=== PATIENT | female | born 1950 | race Caucasian/White ===

== ENCOUNTER 2020-01-05 04:46 | Inpatient (IN) | payer MEDICARE, OTHER ==
[~2020-01-05] VITALS: Ht 165.1 cm; Wt 83.9 kg
--- NOTE | 2020-01-05 05:05 | NUR ---
RUE PICC REMOVED PER ED MD ORDERS CATH WAS DISLODGED FROM SITE, TIP INTACT ON REMOVAL.
[2020-01-05] MEDS ORDERED: SODIUM CHLORIDE 0.9% 1000ML 2,000 ML ONE (05:06)
[2020-01-05] MEDS ORDERED: DEXTROSE 5% 250ML 250 ML IV ONE (05:08)
[2020-01-05] MEDS ORDERED: EPINEPHRINE HCL 1:1000 1ML 1 MG/ML AMP ONE ×2 (05:09→13:56)
[2020-01-05 05:10] LABS: BASOPHILS # (AUTO) 0.2 (0.0-0.1); BASOPHILS % 0.7 % (0.0-1.0); EOSINOPHILS # (AUTO) 1.5 (0.0-0.4); EOSINOPHILS % 7.2 % (0.0-6.0); HEMATOCRIT 36.1 % (34.2-44.1); HEMOGLOBIN 10.1 g/dL (12.0-16.0); LYMPHOCYTES # (AUTO) 5.8 (1.0-3.2); LYMPHOCYTES % 27.8 % (18.0-39.1); MEAN CORPUSCULAR HEMOGLOBIN 29.4 pg (28-32); MEAN CORPUSCULAR VOLUME 105.2 fL (81-99); MONOCYTES # (AUTO) 1.4 (0.2-0.8); MONOCYTES % 6.6 % (4.4-11.3); NEUTROPHILS # (AUTO) 10.6 (2.1-6.9); NEUTROPHILS % 50.7 % (38.7-80.0); PLATELET COUNT 324 x10e3/uL (140-360); RED BLOOD COUNT 3.43 x10e6/uL (3.6-5.1); RED CELL DISTRIBUTION WIDTH 17.5 % (11.7-14.4)
[2020-01-05] MEDS: EPINEPHRINE HCL 1:1000 1ML 4 MG in DEXTROSE 5% 250ML 250 ML IV PRN ×4 (05:10→23:44)
--- NOTE | 2020-01-05 05:10 | NUR ---
IO REMOVED FROM RLE, PRESSURE APPLIED
--- OUTSIDE RECORDS SUMMARY | 2020-01-05 05:18 | XMS REPORT | Continuity of Care Document ---
Author Author [facility] t Organization [facility] Address [address] [place] [address] Phone Unavailable Care Team Providers Care Book Publisher Name Role Phone Concha EDWITT, Halima PCP [place] DEWITT, Ray Attphys Cristino DEWITT, Bonnie Gaona Attphys Concepción DEWITT, Anant Attphys Alexia DEWITT, Anna Attphys Mary DEWITT, Sheryl Portillo Attphys Patricia DEWITT, Lele Hardy Attphys Chuck DEWITT, Deepali Silva Attphys [phone] Stepan DEWITT, Chidi Attphys Shayna DEWITT, Bri Attphys Margret DEWITT, Bonnie Telles Attphys Casie SCIENTIST PROPAGATOR, Radha Attphys Aravind DEWITT, Carlyn Campoverde Attphys Neville DEWITT, Luis Angel Adams Attphys Jason DEWITT, Stefani Attphys Roselyn DEWITT, Irvin Leon Attphys Sammi DEWITT, Juan Ma Attphys [phone] Adelaida DEWITT, Melvin Attphys Meenakshi Briceno Attphys Baldo DEWITT, Janiya Carlson Attphys [phone] Booker DEWITT, H Miguel Attphys Ruben DEWITT, Dorota Arusha Attphys iTm DEWITT, Errol Majed Attphys Aria Franz Attphys Unavailable Concha DEWITT, Halima Attphys Shahriar DEWITT, Boi Chicho Attphys Marla ROLLE, Shiloh Attphys Unavailable Ronda DEWITT, Ilene Attphys Gavi Kidd Attphys Unavailable Isabelle DEWITT, Dillan Guardado Attphys Ji ROLLE, Clarisa Attphys Unavailable Neha Machuca Attphys Unavailable Zacarias Cruz MD Attphys Tavares DEWITT, Forrest Hartseem Attphys Bladimir DEWITT, Karla Attphys Jessica DEWITT, Herbie Attphys Dontrell ROLLE, Crystal Attphys Unavailable Michael, Coleen Attphys Unavailable Cindi DEWITT, Katt Henderson Attphys Rutledge, Joyce Attphys Unavailable CHIHARA, RAY Admphys Unavailable TIM, MAJED Admphys Unavailable AMBROCIO MIRANDAA Admphys Unavailable Meenakshi Briceno Unavailable Payers Payer Name Policy Type Policy Number Effective Date Expiration Date S emilee MEDICAREMEDICARE PART A AND [id number] 2013-PresentHOUS [place], [place] [id number] 2013 00:00:00 Clarence Hanks CIGNACIGNA OPEN [id number] 2011-PresentHMO [id number] 2011 00:00:00 Clarence Hanks KINDREDKINDRED [id number] 2019-PresentKindred [id number] 2019 00:00:00 Clarence Hanks Problems Condition Name Condition Details Condition Category Status Onset Date Resolution Date Last Treatment Date Treating Clinician Comments Source Esophageal abnormality Esophageal abnormality Disease Active 2019-12-06 00:00:00 Clarence ojeda Peripheral eosinophilia Peripheral eosinophilia Disease Active 2019-10-25 00:00:00 Clarence ojeda Metabolic acidosis Metabolic acidosis Disease Active 2019-10-21 00:00:0 0 Clarence Hanks PAF (paroxysmal atrial fibrillation) PAF (paroxysmal atrial fibrillation) Disease Active 2019-10-21 00:00:00 Clarence Hanks Axillary artery thrombosis, left/ S/P thrombectomy Axi llary artery thrombosis, left/ S/P thrombectomy Disease Active 2019-10-05 00:00:00 Clarence Hanks Hypothermia associated with surgery Hypothermia associated with surgery Disease Active 2019-10-05 00:00:00 [place] Anasarca Anasarca Disease Active 2019-10-05 00:00:00 Clarence Hanks Red man syndrome (suspected) Red man syndrome (suspected) Disease Active 2019-10-05 00:00:00 Clarence Hanks Acute on chronic anemia Acute on chronic anemia Disease Active 2019-09-29 00:00:00 Clarence ojeda Respiratory failure requiring intubation Respiratory f ailure requiring intubation Disease Active 2019-09-22 00:00:00 Paolo Hanks Severe sepsis Severe sepsis Disease Active 2019-09-14 00:00:00 Clarence Hanks Acute postoperative pulmonary insufficiency Acute post operative pulmonary insufficiency Disease Active 2019-09-14 00:00:00 Clarence Hanks S/P L thoracotomy S/P L thoracotomy Disease Active 2019-09-14 00:00:00 Clarence Hanks s/p Hiatal Hernia repair with intercostal muscle flap s/p Hiatal Hernia repair with intercostal muscle flap Disease Active 2019-09-14 00:00:00 Clarence Hanks s/p Resection of distal esophagus, gastric pouch and j ejunostomy s/p Resection of distal esophagus, gastric pouch and jejunostomy Disease Active 2019-09-14 00:00:00 Clarence ojeda RONALD (acute kidney injury) RONALD (acute kidney injury) Disease Ac tive 2019-09-14 00:00:00 Clarence ojeda Moderate to severe tricuspid regurgitation Moderate to severe tricuspid regurgitation Disease Active 2019-09-14 00:00:00 Clarence Hanks Pulmonary hypertension Pulmonary hypertension Disease Active 2019-09-14 00:00:00 Clarence ojeda Gastrointestinal hemorrhage Gastrointestinal hemorrhage Disease Active 2019-09-13 00:00:00 Clarence Hanks Esophageal and gastrojejunostomhy perforation Esophage al and gastrojejunostomhy perforation Disease Active 2019-09-13 00:00:00 Clarence Hanks Physical deconditioning Physical deconditioning Disease Active 2019-03-28 00:00:00 Clarence ojeda Hospital-acquired pneumonia Hospital-acquired pneumonia Disease Active 2019-03-27 00:00:00 Clarence Hanks Postoperative abdominal pain Postoperative abdominal pain Disease Active 2019-03-27 00:00:00 Clarence Hanks G tube feedings G tube feedings Disease Active 2019-03-19 00:00:00 Clarence Hanks Macrocytic anemia Macrocytic anemia Disease Active 2019-03-17 00:00:00 Clarence Hanks Chronic marginal ulcer with perforation Chronic marginal ulc er with perforation Disease Active 2019-03-15 00:00:00 Overv iew: Added automatically from request for surgery [id number] Clarence Hanks Perforated abdominal viscus Perforated abdominal viscus Disease Active 2019-03-15 00:00:00 Clarence Hanks GENERALIZED ANXIETY DISORDER Condition Active 2019-02-21 00:00:00 2019-02-21 19:33:47 Meenakshi Briceno [facility] DEPRESSIVE DISORDER, MAJOR, SINGLE EPISODE, MILD Condi tion Active 2019-02-21 00:00:00 2019-02-21 19:33:47 Meenakshi Briceno [facility] RA (rheumatoid arthritis) RA (rheumatoid arthritis) Disease Ac tive 2018-12-31 00:00:00 Clarence ojeda Essential hypertension Essential hypertension Disease Active 2018-12-31 00:00:00 Clarence ojeda Acquired hypothyroidism Acquired hypothyroidism Disease Active 2018-12-31 00:00:00 Clarence ojeda Intractable vomiting with nausea Intractable vomiting with nause a Disease Active 2018-08-31 00:00:00 Dre Hanks Failure to thrive in adult Failure to thrive in adult Disease Active 2018-07-30 00:00:00 Clarence ojeda Acute cystitis without hematuria Acute cystitis without hematuri a Disease Active 2018-07-27 00:00:00 [place] Rotator cuff tendonitis, left Rotator cuff tendonitis, left Disease Active 2018-05-18 00:00:00 Clarence Hanks Chronic left shoulder pain Chronic left shoulder pain Disease Active 2018-05-11 00:00:00 Clarence ojeda Pulmonary arterial hypertension Pulmonary arterial hypertension Dis ease Active 2018-03-24 00:00:00 Clarence Hanks History of Jaycob-en-Y gastric bypass History of Jaycob-en-Y gastric bypass Disease Active 2018-03-24 00:00:00 Dre Fuist Hiatal hernia Hiatal hernia Disease Active 2018-03-24 00:00:00 Clarence Hanks Compression deformity of vertebra Compression deformity of verte bra Disease Active 2018-03-24 00:00:00 Overview: T12 [place] Marginal ulcer Marginal ulcer Disease Active 2018-01-09 00:00:00 Clarence Hanks Gastric bypass status for obesity Gastric bypass status for obes ity Disease Active 2017-08-20 00:00:00 Dre Hanks Depression Depression Disease Active 2017-08-20 00:00:00 Clarence Hanks Lumbar disc herniation Lumbar disc herniation Disease Active 2017-08-20 00:00:00 Clarence ojeda Chronic back pain Chronic back pain Disease Active 2017-08-20 00:00:00 Clarence Hanks Anxiety Anxiety Disease Active 2017-08-20 00:00:00 Clarence Hanks Pure hypercholesterolemia Pure hypercholesterolemia Disease Ac tive 2017-08-20 00:00:[address] PUD (peptic ulcer disease) PUD (peptic ulcer disease) Disease Active 2017-08-20 00:00:00 Clarence ojeda Insomnia Insomnia Disease Active 2017-08-20 00:00:00 Clarence Hanks Hepatic steatosis Hepatic steatosis Disease Active 2017-01-22 00:00:00 Clarence Hanks Hypertension Hypertension Disease Active Clarence Hanks Hyperlipidemia Hyperlipidemia Disease Active Clarence Hanks GERD (gastroesophageal reflux disease) GERD (gastroesophagea l reflux disease) Disease Active [facility] Gastric ulcer, chronic Gastric ulcer, chronic Disease Active Clarence Hanks Clotting disorder Clotting disorder Disease Active Clarence Hanks Difficulty in swallowing Difficulty in swallowing Disease Active Overview: NO SOLIDS. PT STATES ABLE TAKE HER MEDICATIONS. Clarence Hanks Disease of thyroid gland Disease of thyroid gland Disease Active Overview: subclinical hypothyroid Clarence Hanks Diverticulosis Diverticulosis Disease Active Clarence Hanks Exercises 3 to 4 times per week Exercises 3 to 4 times per week Dis ease Active Overview: WALKS FOR 30 MIN. PT STATES WILL GET SOB IF SHE GOES UP TWO FLIGHTS OF STAIRS. Clarence Hanks Fractures Fractures Disease Active Kianna Hanks History of Past Illness Condition Name Condition Details Condition Category Status Onset Date Resolution Date Last Treatment Date Treating Clinician Comments Source Shock circulatory Shock circulatory Disease Resolved 2019-10-05 00:00:00 2019-10-21 00:00:00 2019-10-21 13:26:27 Clarence Hanks Normal anion gap metabolic acidosis Normal anion gap metabolic a cidosis Disease Resolved 2019-09-30 00:00:00 2019-10-05 00:00:00 2019-10-05 17:10:33 Clarence Hanks Lactic acidosis Lactic acidosis Disease Resolved 2019-09-14 00:0 0:00 2019-09-29 00:00:00 2019-09-29 12:30:07 Clarence Mendez odist Leukopenia Leukopenia Disease Resolved 2019-09-14 00:00:00 00:00:00 2019-09-29 12:30:03 Clarence Hanks Abnormal result of cardiovascular functi on study suggestive of non-ST elevation myocardial infarction (NSTEMI) Abnormal result of cardiovascular functi on study suggestive of non-ST elevation myocardial infarction (NSTEMI) Disease Resolved 2019-03-19 00:00:00 2019-03-28 00:00:00 2019-03-28 06:13:51 Clarence Hanks Allergies, Adverse Reactions, Alerts This patient has no known allergies or adverse reactions. Family History Family Member Diagnosis Comments Start Date Stop Date Source Natural mother Lung cancer Clarence Epstein ethodist Natural sister Lung cancer Clarence Epstein ethodist Natural son COPD [facility] [facility] Social History Social Habit Start Date Stop Date Quantity Comments Source Sex Assigned At F Kianna Hanks Exposure to SARS-CoV-2 (event) Not sure Clarence Hanks Tobacco use and exposure 2019-12-13 00:00:00 2019-12-13 00:00:00 Shay courtney used Clarence Hanks Alcohol intake 2019-12-13 00:00:00 2019-12-13 00:00:00 Current drinker of alcohol (finding) Clarence Hanks social history reviewed E&M 2019-06-23 14:01:23 2019-06-23 14:01 :23 reviewed today Replaced By [facility] social history E&M 2019-06-23 14:01:23 2019-06-23 14:01:23 ed. , once, has one adult son who lives close by and another daughter who lives in [place]. for 35 yrs. City: [facility]. State: [place]. 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 Replaced By [facility] drug use, illicit 2019-06-23 14:01:23 2019-06-23 14:01:23 Never Replaced By [facility] alcohol use 2019-06-23 14:01:23 2019-06-23 14:01:23 Currently Replaced By [facility] if the patient is using/has used a vapin g item, Current, Former, Never Used, Not asked 2019-06-23 14:01:23 2019-06-23 14:01:23 No L formerly [facility] family support 2019-02-08 14:40:20 2019-02-08 14:40:20 , once, has one adult son who lives close by and another daughter who lives in [place]. for 35 yrs. Replaced By [facility] home/family situation, assessment 2019-02-08 14:40:20 2019-02-08 14:40:20 lives by herself Replaced By [facility] Alcohol Comment 2018-07-27 00:00:00 2018-07-27 00:00:00 Rarely. Clarence Hanks Smoking Status Start Date Stop Date Source Never smoker Clarence Mcclure t Medications Ordered Medication Name Filled Medication Name Start Date Stop Da te Current Medication? Ordering Clinician Indication Dosage Frequency Signature (SIG) Comments Components Source sertraline (ZOLOFT) 25 MG tablet 2019-12-28 00:00:00 01-26 23:59:00 Yes 25mg QD Take 1 tablet (25 mg total) by mouth medhat ly for 30 days. Clarence Hanks levothyroxine (SYNTHROID) 200 mcg tablet 2019-12 00:00:00 2020-01-27 23:59:00 Yes 200ug QD 1 tablet (200 mcg total) by g-tube route daily for 30 days. Clarence Hanks furosemide (LASIX) 20 mg tablet 2019-12-28 00:00:00 23:59:00 Yes 20mg QD Take 1 tablet (20 mg total) by mouth daily for 30 days. Clarence Hanks fluconazole in NaCl (DIFLUCAN) 400 mg/200 mL IVPB 2019-12-28 00:00:00 2020-01-02 23:59:00 No 400mg Q24H Infus e 200 mL (400 mg total) into a venous catheter daily for 5 days. Clarence chavez oxymetazoline (AFRIN) 0.05 % nasal spray 2019-12-27 00:00:00 Yes 2{spray} Q.5D 2 sprays into each nostril 2 (two) times a day. Clarence Hanks zinc oxide 20 % ointment 2019-12-27 00:00:00 2020-01-26 23:59:00 Yes Q.[id number] Apply topically 3 (three) times a day as needed for irritation for up to 30 days. Clarence simon vitamin A & D ointment 2019-12-27 00:00:2020-01-26 23:59:00 Yes Apply topically as needed for dry skin for up to 30 days. Clarence Hanks phenol (CHLORASEPTIC) 1.4 % aerosol,spray 2019-03 0-05 00:00:00 2020-01-26 23:59:00 Yes 1{spray} Q6H Apply 1 spray to the mouth or throat every 6 (six) hours as needed (sore throat) for up to 30 days. Clarence Hanks ondansetron (ZOFRAN) 4 mg/2 mL injection 2019-12 00:00:00 2020-01-26 23:59:00 Yes 4mg Q8H Infuse 2 mL (4 mg total) into a venous catheter every 8 (eight) hours as needed for nausea or vomiting for up to 30 days. Clarence Hanks midodrine (PROAMATINE) 5 MG tablet 2019-12-27 00:00:00 2020-01-26 23:59:00 Yes 5mg Q8H Take 1 tablet ( 5 mg total) by mouth every 8 (eight) hours for 30 days. Clarence Hanks flecainide (TAMBOCOR) 100 MG tablet 2019-12-27 00:00:0 0 2020-01-26 23:59:00 Yes 100mg Q.5D Take 1 tablet ( 100 mg total) by mouth every 12 (twelve) hours for 30 days. Clarence Hanks acetaminophen (TYLENOL) 650 mg/20.3 mL solution 2019-12-27 00:00:00 2020-01-26 23:59:00 Yes 1000mg Q8H Take 31.23 mL (1,000 mg total) by mouth every 8 (eight) hours as needed (mild pain) for up to 30 days. Clarence Hanks OLANZapine zydis (ZyPREXA) 5 MG disintegrating tablet 2019-12-27 00:00:00 2020-01-26 23:59:00 Yes 5mg QD Take 1 tablet (5 mg total) by mouth nightly for 30 days. Clarence Hanks ipratropium (ATROVENT) 0.02 % nebulizer solution 2019-12-27 00:00:00 2020-01-26 23:59:00 Yes Esophageal abnormality .5mg Q.33 [id number] Take 2.5 mL (0.5 mg total) by nebulization every 6 (six) hours while awake for 30 days. Clarence Hanks clonAZEPAM (KlonoPIN) 1 MG tablet 2019-12-27 00:00:00 2019 23:59:00 Yes 1mg Q.5D Take 1 tablet (1 mg total) by mouth 2 (two) times a day for 10 days. Clarence Hanks cyanocobalamin 1,000 mcg/mL injection 2019-11-22 00:00 :00 2019-12-27 00:00:00 No 1000ug Q28D Inject 1 mL (1, 000 mcg total) into the shoulder, thigh, or buttocks every 28 days. Clarence Mcclure t pantoprazole 4 mg/mL in sodium chloride injection 2019-11-06 00:00:00 Yes 40mg QD Infuse 10 mL (40 mg total) into a venous catheter daily before breakfast. Clarence Hanks levothyroxine 20 mcg/mL in sodium chloride injection 2019-11-06 00:00:00 2019-12-27 00:00:00 No 80ug QD Infus e 4 mL (80 mcg total) into a venous catheter daily. Clarence Hanks lidocaine (LIDODERM) 5 % 2019-11-06 00:00:00 2019-12-27 00:00:00 No 1{patch} Q24H Place 1 patch on the skin da krista for 30 days. Remove & Discard patch within 12 hours or as directed by MD Clarence Hanks cyanocobalamin, vitamin B-12, (VITAMIN B-12) 1,000 mcg table t, sublingual 2019-11-05 20:35:08 2019-11-05 00:00:[address] under the tongue daily. Clarence Hanks FOLIC ACID/MULTIVIT-MIN/LUTEIN (CENTRUM SILVER ORAL) 2019-11-05 20:35:08 2019-11-05 00:00:00 No 1{tbl} QD Take 1 tablet by lourdes th daily. Clarence Hanks calcium citrate-vitamin D3 (CITRACAL+D) 315-200 mg-unit per tablet 2019-11-05 20:35:08 2019-11-05 00:00:00 No 1{tbl} QD Take 1 tabl et by mouth daily. Clarence Hanks ferrous sulfate 325 (65 FE) MG tablet 2019-11-05 20:35 :08 2019-11-05 00:00:00 No 325mg QD Take 325 mg by mouth daily with breakfas t. Clarence Hanks cholecalciferol, vitamin D3, (VITAMIN D3) 1,000 unit capsule 2019-11-05 20:35:08 2019-11-05 00:00:00 No 1000U QD Take 1,000 Units by mouth daily. Clarence Hanks atorvastatin (LIPITOR) 20 MG tablet 2019-11-05 20:35:0 8 2019-11-05 00:00:00 No 20mg QD Take 20 mg by mouth daily. Default OP in s Clarence Hanks dicyclomine (BENTYL) 10 mg/5 mL syrup 2019-11-05 20:35 :08 2019-11-05 00:00:00 No 20mg Q.25D Take 20 mg by m outh 4 (four) times a day before meals and nightly. Clarence Hanks clonAZEPAM (KlonoPIN) 1 MG tablet 2019-11-05 20:35:08 2019 00:00:00 No 1mg Q.5D Take 1 mg by mouth 2 (two) times a day a s needed for seizures. Clarence Hanks apixaban (ELIQUIS) 5 mg tablet 2019-11-05 00:00:00 Yes 5mg Q.5D Take 1 tablet (5 mg total) by mouth 2 (two) times a day. Clarence Hanks budesonide (PULMICORT) 0.5 mg/2 mL nebulizer solution 2019-11-05 00:00:00 Yes Respiratory failure requiring intubation (HCC) .5mg Q.5D Take 2 mL (0.5 mg total) by nebulization 2 (two) times a day. Clarence Hanks bisacodyL (DULCOLAX) 10 mg suppository 2019-10-23 4 00:00:00 2020-12-05 23:59:00 Yes 10mg Q24H Insert 1 suppo sitory (10 mg total) into the rectum daily as needed for constipation for up to 30 days. Clarence Hanks acetaminophen (TYLENOL) 650 MG suppository 11-04 00:00:00 2019-12-27 00:00:00 No 650mg Q6H Insert 1 suppo sitory (650 mg total) into the rectum every 6 (six) hours as needed for fever for up to 30 days. Clarence Hanks acetylcysteine (MUCOMYST) 200 mg/mL (20 %) nebulizer solutio n 2019-11-05 00:00:00 2019-12-27 00:00:00 No 4mL Q.[id number] Take 4 mL by nebulization every 6 (six) hours while awake. Clarence Hanks BUMETanide (BUMEX) 0.25 mg/mL injection 00:00:00 2019-12-27 00:00:00 No .5mg Q.5D Infuse 2 mL (0 .5 mg total) into a venous catheter 2 (two) times a day. Clarence Hanks zinc oxide-cod liver oil (DESITIN) 40 % paste 20 10-11-13 00:00:00 2019-12-27 00:00:00 No Q.[id number] Ap ply topically 3 (three) times a day as needed (perianal care). Clarence chavez triamcinolone acetonide (triamcinolone 50 mg in lubriderm) 5 0 mg lotion 2019-11-05 00:00:2019-12-27 00:00:00 No 50mg Q.5D Apply 50 mg topically 2 (two) times a day. Clarence Hanks dextrose 50% syringe 2019-11-05 00:00:00 2019-12-27 00:00:00 No 12.5g Infuse 25 mL (12.5 g total) into a venous catheter every 20 (twenty) minutes as needed (If blood glucose is between 41-69 mg/dL). Clarence Hanks dextrose 10 % infusion 2019-11-05 00:00:00 2019-12-27 00:00:00 N o 40mL/h Infuse 40 mL/hr into a venous catheter continuously as neede d (hypoglycemia). Clarence Hanks dextrose 50% syringe 2019-11-05 00:00:00 2019-12-27 00:00:00 No 25g Infuse 50 mL (25 g total) into a venous catheter every 20 (twenty) minutes as needed (If blood glucose is 40 mg/dL or LESS). Clarence Hanks diphenhydrAMINE (BENADRYL) 50 mg/mL injection 20 10-11-13 00:00:00 2019-12-27 00:00:00 No 25mg Q8H Infuse 0.5 mL (25 mg total) into a venous catheter every 8 (eight) hours as needed for itching. Clarence Hanks insulin lispro (HUMALOG, ADMELOG) 100 unit/mL injection 2019-11-05 00:00:00 2019-12-27 00:00:00 No 0U Q4H Injec t 0-7 Units under the skin every 4 (four) hours. Clarence Hanks ipratropium (ATROVENT) 0.02 % nebulizer solution 2019-11-05 00:00:00 2019-12-27 00:00:00 No Respiratory failure requiring intu bation (HCC) .5mg Q.25D Take 2.5 mL (0.5 mg total) by nebulization every 6 (six) hours. Clarence Hanks labetaloL (NORMODYNE) 20 mg/4 mL (5 mg/mL) syringe injection syringe 2019-11-05 00:00:00 2019-12-27 00:00:00 No 5mg Q4H Infuse 1 mL (5 mg total) into a venous catheter every 4 (four) hours as needed (for SBP >160; hold for hr <60). Clarence Hanks metoprolol tartrate (LOPRESSOR) 25 mg tablet 00:00:00 2019-12-27 00:00:00 No 12.5mg Q.5D Take 0.5 table ts (12.5 mg total) by mouth 2 (two) times a day. Clarence Hanks naloxone (NARCAN) 0.4 mg/mL injection 2019-11-05 00:00 :00 2019-12-27 00:00:00 No .2mg Infuse 0.5 mL ( 0.2 mg total) into a venous catheter once as needed for opioid reversal or respiratory depression (as needed for respiratory rate 8 per minute or less OR patient sommnolent and difficult to arouse (POSS GREATER than 3).). Clraence Hanks OLANZapine zydis (ZyPREXA) 5 MG disintegrating tablet 2019-11-05 00:00:00 2019-12-27 00:00:00 No 5mg QD Take 1 tablet (5 mg total) by mouth nightly for 30 days. Clarence Hanks ondansetron (ZOFRAN) 4 mg/2 mL injection 2019-10 00:00:00 2019-12-27 00:00:00 No 4mg Q8H Infuse 2 mL (4 mg total) into a venous catheter every 8 (eight) hours as needed for nausea or vomiting. Clarence Hanks oxymetazoline (AFRIN) 0.05 % nasal spray 2019-10 00:00:00 2019-12-27 00:00:00 No 2{spray} Q.5D 2 sprays into each nostril 2 (two) times a day for 30 days. Clarence Hanks acetaZOLAMIDE 500 mg in dextrose 5% 50 mL IVPB 2 00:00:00 2019-12-06 00:00:00 No 500mg Q6H Infuse 500 mg into a venous catheter every 6 (six) hours. Clarence Hanks traMADoL (ULTRAM) 50 mg tablet 2019-11-05 00:00:00 2019-10-24 4 23:59:00 No acute pain 50mg Q6H Take 1 tablet (50 mg total) by mouth every 6 (six) hours as needed for moderate pain for up to 10 days .acute pain. Clarence Hanks HYDROcodone-acetaminophen (HYCET) 2.5-108.3 mg/5 mL solution 2019-11-05 00:00:00 2019-11-15 23:59:00 No acute pain 10mL Q4H Take 10 mL by mouth every 4 (four) hours as needed for moderate pain for up to 10 days .acute pain. Max Daily Amount: 60 mL Clarence Hanks HYDROcodone-acetaminophen (HYCET) 2.5-108.3 mg/5 mL solution 2019-11-05 00:00:00 2019-11-15 23:59:00 No acute pain 20mL Q4H Take 20 mL by mouth every 4 (four) hours as needed for moderate pain for up to 10 days .acute pain. Max Daily Amount: 120 mL Clarence Hanks ketoconazole (NIZORAL) 2 % shampoo 2019-08-26 00:00:00 23:59:00 No Itchy scalp Q.5W Apply topically 2 (two) times a week for 14 days. Apply to damp skin, lather, leave on 5 minutes, and rinse Clarence Hanks sulfamethoxazole-trimethoprim (BACTRIM DS) 800-160 mg per ta blet 2019-08-26 00:00:00 2019-08-31 23:59:00 No Urinary trac t infection without hematuria, site unspecified 1{tbl} Q.5D Take 1 tablet by lourdes th 2 (two) times a day for 5 days. Clarence Hanks permethrin (Lice Treatment, permethrin,) 1 % liquid 2019-08-26 00:00:00 2019-08-26 23:59:00 No Itchy scalp Apply topically once for 1 dose. Clarence Hanks tiZANidine (ZANAFLEX) 4 MG tablet 2019-08-23 11:49:49 2019 00:00:00 No 4mg QD Take 4 mg by mouth nightly. 1/2 tab ever y 8 hours Clarence Hanks tiZANidine (ZANAFLEX) 4 MG tablet 2019-08-23 00:00:00 2019 23:59:00 No Chronic low back pain, unspecified back pain laterality, unspecified whether sciatica present 2mg Q8H Take 0.5 tablets (2 mg total) by mouth every 8 (eight) hours as needed for muscle spasms for up to 90 days. Clarence Hanks ondansetron (ZOFRAN) 4 MG tablet 2019-06-02 00:00:00 2019-10 00:00:00 No Nausea 4mg Q8H Take 1 tablet (4 mg total) by mouth every 8 (eight) hours as needed for nausea or vomiting. Clarence parker diclofenac (VOLTAREN) 1 % gel 2019-05-24 00:00:00 2019-11-05 00:00:00 No Chronic left shoulder pain Q.25D Apply topically 4 (four) times a day. Clarence Hanks atenolol (TENORMIN) 25 MG tablet 2019-03-30 00:00:00 2019-04 23:59:00 No 25mg QD 1 tablet (25 mg total) by g-tube route daily fo r 30 days. Clarence Hanks TPN FOR DISCHARGE 2019-03-29 00:00:00 2019-11-05 00:00:00 No Patient is on tube feedings(see most recent orders) Clarence Hanks enoxaparin (LOVENOX) 40 mg/0.4 mL syringe 03-29 00:00:00 2019-04-28 23:59:00 No 40mg QD Inject 0.4 mL (40 mg total) under the skin daily for 30 days. Clarence Hanks HYDROcodone-acetaminophen (NORCO) 7.5-325 mg per tablet 2019-03-29 00:00:00 2019-03-29 00:00:00 No acute pain 1{tbl} Q6H 1 tab let by g-tube route every 6 (six) hours as needed for moderate pain or severe pain for up to 8 days .acute pain. Max Daily Amount: 4 tablets [place] [facility] methocarbamol (ROBAXIN) 500 MG tablet 2019-03-29 00:00 :00 2019-03-29 00:00:00 No 500mg Q.25D 1 tablet (500 m g total) by g-tube route 4 (four) times a day for 30 days. Clarence Hanks acetaminophen-codeine (TYLENOL WITH CODEINE #3) 300-30 mg pe r tablet 2019-03-29 00:00:00 2019-03-29 00:00:00 No acute pain 1{tbl} Q4H Take 1 tablet by mouth every 4 (four) hours as needed for severe pain for up to 10 days .acute pain. Clarence Hanks (CLONAZEPAM) 1 MG TABS 2019-02-08 00:00:00 Yes Meenakshi Briceno Take 1/2-1 tablet By Mouth As Needed daily for anxiety Replaced By [facility] (MIRTAZAPINE) 45 MG TABS 2019-02-08 00:00:00 Yes Manjula zaid Briceno 1{Tablet} 1xD Take 1 tablet By Mouth [facility] (DOXEPIN HCL) 10 MG CAPS 2019-02-08 00:00:00 2019-06-23 00 :00:00 No Meenakshi Briceno 1{Capsule} 1xD Take 1 capsule By Mouth [facility] ZOLOFT (SERTRALINE HCL) 100 MG TABS 2019-02-08 00:00:0 0 2019-06-23 00:00:00 No Meenakshi Briceno 1{Tablet} 1xD Take 1 tablet By Mouth [facility] ondansetron (ZOFRAN) 4 MG tablet 2019-02-03 00:00:00 2019-05 00:00:00 No Nausea 4mg Q8H Take 1 tablet (4 mg total) by mouth every 8 (eight) hours as needed for nausea or vomiting. Clarence Epstein ethodi promethazine (PHENERGAN) 12.5 MG tablet 00:00:00 2019-02-18 23:59:00 No 12.5mg Q6H Take 1 tablet (12.5 mg total) by mouth every 6 (six) hours as needed for nausea or vomiting for up to 30 days. Clarence Hanks promethazine (PHENERGAN) 12.5 MG tablet 00:00:00 2019-01-19 00:00:00 No TAKE 1 TABLET BY LOURDES TH EVERY 6 HOURS NEEDED FOR VOMITING Clarence Hanks sulfamethoxazole-trimethoprim (BACTRIM DS) 800-160 mg per ta blet 2019-01-06 00:00:00 2019-01-11 23:59:00 No Urinary trac t infection without hematuria, site unspecified 1{tbl} Q.5D Take 1 tablet by lourdes th 2 (two) times a day for 5 days. Clarence Hanks escitalopram (LEXAPRO) 10 MG tablet 2018-12-31 00:00:0 0 2019-03-31 23:59:00 No Current moderate episode of major depressive disorder without prior episode (HCC) 10mg QD Take 1 tablet (10 mg total) by mouth daily for 90 days. Clarence Hanks mirtazapine (REMERON) 45 MG tablet 2018-12-31 00:00:00 202 23:59:00 No Current moderate episode of major depres sive disorder without prior episode (HCC) 45mg QD Take 1 tablet (45 mg total) by mouth nightly fo r 90 days. Clarence Hanks ondansetron (ZOFRAN) 4 MG tablet 2018-12-31 00:00:00 2018-12 00:00:00 No Nausea 4mg Q8H Take 1 tablet (4 mg total) by mouth every 8 (eight) hours as needed for nausea or vomiting. Clarence parker nitrofurantoin, macrocrystal-monohydrate, (MACROBID) 100 MG capsule 2018-12-31 00:00:00 2019-01-07 23:59:00 No Urinary trac t infection without hematuria, site unspecified 100mg Q.5D Take 1 capsule (100 mg total) by mouth 2 (two) times a day for 7 days. Clarence Hanks sucralfate (CARAFATE) 1 gram tablet 2018-11-04 00:00:0 0 2019-11-05 00:00:00 No 1g Q.25D Take 1 tablet (1 g total) by mouth 4 (fo ur) times a day. Clarence Hanks diclofenac (VOLTAREN) 1 % gel 2018-11-04 00:00:00 2019-05-23 00:00:00 No Chronic left shoulder pain Q.25D Apply topically 4 (four) times a day. Clarence Hanks TPN FOR DISCHARGE 2018-09-07 00:00:00 2019-03-29 00:00:00 No See most recent TPN order. Clarence Hanks Immunizations Ordered Immunization Name Filled Immunization Name Date Status Comments Source Tdap 2019-08-06 00:00:00 Mary Hanks FLUZONE HIGH-DOSE PF 2018-12-31 00:00:00 Completed Clarence Hanks FLUCELVAX QUAD PF 2018-01-10 00:00:00 Completed Clarence Hanks Vital Signs Vital Name Observation Time Observation Value Comments Source Heart rate 2019-12-27 17:41:00 86 /min Clarence Hanks Respiratory rate 2019-12-27 17:41:00 18 /min Hayley Hanks Oxygen saturation in Arterial blood by Pulse oximetry 2019-03 17:30:00 97 /min Clarence Hanks Systolic blood pressure 2019-12-27 15:50:00 112 mm[Hg] Clarence Hanks Diastolic blood pressure 2019-12-27 15:50:00 64 mm[Hg] Clarence Hanks Body temperature 2019-12-27 15:50:00 36.94 Emi Hayley Hanks Body weight 2019-12-27 03:41:52 77.111 kg Clarence Hanks BMI 2019-12-27 03:41:52 27.44 kg/m2 Clarence Hanks Body height 2019 06:21:00 167.6 cm Clarence Hanks pulse rate 2019-02-08 14:40:20 121 /min [facility] ACTV8 blood pressure, diastolic 2019-02-08 14:40:20 70 mm[Hg] Replaced By [facility] blood pressure, systolic 2019-02-08 14:40:20 97 mm[Hg] Replaced By [facility] weight E&M 2019-02-08 14:40:20 116.38 [lb_av] Replaced By [facility] weight in kilograms E&M 2019-02-08 14:40:20 52.90 kg Replaced By [facility] height in centimeters E&M 2019-02-08 14:40:20 165.10 cm Replaced By [facility] Procedures Procedure Date / Time Performed Performing Clinician Sourc e POC GLUCOSE 2019-12-27 12:04:00 Jimenez Carr [facility] COMPLETE BLD COUNT W/AUTO DIFF 2019-12-27 05:00:00 Franklin Carr B NATRIURETIC PEPTIDE 2019-12-27 05:00:00 Jimenez Carr on [facility] POC GLUCOSE 2019-12-27 04:52:00 Jimenez Carr [facility] BASIC METABOLIC PANEL 2019-12-27 04:00:00 Jimenez Carr on [facility] MAGNESIUM LEVEL 2019-12-27 04:00:00 Jimenez Carr [facility] ESTIMATED GFR 2019-12-27 04:00:00 Jimenez Carr [facility] POC GLUCOSE 2019-12-26 23:54:00 Jimenez Carr [facility] POC GLUCOSE 2019-12-26 17:11:00 Jimenez Carr [facility] POC GLUCOSE 2019-12-26 11:20:00 Jimenez Carr [facility] POC GLUCOSE 2019-12-26 07:42:00 Jimenez Carr [facility] POC GLUCOSE 2019-12-26 05:30:00 Jimenez Carr [facility] HC COMPLETE BLD COUNT W/AUTO DIFF 2019-12-26 05:20:00 Franklin Carr [facility] B NATRIURETIC PEPTIDE 2019-12-26 05:20:00 Jimenez Carr on [facility] BASIC METABOLIC PANEL 2019-12-26 04:00:00 Jimenez Carr on [facility] MAGNESIUM LEVEL 2019-12-26 04:00:00 Jimenez Carr [facility] ESTIMATED GFR 2019-12-26 04:00:00 Jimenez Carr [facility] POC GLUCOSE 2019-12-25 20:50:00 Jimenez Carr [facility] POC GLUCOSE 2019-12-25 17:14:00 Jimenez Carr [facility] POC GLUCOSE 2019-12-25 11:41:00 Jimenez Carr [facility] ECG 12-LEAD 2019-12-25 10:16:59 Benjamín Shiragabriel Lima Meth odist POC GLUCOSE 2019-12-25 07:15:00 Jimenez Carr [facility] HC COMPLETE BLD COUNT W/AUTO DIFF 2019-12-25 05:00:00 Franklin Carr [facility] B NATRIURETIC PEPTIDE 2019-12-25 05:00:00 Jimenez Carr on [facility] POC GLUCOSE 2019-12-25 04:11:00 Jimenez Carr [facility] BASIC METABOLIC PANEL 2019-12-25 04:00:00 Jimenez Carr on [facility] MAGNESIUM LEVEL 2019-12-25 04:00:00 Jimenez Carr [facility] ESTIMATED GFR 2019-12-25 04:00:00 Jimenez Carr [facility] POC GLUCOSE 2019-12-24 21:03:00 Jimenez Carr [facility] POC GLUCOSE 2019-12-24 17:31:00 Jimenez Carr [facility] POC GLUCOSE 2019-12-24 12:51:00 Jimenez Carr [facility] ECG 12-LEAD 2019-12-24 09:23:57 BenjamínShira Meth odist POC GLUCOSE 2019-12-24 09:10:00 Jimenez Carr [facility] XR CHEST 1 VW PORTABLE 2019-12-24 08:45:00 Robyn Pacheco on [facility] HC COMPLETE BLD COUNT W/AUTO DIFF 2019-12-24 05:12:00 Franklin Carr [facility] BASIC METABOLIC PANEL 2019-12-24 05:12:00 Jimenez Carr on [facility] MAGNESIUM LEVEL 2019-12-24 05:12:00 Jimenez Carr [facility] B NATRIURETIC PEPTIDE 2019-12-24 05:12:00 Jimenez Carr on [facility] ESTIMATED GFR 2019-12-24 05:12:00 Jimenez Carr Met [facility] POC GLUCOSE 2019-12-24 00:27:00 Jimenez Carr Met [facility] POC GLUCOSE 2019-12-23 20:42:00 Jimenez Carr [facility] POC GLUCOSE 2019-12-23 17:30:00 Jimenez Carr [facility] POC GLUCOSE 2019-12-23 12:03:00 Jimenez Crar [facility] POC GLUCOSE 2019-12-23 09:00:00 Jimenez Carr [facility] POC GLUCOSE 2019-12-23 05:20:00 Jimenez Carr [facility] HC COMPLETE BLD COUNT W/AUTO DIFF 2019-12-23 04:15:00 Franklin Carr [facility] BASIC METABOLIC PANEL 2019-12-23 04:15:00 Jimenez Carr on [facility] MAGNESIUM LEVEL 2019-12-23 04:15:00 Jimenez Carr [facility] B NATRIURETIC PEPTIDE 2019-12-23 04:15:00 Jimenez Carr on [facility] ESTIMATED GFR 2019-12-23 04:15:00 Jimenez Carr [facility] POC GLUCOSE 2019-12-22 20:56:00 Jimenez Carr [facility] POC GLUCOSE 2019-12-22 16:58:00 Jimenez Carr [facility] POC GLUCOSE 2019-12-22 11:44:00 Jimenez Carr [facility] FL MODIFIED BARIUM SWALLOW 2019-12-22 10:31:23 Junior Robyn Boone david [facility] POC GLUCOSE 2019-12-22 07:28:00 Jimenez Carr [facility] HC COMPLETE BLD COUNT W/AUTO DIFF 2019-12-22 03:55:00 Franklin Carr [facility] BASIC METABOLIC PANEL 2019-12-22 03:55:00 Jimenez Carr on [facility] MAGNESIUM LEVEL 2019-12-22 03:55:00 Jimenez Carr [facility] B NATRIURETIC PEPTIDE 2019-12-22 03:55:00 Jimenez Carr on [facility] ESTIMATED GFR 2019-12-22 03:55:00 Jimenez Carr [facility] POC GLUCOSE 2019-12-21 21:07:00 Jimenez Carr [facility] POC GLUCOSE 2019-12-21 17:39:00 Jimenez Carr [facility] POC GLUCOSE 2019-12-21 11:29:00 Jimenez Carr [facility] PROTEIN, TOTAL 2019-12-21 08:05:00 Josiah Rdz [facility] POC GLUCOSE 2019-12-21 07:26:00 Jimenez Carr [facility] POC GLUCOSE 2019-12-21 03:56:00 Jimenez Carr [facility] POC GLUCOSE 2019-12-20 21:12:00 Jimenez Carr [facility] POC GLUCOSE 2019-12-20 18:59:00 Jimenez Carr [facility] POC GLUCOSE 2019-12-20 12:28:00 Jimenez Carr [facility] POC GLUCOSE 2019-12-20 07:20:00 Jimenez Carr [facility] BASIC METABOLIC PANEL 2019-12-20 05:25:00 Manjinder Lopez [facility] HC COMPLETE BLD COUNT W/AUTO DIFF 2019-12-20 05:25:00 Myah Lopez [facility] MAGNESIUM LEVEL 2019-12-20 05:25:00 BiowCjgavi Mendez odist PHOSPHORUS LEVEL 2019-12-20 05:25:00 Manjinder Lopez [facility] ESTIMATED GFR 2019-12-20 05:25:00 Luke Sparks Meth [facility] POC GLUCOSE 2019-12-19 20:54:00 Jimenez Carr [facility] POC GLUCOSE 2019-12-19 17:14:00 Jimenez Carr [facility] PROTHROMBIN TIME WITH INR 2019-12-19 16:00:00 Jimenez Carr XR CHEST 1 VW 2019-12-19 11:56:08 Wisam Yang US THORACENTESIS WITH IMAGING 2019-12-19 11:45:00 Jimenez Carr AEROBIC CULTURE 2019-12-19 11:18:00 Jimenez Carr [facility] ANAEROBIC CULTURE 2019-12-19 11:18:00 Jimenez Carr M ethodist GRAM STAIN 2019-12-19 11:18:00 Jimenez Carr [facility] GLUCOSE LEVEL, MISC FLUID 2019-12-19 11:18:00 Jimenez Carr PROTEIN, MISC FLUID 2019-12-19 11:18:00 Jimenez Carr CELL COUNT AND DIFFERENTIAL, BODY FLUID 2019-12-19 11:18:00 Jimenez Carr POC GLUCOSE 2019-12-19 07:53:00 Jimenez Carr [facility] XR CHEST 1 VW PORTABLE 2019-12-19 07:13:38 BiowManjinder on [facility] BASIC METABOLIC PANEL 2019-12-19 03:55:00 Biow, Manjinder Kiser n [facility] HC COMPLETE BLD COUNT W/AUTO DIFF 2019-12-19 03:55:00 Myah Lopez [facility] MAGNESIUM LEVEL 2019-12-19 03:55:00 BioManjinder padilla Meth odist PHOSPHORUS LEVEL 2019-12-19 03:55:00 Manjinder Lopez Met [facility] TOTAL IRON BINDING CAPACITY 2019-12-19 03:55:00 Jimenez Carr ESTIMATED GFR 2019-12-19 03:55:00 Luke Sparks Meth odist POC GLUCOSE 2019-12-18 22:14:00 Jimenez Carr [facility] TRANSFUSE RED BLOOD CELLS 2019-12-18 20:56:19 Jimenez Carr [facility] POC GLUCOSE 2019-12-18 18:01:00 Jimenez Carr [facility] TRANSFUSE RED BLOOD CELLS 2019-12-18 16:38:04 Jimenez Carr [facility] US CHEST 2019-12-18 14:47:17 Jimenez Carr [facility] POC GLUCOSE 2019-12-18 11:17:00 Jimenez Carr [facility] ECG 12-LEAD 2019-12-18 09:03:29 Shira Butts Meth [facility] POC GLUCOSE 2019-12-18 07:40:00 Jimenez Carr [facility] XR CHEST 1 VW PORTABLE 2019-12-18 06:38:29 BiowManjinder [facility] PREPARE RBC 2019-12-18 06:00:00 Jimenez Carr [facility] BASIC METABOLIC PANEL 2019-12-18 04:00:00 BiowManjinder [facility] HC COMPLETE BLD COUNT W/AUTO DIFF 2019-12-18 04:00:00 Myah Lopez [facility] MAGNESIUM LEVEL 2019-12-18 04:00:00 Manjinder Lopez odist PHOSPHORUS LEVEL 2019-12-18 04:00:00 Manjinder Lopez hodist ESTIMATED GFR 2019-12-18 04:00:00 Luke Sparks Meth [facility] SMEAR REVIEW 2019-12-18 04:00:00 Luke Sparks Meth odist POC GLUCOSE 2019-12-17 21:11:00 Jimenez Carr [facility] POC GLUCOSE 2019-12-17 17:22:00 Jimenez Carr [facility] POC GLUCOSE 2019-12-17 12:09:00 Jimenez Carr [facility] ECG 12-LEAD 2019-12-17 10:49:39 Shira Butts Meth [facility] ECG 12-LEAD 2019-12-17 10:39:56 BiowManjinder Meth odist POC GLUCOSE 2019-12-17 07:53:00 Jimenez Carr [facility] POC GLUCOSE 2019-12-17 03:44:00 Jimenez Carr [facility] HC COMPLETE BLD COUNT W/AUTO DIFF 2019-12-17 03:00:00 Franky Lewis [facility] MAGNESIUM LEVEL 2019-12-17 00:00:00 Hemal Kaur [facility] PHOSPHORUS LEVEL 2019-12-17 00:00:00 Hemal Kaur ethodist BASIC METABOLIC PANEL 2019-12-17 00:00:00 Phi Lewis ESTIMATED GFR 2019-12-17 00:00:00 Luke Sparks Meth odist POC GLUCOSE 2019-12-16 23:10:00 Jimenez Carr Met [facility] POC GLUCOSE 2019-12-16 21:10:00 Jimenez Carr Met [facility] POC GLUCOSE 2019-12-16 17:11:00 Jimenez Carr Met [facility] POC GLUCOSE 2019-12-16 12:27:00 Jimenez Carr [facility] ECG 12-LEAD 2019-12-16 10:35:41 Shira Butts Meth odist POC GLUCOSE 2019-12-16 08:38:00 Jimenez Carr [facility] XR CHEST 1 VW PORTABLE 2019-12-16 06:15:54 BiowManjinder on [facility] POC GLUCOSE 2019-12-16 04:55:00 Jimenez Carr [facility] MAGNESIUM LEVEL 2019-12-16 04:50:00 Hemal Kaur [facility] PHOSPHORUS LEVEL 2019-12-16 04:50:00 Hemal Kaur ethodist HC COMPLETE BLD COUNT W/AUTO DIFF 2019-12-16 04:50:00 Franky Lewis [facility] BASIC METABOLIC PANEL 2019-12-16 04:50:00 Phi Lewis ESTIMATED GFR 2019-12-16 04:50:00 Luke Sparks Meth odist POC GLUCOSE 2019-12-16 00:31:00 Jimenez Carr Met [facility] POC GLUCOSE 2019-12-15 20:55:00 Jimenez Carr Met [facility] POC GLUCOSE 2019-12-15 17:15:00 Jimenez Carr [facility] ECG 12-LEAD 2019-12-15 12:10:45 BenjamínShira Clarence Meth odist POC GLUCOSE 2019-12-15 12:07:00 Jimenez Carr [facility] FL MODIFIED BARIUM SWALLOW 2019-12-15 11:15:24 Robyn Pacheco [facility] HEMOGLOBIN & HEMATOCRIT 2019-12-15 08:35:00 TaffePhi villeda POC GLUCOSE 2019-12-15 07:50:00 Jimenez Carr [facility] XR CHEST 1 VW PORTABLE 2019-12-15 05:49:44 TafPhi sanders POC GLUCOSE 2019-12-15 05:00:00 Jimenez Carr [facility] MAGNESIUM LEVEL 2019-12-15 04:30:00 Hemal Kaur [facility] PHOSPHORUS LEVEL 2019-12-15 04:30:00 Hemal Kaur M ethodist HC COMPLETE BLD COUNT W/AUTO DIFF 2019-12-15 04:30:00 Franky Lewis BASIC METABOLIC PANEL 2019-12-15 04:30:00 Phi Lewis FOLATE LEVEL 2019-12-15 04:30:00 Phi Lewis ESTIMATED GFR 2019-12-15 04:30:00 Luke Sparks Meth odist POC GLUCOSE 2019-12-15 00:10:00 Jimenez Carr [facility] POC GLUCOSE 2019-12-14 20:25:00 Jimenez Carr [facility] POC GLUCOSE 2019-12-14 17:18:00 Jimenez Carr Met [facility] POC GLUCOSE 2019-12-14 13:23:00 Jimenez Carr Met [facility] POC GLUCOSE 2019-12-14 09:01:00 Jimenez Carr [facility] XR CHEST 1 VW PORTABLE 2019-12-14 09:00:00 Josiah Rdz [facility] POC GLUCOSE 2019-12-14 04:53:00 Jimenez Carr [facility] HC COMPLETE BLD COUNT W/AUTO DIFF 2019-12-14 04:25:00 Franky Lewis COMPREHENSIVE METABOLIC PANEL 2019-12-14 04:25:00 Phi Lewis [facility] ESTIMATED GFR 2019-12-14 04:25:00 Luke Sparks Meth odist POC GLUCOSE 2019-12-14 01:13:00 Jimenez Carr [facility] POC GLUCOSE 2019-12-13 21:15:00 Jimenez Carr [facility] POC GLUCOSE 2019-12-13 17:14:00 Jimenez Carr [facility] XR CHEST 1 VW PORTABLE 2019-12-13 13:59:48 Josiah Harper fernandaellen Clarence [facility] POC GLUCOSE 2019-12-13 11:49:00 Jimenez Carr [facility] RESPIRATORY CULTURE 2019-12-13 11:21:00 Jimenez Carr [facility] FUNGUS CULTURE 2019-12-13 11:21:00 Jimenez Carr Met [facility] AFB CULTURE 2019-12-13 11:21:00 Jimenez Carr Met [facility] AFB STAIN 2019-12-13 11:21:00 Jimenez Carr [facility] FUNGUS SMEAR 2019-12-13 11:21:00 Jimenez Carr [facility] XR CHEST 1 VW PORTABLE 2019-12-13 10:05:08 Robyn Pacheco on [facility] CONSULT TO OSTOMY CARE NURSE 2019-12-13 08:52:18 Robyn Pacheco [facility] POC GLUCOSE 2019-12-13 08:06:00 Jimenez Carr [facility] POC GLUCOSE 2019-12-13 04:37:00 Jimenez Carr [facility] HC COMPLETE BLD COUNT W/AUTO DIFF 2019-12-13 03:00:00 Franklin Carr [facility] COMPREHENSIVE METABOLIC PANEL 2019-12-13 03:00:00 Jimenez Carr ESTIMATED GFR 2019-12-13 03:00:00 Jimenez Carr [facility] POC GLUCOSE 2019-12-13 00:33:00 Jimenez Carr Met [facility] POC GLUCOSE 2019-12-12 20:43:00 Jimenez Carr Met [facility] POC GLUCOSE 2019-12-12 15:58:00 Jimenez Carr Met [facility]ist POC GLUCOSE 2019-12-12 13:04:00 Jimenez Carr Met [facility]ist POC GLUCOSE 2019-12-12 09:12:00 Jimenez Carr Met [facility]ist POC GLUCOSE 2019-12-12 07:26:00 Jimenez Carr Met [facility] POC GLUCOSE 2019-12-12 04:57:00 Jimenez Carr [facility] COMPREHENSIVE METABOLIC PANEL 2019-12-12 03:07:00 Jimenez Carr ESTIMATED GFR 2019-12-12 03:07:00 Jimenez Carr [facility] HC COMPLETE BLD COUNT W/AUTO DIFF 2019-12-12 02:20:00 Franklin Carrist POC GLUCOSE 2019-12-12 00:37:00 Jimenez Carr [facility] POC GLUCOSE 2019-12-11 20:40:00 Jimenez Carr Met [facility]ist POC GLUCOSE 2019-12-11 16:52:00 Jimenez Carr Met [facility]ist POC GLUCOSE 2019-12-11 12:31:00 Jimenez Carr Met [facility] POC GLUCOSE 2019-12-11 08:47:00 Jimenez Carr [facility] ARTERIAL BLOOD GAS 2019-12-11 06:30:00 Mika Posey ethodist POC GLUCOSE 2019-12-11 04:46:00 Jimenez Carr [facility] HC COMPLETE BLD COUNT W/AUTO DIFF 2019-12-11 03:00:00 Franklin Carr COMPREHENSIVE METABOLIC PANEL 2019-12-11 03:00:00 Jimenez Carr [facility] PREALBUMIN LEVEL 2019-12-11 03:00:00 Jimenez Carr Me [facility]odist PROTHROMBIN TIME WITH INR 2019-12-11 03:00:00 [place] Chyna F jordyn Hanks PARTIAL THROMBOPLASTIN TIME (PTT) 2019-12-11 03:00:00 Oyewole, A desola Roxanna Hanks ESTIMATED GFR 2019-12-11 03:00:00 Jimenez Carr [facility] POC GLUCOSE 2019-12-11 00:59:00 Jimenez Carr Met [facility] POC GLUCOSE 2019-12-10 21:04:00 Jimenez Carr Met [facility] POC GLUCOSE 2019-12-10 16:59:00 Jimenez Carr [facility] XR CHEST 1 VW PORTABLE 2019-12-10 13:15:04 Junior Robyn Dre on [facility] POC GLUCOSE 2019-12-10 11:40:00 Jimenez Carr [facility] POC GLUCOSE 2019-12-10 07:53:00 Jimenez Carr [facility] POC GLUCOSE 2019-12-10 04:43:00 Jimenez Carr [facility] COMPREHENSIVE METABOLIC PANEL 2019-12-10 03:30:00 Oyewole, Odetteso la Roxanna Lima [facility] ESTIMATED GFR 2019-12-10 03:30:00 Luke Sparks Meth odist PROTHROMBIN TIME WITH INR 2019-12-10 03:00:00 [place], Chyna F olnakia Lima [facility] PARTIAL THROMBOPLASTIN TIME (PTT) 2019-12-10 03:00:00 Oyewole, Nguyen desola Roxanna Lima [facility] ARTERIAL BLOOD GAS 2019-12-10 03:00:00 Oyewole, Chyna Roxanna Lima [facility] HC COMPLETE BLD COUNT W/AUTO DIFF 2019-12-10 03:00:00 Jose Carrillo [facility] POC GLUCOSE 2019-12-10 00:39:00 Jimenez Carr [facility] POC GLUCOSE 2019-12-09 21:16:00 Jimenez Carr [facility] POC GLUCOSE 2019-12-09 16:33:00 Jimenez Carr [facility] HC COMPLETE BLD COUNT W/AUTO DIFF 2019-12-09 16:24:00 Oyewole, A desola Roxanna Clarence [facility] POC GLUCOSE 2019-12-09 13:50:00 Jimenez Carr [facility] CT CHEST WO CONTRAST 2019-12-09 10:55:[address] SOFT TISSUE NECK WO CONTRAST 2019-12-09 10:54:53 BioManjinder padilla [facility] POC GLUCOSE 2019-12-09 08:34:00 Jimenez Carr [facility] POC GLUCOSE 2019-12-09 04:57:00 Jimenez Carr [facility] BASIC METABOLIC PANEL 2019-12-09 03:55:00 Josiah Rdz HC COMPLETE BLD COUNT W/AUTO DIFF 2019-12-09 03:55:00 Josiah Alvarez MAGNESIUM LEVEL 2019-12-09 03:55:00 Josiah Rdz PHOSPHORUS LEVEL 2019-12-09 03:55:00 Josiah Rdzto n [facility] PARTIAL THROMBOPLASTIN TIME (PTT) 2019-12-09 03:55:00 Kevin Méndez PROTHROMBIN TIME WITH INR 2019-12-09 03:55:00 Kevin Méndez ESTIMATED GFR 2019-12-09 03:55:00 Luke Sparks odist ARTERIAL BLOOD GAS 2019-12-09 03:55:00 Luke Sparks ethodist POC GLUCOSE 2019-12-09 01:20:00 Jimenez Carr [facility] ARTERIAL BLOOD GAS 2019-12-08 23:10:00 Carter Rueda [facility] XR CHEST 1 VW PORTABLE 2019-12-08 21:31:13 Carter Rueda [facility] POC GLUCOSE 2019-12-08 21:02:00 Jimenez Carr [facility] ARTERIAL BLOOD GAS 2019-12-08 20:15:00 Morris Moss [facility] POC GLUCOSE 2019-12-08 16:31:00 Jimenez Carr [facility] US DUPLEX VENOUS LOWER EXTREMITY BILATERAL 2019-12-08 14:45:00 W Na mo Clarence [facility] POC GLUCOSE 2019-12-08 12:38:00 Jimenez Carr [facility] POC GLUCOSE 2019-12-08 08:40:00 Jimenez Carr [facility] XR CHEST 1 VW PORTABLE 2019-12-08 06:04:01 Josiah Rdz [facility] POC GLUCOSE 2019-12-08 04:09:00 Jimenez Carr [facility] HC COMPLETE BLD COUNT W/AUTO DIFF 2019-12-08 03:35:00 Josiah Alvarez MAGNESIUM LEVEL 2019-12-08 03:35:00 Josiah Rdz PHOSPHORUS LEVEL 2019-12-08 03:35:00 Josiah Rdz ESTIMATED GFR 2019-12-08 03:35:00 Luke Sparks odakira COMPREHENSIVE METABOLIC PANEL 2019-12-08 03:35:00 Luke Sparks POC GLUCOSE 2019-12-08 00:21:00 Jimenez Carr hodakira URINE CULTURE 2019-12-08 00:03:00 Carter Rueda BLOOD CULTURE, AEROBIC & ANAEROBIC 2019 22:00:00 Carter Monten[place] BLOOD CULTURE, AEROBIC & ANAEROBIC 2019 21:30:00 Carter [place] URINALYSIS SCREEN AND MICROSCOPY, WITH REFLEX TO CULTURE 21:30:00 Carter Rueda XR CHEST 1 VW PORTABLE 2019 21:25:14 Josiah Rdz ARTERIAL BLOOD GAS 2019 21:20:00 Josiah Rdz BASIC METABOLIC PANEL 2019 21:20:00 Josiah Rdz HC COMPLETE BLD COUNT W/AUTO DIFF 2019 21:20:00 Josiah Alvarez PHOSPHORUS LEVEL 2019 21:20:00 Josiah Rdz MAGNESIUM LEVEL 2019 21:20:00 Josiah Rdz PROTHROMBIN TIME WITH INR 2019 21:20:00 Carter Rueda IONIZED CALCIUM, ARTERIAL 2019 21:20:00 Luke Sparks ESTIMATED GFR 2019 21:20:00 Luke Sparks LACTIC ACID LEVEL 2019 21:20:00 Luke Sparks Nm thodist POC GLUCOSE 2019 21:20:00 Jimenez Carr Met hodist ECG 12-LEAD 2019 20:54:58 RuedaCarter [employer] SODIUM LEVEL, SYRINGE 2019 19:39:00 Jimenez Carr on [employer] ARTERIAL BLOOD GAS, CORRECTED 2019 19:39:00 Jimenez Carr [employer] HEMOGLOBIN, SYRINGE 2019 19:39:00 Jimenez Carr [employer] POTASSIUM, SYRINGE 2019 19:39:00 Jimenez Carr [employer] GLUCOSE LEVEL, SYRINGE 2019 19:39:00 Jimenez Carr [employer] IONIZED CALCIUM, ARTERIAL 2019 19:39:00 Jimenez Carr [employer] HEMATOCRIT 2019 19:39:00 Jimenez Carr Met hodist LACTIC ACID, SYRINGE 2019 19:39:00 Jimenez Carr [employer] PROTHROMBIN TIME WITH INR 2019 19:39:00 Jimenez Carr PLATELET COUNT 2019 19:39:00 Jimenez Carr Met hodist FIBRINOGEN 2019 19:39:00 Jimenez Carr Met hodist ARTERIAL BLOOD GAS, CORRECTED 2019 18:16:00 Jimenez Carrist HEMOGLOBIN, SYRINGE 2019 18:16:00 Jimenez Carr POTASSIUM, SYRINGE 2019 18:16:00 Jimenez Carrist SODIUM LEVEL, SYRINGE 2019 18:16:00 Jimenez Carr on [employer] IONIZED CALCIUM, ARTERIAL 2019 18:16:00 Jimenez Carr [employer] GLUCOSE LEVEL, SYRINGE 2019 18:16:00 Jimenez Carr [employer] CO AN ELECTIVE ENDOTRACHEAL AIRWAY 2019 17:55:27 Marjan Garza [employer] ARTERIAL LINE 2019 17:52:07 Marjan Mcguire [employer] ARTERIAL BLOOD GAS, CORRECTED 2019 16:13:00 Jimenez Carr [employer] SODIUM LEVEL, SYRINGE 2019 16:13:00 Jimenez Carr on [employer] POTASSIUM, SYRINGE 2019 16:13:00 Jimenez Carr [employer] IONIZED CALCIUM, ARTERIAL 2019 16:13:00 Jimenez Carr [employer] HEMOGLOBIN, SYRINGE 2019 16:13:00 Jimenez Carr [employer] GLUCOSE LEVEL, SYRINGE 2019 16:13:00 Jimenez Carr [employer] FIBRINOGEN 2019 13:56:00 Jimenez Carr Met hodist PLATELET COUNT 2019 13:56:00 Jimenez Carr Met hodist PROTHROMBIN TIME WITH INR 2019 13:56:00 Jimenez Carr [employer] HEMOGLOBIN & HEMATOCRIT 2019 13:56:00 Jimenez Carr stoneha [employer] ARTERIAL BLOOD GAS, CORRECTED 2019 13:01:00 Jimenez Carr [employer] SODIUM LEVEL, SYRINGE 2019 13:01:00 Jimenez Carr on [employer] POTASSIUM, SYRINGE 2019 13:01:00 Jimenez Carr [employer] HEMOGLOBIN, SYRINGE 2019 13:01:00 Jimenez Carr [employer] GLUCOSE LEVEL, SYRINGE 2019 13:01:00 Jimenez Carr [employer] IONIZED CALCIUM, ARTERIAL 2019 13:01:00 Jimenez Carr [employer] TRANSFUSE RED BLOOD CELLS 2019 11:48:18 Anna Hale [employer] GLUCOSE LEVEL, SYRINGE 2019 11:30:00 Jimenez Carr [employer] IONIZED CALCIUM, ARTERIAL 2019 11:30:00 Jimenez Carr [employer] HEMOGLOBIN, SYRINGE 2019 11:30:00 Jimenez Carr [employer] POTASSIUM, SYRINGE 2019 11:30:00 Jimenez Carr [employer] SODIUM LEVEL, SYRINGE 2019 11:30:00 Jimenez Carr on [employer] ARTERIAL BLOOD GAS, CORRECTED 2019 11:30:00 Jimenez Carr TRANSFUSE RED BLOOD CELLS 2019 10:25:17 Anna Hale ARTERIAL BLOOD GAS, CORRECTED 2019 10:03:00 Jimenez Carr SODIUM LEVEL, SYRINGE 2019 10:03:00 Jimenez Carr on [facility] POTASSIUM, SYRINGE 2019 10:03:00 Jimenez Carr [facility] HEMOGLOBIN, SYRINGE 2019 10:03:00 Jimenez Carr IONIZED CALCIUM, ARTERIAL 2019 10:03:00 Jimenze Carr GLUCOSE LEVEL, SYRINGE 2019 10:03:00 Jimenez Carr [facility] ANAEROBIC CULTURE 2019 09:11:00 Jimenez Carr [facility] AEROBIC CULTURE 2019 09:11:00 Jimenez Carr [facility] AFB CULTURE 2019 09:11:00 Jimenez Carr [facility] FUNGUS CULTURE 2019 09:11:00 Jimenez Carr [facility] [employer] STAIN 2019 09:11:00 Jimenez Carr [facility] FUNGUS SMEAR 2019 09:11:00 Jimenez Carr [facility] CYTOLOGY (NON-GYNECOLOGICAL) REQUEST 2019 09:11:00 Han Carr SURGICAL PATHOLOGY REQUEST 2019 09:00:00 Jimenez Carr ARTERIAL LINE 2019 08:36:42 Anna Hale [facility] CO AN ELECTIVE ENDOTRACHEAL AIRWAY 2019 08:35:38 Anna Hale TYPE AND SCREEN 2019 02:30:00 Robyn Pacheco Meth [facility] PARTIAL THROMBOPLASTIN TIME (PTT) 2019 02:30:00 Robyn Pacheco BASIC METABOLIC PANEL 2019 02:30:00 Josiah Rdz HC COMPLETE BLD COUNT W/AUTO DIFF 2019 02:30:00 Josiah Alvarez MAGNESIUM LEVEL 2019 02:30:00 Josiah Rdz PHOSPHORUS LEVEL 2019 02:30:00 Josiah Rdz [place] [facility] ESTIMATED GFR 2019 02:30:00 Luek Sparks [facility] SMEAR REVIEW 2019 02:30:00 Luke Sparks [facility] PREPARE RBC 2019 02:30:00 Robyn Pacheco PREPARE FRESH FROZEN PLASMA 2019 02:30:00 Robyn Pacheco POC GLUCOSE 2019-12-06 21:12:00 Jimenez Carr [facility] POC GLUCOSE 2019-12-06 17:28:00 Jimenez Carr [facility] HC COMPLETE BLD COUNT W/AUTO DIFF 2019-12-06 15:20:00 Franklin Carr SMEAR REVIEW 2019-12-06 15:20:00 Jimenez Carr [facility] COVID-19 QUALITATIVE PCR 2019-12-06 15:08:00 Jimenez Carr COMPREHENSIVE METABOLIC PANEL 2019-12-06 14:48:00 Jimenez Carr PREALBUMIN LEVEL 2019-12-06 14:48:00 Jimenez Carr [facility] T4, FREE 2019-12-06 14:48:00 Jimenez Carr [facility] THYROID STIMULATING HORMONE 2019-12-06 14:48:00 Jimenez Carr ESTIMATED GFR 2019-12-06 14:48:00 Jimenez Carr [facility] PROTHROMBIN TIME WITH INR 2019-12-06 14:20:00 Jimenez Carr IR GASTROSTOMY CATHETER EVAL/EXCHANGE 2019-11-26 14:04:55 Lindsey Hernandez POC GLUCOSE 2019-11-05 19:48:00 Luke Sparks Meth [facility] POC GLUCOSE 2019-11-05 15:27:00 Luke Sparks XR PICC CHEST PORTABLE 2019-11-05 14:11:39 Luke Sparks on [facility] HC CVL PICC INSERT 5 YRS OR > W/RS&I AND IMG GUID 2019-11-05 12:48:37 Scarlett Weldon HC CATH DUAL LUMEN PICC # [id number] 0261-08-14 12:48:37 Nguyen Weldon POC GLUCOSE 2019-11-05 11:47:00 Luke Sparks Meth [facility] POC GLUCOSE 2019-11-05 07:43:00 Luke Sparks [facility] PREALBUMIN LEVEL 2019-11-05 07:19:00 Connor Navarro [facility] ALBUMIN LEVEL 2019-11-05 07:19:00 Connor Navarro [facility] POC GLUCOSE 2019-11-05 03:26:00 Luke Sparks Meth [facility] XR CHEST 1 VW PORTABLE 2019-11-05 02:43:00 Vesta Stubbs [facility] HC COMPLETE BLD COUNT W/AUTO DIFF 2019-11-05 00:30:00 Jose Millard [facility] BASIC METABOLIC PANEL 2019-11-05 00:30:00 Krystle Landrum MAGNESIUM LEVEL 2019-11-05 00:30:00 Krystle Landrum [facility] PHOSPHORUS LEVEL 2019-11-05 00:30:00 Krystle Landrum [facility] IONIZED CALCIUM 2019-11-05 00:30:00 Vesta Stubbs odist ESTIMATED GFR 2019-11-05 00:30:00 Vesta Stubbs odist SMEAR REVIEW 2019-11-05 00:30:00 Vesta Stubbs odist POC GLUCOSE 2019-11-05 00:14:00 Luke Sparks Meth [facility] POC GLUCOSE 2019-11-04 20:28:00 Luke Sparks Meth [facility] POC GLUCOSE 2019-11-04 15:49:00 Luke Sparks [facility] MIDLINE INSERTION ATTEMPT - UNSUCCESSFUL 2019-11-04 15:38:33 Scarlett Gordon US GUIDED VASCULAR ACCESS 2019-11-04 15:36:01 Scarlett Weldon Clarence Hanks HC CATH DUAL LUMEN PICC # [id number] [id number] 15:36:01 Shiraz Nguyen mayorga Clarence [facility] POC GLUCOSE 2019-11-04 12:18:00 Luke Sparks Meth [facility] POC GLUCOSE 2019-11-04 07:41:00 Luke Sparks Meth [facility] XR CHEST 1 VW PORTABLE 2019-11-04 06:31:00 DoVesta on [facility] POC GLUCOSE 2019-11-04 03:48:00 Luke Sparks [facility] HC COMPLETE BLD COUNT W/AUTO DIFF 2019-11-04 00:41:00 Jose Millard [facility] BASIC METABOLIC PANEL 2019-11-04 00:41:00 Krystle Landrum MAGNESIUM LEVEL 2019-11-04 00:41:00 Krystle Landrum [facility] PHOSPHORUS LEVEL 2019-11-04 00:41:00 Krystle Landrum IONIZED CALCIUM 2019-11-04 00:41:00 Do, Vesta Mendez odist TYPE AND SCREEN 2019-11-04 00:41:00 DoVesta odist ESTIMATED GFR 2019-11-04 00:41:00 DoVesta SMEAR REVIEW 2019-11-04 00:41:00 DoVesta Meth odist HEPATIC FUNCTION PANEL 2019-11-04 00:41:00 DoVesta on [facility] POC GLUCOSE 2019-11-03 23:46:00 Luke Sparks Meth [facility] POC GLUCOSE 2019-11-03 19:35:00 Luke Sparks Meth [facility] POC GLUCOSE 2019-11-03 16:01:00 Luke Sparks Meth [facility] ARTERIAL BLOOD GAS 2019-11-03 13:26:00 Fuentes Lares [facility] POC GLUCOSE 2019-11-03 11:31:00 Luke Sparks Meth [facility] POC GLUCOSE 2019-11-03 07:30:00 Luke Sparks Meth [facility] XR CHEST 1 VW PORTABLE 2019-11-03 06:09:00 Jose Millard [place] [facility] POC GLUCOSE 2019-11-03 03:24:00 Luke Sparks Meth [facility] THYROID STIMULATING HORMONE 2019-11-03 01:08:00 Geva, Jose Young [place] [facility] T4, FREE 2019-11-03 01:08:00 Geva, Jose Obregonjere [place] [facility] BASIC METABOLIC PANEL 2019-11-03 01:08:00 Geva, Jose Erickson on [facility] MAGNESIUM LEVEL 2019-11-03 01:08:00 Geva, Jose Obregonjere [place] [facility] PHOSPHORUS LEVEL 2019-11-03 01:08:00 Geva, Jose Obregonjere [place] [facility] ESTIMATED GFR 2019-11-03 01:08:00 Gebuddy, Jose Hector [place] [facility] HC COMPLETE BLD COUNT W/AUTO DIFF 2019-11-03 00:00:00 Gebuddy, Jose [place] [facility] SMEAR REVIEW 2019-11-03 00:00:00 Gebuddy, Jose Hector [place] [facility] POC GLUCOSE 2019-11-02 23:44:00 JonathanveranguyenLuke Meth odist POC GLUCOSE 2019-11-02 20:31:00 Jonathanveranguyen Luke Clarence Meth odist POC GLUCOSE 2019-11-02 15:45:00 JonathanveranguyenLuke Meth odist MAGNESIUM LEVEL 2019-11-02 14:55:00 Chip Lundberg ethodist PHOSPHORUS LEVEL 2019-11-02 14:55:00 Chip Lundberg [facility] POTASSIUM LEVEL 2019-11-02 14:55:00 Chip Lundberg ethodist POC GLUCOSE 2019-11-02 11:49:00 Jonathanveranguyen Luke Clarence Meth odist POC GLUCOSE 2019-11-02 07:45:00 Jonathantraci Luke Clarence Meth odist XR CHEST 1 VW PORTABLE 2019-11-02 07:03:08 Vesta Stubbs on [facility] POC GLUCOSE 2019-11-02 03:43:00 Jonathanveranguyen Luke Clarence Meth od[facility] BASIC METABOLIC PANEL 2019-11-02 00:30:00 Geva, Jose Erickson on [facility] MAGNESIUM LEVEL 2019-11-02 00:30:00 [facility] 2019-11-02 00:30:00 Geva, Jose Hector [place] [facility] HC COMPLETE BLD COUNT W/AUTO DIFF 2019-11-02 00:30:00 Freeman, Jose Hector [place] [facility] IONIZED CALCIUM 2019-11-02 00:30:00 DoVesta Clarence Meth odist ESTIMATED GFR 2019-11-02 00:30:00 DoVesta Clarenec Meth odist POC GLUCOSE 2019-11-01 23:45:00 ChiveraaLuke L[place] Meth odist POC GLUCOSE 2019-11-01 20:07:00 ChiveraaLuke Meth odist POC GLUCOSE 2019-11-01 16:45:00 ChiveraaLuke [place] Meth [facility] TRANSFUSE RED BLOOD CELLS 2019-11-01 15:55:21 Elijah Jenkins CO AN ELECTIVE SURGICAL AIRWAY 2019-11-01 14:55:05 Elijah Jenkins INSERTION, GASTROSTOMY TUBE, LAPAROSCOPIC 2019-11-01 14:14:00 Chidi Parisi [facility] POC GLUCOSE 2019-11-01 11:47:00 ChiveraLuke kramer [place] [facility] POC GLUCOSE 2019-11-01 08:17:00 ChiveraLuke kramer [place] [facility] XR CHEST 1 VW PORTABLE 2019-11-01 05:26:52 Gebuddy, Jose [place] [facility] POC GLUCOSE 2019-11-01 03:57:00 ChiveraLuke kramer Meth od[facility] BASIC METABOLIC PANEL 2019-11-01 01:52:00 Gebuddy, Jose Erickson on [facility] MAGNESIUM LEVEL 2019-11-01 01:52:00 Gebuddy, Jose Hector [place] [facility] PHOSPHORUS LEVEL 2019-11-01 01:52:00 Geva, Jose Hector [place] [facility] ESTIMATED GFR 2019-11-01 01:52:00 Chitraci Luke Clarence Meth odist PARTIAL THROMBOPLASTIN TIME (PTT) 2019-11-01 01:30:00 Tegan Lechuga HC COMPLETE BLD COUNT W/AUTO DIFF 2019-11-01 01:30:00 Gavi Landrum PROTHROMBIN TIME WITH INR 2019-11-01 01:30:00 Catherine Lechuga SMEAR REVIEW 2019-11-01 01:30:00 Luke Sparks Meth od[facility] POC GLUCOSE 2019-10-31 23:52:00 Luke Sparks Meth odist POC GLUCOSE 2019-10-31 19:57:00 Luke Sparks Meth odist POC GLUCOSE 2019-10-31 16:16:00 Luke Sparks Meth odist POTASSIUM LEVEL 2019-10-31 15:55:00 Isabella Tavares Meth odist MAGNESIUM LEVEL 2019-10-31 15:55:00 Isabella Tavares Meth odist POC GLUCOSE 2019-10-31 11:36:00 Luke Sparks Meth odist POC GLUCOSE 2019-10-31 08:19:00 Luke Sparks Meth odist HEMOGLOBIN & HEMATOCRIT 2019-10-31 07:42:00 Cristinadona Isabella workman [facility] POTASSIUM LEVEL 2019-10-31 07:09:00 Isabella Tavares Meth odist MAGNESIUM LEVEL 2019-10-31 07:09:00 Isabella Tavares Meth odist TRANSFUSE RED BLOOD CELLS 2019-10-31 06:59:30 Areli Berumen XR CHEST 1 VW PORTABLE 2019-10-31 05:36:07 GevaJose TYPE AND SCREEN 2019-10-31 04:00:00 Areli Berumen M ethodist POC GLUCOSE 2019-10-31 04:00:00 Luke Sparks Meth odist PREPARE RBC 2019-10-31 04:00:00 Shira Woods HC COMPLETE BLD COUNT W/AUTO DIFF 2019-10-31 02:10:00 Gavi Landrum BASIC METABOLIC PANEL 2019-10-31 02:10:00 Krystle Landrum MAGNESIUM LEVEL 2019-10-31 02:10:00 Krystle Landrum PHOSPHORUS LEVEL 2019-10-31 02:10:00 Krystle Landrum PARTIAL THROMBOPLASTIN TIME (PTT) 2019-10-31 02:10:00 Tegan Lechuga ESTIMATED GFR 2019-10-31 02:10:00 ChiharLuke kramer Meth odist SMEAR REVIEW 2019-10-31 02:10:00 Luke Sparks Meth odist POC GLUCOSE 2019-10-31 00:47:00 Luke Sparks Meth odist POC GLUCOSE 2019-10-30 23:43:00 Luke Sparks Meth odist POC GLUCOSE 2019-10-30 19:57:00 Luke Sparks Meth odist POC GLUCOSE 2019-10-30 15:45:00 Luke Sparks Meth odist PARTIAL THROMBOPLASTIN TIME (PTT) 2019-10-30 12:00:00 Imtiaznguyen Adam [place] [facility] POC GLUCOSE 2019-10-30 11:36:00 Luke Sparks Meth odist POC GLUCOSE 2019-10-30 07:33:00 Luke Sparks odist COVID-19 QUALITATIVE PCR 2019-10-30 07:12:00 Krystle Landrum PARTIAL THROMBOPLASTIN TIME (PTT) 2019-10-30 05:59:00 Ha Jean ma XR CHEST 1 VW PORTABLE 2019-10-30 04:42:00 Areli Berumen POC GLUCOSE 2019-10-30 04:06:00 Luke Sparks odist HC COMPLETE BLD COUNT W/AUTO DIFF 2019-10-30 02:06:00 Gavi Landrum BASIC METABOLIC PANEL 2019-10-30 02:06:00 Krystle Landrum MAGNESIUM LEVEL 2019-10-30 02:06:00 Krystle Landrum PHOSPHORUS LEVEL 2019-10-30 02:06:00 Krystle Landrum ESTIMATED GFR 2019-10-30 02:06:00 JonathanveraLuke kramer Meth [facility] SMEAR REVIEW 2019-10-30 02:06:00 JonathanveraLuke kramer Meth odist POC GLUCOSE 2019-10-29 23:35:00 Luke Sparks Meth odist PARTIAL THROMBOPLASTIN TIME (PTT) 2019-10-29 23:00:00 Tegan Lechugaist POC GLUCOSE 2019-10-29 20:18:00 JonathanveraLuke kramer Meth odist PARTIAL THROMBOPLASTIN TIME (PTT) 2019-10-29 16:10:00 Yoko Drew [facility] MAGNESIUM LEVEL 2019-10-29 16:00:00 Silvia Drew Meth odist PHOSPHORUS LEVEL 2019-10-29 16:00:00 Silvia Drew [facility] POTASSIUM LEVEL 2019-10-29 16:00:00 Silvia Drew Meth odist POC GLUCOSE 2019-10-29 15:52:00 Luke Sparks Meth odist POC GLUCOSE 2019-10-29 11:49:00 Luke Sparks Meth odist PARTIAL THROMBOPLASTIN TIME (PTT) 2019-10-29 08:40:00 Tegan Lechuga [facility] POC GLUCOSE 2019-10-29 07:46:00 [place] Luke Clarence Meth odist POC GLUCOSE 2019-10-29 04:29:00 [place] Luke Clarence Meth odist XR CHEST 1 VW PORTABLE 2019-10-29 04:09:00 Elham Fuentes ECG 12-LEAD 2019-10-29 03:36:45 Elham Fuentes on [facility] PARTIAL THROMBOPLASTIN TIME (PTT) 2019-10-29 01:45:00 Timmy Schilling HC COMPLETE BLD COUNT W/AUTO DIFF 2019-10-29 01:45:00 Gavi Landrum BASIC METABOLIC PANEL 2019-10-29 01:45:00 Krystle Landrumist MAGNESIUM LEVEL 2019-10-29 01:45:00 Krystle Landrum [facility] PHOSPHORUS LEVEL 2019-10-29 01:45:00 Krystle Landrum [facility] IONIZED CALCIUM 2019-10-29 01:45:00 Elham Fuentes on [facility] ESTIMATED GFR 2019-10-29 01:45:00 Elham Fuentes on [facility] SMEAR REVIEW 2019-10-29 01:45:00 Elham Fuentes on [facility] POC GLUCOSE 2019-10-28 23:33:00 Luke Sparks Meth odist POC GLUCOSE 2019-10-28 20:27:00 Luke Sparks Meth odist POC GLUCOSE 2019-10-28 16:22:00 Luke Sparks Meth odist POTASSIUM LEVEL 2019-10-28 14:56:00 Chip Lundberg Crista ethodist MAGNESIUM LEVEL 2019-10-28 14:56:00 Chip Lundberg Crista ethodist PHOSPHORUS LEVEL 2019-10-28 14:56:00 Chip Lundberg [facility] POC GLUCOSE 2019-10-28 12:09:00 Luke Sparks Meth od[facility] COVID-19 QUALITATIVE PCR 2019-10-28 09:40:00 Renetta Hartman [facility] POC GLUCOSE 2019-10-28 07:37:00 Luke Sparks Meth od[facility] ECG 12-LEAD 2019-10-28 05:21:30 Elham Fuentes on [facility] XR CHEST 1 VW PORTABLE 2019-10-28 04:04:00 Elham Fuentesist POC GLUCOSE 2019-10-28 03:48:00 Luke Sparks Meth odist BASIC METABOLIC PANEL 2019-10-28 02:23:00 Krystle Landrumist MAGNESIUM LEVEL 2019-10-28 02:23:00 Krystle Landrum [facility] PHOSPHORUS LEVEL 2019-10-28 02:23:00 Krystle Landrum [facility] IONIZED CALCIUM 2019-10-28 02:23:00 Elham Fuentes on [facility] ESTIMATED GFR 2019-10-28 02:23:00 Luke Sparks Meth odist HC COMPLETE BLD COUNT W/AUTO DIFF 2019-10-28 02:05:00 Gavi Landrum PARTIAL THROMBOPLASTIN TIME (PTT) 2019-10-28 02:05:00 Tegan Lechuga [facility] SMEAR REVIEW 2019-10-28 02:05:00 Luke Sparks Meth odist POC GLUCOSE 2019-10-27 23:47:00 Luke Sparks Meth odist POC GLUCOSE 2019-10-27 19:49:00 Luke Sparks Meth odist POC GLUCOSE 2019-10-27 15:35:00 Luke Sparks Meth odist SODIUM LEVEL 2019-10-27 15:24:00 Arnaud Fuentes Blackmon uston [facility] POTASSIUM LEVEL 2019-10-27 15:24:00 Fuentes Lares [facility] POC GLUCOSE 2019-10-27 11:32:00 JonathanveraLuke kramer Clarence Meth odist POC GLUCOSE 2019-10-27 07:30:00 JonathanveranguyenLuke Meth odist XR CHEST 1 VW PORTABLE 2019-10-27 06:50:00 Geva, Jose Hector [place] [facility] POC GLUCOSE 2019-10-27 04:01:00 Luke Sparks Meth odist HC COMPLETE BLD COUNT W/AUTO DIFF 2019-10-27 02:20:00 Gavi Landrum BASIC METABOLIC PANEL 2019-10-27 02:20:00 Krystle Landrum MAGNESIUM LEVEL 2019-10-27 02:20:00 Krystle Landrum [facility] PHOSPHORUS LEVEL 2019-10-27 02:20:00 Krystle Landrum stoneha [facility] PARTIAL THROMBOPLASTIN TIME (PTT) 2019-10-27 02:20:00 Timmy Schilling ESTIMATED GFR 2019-10-27 02:20:00 Luke Sparks Meth odist SMEAR REVIEW 2019-10-27 02:20:00 Luke Sparks Meth odist POC GLUCOSE 2019-10-27 00:19:00 Luke Sparks Meth odist POC GLUCOSE 2019-10-26 19:37:00 ImtiaznguyenLuke Meth odist POC GLUCOSE 2019-10-26 16:09:00 Luke Sparks Meth odist OSMOLALITY, URINE 2019-10-26 15:51:00 Fuentes Lares [facility] POC GLUCOSE 2019-10-26 11:39:00 ImtiaznguyenLuke Meth odist POC GLUCOSE 2019-10-26 07:45:00 Luke Sparks Meth odist XR CHEST 1 VW PORTABLE 2019-10-26 06:22:00 Geva, Jose Hector [place] [facility] POC GLUCOSE 2019-10-26 04:53:00 Luke Sparks Meth odist PARTIAL THROMBOPLASTIN TIME (PTT) 2019-10-26 02:00:00 Timmy Schilling [facility] T4, FREE 2019-10-26 02:00:00 Elvi Butler [facility] HC COMPLETE BLD COUNT W/AUTO DIFF 2019-10-26 02:00:00 Gavi Landrum BASIC METABOLIC PANEL 2019-10-26 02:00:00 Krystle Landrum MAGNESIUM LEVEL 2019-10-26 02:00:00 Krystle Landrum [facility] PHOSPHORUS LEVEL 2019-10-26 02:00:00 Krystle Landrum Kianna ston [facility] ERYTHROPOIETIN 2019-10-26 02:00:00 Hang Li [facility] FERRITIN LEVEL 2019-10-26 02:00:00 Hang Li Nm thodist TOTAL IRON BINDING CAPACITY 2019-10-26 02:00:00 Hang Li TYPE AND SCREEN 2019-10-26 02:00:00 Areli Berumen ethodist ESTIMATED GFR 2019-10-26 02:00:00 Hang Li Nm thodist SMEAR REVIEW 2019-10-26 02:00:00 Hang Li Nm thodist POC GLUCOSE 2019-10-25 23:31:00 Luke Sparks Meth odist POC GLUCOSE 2019-10-25 20:51:00 Luke Sparks Meth odist US CHEST 2019-10-25 18:00:00 Renetta Hartman [facility]odist POC GLUCOSE 2019-10-25 15:52:00 Luke Sparks Meth odist POC GLUCOSE 2019-10-25 12:26:00 Luke Sparks Meth odist ALBUMIN LEVEL 2019-10-25 10:30:00 Jose Millard [facility] PREALBUMIN LEVEL 2019-10-25 10:30:00 Jose Millard [facility] POC GLUCOSE 2019-10-25 07:33:00 Luke Sparks Meth odist XR CHEST 1 VW PORTABLE 2019-10-25 06:36:40 Tarsha Gray [facility] ECG 12-LEAD 2019-10-25 05:29:02 Tarsha Gray [facility] POC GLUCOSE 2019-10-25 04:22:00 Luke Sparks Meth odist IMMUNOGLOBULIN E 2019-10-25 02:12:00 Brayden Couch [facility] BASIC METABOLIC PANEL 2019-10-25 02:00:00 Tarsha Gray on [facility] HC COMPLETE BLD COUNT W/AUTO DIFF 2019-10-25 02:00:00 Nash Gray [facility] IONIZED CALCIUM 2019-10-25 02:00:00 Tarsha Gray [facility] MAGNESIUM LEVEL 2019-10-25 02:00:00 Tarsha Gray [facility] PARTIAL THROMBOPLASTIN TIME (PTT) 2019-10-25 02:00:00 Nash Gray [facility] PHOSPHORUS LEVEL 2019-10-25 02:00:00 Tarsha Gray [facility] SEDIMENTATION RATE 2019-10-25 02:00:00 Brayden Couch [facility] ESTIMATED GFR 2019-10-25 02:00:00 Tarsha Gray [facility] SMEAR REVIEW 2019-10-25 02:00:00 Tarsha Gray [facility] PERIPHERAL SMEAR 2019-10-25 02:00:00 Tarsha Gray [facility] POC GLUCOSE 2019-10-24 23:52:00 Luke Sparks Meth odist POC GLUCOSE 2019-10-24 19:49:00 Luke Sparks Meth odist CORTISOL, 60 MINUTES 2019-10-24 17:08:00 Brayden Couch [facility] POC GLUCOSE 2019-10-24 16:03:00 Luke Sparks Meth odist ADRENOCORTICOTROPIC HORMONE 2019-10-24 13:30:00 Marielle Sousa [facility] CORTISOL LEVEL, RANDOM 2019-10-24 12:03:00 Marielle Sousa on [facility] POC GLUCOSE 2019-10-24 11:29:00 Luke Sparks Meth odist POC GLUCOSE 2019-10-24 07:36:00 Luke Sparks Meth odist XR CHEST 1 VW PORTABLE 2019-10-24 06:05:53 Tarsha Gray [facility] POC GLUCOSE 2019-10-24 04:15:00 Luke Sparks Meth odist BASIC METABOLIC PANEL 2019-10-24 04:00:00 Tarsha Gray on [facility] HC COMPLETE BLD COUNT W/AUTO DIFF 2019-10-24 04:00:00 Nash Gray [facility] MAGNESIUM LEVEL 2019-10-24 04:00:00 Tarsha Gray [facility] PHOSPHORUS LEVEL 2019-10-24 04:00:00 Tarsha Gray [facility] ESTIMATED GFR 2019-10-24 04:00:00 Tarsha Gray [facility] SMEAR REVIEW 2019-10-24 04:00:00 Tarsha Gray [facility] THYROID PEROXIDASE ANTIBODY 2019-10-24 04:00:00 Brayden Couch [facility] ECG 12-LEAD 2019-10-24 03:12:16 Tarsha Gray [facility] POC GLUCOSE 2019-10-24 00:00:00 Luke Sparks Meth odist PARTIAL THROMBOPLASTIN TIME (PTT) 2019-10-23 22:30:00 Tegan Lechuga [facility] POC GLUCOSE 2019-10-23 20:18:00 Luke Sparks Meth odist US DUPLEX VENOUS UPPER EXTREMITY RIGHT 2019-10-23 16:10:00 Brayden Adams [facility] POC GLUCOSE 2019-10-23 15:56:00 Luke Sparks Meth odist PARTIAL THROMBOPLASTIN TIME (PTT) 2019-10-23 15:50:00 Adam Sparks [facility] POC GLUCOSE 2019-10-23 11:46:00 Luke Sparks Meth odist PARTIAL THROMBOPLASTIN TIME (PTT) 2019-10-23 07:56:00 Timmy Schilling [facility] POC GLUCOSE 2019-10-23 07:36:00 Luke Sparks Meth odist XR CHEST 1 VW PORTABLE 2019-10-23 06:48:46 Tarsha Gray [facility] ECG 12-LEAD 2019-10-23 04:52:21 Marina Tarsha Lima [facility] POC GLUCOSE 2019-10-23 04:17:00 Luke pSarks Meth odist BASIC METABOLIC PANEL 2019-10-23 01:04:00 Marina Tarsha Erickson on [facility] HC COMPLETE BLD COUNT W/AUTO DIFF 2019-10-23 01:04:00 Nash Gray [facility] IONIZED CALCIUM 2019-10-23 01:04:00 Tarsha Gray [facility] MAGNESIUM LEVEL 2019-10-23 01:04:00 Lance Grayia Clarence Met hodist PARTIAL THROMBOPLASTIN TIME (PTT) 2019-10-23 01:04:00 Nash Gray [facility] PHOSPHORUS LEVEL 2019-10-23 01:04:00 Tarsha Gray Me thodist ESTIMATED GFR 2019-10-23 01:04:00 Tarsha Gray Met [facility] SMEAR REVIEW 2019-10-23 01:04:00 Tarsha Gray Met [facility] POC GLUCOSE 2019-10-23 00:07:00 Luke Sparks Meth odist POC GLUCOSE 2019-10-22 20:27:00 Luke Sparks odist OVA & PARASITES, CONCENTRATED EXAMINATION 2019-10-22 18:20:0 0 Brayden Couch OVA & PARASITES, TRICHROME STAIN 2019-10-22 18:20:00 Brayden Tao OVA & PARASITES, GROSS EXAMINATION 2019-10-22 18:20:00 Brayden Stephen ala OVA & PARASITES, DIRECT EXAMINATION 2019-10-22 18:20:00 Brayden Lopez PERIPHERAL SMEAR 2019-10-22 18:20:00 Brayden Couch T4, FREE 2019-10-22 16:26:00 Silvia Drew Meth odist T3 2019-10-22 16:26:00 Silvia Drew Meth odist POC GLUCOSE 2019-10-22 15:49:00 Luke Sparks Meth odist POC GLUCOSE 2019-10-22 11:46:00 Luke Sparks Meth odist PARTIAL THROMBOPLASTIN TIME (PTT) 2019-10-22 09:29:00 Timmy Schilling THYROID STIMULATING HORMONE 2019-10-22 09:29:00 Silvia Drew CORTISOL LEVEL, RANDOM 2019-10-22 09:29:00 Silvia Drew on [facility] POC GLUCOSE 2019-10-22 07:22:00 Luke Sparks Meth odakira XR CHEST 1 VW PORTABLE 2019-10-22 06:34:42 Jose Millardhe Hayley ton [facility] POC GLUCOSE 2019-10-22 04:02:00 Luke Sparks Meth odist PARTIAL THROMBOPLASTIN TIME (PTT) 2019-10-22 00:25:00 Adam Sparks HC COMPLETE BLD COUNT W/AUTO DIFF 2019-10-22 00:25:00 Do, Peg Hanks BASIC METABOLIC PANEL 2019-10-22 00:25:00 Do, Vesta Kiser n [facility] [facility] ARTERIAL BLOOD GAS 2019-10-22 00:25:00 DoVesta ethodist MAGNESIUM LEVEL 2019-10-22 00:25:00 DoVesta odist PHOSPHORUS LEVEL 2019-10-22 00:25:00 DoVesta hodakira TYPE AND SCREEN 2019-10-22 00:25:00 DoVesta odist ESTIMATED GFR 2019-10-22 00:25:00 Do, Vesta Mendez odist IONIZED CALCIUM, ARTERIAL 2019-10-22 00:25:00 DoVesta SMEAR REVIEW 2019-10-22 00:25:00 DoVesta Meth odist POC GLUCOSE 2019-10-21 23:52:00 Luke Sparks Meth odist HEMOGLOBIN & HEMATOCRIT 2019-10-21 19:54:00 Coty Saleh [facility] [facility] POC GLUCOSE 2019-10-21 19:54:00 Luke Sparks Meth odist CLOSTRIDIUM DIFFICILE TOXIN 2019-10-21 17:45:00 Danny Pretty [employer] [facility] IONIZED CALCIUM 2019-10-21 17:15:00 Coty Saleh ethodist BASIC METABOLIC PANEL 2019-10-21 17:15:00 Coty Saleh ESTIMATED GFR 2019-10-21 17:15:00 Coty Saleh Crista ethodist MAGNESIUM LEVEL 2019-10-21 17:15:00 Coty Saleh Crista ethodist POC GLUCOSE 2019-10-21 16:12:00 Luke Sparks MISCELLANEOUS REFERRAL TEST 2019-10-21 13:24:00 Fuentes Lares POC GLUCOSE 2019-10-21 12:08:00 Luke Sparks odakira POC GLUCOSE 2019-10-21 08:09:00 Luke Sparks odakira LACTIC ACID LEVEL 2019-10-21 06:54:00 Do, Vesta Casillas thjerry BETA HYDROXYBUTYRATE 2019-10-21 06:54:00 Do, Vesta Hanks XR CHEST 1 VW PORTABLE 2019-10-21 06:15:00 Do, Vesta Hanks TRANSFUSE RED BLOOD CELLS 2019-10-21 05:47:15 Do, Vesta Hanks POC GLUCOSE 2019-10-21 03:49:00 Luke Sparks PARTIAL THROMBOPLASTIN TIME (PTT) 2019-10-21 02:19:00 Adam Sparks HC COMPLETE BLD COUNT W/AUTO DIFF 2019-10-21 02:19:00 Do, Peg Hanks BASIC METABOLIC PANEL 2019-10-21 02:19:00 Do, Vesta Hanks MAGNESIUM LEVEL 2019-10-21 02:19:00 DoVesta PHOSPHORUS LEVEL 2019-10-21 02:19:00 Do, Vesta butler ARTERIAL BLOOD GAS 2019-10-21 02:19:00 Do, Vesta parker IONIZED CALCIUM, ARTERIAL 2019-10-21 02:19:00 Do, Vesta Hanks ESTIMATED GFR 2019-10-21 02:19:00 Do, Vesta edwards SMEAR REVIEW 2019-10-21 02:19:00 Vesta Stubbs odist POC GLUCOSE 2019-10-20 23:55:00 ImtiazLuke kramer [place] Meth odist POC GLUCOSE 2019-10-20 19:36:00 ChiveraLuke kramer Meth odist POC GLUCOSE 2019-10-20 16:39:00 JonathanveraLuke kramer Meth odist POC GLUCOSE 2019-10-20 12:05:00 ChiLuke aviles Meth odist POC GLUCOSE 2019-10-20 07:50:00 Luke Sparks Meth odist ECG 12-LEAD 2019-10-20 07:30:21 Dinh Lee XR CHEST 1 VW PORTABLE 2019-10-20 06:25:00 Dinh Lee [facility] [facility] POC GLUCOSE 2019-10-20 04:21:00 SalinasLuke Clarence Mendez odist BASIC METABOLIC PANEL 2019-10-20 00:48:00 Dinh Lee HC COMPLETE BLD COUNT W/AUTO DIFF 2019-10-20 00:48:00 JesusDinh claros [employer] [facility] MAGNESIUM LEVEL 2019-10-20 00:48:00 JesusDinh claros [facility] PHOSPHORUS LEVEL 2019-10-20 00:48:00 Dinh Lee [employer] [facility] HEPATIC FUNCTION PANEL 2019-10-20 00:48:00 Jaxon Blair ARTERIAL BLOOD GAS 2019-10-20 00:48:00 DoVesta ethodist PARTIAL THROMBOPLASTIN TIME (PTT) 2019-10-20 00:48:00 Adam Sparks ESTIMATED GFR 2019-10-20 00:48:00 DoVesta IONIZED CALCIUM, ARTERIAL 2019-10-20 00:48:00 Vesta Stubbs SMEAR REVIEW 2019-10-20 00:48:00 Vesta Stubbs odist POC GLUCOSE 2019-10-20 00:04:00 [place] Luke Lima Meth odist PARTIAL THROMBOPLASTIN TIME (PTT) 2019-10-19 22:14:00 Tegan Lechuga [facility] [facility] POC GLUCOSE 2019-10-19 19:38:00 Luke Sparks Meth odist NM HEPATOBILIARY 2019-10-19 18:02:01 Evelia Coleman hodist XR CHEST 1 VW PORTABLE 2019-10-19 15:40:00 Chip Lundberg [employer] [facility] HC CVL NON-TUNNELED INSERT 5YRS OR > 2019-10-19 15:28:58 Priyank Orta [employer] [facility] POC GLUCOSE 2019-10-19 11:52:00 ChivearaLuke [facility] PARTIAL THROMBOPLASTIN TIME (PTT) 2019-10-19 11:15:00 Aadm Sparks [facility] POC GLUCOSE 2019-10-19 11:13:00 Luke Sparks [facility] US HEPATIC 2019-10-19 10:35:19 Evelia Coleman Meth od[facility] POC GLUCOSE 2019-10-19 08:31:00 ChiveraaLuke Meth odist HEPATIC FUNCTION PANEL 2019-10-19 08:12:00 Evelia Coleman on [facility] POC GLUCOSE 2019-10-19 04:18:00 Luke Sparks Meth odist BASIC METABOLIC PANEL 2019-10-19 04:10:00 Dinh Lee [facility] HC COMPLETE BLD COUNT W/AUTO DIFF 2019-10-19 04:10:00 Dinh Lee MAGNESIUM LEVEL 2019-10-19 04:10:00 Dinh Lee PHOSPHORUS LEVEL 2019-10-19 04:10:00 Dinh Lee [facility] PARTIAL THROMBOPLASTIN TIME (PTT) 2019-10-19 04:10:00 Adam Sparks ESTIMATED GFR 2019-10-19 04:10:00 Luke Sparks [facility] ARTERIAL BLOOD GAS 2019-10-19 04:10:00 Areli Berumen [facility] SMEAR REVIEW 2019-10-19 04:10:00 Luke Sparks Meth odist XR CHEST 1 VW PORTABLE 2019-10-19 01:41:00 JesusDinh claros [facility] POC GLUCOSE 2019-10-19 00:20:00 Luke Sparks Meth od[facility] POC GLUCOSE 2019-10-18 20:14:00 Luke Sparks [facility] ARTERIAL BLOOD GAS 2019-10-18 17:56:00 Chip Lundberg [facility] BASIC METABOLIC PANEL 2019-10-18 17:55:00 Chip Lundberg [facility] ESTIMATED GFR 2019-10-18 17:55:00 Chip Lundberg ethodist MAGNESIUM LEVEL 2019-10-18 17:55:00 Chip Lundberg ethodist PHOSPHORUS LEVEL 2019-10-18 17:55:00 Chip Lundberg [facility] POC GLUCOSE 2019-10-18 17:15:00 Luke Sparks Meth odist POC GLUCOSE 2019-10-18 12:22:00 Luke Sparks Meth odist XR CHEST 1 VW PORTABLE 2019-10-18 09:55:00 Robyn Pacheco on [facility] CONSULT TO OSTOMY CARE NURSE 2019-10-18 08:14:51 Garry De La Rosa [facility] POC GLUCOSE 2019-10-18 08:13:00 Luke Sparks Meth odist XR CHEST 1 VW PORTABLE 2019-10-18 06:25:34 Dinh Lee [facility] POC GLUCOSE 2019-10-18 03:46:00 Luke Sparks Meth odist PARTIAL THROMBOPLASTIN TIME (PTT) 2019-10-18 03:00:00 Adam Sparks [facility] BASIC METABOLIC PANEL 2019-10-18 01:31:00 Dinh Lee [facility] HC COMPLETE BLD COUNT W/AUTO DIFF 2019-10-18 01:31:00 Dinh Lee [facility] MAGNESIUM LEVEL 2019-10-18 01:31:00 Dinh Lee [facility] PHOSPHORUS LEVEL 2019-10-18 01:31:00 Dinh Lee [facility] ARTERIAL BLOOD GAS 2019-10-18 01:31:00 Areli Berumen [facility] TYPE AND SCREEN 2019-10-18 01:31:00 Areli Berumen ethodist ESTIMATED GFR 2019-10-18 01:31:00 ImtiazLuke kramer [facility] SMEAR REVIEW 2019-10-18 01:31:00 Luke Sparks [facility] PREPARE RBC 2019-10-18 01:31:00 Do Vesta Nguyen [place] [facility] POC GLUCOSE 2019-10-18 01:10:00 Luke Sparks Clarence [facility] PARTIAL THROMBOPLASTIN TIME (PTT) 2019-10-17 20:57:00 Tegan Lechuga [facility] POTASSIUM, SYRINGE 2019-10-17 20:57:00 Areli Berumen n [facility] POC GLUCOSE 2019-10-17 20:31:00 Imtiaznguyen Luke Mendez odist SPUTUM CULTURE 2019-10-17 20:29:00 Nile Boucher GRAM STAIN 2019-10-17 20:29:00 Nile Boucher POC GLUCOSE 2019-10-17 15:50:00 Imtiaznguyen Luke Mendez odakira HC COMPLETE BLD COUNT W/AUTO DIFF 2019-10-17 13:53:00 Camron Moss BASIC METABOLIC PANEL 2019-10-17 13:53:00 Morris Moss on [facility] ESTIMATED GFR 2019-10-17 13:53:00 Morris Moss Met [facility]odist MAGNESIUM LEVEL 2019-10-17 13:53:00 Morris Moss [facility] PHOSPHORUS LEVEL 2019-10-17 13:53:00 Morris Moss Me [facility]od[facility] SMEAR REVIEW 2019-10-17 13:53:00 Morris Moss [facility] BLOOD SMEAR CONSULT 2019-10-17 13:53:00 Morris Moss MANUAL DIFFERENTIAL 2019-10-17 13:53:00 Morris Moss POC GLUCOSE 2019-10-17 11:56:00 Luke Sparks odakira WOUND VAC PLACEMENT 2019-10-17 11:44:38 Dinh Lee PARTIAL THROMBOPLASTIN TIME (PTT) 2019-10-17 09:40:00 Adam Sparks AEROBIC CULTURE 2019-10-17 09:32:00 Cesar Bryant odakira GRAM STAIN 2019-10-17 09:32:00 Cesar Bryant Clarence Mendez odakira ANAEROBIC CULTURE 2019-10-17 09:32:00 Cesar Bryant Nm thodist POC GLUCOSE 2019-10-17 07:40:00 Luke Sparks odist TRANSFUSE RED BLOOD CELLS 2019-10-17 06:53:40 Areli Berumen XR CHEST 1 VW PORTABLE 2019-10-17 05:17:31 Areli Berumen [place]on [facility] POC GLUCOSE 2019-10-17 04:18:00 Luke Sparks odist COMPREHENSIVE METABOLIC PANEL 2019-10-17 03:37:00 Luke Sparks MAGNESIUM LEVEL 2019-10-17 03:37:00 Luke Sparks odakira CREATINE KINASE, TOTAL (CPK) 2019-10-17 03:37:00 Luke Sparks ESTIMATED GFR 2019-10-17 03:37:00 Luke Sparks odakira BILIRUBIN DIRECT 2019-10-17 03:37:00 Luke Sparks hodakira CBC HEMOGRAM 2019-10-17 03:20:00 Luke Sparks odist MAGNESIUM LEVEL 2019-10-17 02:29:00 Isabella Tavares HEPATIC FUNCTION PANEL 2019-10-17 02:29:00 Nile Boucher CREATINE KINASE, TOTAL (CPK) 2019-10-17 02:29:00 Nile Boucher BASIC METABOLIC PANEL 2019-10-17 02:29:00 Catherine Lechuga PARTIAL THROMBOPLASTIN TIME (PTT) 2019-10-17 02:13:00 Tegan Lechuga CBC HEMOGRAM 2019-10-17 02:13:00 Areli Berumen ethodist ARTERIAL BLOOD GAS 2019-10-17 02:13:00 Areli Berumen [facility] POC GLUCOSE 2019-10-17 00:27:00 Luke Sparks odist POC GLUCOSE 2019-10-16 20:13:[address] HEAD WO CONTRAST 2019-10-16 17:50:[address] [facility] [address] CHEST WO CONTRAST ABDOMEN WO CONTRAST PELVIS WO CONTRAST 2019-10-16 17:50:07 Dinh Lee [facility] POC GLUCOSE 2019-10-16 15:39:00 Luke Sparks Meth odist POC GLUCOSE 2019-10-16 11:36:00 Luke Sparks Meth odist POC GLUCOSE 2019-10-16 07:32:00 Luke Sparks Meth odist XR CHEST 1 VW PORTABLE 2019-10-16 05:16:47 Robyn Pacheco on [facility] POC GLUCOSE 2019-10-16 04:33:00 Luke Sparks Meth odist PARTIAL THROMBOPLASTIN TIME (PTT) 2019-10-16 02:00:00 Tegan Lechuga CBC HEMOGRAM 2019-10-16 02:00:00 Latmarquez, Areli [place] M ethodist BASIC METABOLIC PANEL 2019-10-16 02:00:00 Ata, Areli Kianna ston [facility] MAGNESIUM LEVEL 2019-10-16 02:00:00 Latmarquez, Areli [place] M ethodist ARTERIAL BLOOD GAS 2019-10-16 02:00:00 Latmarquez, Areli Hardyto n [facility] ESTIMATED GFR 2019-10-16 02:00:00 Latmarquez, Areli [place] M [facility] DIGOXIN LEVEL 2019-10-16 02:00:00 Latmarquez, Areli [place] M ethodist PARTIAL THROMBOPLASTIN TIME (PTT) 2019-10-15 20:20:00 Tegan Lechuga POC GLUCOSE 2019-10-15 20:12:00 [place] Luke Clarence Mendez odist COVID-19 QUALITATIVE PCR 2019-10-15 17:13:00 Dinh Lee BLOOD CULTURE, AEROBIC & ANAEROBIC 2019-10-15 16:45:00 Dinh Raphael URINE CULTURE 2019-10-15 16:30:00 SalinasLuke Lima Meth odist URINALYSIS SCREEN AND MICROSCOPY, WITH REFLEX TO CULTURE 202 16:30:00 Dinh Lee POC GLUCOSE 2019-10-15 15:40:00 ImtiazLuke kramer Meth odist BLOOD CULTURE, AEROBIC & ANAEROBIC 2019-10-15 15:30:00 Rebekah hughes Dinh Li [place] [facility] WOUND VAC PLACEMENT 2019-10-15 13:47:45 Jesus Dinh Gee jessica Clarence [facility] POC GLUCOSE 2019-10-15 11:42:00 SalinasLuke Meth odist XR CHEST 1 VW PORTABLE 2019-10-15 10:40:00 Robyn Pacheco on [facility] POTASSIUM LEVEL 2019-10-15 08:30:00 ChitraciLuke Meth odist DIGOXIN LEVEL 2019-10-15 08:30:00 ImtiazLuke kramer [place] [facility] POC GLUCOSE 2019-10-15 07:35:00 SalinasLuke [place] Meth odist XR CHEST 1 VW PORTABLE 2019-10-15 06:22:00 Dong Roy on [facility] ECG 12-LEAD 2019-10-15 05:11:03 Dong Roy odist BASIC METABOLIC PANEL 2019-10-15 00:30:00 Dong Roy [facility] PHOSPHORUS LEVEL 2019-10-15 00:30:00 Dong Roy hodist ESTIMATED GFR 2019-10-15 00:30:00 Dong Roy odist MAGNESIUM LEVEL 2019-10-15 00:30:00 Dong Roy odist ARTERIAL BLOOD GAS 2019-10-15 00:10:00 Dong Royodi HC COMPLETE BLD COUNT W/AUTO DIFF 2019-10-15 00:10:00 Gavi Roy PROTHROMBIN TIME WITH INR 2019-10-15 00:10:00 Dong Roy PARTIAL THROMBOPLASTIN TIME (PTT) 2019-10-15 00:10:00 Gavi Roy IONIZED CALCIUM, ARTERIAL 2019-10-15 00:10:00 Dong Royist POC GLUCOSE 2019-10-14 23:27:00 Luke Sparks Meth odist POC GLUCOSE 2019-10-14 20:26:00 Luke Sparks Meth odist POTASSIUM LEVEL 2019-10-14 17:45:00 Chip Lundberg ethodist POC GLUCOSE 2019-10-14 16:21:00 Jonathanveranguyen Luke [place] Meth odist POC GLUCOSE 2019-10-14 11:49:00 Imtiaznguyen Luke [place] Meth od[facility] POTASSIUM LEVEL 2019-10-14 10:40:00 Chip Lundberg ethodist MAGNESIUM LEVEL 2019-10-14 10:40:00 Chip Lundberg ethodist PHOSPHORUS LEVEL 2019-10-14 10:40:00 Chip Lundberg [facility] IONIZED CALCIUM 2019-10-14 10:40:00 Chip Lundberg ethodist XR CHEST 1 VW PORTABLE 2019-10-14 10:00:00 Robyn Pacheco on [facility] POC GLUCOSE 2019-10-14 07:57:00 [place] Luke [place] Meth od[facility] POC GLUCOSE 2019-10-14 03:46:00 Sailnas Luke [place] [facility] ECG 12-LEAD 2019-10-14 03:16:11 Dong Roy odist XR CHEST 1 VW PORTABLE 2019-10-14 02:21:00 Dong Roy on [facility] MAGNESIUM LEVEL 2019-10-14 00:35:00 Chip Lundberg ethodist BASIC METABOLIC PANEL 2019-10-14 00:35:00 Dong Roy n [facility] PHOSPHORUS LEVEL 2019-10-14 00:35:00 Dong Roy hodist ESTIMATED GFR 2019-10-14 00:35:00 Chip Lundberg ethodist ARTERIAL BLOOD GAS 2019-10-14 00:15:00 Dong Royst HC COMPLETE BLD COUNT W/AUTO DIFF 2019-10-14 00:15:00 Gavi Roy IONIZED CALCIUM, ARTERIAL 2019-10-14 00:15:00 Chip Lundberg TYPE AND SCREEN 2019-10-14 00:13:00 Dong Roy odist PREPARE RBC 2019-10-14 00:13:00 Areli Berumen ethodist POC GLUCOSE 2019-10-13 23:55:00 Luke Sparks Meth odist POC GLUCOSE 2019-10-13 19:40:00 Luke Sparks Meth odist THYROID STIMULATING HORMONE 2019-10-13 18:15:00 Chip Lundberg [facility] POTASSIUM LEVEL 2019-10-13 18:15:00 Chip Lundberg ethodist MAGNESIUM LEVEL 2019-10-13 18:15:00 Chip Lundberg ethodist PHOSPHORUS LEVEL 2019-10-13 18:15:00 Chip Lundberg [facility] POC GLUCOSE 2019-10-13 16:03:00 Luke Sparks [place] [facility] POC GLUCOSE 2019-10-13 11:48:00 Jonathanveranguyen Luke Mendez odist XR CHEST 1 VW PORTABLE 2019-10-13 10:40:00 Luke Sparks on [facility] MAGNESIUM LEVEL 2019-10-13 10:29:00 Chip Lundberg ethodist PHOSPHORUS LEVEL 2019-10-13 10:29:00 Chip Lundberg IONIZED CALCIUM 2019-10-13 10:29:00 Chip Lundberg ethodist POTASSIUM LEVEL 2019-10-13 10:29:00 Chip Lundberg ethodist TRACHEOSTOMY 2019-10-13 07:59:00 Bri Corral [facility] POC GLUCOSE 2019-10-13 07:31:00 JonathanveraLuke kramer Clarence Mendez odist XR CHEST 1 VW PORTABLE 2019-10-13 05:24:00 Dong Roy [facility] ECG 12-LEAD 2019-10-13 04:44:14 Dong Roy odist POC GLUCOSE 2019-10-13 03:53:00 [place] Luke [place] Meth odist MAGNESIUM LEVEL 2019-10-13 01:34:00 AnushaIsabella Clarence Meth odist BASIC METABOLIC PANEL 2019-10-13 01:31:00 Dong Roy ESTIMATED GFR 2019-10-13 01:31:00 Dong Roy odist PHOSPHORUS LEVEL 2019-10-13 01:31:00 Dong Roy ARTERIAL BLOOD GAS 2019-10-13 01:23:00 RoyDong HC COMPLETE BLD COUNT W/AUTO DIFF 2019-10-13 01:23:00 Gavi Roy PROTHROMBIN TIME WITH INR 2019-10-13 01:23:00 Dong Roy PARTIAL THROMBOPLASTIN TIME (PTT) 2019-10-13 01:23:00 Gavi Roy IONIZED CALCIUM, ARTERIAL 2019-10-13 01:23:00 Dong Roy POC GLUCOSE 2019-10-12 23:58:00 Luke Sparks Meth odist POC GLUCOSE 2019-10-12 19:44:00 Luke Sparks Meth odist POTASSIUM LEVEL 2019-10-12 16:01:00 Isabella Tavares Meth odist MAGNESIUM LEVEL 2019-10-12 16:01:00 Isabella Tavares Meth odist PHOSPHORUS LEVEL 2019-10-12 16:01:00 Isabella Tavares Met hodist IONIZED CALCIUM 2019-10-12 16:01:00 Isabella Tavares Meth odist POC GLUCOSE 2019-10-12 15:45:00 Luke Sparks Meth odist POC GLUCOSE 2019-10-12 11:57:00 Luke Sparks Meth odist CONSULT TO OSTOMY CARE NURSE 2019-10-12 08:59:26 Catherine Lechuga [facility] POC GLUCOSE 2019-10-12 07:50:00 Luke Sparks Meth odist POC GLUCOSE 2019-10-12 03:54:00 Luke Sparks Meth odist XR CHEST 1 VW PORTABLE 2019-10-12 01:46:00 Areli Berumen BASIC METABOLIC PANEL 2019-10-12 00:48:00 Areli Berumenist MAGNESIUM LEVEL 2019-10-12 00:48:00 Areli Berumen ethodist ESTIMATED GFR 2019-10-12 00:48:00 Areli Berumen ethodist POC GLUCOSE 2019-10-12 00:23:00 Luke Sparks Meth odist CBC HEMOGRAM 2019-10-12 00:15:00 Areli Berumen ethodist POC GLUCOSE 2019-10-11 19:49:00 ImtiazLuke kramer Meth odist POC GLUCOSE 2019-10-11 17:00:00 Luke Sparks Meth odist COVID-19 QUALITATIVE PCR 2019-10-11 16:13:00 Bri Corral ston [facility] POC GLUCOSE 2019-10-11 11:29:00 Luke Sparks Meth odist POC GLUCOSE 2019-10-11 07:43:00 JonathanLuke aviles Meth odist XR CHEST 1 VW PORTABLE 2019-10-11 05:47:24 Tarsha Gray [facility] ECG 12-LEAD 2019-10-11 05:15:05 Tarsha Gray Met hodist POC GLUCOSE 2019-10-11 03:59:00 [place] Luke Mendez odist BASIC METABOLIC PANEL 2019-10-11 00:52:00 Tarsha Gray [facility] HC COMPLETE BLD COUNT W/AUTO DIFF 2019-10-11 00:52:00 Nash Gray [facility] IONIZED CALCIUM 2019-10-11 00:52:00 Tarsha Gray Met hod[facility] MAGNESIUM LEVEL 2019-10-11 00:52:00 Tarsha Gray Met hodist PHOSPHORUS LEVEL 2019-10-11 00:52:00 Tarsha Gray Me thodist PROTHROMBIN TIME WITH INR 2019-10-11 00:52:00 Tarsha Gray [facility] ESTIMATED GFR 2019-10-11 00:52:00 Tarsha Gray Met hodist ARTERIAL BLOOD GAS 2019-10-11 00:52:00 Tarsha Gray [facility] POC GLUCOSE 2019-10-10 23:39:00 [place] Luke Mendez odist XR ABDOMEN 1 VW PORTABLE 2019-10-10 19:56:43 Tarsha Grayton [facility] POC GLUCOSE 2019-10-10 19:26:00 [place] Luke [place] Meth odist POC GLUCOSE 2019-10-10 15:42:00 SalinasLuke Clarence Meth odist CBC HEMOGRAM 2019-10-10 14:39:00 Coty Saleh ethodist POC GLUCOSE 2019-10-10 11:43:00 Luke Sparks Meth odist POC GLUCOSE 2019-10-10 07:23:00 Luke Sparks Meth odist XR CHEST 1 VW PORTABLE 2019-10-10 05:52:31 Tarsha Gray [facility] POC GLUCOSE 2019-10-10 04:00:00 Luke Sparks Meth odist ECG 12-LEAD 2019-10-10 03:21:15 Tarsha Gray Met [facility] BASIC METABOLIC PANEL 2019-10-10 01:20:00 Tarsha Gray on [facility] IONIZED CALCIUM 2019-10-10 01:20:00 Tarsha Gray Met hodist MAGNESIUM LEVEL 2019-10-10 01:20:00 Tarsha Gray Met hodist PHOSPHORUS LEVEL 2019-10-10 01:20:00 Tarsha Gray Me [facility]od[facility] ESTIMATED GFR 2019-10-10 01:20:00 Tarsha Gray Met hod[facility] CREATINE KINASE, TOTAL (CPK) 2019-10-10 01:20:00 Zac Gray HC COMPLETE BLD COUNT W/AUTO DIFF 2019-10-10 00:45:00 Nash Gray PROTHROMBIN TIME WITH INR 2019-10-10 00:45:00 Tarsha Gray [facility] TYPE AND SCREEN 2019-10-10 00:45:00 Tarsha Gray hodist ARTERIAL BLOOD GAS 2019-10-10 00:45:00 Tarsha Gray POC GLUCOSE 2019-10-10 00:06:00 Luke Sparks Meth odist POC GLUCOSE 2019-10-09 19:44:00 Luke Sparks Meth odist POC GLUCOSE 2019-10-09 16:56:00 Luke Sparks Meth odist HEMOGLOBIN & HEMATOCRIT 2019-10-09 15:11:00 Coty Saleh TRANSFUSE RED BLOOD CELLS 2019-10-09 14:51:51 Coty Salehist POC GLUCOSE 2019-10-09 12:28:00 Luke Sparks Meth odist POC GLUCOSE 2019-10-09 08:18:00 Luke Sparks Meth odist XR CHEST 1 VW PORTABLE 2019-10-09 06:24:37 Dong Roy on [facility] ECG 12-LEAD 2019-10-09 04:29:31 Dong Roy Meth odist POC GLUCOSE 2019-10-09 03:57:00 Luke Sparks Meth odist ARTERIAL BLOOD GAS 2019-10-09 02:05:00 Dong Roy HC COMPLETE BLD COUNT W/AUTO DIFF 2019-10-09 02:05:00 Gavi Roy [facility] BASIC METABOLIC PANEL 2019-10-09 02:05:00 Dong Roy n [facility] MAGNESIUM LEVEL 2019-10-09 02:05:00 Dong Roy odist PHOSPHORUS LEVEL 2019-10-09 02:05:00 Dong Roy hodakira PROTHROMBIN TIME WITH INR 2019-10-09 02:05:00 Dong Roy [facility] PARTIAL THROMBOPLASTIN TIME (PTT) 2019-10-09 02:05:00 Gavi Roy [facility] IONIZED CALCIUM, ARTERIAL 2019-10-09 02:05:00 Dong Roy [facility] ESTIMATED GFR 2019-10-09 02:05:00 Dong Roy Meth odist POC GLUCOSE 2019-10-08 23:55:00 Luke Sparks Meth odist POC GLUCOSE 2019-10-08 23:09:00 Luke Sparks Meth odist HEMOGLOBIN & HEMATOCRIT 2019-10-08 22:00:00 Renetta Hartman uston [facility] POC GLUCOSE 2019-10-08 21:59:00 Luke Sparks Meth odist POC GLUCOSE 2019-10-08 21:05:00 Luke Sparks Meth odist POC GLUCOSE 2019-10-08 19:55:00 Luke Sparks Meth odist ECG 12-LEAD 2019-10-08 19:29:35 Coty Saleh ethodist POC GLUCOSE 2019-10-08 18:48:00 JonathanveraLuke kramer Meth odist XR CHEST 1 VW PORTABLE 2019-10-08 18:31:03 Coty Saleh [facility] ARTERIAL BLOOD GAS 2019-10-08 18:20:00 Coty Saleh BASIC METABOLIC PANEL 2019-10-08 18:20:00 Coty Saleh CBC HEMOGRAM 2019-10-08 18:20:00 Coty Saleh ethodist MAGNESIUM LEVEL 2019-10-08 18:20:00 Coty Saleh ethodist PARTIAL THROMBOPLASTIN TIME (PTT) 2019-10-08 18:20:00 Adam Saleh PHOSPHORUS LEVEL 2019-10-08 18:20:00 Coty Saleh PROTHROMBIN TIME WITH INR 2019-10-08 18:20:00 Coty Saleh ESTIMATED GFR 2019-10-08 18:20:00 Coty Saleh ethodist IONIZED CALCIUM, ARTERIAL 2019-10-08 18:20:00 Coty Saleh TRANSFUSE RED BLOOD CELLS 2019-10-08 16:52:44 Nayeli Solo TRANSFUSE FRESH FROZEN PLASMA 2019-10-08 16:32:51 Froilan Diamond VENOUS BLOOD GAS, CORRECTED 2019-10-08 16:11:00 Luke Sparks SODIUM LEVEL, SYRINGE 2019-10-08 16:11:00 Luke Sparks O2 SATURATION, VENOUS 2019-10-08 16:11:00 Luke Sparks HEMOGLOBIN, SYRINGE 2019-10-08 16:11:00 Luke Sparks POTASSIUM, SYRINGE 2019-10-08 16:11:00 Luke Sparks ethodist GLUCOSE LEVEL, SYRINGE 2019-10-08 16:11:00 Luke Sparks IONIZED CALCIUM, VENOUS 2019-10-08 16:11:00 Luke Sparks ANAEROBIC CULTURE 2019-10-08 16:07:00 Luke Sparks Me thodist FUNGUS CULTURE 2019-10-08 16:07:00 Luke Sparks Meth odist AFB CULTURE 2019-10-08 16:07:00 Luke Sparks Meth odist AFB STAIN 2019-10-08 16:07:00 Luke Sparks odakira GRAM STAIN 2019-10-08 16:07:00 Luke Sparks odist TISSUE CULTURE 2019-10-08 16:07:00 Luke Sparks odist TRANSFUSE RED BLOOD CELLS 2019-10-08 15:38:15 Nayeli Solo Neymar cowartjacinta [facility] O2 SATURATION, VENOUS 2019-10-08 14:55:00 Luke Sparks [facility] SODIUM LEVEL, SYRINGE 2019-10-08 14:55:00 Luke Sparks [facility] VENOUS BLOOD GAS, CORRECTED 2019-10-08 14:55:00 Luke Sparks [facility] POTASSIUM, SYRINGE 2019-10-08 14:55:00 Luke Sparks ethodist HEMOGLOBIN, SYRINGE 2019-10-08 14:55:00 Luke Sparks GLUCOSE LEVEL, SYRINGE 2019-10-08 14:55:00 Luke Sparks [facility] IONIZED CALCIUM, VENOUS 2019-10-08 14:55:00 Luke Sparks [facility] TRANSFUSE RED BLOOD CELLS 2019-10-08 14:34:43 Dendeena Nayeli holman [facility] SODIUM LEVEL, SYRINGE 2019-10-08 14:19:00 Luke Sparks [facility] POTASSIUM, SYRINGE 2019-10-08 14:19:00 Luke Sparks M ethodist HEMOGLOBIN, SYRINGE 2019-10-08 14:19:00 Luke Sparks GLUCOSE LEVEL, SYRINGE 2019-10-08 14:19:00 Luke Sparks [facility] IONIZED CALCIUM, VENOUS 2019-10-08 14:19:00 Luke Sparks [facility] VENOUS BLOOD GAS, CORRECTED 2019-10-08 14:19:00 Luke Sparks SURGICAL PATHOLOGY REQUEST 2019-10-08 13:59:00 Luke Sparks [facility] POTASSIUM, SYRINGE 2019-10-08 13:41:00 Luke Sparks M ethodist SODIUM LEVEL, SYRINGE 2019-10-08 13:41:00 Luke Sparks [facility] GLUCOSE LEVEL, SYRINGE 2019-10-08 13:41:00 Luke Sparks on [facility] HEMOGLOBIN, SYRINGE 2019-10-08 13:41:00 Luke Sparks IONIZED CALCIUM, VENOUS 2019-10-08 13:41:00 Luke Sparks VENOUS BLOOD GAS, CORRECTED 2019-10-08 13:41:00 Luke Sparks PROTHROMBIN TIME WITH INR 2019-10-08 13:41:00 Luke Sparks [facility] FIBRINOGEN 2019-10-08 13:41:00 Luke Sparks Meth odist HEMATOCRIT 2019-10-08 13:41:00 Luke Sparks Meth odist PLATELET COUNT 2019-10-08 13:41:00 [place] Luke Mendez odist ANAEROBIC CULTURE 2019-10-08 13:25:00 Luke Sparks Me thodist FUNGUS CULTURE 2019-10-08 13:25:00 Luke Sparks odist AFB CULTURE 2019-10-08 13:25:00 Luke Sparks odist GRAM STAIN 2019-10-08 13:25:00 Luke Sparks odist AFB STAIN 2019-10-08 13:25:00 Luke Sparks odist TISSUE CULTURE 2019-10-08 13:25:00 Luke Sparks Meth odist ANESTHESIA INTUBATION 2019-10-08 13:07:39 Nayeli Solo ARTERIAL BLOOD GAS, CORRECTED 2019-10-08 12:57:00 Luke Sparks POTASSIUM, SYRINGE 2019-10-08 12:57:00 Luke Sparks ethodist SODIUM LEVEL, SYRINGE 2019-10-08 12:57:00 Luke Sparks [facility] HEMOGLOBIN, SYRINGE 2019-10-08 12:57:00 Luke Sparks IONIZED CALCIUM, ARTERIAL 2019-10-08 12:57:00 Luke Sparks [facility] GLUCOSE LEVEL, SYRINGE 2019-10-08 12:57:00 Luke Sparks on [facility] POC GLUCOSE 2019-10-08 09:30:00 Luke Sparks Meth odist POC GLUCOSE 2019-10-08 04:29:00 Luke Sparks Meth odakira XR CHEST 1 VW PORTABLE 2019-10-08 03:59:00 Areli Berumen [facility] ARTERIAL BLOOD GAS 2019-10-08 02:08:00 Areli Berumen [facility] HC COMPLETE BLD COUNT W/AUTO DIFF 2019-10-08 02:00:00 Robyn Pacheco BASIC METABOLIC PANEL 2019-10-08 02:00:00 Robyn Pacheco [facility] MAGNESIUM LEVEL 2019-10-08 02:00:00 Robyn Pacheco Meth odist PHOSPHORUS LEVEL 2019-10-08 02:00:00 Robyn Pacheco Met hodist PARTIAL THROMBOPLASTIN TIME (PTT) 2019-10-08 02:00:00 Robyn Pacheco PROTHROMBIN TIME WITH INR 2019-10-08 02:00:00 Robyn Pacheco ESTIMATED GFR 2019-10-08 02:00:00 Robyn Pacheco Meth odist POC GLUCOSE 2019-10-08 00:22:00 Luke Sparks Meth od[facility] PARTIAL THROMBOPLASTIN TIME (PTT) 2019-10-07 21:25:00 Evelia Coleman [facility] POC GLUCOSE 2019-10-07 21:04:00 Luke Sparks [facility] POC GLUCOSE 2019-10-07 17:16:00 Luke Sparks [facility] POC GLUCOSE 2019-10-07 11:45:00 Luke Sparks [facility] PARTIAL THROMBOPLASTIN TIME (PTT) 2019-10-07 08:40:00 Adam Sparks [facility] POC GLUCOSE 2019-10-07 08:29:00 Luke Sparks [facility] XR CHEST 1 VW PORTABLE 2019-10-07 03:58:00 Areli Berumen [facility] POC GLUCOSE 2019-10-07 03:53:00 Luke Sparks [facility] POC GLUCOSE 2019-10-07 02:01:00 Luke Sparks [facility] BASIC METABOLIC PANEL 2019-10-07 00:41:00 Areli Berumen [facility] ARTERIAL BLOOD GAS 2019-10-07 00:41:00 Areli Berumen [facility] CBC HEMOGRAM 2019-10-07 00:41:00 Areli Berumen M ethodist MAGNESIUM LEVEL 2019-10-07 00:41:00 LatiffAreli ethodist ESTIMATED GFR 2019-10-07 00:41:00 LatAreli zayas ethodist PARTIAL THROMBOPLASTIN TIME (PTT) 2019-10-07 00:41:00 Cassidy Berumen [facility] POC GLUCOSE 2019-10-06 20:00:00 Luke Sparks [facility] URINE CULTURE 2019-10-06 16:25:00 Fuentes Lares SODIUM LEVEL, URINE, RANDOM 2019-10-06 16:25:00 Fuentes Lares CREATININE LEVEL, URINE, RANDOM 2019-10-06 16:25:00 Alan Lares [facility] UREA NITROGEN, URINE, RANDOM 2019-10-06 16:25:00 Fuentes Lares URINALYSIS SCREEN AND MICROSCOPY, WITH REFLEX TO CULTURE 202 16:25:00 Fuentes Lares [facility] POC GLUCOSE 2019-10-06 15:35:00 Luke Sparks [facility] PARTIAL THROMBOPLASTIN TIME (PTT) 2019-10-06 15:10:00 Adam Sparks COVID-19 QUALITATIVE PCR 2019-10-06 14:00:00 Robyn Pacheco POC GLUCOSE 2019-10-06 11:36:00 Luke Sparks odakira US DUPLEX VENOUS UPPER EXTREMITY LEFT 2019-10-06 11:30:00 Dinh Birch [facility] US DUPLEX VENOUS LOWER EXTREMITY BILATERAL 2019-10-06 11:00: 00 Dinh Lee [place] [facility] CT CHEST WO CONTRAST 2019-10-06 10:15:08 Dinh Lee PARTIAL THROMBOPLASTIN TIME (PTT) 2019-10-06 08:20:00 Evelia Coleman [facility] POC GLUCOSE 2019-10-06 07:36:00 Luke Sparks [facility] ECG 12-LEAD 2019-10-06 05:29:31 Tolu Goldman Nm thodist XR CHEST 1 VW PORTABLE 2019-10-06 05:06:00 Jones Tolu Kushal Kianna Hanks ARTERIAL BLOOD GAS 2019-10-06 04:46:00 Tolu Goldman POC GLUCOSE 2019-10-06 04:03:00 [place] Luke Mendez odist IONIZED CALCIUM 2019-10-06 02:30:00 Ata Areli Epstein ethodist BASIC METABOLIC PANEL 2019-10-06 01:40:00 Areli Berumen [facility] MAGNESIUM LEVEL 2019-10-06 01:40:00 LatCassidy zayasnahum Epstein ethodist PHOSPHORUS LEVEL 2019-10-06 01:40:00 Areli Berumen ESTIMATED GFR 2019-10-06 01:40:00 Kevon Berumenvalemoisés [place] Crista ethodist TYPE AND SCREEN 2019-10-06 01:10:00 Kevon Berumenvalemoisés L[place] Crista ethodist PREPARE FRESH FROZEN PLASMA 2019-10-06 01:10:00 Antoinette Berumen ed PREPARE RBC 2019-10-06 01:10:00 Coty Saleh ethodist HC COMPLETE BLD COUNT W/AUTO DIFF 2019-10-06 01:00:00 Tolu Goldman POC GLUCOSE 2019-10-06 00:00:00 Luke Sparks odist PARTIAL THROMBOPLASTIN TIME (PTT) 2019-10-05 21:38:00 Ha Jean ma ARTERIAL BLOOD GAS 2019-10-05 21:38:00 Latiff, Areli Hardyto n [facility] HEMOGLOBIN, SYRINGE 2019-10-05 21:38:00 Latiff, Areli Hardyt on [facility] POTASSIUM, SYRINGE 2019-10-05 21:38:00 Latiff, Areli Hardyto n [facility] CHLORIDE LEVEL, SYRINGE 2019-10-05 21:38:00 Latiff, Areli rosadoston [facility] SODIUM LEVEL, SYRINGE 2019-10-05 21:38:00 Latiff, Areli Blackmonu ston [facility] POC GLUCOSE 2019-10-05 19:59:00 Luke Sparks Meth od[facility] PARTIAL THROMBOPLASTIN TIME (PTT) 2019-10-05 18:13:00 Tolu Goldman POC GLUCOSE 2019-10-05 17:54:00 Luke Sparks odist POC GLUCOSE 2019-10-05 17:04:00 Luke Sparks odist POC GLUCOSE 2019-10-05 16:27:00 Luke Sparks BLOOD CULTURE, AEROBIC & ANAEROBIC 2019-10-05 15:58:00 Jones Augustoagustin Hanks PROTHROMBIN TIME WITH INR 2019-10-05 15:38:00 Luke Sparks PARTIAL THROMBOPLASTIN TIME (PTT) 2019-10-05 15:38:00 Adam Sparks POC GLUCOSE 2019-10-05 15:14:00 Luke Sparks TTE LIMITED, WO CONTRAST, W DOPPLER ([id number]) 2019-10-05 14:56:23 Evelia Coleman XR CHEST 1 VW PORTABLE 2019-10-05 14:05:00 Tolu Goldman VANCOMYCIN LEVEL, RANDOM 2019-10-05 13:58:00 Brenda Jean BASIC METABOLIC PANEL 2019-10-05 13:58:00 Jones Tolu Fatima Hayley Hanks ESTIMATED GFR 2019-10-05 13:58:00 Tolu Goldman [place] thodist PARTIAL THROMBOPLASTIN TIME (PTT) 2019-10-05 13:58:00 Adam Sparks PROTHROMBIN TIME WITH INR 2019-10-05 13:58:00 Luke Sparks ARTERIAL BLOOD GAS 2019-10-05 13:55:00 Tolu Goldman HC COMPLETE BLD COUNT W/AUTO DIFF 2019-10-05 13:55:00 Tolu Goldman POC GLUCOSE 2019-10-05 13:48:00 Luke Sparks ARTERIAL BLOOD GAS, CORRECTED 2019-10-05 12:51:00 Luke Sparks HEMOGLOBIN, SYRINGE 2019-10-05 12:51:00 Luke Sparks IONIZED CALCIUM, ARTERIAL 2019-10-05 12:51:00 Luke Sparks POTASSIUM, SYRINGE 2019-10-05 12:51:00 Luke Sparks ethodist SODIUM LEVEL, SYRINGE 2019-10-05 12:51:00 Luke Sparks [facility] GLUCOSE LEVEL, SYRINGE 2019-10-05 12:51:00 Luke Sparks on [facility] OR [place] > 1 HOUR 2019-10-05 12:40:00 Evelia Coleman Meth odist ARTERIAL LINE 2019-10-05 12:35:11 Roselyn Edward Irvin [place] [facility] GLUCOSE LEVEL, SYRINGE 2019-10-05 12:34:00 Luke Sparks on [facility] IONIZED CALCIUM, ARTERIAL 2019-10-05 12:34:00 Luke Sparks [facility] HEMOGLOBIN, SYRINGE 2019-10-05 12:34:00 Luke Sparks [facility] POTASSIUM, SYRINGE 2019-10-05 12:34:00 Luke Sparks ethodist SODIUM LEVEL, SYRINGE 2019-10-05 12:34:00 Luke Sparks n [facility] ARTERIAL BLOOD GAS, CORRECTED 2019-10-05 12:34:00 uLke Sparks [facility] ACTIVATED CLOTTING TIME 2019-10-05 12:32:00 Luke Sparks [facility] GLUCOSE LEVEL, SYRINGE 2019-10-05 12:16:00 Luke Sparks on [facility] IONIZED CALCIUM, ARTERIAL 2019-10-05 12:16:00 Luke Sparks [facility] POTASSIUM, SYRINGE 2019-10-05 12:16:00 Luke Sparks ethodist HEMOGLOBIN, SYRINGE 2019-10-05 12:16:00 Luke Sparks [facility] SODIUM LEVEL, SYRINGE 2019-10-05 12:16:00 Luke Sparks n [facility] ARTERIAL BLOOD GAS, CORRECTED 2019-10-05 12:16:00 Luke Sparks [facility] ACTIVATED CLOTTING TIME 2019-10-05 12:15:00 Luke Sparks [facility] ARTERIAL BLOOD GAS, CORRECTED 2019-10-05 10:58:00 Luke Sparks [facility] SODIUM LEVEL, SYRINGE 2019-10-05 10:58:00 Luke Sparks n [facility] POTASSIUM, SYRINGE 2019-10-05 10:58:00 Luke Sparks ethodist IONIZED CALCIUM, ARTERIAL 2019-10-05 10:58:00 Luke Sparks HEMOGLOBIN, SYRINGE 2019-10-05 10:58:00 Luke Sparks GLUCOSE LEVEL, SYRINGE 2019-10-05 10:58:00 Luke Sparks on [facility] ARTERIAL BLOOD GAS, CORRECTED 2019-10-05 10:35:00 Luke Sparks SODIUM LEVEL, SYRINGE 2019-10-05 10:35:00 Luke Sparks POTASSIUM, SYRINGE 2019-10-05 10:35:00 Luke Sparks M ethodist HEMOGLOBIN, SYRINGE 2019-10-05 10:35:00 Luek Sparks IONIZED CALCIUM, ARTERIAL 2019-10-05 10:35:00 Luke Sparks LACTIC ACID, SYRINGE 2019-10-05 10:35:00 Luke Sparks GLUCOSE LEVEL, SYRINGE 2019-10-05 10:35:00 Luke Sparks on [facility] TRANSFUSE RED BLOOD CELLS 2019-10-05 09:18:03 Edward Dempsey XR CHEST 1 VW PORTABLE 2019-10-05 06:08:00 Areli Berumen POC GLUCOSE 2019-10-05 03:54:00 Luke Sparks PARTIAL THROMBOPLASTIN TIME (PTT) 2019-10-05 03:30:00 Robyn Pacheco PROTHROMBIN TIME WITH INR 2019-10-05 03:30:00 Robyn Pacheco HC COMPLETE BLD COUNT W/AUTO DIFF 2019-10-05 03:30:00 Robyn Pacheco BASIC METABOLIC PANEL 2019-10-05 03:30:00 Robyn Pacheco MAGNESIUM LEVEL 2019-10-05 03:30:00 Robyn Pacheco odakira PHOSPHORUS LEVEL 2019-10-05 03:30:00 Robyn Pacheco Met hodist TRIGLYCERIDES 2019-10-05 03:30:00 Brenda Jean Meth odist ESTIMATED GFR 2019-10-05 03:30:00 Brenda Jean Meth odist POC GLUCOSE 2019-10-04 23:41:00 Luke Sparks odist TRANSFUSE RED BLOOD CELLS 2019-10-04 22:05:19 Cisco De La Rosaist POC GLUCOSE 2019-10-04 19:54:00 Luke Sparks Meth odist POC GLUCOSE 2019-10-04 15:25:00 Luke Sparks Meth odist POC GLUCOSE 2019-10-04 11:18:00 Luke Sparks Meth odist POC GLUCOSE 2019-10-04 07:34:00 Luke Sparks Meth odist XR CHEST 1 VW PORTABLE 2019-10-04 06:15:47 Latiff Cassidybrittanymoisés cowartton [facility] POC GLUCOSE 2019-10-04 04:01:00 Luke Sparks Meth odist ARTERIAL BLOOD GAS 2019-10-04 02:30:00 LatCassidy zayasjignastephy solomon [facility] BASIC METABOLIC PANEL 2019-10-04 02:30:00 Latiff Ramiromoisés Hutchison ston [facility] CBC HEMOGRAM 2019-10-04 02:30:00 SylAreli zayas M ethodist MAGNESIUM LEVEL 2019-10-04 02:30:00 Latiff, Areli [place] M [facility]ist ESTIMATED GFR 2019-10-04 02:30:00 Latiff, Areli [place] M [facility]ist POC GLUCOSE 2019-10-04 00:17:00 Luke Sparks Meth odist POC GLUCOSE 2019-10-03 20:07:00 Luke Sparks Meth odist IONIZED CALCIUM, ARTERIAL 2019-10-03 19:53:00 LatiffAreli [facility] POTASSIUM LEVEL 2019-10-03 19:30:00 LatiffAreli M ethodist MAGNESIUM LEVEL 2019-10-03 19:30:00 Latiff, Areli [place] M [facility]ist POC GLUCOSE 2019-10-03 16:14:00 Luke Sparks Meth odist HEMOGLOBIN & HEMATOCRIT 2019-10-03 12:17:00 Tolu Goldman [facility] VANCOMYCIN LEVEL, RANDOM 2019-10-03 12:17:00 Sam Garcia [facility] POC GLUCOSE 2019-10-03 11:44:00 Luke Sparks [place] [facility] POC GLUCOSE 2019-10-03 08:30:00 Luke Sparks Meth odist TRANSFUSE RED BLOOD CELLS 2019-10-03 06:48:53 Areli Berumen [facility] XR CHEST 1 VW PORTABLE 2019-10-03 05:12:53 Areli Berumen jacinta [facility] POC GLUCOSE 2019-10-03 04:13:00 Luke Sparks odist COVID-19 QUALITATIVE PCR 2019-10-03 02:00:00 Robyn Pacheco Kianna gallardo [facility] BASIC METABOLIC PANEL 2019-10-03 01:48:00 Areli Berumen Kianna gallardo [facility] MAGNESIUM LEVEL 2019-10-03 01:48:00 Areli Berumen ethodist ESTIMATED GFR 2019-10-03 01:48:00 Areli Berumen ethodist CBC HEMOGRAM 2019-10-03 01:20:00 Areli Berumen ethodist POC GLUCOSE 2019-10-03 00:24:00 [place] Luke [place] Andrea odist POC GLUCOSE 2019-10-02 20:35:00 Jonathantraci Luke [place] Meth odist POC GLUCOSE 2019-10-02 16:59:00 Jonathantraci Luke [place] Meth odist ARTERIAL BLOOD GAS 2019-10-02 16:45:00 JonesTolu Clarence Hanks ECG 12-LEAD 2019-10-02 16:22:17 JonesTolu [place] Me thodist POC GLUCOSE 2019-10-02 12:09:00 [place] Luke [place] Meth odist POC GLUCOSE 2019-10-02 10:38:00 [place] Luke [place] Andrea odist VANCOMYCIN LEVEL, RANDOM 2019-10-02 10:00:00 Renetta Hartman [facility] POTASSIUM LEVEL 2019-10-02 10:00:00 JonesTolu [place] Me thodist MAGNESIUM LEVEL 2019-10-02 10:00:00 Jones Tolu Kushal [place] Me [facility]od[facility] PHOSPHORUS LEVEL 2019-10-02 10:00:00 JonesTolu [place] M ethodist SODIUM LEVEL 2019-10-02 10:00:00 JonesTolu [place] Me thodist IONIZED CALCIUM, ARTERIAL 2019-10-02 10:00:00 Tolu Goldman [facility] POC GLUCOSE 2019-10-02 07:58:00 Luke Sparks Meth odist POC GLUCOSE 2019-10-02 04:56:00 Luke Sparks odist XR CHEST 1 VW PORTABLE 2019-10-02 03:26:16 Latiff, Areli Blackmon [place] [facility] BASIC METABOLIC PANEL 2019-10-02 02:15:00 Latiff, Areli gallardo [facility] MAGNESIUM LEVEL 2019-10-02 02:15:00 Latiff, Areli Epstein ethodist ESTIMATED GFR 2019-10-02 02:15:00 Latiff, Areli Epstein ethodist CBC HEMOGRAM 2019-10-02 01:35:00 Latiff, Areli Epstein ethodist ARTERIAL BLOOD GAS 2019-10-02 01:35:00 Latiff, Areli Kiser n [facility] PREPARE RBC 2019-10-02 01:25:00 Latiff, Areli Epstein ethodist POC GLUCOSE 2019-10-02 00:30:00 Luke Sparks Meth odist POC GLUCOSE 2019-10-01 20:42:00 Luke Sparks Meth odist URINE CULTURE 2019-10-01 17:15:00 SutariaFuentes [facility] SODIUM LEVEL, URINE, RANDOM 2019-10-01 17:15:00 AngelariaFuentes arabrendon [place] [facility] POTASSIUM, URINE, RANDOM 2019-10-01 17:15:00 SutariaFuentes [facility] CHLORIDE LEVEL, URINE, RANDOM 2019-10-01 17:15:00 SutariaFuentestkumar [place] [facility] URINALYSIS SCREEN AND MICROSCOPY, WITH REFLEX TO CULTURE 202 17:15:00 Fuentes Larestkumar Clarence [facility] POC GLUCOSE 2019-10-01 15:35:00 Luke Sparks Meth odist XR CHEST 1 VW PORTABLE 2019-10-01 15:25:00 Robyn Pacheco [facility] POC GLUCOSE 2019-10-01 11:35:00 Luke Sparks Meth odist GENERAL 2019-10-01 11:23:04 Robyn Pacheco Meth odist VANCOMYCIN LEVEL, TROUGH 2019-10-01 10:18:00 Renetta Hartman [facility] POC GLUCOSE 2019-10-01 07:30:00 Luke Sparks Meth odist XR CHEST 1 VW PORTABLE 2019-10-01 06:04:00 Do, Vesta Erickson on [facility] POC GLUCOSE 2019-10-01 04:19:00 Luke Sparks Meth odist BASIC METABOLIC PANEL 2019-10-01 01:34:00 Do, Vesta Hanks HC COMPLETE BLD COUNT W/AUTO DIFF 2019-10-01 01:34:00 Do, Peg L[place] [facility] MAGNESIUM LEVEL 2019-10-01 01:34:00 Do, Vesta [place] Meth odist PHOSPHORUS LEVEL 2019-10-01 01:34:00 Do, Vesta [place] Met hodist ARTERIAL BLOOD GAS 2019-10-01 01:34:00 Do, Vesta Epstein ethodist IONIZED CALCIUM, ARTERIAL 2019-10-01 01:34:00 Do, Vesta cowartton [facility] ESTIMATED GFR 2019-10-01 01:34:00 Do, Vesta [place] Meth odist POC GLUCOSE 2019-10-01 00:08:00 JonathanveraLuke kramer Meth odist POC GLUCOSE 2019-09-30 20:01:00 JonathanveraLuke kramer Meth odist XR CHEST 1 VW PORTABLE 2019-09-30 17:06:12 Robyn Pacheco on [facility] POC GLUCOSE 2019-09-30 16:05:00 JonathanveraLuke kramer Meth odist POC GLUCOSE 2019-09-30 12:31:00 ImtiazLuke kramer Meth odist GENERAL 2019-09-30 12:22:58 Robyn Pacheco Meth odist ARTERIAL BLOOD GAS 2019-09-30 08:25:00 Renetta Hartman [facility] LACTIC ACID LEVEL 2019-09-30 08:05:00 Renetta Hartman [facility] POC GLUCOSE 2019-09-30 07:34:00 Imtiaznguyen Luke [place] Meth odist XR CHEST 1 VW PORTABLE 2019-09-30 06:14:00 DoVesta on [facility] POC GLUCOSE 2019-09-30 03:53:00 Imtiaznguyen Luke [place] Meth odist HC COMPLETE BLD COUNT W/AUTO DIFF 2019-09-30 01:19:00 Do, Peg Hanks BASIC METABOLIC PANEL 2019-09-30 01:19:00 Do, Vesta solomon [facility] ARTERIAL BLOOD GAS 2019-09-30 01:19:00 Do, Vesta Epstein ethodist MAGNESIUM LEVEL 2019-09-30 01:19:00 DoVesta Meth odist PHOSPHORUS LEVEL 2019-09-30 01:19:00 Do, Vesta Collier hodakira IONIZED CALCIUM, ARTERIAL 2019-09-30 01:19:00 Do, Vesta holman [facility] ESTIMATED GFR 2019-09-30 01:19:00 Do, Vesta [place] Meth odist POC GLUCOSE 2019-09-29 23:49:00 Luke Sparks Meth odist POC GLUCOSE 2019-09-29 19:51:00 Luke Sparks Meth odist POC GLUCOSE 2019-09-29 15:28:00 Luke Sparks Meth odist XR CHEST 1 VW PORTABLE 2019-09-29 14:57:33 Robyn Pacheco [facility] POC GLUCOSE 2019-09-29 11:33:00 Luke Sparks Meth odist GENERAL 2019-09-29 10:22:08 Robyn Pacheco Meth odist POC GLUCOSE 2019-09-29 07:31:00 Luke Sparks Meth odist POC GLUCOSE 2019-09-29 04:36:00 Luke Sparks Meth odist XR CHEST 1 VW PORTABLE 2019-09-29 04:29:00 Gary De La Rosa [facility] BASIC METABOLIC PANEL 2019-09-29 02:00:00 LatAreli zayas [facility] MAGNESIUM LEVEL 2019-09-29 02:00:00 Latmarquez Areli [place] Crista ethodist ESTIMATED GFR 2019-09-29 02:00:00 Areli Berumen Crista ethodist ARTERIAL BLOOD GAS 2019-09-29 01:35:00 Areli Berumen [facility] CBC HEMOGRAM 2019-09-29 01:35:00 Ata Areli Clarence Epstein ethodist POC GLUCOSE 2019-09-29 00:24:00 Luke Sparks Meth odist VANCOMYCIN LEVEL, TROUGH 2019-09-28 20:10:00 Stephani Jane [facility] POC GLUCOSE 2019-09-28 20:04:00 Luke Sparks Meth odist POC GLUCOSE 2019-09-28 15:17:00 Luke Sparks Meth odist XR CHEST 1 VW PORTABLE 2019-09-28 14:25:00 Robyn Pacheco on [facility] POC GLUCOSE 2019-09-28 11:37:00 Luke Sparks Meth odist GENERAL 2019-09-28 10:41:54 Robyn Pacheco Meth odist VANCOMYCIN LEVEL, TROUGH 2019-09-28 10:30:00 TammyearlneeKoryMorris Barbara epstein [place] [facility] POC GLUCOSE 2019-09-28 07:31:00 JonathanveraLuke kramer Meth odist XR CHEST 1 VW PORTABLE 2019-09-28 06:12:41 Gary De La Rosa [facility] POC GLUCOSE 2019-09-28 05:24:00 JonathanveraLuke kramer Meth odist BASIC METABOLIC PANEL 2019-09-28 01:13:00 LatiffAreli [facility] MAGNESIUM LEVEL 2019-09-28 01:13:00 Latiff, Areli Epstein ethodist ESTIMATED GFR 2019-09-28 01:13:00 LatiffAreli ethodist PHOSPHORUS LEVEL 2019-09-28 01:13:00 Areli Berumen [facility] CBC HEMOGRAM 2019-09-28 00:23:00 Areli Berumen ethodist ARTERIAL BLOOD GAS 2019-09-28 00:23:00 LatiffAreliaugusto n [facility] TYPE AND SCREEN 2019-09-28 00:23:00 LatiffAreli ethodist POC GLUCOSE 2019-09-27 23:59:00 JonathanveraLuke kramer Meth odist POC GLUCOSE 2019-09-27 20:27:00 Luke Sparks Meth odist POC GLUCOSE 2019-09-27 15:55:00 JonathanveraLuke kramer Meth odist XR CHEST 1 VW PORTABLE 2019-09-27 14:51:38 Robyn Pacheco on [facility] POC GLUCOSE 2019-09-27 11:37:00 JonathanveraLuke kramer Meth odist GENERAL 2019-09-27 10:58:57 Robyn Pacheco Meth odist POC GLUCOSE 2019-09-27 07:50:00 Luke Sparks odist XR CHEST 1 VW PORTABLE 2019-09-27 05:30:34 Gary De La Rosa [place] [facility] POC GLUCOSE 2019-09-27 03:46:00 Luke Sparks Meth odist BASIC METABOLIC PANEL 2019-09-27 00:11:00 Latiff, Areli Kianna ston [facility] MAGNESIUM LEVEL 2019-09-27 00:11:00 LatAreli zayas ethodist HEPATIC FUNCTION PANEL 2019-09-27 00:11:00 Latiff, Nooreahmed Ho [place] [facility] ESTIMATED GFR 2019-09-27 00:11:00 LatAreli zayas ethodist CBC HEMOGRAM 2019-09-27 00:05:00 LatAreli zayas ethodist ARTERIAL BLOOD GAS 2019-09-27 00:05:00 Latiff, Areli Hayleyto n [facility] POC GLUCOSE 2019-09-26 23:45:00 Luke Sparks Meth odist POC GLUCOSE 2019-09-26 19:41:00 Luke Sparks Meth odist POC GLUCOSE 2019-09-26 16:09:00 Luke Sparks Meth odist CT CHEST W CONTRAST ABDOMEN W CONTRAST PELVIS W CONTRAST 202 15:33:20 Evelia Coleman [facility] XR CHEST 1 VW PORTABLE 2019-09-26 14:19:18 Evelia Coleman [facility] POC GLUCOSE 2019-09-26 11:54:00 Luke Sparks Meth odist POC GLUCOSE 2019-09-26 07:48:00 Luke Sparks Meth odist XR CHEST 1 VW PORTABLE 2019-09-26 05:29:36 Gary De La Rosa [place] [facility] POC GLUCOSE 2019-09-26 03:29:00 Luke Sparks Meth odist BASIC METABOLIC PANEL 2019-09-26 02:10:00 Latiff, Nobrittanymed Kianna ston [facility] CBC HEMOGRAM 2019-09-26 02:10:00 LatiffAreli ethodist MAGNESIUM LEVEL 2019-09-26 02:10:00 Areli Berumen ethodist ARTERIAL BLOOD GAS 2019-09-26 02:10:00 Areli Berumen n [facility] ESTIMATED GFR 2019-09-26 02:10:00 Areli Berumen ethodist POC GLUCOSE 2019-09-26 00:05:00 Luke Sparks Meth odist POC GLUCOSE 2019-09-25 19:40:00 Luke Sparks [place] Meth odist US HEPATIC 2019-09-25 16:45:00 Irma Pretty on [facility] XR CHEST 1 VW PORTABLE 2019-09-25 16:03:27 Az Encinas [facility] POC GLUCOSE 2019-09-25 16:00:00 Luke Sparks Meth odist URINE CULTURE 2019-09-25 15:04:00 Coty Saleh ethodist POC GLUCOSE 2019-09-25 11:53:00 JonathanveraLuke kramer Clarence Meth odist URINALYSIS SCREEN AND MICROSCOPY, WITH REFLEX TO CULTURE 11:50:00 Coty Saleh SPUTUM CULTURE 2019-09-25 10:10:00 Coty Saleh ethodist GRAM STAIN 2019-09-25 10:10:00 Coty Saleh ethodist BLOOD CULTURE, AEROBIC & ANAEROBIC 2019-09-25 09:18:00 Coty Saleh BLOOD CULTURE, AEROBIC & ANAEROBIC 2019-09-25 09:00:00 Coty Saleh POC GLUCOSE 2019-09-25 07:42:00 Jonathanveranguyen Luke [place] Meth odist POC GLUCOSE 2019-09-25 04:13:00 JonathanveraLuke kramer Meth odist XR CHEST 1 VW PORTABLE 2019-09-25 04:11:00 Gary De La Rosa TRANSFUSE RED BLOOD CELLS 2019-09-25 03:09:03 Areli Berumen COMPREHENSIVE METABOLIC PANEL 2019-09-25 00:40:00 Dav De La Rosa MAGNESIUM LEVEL 2019-09-25 00:40:00 SylRamiro zayasmoisés [place] M ethodist ESTIMATED GFR 2019-09-25 00:40:00 Irma Pretty on [facility] BILIRUBIN DIRECT 2019-09-25 00:40:00 Irma Pretty [facility] PHOSPHORUS LEVEL 2019-09-25 00:40:00 Irma Pretty [facility] ARTERIAL BLOOD GAS 2019-09-25 00:36:00 SylRamiro zayasmoisés Hardyto n [facility] CBC HEMOGRAM 2019-09-25 00:36:00 Areli Berumen ethodist IONIZED CALCIUM, ARTERIAL 2019-09-25 00:36:00 Irma Prettyist POC GLUCOSE 2019-09-25 00:17:00 Luke Sparks Meth odist POC GLUCOSE 2019-09-24 20:06:00 Luke Sparks Meth odist COVID-19 QUALITATIVE PCR 2019-09-24 18:41:00 Evelia Colemang Kianna gallardo [facility] POC GLUCOSE 2019-09-24 15:56:00 ChiLuke aviles Meth odist POC GLUCOSE 2019-09-24 11:47:00 ChiLuke aviles Meth odist ECG 12-LEAD 2019-09-24 10:34:23 Tyrel Babcock Meth odist POC GLUCOSE 2019-09-24 07:49:00 ChiLuke aviles Meth odist POC GLUCOSE 2019-09-24 04:26:00 ChiLuke aviles Meth odist XR CHEST 1 VW PORTABLE 2019-09-24 04:00:00 Gary De La Rosa CBC WITH PLATELET AND DIFFERENTIAL 2019-09-24 00:06:00 DoCheryl BASIC METABOLIC PANEL 2019-09-24 00:06:00 DoVesta ARTERIAL BLOOD GAS 2019-09-24 00:06:00 Vesta Stubbs ethodist MAGNESIUM LEVEL 2019-09-24 00:06:00 DoVesta odist PHOSPHORUS LEVEL 2019-09-24 00:06:00 DoVesta ESTIMATED GFR 2019-09-24 00:06:00 Do, Vesta edwards IONIZED CALCIUM, ARTERIAL 2019-09-24 00:06:00 Do, Vesta Hanks MANUAL DIFFERENTIAL 2019-09-24 00:06:00 Do, Vesta Hanks PREPARE RBC 2019-09-24 00:06:00 Aerli Berumen ethodist POC GLUCOSE 2019-09-24 00:05:00 Luke Sparks Meth odist POC GLUCOSE 2019-09-23 19:53:00 Luke Sparks Meth odist POC GLUCOSE 2019-09-23 16:04:00 Luke Sparks Meth odist POTASSIUM LEVEL 2019-09-23 12:17:00 Renetta Hartman Bonnie [place] Me thodist MAGNESIUM LEVEL 2019-09-23 12:17:00 Renetta Hartman Bonnie [place] Me [facility]od[facility] IONIZED CALCIUM 2019-09-23 12:17:00 Renetta Hartman Bonnie [place] Me [facility]od[facility] PHOSPHORUS LEVEL 2019-09-23 12:17:00 Renetta Hartman Bonnie Epstein ethodist POC GLUCOSE 2019-09-23 12:11:00 Luke Sparks Meth odist RESPIRATORY PATHOGEN PANEL 2019-09-23 11:45:00 Luke Sparks [facility] AFB CULTURE 2019-09-23 11:45:00 Luke Sparks Meth odist RESPIRATORY CULTURE 2019-09-23 11:45:00 Luke Sparks [facility] FUNGUS CULTURE 2019-09-23 11:45:00 Luke Sparks Meth odist FUNGUS SMEAR 2019-09-23 11:45:00 Luke Sparks Meth odist AFB STAIN 2019-09-23 11:45:00 Luke Sparks Meth odist POC GLUCOSE 2019-09-23 07:59:00 ChiLuke aviles Meth odist POC GLUCOSE 2019-09-23 03:41:00 SalinasLuke Meth odist XR CHEST 1 VW PORTABLE 2019-09-23 01:04:00 Do, Vesta Hanks CBC WITH PLATELET AND DIFFERENTIAL 2019-09-23 00:15:00 Do, Cheryl Hanks BASIC METABOLIC PANEL 2019-09-23 00:15:00 Do, Vesta Hanks ARTERIAL BLOOD GAS 2019-09-23 00:15:00 Do, Vesta [place] M ethodist MAGNESIUM LEVEL 2019-09-23 00:15:00 Do, Vesta Mendez odist PHOSPHORUS LEVEL 2019-09-23 00:15:00 Do, Vesta [place] Met hodist IONIZED CALCIUM, ARTERIAL 2019-09-23 00:15:00 Do, Vesta Hanks ESTIMATED GFR 2019-09-23 00:15:00 Do, Vesta Mendez odist MANUAL DIFFERENTIAL 2019-09-23 00:15:00 Do, Vesta Hanks POC GLUCOSE 2019-09-22 23:32:00 Luke Sparks BLOOD CULTURE, AEROBIC & ANAEROBIC 2019-09-22 21:30:00 Do, Cheryl Hanks BLOOD CULTURE, AEROBIC & ANAEROBIC 2019-09-22 20:28:00 Do, Cheryl Hanks POC GLUCOSE 2019-09-22 19:55:00 Luke Sparks odist TRANSFUSE RED BLOOD CELLS 2019-09-22 19:28:06 Brayden Couch XR CHEST 1 VW PORTABLE 2019-09-22 18:00:06 Dinh Lee [facility] POC GLUCOSE 2019-09-22 16:02:00 Luke Sparks Meth odist POTASSIUM LEVEL 2019-09-22 14:01:00 Brenda Jean Meth odist MAGNESIUM LEVEL 2019-09-22 14:01:00 Brenda Jean Meth odist PHOSPHORUS LEVEL 2019-09-22 14:01:00 Brenda Jean Met hodist IONIZED CALCIUM 2019-09-22 14:01:00 Brenda Jean Meth odist US INSERT PLEURA CATHETER 2019-09-22 13:25:33 Robyn Pacheco POC GLUCOSE 2019-09-22 13:00:[address] CHEST WO CONTRAST 2019-09-22 12:25:06 Robyn Pacheco PARTIAL THROMBOPLASTIN TIME (PTT) 2019-09-22 08:30:00 Robyn Pacheco PROTHROMBIN TIME WITH INR 2019-09-22 08:30:00 JuniorRobyn farfan Neymar cowartjacinta [facility] POC GLUCOSE 2019-09-22 07:37:00 Luke Sparks Meth odist POC GLUCOSE 2019-09-22 03:46:00 Luke Sparks Meth odist XR CHEST 1 VW PORTABLE 2019-09-22 02:38:00 HoneyKevin Josiah narvaez [place] [facility] BASIC METABOLIC PANEL 2019-09-22 01:42:00 LatiffAreli [facility] ESTIMATED GFR 2019-09-22 01:42:00 Latiff, Areli Epstein ethodist PHOSPHORUS LEVEL 2019-09-22 01:42:00 Latiff, Areli [place] [facility] MAGNESIUM LEVEL 2019-09-22 01:42:00 LatiffAreli ethodist CBC HEMOGRAM 2019-09-22 01:00:00 Latmarquez, Areli Epstein ethodist ARTERIAL BLOOD GAS 2019-09-22 01:00:00 LatmarquezAreli n [facility] POC GLUCOSE 2019-09-21 23:53:00 Luke Sparks Meth odist POC GLUCOSE 2019-09-21 19:30:00 Luke Sparks Meth odist ARTERIAL BLOOD GAS 2019-09-21 16:45:00 Brayden Couch [facility] BASIC METABOLIC PANEL 2019-09-21 16:45:00 Brayden Couch [facility] MAGNESIUM LEVEL 2019-09-21 16:45:00 Brayden Couch [facility] PHOSPHORUS LEVEL 2019-09-21 16:45:00 Brayden Couch [facility] ESTIMATED GFR 2019-09-21 16:45:00 Brayden Couch [facility] POC GLUCOSE 2019-09-21 15:42:00 Luke Sparks [facility] POC GLUCOSE 2019-09-21 15:39:00 Luke Sparks [facility] POC GLUCOSE 2019-09-21 11:37:00 Luke Sparks [facility] ARTERIAL BLOOD GAS 2019-09-21 09:30:00 GheewalBrayden kramer POC GLUCOSE 2019-09-21 07:33:00 Imtiaznguyen Luke Lima [facility] XR CHEST 1 VW PORTABLE 2019-09-21 06:07:26 LatiffAreli river [facility] POC GLUCOSE 2019-09-21 03:57:00 Jonathanveranguyen Luke Lima [facility] CBC HEMOGRAM 2019-09-21 00:15:00 LatAreli zayas [facility] BASIC METABOLIC PANEL 2019-09-21 00:15:00 Latiff, Areli Kianna gallardo [facility] MAGNESIUM LEVEL 2019-09-21 00:15:00 Latiff, Areli Epstein [facility] ARTERIAL BLOOD GAS 2019-09-21 00:15:00 Latiff Areli Hanks ESTIMATED GFR 2019-09-21 00:15:00 Areli Berumen [facility] POC GLUCOSE 2019-09-20 23:53:00 Luke Sparks odakira ECG 12-LEAD 2019-09-20 20:53:59 Brayden Couch POC GLUCOSE 2019-09-20 19:46:00 Luke Sparks [facility] XR CHEST 1 VW PORTABLE 2019-09-20 18:35:50 Brayden Couch CO AN ELECTIVE ENDOTRACHEAL AIRWAY 2019-09-20 17:23:36 Cale Olivas FUNGUS CULTURE 2019-09-20 17:10:00 Luke Sparks [facility] AFB STAIN 2019-09-20 17:10:00 Luke Sparks [facility] AFB CULTURE 2019-09-20 17:10:00 Luke Sparks [facility] GRAM STAIN 2019-09-20 17:10:00 Luke Sparks odist RESPIRATORY CULTURE 2019-09-20 17:10:00 Luke Sparks ARTERIAL BLOOD GAS, CORRECTED 2019-09-20 17:05:00 Luke Sparks SODIUM LEVEL, SYRINGE 2019-09-20 17:05:00 Luke Sparks POTASSIUM, SYRINGE 2019-09-20 17:05:00 Luke Sparks ethodist IONIZED CALCIUM, ARTERIAL 2019-09-20 17:05:00 Luke Sparks [facility] HEMOGLOBIN, SYRINGE 2019-09-20 17:05:00 Luke Sparks GLUCOSE LEVEL, SYRINGE 2019-09-20 17:05:00 Luke Sparks on [facility] POC GLUCOSE 2019-09-20 16:05:00 Luke Sparks odakira HEPATIC FUNCTION PANEL 2019-09-20 14:18:00 Kevin Méndez ph [facility] THYROID STIMULATING HORMONE 2019-09-20 14:18:00 Kevin Méndez [facility] TYPE AND SCREEN 2019-09-20 14:00:00 Luke Sparks PREPARE RBC 2019-09-20 14:00:00 Brayden Couch [facility] POTASSIUM LEVEL 2019-09-20 12:41:00 Brayden Couch [facility] MAGNESIUM LEVEL 2019-09-20 12:41:00 Brayden Couch [facility] PHOSPHORUS LEVEL 2019-09-20 12:41:00 Brayden Couch [facility] IONIZED CALCIUM 2019-09-20 12:41:00 Brayden Couch [facility] POC GLUCOSE 2019-09-20 11:52:00 Luke Sparks odist POC GLUCOSE 2019-09-20 07:51:00 Luke Sparks odakira XR CHEST 1 VW PORTABLE 2019-09-20 05:36:46 Areli Berumen [facility] BASIC METABOLIC PANEL 2019-09-20 02:05:00 Areli Berumen [facility] MAGNESIUM LEVEL 2019-09-20 02:05:00 Areli Berumen [facility] HEPATIC FUNCTION PANEL 2019-09-20 02:05:00 Areli Berumen [facility] ESTIMATED GFR 2019-09-20 02:05:00 Areli Berumen [facility] IONIZED CALCIUM 2019-09-20 02:05:00 Arlei Berumen [facility] PHOSPHORUS LEVEL 2019-09-20 02:05:00 Areli Berumen [facility] PROTHROMBIN TIME WITH INR 2019-09-20 01:20:00 Areli Berumen CBC HEMOGRAM 2019-09-20 01:00:00 Areli Berumen [facility] COVID-19 QUALITATIVE PCR 2019-09-20 00:35:00 [place] Luke gallardo [facility] POC GLUCOSE 2019-09-19 23:36:00 Luke Sparks [facility] POC GLUCOSE 2019-09-19 20:37:00 Luke Sparks [facility] od[facility] CT CHEST W CONTRAST ABDOMEN W CONTRAST 2019-09-19 17:25:00 Timmy Padron [facility] POC GLUCOSE 2019-09-19 16:11:00 Luke Sparks [facility] POC GLUCOSE 2019-09-19 12:10:00 Luke Sparks [facility] POC GLUCOSE 2019-09-19 07:19:00 Luke Sparks [facility] XR CHEST 1 VW PORTABLE 2019-09-19 03:51:07 LatAreli zayas river [facility] POC GLUCOSE 2019-09-19 03:34:00 Luke Sparks [facility] BASIC METABOLIC PANEL 2019-09-19 01:59:00 Areli Berumen Kianna gallardo [facility] MAGNESIUM LEVEL 2019-09-19 01:59:00 Areli Berumen [facility] ESTIMATED GFR 2019-09-19 01:59:00 Areli Berumen ethodist CBC HEMOGRAM 2019-09-19 00:40:00 Areli Berumen ethodist POC GLUCOSE 2019-09-19 00:17:00 ChiLuke aviles Meth odist POC GLUCOSE 2019-09-19 00:15:00 Luke Sparks Meth odist POC GLUCOSE 2019-09-18 20:31:00 ChiLuke aviles Meth odist POC GLUCOSE 2019-09-18 15:50:00 Luke Sparks Meth odist POC GLUCOSE 2019-09-18 07:51:00 ChiLuke aviles Meth odist POC GLUCOSE 2019-09-18 03:57:00 Luke Sparks Meth odist XR CHEST 1 VW PORTABLE 2019-09-18 03:12:00 Tarsha Gray ton [facility] BASIC METABOLIC PANEL 2019-09-18 00:05:00 Tarsha Gray on [facility] CBC WITH PLATELET AND DIFFERENTIAL 2019-09-18 00:05:00 Tatiana Gray leelanguyen [place] [facility] IONIZED CALCIUM 2019-09-18 00:05:00 Tarsha Gray Met [facility]odist MAGNESIUM LEVEL 2019-09-18 00:05:00 Tarsha Gray Met [facility] PHOSPHORUS LEVEL 2019-09-18 00:05:00 Tarsha Gray Me thodist TYPE AND SCREEN 2019-09-18 00:05:00 Tarsha Gray Met [facility] ESTIMATED GFR 2019-09-18 00:05:00 Tarsha Gray Met [facility] TROPONIN 2019-09-18 00:05:00 Tarsha Gray Met [facility] MANUAL DIFFERENTIAL 2019-09-18 00:05:00 Tarsha Gray [facility] POC GLUCOSE 2019-09-17 23:55:00 Luke Sparks Meth odist ECG 12-LEAD 2019-09-17 21:28:18 Tarsha Gray Met hodist POC GLUCOSE 2019-09-17 20:02:00 Luke Sparks Meth odist POC GLUCOSE 2019-09-17 16:58:00 Luke Sparks Meth odist POC GLUCOSE 2019-09-17 13:14:00 Luke Sparks Meth odist XR CHEST 1 VW PORTABLE 2019-09-17 09:00:00 Dong Roy on [facility] POC GLUCOSE 2019-09-17 08:24:00 Luke Sparks Meth odist POC GLUCOSE 2019-09-17 08:22:00 Luke Sparks Meth odist ECG 12-LEAD 2019-09-17 03:38:28 Dong Roy Meth odist TRIGLYCERIDES 2019-09-17 01:30:00 Luke Sparks Meth odist THYROID STIMULATING HORMONE 2019-09-17 01:30:00 AlbaGUILLERMINA [facility] T4, FREE 2019-09-17 01:30:00 AlbaGUILLERMINA Meth odist HEPATIC FUNCTION PANEL 2019-09-17 01:30:00 AlbaGUILLERMINA solomon Hayleyt on [facility] CBC WITH PLATELET AND DIFFERENTIAL 2019-09-17 01:30:00 Kirill Dong Clarence [facility] BASIC METABOLIC PANEL 2019-09-17 01:30:00 Dong Roy n [facility] MAGNESIUM LEVEL 2019-09-17 01:30:00 Dong Roy Meth odist PHOSPHORUS LEVEL 2019-09-17 01:30:00 Dong Roy Met hodist IONIZED CALCIUM 2019-09-17 01:30:00 Jones Royst [place] Meth [facility] ESTIMATED GFR 2019-09-17 01:30:00 Dong Roy Meth odist TROPONIN 2019-09-17 01:30:00 Jones Royst [place] Meth [facility] MANUAL DIFFERENTIAL 2019-09-17 01:30:00 Dong Roy [facility] POC GLUCOSE 2019-09-16 20:06:00 Luke Sparks Meth odist TROPONIN 2019-09-16 18:17:00 Kevin Méndez [facility] XR CHEST 1 VW PORTABLE 2019-09-16 15:37:03 oRbyn Pacheco on [facility] POC GLUCOSE 2019-09-16 15:31:00 Luke Sparks Meth odist TTE COMPLETE, W CONTRAST, W DOPPLER ([id number]) 2019-09-16 13:50:00 Alba GUILLERMINA Yonny [place] [facility] POC GLUCOSE 2019-09-16 11:31:00 Luke Sparks Meth odist POC GLUCOSE 2019-09-16 07:37:00 Luke Sparks Meth odist TROPONIN 2019-09-16 06:29:00 Kevin Méndez [facility] POC GLUCOSE 2019-09-16 03:36:00 Luke Sparks Meth odist ECG 12-LEAD 2019-09-16 03:21:20 Dong Roy Meth odist CBC WITH PLATELET AND DIFFERENTIAL 2019-09-16 01:00:00 Dong Roy [facility] BASIC METABOLIC PANEL 2019-09-16 01:00:00 Dong Roy n [facility] MAGNESIUM LEVEL 2019-09-16 01:00:00 RoyJones kuhnst [place] [facility] PHOSPHORUS LEVEL 2019-09-16 01:00:00 Dong Roy Met hodist IONIZED CALCIUM 2019-09-16 01:00:00 Dong Roy Meth odist ESTIMATED GFR 2019-09-16 01:00:00 Dong Roy Meth odist ARTERIAL BLOOD GAS 2019-09-16 01:00:00 Dong Roy ethodist MANUAL DIFFERENTIAL 2019-09-16 01:00:00 Dong Roy [facility] POC GLUCOSE 2019-09-16 00:57:00 Luke pSarks Meth odist POC GLUCOSE 2019-09-15 20:08:00 Luke Sparks Meth odist XR PICC CHEST PORTABLE 2019-09-15 16:07:01 Luke Sparks on [facility] POC GLUCOSE 2019-09-15 15:48:00 Luke Sparks Meth roqueist HC CVL PICC INSERT 5 YRS OR > W/RS&I AND IMG GUID 2019-09-15 15: 26:56 Rene Babcock HC CATH DUAL LUMEN PICC # [id number] 3160-06-24 15:26:56 Rene Babcock LACTIC ACID LEVEL 2019-09-15 14:08:00 Dulce Toscano thodist CBC WITH PLATELET AND DIFFERENTIAL 2019-09-15 14:08:00 Juan Toscano [facility] MANUAL DIFFERENTIAL 2019-09-15 14:08:00 Dulce Toscano [facility] POC GLUCOSE 2019-09-15 12:08:00 uLke Sparks Meth odist POC GLUCOSE 2019-09-15 07:42:00 Luke Sparks Meth odist XR CHEST 1 VW PORTABLE 2019-09-15 04:32:00 Dong Roy on [facility] POC GLUCOSE 2019-09-15 04:14:00 Luke Sparks Meth odist ECG 12-LEAD 2019-09-15 03:07:12 Dong Roy Meth odist POC GLUCOSE 2019-09-15 00:11:00 Luke Sparks Meth odist ARTERIAL BLOOD GAS 2019-09-15 00:10:00 Dong Roy ethodist CBC WITH PLATELET AND DIFFERENTIAL 2019-09-15 00:10:00 Dong Roy BASIC METABOLIC PANEL 2019-09-15 00:10:00 Dong Roy [facility] MAGNESIUM LEVEL 2019-09-15 00:10:00 Dong Roy odakira PHOSPHORUS LEVEL 2019-09-15 00:10:00 Dong Roy Met hodist LACTIC ACID LEVEL 2019-09-15 00:10:00 Dong Roy Nm thodist IONIZED CALCIUM, ARTERIAL 2019-09-15 00:10:00 Dong Roy [facility] ESTIMATED GFR 2019-09-15 00:10:00 Dong Roy odakira MANUAL DIFFERENTIAL 2019-09-15 00:10:00 Dong Roy POC GLUCOSE 2019-09-14 19:53:00 Luke Sparks odakira PROTEIN, URINE, RANDOM 2019-09-14 18:45:00 Luke Sparks [facility] SODIUM LEVEL, URINE, RANDOM 2019-09-14 18:45:00 Luke Sparks CREATININE LEVEL, URINE, RANDOM 2019-09-14 18:45:00 Luke Sparks [facility] MICROALBUMIN, URINE, RANDOM 2019-09-14 18:45:00 Luke Sparks [facility] ARTERIAL BLOOD GAS 2019-09-14 18:00:00 Coty Saleh [facility] POC GLUCOSE 2019-09-14 17:31:00 Luke Sparks Meth odist POC GLUCOSE 2019-09-14 15:40:00 Luke Sparks odakira URINE CULTURE 2019-09-14 14:13:00 Fuentes Lares [facility] URINALYSIS SCREEN AND MICROSCOPY, WITH REFLEX TO CULTURE 14:12:00 Fuentes Lares [facility] SODIUM LEVEL, URINE, RANDOM 2019-09-14 14:12:00 Fuentes Lares [facility] CREATININE LEVEL, URINE, RANDOM 2019-09-14 14:12:00 Alan Lares [facility] PROTEIN, URINE, RANDOM 2019-09-14 14:12:00 Fuentes Lares [facility] ARTERIAL BLOOD GAS 2019-09-14 13:59:00 Coty Saleh BASIC METABOLIC PANEL 2019-09-14 13:59:00 Coty Saleh [facility] ESTIMATED GFR 2019-09-14 13:59:00 Coty Saleh ethodist POC GLUCOSE 2019-09-14 13:54:00 Luke Sparks Meth odist VITAMIN B12 LEVEL 2019-09-14 12:29:00 Brinana Sarmiento Nm thodist VITAMIN D 25 HYDROXY LEVEL 2019-09-14 12:29:00 Brianna Sarmiento VITAMIN A LEVEL, PLASMA OR SERUM 2019-09-14 12:29:00 Rahul Sarmiento VITAMIN B1 LEVEL, WHOLE BLOOD 2019-09-14 12:29:00 Brianna Sarmiento COPPER LEVEL, SERUM 2019-09-14 12:29:00 Brianna Sarmiento ZINC LEVEL, SERUM 2019-09-14 12:29:00 Brianna Sarmiento Nm thodist POC GLUCOSE 2019-09-14 12:02:00 Luke Sparks Meth odist POC GLUCOSE 2019-09-14 10:24:00 Luke Sparks Meth odist LACTIC ACID LEVEL 2019-09-14 08:39:00 Morris Aquino on [facility] CBC WITH PLATELET AND DIFFERENTIAL 2019-09-14 08:39:00 Kory Aquino [facility] ARTERIAL BLOOD GAS 2019-09-14 08:39:00 Morris Aquino [facility] MANUAL DIFFERENTIAL 2019-09-14 08:39:00 Morris Aquino [facility] POC GLUCOSE 2019-09-14 08:25:00 Luke Sparks Meth odist ECG 12-LEAD 2019-09-14 06:39:03 Coty Saleh ethodist POC GLUCOSE 2019-09-14 06:33:00 Luke Sparks Meth odist POC GLUCOSE 2019-09-14 06:21:00 Luke Sparks Meth odist CBC WITH PLATELET AND DIFFERENTIAL 2019-09-14 04:50:00 Neha Berumen PROTHROMBIN TIME WITH INR 2019-09-14 04:50:00 Latiff, Areli [place] [facility] ARTERIAL BLOOD GAS 2019-09-14 04:50:00 Latiff, Areli solomon [facility] IONIZED CALCIUM, ARTERIAL 2019-09-14 04:50:00 Latiff, Areli [place] [facility] MANUAL DIFFERENTIAL 2019-09-14 04:50:00 Latiff, Areli Erickson on [facility] XR CHEST 1 VW PORTABLE 2019-09-14 04:25:00 OhJanina on [facility] BLOOD CULTURE, AEROBIC & ANAEROBIC 2019-09-14 04:20:00 Latiff, Neha hughesbrittanymoisés [place] [facility] BLOOD CULTURE, AEROBIC & ANAEROBIC 2019-09-14 04:19:00 Latiff, N ellenbrittanymoisés Fuist POC GLUCOSE 2019-09-14 04:15:00 Luke Sparks odist BASIC METABOLIC PANEL 2019-09-14 04:14:00 Latiff, Areli gallardo [facility] MAGNESIUM LEVEL 2019-09-14 04:14:00 Latiff, Areli [place] M ethodist PHOSPHORUS LEVEL 2019-09-14 04:14:00 Latiff, Areli [place] [facility] PARTIAL THROMBOPLASTIN TIME (PTT) 2019-09-14 04:14:00 Latiff, Cassidy sidhu [place] [facility] ESTIMATED GFR 2019-09-14 04:14:00 Latiff, Areli [place] M ethodist ARTERIAL BLOOD GAS, CORRECTED 2019-09-14 02:09:00 Luke Sparks POTASSIUM, SYRINGE 2019-09-14 02:09:00 Luke Sparks ethodist SODIUM LEVEL, SYRINGE 2019-09-14 02:09:00 Luke Sparks [facility] HEMOGLOBIN, SYRINGE 2019-09-14 02:09:00 Luke Sparks IONIZED CALCIUM, ARTERIAL 2019-09-14 02:09:00 Luke Sparks LACTIC ACID, SYRINGE 2019-09-14 02:09:00 Luke Sparks GLUCOSE LEVEL, SYRINGE 2019-09-14 02:09:00 Luke Sparks on [facility] ANAEROBIC CULTURE 2019-09-14 01:49:00 Luke Sparks Me thodist FUNGUS CULTURE 2019-09-14 01:49:00 Luke Sparks Meth odist AFB CULTURE 2019-09-14 01:49:00 Luke Sparks Meth odist FUNGUS SMEAR 2019-09-14 01:49:00 Luke Sparks odist AFB STAIN 2019-09-14 01:49:00 Luke Sparks Meth odist TISSUE CULTURE 2019-09-14 01:49:00 Luke Sparks Meth odist ARTERIAL BLOOD GAS, CORRECTED 2019-09-14 00:42:00 ImtiazLuke kramer Clarence [facility] SODIUM LEVEL, SYRINGE 2019-09-14 00:42:00 Luke Sparks n [facility] POTASSIUM, SYRINGE 2019-09-14 00:42:00 Luke Sparks ethodist IONIZED CALCIUM, ARTERIAL 2019-09-14 00:42:00 Luke Sparks [facility] GLUCOSE LEVEL, SYRINGE 2019-09-14 00:42:00 Luke Sparks [facility] HEMOGLOBIN, SYRINGE 2019-09-14 00:42:00 [place] Luke Clarence [facility] LACTIC ACID, SYRINGE 2019-09-14 00:42:00 Luke Sparks ARTERIAL BLOOD GAS, CORRECTED 2019-09-13 23:50:00 Luke Sparksist POTASSIUM, SYRINGE 2019-09-13 23:50:00 Luke Sparks ethodist SODIUM LEVEL, SYRINGE 2019-09-13 23:50:00 Luke Sparks [facility] HEMOGLOBIN, SYRINGE 2019-09-13 23:50:00 ImtiaznguyenLuke [facility] IONIZED CALCIUM, ARTERIAL 2019-09-13 23:50:00 Luke Sparks [facility] LACTIC ACID, SYRINGE 2019-09-13 23:50:00 Luke Sparks [facility] ARTERIAL BLOOD GAS, CORRECTED 2019-09-13 22:42:00 Luke Sparks [facility] SODIUM LEVEL, SYRINGE 2019-09-13 22:42:00 Luke Sparks n [facility] POTASSIUM, SYRINGE 2019-09-13 22:42:00 Luke Sparks M ethodist HEMOGLOBIN, SYRINGE 2019-09-13 22:42:00 Chihara, Ray [place] [facility] IONIZED CALCIUM, ARTERIAL 2019-09-13 22:42:00 Luke Sparks GLUCOSE LEVEL, SYRINGE 2019-09-13 22:42:00 Luke Sparks [facility] LACTIC ACID, SYRINGE 2019-09-13 22:42:00 Luke Sparks ARTERIAL LINE 2019-09-13 22:21:48 Sindy Swan Meth odakira CO AN ELECTIVE ENDOTRACHEAL AIRWAY 2019-09-13 22:11:17 Mario Swan ARTERIAL BLOOD GAS, CORRECTED 2019-09-13 21:39:00 Luke Sparks SODIUM LEVEL, SYRINGE 2019-09-13 21:39:00 Luke Sparks [facility] HEMOGLOBIN, SYRINGE 2019-09-13 21:39:00 Luke Sparks POTASSIUM, SYRINGE 2019-09-13 21:39:00 Luke Sparks ethodist GLUCOSE LEVEL, SYRINGE 2019-09-13 21:39:00 Luke Sparks [facility] IONIZED CALCIUM, ARTERIAL 2019-09-13 21:39:00 Luke Sparks PROTHROMBIN TIME WITH INR 2019-09-13 21:39:00 Luke Sparks HEMOGLOBIN & HEMATOCRIT 2019-09-13 21:39:00 Luke Sparks PLATELET COUNT 2019-09-13 21:39:00 Luke Sparks odakira FIBRINOGEN 2019-09-13 21:39:00 Luke Sparks Meth odakira TYPE AND SCREEN 2019-09-13 21:32:00 Luke Sparks Meth odist PREPARE RBC 2019-09-13 21:32:00 Luke Sparks Meth odakira PREPARE FRESH FROZEN PLASMA 2019-09-13 21:32:[address] CHEST WO CONTRAST 2019-09-13 17:20:08 Hemal Grullon on [facility] LACTIC ACID LEVEL, SEPSIS - NOW AND REPEAT 2X EVERY 3 HOURS 2019-09-13 17:20:[address] ABDOMEN PELVIS WO CONTRAST 2019-09-13 17:19:57 Radha Cheng URINE CULTURE 2019-09-13 16:57:00 BookerMiguel álvarez Met hodist AEROBIC CULTURE 2019-09-13 16:55:00 BookerMiguel álvarez Met hodist GRAM STAIN 2019-09-13 16:55:00 Miguel Celeste Met hodist AMYLASE LEVEL, [facility] [place] FLUID 2019-09-13 16:55:00 Latosha Acevedoist LDH, [facility] FLUID 2019-09-13 16:55:00 Latosha Acevedo on [facility] PH, [facility] [place] FLUID 2019-09-13 16:55:00 Latosha Acevedo on [facility] PROTEIN, [facility] [place] FLUID 2019-09-13 16:55:00 Latosha Acevedo GLUCOSE LEVEL, [facility] FLUID 2019-09-13 16:55:00 Latosha Acevedo URINALYSIS SCREEN AND MICROSCOPY, WITH REFLEX TO CULTURE 202 16:39:00 Latosha Acevedo BLOOD CULTURE, AEROBIC & ANAEROBIC 2019-09-13 15:24:00 BookerMiguel BLOOD CULTURE, AEROBIC & ANAEROBIC 2019-09-13 15:12:00 BookerMiguel TROPONIN 2019-09-13 15:12:00 Miguel Celeste Met hodist FIBRINOGEN 2019-09-13 15:12:00 Miguel Celeste Met hodist D-DIMER 2019-09-13 15:12:00 Miguel Celeste Met hodist PROTHROMBIN TIME WITH INR 2019-09-13 15:12:00 BookerMiguel álvarez PARTIAL THROMBOPLASTIN TIME (PTT) 2019-09-13 15:12:00 Booker, Nguyen Hanks LACTIC ACID LEVEL, SEPSIS - NOW AND REPEAT 2X EVERY 3 HOURS 2019-09-13 15:12:00 Miguel Celeste XR CHEST 1 VW PORTABLE 2019-09-13 15:02:05 Miguel Celeste TRANSFUSE FRESH FROZEN PLASMA 2019-09-13 13:55:09 Miguel Celeste TRANSFUSE FRESH FROZEN PLASMA 2019-09-13 13:28:23 Miguel Celeste PREPARE RBC 2019-09-13 12:10:00 Miguel Celeste hodist PREPARE FRESH FROZEN PLASMA 2019-09-13 12:10:[address] CHEST WO CONTRAST 2019-09-13 12:09:38 Miguel Celeste n [facility] XR CHEST 1 VW PORTABLE 2019-09-13 11:34:21 BookerMiguel [facility] OCCULT BLOOD, STOOL 2019-09-13 11:25:00 BookerMiguel álvarez XR CHEST 1 VW PORTABLE 2019-09-13 10:29:39 BookerMiguel [facility] CBC WITH PLATELET AND DIFFERENTIAL 2019-09-13 09:35:00 BookerMiguel álvarez PROTHROMBIN TIME WITH INR 2019-09-13 09:35:00 Miguel Celeste [facility] PARTIAL THROMBOPLASTIN TIME (PTT) 2019-09-13 09:35:00 BookerNguyen joyner BASIC METABOLIC PANEL 2019-09-13 09:35:00 BookerMiguel álvarez on [facility] HEPATIC FUNCTION PANEL 2019-09-13 09:35:00 BookerMiguel álvarez [facility] MAGNESIUM LEVEL 2019-09-13 09:35:00 Miguel Celeste Met hodist LIPASE LEVEL 2019-09-13 09:35:00 BookerMiguel álvarez Met hodist B NATRIURETIC PEPTIDE 2019-09-13 09:35:00 BookerMiguel álvarez on [facility] TROPONIN 2019-09-13 09:35:00 Miguel Celeste Met hodist CREATINE KINASE, TOTAL (CPK) 2019-09-13 09:35:00 Miguel Celeste ESTIMATED GFR 2019-09-13 09:35:00 Miguel Celeste Met hodist MANUAL DIFFERENTIAL 2019-09-13 09:35:00 Miguel Celeste HC CVL NON-TUNNELED INSERT 5YRS OR > 2019-09-13 09:24:33 Miguel Celeste CO TUBE THORACOSTOMY INCLUDES WATER SEAL 2019-09-13 09:24:33 Miguel Maria CO CRITICAL CARE, E/M 30-74 MINUTES 2019-09-13 09:24:33 Miguel Celeste CO CRITICAL CARE, ADDL 30 MIN 2019-09-13 09:24:33 Miguel Celeste ECG ED PRELIMINARY INTERPRETATION 2019-09-13 09:24:33 Nguyen Celeste COVID-19 QUALITATIVE PCR 2019-09-13 09:20:00 Miguel Celeste POC GLUCOSE 2019-09-13 09:11:00 Miguel Celeste Met hodist ECG 12-LEAD 2019-09-13 09:02:15 Miguel Celeste Met hodist SURGICAL PATHOLOGY REQUEST 2019-09-13 08:30:[address] HEAD WO CONTRAST 2019-08-06 22:51:45 Chicho Bess COLONOSCOPY-EXTERNAL 2019-05-28 00:00:00 Provider, Historical Neymar Hanks XR SHOULDER 2+ VW LEFT 2019-04-14 09:30:37 Hiro Cruz CO ARTHROCENTESIS ASPIR&/INJ MAJOR JT/BURSA W/O 2019-03-25 2 09:15:00 Hiro Cruz POC GLUCOSE 2019-03-29 15:17:00 Karla Garrison Meth odist POC GLUCOSE 2019-03-29 09:11:00 Karla Garrison Meth odist POC GLUCOSE 2019-03-29 05:05:00 Karla Garrison Meth odist POC GLUCOSE 2019-03-29 01:34:00 Karla Garrison Meth odist POC GLUCOSE 2019-03-28 21:26:00 Karla Garrison Meth odist POC GLUCOSE 2019-03-28 17:21:00 Karla Garrison Meth odist POC GLUCOSE 2019-03-28 13:29:00 Jogllynn Karla [place] Meth odist POC GLUCOSE 2019-03-28 09:33:00 Joglekjohn Karla [place] Meth odist POC GLUCOSE 2019-03-28 05:48:00 Joglekjohn Karla [place] Meth odist HC COMPLETE BLD COUNT W/AUTO DIFF 2019-03-28 05:15:00 Pricilla Clayton [facility] BASIC METABOLIC PANEL 2019-03-28 05:15:00 Olvin Easley Pricilla L H david [facility] MAGNESIUM LEVEL 2019-03-28 05:15:00 DiabDawna Meth odist PHOSPHORUS LEVEL 2019-03-28 05:15:00 DiabDawna Met hodist ESTIMATED GFR 2019-03-28 05:15:00 Basia Miranda [facility] POC GLUCOSE 2019-03-28 01:19:00 Jogllynn Karla [place] Meth odist POC GLUCOSE 2019-03-27 13:10:00 JoGlenis rogersvicky [place] Meth odist POC GLUCOSE 2019-03-27 09:02:00 Joglekjohn Karla [place] Meth odist POC GLUCOSE 2019-03-27 05:56:00 Joglekjohn Karla [place] Meth odist HC COMPLETE BLD COUNT W/AUTO DIFF 2019-03-27 05:28:00 Pricilla Clayton [facility] BASIC METABOLIC PANEL 2019-03-27 05:28:00 Pricilla Mcbride [facility] ESTIMATED GFR 2019-03-27 05:28:00 Basia Miranda [facility] POC GLUCOSE 2019-03-27 02:08:00 JoglGlenis baileyati Clarence Meth odist POC GLUCOSE 2019-03-26 21:31:00 Joglekjohn Karla [place] Meth odist POC GLUCOSE 2019-03-26 20:54:00 JoglGlenis baileyati [place] Meth odist US THORACENTESIS WITH IMAGING 2019-03-26 18:58:48 Rodrigo Walton XR CHEST 1 VW PORTABLE 2019-03-26 18:17:02 Ronnie Rodriguez on [facility] POC GLUCOSE 2019-03-26 17:02:00 JoglKarla bailey Meth odist PARTIAL THROMBOPLASTIN TIME (PTT) 2019-03-26 13:35:00 TuanKaitlin alexandra Clarence [facility] PROTHROMBIN TIME WITH INR 2019-03-26 13:35:00 TuanRonnie alexandra river [facility] POC GLUCOSE 2019-03-26 08:59:00 Bavare, Arusha Amod Clarence [facility] HC COMPLETE BLD COUNT W/AUTO DIFF 2019-03-26 08:55:00 Bah Pricilla Steel [facility] BASIC METABOLIC PANEL 2019-03-26 08:55:00 Bah Easley Pricilla L Paolo hernandez [facility] ESTIMATED GFR 2019-03-26 08:55:00 Bavare, Arusha Amod Clarence [facility] CT ABDOMEN PELVIS W CONTRAST 2019-03-26 07:40:11 Parth Walton [facility] POC GLUCOSE 2019-03-26 05:07:00 Bavare, Arusha Amod Clarence [facility] POC GLUCOSE 2019-03-25 21:08:00 Bavare, Arusha Amod Clarence [facility] POC GLUCOSE 2019-03-25 13:03:00 Bavare, Arusha Amod Clarence [facility] POC GLUCOSE 2019-03-25 09:02:00 Bavare, Arusha Amod Clarence [facility] POC GLUCOSE 2019-03-25 05:06:00 Bavare, Arusha Amod Clarence [facility] BASIC METABOLIC PANEL 2019-03-25 04:55:00 Natalie Nicholson [facility] CBC HEMOGRAM 2019-03-25 04:55:00 Natalie Nicholson odist ESTIMATED GFR 2019-03-25 04:55:00 Bavare, Arusha Amod Clarence [facility] POC GLUCOSE 2019-03-25 01:15:00 Bavare, Arusha Amod Clarence [facility] POC GLUCOSE 2019-03-24 20:42:00 Bavare, Arusha Amod Clarence [facility] POC GLUCOSE 2019-03-24 09:29:00 Bavare, Arusha Amod Clarence [facility] POC GLUCOSE 2019-03-24 06:01:00 Bavare, Arusha Amod Clarence [facility] BASIC METABOLIC PANEL 2019-03-24 06:00:00 Natalie Nicholson [facility] CBC HEMOGRAM 2019-03-24 06:00:00 Natalie Nicholson Meth odist ESTIMATED GFR 2019-03-24 06:00:00 Basia Miranda [facility] POC GLUCOSE 2019-03-24 01:24:00 Basia Miranda [facility] POC GLUCOSE 2019-03-23 20:07:00 Basia Miranda [facility] POC GLUCOSE 2019-03-23 16:47:00 Basia Miranda [facility] POC GLUCOSE 2019-03-23 12:57:00 Basia Miranda [place] [facility] POC GLUCOSE 2019-03-23 09:12:00 Basia Miranda [facility] POC GLUCOSE 2019-03-23 05:31:00 Basia Miranda Clarence [facility] BASIC METABOLIC PANEL 2019-03-23 05:10:00 Natalie Nicholson CBC HEMOGRAM 2019-03-23 05:10:00 Natalie Nicholson PREALBUMIN LEVEL 2019-03-23 05:10:00 Natalie Nicholson hodist ESTIMATED GFR 2019-03-23 05:10:00 Basia Miranda [place] [facility] POC GLUCOSE 2019-03-22 20:29:00 Basia Miranda [facility] POC GLUCOSE 2019-03-22 16:56:00 Basia Miranda [place] [facility] POC GLUCOSE 2019-03-22 13:22:00 Basia Miranda [facility] POC GLUCOSE 2019-03-22 09:29:00 Basia Miranda Clarence [facility] HC COMPLETE BLD COUNT W/AUTO DIFF 2019-03-22 05:01:00 St gerard Michelle BASIC METABOLIC PANEL 2019-03-22 05:01:00 Jimenez Michelle MAGNESIUM LEVEL 2019-03-22 05:01:00 Jimenez Michelle PHOSPHORUS LEVEL 2019-03-22 05:01:00 Jimenez Michelle ESTIMATED GFR 2019-03-22 05:01:00 RubenBasia Dorota Hanks CBC WITH PLATELET AND DIFFERENTIAL 2019-03-21 12:33:00 Han Michelle BASIC METABOLIC PANEL 2019-03-21 12:33:00 Miguel AngelJimenez drummond [facility] MAGNESIUM LEVEL 2019-03-21 12:33:00 Miguel AngelJimenez PHOSPHORUS LEVEL 2019-03-21 12:33:00 Miguel AngelJimenez [facility] ESTIMATED GFR 2019-03-21 12:33:00 Basia Miranda [facility] MANUAL DIFFERENTIAL 2019-03-21 12:33:00 Basia Miranda [facility] CBC WITH PLATELET AND DIFFERENTIAL 2019-03-20 09:38:00 Miguel Angel, Han april Lima [facility] MANUAL DIFFERENTIAL 2019-03-20 09:38:00 Basia Miranda [facility] BASIC METABOLIC PANEL 2019-03-20 07:26:00 Miguel AngelJimenez MAGNESIUM LEVEL 2019-03-20 07:26:00 Jimenez Michelle PHOSPHORUS LEVEL 2019-03-20 07:26:00 Jimenez Michelle [facility] ESTIMATED GFR 2019-03-20 07:26:00 Basia Miranda TTE COMPLETE, WO CONTRAST, W DOPPLER ([id number]) 2019-03-19 10:1 7:33 Camacho Solomon HC COMPLETE BLD COUNT W/AUTO DIFF 2019-03-19 05:06:00 Crista Grullon COMPREHENSIVE METABOLIC PANEL 2019-03-19 05:06:00 Korin Grullon ESTIMATED GFR 2019-03-19 05:06:00 Hemal Grullon Nm thodist LIPASE LEVEL 2019-03-19 05:06:00 Sean Campos ethodist AMYLASE LEVEL 2019-03-19 05:06:00 Sean Campos ethodist THYROID STIMULATING HORMONE 2019-03-18 17:46:00 Camacho Solomon VITAMIN B1 LEVEL, WHOLE BLOOD 2019-03-18 17:46:00 Camacho Solomon FOLATE LEVEL 2019-03-18 17:46:00 Camacho Solomon ethodist VITAMIN B12 LEVEL 2019-03-18 17:46:00 Neha Camacho [place] [facility] TROPONIN 2019-03-18 17:46:00 Neha Camacho [place] M ethodist B NATRIURETIC PEPTIDE 2019-03-18 17:46:00 Kavitha Solomonjohn Peoples Kianna ston [facility] CT ABDOMEN PELVIS W CONTRAST 2019-03-18 10:19:[address] ANGIOGRAM PE CHEST 2019-03-18 10:19:36 Geo Walton TROPONIN 2019-03-18 09:26:00 Geo Walton [facility] LACTIC ACID LEVEL 2019-03-18 09:26:00 Geo Walton [facility] ECG 12-LEAD 2019-03-18 09:19:37 Geo Waltonto neha [facility] ECG 12-LEAD 2019-03-18 04:54:54 Ginny Ortiz Meth odist CBC WITH PLATELET AND DIFFERENTIAL 2019-03-18 04:52:00 Hemal Grullon COMPREHENSIVE METABOLIC PANEL 2019-03-18 04:52:00 Korin Grullon ESTIMATED GFR 2019-03-18 04:52:00 Hemal Grullon Me thodist TROPONIN 2019-03-18 04:52:00 Ginny Ortiz Meth odist MANUAL DIFFERENTIAL 2019-03-18 04:52:00 Hemal Grullon [facility] CBC WITH PLATELET AND DIFFERENTIAL 2019-03-17 16:50:00 Anette Emery [facility] MANUAL DIFFERENTIAL 2019-03-17 16:50:00 Shiela Chapin [facility] XR CHEST 1 VW PORTABLE 2019-03-17 05:47:31 Reza Sanchez [facility] CBC WITH PLATELET AND DIFFERENTIAL 2019-03-17 04:30:00 Hemal Grullon COMPREHENSIVE METABOLIC PANEL 2019-03-17 04:30:00 Korin Grullon MAGNESIUM LEVEL 2019-03-17 04:30:00 Reza Sanchez ton [facility] PHOSPHORUS LEVEL 2019-03-17 04:30:00 Reza Sanchez husamneha [facility] ESTIMATED GFR 2019-03-17 04:30:00 Reza Sanchez [facility] MANUAL DIFFERENTIAL 2019-03-17 04:30:00 Reza Sanchez POC GLUCOSE 2019-03-17 01:15:00 Jeffcoby Johnlolanguyen Dorota Lima [facility] CBC WITH PLATELET AND DIFFERENTIAL 2019-03-16 15:13:00 Miguel Celeste BASIC METABOLIC PANEL 2019-03-16 15:13:00 Miguel Celeste on [facility] ESTIMATED GFR 2019-03-16 15:13:00 Miguel Celeste hodist MANUAL DIFFERENTIAL 2019-03-16 15:13:00 Miguel Celeste NICOTINE AND COTININE, SERUM 2019-03-16 03:52:00 Parth Walton CBC WITH PLATELET AND DIFFERENTIAL 2019-03-16 03:52:00 Cristian Melton BASIC METABOLIC PANEL 2019-03-16 03:52:00 Cristina Melton ESTIMATED GFR 2019-03-16 03:52:00 Cristina Melton [facility] MANUAL DIFFERENTIAL 2019-03-16 03:52:00 Cristina Melton CO AN ELECTIVE ENDOTRACHEAL AIRWAY 2019-03-15 20:21:12 Herbie Lopez URINE CULTURE 2019-03-15 16:26:00 Miguel Celeste Met hodakira GRAM STAIN 2019-03-15 16:26:00 Miguel Celeste Met hodist TROPONIN 2019-03-15 16:10:00 Miguel Celeste hodist BLOOD CULTURE, AEROBIC & ANAEROBIC 2019-03-15 15:01:00 Miguel Celeste BLOOD CULTURE, AEROBIC & ANAEROBIC 2019-03-15 14:58:00 Miguel Celeste URINALYSIS SCREEN AND MICROSCOPY, WITH REFLEX TO CULTURE 201 12-03-22 14:09:00 Miguel Celeste TROPONIN 2019-03-15 13:45:00 Miguel Celeste Met [facility] CT ABDOMEN PELVIS W CONTRAST 2019-03-15 13:42:22 Miguel Celeste CO CRITICAL CARE, E/M 30-74 MINUTES 2019-03-15 11:35:19 Miguel Celeste CO CRITICAL CARE, ADDL 30 MIN 2019-03-15 11:35:19 Miguel Celeste ECG ED PRELIMINARY INTERPRETATION 2019-03-15 11:35:19 Nguyen Celeste CBC WITH PLATELET AND DIFFERENTIAL 2019-03-15 10:10:00 Miguel Celeste COMPREHENSIVE METABOLIC PANEL 2019-03-15 10:10:00 Miguel Celeste TROPONIN 2019-03-15 10:10:00 Miguel Celeste Met hodist B NATRIURETIC PEPTIDE 2019-03-15 10:10:00 Miguel Celeste on [employer] LIPASE LEVEL 2019-03-15 10:10:00 Miguel Celeste Met hodist MAGNESIUM LEVEL 2019-03-15 10:10:00 Miguel Celeste Met hodist ESTIMATED GFR 2019-03-15 10:10:00 Miguel Celeste Met [facility]od[facility] BILIRUBIN DIRECT 2019-03-15 10:10:00 Miguel Celeste Me thodist ECG 12-LEAD 2019-03-15 10:00:15 Miguel Celeste Met hodist Diagnostic evaluation with medical - [id number] 2019-02-21 19:32: 56 Meenakshi Briceno [facility] Planned Activity Planned Date Details Comments Source Future Scheduled Test 2023-10-12 00:00:00 COLONOSCOPY SCREEN ING [code = COLONOSCOPY SCREENING] [facility] Future Scheduled Test 2020-12-29 00:00:00 BREAST CANCER SCRE ENING [code = BREAST [facility]CER [facility]CRE[facility] 2019-10-23 00:00:00 INFLUENZA VACCINE [code = INFLUENZA VACCINE] [facility] Future Scheduled Test 2013 00:00:00 65+ PNEUMOCOCCAL V ACCINE (2 of 2 - PPSV23) [code = 65+ PNEUMOCOCCAL VACCINE (2 of 2 - PPSV23)] [facility] Future Scheduled Test 1998 00:00:00 SHINGLES VACCINES (#1) [code = SHINGLES VACCINES (#1)] [facility] Medication 2020-01-17 00:00:00 cyanocobalamin 1,000 mcg/mL injection [code = 771278] [facility] Encounters Start Date/Time End Date/Time Encounter Type Admission Type Attendi [facility] Care Department Encounter ID Source 2019-12-06 00:00:00 2019-12-27 00:00:00 Inpatient JIMENEZ CARR [facility] [id number] [facility] 2019-11-26 00:00:00 2019-11-26 00:00:00 Outpatient SENAITMOLINA CARREON MA [facility] [id number] [facility] 2019-09-13 00:00:00 2019-11-05 00:00:00 Inpatient LUKE SPARKS [id number] [facility] 2019-09-15 00:00:00 2019-09-15 00:00:00 Office Visit Meenakshi Briceno [facility] Encounter/[id number] Replaced By [facility] 2019-09-13 00:00:00 2019-09-13 00:00:00 Emergency BASIA MIRANDA [facility] [id number] [facility] 2019-08-30 00:00:00 2019-08-30 00:00:00 Office Visit Meenakshi Moore Norma [id number] [facility] 2019-08-26 00:00:00 2019-08-26 00:00:00 Outpatient KARON HAMILTON RA [facility] [id number] [facility] 2019-08-06 00:00:00 2019-08-07 00:00:00 Emergency [facility] [id number] [facility] 2019-07-20 00:00:00 2019-07-20 00:00:00 Outpatient GEO OWEN [facility] [id number] [facility] 2019-06-23 00:00:00 2019-06-23 00:00:00 Office Visit Meenakshi Briceno [facility] Encounter/[id number] [facility] 2019-06-16 00:00:00 2019-06-16 00:00:00 Office Visit Meenakshi Briceno [facility] Encounter/[id number] [facility] 2019-06-16 00:00:00 2019-06-16 00:00:00 Office Visit Meenakshi Briceno [facility] Encounter/[id number] Replaced By [facility] 2019-05-31 00:00:00 2019-05-31 00:00:00 Office Visit Meenakshi Moore Jose E [id number] [facility] 2019-05-13 00:00:00 2019-05-13 00:00:00 Office Visit Meenakshi Moore Mary N [facility] Encounter/[id number] [facility] 2019-03-15 00:00:00 2019-03-29 00:00:00 MAG Pearce I [facility] [id number] [facility] 2019-02-08 00:00:00 2019-02-08 00:00:00 Office Visit Meenakshi Briceno [facility] Encounter/[id number] Replaced By [facility] 2019-02-08 00:00:00 2019-02-08 00:00:00 Office Visit Meenakshi Briceno [facility] Encounter/[id number] Replaced By [facility] 2019-02-08 00:00:00 2019-02-08 00:00:00 [facility][id number] [facility] By [facility] 2019-02-08 00:00:00 2019-02-08 00:00:00 Office Visit Meenakshi Briceno [facility] Encounter/[id number] Replaced By [facility] 2019-02-08 00:00:00 2019-02-08 00:00:00 Office Visit Meenakshi Briceno [facility] Encounter/[id number] Replaced By [facility] 2019-02-08 00:00:00 2019-02-08 00:00:00 Office Visit Meenakshi Briceno [facility] Encounter/[id number] Replaced By [facility] 2019-02-08 00:00:00 2019-02-08 00:00:00 Office Visit Meenakshi Briceno [facility] Encounter/[id number] Replaced By [facility] 2019-02-08 00:00:00 2019-02-08 00:00:00 Office Visit Brigette lamaMeenakshi Jazmin [facility] Encounter/[id number] Critical access hospital 2018-11-19 00:00:00 2018-11-19 00:00:00 Office Visit Joyce Washington [facility] Encounter/[id number] Replaced By [facility] Results Test Description Test Time Test Comments Results Result Comments Source POC glucose 2019-12-27 12:05:26 Test Item POC glucose (test code = 52071-4) 109 mg/dL 65-99 H Business Intelligence Architect Name: Logan CarringtonAnastasia ID: [id number]: No Action Needed Lab Interpretation (test code = 61701-7) [facility] ukwfdvq5513-44-38 06:55:23* Test Item Value Reference Range Interpretation Comments BNP (test code = 41540-4) 432 pg/mL 0-100 H Lab Interpretation (test code = 50596-5) [facility]normal [facility] beltd1949-55-94 06:44:30* Test Item Value Reference Range Interpretation Comments Sodium (test code = 2951-2) 139 135- 148 mEq/L Potassium (test code = 2823-3) 4.2 3.5- 5.0 mEq/L Chloride (test code = 2075-0) 98 98- 112 mEq/L CO2 (test code = 8-9) 26 24- 31 mEq/L Anion gap (test code = 19727-4) 15@ANIO 7- 15 mEq/L BUN (test code = 3094-0) 27 mg/dL 8-23 H Creatinine (test code = 2160-0) 0.54 mg/dL 0.5-0.9 Glucose (test code = 2345-7) 118 mg/dL 65-99 H Calcium (test code = 83053-8) 9.5 mg/dL 8.8-10.2 Lab Interpretation (test code = 37789-9) Abnormal [place] [facility] rvirj7460-09-31 06:44:19* Test Item Value Reference Range Interpretation Comments Magnesium (test code = 24342-0) 2.1 mg/dL 1.6-2.4 [place] MethodistEstimated QIK2492-28-30 06:44:19* Test Item Value Reference Range Interpretation Comments Estimated GFR (test code = 5488) >=90 mL/min/1.73 m2 Catergory Units InterpretationG1 >=90 Normal or highG2 60-89 Mildly wigoswllgB2e 45-59 Mildly to moderately crwngocfwG8n 30-44 Moderately to severely decreasedG4 15-29 Severely decreasedG5 <15 Kidney failureThe eGFR was calculated using the Chronic Kidney Disease Epidemiology Collaboration (CKD-EPI) equation. Interpretation is based on recommendations of the National Kidney Foundation-Kidney Disease Outcomes Quality Initiative (NKF-KDOQI) published in 2014. [place] MethodistCBC with platelet and awfeolvzgsab7472-05-80 06:11:37* Test Item Value Reference Range Interpretation Comments WBC (test code = 09692-5) 9.39 4.50- 11.00 k/uL RBC (test code = 16778-0) 3.07 m/uL 4.2-5.5 L HGB (test code = 718-7) 9.4 g/dL 12-16 L HCT (test code = 4544-3) 30.3 % 37-47 L MCV (test code = 787-2) 98.7 fL 82-100 MCH (test code = 785-6) 30.6 pg 27-34 MCHC (test code = 786-4) 31.0 g/dL 31-37 RDW - SD (test code = 23621-1) 65.1 fL 37-55 H MPV (test code = 58127-1) 8.7 fL 8.8-13.2 L Platelet count (test code = 70424-6) 360 150- 400 k/uL Nucleated RBC (test code = 23149-0) 0.00 /100 WBC Neutrophils (test code = 19147-8) 62.8 % 39-69 Lymphocytes (test code = 91479-1) 11.0 % 25-45 L Monocytes (test code = 84616-4) 7.9 % 0-10 Eosinophils (test code = 10548-5) 17.0 % 0-5 H Basophils (test code = 03737-5) 0.7 % 0-1 Immature granulocytes (test code = 12952-5) 0.6 % 0-1 "Immature granulocytes" (promyelocytes, myelocytes, metamyelocytes) Lab Interpretation (test code = 63014-8) Abnormal [place] MethodistECG 12 pjgl1684-29-88 20:25:42* Test Item Value Reference Range Interpretation Comments Ventricular rate (test code = 253) 76 Atrial rate (test code = 255) 76 CO interval (test code = 266) 174 QRSD interval (test code = 260) 94 QT interval (test code = 264) 350 QTC interval (test code = 265) 393 P axis 1 (test code = 267) 37 QRS axis 1 (test code = 268) 3 T wave axis (test code = 270) 48 EKG impression (test code = 273) Normal sinus rhythm-L ow voltage QRS-Nonspecific T wave abnormality-Abnormal ECG-In automated comparison with ECG of 25-DEC-2019 10:16,-Sinus rhythm has replaced Ectopic atrial rhythm- Clarence FuistXR Chest 1 Vw Qiamlrhs0395-70-71 09:42:25Hm Interface, Radiology Results - 12/24/2019 9:45 AM CDTEXAMINATION: XR CHEST 1 PORTABLECLINICAL HISTORY: shortness of breathCOMPARISON: Chest radiograph December 19, 2019IMPRESSION:Lines and tubes: Left PICC line terminates at the cavoatrial junction.Heart and mediastinum: Cardiomediastinal silhouette is mildly enlarged unchanged in contour.Lungs and pleura: Interstitial opacities and vascular congestion are unchanged. There is persistent retrocardiac and ri ght basilar volume loss with small pleural effusions, slightly greater on the ri ght and partially loculated in the right major fissure. No pneumothorax.Bones: N o acute abnormality.[facility]-[id number] and approved by vice president of business development/trang villalobosw: Roger Katz, Mickey Chin MD, personally reviewed the images and resident's/fellow's findings and agree with the final report.Clarence Hanks Anaerobic ytkefnr5105-87-00 08:11:36* Test Item Value Reference Range Interpretation Comments Anaerobic culture isolate (test code = 552) No anaerobic organis ms isolated. Specimen InformationSpecimen Source: Tho racentesis fluidSpecimen Site: Not otherwise specified Clarence FuistAerobic qpusevf2006-89-72 21:16:06* Test Item Value Reference Range Interpretation Comments Aerobic culture isolate (test code = 498) No growth after 3 days. Specimen InformationSpecimen Source: Thoracentesis fluidSpecimen Site: Not otherwise specified Clarence FuistFL Modified Barium Oretswa8730-84-80 12:01:39Hm Interface, Radiology Results - 12/22/2019 12:04 PM CDTEXAMINATION: FL MODIFIED BARIUM SWALLOWCLINICAL HISTORY: Aspiration known or suspected. Dysphagia, pharyngeal phase. Esophagectomy.COMPARISON: None.Fluoroscopy time: 1.2 minutes. Reference air kerma, 3.26 mGyTECHNIQUE: The patient swallowed varying consistencies of barium under direct lateral fluoroscopic evaluation. The study was performed in conjunction with speech pathology.IMPRESSION:The patient swallo wed each consistency without evidence aspiration, with only intermittent penetra tion with thin barium.Please see speech pathology report for further details.1D2 RAD_PS04Houpaulina HanksProtein, ciemi4153-23-62 10:18:27* Test Item Value Reference Range Interpretation Comments Protein (test code = 2885-2) 6.4 g/dL 6.3-8.3 -[place] 4.6- 7.0 g/dL1 week 4.4-7.6 g/dL7 months-1year 5.1-7.3 g/dL1-2 years 5.6-7.5 g/dL>3 years 6.0-8.0 g/xN28-972 6.3-8.3 g/dL Clarence Robertsurgical pathology phteekx3641-23-45 12:52:31* Test Item Value Reference Range Interpretation Comments Case number (test code = 6887482) [id number] Surgical pathology report (test code = 2255) See link below for PDF Lab Report Result status (test code = 1685106) This is Final Report for [id number] Clarence FuakiraPhosphorus aqikw7536-33-39 06:30:25* Test Item Value Reference Range Interpretation Comments Phosphorus (test code = 2777-1) 3.8 mg/dL 2.4-4.5 [place] MethodistGram yykfz4052-36-29 21:42:32* Test Item Value Reference Range Interpretation Comments Gram stain isolate (test code = 1469) No WBC's or organisms seen. Specimen InformationSpecimen Source: Thoracentesis fluidSpecimen Site: Not otherwise specified [place] MethodistCell count and differential, body ossfw6601-65-18 18:40:22* Test Item Value Reference Range Interpretation Comments Misc fluid type (test code = 82625-0) Thoracentesis Color, fluid (test code = 6824-7) Yellow Appearance, fluid (test code = 9335-1) Hazy RBC, fluid (test code = 84683-2) SEE COMMENT /CMM 2+ (500 - 10,000 RBC/CMM) Nucleated cells, fluid (test code = 40551-5) 623 /CMM Fluid mononuclear cell (test code = 1407) See Diff Neutrophils, fluid (test code = 10603-2) 27 % Lymphocytes, fluid (test code = 74223-6) 69 % Eosinophils, fluid (test code = 38243-0) 3 % Macrophages, fluid (test code = 68743-9) 1 % [place] MethodistProthrombin time with [id number] 16:42:38* Test Item Value Reference Range Interpretation Comments Prothrombin time (test code = 5902-2) 21.9 11.5- 14.5 sec H INR (test code = 20353-0) 1.9 Th e International Normalized Ratio (INR) is a therapeutic monitoring tool for patients who are stable on oral anticoagulant therapy. An INR of 2.0-3.0 is suggested for deep vein thrombosis/pulmonary embolism. Lab Interpretation (test code = 19234-5) Abnormal [place] MethodistGlucose level, [facility] rpnwc6498-50-99 16:27:35* Test Item Value Reference Range Interpretation Comments Fluid type (test code = 17393-3) Thoracentesis Glucose, fluid (test code = 2344-0) 78 mg/dL The reference interval(s) and other method performance specifications have not been established for this body fluid. The test results must be integrated into the clinical context for interpretation.This test has been modified from the manufacturers instructions. The performance characteristics were determined by [facility] in a manner consistent with CLIA requirements. This test has not been cleared or approved by the U.S. Food and Drug Administration. Clarence Reyes [facility] rtfkq5226-47-44 16:27:35* Test Item Value Reference Range Interpretation Comments Fluid type (test code = 58651-5) Thoracentesis Protein, fluid (test code = 2881-1) 2.9 g/dL The reference interval(s) and other method performance specifications have not been established for this body fluid. The test results must be integrated into the clinical context for interpretation.This test has been modified from the manufacturers instructions. The performance characteristics were determined by [facility] in a manner consistent with CLIA requirements. This test has not been cleared or approved by the U.S. Food and Drug Administration. [facility] Nickiegila regional medical centerXR Chest 1 [id number] 12:43:32Hm Interface, Radiology Results Incoming 12/19/2019 12:46 PM CDTEXAM:XR CHEST 1 VWINDICATION:post thoraCOMPARISON:Chest AP dated 12/19/2019 at 6:35 AM.IMPRESSION:Small right pleural effusion decreasing, compatible with history of interval thoracentesis.Minimal pulmonary vascular congestion decreasing.Minimal hazy alve olar and final interstitial opacities throughout both lungs, decreasing, likely decreasing pulmonary edema.Otherwise unchanged without evidence pneumothorax.Lef t upper extremity PICC with tip at superior cavoatrial junction, adequate locati on.Surgical clips medial projecting over the central aspect left lower lung.Roun ded masslike opacity right midlung, likely fluid loculated within the fissure. S mall left pleural effusion. Minimal consolidative opacities medial bilateral tristan g bases, with associated 1 loss favoring subsegmental atelectasis over pneumonia .Moderate cardiomegaly.Minimal degenerative changes thoracic spine.1D2RAD_PS03 Clarence HanksUS Thoracentesis With Dtgfqrk6702-04-86 12:07:26Hm Interface, Radiology Results Incoming - 12/19/2019 12:10 PM CDTPERFORMING RAD IOLOGIST:Wisam Yang MD.ASSISTANTS:None. ANESTHESIA TYPE:Lidocaine 1% wa s used for local anesthetic. ANTIBIOTICS:None.PRE PROCEDURE DIAGNOSIS: Symptomat ic pleural effusion.POST PROCEDURE DIAGNOSIS: Status post thoracentesis. PROCEDU RE: Ultrasound-guided right diagnostic and therapeutic thoracentesis.TECHNIQUE: Written informed consent was obtained prior to the procedure. All elements of [facility] sterile barrier technique were followed. The patient was placed in right s faiza up position and ultrasound imaging of the right chest was performed, demonst rating a moderate, complex pleural effusion. A suitable approach was identified. The patient's chest was then sterilely prepared and draped in the routine paul r. Maximal sterile barrier, hand hygiene, skin preparation technique was followe d.Under real-time ultrasound guidance, 10 cc of lidocaine 1% was administered to the overlying soft tissues and pleura with a 25-gauge needle. A dermatotomy was made. Then, using real-time ultrasound guidance, a 6 Prydeinig pigtail catheter sy stem was advanced into the pleural space using the trocar technique, with return of clear, yellow pleural fluid. A total of 250 cc of fluid was removed with vac uum suction. The catheter was removed. Hemostasis was achieved with manual compr ession.Limited postprocedural ultrasound of the chest following completion of th oracentesis demonstrated moderate amount of heterogeneously hypoechoic material throughout the pleural space pleural fluid.COMPLICATIONS: None. SPECIMENS REMOVE D: Approximately 60 cc of fluid were submitted for laboratory evaluation. ESTIMA CONCHA BLOOD LOSS:Less than 2 mL. BLOOD PRODUCTS ADMINISTERED: None. CONTRAST/IMPLA NTS:As described in the above report. IMPRESSION:Moderate, complex right pleural effusion. Successful ultrasound-guided right diagnostic and therapeutic thorace ntesis with removal of 250 mL of clear, yellow pleural fluid. Moderate on of res idual heterogeneously hypoechoic material within the pleural space remain despit e thoracentesis.1D2RAD_PS03[place] MethodistTotal iron binding capacity 2019-12-19 06:14:32* Test Item Value Reference Range Interpretation Comments Iron level (test code = 2498-4) 31 ug/dL 37-145 L Iron binding capacity (test code = 2500-7) 181 ug/dL 200-400 L % Saturation (test code = 2502-3) 17.1 % 15-38 Lab Interpretation (test code = 43180-4) Abnormal [place] MethodistPrepare RBC, 2 Pjpxz2544-00-11 16:13:00* Test Item Value Reference Range Interpretation Comments Product name (test code = 25) Red Blood Cells -1, Leukored Unit number (test code = 5060822) [id number] Product code (test code = 3092) [id number] Dispense status (test code = 24) Transfused Blood expiration date (test code = 302) [id number] Blood type code (test code = 308) 6207 Blood type (test code = 1314) A POSITIVE Compatibility (test code = 6400) Compatible Clarence FuistUS Ifkib4352-47-87 15:07:32Hm Interface, Radiology Results 12/18/2019 3:10 PM CDTEXAMINATION: 66CLINICAL HISTORY: 69 years Female Pleural effusion, new pleural effusion on rightCOMPARISON: None.IMPRESSION:Right chest:Right-sided pleural effusion measures 602ml. There are are small septationsLeft chest:Left-sided pleural effusion measures 66ml. There are no septations or loculationsHoucooley dickinson hospital MethodistSmear vxwgou7603-23-03 12:46:16* Test Item Value Reference Range Interpretation Comments Platelet slide review (test code = 08874-9) Romero adequate Anisocytosis (test code = 702-1) Moderate Polychromasia (test code = 84967-9) Moderate Ovalocytes (test code = 774-0) Moderate Enlarged platelets (test code = 65464-3) Moderate A Lab Interpretation (test code = 86688-0) Abnormal [place] MethodistType and escbxn6770-97-20 07:27:00* Test Item Value Reference Range Interpretation Comments ABO grouping (test code = 883-9) A Rh type (test code = 66853-7) POS Antibody screen (gel) (test code = 890-4) NEG [place] MethodistRespiratory kpcvxhg0068-76-94 18:26:50* Test Item Value Reference Range Interpretation Comments Respiratory culture isolate (test code = 27268-8) Normal oral fl ora isolated. Specimen InformationSpecimen Source: Bro nchial WashingSpecimen Site: PEG (Left Upper Lobe) LLL (Left Lower Lobe) Clarence MethodistHemoglobin & mgewjohmyh5218-69-43 10:58:35* Test Item Value Reference Range Interpretation Comments HGB (test code = 718-7) 7.4 g/dL 12-16 L HCT (test code = 4544-3) 25.1 % 37-47 L Lab Interpretation (test code = 65600-3) Abnormal [place] MethodistFolate nebud5543-31-35 06:32:33* Test Item Value Reference Range Interpretation Comments Folate (test code = 2284-8) 17.1 ng/mL 4.8-24.2 [place] MethodistFungus zfwjg1795-96-35 15:51:48* Test Item Value Reference Range Interpretation Comments Fungus smear (test code = 1443) No fungi observed. Specimen InformationSpecimen Source: Bronchial WashingSpecimen Site: PEG (Left Upper Lobe) LLL (Left Lower Lobe) [place] MethodistAFB pvukj1210-00-40 13:46:38* Test Item Value Reference Range Interpretation Comments AFB stain (test code = 676-7) No acid fast bacilli (AFB) seen. Specimen InformationSpecimen Source: Bronchial WashingSpecimen Site: PEG (Left Upper Lobe) LLL (Left Lower Lobe) [place] NickieistComprehensive metabolic kdqnb2974-86-64 06:27:31* Test Item Value Reference Range Interpretation Comments Sodium (test code = 2951-2) 142 135- 148 mEq/L Potassium (test code = 2823-3) 3.7 3.5- 5.0 mEq/L Chloride (test code = 2075-0) 102 98- 112 mEq/L CO2 (test code = 8-9) 32 24- 31 mEq/L H Anion gap (test code = 60582-5) 8@ANIO 7- 15 mEq/L BUN (test code = 3094-0) 21 mg/dL 8-23 Creatinine (test code = 2160-0) 0.47 mg/dL 0.5-0.9 L Glucose (test code = 2345-7) 115 mg/dL 65-99 H Calcium (test code = 57856-4) 8.6 mg/dL 8.8-10.2 L Protein (test code = 2885-2) 5.9 g/dL 6.3-8.3 L -[place] 4.6- 7.0 g/dL1 week 4.4-7.6 g/dL7 months-1year 5.1-7.3 g/dL1-2 years 5.6-7.5 g/dL>3 years 6.0-8.0 g/yK72-151 6.3-8.3 g/dL Albumin (test code = 1751-7) 2.1 g/dL 3.5-5 L A/G ratio (test code = 1759-0) 0.6 0.7-3.8 L Alkaline phosphatase (test code = 6768-6) 321 U/L 35-104 H AST (test code = 1920-8) 22 U/L 10-35 ALT (test code = 1742-6) 21 U/L 5-50 Total bilirubin (test code = 1974-2) 0.6 mg/dL 0-1.2 Lab Interpretation (test code = 14135-8) Abnormal [place] MethodistBlood culture, aerobic & azenpjofx8364-77-81 03:03:06* Test Item Value Reference Range Interpretation Comments Blood culture isolate (test code = 600-7) No growth after 5 days of incubation. Specimen InformationSpecimen Source: BloodSpecimen Site: Hand, right [place] MethodistArterial blood ecp1997-65-11 07:15:47* Test Item Value Reference Range Interpretation Comments pH, arterial (test code = 2744-1) 7.47 7.35-7.45 H pCO2, arterial (test code = 2019-8) 37 35- 45 mmHg Specimen received with air bubble in syringe. Interpret results accordingly. pO2, arterial (test code = 2703-7) 184 80- 90 mmHg H Bicarbonate, arterial (test code = 1960-4) 26.4 mmol/L 21-28 Base excess, arterial (test code = 1925-7) 3 -2 - 2 mEq- L H O2 saturation, arterial (test code = 2708-6) 100 % 95-100 Lab Interpretation (test code = 66371-3) Abnormal [place] MethodistPrealbumin rxmfi5080-15-36 03:32:22* Test Item Value Reference Range Interpretation Comments Prealbumin (test code = 6793-4) 15 mg/dL 16-32 L Lab Interpretation (test code = 27175-9) Abnormal [place] MethodistPartial thromboplastin time, msmztddyw6991-65-49 03:22:34* Test Item Value Reference Range Interpretation Comments PTT (test code = 29208-9) 37.1 23.0- 36.0 sec H PTT therapeutic range for unfractionated heparin is61.0-112.0 seconds which corresponds to Anti-Xa0.3-0.7 U/ml. Lab Interpretation (test code = 08385-0) Abnormal [place] MethodistCytology (non-gynecological) nzisccc9604-65-79 16:40:23* Test Item Value Reference Range Interpretation Comments Case number (test code = [id number]) [id number] Cytology (non-gynecological) report (test code = 1178) See link below for PDF Lab Report Result status (test code = 0684873) This is Final Report for [id number] [place] MethodistCT Chest Wo Souxutte8049-58-28 11:31:21Hm Interface, Radiology Results Incoming - 12/09/2019 11:34 AM CDTEXAMINATION: CT CHEST WO CONTRASTCLINICAL HISTORY: 69 years Female rule out post-op hematomaTECHNIQUE: Multiple axial images of the chest were obtained without intravenous contrast. Sagittal and coronal computerized reformatted images were also obtained. CT imaging was performed with iterative reconstruction techniques and/or automated exposure control to reduce radiation dose. COMPARISON:10/16/2019IMPRESSION:Lungs and airways: There are patchy bibasilar atelectatic changes bilaterally. Minimal linear atelectasis is present in the right upper lobe. Tracheostomy tube is in satisfactory position. A small amount of debris is noted in the right mainstem bronchus. Pleura: There are small bilateral pleural effusions. The left-sided chest tube has been removed since the previous study. Posterior right-sided c hest tube has been placed since the previous study. There is a small amount of l oculated fluid in the superior aspect of the right major fissure. No evidence of pneumothorax.Mediastinum and lymph nodes: Multiple small mediastinal lymph nodes are present likely reactive. Small axillary lymph nodes are also noted. Postop erative changes related to total esophagectomy are present. Surgical drains over lie the thoracic inlet. There is no evidence of hematoma.Cardiovascular: The hea rt size is slightly enlarged. Minimal coronary calcifications. The thoracic aort a is atherosclerotic without evidence of aneurysm.Upper abdomen: Gastrostomy tub e is present.Bones: There are fractures of the posterior right sixth and seventh ribs that have developed since the prior study. There are postoperative changes related to partial resection of the posterior left seventh rib. A fracture of t he posterior eighth rib is noted. Other: Postsurgical soft tissue defects are no concha along the posterior left chest wall with associated packing. A small amount of subcutaneous emphysema along the posterior right chest wall.SUMMARY:1.Status post total esophagectomy. Surgical drains and chest tube in place. No evidence o f hematoma.2.Small bilateral pleural effusions with bibasilar atelectasis.3.Post erior right sixth and seventh rib fractures. Postsurgical changes posterior left seventh rib with overlying soft tissue defect. Fracture posterior eighth rib. [id number] MethodistCT Soft Tissue Neck Wo Ziyfaehq1451-01-85 11:17:54 Interface, Radiology Results 12/09/2019 11:21 AM CDTEXAMINATION: C T SOFT TISSUE NECK WO CONTRASTCLINICAL HISTORY: possible post-op hematomaCOMPARI SON: NoneTECHNIQUE: Noncontrast enhanced imaging through the neck was performed from the upper chest through the skull base with coronal and sagittal reconstru cted images. CT imaging was performed with iterative reconstruction technique a nd/or automated exposure control to reduce radiation dose.FINDINGS: There is tub ing extending into the upper esophagus compatible with the recent divergent afte r esophageal ligation in the setting of esophageal perforation. There is an endo tracheal tube. There is another drainage catheter in the left-sided paraesophage al space. There is extensive soft tissue thickening, blood products, air involvi ng the left greater than right inferior neck, superior mediastinum, with small e ffusion on the right and moderate effusion on the left that is slightly hyperden se suggesting hemorrhagic effusion.There is a rightward deviation of the airway including the larynx and the subglottic airway however the patient is intubated with secure airway without evidence of airway compromise.The nasopharynx has sma ll retained fluid. Grossly the oropharynx, oral cavity, hypopharynx, laryngeal s tructures, bilateral parotid and submandibular glands are maintained, within judge itations of a noncontrast study.A right-sided chest tube is seen. There is small right soft tissue emphysema. There is moderate amount of air seen in the left i nferior paramedian neck from recent procedure.IMPRESSION: Expected postoperative changes described above in the setting of esophageal ligation for management of esophageal perforation. Diffuse neck soft tissue edema/blood products and scatt ered areas of air, expected in the recent postoperative setting without a discre te encapsulated fluid collection.Findings were discussed with critical care atte nding at 12/09/2019 11:12 AM who verbalized understanding.[id number] Clarence Willis gvoreli3031-53-35 08:25:39* Test Item Value Reference Range Interpretation Comments Urine culture isolate (test code = 26635-4) No growth after 24 hour s Specimen InformationSpecimen Source: UrineSpecimen [facility] venous lower rorijbfdm2920-54-94 18:47:00Interface, Radiology Results In - 12/08/2019 6:48 PM CDT Vascular Ultrasound Laboratory Lower Extremity Venous Report [id number] [place] [address] Pat.Name: EMILY BAUER Pat.ID: [id number] St.Date: 12/08/2019 Refer.MD: JIMENEZ CARR MD Exam Time: 2:25:00 PM Study Type:LE Venous Height: 66in Weight: 130lb BSA: 1.67 m2 Age: 9 1950,69Y Sex: FEMALE Sonogrphr: Viki Brown RVT Pat. Stat.:[facility] Room: [address] Tape Vol: JJ, CPT - 4: 32765 Echo Event ID:[id number] Order ID: [id number] Reason for Study:Evaluation for DVT.Procedure s: Colorflow, Grayscale/2D, Pulsed wave DopplerRace: C SUMMARY: --Deep Veins Superficial Veins* Normal Reflux Criteria: < 1 second * Normal RefluxCriteria: < 0.5 seconds * Abnormal Reflux Criteria: > or equal to 1 second * Abnormal RefluxCriteria: > or equal to 0.5 seconds DUPLEX SCAN OBSERVATIONS Deep Veins Superficial Veins Right Left Right LeftEIV GSV (prox) Normal NormalCFV Normal Normal (above knee)Femoral Normal Normal GSV (dist) Normal NormalProfunda Normal Normal (below knee)Popliteal Normal NormalPT (prox) Normal Normal SSV Normal NormalPT (dist) Normal Normal Peroneal Normal Normal Gastrocs Not Visualized Not VisualizedRIG HT: The mid segment of the femoral vein is not visualized due tothe presence of a catheter and dressing. There is normalcompressibility with no evidence of ec hogenic material noted withinthe lumen of the visualized veins. Colorflow and Do ppler signals arepulsatile.LEFT: There is normal compressibility with no evidenc e of echogenicmaterial noted within the lumen of the visualized veins. Colorflow andDoppler signals are pulsatile. PRELIMINARY FINDINGS:1. No evidence of judi ous thrombosis of visualized veins.2. Doppler waveforms are pulsatile.PHYSICIAN INTERPRETATION: Venous examination of the both lower extremities demonstrated no evidence of venous thrombosis in the visualized veins. Normalcompressibility an d augmentation of all veins visualized.Volume overload. FINDINGS: Signed 12/08/2019 06:47 Reanna Glasgow MD, [facility] MethodistUrinalysis screen and microscopy, with reflex to acgfcga3698-17-55 00:21:12* Test Item Value Reference Range Interpretation Comments Specimen site (test code = 1310556) [place] Color, UA (test code = 5778-6) Straw Appearance, UA (test code = 5767-9) Clear Specific gravity, UA (test code = 5811-5) 1.006 1.001-1.035 pH, UA (test code = 5803-2) 5.0 5.0-8.5 Protein, UA (test code = 00515-0) Negative Negative Glucose, UA (test code = 92616-1) Negative Negative Ketones, UA (test code = 2514-8) Negative Negative Bilirubin, UA (test code = 5770-3) Negative Negative Blood, UA (test code = 5794-3) Moderate Negative A Nitrite, UA (test code = 5802-4) Negative Negative Urobilinogen, UA (test code = 20411-1) <2.0 <2.0 Leukocyte esterase, UA (test code = 5799-2) Small Negative A Epithelial cells, UA (test code = 5787-7) <1 /HPF WBC, UA (test code = 5821-4) 5 0- 4 /HPF H RBC, UA (test code = 93891-6) 3 0- 5 /HPF Bacteria, UA (test code = 24992-4) Few None seen Yeast, UA (test code = 34391-2) None seen Yeast with pseudohyphae, UA (test code = 76751-6) None seen Hyaline casts, UA (test code = 5796-8) 1 /LPF Lab Interpretation (test code = 18339-1) Abnormal [place] MethodistLactic acid gdezn1228-04-74 22:37:04* Test Item Value Reference Range Interpretation Comments Lactic acid (test code = 73565-6) 1.2 mmol/L 0.5-2.2 [place] MethodistPrepare fresh frozen krkgkm1178-28-03 22:36:00* Test Item Value Reference Range Interpretation Comments Product name (test code = 25) Thawed Plasma Unit number (test code = 6011549) [id number] Product code (test code = 3092) [id number] Dispense status (test code = 24) Returned to not transfused Blood expiration date (test code = 302) [id number] Blood type code (test code = 378) 2730 Blood type (test code = 1314) AB POSITIVE Compatibility (test code = 6400) Not required [place] MethodistIonized calcium, uvhayuqc9279-15-74 22:03:33* Test Item Value Reference Range Interpretation Comments Ionized calcium, arterial (test code = 06452-2) 1.14 mmol/L 1.11-1 .32 [place] TcsquekflXequtmwqit1200-84-80 20:01:24* Test Item Value Reference Range Interpretation Comments Fibrinogen (test code = 23229-1) 516 mg/dL 200-450 H Lab Interpretation (test code = 11358-2) Abnormal [place] UfvhjgimiHpicanetna4371-77-53 19:50:46* Test Item Value Reference Range Interpretation Comments HCT (test code = 4544-3) 31.4 % 37-47 L Lab Interpretation (test code = 06953-3) Abnormal [place] MethodistPlatelet rqmze4997-20-28 19:50:46* Test Item Value Reference Range Interpretation Comments Platelet count (test code = 57428-8) 326 150- 400 k/uL [place] MethodistArterial blood gas, uctsfsnjs6208-98-00 19:48:20* Test Item Value Reference Range Interpretation Comments pH, arterial (test code = 2744-1) 7.39 7.35-7.45 pCO2, arterial (test code = 2019-8) 41 35- 45 mmHg pO2, arterial (test code = 2703-7) 257 80- 90 mmHg H Temperature, Celsius (test code = 8310-5) 35.7 Degrees C O2 saturation, arterial (test code = 2708-6) 100 % 95-100 pH, arterial corrected (test code = 97114-4) 7.41 pCO2, arterial corrected (test code = 96495-5) 38 mmHg pO2, arterial corrected (test code = 55245-4) 252 mmHg Base excess, arterial (test code = 1925-7) 0 -2 - 2 mEq- L Lab Interpretation (test code = 36211-3) Abnormal [place] MethodistGlucose level, titnoev0764-55-50 19:48:20* Test Item Value Reference Range Interpretation Comments Glucose, syringe (test code = 2345-7) 122 mg/dL 65-99 H Lab Interpretation (test code = 80331-9) Abnormal [place] MethodistHemoglobin, zsbphps7922-83-10 19:48:20* Test Item Value Reference Range Interpretation Comments Hemoglobin, syringe (test code = 718-7) 10.4 g/dL 12-16 L Lab Interpretation (test code = 67236-9) Abnormal [place] MethodistLactic acid, isosozw4859-28-23 19:48:20* Test Item Value Reference Range Interpretation Comments Lactic acid, syringe (test code = 72789-7) 0.8 mmol/L 0.5-2.2 [place] MethodistPotassium, oqdnsyw8191-97-80 19:48:20* Test Item Value Reference Range Interpretation Comments Potassium, syringe (test code = 2007) 4.9 3.5- 5.0 mEq/L [place] MethodistSodium level, qfwanou3201-72-16 19:48:20* Test Item Value Reference Range Interpretation Comments Sodium, syringe (test code = 2947-0) 134 135- 148 mEq/L L Lab Interpretation (test code = 68219-3) Abnormal [place] VouvassuuPcudta5954-48-91 17:55:27Marjan Mcguire 2019 5:56 PMAirwayDate/Time: 2019 5:46 PMPerformed by: Marjan Mcguirezed by: Anant Beebe MD Location: ORUrgency: ElectiveDifficult Airway: No Anesthesiologist: Bruna Serra MDResident/PARK SUPERINTENDENT/AA: Marjan McguireuPerformed by: resident/PARK SUPERINTENDENT/AAPreoxygenated with 100% O2: Yes C-spine Precautions Maintained Throughout: Yes Mask Ventilation: Not attemptedFinal Airway Type: Endotracheal airwayFinal Endotracheal Airway: ETTCuffed: Yes Technique Used: Video laryngoscopyDevices/Methods Used in Placement: Cook tube exchangerInsertion Site: OralBlade type: Glidescope Laryngoscope Blade/Videolaryngoscope Blade Size: 3ETT Size (mm): 8.0Cuff at minimum occlusion pressure: Yes Measured from: LipsETT to Lips (cm): 22Placement Verified by: CO2 detection and equal breath sounds Laryngoscopic view: Grade I - full view of glottisRapid Sequence Induction (RSI): No Consuelo fied RSI: No Number of Attempts at Approach: 1 JASON switched over to 8.0 SLT (2 /2 bronschoscopy/EGD needed by surgeon) x1 attempt without complications. [place] MethodistArterial rrup6350-23-23 17:52:07Marjan Mcguire 2019 5:54 PMArterial linePerformed by: Marjan Mcguireuthorized by: Anant Beebe MD Patient Location: ORStart Time: 2019 4:55 PMEnd Time: 2019 5:20 PMStaff: Anesthesiologist: Anant Beebe MD Resident/PARK SUPERINTENDENT/AA: Marjan Mcguire Other Staff: Bruna Serra MD Performed by: Other staffPre-procedure: patient identified, IV checked, site and side verified, risks and benefits discussed, procedure verified, surgical consent complete, patient position confirmed, monitors and e quipment checked, pre-op evaluation complete and timeout performed prior to proc edure MSBT: antiseptic used, all elements of maximal sterile barrier technique followed, hand hygiene performed, cap/gown used by other personnel and solutions labeled Indications: Indications: multiple ABGs and hemodynamic monitoring Anesthesia: Anesthesia: GeneralProcedure Details: Arterial Line placement: Placed post induction Line placement site: BrachialLine placement side: Left Arterial line gauge: 20 GNumber of attempts: 5 or more Ultrasound guidance used: Yes Post-procedure: Post-procedure: Sterile dressing applied and line sutured Post procedure circulation, sensation, movement: Unchanged Patient to lerance: Patient tolerated the procedure well with no immediate complicationsNo brandon: Attempt by attending anesthesiologist x2 to thread wire through current R axillary and also to place new one without success- unable to thread. Attempt by PARK SUPERINTENDENT x1 to L radial, +pulsatile blood flow but unable to thread. Attempt by 2 nd attending anesthesiologist to L axillary x2 with initial difficulty threading wire despite pulsatile blood flow. Ultrasound used for all attempts.[place] MethodistArterial hkjx3468-21-96 08:36:42Anna Hale MD 2019 8:37 AMArterial linePerformed by: Anna Hale MDAuthorized by: Anant Beebe MD Patient Location: ORStaff: Anesthesiologist: Anant Beebe MD Performed by: AnesthesiologistPre-procedure: patient identified, IV checked, site and side verified, risks and benefits discussed, procedure verified, surgical consent complete, patient position confirmed, monitors and equipment checked, pre-op evaluation complete and timeout performed prior to procedure MSBT: antiseptic used, all elements of maximal sterile barrier technique followed, hand hygiene performed, cap/gown used by other personnel and solutions labeled Indications: Indications: multiple ABGs and hemodynamic monitoring Anesthesia: Anesthesia: GeneralProcedure Details: Arterial Line placement: Placed post induction Line placement site: AxillaryLine placement side: Right Arterial line gauge: 20 GNumber of attempts: 2 Ultrasound guidance used: Yes Post-procedure: Post-procedure: Line sutured Post procedure circulation, sensation, movement: Normal Patient tolerance: Patient tolerated the procedure well with no immediate complications[place] KbvlbapnkNxjrod3405-08-78 08:35:38Anna Hale MD 2019 8:38 AMAirwayPerformed by: Anna Hale MDAuthorized by: Anant Beebe MD Location: ORUrgency: ElectiveDifficult Airway: No Preoxygenated with 100% O2: Yes C-spine Precautions Maintained Throughout: Yes Mask Ventilation: Easy maskFinal Airway Type: Endotracheal airwayFinal Endotracheal Airway: ETT - double lumen leftCuffed: Yes Technique Used: Direct laryngoscopyDevices/Methods Used in Placement: Intubating styletInsertion Site: OralBlade Type: MacintoshLaryngoscope Blade/Videolaryngoscope Blade Size: 3ETT Double Lumen (fr): 39Cuff at minimum occlusion pressure: Yes Measured from: LipsPlacement Verified by: CO2 detection, direct visualization and fiber optic visualization Laryngoscopic view: Grade IIa - partial view of glottisRapid Sequence Induction (RSI): No Modified RSI: No Number of Attempts at Approach: 1 Right Radial attempt unsuccessful, small caliber artery.Clarence HanksCOVID-19 qualitative MJD3144-06-26 20:09:14* Test Item Value Reference Range Interpretation Comments Interpretation (test code = 8720018) Negative results do not preclude 2019-nCoV infection and should not be used as the sole basis for treatment or other patient management decisions. Negative results must be combined with clinical observations, patient history, and epidemiological information. COVID-19 qualitative PCR result (test code = 34946-3) Not-Detect ed Not-Detected COVID-19 qualitative PCR (test code = 7070) See link below for P DF Lab Report Clarence HanksT4, evdf6462-00-75 16:13:19* Test Item Value Reference Range Interpretation Comments T4, free (test code = 3024-7) 1.2 ng/dL 0.9-1.7 Clarence HanksThyroid stimulating sdodvtt8565-73-04 16:13:19* Test Item Value Reference Range Interpretation Comments TSH (test code = 3016-3) 22.93 0.27- 4.20 uIU/mL H Lab Interpretation (test code = 29779-9) Abnormal Clarence HanksIR G Tube Exchange/Wtloron7664-94-49 16:54:17Hm Interface, Radiology Results - 11/26/2019 4:57 PM CDTPerforming Radiologist: Temo Alexis MDAssistants: NoneAnesthesia Type: Lidocaine 1% was used for local anesthetic. Moderate sedation was administered by the procedure nurse and monitored by the procedure physician for total mqac-wl-xivp sedation time of 14 minutes.Pre Procedure Diagnosis: Clogged gastrostomy catheterPost Procedure Diagnosis: Status post gastrostomy catheter exchangeProcedure: Gastrostomy marion ter exchangeTechnique: Written informed consent was obtained prior to the proced ure. The patient was placed in a supine position on the procedure table. The upp er abdomen and indwelling gastrostomy catheter were sterilely prepared and drape d in the routine manner. Lidocaine 1% was used for local anesthetic. A stiff 0.0 35 inch Amplatz wire was advanced through the indwelling gastrostomy catheter an d into the gastric lumen under fluoroscopy. The retention balloon of the indwell ing gastrostomy catheter was then deflated. This catheter was removed over the g uidewire, and a new, larger 18-Prydeinig RUBEN gastrostomy catheter was then placed o sarah the guidewire. The retention balloon was inflated with 7 mL of sterile water . Contrast injected through this newly placed gastrostomy catheter confirmed romero ropriate catheter tip position within the gastric lumen with opacification of ru gal folds. The patient tolerated the procedure wellRadiation Dose:Ka,r = 94 mGyC omplications: NoneSpecimens Removed: NoneEstimated Blood Loss: Less than 1 mLBlo od/Blood Products Administered: NoneGrafts/Implants: As described in the above r eport.Impression: Successful exchange of a clogged gastrostomy catheter for a ne w 18-Prydeinig RUBEN gastrostomy catheter, as detailed above. This catheter is ready for use.[facility]-[id number] MethodistAFB kfdfjwy0976-07-44 00:14:04* Test Item Value Reference Range Interpretation Comments AFB culture isolate (test code = 543-9) No growth after 6 we eks of incubation. Specimen InformationSpecimen Source: TissueSpecimen Site: Lung: Left chest wall skin B Clarence Haleyng cdfgzwn4290-24-16 00:15:43* Test Item Value Reference Range Interpretation Comments Fungus culture isolate (test code = 1441) No growth af ter 4 weeks of incubation. Specimen Information Specimen Source: TissueSpecimen Site: Lung: Left chest wall skin B Clarence MethodistAlbumin [id number] 18:07:04* Test Item Value Reference Range Interpretation Comments Albumin (test code = 1751-7) 2.1 g/dL 3.5-5 L Lab Interpretation (test code = 29525-6) Abnormal Clarence MethodistXR Picc Chest Mttkjfzo0837-84-09 14:15:23Hm Interface, Radiology Results 11/05/2019 2:18 PM CDTEXAMINATION: XR PICC CHEST PORTABLECLINICAL HISTORY: 68 years Female A41.9 Sepsis unspecified organism, R65.20 Severe sepsis without septic shock, TPNCOMPARISON: October 22 4IMPRESSION:Cardiomediastinal silhouette is unchanged. Diffuse airspace disease throughout the lungs, unchanged Age related changes in the osseous structures.A PICC line has been placed in the left upper extremity. It terminates in the supe rior vena cava. There is no pneumothorax, other support lines unchanged. [place] MethodistPICC rrwmezsxm8978-32-79 12:48:37Kelly Gonzalez RN 11/05/2019 12:52 PMPICC insertionDate/Time: 11/05/2019 12:48 PMPerformed by: Scarlett Weldon, RNAuthorized by: Luke Sparks MD Consent: Consent obtained: Verbal and written Consent given by: Patient Risks discussed: arterial puncture, incorrect placement, nerve damage, bleeding, infection, superficial thrombus and deep vein thrombus Alternatives discussed: Alternative treatment, delayed treatment and no treatmentUniversal protocol: Procedure explained and questions answered to patient or proxy's satisfaction: yes Relevant documents present and verified: yes Test results available and properly labeled: yes Imaging studies available: yes Required blood products, implants, devices, and special equipment available: yes Site/side marked: yes Immediately prior to procedure, a time out was called: yes Patient identity confirmed: Verbally with patient, arm band and hospital-assigned identification numberPre- procedure details: Hand hygiene: Hand hygiene performed prior to insertion Sterile barrier technique: All elements of maximal sterile technique followed Skin preparation: ChloraPrep Skin preparation agent: Skin preparation agent completely dried prior to procedure Anesthesia (see MAR for exact dosages): Anesthesia method: Local infiltration Local anesthetic: Lidocaine 1% w/o epi Route of administration: SubcutaneousLine Placement Details: Patient pos ition: Flat Vessel Size (mm): 3.3. Indication: TPN Location: Left basilic Device Type: Non-valved Catheter size: 4 Fr Catheter to vein ratio: 44% Line Characteristics: Catheter Brand: Disruptor Beam PowerPICC Provena External Cath eter Length (cm): 0 Internal Catheter Length (cm): 40 Total Catheter Length (cm): 40 Catheter Lot Number: [id number] Catheter Expiration Date: 08/21/2020 rocedure Details: Landmarks identified: yes Ultrasound guidance: yes Jordan rile ultrasound techniques: Sterile gel and sterile probe covers were used Nu mber of attempts: 1 Number of PICC kits used during procedure: 1 Purpose of procedure: PICC Placement Successful PICC Placement: Yes Patency/Placement: Flushes without difficulty, flushed with 10 mL normal saline, x-ray placement verified, positive blood return and injection cap placed PICC placed utlizing u ltrasound-guided Modified Seldinger Technique: Yes Dressing/Securement: Cath eter securement device and antimicrobial dressing applied Blood Loss Amount: L ess than 20 mLPost-Procedure Details: Post-procedure: Dressing applied Tip p lacement confirmed by chest x-ray: Yes Patient tolerance of procedure: Neeraj ated well, no immediate complicationsHouston MethodistIonized uuljgvm0303-13-08 05:07:18* Test Item Value Reference Range Interpretation Comments pH (test code = 2753-2) 7.59 Ionized calcium (test code = 1995-0) 1.08 mmol/L 1.11-1.32 L Lab Interpretation (test code = 34316-4) Abnormal Clarence FuistMidline Unsuccessful Fxljguj7148-60-82 15:38:33Kelly Gonzalez RN 11/04/2019 3:39 PMMidline Unsuccessful AttemptDate/Time: 11/04/2019 3:38 PMPerformed by: Scarlett Weldon, RNAuthorized by: Luke Sparks MD Consent: Consent obtained: Verbal Consent given by: Patient Risks discussed: arterial puncture, incorrect placement, nerve damage, bleeding, superficial thrombus, deep vein thrombus and infection Alternatives discussed: Delayed treatment, no treatment and alternative treatmentUniversal protocol: Procedure explained and questions answered to patient or proxy's satisfaction: yes Relevant documents present and verified: yes Test results available and properly labeled: yes Imaging studies available: yes Required blood products, implants, devices, and special equipment available: yes Site/side marked: yes Immediately prior to procedure, a time out was called: yes Patient identity confirmed: Verbally with patient, arm band and hospital-assigned identification numberPre- procedure details: Hand hygiene: Hand hygiene performed prior to insertion Sterile barrier technique: All elements of maximal sterile technique followed Skin preparation: ChloraPrep Skin preparation agent: Skin preparation agent completely dried prior to procedure Anesthesia (see MAR for exact dosages): Anesthesia method: Local infiltration Local anesthetic: Lidocaine 1% w/o epi Route of administration: SubcutaneousUnsuccessful Attempt(s): Successful PICC Placement: Yes Location(s) Attempted: Right brachial and Right basilic Number of attempts: 1 Problems or complications: Unable to advance PICCPro cedure details: Landmarks identified: yes Ultrasound guidance: yes Madeleine alexandra ultrasound techniques: Sterile gel and sterile probe covers were used Bloo d Loss Amount: Less than 20 mLPost-procedure details: Post-procedure: Dressi ng applied Patient tolerance of procedure: Tolerated well, no immediate compli cations Number of PICC kits used during procedure: 1[place] [facility] Unsuccessful Attempt - [id number] 15:36:01Kelly Gonzalez RN 11/04/2019 3:38 PMUnsuccessful Attempt - PICCDate/Time: 11/04/2019 3:36 PMPerformed by: Scarlett Weldon, RNAuthorized by: Luke Sparks MD Consent: Consent obtained: Verbal and written Consent given by: Patient Risks discussed: arterial puncture, incorrect placement, nerve damage, bleeding, infection, superficial thrombus and deep vein thrombus Alternatives discussed: Alternative treatment, delayed treatment and no treatmentUniversal protocol: Procedure explained and questions answered to patient or proxy's satisfaction: yes Relevant documents present and verified: yes Test results available and properly labeled: yes Imaging studies available: yes Required blood products, implants, devices, and special equipment available: yes Site/side marked: yes Immediately prior to procedure, a time out was called: yes Patient identity confirmed: Verbally with patient, arm band and hospital-assigned identification numberPre- procedure details: Hand hygiene: Hand hygiene performed prior to insertion Sterile barrier technique: All elements of maximal sterile technique followed Skin preparation: ChloraPrep Skin preparation agent: Skin preparation agent completely dried prior to procedure Anesthesia (see MAR for exact dosages): Anesthesia method: Local infiltration Local anesthetic: Lidocaine 1% w/o epi Route of administration: SubcutaneousUnsuccessful Attempt(s): Successful placement: No Location(s) Attempted: Right brachial and Right basilic Number of attempts: 2 Problems or complications: Unable to advance PI CCProcedure details: Landmarks identified: yes Ultrasound guidance: yes Sterile ultrasound techniques: Sterile gel and sterile probe covers were used Blood Loss Amount: Less than 20 mLPost-procedure details: Post-procedure: D ressing applied Patient tolerance of procedure: Tolerated well, no immediate c omplications Number of PICC kits used during procedure: 1Comments: Attempte d to place picc. Tried right brachial and right basilic vein but picc would not pass past axillary area. Then attempted midline placement but was unsuccessful. Patient is right arm onlyP[place]sfield MethodistHepatic function fylwk1509-90-81 07:51:47* Test Item Value Reference Range Interpretation Comments Albumin (test code = 1751-7) 2.1 g/dL 3.5-5 L Total bilirubin (test code = 1974-2) 0.9 mg/dL 0-1.2 Bilirubin direct (test code = 1967-7) 0.5 mg/dL 0-0.3 H Alkaline phosphatase (test code = 6768-6) 347 U/L 35-104 H Protein (test code = 2885-2) 6.8 g/dL 6.3-8.3 -[place] 4.6- 7.0 g/dL1 week 4.4-7.6 g/dL7 months-1year 5.1-7.3 g/dL1-2 years 5.6-7.5 g/dL>3 years 6.0-8.0 g/yB53-793 6.3-8.3 g/dL ALT (test code = 1742-6) 16 U/L 5-50 AST (test code = 1920-8) 40 U/L 10-35 H HALLIE (test code = HALLIE) Liver added and read back to Ping Elam in [id number] 11/04/2019 07:09 LMID. Lab Interpretation (test code = 10015-4) Abnormal [place] MethodistPotassium [id number] 15:48:17* Test Item Value Reference Range Interpretation Comments Potassium (test code = 2823-3) 3.6 3.5- 5.0 mEq/L Clarence NertuethcGpgyzi4993-85-45 14:55:05Elijah Jenkins CRNA 11/01/2019 2:56 PMAirwayDate/Time: 11/01/2019 2:26 AMPerformed by: Elijah Jenkins CRNAAuthorized by: Shira Woods MD Location: ORUrgency: ElectiveDifficult Airway: No Anesthesiologist: Shira Woods, SABINAesident/PARK SUPERINTENDENT/AA: Elijah Jenkins CRNAPerformed by: resident/FREIDA /AAPreoxygenated with 100% O2: Yes C-spine Precautions Maintained Throughout: Y es Mask Ventilation: Not attemptedFinal Airway Type: Surgical airwayFinal Mihai gical Airway comment: Existing tracheostomyNumber of Attempts at Approach: 1 [place] MethodistMiscellaneous referral fezo5176-77-72 16:58:17* Test Item Value Reference Range Interpretation Comments [facility] test name (test code = 2566) ?5-Oxoproline in urine sample [facility] test result (test code = 1730) see note Amino Acids Quantitative by LC- MS/MS, Urine [facility] test code [id number] Creatinine, Urine 51 mg/dL - - - - - - - - - - - - - - - - - - - - - - - - - - - - - - Amino Acids, Urine Interpretation See Note Non-specific elevation of several amino acids. If a metabolic disorder is a clinical concern, would evaluate plasma amino acids. REFERENCE INTERVAL: Amino Acids, Urine Interpretation Test developed and characteristics determined by [employer]. See Compliance Statement B: [employer]/CS - - - - - - - - - - - - - - - - - - - - - - - - - - - - - - Alpha-amino butyric acid, Urine <10 umol/g CADDIE (Ref Interval: <=25) - - - - - - - - - - - - - - - - - - - - - - - - - - - - - - Alpha-aminoadipic acid, Urine 79 umol/g CADDIE (Ref Interval: <=100) - - - - - - - - - - - - - - - - - - - - - - - - - - - - - - Alanine, Urine 677 umol/g CADDIE high (Ref Interval: 60-500) - - - - - - - - - - - - - - - - - - - - - - - - - - - - - - Anserine, Urine <25 umol/g CADDIE (Ref Interval: <=250) - - - - - - - - - - - - - - - - - - - - - - - - - - - - - - Arginine, Urine 59 umol/g CADDIE (Ref Interval: <=100) - - - - - - - - - - - - - - - - - - - - - - - - - - - - - - Argininosuccinic Acid, Urine 12 umol/g CADDIE (Ref Interval: <=40) - - - - - - - - - - - - - - - - - - - - - - - - - - - - - - Asparagine, Urine 108 umol/g CADDIE (Ref Interval: 25-180) - - - - - - - - - - - - - - - - - - - - - - - - - - - - - - Aspartic Acid, Urine <25 umol/g CADDIE (Ref Interval: <=25) - - - - - - - - - - - - - - - - - - - - - - - - - - - - - - Beta-amino isobutyric acid, Urine 27 umol/g CADDIE (Ref Interval: <=1200) - - - - - - - - - - - - - - - - - - - - - - - - - - - - - - Beta-alanine Urine <125 umol/g CADDIE (Ref Interval: <=125) - - - - - - - - - - - - - - - - - - - - - - - - - - - - - - Citrulline, Urine <5 umol/g CADDIE (Ref Interval: <=15) - - - - - - - - - - - - - - - - - - - - - - - - - - - - - - Cystathionine, Urine 138 umol/g CADDIE high (Ref Interval: <=60) - - - - - - - - - - - - - - - - - - - - - - - - - - - - - - Cystine, Urine 93 umol/g CADDIE (Ref Interval: <=150) - - - - - - - - - - - - - - - - - - - - - - - - - - - - - - Ethanolamine, Urine 1092 umol/g CADDIE high (Ref Interval: 100-510) - - - - - - - - - - - - - - - - - - - - - - - - - - - - - - Gamma-amino butyric acid, Urine <25 umol/g CADDIE (Ref Interval: <=25) - - - - - - - - - - - - - - - - - - - - - - - - - - - - - - Glutamic Acid, Urine 42 umol/g CADDIE (Ref Interval: <=52) - - - - - - - - - - - - - - - - - - - - - - - - - - - - - - Glutamine, Urine 643 umol/g CADDIE (Ref Interval: 100-665) - - - - - - - - - - - - - - - - - - - - - - - - - - - - - - Glycine, Urine 921 umol/g CADDIE (Ref Interval: 230-3510) - - - - - - - - - - - - - - - - - - - - - - - - - - - - - - Histidine, Urine 727 umol/g CADDIE (Ref Interval: 80-1130) - - - - - - - - - - - - - - - - - - - - - - - - - - - - - - Homocitrulline, Urine 26 umol/g CADDIE (Ref Interval: <=40) - - - - - - - - - - - - - - - - - - - - - - - - - - - - - - Hydroxylysine, Urine 26 umol/g CADDIE (Ref Interval: <=30) - - - - - - - - - - - - - - - - - - - - - - - - - - - - - - Hydroxyproline, Urine <10 umol/g CADDIE (Ref Interval: <=30) - - - - - - - - - - - - - - - - - - - - - - - - - - - - - - Isoleucine, Urine 30 umol/g CADDIE (Ref Interval: <=45) - - - - - - - - - - - - - - - - - - - - - - - - - - - - - - Leucine, Urine 72 umol/g CADDIE high (Ref Interval: <=45) - - - - - - - - - - - - - - - - - - - - - - - - - - - - - - Lysine, Urine 245 umol/g CADDIE (Ref Interval: <=355) - - - - - - - - - - - - - - - - - - - - - - - - - - - - - - Methionine, Urine 50 umol/g CADDIE high (Ref Interval: <=20) - - - - - - - - - - - - - - - - - - - - - - - - - - - - - - Ornithine, Urine 55 umol/g CADDIE high (Ref Interval: <=30) - - - - - - - - - - - - - - - - - - - - - - - - - - - - - - Phenylalanine, Urine 203 umol/g CADDIE high (Ref Interval: 15-85) - - - - - - - - - - - - - - - - - - - - - - - - - - - - - - Proline, Urine 24 umol/g CADDIE (Ref Interval: <=35) - - - - - - - - - - - - - - - - - - - - - - - - - - - - - - Sarcosine, Urine <25 umol/g CADDIE (Ref Interval: <=25) - - - - - - - - - - - - - - - - - - - - - - - - - - - - - - Serine, Urine 858 umol/g CADDIE high (Ref Interval: 90-470) - - - - - - - - - - - - - - - - - - - - - - - - - - - - - - Taurine, Urine 45 umol/g CADDIE (Ref Interval: <=3200) - - - - - - - - - - - - - - - - - - - - - - - - - - - - - - Threonine, Urine 203 umol/g CADDIE (Ref Interval: 25-250) - - - - - - - - - - - - - - - - - - - - - - - - - - - - - - Tryptophan, Urine 161 umol/g CADDIE high (Ref Interval: 15-95) - - - - - - - - - - - - - - - - - - - - - - - - - - - - - - Tyrosine, Urine 101 umol/g CADDIE (Ref Interval: 15-150) - - - - - - - - - - - - - - - - - - - - - - - - - - - - - - Valine, Urine 95 umol/g CADDIE high (Ref Interval: <=55) Test performed by:[employer] [place] [id number] [place] MethodistSodium ttpsp2643-96-02 15:59:46* Test Item Value Reference Range Interpretation Comments Sodium (test code = 2951-2) 133 135- 148 mEq/L L Lab Interpretation (test code = 83053-4) Abnormal [place] MethodistThyroperoxidase osindfox6628-53-77 02:22:49* Test Item Value Reference Range Interpretation Comments Thyroperoxidase Ab (test code = 68191-7) 1.0 0.0- 9.0 IU/m L [place] TaaajvwiwVrveoommalpsxh0829-01-55 02:22:35* Test Item Value Reference Range Interpretation Comments Erythropoietin (test code = 34159-6) 467.2 2.6- 18.5 mIU/mL H Lab Interpretation (test code = 01594-0) Abnormal [place] MethodistOsmolality, fskjg3117-93-85 18:57:40* Test Item Value Reference Range Interpretation Comments Osmolality, urine (test code = 2695-5) 359 50- 1,400 mOsm/ kg [place] MethodistFerritin vbfqv7993-38-77 03:42:51* Test Item Value Reference Range Interpretation Comments Ferritin level (test code = 2276-4) 550 ng/mL 13-150 H Lab Interpretation (test code = 42547-2) Abnormal [place] MethodistPeripheral xmbbi3385-26-62 15:43:16* Test Item Value Reference Range Interpretation Comments Peripheral smear (test code = 1894) Done Peripheral smear is located in [facility], [facility]. [place] MethodistImmunoglobulin [id number] 05:20:04* Test Item Value Reference Range Interpretation Comments IgE (test code = 18504-1) 165.4 0.0- 100.0 IU/mL H Lab Interpretation (test code = 67442-2) Abnormal [place] MethodistSedimentation [id number] 02:28:37* Test Item Value Reference Range Interpretation Comments Sedimentation rate (test code = 99742-2) 101 0- 20 mm/hr H Lab Interpretation (test code = 72889-3) Abnormal [place] MethodistCortisol, 60 rpmlqwm8094-55-40 18:20:20* Test Item Value Reference Range Interpretation Comments Cortisol, 60 Min (test code = 06083-4) 16 ug/dL Normal response to 0.25 mg 1-24 ACTH (cosyntropin) is a peak cortisol concentration of greater than 14 ug/dL at either 30 minutes or 60 minutes post-stimulation. [place] MethodistAdrenocorticotropic umxfqcw5445-41-71 14:49:33* Test Item Value Reference Range Interpretation Comments Adrenocorticotropic hormone (test code = 19853-0) 18.2 pg/mL 7.2- 63.3 [place] MethodistCortisol level, quzlmr4707-88-00 14:27:03* Test Item Value Reference Range Interpretation Comments Cortisol, random (test code = 2143-6) 12 ug/dL Reference Ranges are not established for non-timed Cortisol levels.Reference Range for Timed Cortisol: 6 - 10 AM 6 - 18 ug/dl 4 - 8 PM 3 - 11 ug/dl [place] MethodistUs duplex venous upper tdmkbmabj4643-05-72 19:24:00Interface, Radiology Results In - 10/23/2019 7:25 PM CDT Vascular Ultrasound Laboratory Upper Extremity Venous Report [address] [address] [facility].Name: EMILY BAUER Pat.ID: [id number] .Date: 10/23/2019 Refer.MD: LUKE SPARKS MD Exam Time: 3:51:00 PM Study Type:UE Venous Height: 66in Weight: 132lb BSA: 1.68 m2 Age: 9 1950,68Y Sex: FEMALE Sonogrphr: Jose Maria Bernardo RVT, ELYSENE Pat. Stat.:Inny kristal Room: DK2836-N Tape Vol: JOSHUA, CPT - 4: 38796 Echo Event ID:[id number] Order ID: [id number] Reason for Study:Right arm swelling. PMH of H TN, HLD, syncope.Procedures: Colorflow, Grayscale/2D, Pulsed wave DopplerRace: C SUMMARY:-------- DUPLEX SCAN OBSERVATIONS Right LeftIJ T-Collar Sub clavian Normal NormalAxillary Normal Brachial Normal Basilic Not Visualized Cephalic Normal RIGHT: There is normal compressibility and no evidence of echog enicmaterial noted within the lumen of the visualized veins. Colorflow andDopple r signals are normal. LEFT: There is normal compressibility and no evidence of echogenicmaterial noted within the lumen of the subclavian vein. Colorflow andDo ppler signals are normal. PRELIMINARY FINDINGS1. No evidence of venous throm bosis in the visualized veins. PHYSICIAN INTERPRETATION Venous examination of the right upper extremity and neck demonstratedno evidence of venous thrombosis. FINDINGS: -Signed 10/23/2019 07:24 PMLeonides Glasgow MD, VIPittsfield MethodistOva & parasites, concentrated tphfdomphxt6405-79-89 15:12:31* Test Item Value Reference Range Interpretation Comments Ova & parasites concentrated exam (test code = 1853) No Ova or Parasites seen. Specimen InformationSpecimen Source: StoolSpecimen Site: Nonpreserved [place] MethodistOva & parasites, trichrome zfpub2690-79-57 15:12:31* Test Item Value Reference Range Interpretation Comments Ova & parasites trichrome stain (test code = 1858) No ova or Par asites seen. Specimen InformationSpecimen Source: Sto olSpecimen Site: Nonpreserved [place] MethodistOva & parasites, direct osklhgapjnh3142-78-75 05:31:46* Test Item Value Reference Range Interpretation Comments Ova & parasites direct exam (test code = 1855) No Ova or Parasites seen. Specimen InformationSpecimen Source: StoolSpecimen Site: Nonpreserved [place] MethodistOva & parasites, gross ctxhfmnagqu2056-72-96 05:31:46* Test Item Value Reference Range Interpretation Comments Ova & parasites gross exam (test code = 1857) Green liquid Specimen InformationSpecimen Source: StoolSpecimen Site: Nonpreserved [place] LxwlevoweH31694-80-03 19:13:27* Test Item Value Reference Range Interpretation Comments T3 (test code = 3053-6) 77 ng/dL 80-200 L Lab Interpretation (test code = 72267-8) Abnormal [place] [facility] difficile kexaj4883-05-13 08:52:02* Test Item Value Reference Range Interpretation Comments Clostridium difficile toxin (test code = 1085) No Clos tridium difficle toxin present Specimen Information Specimen Source: StoolSpecimen Site: Nonpreserved [place] Jehovah'S WitnessBeta vfauqwitwlukhwe2732-38-98 08:07:40* Test Item Value Reference Range Interpretation Comments Beta hydroxybutyrate (test code = 6873-4) 0.07 mmol/L 0.02-0.27 [place] Alejandraputum gywxbqq6869-48-93 08:41:38* Test Item Value Reference Range Interpretation Comments Sputum culture isolate (test code = 2234) No growth after 2 days. Specimen InformationSpecimen Source: Tracheal aspirateSpecimen Site: Induced [place] Jehovah'S WitnessPA Hepatobiliary (HIDA Scan)2019-10-19 18:12:55Hm Interface, Radiology Results - 10/19/2019 6:15 PM CDTPROCEDURE: NM HEPATOBILIARY (HIDA SCAN)INDICATION: RUQ pain fever elev WBC Powell's signCOMPARISON: Hepatic ultrasound 10/19/2019TECHNIQUE: The patient was injected with 5 mCi of [id number]-Svszuwsi followed by dynamic imaging of the abdomen for 60 minute s.FINDINGS: There is physiological hepatic uptake and biliary excretion of radio tracer into the small bowel followed by normal gallbladder filling.IMPRESSION:No scintigraphic evidence of acute cholecystitis or common bile duct obstruction.Paolo [id number] MethodistCentral Line Pkctpwqqp0055-48-29 15:28:58Chip Lundberg MD 10/19/2019 6:28 [facility]STITUTEentral Line InsertionPerformed by: Priyank Lackey MDAuthorized by: Luke Sparks MD Consent: Consent obtai carlee: Verbal Consent given by: Healthcare agent (daughter by phone) Risks dis cussed: Arterial puncture, incorrect placement, nerve damage, pneumothorax, inf ection and bleeding Alternatives discussed: Delayed treatmentUniversal protoco l: Procedure explained and questions answered to patient or proxy's satisfacti on: yes Relevant documents present and verified: yes Test results availabl e and properly labeled: yes Imaging studies available: yes Required blood products, implants, devices, and special equipment available: yes Site/side m arked: yes Immediately prior to procedure, a time out was called: yes Doris ent identity confirmed: Arm band and hospital-assigned identification numberPre -procedure details: Hand hygiene: Hand hygiene performed prior to insertion Sterile barrier technique: All elements of maximal sterile technique followed Skin preparation: 2% chlorhexidine Skin preparation agent: Skin preparation agent completely dried prior to procedure Sedation: Sedation Type: Systemic and Anxiolysis Anxiolysis used:: Ativan Systemic used:: PropofolAnesthesia ( see MAR for exact dosages): Anesthesia method: Local infiltration Local anes thetic: Lidocaine 1% w/o epiProcedure details: Catheter type: Triple lumen ( Antibiotic coated COOK catheter) Catheter size: 7 Fr Catheter length (cm): 1 5 Catheter site: internal jugular vein Catheter Site Laterality: Right Pat ient position: Reverse Trendelenburg Landmarks identified: yes Ultrasound g uidance: yes Ultrasound guidance: images not saved electronically Sterile ultrasound techniques: Sterile gel and sterile probe covers were used Number of attempts: 1 Successful placement: yes Post-procedure details: Post-proce dure: Dressing applied and line sutured Assessment: Blood return through all ports and free fluid flow Patient tolerance of procedure: Tolerated well, no i mmediate complicationsComments: CXR ordered, pending.I was present at bedside for the procedureAll wires out.cxr - postion confirmed, no complicationDr Tamika [place] MethodistManual stkakadhdmqy7369-96-47 13:17:32* Test Item Value Reference Range Interpretation Comments Manual differential (test code = 72138-0) PERFORMED Neutrophils (test code = 70733-1) 71.0 % 39-69 H Corrected result; previously reported as 73.5 on 10/17/2019 at 15:46 by JP1 Lymphocytes (test code = 63587-3) 6.0 % 25-45 L Corrected result; previously reported as 6.6 on 10/17/2019 at 15:46 by JP1 Monocytes (test code = 84315-9) 7.0 % 0-10 Corrected result; previously reported as 7.3 on 10/17/2019 at 15:46 by JP1 Eosinophils (test code = 06670-8) 11.0 % 0-5 H Corrected result; previously reported as 11.3 on 10/17/2019 at 15:46 by JP1 Basophils (test code = 76200-1) 0.0 % 0-1 Corrected result; previously reported as 0.3 on 10/17/2019 at 15:46 by JP1 Myelocytes (test code = 749-2) 3 % Promyelocytes (test code = 783-1) 1 % Blasts (test code = 709-6) 1 % HH B last and manual differential results called to and read back by Emily Henderson/LARRY at 10/19/2019 10:41 by sltsr. Platelet slide review (test code = 93945-5) Increased A Toxic granulation (test code = 803-7) Slight Neutrophils, vacuolated (test code = 53634-3) Slight Anisocytosis (test code = 702-1) Moderate Polychromasia (test code = 54507-0) Moderate Spherocytes (test code = 802-9) Occasional Enlarged platelets (test code = 48633-0) Moderate A Giant platelets (test code = 5908-9) Occasional Lab Interpretation (test code = 07698-9) Abnormal Clarence FuistUS Mrwpzlv6459-76-60 10:58:54Hm Interface, Radiology Results 10/19/2019 11:01 AM CDTEXAMINATION: US HEPATICCLINICAL HISTORY: Evaluate cholecystitisCOMPARISON: CT chest, abdomen and pelvis 10/16/2019FINDINGS:There is nonshadowing layering sludge in the gallbladder. No definite shadowing gallstone is visualized. The gallbladder wall thickness is borderline at 3 mm. The sonographic Powell sign is positive.The common duct is upper limit of normal diameter at 6.5 mm (7 mm is acceptable for the patient's age).The main portal vein is 8 mm diameter and patent with normal flow d irection.The liver is mildly heterogeneous. No mass or intrahepatic biliary dila tion is seen.Mild perihepatic ascites and a right pleural effusion are redemonst rated.IMPRESSION:Sonographic findings suspicious for acute cholecystitis.[id number] _PS03[place] MethodistBlood smear vxzypcp9832-63-15 10:43:02* Test Item Value Reference Range Interpretation Comments Blood smear consult (test code = 982) Done Neutrophilic leukocytosis with absolute eosinophilia and absolute monocytosis with few immature monocytic cells and rare blast (1%). If monocytosis persists, consider hematology evaluation if clinically indicated.Reviewed by Tasha PalWound vac fkpjxnmtz5860-95-40 11:44:38Dinh Lee 10/17/2019 11:56 AMWound vac placementDate/Time: 10/17/2019 11:48 AMPerformed by: Dinh LeeAuthorized by: Luke Sparks MD Associated Wounds: Negative Pressure Wound Therapy 10/11/19 Left;Lateral;Upper Back Consent: Consent obtained: Verbal Consent given by: Patient Risks discussed: Bleeding, infection and painPre-procedure details: Indication: Other (Subcutaneous fluid collection of Left chest and back)Sedation: Sedation type: Systemic Systemic used:: PropofolWound Description: Wound type: Surgical Wound location: Trunk Trunk: Chest (Left chest and back) Wound age (months, weeks, days): 10 days Eschar tissue present in wound: No Wound Measurements: Length (cm): 16 Width (cm): 4 Area (cm3) formula based on LxW: 64 Wound measurement date: 10/17/2019Appearance of Wound/Wound Descriptio n: Wound full thickness: Yes Wound exposed tissue: Muscle Undermining: No Tunneling/Sinus: No Drainage: Purulent Drainage amount: Moderate Type of foam: Wound vac sponges: 2x white, 1x black Size of foam: 13x4cm Malodor ous?: No Wound Vac Settings: Pressure: 50 Status: ContinuousPost-procedure : Patient tolerance: Patient tolerated the procedure well with no immediate co mplications [place] MethodistBilirubin knxyno4558-61-06 04:21:16* Test Item Value Reference Range Interpretation Comments Bilirubin direct (test code = 1968-7) 0.4 mg/dL 0-0.3 H HALLIE (test code = HALLIE) recollect___K___ results joe led to and read back by SHIRA GUARDADO /WT09_(name/location)at 10/17/2019 04:13 (date/time) by IVONNE_. Lab Interpretation (test code = 15493-6) Abnormal [place] MethodistCreatine kinase, total (CPK)2019-10-17 04:21:16* Test Item Value Reference Range Interpretation Comments Creatine kinase (test code = 2157-6) 15 U/L 26-192 L HALLIE (test code = HALLIE) recollect___K___ results joe led to and read back by SHIRA GUARDADO /WT09_(name/location)at 10/17/2019 04:13 (date/time) by IVONNE_. Lab Interpretation (test code = 03825-8) Abnormal [place] MethodistCBC [id number] 03:43:28* Test Item Value Reference Range Interpretation Comments WBC (test code = 59576-8) 21.24 4.50- 11.00 k/uL H RBC (test code = 92558-9) 2.27 m/uL 4.2-5.5 L HGB (test code = 718-7) 6.4 g/dL 12-16 LL Resu lts called to and read back by BENNY/ROBERTO (name/location) at 10/17/2019 03:43 (date/time) by 465. HCT (test code = 4544-3) 21.1 % 37-47 L MCV (test code = 787-2) 93.0 fL 82-100 MCH (test code = 785-6) 28.2 pg 27-34 MCHC (test code = 786-4) 30.3 g/dL 31-37 L RDW - SD (test code = 50795-8) 59.7 fL 37-55 H MPV (test code = 18672-9) 9.7 fL 8.8-13.2 Platelet count (test code = 49858-7) 438 150- 400 k/uL H Nucleated RBC (test code = 85579-8) 0.00 /100 WBC HALLIE (test code = HALLIE) recollect Lab Interpretation (test code = 12685-7) Abnormal [place] MethodistCT Chest Wo Contrast Abdomen Wo Contrast Pelvis Wo Contrast 2019-10-16 20:52:41Hm Interface, Radiology Results 10/16/2019 8:55 PM CDTCT CHEST WO CONTRAST ABDOMEN WO CONTRAST PELVIS WO CONTRASTCLINICAL INDICATION: Fever without sourceTECHNIQUE: Multidetector CT examination of the chest, abdomen, and pelvis was performed without iodinated contrast with automated exposure control and/or iterative reconstruction techniques to radiation dose.COMPARISON: 10/06/2019FINDINGS:CHEST: *A tracheostomy cannula is now present in appropriate position. Trachea is patent. There is mild narrowing of the left mainstem bronchus compared to the right but no endobronchial process or mucus plugging is identified.*An enteric tube is present in the fluid-filled dilated esophagus, degree of fluid significantly increased in the interval with foci of intraluminal gas. The distal esophagus is not identified with clips noted proximal to the diaphragm postoperatively as before. Prominent infiltration about the gastroesophageal junction from inflammatory changes noted.* 1 of 2 left-sided chest tubes remain in place in the posterior aspect of the left hemithorax, the anterior chest tube extending to the apex removed in the interval. There is no pneumothorax.*There is moderate fluid present through the posterior aspect of the left hemithorax more prominent inferior and posterior to the remaining chest tube. Foci of gas are noted within the collection with pleural thickening, consistent with empyema.*Of note, there is now extensive fluid along the left lateral chest wall external to the thorax with a crescentic 3.2 x 9.7 x 8.0 cm collection with foci of gas (series 2 image 84). This occurs along the cranial aspect of the chest tube.*Extensive pleural thickening of the left hemithorax appears minimally changed.*There is loculated fluid involving the posterior aspect of the right hemithorax which appears new in the interval.*Areas of patchy subpleural infiltration are present through the right upper lobe which may reflect atelectasis. There are new areas of i ndeterminate groundglass infiltration present through the right middle lobe and right lower lobe concerning for developing pneumonia. *Stable airspace disease i n a lobular septal thickening peribronchial infiltration remain present the left lung with improved aeration of the left lower lobe from prior.*The heart is mil dly enlarged with a moderate pericardial effusion. Prominent calcifications of t he aortic annulus noted. No dilatation of the ascending aorta. Pulmonary trunk i s dilated at 3.6 cm as before.ABDOMEN:*Stable operative changes noted about the gastroesophageal junction with poor definition of the bowel given collapse, prater ges of previous gastric bypass present as before.*The unenhanced liver, spleen, atrophic pancreas, kidneys and adrenal glands are without mass or change. The ga llbladder is markedly distended probably related to nothing by mouth status, no intrahepatic biliary dilatation present.*There is prominent ascites in the right upper quadrant but without mass effect or associated gas to suggest infection by CT.*High density material is noted throughout the colon with multiple divertic karen without complication.*Moderate atherosclerosis of the aorta and branch vesse ls noted. There are probable reactive mesenteric and retroperitoneal lymph nodes , none considered enlarged by criterion.PELVIS:*A Lechuga catheter is present in t he urinary bladder, the bladder appearing collapsed with gas in the nondependent portion (sagittal image 72).*There is free fluid within the pelvis without orga nized collection or abscess.*Uterus is not visualized.MUSCULOSKELETAL:*Discogeni c sclerosis is noted T9-10. Schmorl's node involves superior endplate of T12 wit h mild compression deformity*Extensive bilateral soft tissue edema, collection n oted left lateral thoracic wall as above. IMPRESSION:1.New subcutaneous collection in the left chest external to the thoracic wall and cranial to the r esidual single left-sided chest tube as described.2.Persistent effusion with pro minent wall thickening and gas about the posterior inferior left hemithorax cons istent with residual empyema.3.Interval placement of tracheostomy cannula. Enter ic tube noted in a markedly dilated fluid-filled esophagus, the distal esophagus and gastroesophageal junction poorly visualized postoperatively given extensive soft tissue infiltration about the thoracoabdominal junction.4.Developing simple pleural fluid in the right hemithorax.5.Developing airspace infiltrates in the right lung, concerning for developing pneumonia, cause uncertain, typical and a typical etiologies possible.6.Ascites is noted in the right upper quadrant which has slightly increased in the interval without collection or abscess through the abdomen and pelvis.7.Collapsed urinary bladder with Lechuga catheter in place.8. Multiple other findings as detailed. Please see report for detail.*HMRM-WPHYMDL [place] MethodistCT Head Wo [id number] 18:07:11Hm Interface, Radiology Results 10/16/2019 6:10 PM CDTExam : Head CT without contrastHistory: Evaluate sinusitisComparison studies: None. Technique: Axial scans were obtained from skull base to the vertex.Coronal and sagittal re constructions obtained from the axial data. CT imaging was performed with iterat jaime reconstruction technique and/or automated exposure control to reduce radiati on dose.IV Contrast: None Complications: NoneFINDINGS:Beam hardening artifact li mits the evaluationScalp/Skull:No abnormalities.Brain sulci: Appropriate for pat ient's age.Ventricles: Normal in size and configuration.No hydrocephalus.Extra-a xial spaces:No masses or fluid collections. Dystrophic calcification at the righ t paracentral parietal convexity.Parenchyma: Few hypodensities of the periventri cular and deep white matter, nonspecific and most commonly seen with mild chroni c microvascular ischemic changes..No masses, hemorrhage or acute or chronic cj ical insultsDural sinuses: No abnormal densities.Sellar/Suprasellar region: Int act.Skull base and Craniocervical junction: Intact .Incidental findings: There a re sclerotic calcifications of the carotid siphons.Nonspecific mucosal thickenin g of the left maxillary and left sphenoid sinuses. Remaining sinuses are clear.I MPRESSION:1. No acute intracranial abnormalities.2. Nonspecific inflammatory taylor nges of the left maxillary and sphenoid sinuses.[place] MethodistDigoxin level 2019-10-16 02:52:26* Test Item Value Reference Range Interpretation Comments Digoxin (test code = 25706-0) 1.1 ng/mL 0.8-2 For valid Digoxin results, at least 6 hours should elapse between time of last dose and collection of blood.Otherwise, result may be false high.Therapeutic Range:0.8 - 2.0 ng/mL [place] MethodistWound vac ittmgvyek2934-88-16 13:47:45AloDinh rodriguez 10/16/2019 1:40 AMWound vac placementDate/Time: 10/15/2019 1:47 PMPerformed by: Dinh LeeAuthorized by: Luke Sparks MD Associated Wounds: Negative Pressure Wound Therapy 10/11/19 Left;Lateral;Upper Back Pre-procedure details: Indication: Wound careSedation: Sedation Type: None.Anesthesia (see MAR for exact dosages): Anesthesia method: NoneWound Description: Wound type: Surgical Wound location: Trunk Trunk: Chest Wound age (months, weeks, days): 1 week Eschar tissue present in wound: No Debridement attempted in last 10 days: No Serial debridements required: No Appearance of Wound/Wound Description: Wound full thickness: No Wound exposed tissue: Subcutaneous. Undermining: No Tunneling/Sinus: No Granul ation color: Noonan Drainage: Serosanguinous Drainage amount: Scant Type of foam: Prevena Size of foam: Customizeable, approximately 34cm Malodorous?: N o Wound Vac Settings: Status: ContinuousPost-procedure: Patient tolerance: Patient tolerated the procedure well with no immediate complications Complic ations: NoneHouston MethodistTissue [id number] 01:46:01* Test Item Value Reference Range Interpretation Comments Tissue culture isolate (test code = 68868-0) No growth after 3 days . Specimen InformationSpecimen Source: TissueSpecimen Site: Lung: Left chest wall skin B [place] MethodistXR Abdomen 1 [id number] 21:22:58Hm Interface, Radiology Results 10/10/2019 9:26 PM CDTExamination: XR ABDOMEN 1 VW PORTABLEClinical History: DistensionComparison: None.Findings:Single frontal view of the abdomen is obtained. Bowel gas pattern is nonspecific with paucity of small bowel gas. No bowel distention is seen. No free air is seen. Pelvic surgical clips are noted.IMPRESSION:1. Nonspecific bowel gas pattern with paucity of small bowel gas.[facility]-[id number] MethodistIonized calcium, [id number] 16:18:39* Test Item Value Reference Range Interpretation Comments Ionized calcium, venous (test code = 92353-7) 1.19 mmol/L 1.11-1.3 2 [place] MethodistO2 saturation, [id number] 16:18:28* Test Item Value Reference Range Interpretation Comments Hemoglobin, venous, syringe (test code = 68102-1) 8.4 g/dL 12-1 6 L O2 saturation, venous (test code = 2711-0) 82 % 40-70 H Lab Interpretation (test code = 58560-1) Abnormal [place] MethodistVenous blood gas, sanrkezrc9626-32-54 16:18:28* Test Item Value Reference Range Interpretation Comments pH, venous (test code = 2746-6) 7.17 7.32-7.42 L pCO2, venous (test code = 2021-4) 69 45- 51 mmHg H pO2, venous (test code = 2705-2) 56 25- 40 mmHg H Temperature, Celsius, venous (test code = 8310-5) 35.0 Degr ees C O2 saturation, venous (test code = 2711-0) 82 % 40-70 H pH, venous corrected (test code = 74572-3) 7.19 pCO2, venous corrected (test code = 08873-0) 62 mmHg pO2, venous corrected (test code = 25764-7) 49 mmHg Base excess, venous (test code = 1927-3) -5 meq/L -2-2 L Lab Interpretation (test code = 92043-2) Abnormal [place] EuiatpcwvCqkrwf8483-30-19 13:07:39YeNayeli shaffer MD 10/08/2019 1:09 PMAirwayPerformed by: Nayeli Solo MDAuthorized by: Gilles Nazaroi MD Location: ORUrgency: ElectiveDifficult Airway: No Anesthesiologist: Gilles Nazario, SABINAesident/PARK SUPERINTENDENT/AA: Nayeli Solo MDPerformed by: anesthesiologist and resident/PARK SUPERINTENDENT/AAMask Ventilation: Not attemptedAirway interventions: Bronchial victor manuel.Number of Attempts at Approach: 1 Patient is intubated with 8.0 ETT, bronchial victor manuel is placed into the left bronchusHouston MethodistSodium level, urine, [id number] 19:44:10* Test Item Value Reference Range Interpretation Comments Sodium, urine, random (test code = 51001-5) <20 mEq/L [place] MethodistCreatinine level, urine, [id number] 19:29:12* Test Item Value Reference Range Interpretation Comments Creatinine, urine, random (test code = 17118-0) 66 mg/dL [place] MethodistUrea nitrogen, urine, [id number] 19:29:09* Test Item Value Reference Range Interpretation Comments Urea nitrogen, urine, random (test code = 3095-7) 1030 mg/dL [place] MethodistChloride level, [id number] 21:46:02* Test Item Value Reference Range Interpretation Comments Chloride, syringe (test code = 1069) 111 98- 112 mEq/L [place] MethodistOR [place] > I [id number] 21:31:02Hm Interface, Radiology Results Incoming 10/05/2019 9:34 PM CDTEXAMINATION: OR [place] > 1 HOURC-arm fluoroscopy was requested in OR. LOCATION: [facility] #6PROCEDURE: Left Arm VenogramSTART TIME: 1130FINISH TIME: 1240FLUORO TIME: 1.1DOSE (mgy): 7.9TECH(S): ABIMPRESSION:Intraoperative fluoroscopic images. Radiologist was not present during the examination.Separate operative report will be issued by the physician performing the procedure.[id number] MethodistTransthoracic Echocardiogram Limited or Follow Up (w Contrast if needed)2019-10-05 16:19:00 Interface, Radiology Results In 10/05/2019 4:20 PM CDT Echocardiography Report [id number]Name: EMILY BAUER Pat.ID: [id number] .Date: 10/05/2019 Refer.MD: LUKE SPARKS MD Exam Time: 2:12:00 PM Study Type:Routine Echo Height: 66in Weight: 132lb BSA: 1.68 m2 [age]: [age] Sex: FEMALE BP: 94/51 HR: 58 bpm Sonogrphr: ISAI Regan Pat. Stat.:Inpatient Room: [place] [address] Study S tatus:Final Echo Event ID:[id number] Order ID: [id number] Reason for Study:Pulmonary embolism, eval right heart strainHi story / Clinical:Hyperlipidemia, Hypertension, SyncopeProcedures: Strain, Olga alexandra, Stat, 2D Echo,Colorflow Doppler LimitedRace: C -- SUMMARY: LV size is normal. LV EF is normal.RV size is mildly enlarged. RV systolic function is normal.Moderate tricuspid regurgitationDiastolic dysfunction Grade III (Sev ere): Impaired relaxation withrestrictive LV filling pressures.Estimated PA syst olic pressure is 42 mmHg, assuming a mean RAP of 10mmHg. FINDINGS: LV: LV size is no rmal. LV EF is normal. Overall wall motion is normal. Estimated EF is 6 0-64%.RV: RV size is mildly enlarged. RV systolic function is normal. RV wall motion is normal.LA: LA volume is mildly enlarged.RA: RA volume is enlarged.AO: Aortic root diameter is normal.NICHOL: No peric ardial effusion.SVn: Inferior vena cava is normal in size.AV: No stru ctural AV abnormalities noted.MV: No structural MV abnormalities noted. Mi ld mitral regurgitation. PV: No structural PV abnormalities noted . A trace of pulmonic regurgitation. TV: No structural TV abnorma lities noted. Moderate tricuspid regurgitation Farris: Diastolic dysf unction Grade III (Severe): Impaired relaxation with restrictive LV iman ling pressures.Other: Estimated PA systolic pressure is 42 mmHg, assuming a m sis RAP of 10 mmHg. MEASUREMENTS:--- 2DParasternal Long Pecan Gap Ao An 1.6 cm LVPWd 0.99 cm Ao Rtd 3.4 cm Index 2 cm/m2 LA Ds 4.1 cm IVSd 0.83 cm RWT 0.41 LVIDd 4.8 cm Index 2.9 cm/m2 LV Mass 151 g (87-129)* LVIDs 3.5 cm LVM Index 90 g/m2 LV%fs 28 % LVOT 1.9 cm Right Ventricle RVIDd 4.6 cm (2.6-4.3)*LA Sng Plane LA Area 21 cm2 (8.8-23.4) LA Vol 58 ml Index 35 ml/m2 LA LngAx 5.8 cm RA Sng Plane RA Vol 55 ml Index 33 ml/m2 RA LngAx 4.7 cm RA Area 18 cm2 (8.3-19.5)LVOT LVOT Area 3 cm2 DOPPLERLVOT Stroke Vol LVOT TVI 19 cm HR 57 bpm LVOT LVOT SV 57 ml LVOT CO 3.3 l/min SVi 34 ml/m2 LVOT CI 1.9 l/m/m2TV Pressure Gradient TV PkVel 281 cm/s TV PG 32 mmHg Signed 10/05/2019 04:19 Britney Irby MDResearch Medical Center-Brookside Campuspaulina MethodistVancomycin level, [id number] 15:41:31* Test Item Value Reference Range Interpretation Comments Vancomycin, random (test code = 55525-9) 9.5 ug/mL [place] MethodistActivated clotting [id number] 12:51:43* Test Item Value Reference Range Interpretation Comments Activated clotting time (test code = 5298) 218 96- 152 sec H Business Intelligence Architect Name: Jason Richard ID: [id number] Lab Interpretation (test code = 33215-0) Abnormal [place] MethodistArterial [id number] 12:35:11FoEdward givens MD 10/05/2019 12:35 PMArterial linePerformed by: Edward Dempsey MDAuthorized by: Stefani Gomez MD Patient Location: ORStart Time: 10/05/2019 11:00 AMEnd Time: 10/05/2019 11:15 AMStaff: Anesthesiologist: Stefani Gomez MD Performed by: AnesthesiologistPre-procedure: patient identified, IV checked, site and side verified, risks and benefits discussed, procedure verified, surgical consent complete, patient position confirmed, monitors and equipment checked, pre-op evaluation complete and timeout performed prior to procedure MSBT: antiseptic used, all elements of maximal sterile barrier technique followed, hand hygiene performed, cap/gown used by other personnel and solutions labeled Indications: Indications: multiple ABGs and hemodynamic monitoring Anesthesia: Anesthesia: GeneralProcedure Details: Arterial Line placement: Placed post induction Line placement site: AxillaryLine placement side: Right Arterial line gauge: 20 GNumber of attempts: 2 Ultrasound guidance used: Yes Post-procedure: Post-procedure: Sterile dressing applied Post procedure circulation, sensation, movement: Unchanged Patient tolerance: Patient luis angel erated the procedure well with no immediate complicationsClarence Fuist Enkicrwpfjgck4508-89-53 04:26:07* Test Item Value Reference Range Interpretation Comments Triglycerides (test code = 2571-8) 136 mg/dL <150 [place] MethodistChloride level, urine, [id number] 21:25:45* Test Item Value Reference Range Interpretation Comments Chloride, urine, random (test code = 74435-6) <20 mEq/L [place] MethodistPotassium, urine, [id number] 20:52:04* Test Item Value Reference Range Interpretation Comments Potassium, urine, random (test code = 2828-2) 39.1 mEq/L [place] MethodistVancomycin level, [id number] 11:27:54* Test Item Value Reference Range Interpretation Comments Vancomycin, trough (test code = 59132-5) 26.0 ug/mL 10-20 Therapeutic Ranges: Peak 30.0 - 40.0 ug/mL Trough 10.0 - 20.0 ug/mL Lab Interpretation (test code = 94724-6) Abnormal [place] MethodistTPA/Dornase Administration via chest [id number] 11:23:04 Robyn Pacheco PA 10/01/2019 11:24 AMTPA/Dornase Administration via chest tubeDa te/Time: 10/01/2019 11:23 AMPerformed by: Robyn Pacheco, PAAuthorized by: Adam Sparks MD Consent: Consent obtained: Verbal Consent given by: Patient Risks discussed: Bleeding, incomplete drainage, infection and pain Alternatives disc ussed: No treatmentUniversal protocol: Procedure explained and questions answ ered to patient or proxy's satisfaction: yes Relevant documents present and v erified: yes Test results available and properly labeled: yes Imaging stud ies available: yes Required blood products, implants, devices, and special eq uipment available: yes Site/side marked: yes Immediately prior to procedur e, a time out was called: yes Patient identity confirmed: Verbally with doris ent, arm band and hospital-assigned identification numberIndications: Indicati ons: Left EmpyemaPost-procedure details: Patient tolerance of procedure: Luis Angel erated well, no immediate complicationsHoucooley dickinson hospital MethodistTPA/Dornase Administration via chest [id number] 12:22:58Robyn Pacheco PA 09/30/2019 12:24 PMTPA/Dornase Administration via chest tubeDate/Time: 09/30/2019 12:23 PMPerformed by: Robyn Pacheco PAAuthorized by: Reynold Prater MD Consent: Consent obtained: Verbal Consent given by: Patient Risks discussed: Bleeding, incomplete drainage, infection and pain Alternatives discussed: No treatmentUniversal protocol: Procedure explained and questions answered to patient or proxy's satisfaction: yes Relevant documents present and verified: yes Test results available and properly labeled: yes Imaging studies available: yes Required blood products, implants, devices, and special equipment available: yes Site/side marked: yes Immediately prior to proce dure, a time out was called: yes Patient identity confirmed: Verbally with tatiana ornelas, hospital-assigned identification number and arm bandIndications: Indic ations: Left EmpyemaAnesthesia (see MAR for exact dosages): Anesthesia method : NonePost-procedure details: Patient tolerance of procedure: Tolerated well , no immediate complicationsHoucooley dickinson hospital MethodistTPA/Dornase Administration via chest [id number] 10:22:08Robyn Pacheco PA 09/29/2019 10:24 AMTPA/Dornase Administration via chest tubeDate/Time: 09/29/2019 10:22 AMPerformed by: Robyn Pacheco PAAuthorized by: Luke Sparks MD Consent: Consent obtained: Verbal Consent given by: Patient Risks discussed: Bleeding, incomplete drainage, infection and pain Alternatives discussed: No treatmentUniversal protocol: Procedure explained and questions answered to patient or proxy's satisfaction: yes Relevant documents present and verified: yes Test results available and properly labeled: yes Imaging studies available: yes Required blood products, implants, devices, and special equipment available: yes Site/side marked: yes Immediately prior to procedure, a time out was called: yes Patient identity confirmed: Verbally with patient, hospital-assigned identification number and arm bandIndications: Indications: Left EmpyemaAnesthesia (see MAR for exact dosages): Anesthesia method: NonePost- procedure details: Patient tolerance of procedure: Tolerated well, no immediate complicationsHoupaulina MethodistNocardia rnlmerm6777-24-01 08:54:30* Test Item Value Reference Range Interpretation Comments Nocardia culture isolate (test code = 1808) No Nocardia isol ated after 7 days. Specimen InformationSpecimen Source: Bronchial alveolar lavageSpecimen Site: Lung: left lung [place] MethodistTPA/Dornase administration via chest [id number] 10:41:54 Robyn Pacheco PA 09/28/2019 10:45 AMTPA/Dornase administration via chest tubeDat e/Time: 09/28/2019 10:42 AMPerformed by: Robyn Pacheco PAAuthorized by: Luke Sparks MD Consent: Consent obtained: Verbal Consent given by: Patient Risks di scussed: Bleeding, incomplete drainage, infection and pain Alternatives discus sed: No treatmentUniversal protocol: Procedure explained and questions answer ed to patient or proxy's satisfaction: yes Relevant documents present and sarah ified: yes Test results available and properly labeled: yes Imaging studie s available: yes Required blood products, implants, devices, and special equi pment available: yes Site/side marked: yes Immediately prior to procedure, a time out was called: yes Patient identity confirmed: Verbally with patien t, hospital-assigned identification number and arm bandIndications: Indication s: Left pleural effusion Anesthesia (see MAR for exact dosages): Anesthesia m ethod: NonePost-procedure details: Patient tolerance of procedure: Tolerated well, no immediate complicationsHoucooley dickinson hospital MethodistTPA/Dornase Administration via chest [id number] 10:58:57Robyn Pacheco PA 09/27/2019 11:01 AMTPA/Dornase Administration via chest tubeDate/Time: 09/27/2019 10:59 AMPerformed by: Robyn Pacheco, ASAuthorized by: Luke Sparks MD Consent: Consent obtained: Verbal Consent given by: Patient Risks discussed: Bleeding, incomplete drainage, infection and pain Alternatives discussed: No treatmentUniversal protocol: Procedure explained and questions answered to patient or proxy's satisfaction: yes Relevant documents present and verified: yes Test results available and properly labeled: yes Imaging studies available: yes Required blood products, implants, devices, and special equipment available: yes Site/side marked: yes Immediately prior to procedure, a time out was called: yes Patient identity confirmed: Verbally with patient, hospital-assigned identification number and arm bandIndications: Indications: Left pleural effusionAnesthesia (see MAR for exact dosages): Anesthesia method: NonePost- procedure details: Patient tolerance of procedure: Tolerated well, no immediate complicationsP[place] MethodistCT Chest W Contrast Abdomen W Contrast Pelvis W [id number] 15:47:16Hm Interface, Radiology Results 09/26/2019 3:50 PM CDTEXAMINATION: CT CHEST W CONTRAST ABDOMEN W CONTRAST PELVIS W CONTRASTCLINICAL HISTORY: Evaluate leukocytosis intra-abdominal fluid collectionTECHNIQUE: Multiple axial images of the chest, abdomen, and pelvis were obtained following intravenous administration of iodinated contrast. Sagittal and coronal computerized reformatted images were obtained.CT imaging was performed with iterative reconstruction techniques and/or automated exposure control to reduce radiation dose.COMPARISON: CT chest 09/22/2019, CT chest and abdomen 09/19/2019FINDINGS:Chest: 1. Small complex multiloculated left pleural effusion, and 2 left chest tubes, are stable.2.Diffuse volume loss in the left, diffuse groundglass, peribronchial consolidation and peribronchial bandlike opacities persist. There is slight worsening of the degree of volume loss.3.Moderate right dependent pleural effusion and associated compressive atelectasis are stable. There is no acute right lung parenchymal disease. 4.Mediastinal adenopathy is stable.5.The heart size is normal. There is no peric ardial effusion. The main pulmonary artery is dilated at 3.9 cm diameter suggest ing pulmonary arterial hypertension.Abdomen and Pelvis:1. Mild right-sided abdom inal ascites, and trace pelvic ascites, are present. The right-sided abdominal a scites is similar to previous CT of the abdomen.2.Sigmoid diverticulosis is pres ent. There is no bowel obstruction or obvious acute inflammation. Surgical devries es at the GE junction are present.3.A tiny cleft-like linear defect in the infer ior right hepatic lobe has not changed since 03/26/2019. Otherwise liver is unrema rkable.4.The spleen, pancreas, gallbladder, adrenals are normal.5.Mild left mragarita l cortical scarring is stable. Otherwise the kidneys are normal. There is no hyd ronephrosis. 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 There is no acute skeletal abnormality.I MPRESSION:Slight worsening of left hemithoracic volume loss. Otherwise overall s table [facility]-[id number] MethodLos Alamos Medical Centerespiratory pathogen panel 2019-09-23 18:40:03* Test Item Value Reference Range Interpretation Comments Adenovirus PCR (test code = 7092) Not Detected Specimen InformationSpecimen Source: Bronchial alveolar lavageSpecimen Site: LLL (Left Lower Lobe) Coronavirus HKU1 PCR (test code = 7093) Not Detected Coronavirus NL63 PCR (test code = 7094) Not Detected Coronavirus 229E PCR (test code = 7095) Not Detected Coronavirus OC43 PCR (test code = 7096) Not Detected Human metapneumovirus PCR (test code = 7097) Not Detected Human rhinovirus/enterovirus PCR (test code = 7098) Not Detected Influenza A PCR (test code = 7099) Not Detected Influenza A/H1 PCR (test code = 7100) Not Reported Influenza A/H3 PCR (test code = 7102) Not Reported Influenza A/H1-2009 PCR (test code = 7101) Not Reported Influenza B PCR (test code = 7104) Not Detected Parainfluenza virus 1 PCR (test code = 7105) Not Detected Parainfluenza virus 2 PCR (test code = 7106) Not Detected Parainfluenza virus 3 PCR (test code = 7107) Not Detected Parainfluenza virus 4 PCR (test code = 7108) Not Detected Respiratory syncytial virus PCR (test code = 7109) Not Detected Bordetella pertussis PCR (test code = 3022030) Not Detected Bordetella parapertussis PCR (test code = 5253597) Not Detected Chlamydia pneumoniae PCR (test code = 3753) Not Detected Mycoplasma pneumoniae PCR (test code = 7110) Not Detected Influenza A no sub type PCR (test code = 7127) Not Reported Lima NickieDenzel Insert Pleura [id number] 14:33:38Hm Interface, Radiology Results 09/22/2019 2:36 PM CDTEXAMINATION: US INSERT PLEURA CATHETERCLINICAL INDICATION: Left loculated pleural effusionTE CHNIQUE:The risks, benefits, and alternatives were discussed and written informe d consent was obtained. A time-out site and side procedure was performed.A site for needle entry was selected and the skin was prepped and draped in the usual s terile fashion. After local administration of 1% buffered lidocaine, a tiny derm atotomy was made. Using ultrasound guidance, a 5 Prydeinig Yueh catheter was advanc ed into the left hemithorax with return of turbid hart colored fluid. Using Seldi nger technique, a wire was inserted and a 10F APD drain advanced into the collec tion with coil deployed and all wires removed. Spontaneous return of turbid hart fluid was present at the APD drain at conclusion of the placement. The patient was discharged to the floor.Conscious sedation: None specifically administered for the procedure.EBL: None.Complications: None apparent.Assistants: None.IMPRES WAYNE:Successful ultrasound 10F APD drain placement in complex left pleural fluid collection for TPA administration as described. *[facility]-[id number] Jehovah'[employer] Witness [id number] 17:23:36Cale Olivas CRNA 09/20/2019 5:24 PMAirwayDate/Time: 09/20/2019 4:40 PMPerformed by: Cale Olivas CRNAAuthorized by: Anil Chapa MD Location: ORUrgency: ElectiveDifficult Airway: No Anesthesiologist: Anil Chapa MDResident/PARK SUPERINTENDENT/AA: Cale Olivas CRNAPerformed by: resident/PARK SUPERINTENDENT/AAPreoxygenated with 100% O2: Yes Mask Ventilation: Easy maskFinal Airway Type: Endotracheal airwayFinal Endotracheal Airway: ETT - double lumen leftCuffed: Yes Technique Used: Direct laryngoscopyDevices/Me thods Used in Placement: Intubating styletInsertion Site: OralBlade Type: Mil lerLaryngoscope Blade/Videolaryngoscope Blade Size: 2ETT Double Lumen (fr): 39 Cuff at minimum occlusion pressure: Yes Measured from: LipsPlacement Verified by: CO2 detection, direct visualization and equal breath sounds Laryngoscopic v iew: Grade I - full view of glottisRapid Sequence Induction (RSI): No Number o f Attempts at Approach: 1[facility]CT [facility] W Contrast Abdomen W [id number] 18:02:30Hm Interface, Radiology Results 09/19/2019 6:05 PM CDTEXAMINATION: CT CHEST W CONTRAST ABDOMEN W CONTRASTCLINICAL HISTORY: 68 years Female post op fevers increasing WBCTECHNIQUE: Multiple axial images of the chest and abdomen were obtained following intravenous contrast. Sagittal and coronal computerized reformatted images were also obtained. CT imaging was performed with iterative reconstruction techniques and/or automated exposure control to reduce radiation dose. COMPARISON:CT of the chest without contrast from 09/13/2019.IMPRESSION:CHEST:Lungs and airways: There is mild compressive atelectasis in the dependent portions of the right lower lobe. There is consolidation of the left lower lobe with some associated air bronchograms likely reflecting combination of atelectasis as well as infection and/or aspiration. There is partial atelectasis of the left upper lobe.Pleura: Two large bore chest tubes are in place in the left pleural space 1 present anteriorly and one posteriorly. The complex left pleural fluid collection is slightly increased in size compared to the prior CT from 11/13/2019. Loculated pleural fluid along the left superior medicinal surface is new.There is a new small right pleural effusion. No significant residual left pneumothorax is identified.Mediastinum and lymph nodes: Evaluation is limited due to lack of intravenous contrast. Within this limitation a precarinal lymph node seen on ser ies 2 image 37 is stable measuring 0.9 cm in short axis. Subcarinal lymph nodes are also unchanged measuring up to 1.1 cm in short axis. Evaluation of the esoph alfred is limited due to lack of enteric contrast. There is a tube in the proximal esophagus which terminates just above the level of the jerry. Cardiovascular: The heart is at the upper limits of normal in size. There is a small pericardial effusion. The thoracic aorta is normal in caliber. The pulmonary artery trunk r emains mildly dilated. This is nonspecific and can be seen in the setting of pul monary artery hypertension.Other: A PICC line from the right upper extremity romero murdock terminates in the lower aspect of the SVC.ABDOMEN:Liver: The liver is norm al. No focal mass.Gallbladder/Biliary: The gallbladder is mildly distended and d emonstrates a thickened wall. Color wall thickening could be related to adjacent ascites. There is no evidence of biliary duct dilatation.Spleen: The spleen is not enlarged.Pancreas: The pancreas is unremarkable.Adrenal Glands: The adrenal glands are unremarkable.Kidneys: The kidneys are unremarkable. No mass, hydronep hrosis or calculi.Vascular: The abdominal aorta is nonaneurysmal. There are mode rate atherosclerotic calcifications in the mid and distal portions of the abdomi nal aorta.Nodes: No enlarged retroperitoneal or mesenteric lymphadenopathy.Bowel : There are postoperative changes in the upper abdomen from prior gastric bypass procedure. The included large and small bowel loops are normal in caliber. There is no evidence of bowel obstruction.Ascites/fluid collections: There is a small amount of ascites in the upper abdomen. There is diffuse anasarca in the body wall of the lower chest and throughout the abdomen. The free intraperitoneal air seen on prior CT examination from 09/13/2019 has resolved.MUSCULOSKELETAL: No lopez spicious osseous lesions. SUMMARY:1.Increased size of complex left pleural effus ion. Partially loculated left pleural fluid along the mediastinal surface is new compared to the CT from 09/13/2019.2.New small right pleural effusion, small isiah unt of ascites in the upper abdomen, and body wall anasarca likely reflects volu me overload.3.Consolidation of the left lower lobe is likely due to the combinat ion of compressive atelectasis, with suspected underlying infectious process. 4. Gallbladder wall thickening is likely reactive due to ascites.5.Resolution of fr ee intraperitoneal air seen on the prior examination. [facility]-PR04APBICyxvqrg MethodistVitamin B1 level, whole [id number] 16:49:33* Test Item Value Reference Range Interpretation Comments Vitamin B1 (test code = 33126-1) 30 nmol/L 70-180 L INTERPRETIVE INFORMATION: Vitamin B1, Whole BloodThis assay measures the concentration of thiamine diphosphate (TDP), the primary active form of vitamin B1. Approximately 90 percent of vitamin B1 present in whole blood is TDP. Thiamine and thiamine monophosphate, which comprise the remaining 10 percent, are not measured.Test developed and characteristics determined by [facility]. See Compliance Statement B: [employer]/CSPerformed by [facility],[address] [place] [address] nmq.[employer], Armen Cabrera MD, Lab. Director Lab Interpretation (test code = 19597-5) Thuan Zavala020-06-27 02:17:07* Test Item Value Reference Range Interpretation Comments Troponin (test code = 98618-3) 0.796 ng/mL 0-0.04 H In patients suspected of having a myocardial infarction, along with all other appropriate clinical measures and actions including ECG and other diagnostics as appropriate, measure Ultra TnI at 0 hrs and at 3 hrs.Myocardial infarction VERY LIKELYThe 0 hr TnI level is > 0.10 ng/mL Vasyl cardial infarction LIKELYThe 0 hr TnI level is > 0.04 ng/mL and 3 hr level is increased or decreased by at least 0.020 ng/mL Myocardi al infarction VERY UNLIKELYBoth the 0 hr and 3 hr TnI levels <= 0.04 ng/mL(within normal limits) OR 0 hr is > 0.04 ng/mL and 3 hr is increased OR decreased by less than 0.020 ng/mL Lab Interpretation (test code = 09886-5) Abnormal [place] MethodistVitamin A level, plasma or [id number] 09:46:02* Test Item Value Reference Range Interpretation Comments Vitamin A (retinol) (test code = 2923-1) 0.12 mg/L 0.3-1.2 L Retinyl palmitate (test code = 18392-2) <0.02 0-0.1 Vitamin A interpretation (test code = 10847-9) See Note Retinol greater than 0.3 mg/L is typically associated with adequate liver stores in adults, and is within normal limits for children. Retinol less than 0.10 mg/L may indicate depleted liver stores and severe deficiency.Test developed and characteristics determined by [facility]. See Compliance Statement B: [employer]/CSPerformed by [facility],[address] [facility] [address] dij.[employer], Armen Cabrera MD, Lab. Director Lab Interpretation (test code = 53972-0) Abnormal [place] MethodistZinc level, [id number] 23:53:56* Test Item Value Reference Range Interpretation Comments Zinc (test code = 81811-6) 10.3 ug/dL 60-120 L I NTERPRETIVE INFORMATION: Zinc, Serum or PlasmaElevated results may be due to skin or collection-related contamination, including the use of a noncertified metal-free collection/transport tube. If contamination concerns exist due to elevated levels of serum/plasma zinc, confirmation with a second specimen collected in a certified metal-free tube is recommended.Circulating zinc concentrations are dep endent on albumin status and are depressed with malnutrition. Zinc may also be lowered with infection, inflammation, stress, oral contraceptives, and . Zinc may be elevated with zinc supplementation or fasting. Elevated zinc concentrations may interfere with copper absorption. Test developed and characteristics determined by [facility]. See Compliance Statement B: [employer]/CSPerformed by [facility],[address] [facility] [address] kwp.[employer], Armen Cabrera MD, Lab. Director Lab Interpretation (test code = 13673-1) Abnormal [facility] StephenvilleTransthoracic Echocardiogram Complete, (w Contrast, Strain and 3D if needed)2019-09-16 17:11:00Interface, Radiology Results In - 09/16/2019 5:11 PM CDT Echocardiography Report [address] [facility], [facility] [address], [place] [address] Pat.Name: EMILY BAUER Pat.ID: [id number] .Date: 09/16/2019 Refer.MD: LUKE SPARKS MD Exam Time: 1:48:00 PM Study Type:Routine Echo Height: 66in Weight: 130lb BSA: 1.67 m2 Age: 9 1950,68Y Sex: FEMALE BP: 124/60 HR: 93 bpm Sonogrphr: ISAI Hurst Pat. Stat.:Inpatient Room: [facility] Study Status:Final Echo Event ID:[id number] Order ID: [id number] Reason for Study:Atrial fibrillationProcedures: 2D Echo, Colorflow Doppler, Portable, Intravenous DefinityContrast --------SUMMARY: LV EF is normal. Estimated EF is 55-59%.Estimated PA systolic pressure is 50 mmHg, assuming a mean RAP of 1 5mmHg. FINDINGS: -------LV: LV size is normal. LV EF is normal. Overall wall motion is normal. Septal motion is paradoxical secondary to LBBB or conducti on abnormality. Estimated EF is 55-59%.RV: RV size is normal. RV systolic function is normal.LA: LA volume is moderately enlarged.RA: RA size is normal.AO: Aortic root diameter is normal.NICHOL: No pericardial effu wayne.AV: No structural AV abnormalities noted.MV: Mild thickening of mitral leaflets. Mild to moderate mitral regurgitation. PV: No s tructural PV abnormalities noted. A trace of pulmonic regurgitation. TV : No structural TV abnormalities noted. Mild tricuspid regurgitat ion Other: Estimated PA systolic pressure is 50 mmHg, assuming a mean RAP of 15 mmHg. MEASUREMENTS: 2DParasternal Long Pecan Gap Ao An 2 cm LVPWd 0.8 cm Ao Rtd 3. 5 cm Index 2.1 cm/m2 LA Ds 3.9 cm IVS d 0.88 cm RWT 0.38 LVIDd 4.2 c m Index 2.5 cm/m2 LV Mass 108 g (87-12 9) LVIDs 2.4 cm LVM Index 65 g/m2 LV%fs 43 % LA Sng Plane LA Area 23 cm2 (8.8-23.4) LA Vol 69 ml Index 42 ml/m2 LA LngAx 6.2 cm LVOT Stroke Vol LVOT 1.9 cm LVOT LVOT Area 2.8 cm2 DOPPLERLVOT Stroke Vol LVOT TVI 15 cm LVOT CI 2.4 l/m/m2 LVOT SV 42 ml HR 93 bpm LVOT CO 3.9 l/min LVOT SVi 25 ml/m2 Signed 09/16/2019 05:11 Deja Colunga M.D.[facility], [id number] 13:48:40* Test Item Value Reference Range Interpretation Comments Copper (test code = 2939-7) 61.5 ug/dL 80-155 L INTERPRETIVE INFORMATION: Copper, Serum or PlasmaElevated results may be due to skin or collection-related contamination, including the use of a noncertified metal-free collection/transport tube. If contamination concerns exist due to elevated levels of serum/plasma copper, confirmation with a second specimen collected in a certified metal-free tube is recommended.Serum copper may be elevated with inf ection, inflammation, stress, and copper supplementation. In females, elevated copper may also be caused by oral contraceptives and (concentrations may be elevated up to 3 times normal during the third trimester).Test developed and characteristics determined by [facility]. See Compliance Statement B: [employer]/CSPerformed by [facility],[address] [facility] [place] [address] xwm.[employer], Armen Cabrera MD, Lab. Director Lab Interpretation (test code = 13456-0) Abnormal [facility] [id number] 15:26:56Baldemar Ames RN 09/15/2019 3:31 PMPICC insertionDate/Time: 09/15/2019 3:31 PMPerformed by: Rene Babcock RNAuthorized by: Dulce Toscano NP Consent: Consent obtained: Verbal and written Consent given by: Healthcare agent (DAUGHTER BY PHONE ) Risks discussed: arterial puncture, incorrect placement, nerve damage, bleeding, infection, superficial thrombus and deep vein thrombus Alternatives discussed: No treatmentUniversal protocol: Procedure explained and questions answered to patient or proxy's satisfaction: yes Relevant documents present and verified: yes Test results available and properly labeled: yes Imaging studies available: yes Required blood products, implants, devices, and special e quipment available: yes Site/side marked: yes Immediately prior to procedu re, a time out was called: yes Patient identity confirmed: Verbally with pat ient, arm band and hospital-assigned identification numberPre-procedure details: Hand hygiene: Hand hygiene performed prior to insertion Sterile barrier te chnique: All elements of maximal sterile technique followed Skin preparation: 2% chlorhexidine Skin preparation agent: Skin preparation agent completely dr pilar prior to procedure Anesthesia (see MAR for exact dosages): Anesthesia met hod: Local infiltration Local anesthetic: Lidocaine 1% w/o epi Route of admi nistration: SubcutaneousLine Placement Details: Patient position: Flat Vess el Size (mm): 2.6. Indication: Known fci IV therapy and TPN Location: Right basilic Device Type: Non-valved Catheter size: 4 Fr Catheter to vein ratio: 58% Line Characteristics: Catheter Brand: BARD PROVENA POWER PICC External Catheter Length (cm): 0 Internal Catheter Length (cm): 33 Total Ca theter Length (cm): 33 Catheter Lot Number: [id number] Catheter Expiration Anderson e: 1Procedure Details: Landmarks identified: yes Ultrasound valerio ce: yes Sterile ultrasound techniques: Sterile gel and sterile probe covers w ere used Number of attempts: 1 Number of PICC kits used during procedure: 1 Purpose of procedure: PICC Placement Successful PICC Placement: Yes Miranda ncy/Placement: Flushes without difficulty, flushed with 10 mL normal saline, po sitive blood return, injection cap placed and x-ray placement verified PICC adelina marilyn utlizing ultrasound-guided Modified Seldinger Technique: Yes Dressing/Sec urement: Antimicrobial dressing applied, transparent semipermeable dressing, ca theter securement device, dressing dry and intact and dressing changed Blood Lo ss Amount: Less than 20 mLPost-Procedure Details: Post-procedure: Dressing a pplied Tip placement confirmed by chest x-ray: Yes Patient tolerance of proc edure: Tolerated well, no immediate complicationsClarence FuistMicroalbumin, urine, [id number] 21:07:00* Test Item Value Reference Range Interpretation Comments Total volume, urine (test code = 22033-9) No volume mL Urine creatinine concentration (test code = 47957-0) 70 mg/dL Urine microalbumin concentration (test code = 25219-7) 20.6 mg/dL Urine microalbumin/creatinine ratio (test code = 25370-5) 294 mg/g 0-30 H Lab Interpretation (test code = 65204-6) Abnormal Clarence HanksProtein, urine, [id number] 20:39:46* Test Item Value Reference Range Interpretation Comments Protein, urine random (test code = 2888-6) 89 mg/dL Clarence HanksVitamin D 25 hydroxy [id number] 15:55:26* Test Item Value Reference Range Interpretation Comments Vitamin D, 25-hydroxy (test code = 1989-3) 14.2 ng/mL 30-150 L This assay reports the sum of 25-hydroxy vitamin D3 and 25-hydroxy vitamin D2. Reference range:0-17 years:Deficiency: less than 20ng/mLOptimum level: greater than or equal to 20 ng/mL.18 years and older:Deficiency: less than 20ng/mLInsufficiency: 20-29 ng/mLOptimum Level: 30-80 ng/mLThe assay reportable range is 3.4 155.9 ng/mL. Levels higher than 150 ng/mL may be associated with toxicity.If toxicity is clinically suspected and the reported result is >155.9 ng/mL,contact lab for alternative methods to obtain a definitive level.If separate quantitation of 25-hydroxy vitamin D3 and 25-hydroxy vitamin D2 is needed, please contact lab for alternative methods. Lab Interpretation (test code = 03399-9) Abnormal [place] Jehovah'S WitnessVitamin B12 [id number] 14:31:29* Test Item Value Reference Range Interpretation Comments Vitamin B12 (test code = 2132-9) >1600 211-946 H Significant overlap exists between normal and deficiency states.However, most patients with deficiencies will have Serum B12 <200 pg/mL. Lab Interpretation (test code = 68664-8) Abnormal Clarence HanksLDH [facility] [id number] 22:45:52* Test Item Value Reference Range Interpretation Comments Fluid type (test code = 55462-5) Pleural LDH, fluid (test code = 98079-1) 4475 U/L The reference interval(s) and other method performance specifications have not been established for this body fluid. The test results must be integrated into the clinical context for interpretation.This test has been modified from the manufacturers instructions. The performance characteristics were determined by [facility] in a manner consistent with CLIA requirements. This test has not been cleared or approved by the U.S. Food and Drug Administration. Clarence HankspH, [facility] [id number] 22:40:10* Test Item Value Reference Range Interpretation Comments Fluid type (test code = 85317-2) Pleural pH, fluid (test code = 2748-2) 8.00 Reference ranges are not established for Miscellanous specimens. [place] MethodistAmylase level, [facility] [id number] 22:40:10* Test Item Value Reference Range Interpretation Comments Fluid type (test code = 06809-0) Pleural Amylase, fluid (test code = 1795-4) 222 U/L The reference interval(s) and other method performance specifications have not been established for this body fluid. The test results must be integrated into the clinical context for interpretation.This test has been modified from the manufacturers instructions. The performance characteristics were determined by [facility] in a manner consistent with CLIA requirements. This test has not been cleared or approved by the U.S. Food and Drug Administration. [place] MethodistArterial [id number] 22:21:48Sindy Swan MD 09/13/2019 10:22 PMArterial linePerformed by: Sindy Swan MDAuthorized by: Juan Hoyt MD Patient Location: ORStart Time: 09/13/2019 9:20 AMStaff: Anesthesiologist: Juan Pena MD Resident/PARK SUPERINTENDENT/AA: Sindy Swan MD Performed by: Resident/PARK SUPERINTENDENT/AAPre-procedure: patient identified, IV checked, site and side verified, risks and benefits discussed, procedure verified, surgical consent complete, patient position confirmed, monitors and equipment checked, pre-op evaluation complete and timeout performed prior to procedure MSBT: antiseptic used, all elements of maximal sterile barrier technique followed, hand hygiene performed, cap/gown used by other perso nnel and solutions labeled Indications: Indications: multiple ABGs and hemody namic monitoring Anesthesia: Anesthesia: Local infiltrationProcedure Details : Arterial Line placement: Placed pre-induction Line placement site: Radial Line placement side: Right Arterial line gauge: 20 GNumber of attempts: 1 U ltrasound guidance used: Yes Post-procedure: Post-procedure: Sterile dressin g applied Post procedure circulation, sensation, movement: Unable to assess P atient tolerance: Patient tolerated the procedure well with no immediate compli cationsHouston NegfwasokAbqpio7989-19-83 22:11:17AJuan Crandall MD 09/13/2019 11:02 PMAirwayDate/Time: 09/13/2019 9:30 AMPerformed by: Sindy Swan MDAuthorized by: Juan Pena MD Location: ORUrgency: ElectiveDifficult Airway: No Anesthesiologist: Juan Pena, SABINAesident/PARK SUPERINTENDENT/AA: Sindy Swan MDPerformed by: resident/PARK SUPERINTENDENT/AA and anesthesiologistPreoxygenated with 100% O2: Yes C-spine Precautions Maintained Throughout: Yes Mask Ventilation: Easy maskFinal Airway Type: Endotracheal airwayFinal Endotracheal Airway: ETT - double lumen leftCuffed: Yes Technique Used: Direct laryngoscopyDevices/Methods Used in Placement: F iberopticInsertion Site: OralBlade Type: MacintoshLaryngoscope Blade/Videolary ngoscope Blade Size: 3ETT Double Lumen (fr): 37Cuff at minimum occlusion press ure: Yes Measured from: LipsETT to Lips (cm): 30Placement Verified by: CO2 de tection and direct visualization Rapid Sequence Induction (RSI): No Modified R SI: Yes Number of Attempts at Approach: 1 Easy BMV, Peak pressures maintain < 20, easy DL, atraumatic. Position confirmed with fiberoptic scope, bronchial cuf f inflated under direct vision. Position confirmed after positioned left lateral . [place] MethodistLactic acid level, SEPSIS - Now and repeat 2x every 3 hours 2019-09-13 18:07:57* Test Item Value Reference Range Interpretation Comments Lactic acid (test code = 43640-3) 2.4 mmol/L 0.5-2.2 H Results called to and read back by CRISTINA MELTON 09/13/2019 18:07 Lab Interpretation (test code = 69683-1) Abnormal [place] [facility]CT Abdomen Pelvis Wo Hiefyqqz1826-02-54 17:48:55Hm Interface, Radiology Results 09/13/2019 5:51 PM CDTCT ABDOMEN PELVIS WO CONTRASTCLINICAL INDICATION: Nausea vomiting, With PO contrastTECHNIQUE: Multidetector CT of the abdomen and pelvis was performed without intravenous contrast with automated exposure control and/or iterative reconstruction techniq ues to radiation dose.COMPARISON: 03/26/2019FINDINGS:Please note, the lac k of contrast decreases sensitivity and limits evaluation.LUNG BASES: Please se e CT chest of the same day which is reported separately, high density contrast m aterial present in the left pleural space consistent with leak with an anterior pneumothorax, chest tube with complex fluid and extensive subcutaneous gas noted .LIVER: Unremarkable within limits of unenhanced exam.BILIARY: Hydropic appe aring gallbladder probably relates to nothing by mouth status. No dilatation of the common bile duct or intrahepatic ducts.PANCREAS: Pancreas is atrophic SPLEE N: Normal.ADRENALS: Normal. KIDNEYS: No mass or hydronephrosis. No calculus i dentified. Too small to characterize probable 4 mm cyst noted in the lateral int erpolar right kidney.GI: The patient has a Jaycob-en-Y gastric bypass which had p reviously been in the abdomen on March 2019 exam with a gastrostomy tube in th e gastric remnant with moderate fluid on that exam. The gastrostomy tube is no l onger visualized but there is stable prominent fluid through the gastric remnant . The gastric bypass now appears to lie in the inferior chest with prominent hig h density noted within the esophagus which appears thickened. There also appears to be a large active leak present with contrast and gas external to the bypass limb outlining the left hemithorax with associated left-sided pneumothorax. Amadeo tional gas is noted in the upper abdomen beneath the hemidiaphragm (sagittal derik ge 50 for example), some gas tracking along the IVC and right lynn of the diaphr agm. Bowel loops within the abdomen are otherwise unremarkable apart from divert iculosis.VASCULAR: Mild/moderate scattered atherosclerotic plaque with limited evaluation.LYMPH NODES: No enlarged lymph nodes in the abdomen or pelvis.PELVIS : No lymphadenopathy or abnormal fluid collection. No significant free fluid t hrough the pelvis. Urinary bladder is collapsed with Lechuga catheter in place wit h intraluminal gas noted probably related to catheter placement.MUSCULOSKELETAL: Moderate spondylosis of the thoracolumbar spine is present with mild hip osteo arthrosis.OTHER: Pneumoperitoneum is present likely dissecting from the chest i nto the upper abdomen given retraction of the patient's gastric bypass and defin ite esophageal anastomosis into the chest. IMPRESSION:1.Findings consis tent with active leak probably about the gastroenteric anastomosis of a retracte d gastric bypass into the lower chest with associated left-sided hydropneumothor ax and active leak near the gastroesophageal junction, the distinct leak point n ot well-defined given distortion of bowel in this region.2.Small pneumoperitoneu m dissecting into the upper abdomen from aforementioned GE junction leak with hi atal hernia.3.No acute abnormality identified in bowel loops within the abdomen or pelvis. No significant free fluid.4.Incidental findings as described.COMMUNIC ATION: The findings and their associated recommendations were discussed with Dr Cardona in [facility] ED by phone with their acknowledgment at 5:[address] surgery and gen eral surgery are involved in the patient's care and Dr Brendan rodríguez offered to [facility] with them regarding the suspected perforation of this patient still in the ED .*[id number] VywdlvoqnT-pbmsy3694-65-22 15:59:44* Test Item Value Reference Range Interpretation Comments D-dimer (test code = 09825-3) 1.24 0.00- 0.40 ug/mL FEU H Units are ug/ml Fibrinogen Equivalent Unit.When combined with low clinical probability, D-dimer results of less than 0.5 ug/ml FEU have a good negative predictive value in excluding PE or DVT. For D-dimer results greater than 0.5 ug/ml FEU further testing is indicated if PE or DVT is suspected clinically.Elevated D-dimer results have been reported in DVT, PE, and DIC cases and may indicate the pre sence of a clot. D-dimer results may be elevated due to old age, , inflammatory diseases, trauma, post-operative states, sepsis, and malignancies. Lab Interpretation (test code = 67889-2) Abnormal [place] MethodistOccult blood, [id number] 11:34:08* Test Item Value Reference Range Interpretation Comments Occult blood, stool (test code = 2334-1) Negative for occult blood. Specimen InformationSpecimen Source: StoolSpecimen Site: Nonpreserved [place] MethodistLipase [id number] 10:31:37* Test Item Value Reference Range Interpretation Comments Lipase (test code = 3040-3) 8 U/L 13-60 L Lab Interpretation (test code = 88816-8) Abnormal [place] MethodistChest Tube [id number] 09:24:33Miguel Celeste MD 09/14/2019 12:26 PMChest Tube InsertionPerformed by: Miguel Celeste MDAuthorized by: Miguel Celeste MD Consent: Consent obtained: Verbal Consent given by: Patient Risks discussed: Bleeding, incomplete drainage, pain and damage to surrounding structures Alternatives discussed: Delayed treatmentUniversal protocol: Procedure explained and questions answered to patient or proxy's satisfaction: yes Relevant documents present and verified: yes Test results available and properly labeled: yes Imaging studies av ailable: yes Required blood products, implants, devices, and special equipmen t available: yes Site/side marked: yes Immediately prior to procedure a ti me out was called: yes Patient identity confirmed: Verbally with patient and arm bandPre-procedure details: Skin preparation: Betadine and ChloraprepSeda tion: Sedation type: Narcotic Narcotic(s) used:: FentanylAnesthesia (see MA R for exact dosages): Anesthesia method: Local infiltration Local anesthetic : Lidocaine 1% WITH epiProcedure details: Placement location: L lateral Sca lpel size: 11 Tube size (Fr): 40 Dissection instrument: Lazara clamp and fin kandice Ultrasound guidance: no Tension pneumothorax: no Tube connected to: Heimlich valve and water seal Drainage characteristics: Air only Suture mater ial: 0 silk Dressinx4 sterile gauze and petrolatum-impregnated gauzePost- procedure details: Post-insertion x-ray findings: tube in good position Pat ient tolerance of procedure: Tolerated well, no immediate complicationsB[facility] [id number] 09:24:33Miguel Celeste MD 09/14/2019 12:26 PMCentral LinePerformed by: Miguel Celeste MDAuthorized by: Miguel Celeste MD Consent: Consent given by: Patient Risks discussed: Arterial puncture, pneumothorax, bleeding and infection Alternatives discussed: Delayed treatment and observationUniversal protocol: Relevant documents present and verified: yes Test results available and properly labeled: yes Imaging studies available: yes Site/side marked: yes Immediately prior to procedure, a time out was called: yes Patient identity confirmed: Hospital-assigned identification number and arm bandPre-procedure details: Hand hygiene: Hand hygiene performed prior to insertion Sterile barrier technique: All elements of maximal sterile technique followed Skin preparation: 2% chlorhexidine Skin preparation agent: Skin preparation agent completely dried prior to procedure Anesthesia (see MAR for exact dosages): Anesthesia method: Local infiltration Local anesthetic: Lidocaine 1% w/o epiProcedure details: Catheter type: Triple lumen Catheter size: 8.5 Fr Catheter length (cm): 17 Catheter site: internal jugular vein Catheter Site Laterality: Right Patient position: Flat Landmarks identified: yes Ultrasound guidance: yes Sterile ultrasound techniques: Sterile gel and sterile probe covers were used Number of attempts: 1 Successful placement: yes Post-procedure details: Post-procedure: Dressing applied and line sutured Assessment: Blood return through all ports, free fluid flow, no pneumothorax on x-ray and placement ve rified by x-ray Patient tolerance of procedure: Tolerated well, no immediate c omplicationsHouston MethodistCRITICAL [id number] 09:24:33Miguel Celeste MD 09/14/2019 12:26 PMCritical CarePerformed by: Miguel Celeste MDAuthorized by: Miguel Celeste MD Critical care provider statement: Critical care time (minutes): 93 Critical care time was exclusive of: Sepa rately billable procedures and treating other patients Critical care was necess vic to treat or prevent imminent or life-threatening deterioration of the follow ing conditions: [employer]ED failure or compromise, circulatory failure, renal failure, sepsis, shock and dehydration Critical care was time spent personally by me on the following activities: Development of treatment plan with patient or surroga te, discussions with primary provider, evaluation of patient's response to treat ment, examination of patient, obtaining history from patient or surrogate, re-ev aluation of patient's condition, pulse oximetry, ordering and review of radiogra phic studies, ordering and review of laboratory studies, ordering and performing treatments and interventions and discussions with consultants Hiro 'yes' if you are taking over critical care for this patient from another provider.: no [place] [facility] Preliminary Interpretation - Not an [id number] 09:24:33Miguel Celeste MD 09/14/2019 12:26 [facility] [place] Preliminary Interpretation - Not an OrderPerformed by: Miguel Celeste MDAuthorized by: Miguel Celeste MD ECG reviewed by ED Physician in the absence of a cut tobacco bulker: yes Previous ECG: Previous ECG: Compared to current Comparison ECG info: EKG 03/18/19: previously tachycardic Similarity: Changes notedInterpretation: Interpretation: normal Rate: ECG rate: 139 ECG rate assessment: tachycardic Rhythm: Rhythm: atrial fibrillation Rhythm comment: With RVREctopy: Ectopy: none QRS: QRS axis: Normal QRS intervals: NormalConduction: Conduction: normal ST segments: ST segments: Abnormal Depression: V3, V4, II and aVFT waves: T waves: inverted Inverted: V3, V4, V5, I, II, III and aVFOther findings: Other findings: prolonged qTc interval [place] [facility] centerLar [facility] Arthrocentesis: shoulder, L subacromial [id number] 09:15:00Hiro Cruz MD 04/14/2019 9:55 AMLarge Joint Arthrocentesis: shoulder, L subacromial bursaConsent given by: patientSupporting DocumentationIndications: pain Procedure DetailsLocation: shoulder - L subacromial bursa Left side:Needle size: 22 GApproach: posteriorLeft shoulder medications administered: 80 mg methylPREDNISolone acetate 80 mg/mL; 3 mL lidocaine 10 mg/mL (1 %) [place] [facility] Abdom[facility] Pelvis W [id number] 07:58:27Hm Interface, Radiology Results 03/26/2019 8:01 AM CSTEXAMINATION: CT ABDOMEN PELVIS W CONTRASTCLINICAL HISTORY: rule out undrained fluid collectionTECHNIQUE: Multiple axial images of the abdomen and pelvis were obtained following intravenous administration of iodinated contrast. CT imaging was performed with iterative reconstruction technique and/or automated exposure control to reduce radiation dose.COMPARISON: March 18, 2019FINDINGS:LOWER THORAX:Moderate left and small right pleural effusions and adjacent volume loss. Superimposed consolidative opacities of the right lower lobe.ABDOMEN:Liver: The liver is normal. No focal mass.Gallbladder: The gallbladder is normal.Spleen: Not enlarged. Small amount of rim-enhancing pericolonic fluid is present.Pancreas: Fatty infiltration. No ductal dilation.Adrenal Glands: The adrenal glands are unremarkable.Kidneys: No mass or hydronephrosis. Subcentimeter hypodense lesions in the right lower pole are too small to characterize.Abdominal Aorta: Scattered aortoiliac calcifications. No aneurysm.Nodes: A few prominent retroperitoneal lymph nodes are noted which are nonspecific.Bowel: Redemonstration of postsurgical changes related the prior gastric bypass. A small 5.3 x 1.4 cm, lentiform fluid collection is seen along the lateral aspect of the greater curvature along the course of the prior esophageal surgical drain and gastrojejunostomy. A percutaneous gastrostomy catheter is seen within the remnant stomach.No bowel obstruction. Jejunojejunos idalmis in the left mid abdomen, unremarkable. Degree of small bowel dilatation has slightly decreased in the interim. Moderate amount of stool is seen throughout the colon. Colonic diverticulosis without evidence of acute diverticulitis. Appe ndix is normal.Other: Trace perihepatic ascites, relatively similar to prior. A right lateral approach surgical drain terminates in the left upper abdomen at th e level of the splenic flexure.PELVIS:Pelvis: Hysterectomy. Urinary bladder is g rossly unremarkable.Bones and soft tissues: Degenerative changes of the osseous structures. No suspicious lesions. Unchanged body wall edema.IMPRESSION:1.Tiny p eripherally enhancing, air-containing fluid collection along the course of the p rior esophageal drain, extending along the gastrojejunostomy.2.Tiny perisplenic fluid collection is now rim-enhancing. Superimposed would be difficult to exclud e.3.Moderate left and small right effusions, adjacent atelectasis and right lowe r lobe pneumonia/aspiration.[facility]-[id number] MethodistEchocardiogram complete w contrast and 3D if [id number] 18:59:08* Test Item Value Reference Range Interpretation Comments Ao Root Diameter (test code = 8480131239) 3.70 cm AoV Area, Vmax (test code = 8495274413) 2.86 cm2 AoV Area, VTI (test code = 0536463592) 2.71 cm2 AoV Mean PG (test code = 2005845352) 2.34 mmHg AoV Peak PG (test code = 4336708010) 3.73 mmHg AoV Vmax (test code = 9115057577) 0.98 m/s AoV VTI (test code = 6063331999) 0.20 m BSA Bishop (test code = 5394121170) 1.55 m2 BSA (test code = 8440947856) 1.58 m2 IVS,d (test code = 3646222501) 0.82 cm IVS/LVPW,2D (test code = 2729467422) 1.02 Left Atrium Dimension Anterior (test code = 2910034552) 4.41 cm LV,d (test code = 4412192649) 4.39 cm LV EF,2D (test code = 1069103779) 64.75 % LV,s (test code = 3838458810) 3.10 cm LVOT area (test code = 1058951795) 3.20 cm2 LVOT Diam,S (test code = 2790233575) 2.02 cm LVOT Vmax (test code = 7846937737) 0.86 m/s LVOT VTI (test code = 6996021956) 0.16 m LVPWD,d (test code = 0757573748) 0.80 cm TR Vpeak (test code = 0894958553) 3.48 mm/s MV E A ratio (test code = 5448855569) 1.12 TR pk grad (test code = 0297465028) 43.71 mmHg AoV area i VTI BSA Tipton (test code = 6881024145) 1.72 cm2/m2 BMI (test code = 9439101057) 18.56 kg/m2 E wave decelartion time (test code = 8672917003) 166.82 msec MV Peak A Gustavo (test code = 5328861182) 0.57 m/s MV valve area p 1/2 method (test code = 0289258727) 4.55 cm2 MV Peak E Gustavo (test code = 4113116508) 0.63 m/s MV stenosis pressure 1/2 time (test code = 3591467619) 48.38 ms AV LVOT peak gradient (test code = 5061186804) 2.99 mmHg Ao Root Diameter (test code = 3255250684) 3.70 cm MV mean gradient (test code = 5250008186) 1.33 mmHg LV SYS VOL (test code = 3637234185) 38.04 ml LV FARRIS VOL (test code = 6044144367) 87.44 ml LA area s A4C (test code = 3604257061) 20.69 cm2 LV SI Teich 2D (test code = 4462440359) 31.24 ml/m2 LV SV Teich 2D (test code = 3681735936) 49.39 ml LV Vol s Teich PSAX (test code = 4287001659) 38.04 ml LVOT CI (test code = 4770194181) 2.99 l/min/m2 LVOT CO (test code = 9683090232) 4.73 l/min LVOT HR for LVOT CO (test code = 9446464577) 90.60 bpm LVOT SI (test code = 7999127741) 33.04 ml/m2 MR peak grad (test code = 3663150916) 2.65 mmHg MV Vmax (test code = 2864769304) 0.81 m MV VTI Tips (test code = 5497995553) 0.15 m BSA Haycock (test code = 5498333220) 1.55 m2 AoV Vmn (test code = 8158551700) 0.74 IVS s 2D (test code = 1831214319) 1.00 LV FS Teich 2D (test code = 3887806552) 29.36 MV AE ratio (test code = 7291322817) 0.89 LV FS Cube 2D (test code = 8663491210) 29.36 LVOT Vmn (test code = 0491948122) 0.66 Pt Size (test code = 0359353323) 167.64 Pt Wt (test code = 1832011774) 52.16 Aov area Vmn (test code = 9631135081) 3.05 cm2 LA A_P score P (test code = 3964179747) 4.02 LVOT mean grad (test code = 6570058788) 1.84 mmHg MAX Pred HR (test code = 4810540977) 149.72 85 of MPHR (test code = 1730134870) 127.26 AoV area I VMN bsa (test code = 4730490512) 1.93 cm2/m2 Calc MPHR (test code = 0676853819) 149.72 bpm IVS pct thck PLAX (test code = 8062611868) 21.71 % LV SI Cube 2D (test code = 6818249123) 34.76 ml/m2 LV SV Cube 2D (test code = 6956369967) 54.96 ml LV vol d cube 2D (test code = 1609367215) 84.87 ml LV vol s cube 2D (test code = 1572870703) 29.91 ml LVPW pct thck PLAX (test code = 6223739583) 22.38 % LVPW s PLAX (test code = 6627550636) 0.98 cm MV Decel slope (test code = 7820620839) 3.79 m/s2 Pred Exer Dur R1 (test code = 7342500830) 6.79 Pred METS R1 (test code = 9834959768) 5.56 LA Vol MOD A4C (test code = 1361390029) 55.18 ml Velocity Ratio (V1/V2) (test code = 4689) 0.88 m/s EF (test code = 3974549600) 56.50 % E/A ratio (test code = 9910382735) 1.11 HALLIE (test code = HALLIE) Left ventricular systolic function is normal. Left Ventricular ejection fraction is 60 - 65%. There is mild sclerosis of the aortic valve leaflets. Moderate-severe tricuspid valve regurgitation. [place] MethodistAmylase [id number] 12:42:25* Test Item Value Reference Range Interpretation Comments Amylase (test code = 1798-8) 22 U/L 28-100 L Lab Interpretation (test code = 63943-0) Abnormal [place] MethodistNicotine and cotinine, [id number] 19:18:54* Test Item Value Reference Range Interpretation Comments Nicotine (test code = 3853-9) <2.0 0-1.9 Cotinine (test code = 06814-2) <2.0 0-1.9 This test was developed and its performance characteristics determined by the Department of Pathology and Genomic Medicine, [facility]. Serum nicotine and metabolite cotinine are tested by HPLC tandem mass spectrometry. It has not been cleared or approved by FDA. The laboratory is regulated under CLIA as qualified to perform high-complexity testing. This test is used for clinical purposes. It should not be regarded as investigational or for research. [facility] Pe [id number] 10:35:33Hm Interface, Radiology Results 03/18/2019 10:38 AM CSTEXAMINATION: CT ANGIOGRAM PE CHESTCLINICAL HISTORY: tachycardia and recent surgery rule out PETECHNIQUE: PE PROTOCOL: CT angiographic images of the chest were obtained during intravenous administration of iodinated contrast. Computerized reformatted images and 3-D MIP images were also obtained and archived (CT pulmonary embolus protocol). CT imaging was performed with iterative reconstruction technique and/or automated exposure control to reduce radiation dose.COMPARISON: No prior IMPRES WAYNE:CHEST:1. Pulmonary Arteries: No definite CT scan evidence of acute pulmonar y embolus. Mildly enlarged measuring 3.6 cm. 2. Aorta: The thoracic aorta is non aneurysmal3. Heart: The heart is marginal in size.4. Pericardial Fluid: Tiny 5. Mediastinum: No enlarged mediastinal or hilar lymphadenopathy. No mediastinal ma ss.4. Airways: Central airways are patent.5. Lungs: Lower lobe atelectasis, left greater than right with small right and dwppj-jp-ccreufvt left pleural effusion. Minimal biapical pleural and parenchymal scarring. No focal infiltrates. Pulmo nary vasculature is within normal limits. 6. Pleural Fluid: Small right and smal z-di-pkazeray left pleural effusions. 7. Bones: Degenerative changes of the osse ous structures. No suspicious lesions.8. Upper Abdomen: History of recent abdomi nal surgery. Postsurgical changes associated with the stomach with nasogastric t ube, gastrostomy tube and left upper quadrant catheter at the margin of the fiel d-of-view. Mild anasarca. Minimal air in the soft tissues of the left flank from recent surgery. 9. Other Findings: NoneSUMMARY:1.No CT scan evidence of acute p ulmonary embolus. Pulmonary artery hypertension.2.Bibasilar atelectasis and effu sions, left greater than right. No focal infiltrates.3.Status post upper abdomin al gastric surgery as above. [facility]-[id number] CsxsmmihuHoftao1747-62-91 20:21:12Herbie Lopez MD 03/15/2019 8:22 PMAirwayDate/Time: 03/15/2019 8:06 PMPerformed by: Herbie Lopez MDAuthorized by: Herbie Lopez MD Location: ORUrgency: ElectiveDifficult Airway: No Anesthesiologist: Herbie Lopez MDPerformed by: anesthesiologistPreoxygenated with 100% O2: Yes Mask Ventilation: Not attemptedFinal Airway Type: Endotracheal airwayFinal Endotracheal Airway: ETTCuffed: Yes Technique Used: Direct laryngoscopyDevices/Methods Used in Placement: Intubating styletInsertion Site: OralBlade Type: MacintoshLaryngoscope Blade/Videolaryngoscope Blade Size: 3ETT Size (mm): 7.0Placement Verified by: CO2 detection, direct visualization and equal breath sounds Laryngoscopic view: Grade IIa - partial view of glottisRapid Sequence Induction (RSI): Yes Modified RSI: No Number of Attempts at Approach: 1 [facility] [id number] 11:35:19Miguel Celeste MD 03/15/2019 7:03 PMCritical CarePerformed by: Miguel Celeste MDAuthorized by: Miguel Celeste MD Critical care provider statement: Critical care time (minutes): 95 Critical care time was exclusive of: Separately billable procedures and treating other patients Critical care was necessary to treat or prevent imminent or life-threatening deterioration of the following conditions: Dehydration, sepsis, shock and circulatory failure Critical care was time spent personally by me on the following activities: Development of treatment plan with patient or surrogate, discussions with primary provider, evaluation of patient's response to treatment, examination of patient, obtaining history from patient or surrogate, re-evaluation of patient's condition, pulse oximetry, ordering and review of radiographic studies, ordering and review of laboratory studies, ordering and performing treatments and interventions and discussions with consultants Hiro 'yes' if you are taking over critical care for this patient from another provider.: cassidy Hanks
[2020-01-05 05:19] LABS: INR 2.91; PROTHROMBIN TIME 31.8 seconds (11.9-14.5)
[2020-01-05 05:20] LABS: PARTIAL THROMBOPLASTIN TIME 78.5 seconds (23.8-35.5)
[2020-01-05 05:26] LABS: ALANINE AMINOTRANSFERASE 409 IU/L (0-55); ALBUMIN 2.1 g/dL (3.5-5.0); ALBUMIN/GLOBULIN RATIO 0.5 (0.8-2.0); ALKALINE PHOSPHATASE 1046 IU/L (40-150); ANION GAP 28.9 mmol/L (8-16); BLOOD UREA NITROGEN 18 mg/dL (7-26); BUN/CREATININE RATIO 24 (6-25); CALCIUM 10.1 mg/dL (8.4-10.2); CARBON DIOXIDE 21 mmol/L (22-29); CHLORIDE 89 mmol/L (98-107); CREATINE KINASE 138 IU/L (29-168); CREATININE, SERUM 0.74 mg/dL (0.57-1.11); EST GLOMERULAR FILTRATION RATE > 60 ML/MIN (60-); POTASSIUM 5.9 mmol/L (3.5-5.1); SODIUM 133 mmol/L (136-145)
[2020-01-05 05:27] LABS: GLUCOSE 51 mg/dL (74-118)
[2020-01-05] MEDS ORDERED: SODIUM BICARBONATE 8.4% SYRING 50 ML ONE (05:38)
[2020-01-05] MEDS ORDERED: NOREPINEPHRINE INJ 4MG/4ML 8 MG in DEXTROSE 5% 250ML 250 ML IV SCH (05:40)
[2020-01-05 05:48] LABS: ABG PCO2 130 mmHg (35-45); ABG PO2 49 mmHg (80-105)
[2020-01-05] MEDS ORDERED: NOREPINEPHRINE 8 MG/D5W 250 ML 250 ML ONE (05:48)
--- NOTE | 2020-01-05 06:00 | NUR ---
BRADYCARDIA FIRST NOTED AT 0456 HR 36 BPM, PER MD ORDERS EPI AND ATROPINE ADMINISTERED; MULTIPLE EPISODES OF BRADYCARDIA NOTED, SEE EMAR FOR ADMINISTRATION TIMES OF ORDERED MEDICATIONS PER ER MD.
--- NOTE | 2020-01-05 06:01 | Emergency Department Note ---
History of Present Illnes History of Present Illness History of Present Illness This is a 69 year old female presents in cardiac arrest. PEA per EMS x [address] and performing compressions. 5 rounds epi Arrival Mode: [facility] Treatment ACCOUNT ADJUSTER: IV, O2, Backboard, See EMS Report History limited by: other () Teletypewriter Installer Required: No Onset (how long ago): hour(s) (1) Radiation: Reports other Severity: unable to specify Onset quality: sudden Duration (how long): hour(s) (1) Timing of current episode: unable to specify Progression: unable to specify Chronicity: new Context: Reports recent illness, Reports recent surgery Relieving factors: none Exacerbating factors: none Treatments prior to arrival: other (epi) Past Medical/Family History Physician Review I have reviewed the patient's past medical and family history. Any updates have been documented here. Review of Systems ROS Narrative Unable to obtain ROS: critical patient Physical Exam Related Data Unable to obtain allergies: Unable to obtain due to, critical patient Vital signs reviewed: Yes Physical Exam CONSTITUTIONAL Constitutional: Present ill appearing HENT HENT: Present normocephalic, Present atraumatic, Present nose normal, Present other (Tube coming out of neck) HENT L/R: Present left ext ear normal, Present right ext ear normal EYES Eyes: Reports PERRL, Reports conjunctivae normal NECK Neck: Present ROM normal PULMONARY Pulmonary: Present effort normal, Present breath sounds normal CARDIOVASCULAR Cardiovascular: Present regular rhythm, Present heart sounds normal, Present capillary refill normal, Present normal rate GASTROINTESTINAL Abdominal: Present soft, Present other (PEG tube) GENITOURINARY Genitourinary: Present exam deferred SKIN Skin: Present warm, Present dry MUSCULOSKELETAL Musculoskeletal: Absent deformity, Absent swelling NEUROLOGICAL Neurological: Present other (Non responsive) PSYCHOLOGICAL Psychological: Present other (Non responsive) Results Laboratory Result Diagram: 01/05/20 0458 01/05/20 0458 Laboratory Laboratory Tests Test 01/05/20 05:25 01/05/20 04:58 Arterial Blood pH 6.80 (7.35-7.45) Arterial Blood Partial Pressure CO2 130 mmHg (35-45) Arterial Blood Partial Pressure O2 49 mmHg (80-105) FiO2 100 % White Blood Count 20.97 x10e3/uL (4.8-10.8) Red Blood Count 3.43 x10e6/uL (3.6-5.1) Hemoglobin 10.1 g/dL (12.0-16.0) Hematocrit 36.1 % (34.2-44.1) Mean Corpuscular Volume 105.2 fL (81-99) Mean Corpuscular Hemoglobin 29.4 pg (28-32) Mean Corpuscular Hemoglobin Concent 28.0 g/dL (31-35) Red Cell Distribution Width 17.5 % (11.7-14.4) Platelet Count 324 x10e3/uL (140-360) Neutrophils (%) (Auto) 50.7 % (38.7-80.0) Lymphocytes (%) (Auto) 27.8 % (18.0-39.1) Monocytes (%) (Auto) 6.6 % (4.4-11.3) Eosinophils (%) (Auto) 7.2 % (0.0-6.0) Basophils (%) (Auto) 0.7 % (0.0-1.0) Neutrophils # (Auto) 10.6 (2.1-6.9) Lymphocytes # (Auto) 5.8 (1.0-3.2) Monocytes # (Auto) 1.4 (0.2-0.8) Eosinophils # (Auto) 1.5 (0.0-0.4) Basophils # (Auto) 0.2 (0.0-0.1) Absolute Immature Granulocyte (auto 1.47 x10e3/uL (0-0.1) Prothrombin Time 31.8 seconds (11.9-14.5) Prothromb Time International Ratio 2.91 Activated Partial Thromboplast Time 78.5 seconds (23.8-35.5) D-Dimer Quantitative (PE/DVT) > 5000 ng/mL (0-400) Sodium Level 133 mmol/L (136-145) Potassium Level 5.9 mmol/L (3.5-5.1) Chloride Level 89 mmol/L (98-107) Carbon Dioxide Level 21 mmol/L (22-29) Anion Gap 28.9 mmol/L (8-16) Blood Urea Nitrogen 18 mg/dL (7-26) Creatinine 0.74 mg/dL (0.57-1.11) Estimat Glomerular Filtration Rate > 60 ML/MIN (60-) BUN/Creatinine Ratio 24 (6-25) Glucose Level 51 mg/dL (74-118) Lactic Acid Level > 13.4 mmol/L (0.5-2.0) Calcium Level 10.1 mg/dL (8.4-10.2) Total Bilirubin 1.0 mg/dL (0.2-1.2) Aspartate Amino Transf (AST/SGOT) 723 IU/L (5-34) Alanine Aminotransferase (ALT/SGPT) 409 IU/L (0-55) Alkaline Phosphatase 1046 IU/L (40-150) Creatine Kinase 138 IU/L (29-168) Creatine Kinase MB 3.60 ng/mL (0-5.0) Troponin I 0.110 ng/mL (0-0.300) Total Protein 6.7 g/dL (6.5-8.1) Albumin 2.1 g/dL (3.5-5.0) Globulin 4.6 g/dL (2.3-3.5) Albumin/Globulin Ratio 0.5 (0.8-2.0) Procedures Central Line Placement Central Line Location: left femoral Time out performed: No Patient Placed on Monitor/Puls: Yes MD Prep: mask, gloves Central Line Prep: Chlorhexidine scrub Ultrasound Used for Placement: Yes Central Line Lumen Inserted: triple Post Procedure: sutured in place, good blood return, all ports aspirated/flushed/capped, sterile dressing applied Complications: none Intubation Time out performed: No Sedative: none Paralytic: other (None) Laryngoscope: Nata (4) Endotracheal tube size: 7.5 ET tube uncuffed: Yes Tube secured location: lips Tube placement confirmation: visualize tube passing cords Patient tolerated procedure: no complications Complications: none Assessment & Plan Medical Decision Making [facility] 69 y.o F presents PEA. Given multiple doses epi and starte don epi drip. ROSC on initial epi drip. BP tenuous. L fem placed. See labs for many abn. 1g CaChlor given, 3Amp Bicarb. 1L bolus. Discussed with Dr. Caceres and Dr. Beatty. Admit to ICU. Reassessment Reassessment time: 06:01 Reassessment Critical Assessment & Plan Final Impression: (1) Cardiac arrest Depart Disposition: ADMITTED Medications in the ED Epinephrine HCl 4 mg/Dextrose 254 ml @ 0 mls/hr TITRATE PRN IV hr; Start 01/05/20 at 05:00; Stop 11/13/20 at 04:59 Sodium Chloride 2,000 ml @ ud STK-MED ONCE .ROUTE ; Start 01/05/20 at 05:06; Stop 01/05/20 at 04:59; Status DC Dextrose 250 ml @ ud STK-MED ONCE IV ; Start 01/05/20 at 05:08; Stop 01/05/20 at 05:01; Status DC Epinephrine HCl 4 mg STK-MED ONCE .ROUTE ; Start 01/05/20 at 05:09; Stop 01/05/20 at 05:02; Status DC Sodium Bicarbonate 50 ml @ ud STK-MED ONCE .ROUTE ; Start 01/05/20 at 05:38; Stop 01/05/20 at 05:31; Status DC Norepinephrine Bitartrate 250 ml @ ud STK-MED ONCE .ROUTE ; Start 01/05/20 at 05:48; Stop 01/05/20 at 05:42; Status DC MYRIAM SALDAÑA MD Jan 05, 2020 06:01
--- OUTSIDE RECORDS SUMMARY | 2020-01-05 06:02 | XMS REPORT | Clinical Summary ---
Author Author [facility] Address Unknown Phone Unavailable Care Team Providers Care Email Marketing Specialist Name Role Phone Halima Kern MD PCP Allergies No Known Active Allergies Medications End Date Status Medication Sig Dispensed Refills Start Date Active apixaban (ELIQUIS) 5 mg Take 1 tablet 0 tablet (5 mg total) 0 by mouth 2 (two) times a day. 12/05/2020 Active bisacodyL (DULCOLAX) 10 Insert 1 0 mg suppository suppository 0 (10 mg total) into the rectum daily as needed for constipation for up to 30 days. Active budesonide (PULMICORT) Take 2 mL 0 02 0.5 mg/2 mL nebulizer (0.5 mg 0 solutionIndications: total) by Respiratory failure nebulization requiring intubation 2 (two) times (HCC) a day. Active pantoprazole 4 mg/mL in Infuse 10 mL 1 each 0 0 sodium chloride injection (40 mg total) 0 into a venous catheter daily before breakfast. 01/26/2020 Active zinc oxide 20 % ointment Apply 56.7 g 0 1 topically 3 0 (three) times a day as needed for irritation for up to 30 days. 01/26/2020 Active vitamin A & D ointment Apply 45 g 0 topically as 0 needed for dry skin for up to 30 days. 01/27/2020 Active sertraline (ZOLOFT) 25 MG Take 1 tablet 30 tablet 0 tablet (25 mg total) 0 by mouth daily for 30 days. 01/26/2020 Active phenol (CHLORASEPTIC) 1.4 Apply 1 spray 0 10/0 /202 % aerosol,spray to the mouth 0 or throat every 6 (six) hours as needed (sore throat) for up to 30 days. 01/26/2020 Active ondansetron (ZOFRAN) 4 Infuse 2 mL 20 mL 0 mg/2 mL injection (4 mg total) 0 into a venous catheter every 8 (eight) hours as needed for nausea or vomiting for up to 30 days. 01/26/2020 Active midodrine (PROAMATINE) 5 Take 1 tablet 90 tablet 0 MG tablet (5 mg total) 0 by mouth every 8 (eight) hours for 30 days. 01/27/2020 Active levothyroxine (SYNTHROID) 1 tablet (200 30 tablet 0 200 mcg tablet mcg total) by 0 g-tube route daily for 30 days. 01/27/2020 Active furosemide (LASIX) 20 mg Take 1 tablet 30 tablet 0 tablet (20 mg total) 0 by mouth daily for 30 days. 01/26/2020 Active flecainide (TAMBOCOR) 100 Take 1 tablet 60 tablet 0 MG tablet (100 mg 0 total) by mouth every 12 (twelve) hours for 30 days. 01/06/2020 Active clonAZEPAM (KlonoPIN) 1 Take 1 tablet 0 MG tablet (1 mg total) 0 by mouth 2 (two) times a day for 10 days. 01/26/2020 Active acetaminophen (TYLENOL) Take 31.23 mL 0 650 mg/20.3 mL solution (1,000 mg 0 total) by mouth every 8 (eight) hours as needed (mild pain) for up to 30 days. Active oxymetazoline (AFRIN) 2 sprays into 0 12/27/19 2 0.05 % nasal spray each nostril 0 2 (two) times a day. 01/26/2020 Active OLANZapine zydis Take 1 tablet 30 tablet 0 02 (ZyPREXA) 5 MG (5 mg total) 0 disintegrating tablet by mouth nightly for 30 days. 01/26/2020 Active ipratropium (ATROVENT) Take 2.5 mL 0 02 0.02 % nebulizer (0.5 mg 0 solutionIndications: total) by Esophageal abnormality nebulization every 6 (six) hours while awake for 30 days. 02/16/2020 Active cyanocobalamin 1,000 Inject 1 mL 1 mL 0 01/16 mcg/mL injection (1,000 mcg 0 total) into the shoulder, thigh, or buttocks every 28 days for 30 days. 11/05/2019 Discontinued (Stop Taking at Discharge) cyanocobalamin, vitamin Place under 0 B-12, (VITAMIN B-12) the tongue 1,000 mcg tablet, daily. sublingual 11/05/2019 Discontinued (Stop Taking at Discharge) FOLIC Take 1 tablet 0 ACID/MULTIVIT-MIN/LUTEIN by mouth (CENTRUM SILVER ORAL) daily. 11/05/2019 Discontinued (Stop Taking at Discharge) calcium citrate-vitamin Take 1 tablet 0 D3 (CITRACAL+D) 315-200 by mouth mg-unit per tablet daily. 11/05/2019 Discontinued (Stop Taking at Discharge) ferrous sulfate 325 (65 Take 325 mg 0 FE) MG tablet by mouth daily with breakfast. 11/05/2019 Discontinued (Stop Taking at Discharge) cholecalciferol, vitamin Take 1,000 0 D3, (VITAMIN D3) 1,000 Units by unit capsule mouth daily. 11/05/2019 Discontinued (Stop Taking at Discharge) atorvastatin (LIPITOR) 20 Take 20 mg by 0 MG tablet mouth daily. Default OP ins 08/23/2019 Discontinued (Reorder) tiZANidine (ZANAFLEX) 4 Take 4 mg by 0 MG tablet mouth nightly. 1/2 tab every 8 hours 11/05/2019 Discontinued (Stop Taking at Discharge) dicyclomine (BENTYL) 10 Take 20 mg by 0 mg/5 mL syrup mouth 4 (four) times a day before meals and nightly. 03/29/2019 Discontinued (Reorder) TPN FOR DISCHARGE See most 1 Package 0 09/08/19 1 recent TPN 9 order. 11/05/2019 Discontinued (Stop Taking at Discharge) sucralfate (CARAFATE) 1 Take 1 tablet 360 tablet 2 gram tablet (1 g total) 9 by mouth 4 (four) times a day. 05/23/2019 Discontinued (Reorder) diclofenac (VOLTAREN) 1 % Apply 100 g 3 gelIndications: Chronic topically 4 9 left shoulder pain (four) times a day. 03/31/2019 escitalopram (LEXAPRO) 10 Take 1 tablet 90 tablet 0 MG tabletIndications: (10 mg total) 9 Current moderate episode by mouth of major depressive daily for 90 disorder without prior days. episode (HCC) 03/31/2019 mirtazapine (REMERON) 45 Take 1 tablet 90 tablet 0 MG tabletIndications: (45 mg total) 9 Current moderate episode by mouth of major depressive nightly for disorder without prior 90 days. episode (HCC) 01/19/2019 Discontinued (Reorder) ondansetron (ZOFRAN) 4 MG Take 1 tablet 20 tablet 1 tabletIndications: Nausea (4 mg total) 9 by mouth every 8 (eight) hours as needed for nausea or vomiting. 01/07/2019 nitrofurantoin, Take 1 14 capsule 0 macrocrystal-monohydrate, capsule (100 9 (MACROBID) 100 MG mg total) by capsuleIndications: mouth 2 (two) Urinary tract infection times a day without hematuria, site for 7 days. unspecified 01/11/2019 sulfamethoxazole-trimetho Take 1 tablet 10 tablet 0 prim (BACTRIM DS) 800-160 by mouth 2 9 mg per tabletIndications: (two) times a Urinary tract infection day for 5 without hematuria, site days. unspecified 01/19/2019 Discontinued (Reorder) promethazine (PHENERGAN) TAKE 1 TABLET 30 tablet 0 12.5 MG tablet BY MOUTH 9 EVERY 6 HOURS NEEDED FOR VOMITING 06/02/2019 Discontinued (Reorder) ondansetron (ZOFRAN) 4 MG Take 1 tablet 20 tablet 1 tabletIndications: Nausea (4 mg total) 9 by mouth every 8 (eight) hours as needed for nausea or vomiting. 02/18/2019 promethazine (PHENERGAN) Take 1 tablet 30 tablet 1 12.5 MG tablet (12.5 mg 9 total) by mouth every 6 (six) hours as needed for nausea or vomiting for up to 30 days. 04/29/2019 atenolol (TENORMIN) 25 MG 1 tablet (25 30 tablet 0 tablet mg total) by 0 g-tube route daily for 30 days. 04/28/2019 enoxaparin (LOVENOX) 40 Inject 0.4 mL 12 mL 0 mg/0.4 mL syringe (40 mg total) 0 under the skin daily for 30 days. 03/29/2019 Discontinued (Stop Taking at Discharge) HYDROcodone-acetaminophen 1 tablet by 32 tablet 0 (NORCO) 7.5-325 mg per g-tube route 0 tabletIndications: acute every 6 (six) pain hours as needed for moderate pain or severe pain for up to 8 days .acute pain. Max Daily Amount: 4 tablets 03/29/2019 Discontinued (Stop Taking at Discharge) methocarbamol (ROBAXIN) 1 tablet (500 120 tablet 0 500 MG tablet mg total) by 0 g-tube route 4 (four) times a day for 30 days. 03/29/2019 Discontinued (Stop Taking at Discharge) acetaminophen-codeine Take 1 tablet 20 tablet 0 (TYLENOL WITH CODEINE #3) by mouth 0 300-30 mg per every 4 tabletIndications: acute (four) hours pain as needed for severe pain for up to 10 days .acute pain. 11/05/2019 Discontinued (Stop Taking at Discharge) TPN FOR DISCHARGE Patient is on 1 Package 0 tube 0 feedings(see most recent orders) 11/05/2019 Discontinued (Stop Taking at Discharge) clonAZEPAM (KlonoPIN) 1 Take 1 mg by 0 MG tablet mouth 2 (two) times a day as needed for seizures. 11/05/2019 Discontinued (Stop Taking at Discharge) diclofenac (VOLTAREN) 1 % Apply 100 g 3 gelIndications: Chronic topically 4 0 left shoulder pain (four) times a day. 11/05/2019 Discontinued (Stop Taking at Discharge) ondansetron (ZOFRAN) 4 MG Take 1 tablet 20 tablet 1 tabletIndications: Nausea (4 mg total) 0 by mouth every 8 (eight) hours as needed for nausea or vomiting. 11/21/2019 tiZANidine (ZANAFLEX) 4 Take 0.5 135 tablet 0 MG tabletIndications: tablets (2 mg 0 Chronic low back pain, total) by unspecified back pain mouth every 8 laterality, unspecified (eight) hours whether sciatica present as needed for muscle spasms for up to 90 days. 08/31/2019 sulfamethoxazole-trimetho Take 1 tablet 10 tablet 0 prim (BACTRIM DS) 800-160 by mouth 2 0 mg per tabletIndications: (two) times a Urinary tract infection day for 5 without hematuria, site days. unspecified 08/26/2019 permethrin (Lice Apply 1 Bottle 1 Treatment, permethrin,) 1 topically 0 % liquidIndications: once for 1 Itchy scalp dose. 09/09/2019 ketoconazole (NIZORAL) 2 Apply 120 mL 0 0 % shampooIndications: topically 2 0 Itchy scalp (two) times a week for 14 days. Apply to damp skin, lather, leave on 5 minutes, and rinse 12/27/2019 Discontinued (Stop Taking at Discharge) acetaminophen (TYLENOL) Insert 1 0 650 MG suppository suppository 0 (650 mg total) into the rectum every 6 (six) hours as needed for fever for up to 30 days. 12/06/2019 Discontinued (Med List Clean up) acetaZOLAMIDE 500 mg in Infuse 500 mg 1 each 0 dextrose 5% 50 mL IVPB into a venous 0 catheter every 6 (six) hours. 12/27/2019 Discontinued (Stop Taking at Discharge) acetylcysteine (MUCOMYST) Take 4 mL by 0 10/22 200 mg/mL (20 %) nebulization 0 nebulizer solution every 6 (six) hours while awake. 12/27/2019 Discontinued (Stop Taking at Discharge) BUMETanide (BUMEX) 0.25 Infuse 2 mL 0 mg/mL injection (0.5 mg 0 total) into a venous catheter 2 (two) times a day. 12/27/2019 Discontinued (Stop Taking at Discharge) cyanocobalamin 1,000 Inject 1 mL 1 mL 0 11/21 mcg/mL injection (1,000 mcg 0 total) into the shoulder, thigh, or buttocks every 28 days. 12/27/2019 Discontinued (Stop Taking at Discharge) zinc oxide-cod liver oil Apply 0 11/04 (DESITIN) 40 % paste topically 3 0 (three) times a day as needed (perianal care). 12/27/2019 Discontinued (Stop Taking at Discharge) triamcinolone acetonide Apply 50 mg 0 (triamcinolone 50 mg in topically 2 0 lubriderm) 50 mg lotion (two) times a day. 11/15/2019 traMADoL (ULTRAM) 50 mg Take 1 tablet 0 tabletIndications: acute (50 mg total) 0 pain by mouth every 6 (six) hours as needed for moderate pain for up to 10 days .acute pain. 12/27/2019 Discontinued (Stop Taking at Discharge) dextrose 50% syringe Infuse 25 mL 0 (12.5 g 0 total) into a venous catheter every 20 (twenty) minutes as needed (If blood glucose is between 41-69 mg/dL). 12/27/2019 Discontinued (Stop Taking at Discharge) dextrose 10 % infusion Infuse 40 500 mL 0 mL/hr into a 0 venous catheter continuously as needed (hypoglycemia ). 12/27/2019 Discontinued (Stop Taking at Discharge) dextrose 50% syringe Infuse 50 mL 0 (25 g total) 0 into a venous catheter every 20 (twenty) minutes as needed (If blood glucose is 40 mg/dL or LESS). 12/27/2019 Discontinued (Stop Taking at Discharge) diphenhydrAMINE Infuse 0.5 mL 10 mL 0 11/05/19 2 (BENADRYL) 50 mg/mL (25 mg total) 0 injection into a venous catheter every 8 (eight) hours as needed for itching. 11/15/2019 HYDROcodone-acetaminophen Take 10 mL by 0 10/22 (HYCET) 2.5-108.3 mg/5 mL mouth every 4 0 solutionIndications: (four) hours acute pain as needed for moderate pain for up to 10 days .acute pain. Max Daily Amount: 60 mL 11/15/2019 HYDROcodone-acetaminophen Take 20 mL by 0 10/22 (HYCET) 2.5-108.3 mg/5 mL mouth every 4 0 solutionIndications: (four) hours acute pain as needed for moderate pain for up to 10 days .acute pain. Max Daily Amount: 120 mL 12/27/2019 Discontinued (Stop Taking at Discharge) insulin lispro (HUMALOG, Inject 0-7 10 mL 12 0 ADMELOG) 100 unit/mL Units under 0 injection the skin every 4 (four) hours. 12/27/2019 Discontinued (Stop Taking at Discharge) ipratropium (ATROVENT) Take 2.5 mL 75 mL 12 0.02 % nebulizer (0.5 mg 0 solutionIndications: total) by Respiratory failure nebulization requiring intubation every 6 (six) (HCC) hours. 12/27/2019 Discontinued (Stop Taking at Discharge) labetaloL (NORMODYNE) 20 Infuse 1 mL 0 11/04 mg/4 mL (5 mg/mL) syringe (5 mg total) 0 injection syringe into a venous catheter every 4 (four) hours as needed (for SBP >160; hold for hr <60). 12/27/2019 Discontinued (Stop Taking at Discharge) levothyroxine 20 mcg/mL Infuse 4 mL 0 in sodium chloride (80 mcg 0 injection total) into a venous catheter daily. 12/27/2019 Discontinued (Stop Taking at Discharge) lidocaine (LIDODERM) 5 % Place 1 patch 30 patch 0 on the skin 0 daily for 30 days. Remove & Discard patch within 12 hours or as directed by 12/27/2019 Discontinued (Stop Taking at Discharge) metoprolol tartrate Take 0.5 30 tablet 11 (LOPRESSOR) 25 mg tablet tablets (12.5 0 mg total) by mouth 2 (two) times a day. 12/27/2019 Discontinued (Stop Taking at Discharge) naloxone (NARCAN) 0.4 Infuse 0.5 mL 1 mL 0 mg/mL injection (0.2 mg 0 total) into a venous catheter once as needed for opioid reversal or respiratory depression (as needed for respiratory rate 8 per minute or less OR patient sommnolent and difficult to arouse (POSS GREATER than 3).). 12/27/2019 Discontinued (Stop Taking at Discharge) OLANZapine zydis Take 1 tablet 30 tablet 0 02 (ZyPREXA) 5 MG (5 mg total) 0 disintegrating tablet by mouth nightly for 30 days. 12/27/2019 Discontinued (Stop Taking at Discharge) ondansetron (ZOFRAN) 4 Infuse 2 mL 20 mL 0 mg/2 mL injection (4 mg total) 0 into a venous catheter every 8 (eight) hours as needed for nausea or vomiting. 12/27/2019 Discontinued (Stop Taking at Discharge) oxymetazoline (AFRIN) 2 sprays into 15 mL 0 0.05 % nasal spray each nostril 0 2 (two) times a day for 30 days. 01/02/2020 fluconazole in NaCl Infuse 200 mL 0 (DIFLUCAN) 400 mg/200 mL (400 mg 0 IVPB total) into a venous catheter daily for 5 days. Active Problems Problem Noted Date Esophageal abnormality 12/06/2019 Peripheral eosinophilia 10/25/2019 Metabolic acidosis 10/21/2019 PAF (paroxysmal atrial fibrillation) 10/21/2019 Axillary artery thrombosis, left/ S/P thrombectomy 0 10/05/2019 Hypothermia associated with surgery 10/05/2019 Anasarca 10/05/2019 Red man syndrome (suspected) 10/05/2019 Acute on chronic anemia 09/29/2019 Respiratory failure requiring intubation 09/22/2019 Severe sepsis 09/14/2019 Acute postoperative pulmonary insufficiency 09/14/19 20 S/P L thoracotomy 09/14/2019 s/p Hiatal Hernia repair with intercostal muscle flap 09/14/2019 s/p Resection of distal esophagus, gastric pouch and jejunostomy 09/14/2019 RONALD (acute kidney injury) 09/14/2019 Moderate to severe tricuspid regurgitation 0 Pulmonary hypertension 09/14/2019 Gastrointestinal hemorrhage 09/13/2019 Esophageal and gastrojejunostomhy perforation 2019 Physical deconditioning 03/28/2019 Hospital-acquired pneumonia 03/27/2019 Postoperative abdominal pain 03/27/2019 G tube feedings 03/19/2019 Macrocytic anemia 03/17/2019 Chronic marginal ulcer with perforation 03/15/2019 Overview: Added automatically from request for cha mcnulty [id number] Perforated abdominal viscus 03/15/2019 RA (rheumatoid arthritis) 12/31/2018 Essential hypertension 12/31/2018 Acquired hypothyroidism 12/31/2018 Intractable vomiting with nausea 08/31/2018 Failure to thrive in adult 07/30/2018 Acute cystitis without hematuria 07/27/2018 Rotator cuff tendonitis, left 05/18/2018 Chronic left shoulder pain 05/11/2018 Pulmonary arterial hypertension 03/24/2018 History of Lj-en-Y gastric bypass 03/24/2018 Hiatal hernia 03/24/2018 Compression deformity of vertebra 03/24/2018 Overview: T12 Marginal ulcer 01/09/2018 Gastric bypass status for obesity 08/20/2017 Depression 08/20/2017 Lumbar disc herniation 08/20/2017 Chronic back pain 08/20/2017 Anxiety 08/20/2017 Pure hypercholesterolemia 08/20/2017 PUD (peptic ulcer disease) 08/20/2017 Insomnia 08/20/2017 Hepatic steatosis 01/22/2017 Hypertension Hyperlipidemia GERD (gastroesophageal reflux disease) Gastric ulcer, chronic Clotting disorder Difficulty in swallowing Overview: NO SOLIDS. PT STATES ABLE TAKE HER MEDI CATIONS. Disease of thyroid gland Overview: subclinical hypothyroid Diverticulosis Exercises 3 to 4 times per week Overview: WALKS FOR 30 MIN. PT STATES WILL GET SO B IF SHE GOES UP TWO FLIGHTS OF STAIRS. Fractures Resolved Problems Problem Noted Date Resolved Date Shock circulatory 10/05/2019 10/21/2019 Normal anion gap metabolic acidosis 09/30/2019 Lactic acidosis 09/14/2019 09/29/2019 Leukopenia 09/14/2019 09/29/2019 Abnormal result of cardiovascular function study sugg estive of non-ST 03/19/2019 03/28/2019 elevation myocardial infarction (NSTEMI ) Encounters Care Team Description Date Type Specialty Luke Sparks MD RIGHT ROBOT-ASSISTED THORACOSCOPIC MOBIL IZATION OF ESOPHAGUS, Partial Decortication of Right Chest 2019 Surgery Cardiothoracic Surg Anant Sharp MD Guragain, Richesh, MD 2019 Anesthesia Cardiothoracic Surg Luke Wells MD Koch, Stephen M., MD Esophageal abnormality (Primary Dx); Esophageal obstruction 12/06/2019 [facility] General Internal Nc dicine - Encounter 12/27/2019 12/06/2019 Travel Jimenez Carr MD 12/06/2019 Orders Only General Internal Nc Lindsey Villatoro MD Dysphagia 11/26/2019 Hospital Radiology Encounter 11/25/2019 Travel Lindsey Hernandez MD Dysphagia (Primary Dx) 11/25/2019 Transcribe Radiology Orders 11/10/2019 Travel Hayley Gomez MD Trappey, Dominique Anne, MD 11/01/2019 Anesthesia General Surgery Event Chidi Ying MD LAPAROSCOPIC GASTROSTOMY TUBE PLACEMENT 11/01/2019 Surgery General Surgery Elfego Oswald MD Crawley, Teri, [employer] 10/13/2019 Anesthesia Plastic Surgery Event Bri Corral MD BEDSIDE TRACHEOSTOMY 10/13/2019 Surgery Plastic Surgery Gilles Nazario MD Lahvic, Nicholas K, MD 10/08/2019 Anesthesia Cardiothoracic Surg [facility] Luke Sparks MD FLEXIBLE BRONCHOSCOPY, LEFT RE-DO THORAC OTOMY, TOTAL LUNG DECORDICATION, LEFT CHEST WOUND DEBRIDEMENT, COMPLEX WOUND CLOSURE 10/08/2019 Surgery Cardiothoracic Surg Stefani Gómez MD Follansbee, Aaron T, MD 10/05/2019 Anesthesia Cardiothoracic Surg [facility] Luke Sparks MD ROBOTIC RIGHT THORACOSCOPIC EXPLORATION, DRAINAGE OF RIGHT SIDED PLEURAL EFFUSION, AND LEFT ARM AXILLARY THROMBECTOMY 10/05/2019 Surgery Cardiothoracic Surg Anil Franco MD Higley, Binh, MD 09/20/2019 Anesthesia Cardiothoracic Surg [facility] Luke Sparks MD Flex Bronch, EGD 09/20/2019 Surgery Cardiothoracic Surg Luke Perry MD Empyema (HCC) (Primary Dx); Septic shock (HCC); Esophageal and gastrojejunostomhy perforation; Esophageal perforation; Pleural effusion, left; S/P L thoracotomy; Severe sepsis (HCC); Respiratory failure requiring intubation (HCC) 09/13/2019 [facility] Cardiac Intensive C are - Encounter 11/05/2019 Robyn Bland MD 09/13/2019 Anesthesia Cardiothoracic Surg [facility] Luke Castro MD LEFT THORACOTOMY, RESECTION OF PROXIMAL STOMACH AND DISTAL ESOPHAGUS EN BLOC, HIATAL HERNIA REPAIR, RESECTION OF JEJUNUM, LEFT TOTAL LUNG DECORTICATION, CRYO-ABLATION OF LEFT INTERCOSTAL NERVES, HARVEST OF INTERCOSTAL MUSCLE FLAP 09/13/2019 Surgery Cardiothoracic Surg mj - 09/14/2019 Booker, MiguelMD Ruben Haq Arusha Amod, MD Safiyeh, Majed Fathi, MD Septic shock (HCC) (Primary Dx); Acute blood loss anemia; Acute renal failure, unspecified acute renal failure type (HCC); Atrial fibrillation with rapid ventricular response (HCC); Hypothermia, initial encounter; Hemopneumothorax on left 09/13/2019 Emergency Emergency Medicine Halima Kern MD Itchy scalp (Primary Dx); Urinary tract infection without hematuria, site unspecified 08/26/2019 Telemedicine Internal Medicine Halima Kern MD Chronic low back pain, unspecified back pain laterality, unspecified whether sciatica present (Primary Dx) 08/23/2019 Orders Only Internal Medicine Halima Kern MD 08/20/2019 Refill Family Medicine Chicho Bess MD Fall, initial encounter (Primary Dx); Abrasion; Hematoma of scalp, initial encounter 08/06/2019 Emergency Emergency Medicine - 08/07/2019 08/06/2019 Travel Chidi Ying MD Marginal ulcer (Primary Dx) 07/20/2019 Telemedicine General Surgery Shiloh Gutiérrez MA S/P bariatric surgery (Primary Dx); PUD (peptic ulcer disease); Chronic marginal ulcer with perforation (HCC); Intestinal malabsorption, unspecified type; Weight loss; Vitamin deficiency; BMI 20.0-20.9, adult; Gastroesophageal reflux disease, esophagitis presence not specified; Other hyperlipidemia; Hx of essential hypertension 07/20/2019 Orders Only General Surgery 07/14/2019 Ilene Hernandez MD 07/12/2019 Orders Only Family Medicine 06/17/2019 Travel Halima Kern MD Nausea 06/02/2019 Orders Only Internal Medicine Halima Kern MD Chronic left shoulder pain 05/23/2019 Refill Family Medicine Geo Walton MD coordination of care 05/18/2019 Documentation General Surgery Clarisa Workman MA 05/17/2019 Telephone General Surgery Chidi iYng MD Marginal ulcer (Primary Dx) 05/12/2019 Office Visit General Surgery Geo Walton MD Chronic marginal ulcer with perforation (HCC) (Primary Dx); Gastrostomy present (HCC) 04/26/2019 Office Visit General Surgery Geo Walton MD S/P gastrostomy tube (G tube) placement, follow-up exam (Primary Dx); Chronic marginal ulcer with perforation (HCC) 04/14/2019 Office Visit General Surgery Hiro Cruz MD Rotator cuff tendonitis, left (Primary D x); Chronic left shoulder pain 04/14/2019 Office Visit Orthopedic Surgery Herbie Lopez MD 03/15/2019 Anesthesia General Surgery Event Geo Walton MD LAPAROSCOPY, DIAGNOSTIC, WIDE DRAINAGE O F PERFORATED ULCER 03/15/2019 Surgery General Surgery Miguel Celeste MD Bavare, Arusha Amod, MD Abouelseoud, Tanseem Hamad Mohamed A, MD Joglekar, Swati, MD Chronic marginal ulcer with perforation (HCC) (Primary Dx); Perforated abdominal viscus; Hx of gastric bypass 03/15/2019 [facility] General Surgery - Encounter 03/29/2019 Stephanie Jon MA 03/15/2019 Telephone Family Medicine Stephanie Jon MA 03/11/2019 Telephone Family Medicine Beatriz Puente MD Asymptomatic menopausal state (Primary D x) 02/01/2019 Transcribe Access Orders Chidi Ying MD 01/19/2019 Refill General Surgery Halima Kern MD Nausea 01/19/2019 Refill Internal Medicine Chidi Ying MD 01/12/2019 Refill General Surgery Halima Kern MD 01/12/2019 Orders Only Internal Medicine Stephanie Jon MA Urinary tract infection without hematuri a, site unspecified (Primary Dx) 01/06/2019 Orders Only Family Medicine after 01/04/2019 Immunizations Name Administration Dates Next Due FLUCELVAX QUAD PF 01/10/2018 FLUZONE HIGH-DOSE PF 12/31/2018 Tdap 08/06/2019 Surgical History Surgery Date Site/Laterality Comments LJ-EN-Y PROCEDURE 07/06/2015 HYSTERECTOMY 03/24/2003 - 03/23/2004 HERNIA REPAIR 07/06/2015 COLONOSCOPY 03/24/2006 - colonoscopy, record s not available, pt said she 03/23/2007 had 17 polyps COLONOSCOPY 09/21/2013 - Colon:Diverticulosi s in sigmoid and descending 10/21/2013 colon. Internal hemorrhoids , multiple scars in the rectum, No specimens. ESOPHAGOGASTRODUODENOSCOP 02/17/2017 N/A Proc edure: ESOPHAGOGASTRODUODENOSCOPY (EGD) with Y (EGD) Bx ; Surgeon: Spencer Romero MD; Location: [facility]; Service: Gastroenterol ogy; Laterality: N/A; Anastimosis ulcer, ga stritis UPPER GASTROINTESTINAL 09/21/2013 - EGD Bx: Z-line irregular, LA Grade B ENDOSCOPY 10/21/2013 esophagitis,HH, gas tritis bx:reactive chemical gastropathy, HP Neg, Duodenum bx: chron ic duodenitis, mld and non-specific, Esoph alfred bx:Reflux esophagitis. UPPER GASTROINTESTINAL 06/27/2015 Dr Ortega:EGD Bx: Normal esophagus, HH 5cm, ENDOSCOPY Gastritis bx: chronic inact jaime gastritis, mild. HP Neg. UPPER GASTROINTESTINAL 02/17/2017 Gastric bypass, Gastrojejunal anastmosis ENDOSCOPY characterized by ulceration . BX .mild chronic inflammation, no HP, some intestinal me taplasia GASTRIC BYPASS 06/23/2015 - 07/22/2015 ESOPHAGOGASTRODUODENOSCOP 12/10/2017 N/A Proc edure: ESOPHAGOGASTRODUODENOSCOPY (EGD); Y (EGD) Surgeon: Spencer Romero MD; Location: [facility]; Service: Gastroenterology; Laterality: N/A; erosive esophagitis,p ost gastric surgery, anastomotic ulcer, esophagitis , REFRACTIVE SURGERY GASTROJEJUNOSTOMY 01/09/2018 Abdomen/N/A Procedure: R EVISION OF GASTROJEJUNAL ANASTOMOSIS; Surgeon: Chidi Ying MD; Location: [facility]; Service: General; Laterality: N/A ; REPAIR, HIATAL HERNIA, 01/09/2018 Abdomen/N/A Procedu re: LAPAROSCOPIC HIATAL HERNIA REPAIR; LAPAROSCOPIC Surgeon: Chidi Ying MD; Location: [facility] OR; Service: General; Laterality: N/A ; EGD, INTRAOPERATIVE 01/09/2018 N/A Procedure: INTRAOPERATIVE EN DOSCOPY; Surgeon: Chidi Ynig MD; Location: [facility]; Service: General; Laterality: N/A; ANKLE FRACTURE SURGERY ESOPHAGOGASTRODUODENOSCOP 09/02/2018 Left Proc edure: ESOPHAGOGASTRODUODENOSCOPY (EGD) with Y (EGD) staple removal; Surgeon: Rossy Alvarez MD; Location: [facility] ENDOSCOPY; Service: Gastroenterology; Laterality: Left; LAPAROSCOPY, DIAGNOSTIC 03/15/2019 Abdomen/N/A Proced ure: LAPAROSCOPY, DIAGNOSTIC, WIDE DRAINAGE OF PERFORATED ULCER; Surgeon: Geo Walton MD; Location: [facility] OR; Service: General; Laterality: N/A; INSERTION, GASTROSTOMY 03/15/2019 Abdomen/N/A Procedu re: INSERTION, GASTROSTOMY TUBE, TUBE, LAPAROSCOPIC LAPAROSCOPIC; Surgeon: Geo De Guzman MD; Location: [facility] OR; Service: General; Laterality: N/A; THORACOTOMY 09/13/2019 Chest/Left Procedure: LEFT THORACOTOMY, RESECTION OF PROXIMAL - STOMACH AND DISTAL ESOPHAGU S EN BLOC, HIATAL 09/14/2019 HERNIA REPAIR, RESECTION OF JEJUNUM, LEFT TOTAL LUNG DECORTICATION, CRYO-ABLATION OF LE FT INTERCOSTAL NERVES, HARVEST OF INTERCOS JAYDEN MUSCLE FLAP; Surgeon: Luke Sparks MD; Loca tion: [facility] OR; Service: Thoracic; Lateral ity: Left; Medical devices from this surgery are i n the Implants section. EGD, INTRAOPERATIVE 09/13/2019 N/A Procedure: EGD, FLEXIBLE BRONCHOSCOPY; Surgeon: Luke Leger MD; Location : [facility] OR; 09/14/2019 Service: Thoracic; Lateral ity: N/A; Medical devices from this surgery are i n the Implants section. THORACOSCOPY, 09/20/2019 Chest/N/A Procedure: Flex Bronch, EGD; Surgeon: [place] ROBOT-ISIS Butler MD; Location: [facility] OR; Service: Thoracic; Laterality: N/A; BRONCHOSCOPY 09/23/2019 FRACTURE SURGERY ankle LAPAROSCOPIC ROBOTIC 10/05/2019 Chest/N/A Procedure : ROBOTIC RIGHT THORACOSCOPIC ESOPHAGECTOMY W/ RT VATS, EXPLORATION, DRAINAGE OF RIGHT SIDED PLEURAL LAP J-TUBE AND E EFFUSION, AND LEFT ARM AXIL KARI THROMBECTOMY; Surgeon: Luke Sparks MD; [facility]; Service: Thoracic; Laterality: N/ A; BRONCHOSCOPY 10/05/2019 N/A Procedure: FLEX IBLE BRONCHOSCOPY; Surgeon: Luke Sparks MD; Location: [facility] OR; Service: Thoracic; Laterality: N/A; EMBOLECTOMY, ARTERY, 10/05/2019 Groin/Left Procedure : LEFT ARM BRACHIAL EMBOLECTOMY AND LEFT FEMORAL UPPER EXTREMITY ARTERIOGRAM ; Surgeon: Moses Miranda MD; Location: [facility]; Service: Vascular; Laterality: Left; LOBECTOMY, LUNG, 10/08/2019 Chest/Left Procedure: FL EXIBLE BRONCHOSCOPY, LEFT RE-DO ROBOT-ASSISTED, THORACOTOMY, TOTAL LUNG DEC ORDICATION, LEFT CHEST THORACOSCOPIC WOUND DEBRIDEMENT, COMPLEX WOUND CLOSURE; Surgeon: Luke Sparks MD; Location: [facility] OR; Service: Thoracic; Laterality: Le ft; TRACHEOSTOMY 10/13/2019 Neck/N/A Procedure: BEDS EUGENIA TRACHEOSTOMY; Surgeon: Bri Corral MD; Location: [facility]PC 18 OR; Ser vice: ENT; Laterality: N/A; INSERTION, GASTROSTOMY 11/01/2019 Abdomen/N/A Procedu re: LAPAROSCOPIC GASTROSTOMY TUBE TUBE, LAPAROSCOPIC PLACEMENT; Surgeon: Chidi Ramon MD; Location: [facility]; Service: Genera l; Laterality: N/A; BIOPSY, LUNG, 2019 Chest/Right Procedure: RIGH T ROBOT-ASSISTED THORACOSCOPIC THORACOSCOPIC, MOBILIZATION OF ESOPHAGUS, Partial Decortication ROBOT-ASSISTED of Right Chest; Surgeon: Luke Kang MD; Location: [facility]; Service: Thor acic; Laterality: Right; ESOPHAGECTOMY, PARTIAL 2019 Neck/Left Procedu re: ESOPHAGOSTOMY, Esophageal Resection, LEFT NECK DISSECTION; Surgeon: Luke Sparks MD; Location: [facility]; Service: Thor acic; Laterality: Left; BRONCHOSCOPY 2019 N/A Procedure: FLEX IBLE BRONCHOSCOPY; Surgeon: Luke Sparks MD; Location: [facility]; Service: Thoracic; Laterality: N/A; EGD, INTRAOPERATIVE 2019 N/A Procedure: EGD; Surgeon: Luke Sparks MD; Location: [facility]; Service: Thor acic; Laterality: N/A; BRONCHOSCOPY 12/13/2019 Medical History Medical History Date Comments Hypertension Hyperlipidemia GERD (gastroesophageal reflux disease) Anxiety Anesthesia POST OP NAUSEA/VOMITING. NF HAP. DENIES SOB OR CHEST PAIN. Exercises 3 to 4 times per week WALKS FOR 30 MIN. P T STATES WILL GET SOB IF SHE GOES UP TWO FLIGHTS OF STAIRS. Fainting STATES DUE TO LOW BP. STATE S FOLLOWS UP WITH PCP. STATES LAST FAINTING EPISODE WAS THE WEEK OF 11/2017. STATES SHE DID HIT HER HEAD. Dental bridge present UPPER RIGHT AND IMPLANT FRO NT UPPER RA (rheumatoid arthritis) (HCC) Difficulty in swallowing NO SOLIDS. PT STATES ABLE TAKE HER MEDICATIONS. 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 coli, (+)K. PN & (+)K. variicola Enterococcus Gastric ulcer, chronic Family History Medical History Relation Name Comments Lung cancer Mother Lung cancer Sister Lung cancer Sister COPD Son Relation Name Status Comments Father Mother Sister Sister Son Alive Social History Date Tobacco Use Types Packs/Day Years Used Never Smoker Smokeless Tobacco: Never Used Drinks/Week oz/Week Comments Alcohol Use 1 Glasses of wine 1.0 Rarely. 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 Last Filed Vital Signs Reading Time Taken Comments Vital Sign 112/64 12/27/2019 3:50 PM CDT Blood Pressure 86 12/27/2019 5:41 PM CDT Pulse 36.9 C (98.5 F) 12/27/2019 3:50 PM CDT Temperature 18 12/27/2019 5:41 PM CDT Respiratory Rate 97% 12/27/2019 5:30 PM CDT Oxygen Saturation - - Inhaled Oxygen Concentration 77.1 kg (170 lb) 12/27/2019 3:41 AM CDT Weight 167.6 cm (5' 6") 2019 6:21 AM CDT Height 27.44 2019 6:21 AM CDT Body Mass Index Plan of Treatment Care Team Description Date Type Specialty Chidi Ying MD [address] [facility] [address] [place] [id number] [phone] 01/12/2020 Office Visit General Surgery Health Maintenance Due Date Last Done Comments SHINGLES VACCINES (#1) 1998 65+ PNEUMOCOCCAL VACCINE 2013 03/26/2016 (2 of 2 - PPSV23) INFLUENZA VACCINE 10/23/2019 12/31/2018, 01/10/2018, 03/26/2016, Additional history exists BREAST CANCER SCREENING 12/29/2020 12/29/2018, 09/15/2012, 05/21/2011, Additional history exists COLONOSCOPY SCREENING 10/12/2023 10/11/2013 Implants Device Identifier Shelf Expiration Date Model / Serial / L ot Implanted Type Area Manufactur er [id number] / / Clip Ligtng Weck Hemoclip Plus W/ Medical N/A: N/A TELEFLEX Tape Ti Lg - [id number] Clips for MEDICAL Implanted: 09/13/2019 at [facility] (Quantity not on file) Use Procedures Comments Procedure Name Priority Date/Time Associated Diag nosis POC GLUCOSE Routine 12/27/2019 12:04 PM CDT B NATRIURETIC PEPTIDE Routine 12/27/2019 5:00 AM CDT HC COMPLETE BLD COUNT Routine 12/27/2019 W/AUTO DIFF 5:00 AM CDT POC GLUCOSE Routine 12/27/2019 4:52 AM CDT ESTIMATED GFR Routine 12/27/2019 4:00 AM CDT MAGNESIUM LEVEL Routine 12/27/2019 4:00 AM CDT BASIC METABOLIC PANEL Routine 12/27/2019 4:00 AM CDT POC GLUCOSE Routine 12/26/2019 11:54 PM CDT POC GLUCOSE Routine 12/26/2019 5:11 PM CDT POC GLUCOSE Routine 12/26/2019 11:20 AM CDT POC GLUCOSE Routine 12/26/2019 7:42 AM CDT POC GLUCOSE Routine 12/26/2019 5:30 AM CDT B NATRIURETIC PEPTIDE Routine 12/26/2019 5:20 AM CDT HC COMPLETE BLD COUNT Routine 12/26/2019 W/AUTO DIFF 5:20 AM CDT ESTIMATED GFR Routine 12/26/2019 4:00 AM CDT MAGNESIUM LEVEL Routine 12/26/2019 4:00 AM CDT BASIC METABOLIC PANEL Routine 12/26/2019 4:00 AM CDT POC GLUCOSE Routine 12/25/2019 8:50 PM CDT POC GLUCOSE Routine 12/25/2019 5:14 PM CDT POC GLUCOSE Routine 12/25/2019 11:41 AM CDT ECG 12-LEAD Routine 12/25/2019 10:16 AM CDT POC GLUCOSE Routine 12/25/2019 7:15 AM CDT B NATRIURETIC PEPTIDE Routine 12/25/2019 5:00 AM CDT HC COMPLETE BLD COUNT Routine 12/25/2019 W/AUTO DIFF 5:00 AM CDT POC GLUCOSE Routine 12/25/2019 4:11 AM CDT ESTIMATED GFR Routine 12/25/2019 4:00 AM CDT MAGNESIUM LEVEL Routine 12/25/2019 4:00 AM CDT BASIC METABOLIC PANEL Routine 12/25/2019 4:00 AM CDT POC GLUCOSE Routine 12/24/2019 9:03 PM CDT POC GLUCOSE Routine 12/24/2019 5:31 PM CDT POC GLUCOSE Routine 12/24/2019 12:51 PM CDT ECG 12-LEAD Routine 12/24/2019 9:23 AM CDT POC GLUCOSE Routine 12/24/2019 9:10 AM CDT XR CHEST 1 VW PORTABLE STAT 12/24/2019 8:45 AM CDT ESTIMATED GFR Routine 12/24/2019 5:12 AM CDT B NATRIURETIC PEPTIDE Routine 12/24/2019 5:12 AM CDT MAGNESIUM LEVEL Routine 12/24/2019 5:12 AM CDT BASIC METABOLIC PANEL Routine 12/24/2019 5:12 AM CDT HC COMPLETE BLD COUNT Routine 12/24/2019 W/AUTO DIFF 5:12 AM CDT POC GLUCOSE Routine 12/24/2019 12:27 AM CDT POC GLUCOSE Routine 12/23/2019 8:42 PM CDT POC GLUCOSE Routine 12/23/2019 5:30 PM CDT POC GLUCOSE Routine 12/23/2019 12:03 PM CDT POC GLUCOSE Routine 12/23/2019 9:00 AM CDT POC GLUCOSE Routine 12/23/2019 5:20 AM CDT ESTIMATED GFR Routine 12/23/2019 4:15 AM CDT B NATRIURETIC PEPTIDE Routine 12/23/2019 4:15 AM CDT MAGNESIUM LEVEL Routine 12/23/2019 4:15 AM CDT BASIC METABOLIC PANEL Routine 12/23/2019 4:15 AM CDT HC COMPLETE BLD COUNT Routine 12/23/2019 W/AUTO DIFF 4:15 AM CDT POC GLUCOSE Routine 12/22/2019 8:56 PM CDT POC GLUCOSE Routine 12/22/2019 4:58 PM CDT POC GLUCOSE Routine 12/22/2019 11:44 AM CDT FL MODIFIED BARIUM Routine 12/22/2019 SWALLOW 10:31 AM CDT POC GLUCOSE Routine 12/22/2019 7:28 AM CDT ESTIMATED GFR Routine 12/22/2019 3:55 AM CDT B NATRIURETIC PEPTIDE Routine 12/22/2019 3:55 AM CDT MAGNESIUM LEVEL Routine 12/22/2019 3:55 AM CDT BASIC METABOLIC PANEL Routine 12/22/2019 3:55 AM CDT HC COMPLETE BLD COUNT Routine 12/22/2019 W/AUTO DIFF 3:55 AM CDT POC GLUCOSE Routine 12/21/2019 9:07 PM CDT POC GLUCOSE Routine 12/21/2019 5:39 PM CDT POC GLUCOSE Routine 12/21/2019 11:29 AM CDT PROTEIN, TOTAL Routine 12/21/2019 8:05 AM CDT POC GLUCOSE Routine 12/21/2019 7:26 AM CDT POC GLUCOSE Routine 12/21/2019 3:56 AM CDT POC GLUCOSE Routine 12/20/2019 9:12 PM CDT POC GLUCOSE Routine 12/20/2019 6:59 PM CDT POC GLUCOSE Routine 12/20/2019 12:28 PM CDT POC GLUCOSE Routine 12/20/2019 7:20 AM CDT ESTIMATED GFR Routine 12/20/2019 5:25 AM CDT PHOSPHORUS LEVEL Routine 12/20/2019 5:25 AM CDT MAGNESIUM LEVEL Routine 12/20/2019 5:25 AM CDT HC COMPLETE BLD COUNT Routine 12/20/2019 W/AUTO DIFF 5:25 AM CDT BASIC METABOLIC PANEL Routine 12/20/2019 5:25 AM CDT POC GLUCOSE Routine 12/19/2019 8:54 PM CDT POC GLUCOSE Routine 12/19/2019 5:14 PM CDT PROTHROMBIN TIME WITH INR Routine 12/19/2019 4:00 PM CDT XR CHEST 1 VW STAT 12/19/2019 11:56 AM CDT US THORACENTESIS WITH Routine 12/19/2019 IMAGING 11:45 AM CDT CELL COUNT AND Routine 12/19/2019 DIFFERENTIAL, BODY FLUID 11:18 AM CDT PROTEIN, MISC FLUID Routine 12/19/2019 11:18 AM CDT GLUCOSE LEVEL, MISC FLUID Routine 12/19/2019 11:18 AM CDT GRAM STAIN Routine 12/19/2019 11:18 AM CDT ANAEROBIC CULTURE Routine 12/19/2019 11:18 AM CDT AEROBIC CULTURE Routine 12/19/2019 11:18 AM CDT POC GLUCOSE Routine 12/19/2019 7:53 AM CDT XR CHEST 1 VW PORTABLE STAT 12/19/2019 7:13 AM CDT ESTIMATED GFR Routine 12/19/2019 3:55 AM CDT TOTAL IRON BINDING Routine 12/19/2019 CAPACITY 3:55 AM CDT PHOSPHORUS LEVEL Routine 12/19/2019 3:55 AM CDT MAGNESIUM LEVEL Routine 12/19/2019 3:55 AM CDT HC COMPLETE BLD COUNT Routine 12/19/2019 W/AUTO DIFF 3:55 AM CDT BASIC METABOLIC PANEL Routine 12/19/2019 3:55 AM CDT POC GLUCOSE Routine 12/18/2019 10:14 PM CDT TRANSFUSE RED BLOOD CELLS Routine 12/18/2019 8:56 PM CDT POC GLUCOSE Routine 12/18/2019 6:01 PM CDT TRANSFUSE RED BLOOD CELLS Routine 12/18/2019 4:38 PM CDT US CHEST Routine 12/18/2019 2:47 PM CDT POC GLUCOSE Routine 12/18/2019 11:17 AM CDT ECG 12-LEAD Routine 12/18/2019 9:03 AM CDT POC GLUCOSE Routine 12/18/2019 7:40 AM CDT XR CHEST 1 VW PORTABLE STAT 12/18/2019 6:38 AM CDT PREPARE RBC Routine 12/18/2019 6:00 AM CDT PREPARE RBC Routine 12/18/2019 6:00 AM CDT TYPE AND SCREEN Routine 12/18/2019 6:00 AM CDT SMEAR REVIEW Routine 12/18/2019 4:00 AM CDT ESTIMATED GFR Routine 12/18/2019 4:00 AM CDT PHOSPHORUS LEVEL Routine 12/18/2019 4:00 AM CDT MAGNESIUM LEVEL Routine 12/18/2019 4:00 AM CDT HC COMPLETE BLD COUNT Routine 12/18/2019 W/AUTO DIFF 4:00 AM CDT BASIC METABOLIC PANEL Routine 12/18/2019 4:00 AM CDT POC GLUCOSE Routine 12/17/2019 9:11 PM CDT POC GLUCOSE Routine 12/17/2019 5:22 PM CDT POC GLUCOSE Routine 12/17/2019 12:09 PM CDT ECG 12-LEAD Routine 12/17/2019 10:49 AM CDT ECG 12-LEAD Routine 12/17/2019 10:39 AM CDT POC GLUCOSE Routine 12/17/2019 7:53 AM CDT POC GLUCOSE Routine 12/17/2019 3:44 AM CDT HC COMPLETE BLD COUNT Routine 12/17/2019 W/AUTO DIFF 3:00 AM CDT ESTIMATED GFR Routine 12/17/2019 12:00 AM CDT BASIC METABOLIC PANEL Routine 12/17/2019 12:00 AM CDT PHOSPHORUS LEVEL Routine 12/17/2019 12:00 AM CDT MAGNESIUM LEVEL Routine 12/17/2019 12:00 AM CDT POC GLUCOSE Routine 12/16/2019 11:10 PM CDT POC GLUCOSE Routine 12/16/2019 9:10 PM CDT POC GLUCOSE Routine 12/16/2019 5:11 PM CDT POC GLUCOSE Routine 12/16/2019 12:27 PM CDT ECG 12-LEAD Routine 12/16/2019 10:35 AM CDT POC GLUCOSE Routine 12/16/2019 8:38 AM CDT XR CHEST 1 VW PORTABLE STAT 12/16/2019 6:15 AM CDT POC GLUCOSE Routine 12/16/2019 4:55 AM CDT ESTIMATED GFR Routine 12/16/2019 4:50 AM CDT BASIC METABOLIC PANEL Routine 12/16/2019 4:50 AM CDT HC COMPLETE BLD COUNT Routine 12/16/2019 W/AUTO DIFF 4:50 AM CDT PHOSPHORUS LEVEL Routine 12/16/2019 4:50 AM CDT MAGNESIUM LEVEL Routine 12/16/2019 4:50 AM CDT POC GLUCOSE Routine 12/16/2019 12:31 AM CDT POC GLUCOSE Routine 12/15/2019 8:55 PM CDT POC GLUCOSE Routine 12/15/2019 5:15 PM CDT ECG 12-LEAD Routine 12/15/2019 12:10 PM CDT POC GLUCOSE Routine 12/15/2019 12:07 PM CDT FL MODIFIED BARIUM Routine 12/15/2019 SWALLOW 11:15 AM CDT HEMOGLOBIN & HEMATOCRIT STAT 12/15/2019 8:35 AM CDT POC GLUCOSE Routine 12/15/2019 7:50 AM CDT XR CHEST 1 VW PORTABLE Routine 12/15/2019 5:49 AM CDT POC GLUCOSE Routine 12/15/2019 5:00 AM CDT ESTIMATED GFR Routine 12/15/2019 4:30 AM CDT FOLATE LEVEL Routine 12/15/2019 4:30 AM CDT BASIC METABOLIC PANEL Routine 12/15/2019 4:30 AM CDT HC COMPLETE BLD COUNT Routine 12/15/2019 W/AUTO DIFF 4:30 AM CDT PHOSPHORUS LEVEL Routine 12/15/2019 4:30 AM CDT MAGNESIUM LEVEL Routine 12/15/2019 4:30 AM CDT POC GLUCOSE Routine 12/15/2019 12:10 AM CDT POC GLUCOSE Routine 12/14/2019 8:25 PM CDT POC GLUCOSE Routine 12/14/2019 5:18 PM CDT POC GLUCOSE Routine 12/14/2019 1:23 PM CDT POC GLUCOSE Routine 12/14/2019 9:01 AM CDT XR CHEST 1 VW PORTABLE STAT 12/14/2019 9:00 AM CDT POC GLUCOSE Routine 12/14/2019 4:53 AM CDT ESTIMATED GFR Routine 12/14/2019 4:25 AM CDT COMPREHENSIVE METABOLIC Routine 12/14/2019 PANEL 4:25 AM CDT HC COMPLETE BLD COUNT Routine 12/14/2019 W/AUTO DIFF 4:25 AM CDT POC GLUCOSE Routine 12/14/2019 1:13 AM CDT POC GLUCOSE Routine 12/13/2019 9:15 PM CDT POC GLUCOSE Routine 12/13/2019 5:14 PM CDT XR CHEST 1 VW PORTABLE Routine 12/13/2019 1:59 PM CDT POC GLUCOSE Routine 12/13/2019 11:49 AM CDT FUNGUS SMEAR Routine 12/13/2019 11:21 AM CDT AFB STAIN Routine 12/13/2019 11:21 AM CDT GRAM STAIN Routine 12/13/2019 11:21 AM CDT AFB CULTURE Routine 12/13/2019 11:21 AM CDT FUNGUS CULTURE Routine 12/13/2019 11:21 AM CDT RESPIRATORY CULTURE Routine 12/13/2019 11:21 AM CDT XR CHEST 1 VW PORTABLE STAT 12/13/2019 10:05 AM CDT CONSULT TO OSTOMY CARE Routine 12/13/2019 NURSE 8:52 AM CDT POC GLUCOSE Routine 12/13/2019 8:06 AM CDT POC GLUCOSE Routine 12/13/2019 4:37 AM CDT ESTIMATED GFR Routine 12/13/2019 3:00 AM CDT COMPREHENSIVE METABOLIC Routine 12/13/2019 PANEL 3:00 AM CDT HC COMPLETE BLD COUNT Routine 12/13/2019 W/AUTO DIFF 3:00 AM CDT POC GLUCOSE Routine 12/13/2019 12:33 AM CDT POC GLUCOSE Routine 12/12/2019 8:43 PM CDT POC GLUCOSE Routine 12/12/2019 3:58 PM CDT POC GLUCOSE Routine 12/12/2019 1:04 PM CDT POC GLUCOSE Routine 12/12/2019 9:12 AM CDT POC GLUCOSE Routine 12/12/2019 7:26 AM CDT POC GLUCOSE Routine 12/12/2019 4:57 AM CDT ESTIMATED GFR Routine 12/12/2019 3:07 AM CDT COMPREHENSIVE METABOLIC Routine 12/12/2019 PANEL 3:07 AM CDT HC COMPLETE BLD COUNT Routine 12/12/2019 W/AUTO DIFF 2:20 AM CDT POC GLUCOSE Routine 12/12/2019 12:37 AM CDT POC GLUCOSE Routine 12/11/2019 8:40 PM CDT POC GLUCOSE Routine 12/11/2019 4:52 PM CDT POC GLUCOSE Routine 12/11/2019 12:31 PM CDT POC GLUCOSE Routine 12/11/2019 8:47 AM CDT ARTERIAL BLOOD GAS Routine 12/11/2019 6:30 AM CDT POC GLUCOSE Routine 12/11/2019 4:46 AM CDT ESTIMATED GFR Routine 12/11/2019 3:00 AM CDT PARTIAL THROMBOPLASTIN Routine 12/11/2019 TIME (PTT) 3:00 AM CDT PROTHROMBIN TIME WITH INR Routine 12/11/2019 3:00 AM CDT PREALBUMIN LEVEL Routine 12/11/2019 3:00 AM CDT COMPREHENSIVE METABOLIC Routine 12/11/2019 PANEL 3:00 AM CDT HC COMPLETE BLD COUNT Routine 12/11/2019 W/AUTO DIFF 3:00 AM CDT POC GLUCOSE Routine 12/11/2019 12:59 AM CDT POC GLUCOSE Routine 12/10/2019 9:04 PM CDT POC GLUCOSE Routine 12/10/2019 4:59 PM CDT XR CHEST 1 VW PORTABLE Routine 12/10/2019 1:15 PM CDT POC GLUCOSE Routine 12/10/2019 11:40 AM CDT POC GLUCOSE Routine 12/10/2019 7:53 AM CDT POC GLUCOSE Routine 12/10/2019 4:43 AM CDT ESTIMATED GFR Routine 12/10/2019 3:30 AM CDT COMPREHENSIVE METABOLIC Routine 12/10/2019 PANEL 3:30 AM CDT HC COMPLETE BLD COUNT Routine 12/10/2019 W/AUTO DIFF 3:00 AM CDT ARTERIAL BLOOD GAS Routine 12/10/2019 3:00 AM CDT PARTIAL THROMBOPLASTIN Routine 12/10/2019 TIME (PTT) 3:00 AM CDT PROTHROMBIN TIME WITH INR Routine 12/10/2019 3:00 AM CDT POC GLUCOSE Routine 12/10/2019 12:39 AM CDT POC GLUCOSE Routine 12/09/2019 9:16 PM CDT POC GLUCOSE Routine 12/09/2019 4:33 PM CDT HC COMPLETE BLD COUNT Routine 12/09/2019 W/AUTO DIFF 4:24 PM CDT POC GLUCOSE Routine 12/09/2019 1:[address] CHEST WO CONTRAST STAT 12/09/2019 10:[address] SOFT TISSUE NECK WO STAT 12/09/2019 CONTRAST 10:54 AM CDT POC GLUCOSE Routine 12/09/2019 8:34 AM CDT POC GLUCOSE Routine 12/09/2019 4:57 AM CDT ARTERIAL BLOOD GAS Routine 12/09/2019 3:55 AM CDT ESTIMATED GFR Routine 12/09/2019 3:55 AM CDT PROTHROMBIN TIME WITH INR STAT 12/09/2019 3:55 AM CDT PARTIAL THROMBOPLASTIN STAT 12/09/2019 TIME (PTT) 3:55 AM CDT PHOSPHORUS LEVEL Routine 12/09/2019 3:55 AM CDT MAGNESIUM LEVEL Routine 12/09/2019 3:55 AM CDT HC COMPLETE BLD COUNT Routine 12/09/2019 W/AUTO DIFF 3:55 AM CDT BASIC METABOLIC PANEL Routine 12/09/2019 3:55 AM CDT POC GLUCOSE Routine 12/09/2019 1:20 AM CDT ARTERIAL BLOOD GAS STAT 12/08/2019 11:10 PM CDT XR CHEST 1 VW PORTABLE STAT 12/08/2019 9:31 PM CDT POC GLUCOSE Routine 12/08/2019 9:02 PM CDT ARTERIAL BLOOD GAS Routine 12/08/2019 8:15 PM CDT POC GLUCOSE Routine 12/08/2019 4:31 PM CDT US DUPLEX VENOUS LOWER Routine 12/08/2019 EXTREMITY BILATERAL 2:45 PM CDT POC GLUCOSE Routine 12/08/2019 12:38 PM CDT POC GLUCOSE Routine 12/08/2019 8:40 AM CDT XR CHEST 1 VW PORTABLE STAT 12/08/2019 6:04 AM CDT POC GLUCOSE Routine 12/08/2019 4:09 AM CDT COMPREHENSIVE METABOLIC Routine 12/08/2019 PANEL 3:35 AM CDT ESTIMATED GFR Routine 12/08/2019 3:35 AM CDT PHOSPHORUS LEVEL Routine 12/08/2019 3:35 AM CDT MAGNESIUM LEVEL Routine 12/08/2019 3:35 AM CDT HC COMPLETE BLD COUNT Routine 12/08/2019 W/AUTO DIFF 3:35 AM CDT POC GLUCOSE Routine 12/08/2019 12:21 AM CDT URINE CULTURE Routine 12/08/2019 12:03 AM CDT BLOOD CULTURE, AEROBIC & Routine 2019 ANAEROBIC 10:00 PM CDT URINALYSIS SCREEN AND Routine 2019 MICROSCOPY, WITH REFLEX 9:30 PM CDT TO CULTURE BLOOD CULTURE, AEROBIC & Routine 2019 ANAEROBIC 9:30 PM CDT XR CHEST 1 VW PORTABLE STAT 2019 9:25 PM CDT POC GLUCOSE Routine 2019 9:20 PM CDT LACTIC ACID LEVEL STAT 2019 9:20 PM CDT ESTIMATED GFR STAT 2019 9:20 PM CDT IONIZED CALCIUM, ARTERIAL STAT 2019 9:20 PM CDT PROTHROMBIN TIME WITH INR STAT 2019 9:20 PM CDT MAGNESIUM LEVEL STAT 2019 9:20 PM CDT PHOSPHORUS LEVEL STAT 2019 9:20 PM CDT HC COMPLETE BLD COUNT STAT 2019 W/AUTO DIFF 9:20 PM CDT BASIC METABOLIC PANEL STAT 2019 9:20 PM CDT ARTERIAL BLOOD GAS STAT 2019 9:20 PM CDT ECG 12-LEAD STAT 2019 8:54 PM CDT FIBRINOGEN STAT 2019 7:39 PM CDT PLATELET COUNT STAT 2019 7:39 PM CDT PROTHROMBIN TIME WITH INR STAT 2019 7:39 PM CDT LACTIC ACID, SYRINGE STAT 2019 7:39 PM CDT HEMATOCRIT STAT 2019 7:39 PM CDT IONIZED CALCIUM, ARTERIAL STAT 2019 7:39 PM CDT GLUCOSE LEVEL, SYRINGE STAT 2019 7:39 PM CDT POTASSIUM, SYRINGE STAT 2019 7:39 PM CDT HEMOGLOBIN, SYRINGE STAT 2019 7:39 PM CDT ARTERIAL BLOOD GAS, STAT 2019 CORRECTED 7:39 PM CDT SODIUM LEVEL, SYRINGE STAT 2019 7:39 PM CDT GLUCOSE LEVEL, SYRINGE Routine 2019 6:16 PM CDT IONIZED CALCIUM, ARTERIAL Routine 2019 6:16 PM CDT SODIUM LEVEL, SYRINGE Routine 2019 6:16 PM CDT POTASSIUM, SYRINGE Routine 2019 6:16 PM CDT HEMOGLOBIN, SYRINGE Routine 2019 6:16 PM CDT ARTERIAL BLOOD GAS, Routine 2019 CORRECTED 6:16 PM CDT MO AN ELECTIVE Routine [address] 5:55 PM CDT ARTERIAL LINE Routine 2019 5:52 PM CDT GLUCOSE LEVEL, SYRINGE STAT 2019 4:13 PM CDT HEMOGLOBIN, SYRINGE STAT 2019 4:13 PM CDT IONIZED CALCIUM, ARTERIAL STAT 2019 4:13 PM CDT POTASSIUM, SYRINGE STAT 2019 4:13 PM CDT SODIUM LEVEL, SYRINGE STAT 2019 4:13 PM CDT ARTERIAL BLOOD GAS, STAT 2019 CORRECTED 4:13 PM CDT HEMOGLOBIN & HEMATOCRIT STAT 2019 1:56 PM CDT PROTHROMBIN TIME WITH INR STAT 2019 1:56 PM CDT PLATELET COUNT STAT 2019 1:56 PM CDT FIBRINOGEN STAT 2019 1:56 PM CDT IONIZED CALCIUM, ARTERIAL STAT 2019 1:01 PM CDT GLUCOSE LEVEL, SYRINGE STAT 2019 1:01 PM CDT HEMOGLOBIN, SYRINGE STAT 2019 1:01 PM CDT POTASSIUM, SYRINGE STAT 2019 1:01 PM CDT SODIUM LEVEL, SYRINGE STAT 2019 1:01 PM CDT ARTERIAL BLOOD GAS, STAT 2019 CORRECTED 1:01 PM CDT TRANSFUSE RED BLOOD CELLS Routine 2019 11:48 AM CDT ARTERIAL BLOOD GAS, STAT 2019 CORRECTED 11:30 AM CDT SODIUM LEVEL, SYRINGE STAT 2019 11:30 AM CDT POTASSIUM, SYRINGE STAT 2019 11:30 AM CDT HEMOGLOBIN, SYRINGE STAT 2019 11:30 AM CDT IONIZED CALCIUM, ARTERIAL STAT 2019 11:30 AM CDT GLUCOSE LEVEL, SYRINGE STAT 2019 11:30 AM CDT TRANSFUSE RED BLOOD CELLS Routine 2019 10:25 AM CDT GLUCOSE LEVEL, SYRINGE STAT 2019 10:03 AM CDT IONIZED CALCIUM, ARTERIAL STAT 2019 10:03 AM CDT HEMOGLOBIN, SYRINGE STAT 2019 10:03 AM CDT POTASSIUM, SYRINGE STAT 2019 10:03 AM CDT SODIUM LEVEL, SYRINGE STAT 2019 10:03 AM CDT ARTERIAL BLOOD GAS, STAT 2019 CORRECTED 10:03 AM CDT CYTOLOGY Routine 2019 (NON-GYNECOLOGICAL) 9:11 AM CDT REQUEST FUNGUS SMEAR Routine 2019 9:11 AM CDT AFB STAIN Routine 2019 9:11 AM CDT GRAM STAIN Routine 2019 9:11 AM CDT FUNGUS CULTURE Routine 2019 9:11 AM CDT AFB CULTURE Routine 2019 9:11 AM CDT AEROBIC CULTURE Routine 2019 9:11 AM CDT ANAEROBIC CULTURE Routine 2019 9:11 AM CDT SURGICAL PATHOLOGY Routine 2019 REQUEST 9:00 AM CDT ARTERIAL LINE Routine 2019 8:36 AM CDT MO AN ELECTIVE Routine [address] 8:35 AM CDT PREPARE FRESH FROZEN Routine 2019 PLASMA 2:30 AM CDT PREPARE RBC Routine 2019 2:30 AM CDT SMEAR REVIEW Routine 2019 2:30 AM CDT ESTIMATED GFR Routine 2019 2:30 AM CDT PHOSPHORUS LEVEL Routine 2019 2:30 AM CDT MAGNESIUM LEVEL Routine 2019 2:30 AM CDT HC COMPLETE BLD COUNT Routine 2019 W/AUTO DIFF 2:30 AM CDT BASIC METABOLIC PANEL Routine 2019 2:30 AM CDT PARTIAL THROMBOPLASTIN Routine 2019 TIME (PTT) 2:30 AM CDT TYPE AND SCREEN Routine 2019 2:30 AM CDT POC GLUCOSE Routine 12/06/2019 9:12 PM CDT POC GLUCOSE Routine 12/06/2019 5:28 PM CDT SMEAR REVIEW Routine 12/06/2019 3:20 PM CDT HC COMPLETE BLD COUNT Routine 12/06/2019 W/AUTO DIFF 3:20 PM CDT COVID-19 QUALITATIVE PCR STAT 12/06/2019 3:08 PM CDT ESTIMATED GFR Routine 12/06/2019 2:48 PM CDT THYROID STIMULATING Routine 12/06/2019 HORMONE 2:48 PM CDT T4, FREE Routine 12/06/2019 2:48 PM CDT PREALBUMIN LEVEL Routine 12/06/2019 2:48 PM CDT COMPREHENSIVE METABOLIC Routine 12/06/2019 PANEL 2:48 PM CDT PROTHROMBIN TIME WITH INR Routine 12/06/2019 2:20 PM CDT IR GASTROSTOMY CATHETER Routine 11/26/2019 Dyspha zuleyma EVAL/EXCHANGE 2:04 PM CDT POC GLUCOSE Routine 11/05/2019 7:48 PM CDT POC GLUCOSE Routine 11/05/2019 3:27 PM CDT XR PICC CHEST PORTABLE Routine 11/05/2019 Severe sepsis (HCC) 2:11 PM CDT HC CATH DUAL LUMEN PICC # Routine 11/05/2019 [id number] 12:48 PM CDT HC CVL PICC INSERT 5 YRS Routine 11/05/2019 OR > W/RS&I AND IMG GUID 12:48 PM CDT POC GLUCOSE Routine 11/05/2019 11:47 AM CDT POC GLUCOSE Routine 11/05/2019 7:43 AM CDT ALBUMIN LEVEL STAT 11/05/2019 7:19 AM CDT PREALBUMIN LEVEL STAT 11/05/2019 7:19 AM CDT POC GLUCOSE Routine 11/05/2019 3:26 AM CDT XR CHEST 1 VW PORTABLE Routine 11/05/2019 2:43 AM CDT SMEAR REVIEW Routine 11/05/2019 12:30 AM CDT ESTIMATED GFR Routine 11/05/2019 12:30 AM CDT IONIZED CALCIUM Routine 11/05/2019 12:30 AM CDT PHOSPHORUS LEVEL Routine 11/05/2019 12:30 AM CDT MAGNESIUM LEVEL Routine 11/05/2019 12:30 AM CDT BASIC METABOLIC PANEL Routine 11/05/2019 12:30 AM CDT HC COMPLETE BLD COUNT Routine 11/05/2019 W/AUTO DIFF 12:30 AM CDT POC GLUCOSE Routine 11/05/2019 12:14 AM CDT POC GLUCOSE Routine 11/04/2019 8:28 PM CDT POC GLUCOSE Routine 11/04/2019 3:49 PM CDT MIDLINE INSERTION ATTEMPT Routine 11/04/2019 - UNSUCCESSFUL 3:38 PM CDT HC CATH DUAL LUMEN PICC # Routine 11/04/2019 [id number] 3:36 PM CDT HC US GUIDED VASCULAR Routine 11/04/2019 ACCESS 3:36 PM CDT POC GLUCOSE Routine 11/04/2019 12:18 PM CDT POC GLUCOSE Routine 11/04/2019 7:41 AM CDT XR CHEST 1 VW PORTABLE Routine 11/04/2019 6:31 AM CDT POC GLUCOSE Routine 11/04/2019 3:48 AM CDT HEPATIC FUNCTION PANEL Routine 11/04/2019 12:41 AM CDT SMEAR REVIEW Routine 11/04/2019 12:41 AM CDT ESTIMATED GFR Routine 11/04/2019 12:41 AM CDT TYPE AND SCREEN Routine 11/04/2019 12:41 AM CDT IONIZED CALCIUM Routine 11/04/2019 12:41 AM CDT PHOSPHORUS LEVEL Routine 11/04/2019 12:41 AM CDT MAGNESIUM LEVEL Routine 11/04/2019 12:41 AM CDT BASIC METABOLIC PANEL Routine 11/04/2019 12:41 AM CDT HC COMPLETE BLD COUNT Routine 11/04/2019 W/AUTO DIFF 12:41 AM CDT POC GLUCOSE Routine 11/03/2019 11:46 PM CDT POC GLUCOSE Routine 11/03/2019 7:35 PM CDT POC GLUCOSE Routine 11/03/2019 4:01 PM CDT ARTERIAL BLOOD GAS Routine 11/03/2019 1:26 PM CDT POC GLUCOSE Routine 11/03/2019 11:31 AM CDT POC GLUCOSE Routine 11/03/2019 7:30 AM CDT XR CHEST 1 VW PORTABLE Routine 11/03/2019 6:09 AM CDT POC GLUCOSE Routine 11/03/2019 3:24 AM CDT ESTIMATED GFR Routine 11/03/2019 1:08 AM CDT PHOSPHORUS LEVEL Routine 11/03/2019 1:08 AM CDT MAGNESIUM LEVEL Routine 11/03/2019 1:08 AM CDT BASIC METABOLIC PANEL Routine 11/03/2019 1:08 AM CDT T4, FREE Routine 11/03/2019 1:08 AM CDT THYROID STIMULATING Routine 11/03/2019 HORMONE 1:08 AM CDT SMEAR REVIEW Routine 11/03/2019 12:00 AM CDT HC COMPLETE BLD COUNT Routine 11/03/2019 W/AUTO DIFF 12:00 AM CDT POC GLUCOSE Routine 11/02/2019 11:44 PM CDT POC GLUCOSE Routine 11/02/2019 8:31 PM CDT POC GLUCOSE Routine 11/02/2019 3:45 PM CDT POTASSIUM LEVEL Routine 11/02/2019 2:55 PM CDT PHOSPHORUS LEVEL Routine 11/02/2019 2:55 PM CDT MAGNESIUM LEVEL Routine 11/02/2019 2:55 PM CDT POC GLUCOSE Routine 11/02/2019 11:49 AM CDT POC GLUCOSE Routine 11/02/2019 7:45 AM CDT XR CHEST 1 VW PORTABLE Routine 11/02/2019 7:03 AM CDT POC GLUCOSE Routine 11/02/2019 3:43 AM CDT ESTIMATED GFR Routine 11/02/2019 12:30 AM CDT IONIZED CALCIUM Routine 11/02/2019 12:30 AM CDT HC COMPLETE BLD COUNT Routine 11/02/2019 W/AUTO DIFF 12:30 AM CDT PHOSPHORUS LEVEL Routine 11/02/2019 12:30 AM CDT MAGNESIUM LEVEL Routine 11/02/2019 12:30 AM CDT BASIC METABOLIC PANEL Routine 11/02/2019 12:30 AM CDT POC GLUCOSE Routine 11/01/2019 11:45 PM CDT POC GLUCOSE Routine 11/01/2019 8:07 PM CDT POC GLUCOSE Routine 11/01/2019 4:45 PM CDT TRANSFUSE RED BLOOD CELLS Routine 11/01/2019 3:55 PM CDT MO AN ELECTIVE SURGICAL Routine 11/01/2019 AIRWAY 2:55 PM CDT INSERTION, GASTROSTOMY 11/01/2019 ESOPHAGEAL PER FORATION TUBE, LAPAROSCOPIC 2:14 PM CDT Case Notes EST 1HR Special Needs EST 1HR POC GLUCOSE Routine 11/01/2019 11:47 AM CDT POC GLUCOSE Routine 11/01/2019 8:17 AM CDT XR CHEST 1 VW PORTABLE Routine 11/01/2019 5:26 AM CDT POC GLUCOSE Routine 11/01/2019 3:57 AM CDT ESTIMATED GFR Routine 11/01/2019 1:52 AM CDT PHOSPHORUS LEVEL Routine 11/01/2019 1:52 AM CDT MAGNESIUM LEVEL Routine 11/01/2019 1:52 AM CDT BASIC METABOLIC PANEL Routine 11/01/2019 1:52 AM CDT SMEAR REVIEW Routine 11/01/2019 1:30 AM CDT PROTHROMBIN TIME WITH INR Routine 11/01/2019 1:30 AM CDT HC COMPLETE BLD COUNT Routine 11/01/2019 W/AUTO DIFF 1:30 AM CDT PARTIAL THROMBOPLASTIN Routine 11/01/2019 TIME (PTT) 1:30 AM CDT POC GLUCOSE Routine 10/31/2019 11:52 PM CDT POC GLUCOSE Routine 10/31/2019 7:57 PM CDT POC GLUCOSE Routine 10/31/2019 4:16 PM CDT MAGNESIUM LEVEL Routine 10/31/2019 3:55 PM CDT POTASSIUM LEVEL Routine 10/31/2019 3:55 PM CDT POC GLUCOSE Routine 10/31/2019 11:36 AM CDT POC GLUCOSE Routine 10/31/2019 8:19 AM CDT HEMOGLOBIN & HEMATOCRIT Routine 10/31/2019 7:42 AM CDT MAGNESIUM LEVEL Routine 10/31/2019 7:09 AM CDT POTASSIUM LEVEL Routine 10/31/2019 7:09 AM CDT TRANSFUSE RED BLOOD CELLS Routine 10/31/2019 6:59 AM CDT XR CHEST 1 VW PORTABLE Routine 10/31/2019 5:36 AM CDT PREPARE RBC Routine 10/31/2019 4:00 AM CDT PREPARE RBC Routine 10/31/2019 4:00 AM CDT POC GLUCOSE Routine 10/31/2019 4:00 AM CDT TYPE AND SCREEN Routine 10/31/2019 4:00 AM CDT SMEAR REVIEW Routine 10/31/2019 2:10 AM CDT ESTIMATED GFR Routine 10/31/2019 2:10 AM CDT PARTIAL THROMBOPLASTIN STAT 10/31/2019 TIME (PTT) 2:10 AM CDT PHOSPHORUS LEVEL Routine 10/31/2019 2:10 AM CDT MAGNESIUM LEVEL Routine 10/31/2019 2:10 AM CDT BASIC METABOLIC PANEL Routine 10/31/2019 2:10 AM CDT HC COMPLETE BLD COUNT Routine 10/31/2019 W/AUTO DIFF 2:10 AM CDT POC GLUCOSE Routine 10/31/2019 12:47 AM CDT POC GLUCOSE Routine 10/30/2019 11:43 PM CDT POC GLUCOSE Routine 10/30/2019 7:57 PM CDT POC GLUCOSE Routine 10/30/2019 3:45 PM CDT PARTIAL THROMBOPLASTIN Timed 10/30/2019 TIME (PTT) 12:00 PM CDT POC GLUCOSE Routine 10/30/2019 11:36 AM CDT POC GLUCOSE Routine 10/30/2019 7:33 AM CDT COVID-19 QUALITATIVE PCR Routine 10/30/2019 7:12 AM CDT PARTIAL THROMBOPLASTIN Routine 10/30/2019 TIME (PTT) 5:59 AM CDT XR CHEST 1 VW PORTABLE Routine 10/30/2019 4:42 AM CDT POC GLUCOSE Routine 10/30/2019 4:06 AM CDT SMEAR REVIEW Routine 10/30/2019 2:06 AM CDT ESTIMATED GFR Routine 10/30/2019 2:06 AM CDT PHOSPHORUS LEVEL Routine 10/30/2019 2:06 AM CDT MAGNESIUM LEVEL Routine 10/30/2019 2:06 AM CDT BASIC METABOLIC PANEL Routine 10/30/2019 2:06 AM CDT HC COMPLETE BLD COUNT Routine 10/30/2019 W/AUTO DIFF 2:06 AM CDT POC GLUCOSE Routine 10/29/2019 11:35 PM CDT PARTIAL THROMBOPLASTIN Routine 10/29/2019 TIME (PTT) 11:00 PM CDT POC GLUCOSE Routine 10/29/2019 8:18 PM CDT PARTIAL THROMBOPLASTIN Routine 10/29/2019 TIME (PTT) 4:10 PM CDT POTASSIUM LEVEL Routine 10/29/2019 4:00 PM CDT PHOSPHORUS LEVEL Routine 10/29/2019 4:00 PM CDT MAGNESIUM LEVEL Routine 10/29/2019 4:00 PM CDT POC GLUCOSE Routine 10/29/2019 3:52 PM CDT POC GLUCOSE Routine 10/29/2019 11:49 AM CDT PARTIAL THROMBOPLASTIN Routine 10/29/2019 TIME (PTT) 8:40 AM CDT POC GLUCOSE Routine 10/29/2019 7:46 AM CDT POC GLUCOSE Routine 10/29/2019 4:29 AM CDT XR CHEST 1 VW PORTABLE Routine 10/29/2019 4:09 AM CDT ECG 12-LEAD Routine 10/29/2019 3:36 AM CDT SMEAR REVIEW Routine 10/29/2019 1:45 AM CDT ESTIMATED GFR Routine 10/29/2019 1:45 AM CDT IONIZED CALCIUM Routine 10/29/2019 1:45 AM CDT PHOSPHORUS LEVEL Routine 10/29/2019 1:45 AM CDT MAGNESIUM LEVEL Routine 10/29/2019 1:45 AM CDT BASIC METABOLIC PANEL Routine 10/29/2019 1:45 AM CDT HC COMPLETE BLD COUNT Routine 10/29/2019 W/AUTO DIFF 1:45 AM CDT PARTIAL THROMBOPLASTIN Routine 10/29/2019 TIME (PTT) 1:45 AM CDT POC GLUCOSE Routine 10/28/2019 11:33 PM CDT POC GLUCOSE Routine 10/28/2019 8:27 PM CDT POC GLUCOSE Routine 10/28/2019 4:22 PM CDT PHOSPHORUS LEVEL Routine 10/28/2019 2:56 PM CDT MAGNESIUM LEVEL Routine 10/28/2019 2:56 PM CDT POTASSIUM LEVEL Routine 10/28/2019 2:56 PM CDT POC GLUCOSE Routine 10/28/2019 12:09 PM CDT COVID-19 QUALITATIVE PCR Routine 10/28/2019 9:40 AM CDT POC GLUCOSE Routine 10/28/2019 7:37 AM CDT ECG 12-LEAD Routine 10/28/2019 5:21 AM CDT XR CHEST 1 VW PORTABLE Routine 10/28/2019 4:04 AM CDT POC GLUCOSE Routine 10/28/2019 3:48 AM CDT ESTIMATED GFR Routine 10/28/2019 2:23 AM CDT IONIZED CALCIUM Routine 10/28/2019 2:23 AM CDT PHOSPHORUS LEVEL Routine 10/28/2019 2:23 AM CDT MAGNESIUM LEVEL Routine 10/28/2019 2:23 AM CDT BASIC METABOLIC PANEL Routine 10/28/2019 2:23 AM CDT SMEAR REVIEW Routine 10/28/2019 2:05 AM CDT PARTIAL THROMBOPLASTIN Routine 10/28/2019 TIME (PTT) 2:05 AM CDT HC COMPLETE BLD COUNT Routine 10/28/2019 W/AUTO DIFF 2:05 AM CDT POC GLUCOSE Routine 10/27/2019 11:47 PM CDT POC GLUCOSE Routine 10/27/2019 7:49 PM CDT POC GLUCOSE Routine 10/27/2019 3:35 PM CDT POTASSIUM LEVEL Routine 10/27/2019 3:24 PM CDT SODIUM LEVEL Routine 10/27/2019 3:24 PM CDT POC GLUCOSE Routine 10/27/2019 11:32 AM CDT POC GLUCOSE Routine 10/27/2019 7:30 AM CDT XR CHEST 1 VW PORTABLE Routine 10/27/2019 6:50 AM CDT POC GLUCOSE Routine 10/27/2019 4:01 AM CDT SMEAR REVIEW Routine 10/27/2019 2:20 AM CDT ESTIMATED GFR Routine 10/27/2019 2:20 AM CDT PARTIAL THROMBOPLASTIN Routine 10/27/2019 TIME (PTT) 2:20 AM CDT PHOSPHORUS LEVEL Routine 10/27/2019 2:20 AM CDT MAGNESIUM LEVEL Routine 10/27/2019 2:20 AM CDT BASIC METABOLIC PANEL Routine 10/27/2019 2:20 AM CDT HC COMPLETE BLD COUNT Routine 10/27/2019 W/AUTO DIFF 2:20 AM CDT POC GLUCOSE Routine 10/27/2019 12:19 AM CDT POC GLUCOSE Routine 10/26/2019 7:37 PM CDT POC GLUCOSE Routine 10/26/2019 4:09 PM CDT OSMOLALITY, URINE Routine 10/26/2019 3:51 PM CDT POC GLUCOSE Routine 10/26/2019 11:39 AM CDT POC GLUCOSE Routine 10/26/2019 7:45 AM CDT XR CHEST 1 VW PORTABLE Routine 10/26/2019 6:22 AM CDT POC GLUCOSE Routine 10/26/2019 4:53 AM CDT SMEAR REVIEW Routine 10/26/2019 2:00 AM CDT ESTIMATED GFR Routine 10/26/2019 2:00 AM CDT TYPE AND SCREEN Routine 10/26/2019 2:00 AM CDT TOTAL IRON BINDING Routine 10/26/2019 CAPACITY 2:00 AM CDT FERRITIN LEVEL Routine 10/26/2019 2:00 AM CDT ERYTHROPOIETIN Routine 10/26/2019 2:00 AM CDT PHOSPHORUS LEVEL Routine 10/26/2019 2:00 AM CDT MAGNESIUM LEVEL Routine 10/26/2019 2:00 AM CDT BASIC METABOLIC PANEL Routine 10/26/2019 2:00 AM CDT HC COMPLETE BLD COUNT Routine 10/26/2019 W/AUTO DIFF 2:00 AM CDT T4, FREE Routine 10/26/2019 2:00 AM CDT PARTIAL THROMBOPLASTIN Routine 10/26/2019 TIME (PTT) 2:00 AM CDT POC GLUCOSE Routine 10/25/2019 11:31 PM CDT POC GLUCOSE Routine 10/25/2019 8:51 PM CDT US CHEST Routine 10/25/2019 6:00 PM CDT POC GLUCOSE Routine 10/25/2019 3:52 PM CDT POC GLUCOSE Routine 10/25/2019 12:26 PM CDT PREALBUMIN LEVEL Routine 10/25/2019 10:30 AM CDT ALBUMIN LEVEL Routine 10/25/2019 10:30 AM CDT POC GLUCOSE Routine 10/25/2019 7:33 AM CDT XR CHEST 1 VW PORTABLE Routine 10/25/2019 6:36 AM CDT ECG 12-LEAD Routine 10/25/2019 5:29 AM CDT POC GLUCOSE Routine 10/25/2019 4:22 AM CDT IMMUNOGLOBULIN E Routine 10/25/2019 2:12 AM CDT PERIPHERAL SMEAR Routine 10/25/2019 2:00 AM CDT SMEAR REVIEW Routine 10/25/2019 2:00 AM CDT ESTIMATED GFR Routine 10/25/2019 2:00 AM CDT SEDIMENTATION RATE Routine 10/25/2019 2:00 AM CDT PHOSPHORUS LEVEL Routine 10/25/2019 2:00 AM CDT PARTIAL THROMBOPLASTIN Routine 10/25/2019 TIME (PTT) 2:00 AM CDT MAGNESIUM LEVEL Routine 10/25/2019 2:00 AM CDT IONIZED CALCIUM Routine 10/25/2019 2:00 AM CDT HC COMPLETE BLD COUNT Routine 10/25/2019 W/AUTO DIFF 2:00 AM CDT BASIC METABOLIC PANEL Routine 10/25/2019 2:00 AM CDT POC GLUCOSE Routine 10/24/2019 11:52 PM CDT POC GLUCOSE Routine 10/24/2019 7:49 PM CDT CORTISOL, 60 MINUTES Routine 10/24/2019 5:08 PM CDT POC GLUCOSE Routine 10/24/2019 4:03 PM CDT ADRENOCORTICOTROPIC Routine 10/24/2019 HORMONE 1:30 PM CDT CORTISOL LEVEL, RANDOM Routine 10/24/2019 12:03 PM CDT POC GLUCOSE Routine 10/24/2019 11:29 AM CDT POC GLUCOSE Routine 10/24/2019 7:36 AM CDT XR CHEST 1 VW PORTABLE Routine 10/24/2019 6:05 AM CDT POC GLUCOSE Routine 10/24/2019 4:15 AM CDT THYROID PEROXIDASE Routine 10/24/2019 ANTIBODY 4:00 AM CDT SMEAR REVIEW Timed 10/24/2019 4:00 AM CDT ESTIMATED GFR Timed 10/24/2019 4:00 AM CDT PHOSPHORUS LEVEL Timed 10/24/2019 4:00 AM CDT MAGNESIUM LEVEL Timed 10/24/2019 4:00 AM CDT HC COMPLETE BLD COUNT Timed 10/24/2019 W/AUTO DIFF 4:00 AM CDT BASIC METABOLIC PANEL Timed 10/24/2019 4:00 AM CDT ECG 12-LEAD Routine 10/24/2019 3:12 AM CDT POC GLUCOSE Routine 10/24/2019 12:00 AM CDT PARTIAL THROMBOPLASTIN Routine 10/23/2019 TIME (PTT) 10:30 PM CDT POC GLUCOSE Routine 10/23/2019 8:18 PM CDT US DUPLEX VENOUS UPPER Routine 10/23/2019 EXTREMITY RIGHT 4:10 PM CDT POC GLUCOSE Routine 10/23/2019 3:56 PM CDT PARTIAL THROMBOPLASTIN Routine 10/23/2019 TIME (PTT) 3:50 PM CDT POC GLUCOSE Routine 10/23/2019 11:46 AM CDT PARTIAL THROMBOPLASTIN Routine 10/23/2019 TIME (PTT) 7:56 AM CDT POC GLUCOSE Routine 10/23/2019 7:36 AM CDT XR CHEST 1 VW PORTABLE Routine 10/23/2019 6:48 AM CDT ECG 12-LEAD Routine 10/23/2019 4:52 AM CDT POC GLUCOSE Routine 10/23/2019 4:17 AM CDT SMEAR REVIEW Routine 10/23/2019 1:04 AM CDT ESTIMATED GFR Routine 10/23/2019 1:04 AM CDT PHOSPHORUS LEVEL Routine 10/23/2019 1:04 AM CDT PARTIAL THROMBOPLASTIN Routine 10/23/2019 TIME (PTT) 1:04 AM CDT MAGNESIUM LEVEL Routine 10/23/2019 1:04 AM CDT IONIZED CALCIUM Routine 10/23/2019 1:04 AM CDT HC COMPLETE BLD COUNT Routine 10/23/2019 W/AUTO DIFF 1:04 AM CDT BASIC METABOLIC PANEL Routine 10/23/2019 1:04 AM CDT POC GLUCOSE Routine 10/23/2019 12:07 AM CDT POC GLUCOSE Routine 10/22/2019 8:27 PM CDT PERIPHERAL SMEAR Routine 10/22/2019 6:20 PM CDT OVA & PARASITES, DIRECT Routine 10/22/2019 EXAMINATION 6:20 PM CDT OVA & PARASITES, GROSS Routine 10/22/2019 EXAMINATION 6:20 PM CDT OVA & PARASITES, Routine 10/22/2019 TRICHROME STAIN 6:20 PM CDT OVA & PARASITES, Routine 10/22/2019 CONCENTRATED EXAMINATION 6:20 PM CDT T3 STAT 10/22/2019 4:26 PM CDT T4, FREE STAT 10/22/2019 4:26 PM CDT POC GLUCOSE Routine 10/22/2019 3:49 PM CDT POC GLUCOSE Routine 10/22/2019 11:46 AM CDT CORTISOL LEVEL, RANDOM Routine 10/22/2019 9:29 AM CDT THYROID STIMULATING Routine 10/22/2019 HORMONE 9:29 AM CDT PARTIAL THROMBOPLASTIN Routine 10/22/2019 TIME (PTT) 9:29 AM CDT POC GLUCOSE Routine 10/22/2019 7:22 AM CDT XR CHEST 1 VW PORTABLE Routine 10/22/2019 6:34 AM CDT POC GLUCOSE Routine 10/22/2019 4:02 AM CDT SMEAR REVIEW Routine 10/22/2019 12:25 AM CDT IONIZED CALCIUM, ARTERIAL Routine 10/22/2019 12:25 AM CDT ESTIMATED GFR Routine 10/22/2019 12:25 AM CDT TYPE AND SCREEN Routine 10/22/2019 12:25 AM CDT PHOSPHORUS LEVEL Routine 10/22/2019 12:25 AM CDT MAGNESIUM LEVEL Routine 10/22/2019 12:25 AM CDT ARTERIAL BLOOD GAS Routine 10/22/2019 12:25 AM CDT BASIC METABOLIC PANEL Routine 10/22/2019 12:25 AM CDT HC COMPLETE BLD COUNT Routine 10/22/2019 W/AUTO DIFF 12:25 AM CDT PARTIAL THROMBOPLASTIN Routine 10/22/2019 TIME (PTT) 12:25 AM CDT POC GLUCOSE Routine 10/21/2019 11:52 PM CDT POC GLUCOSE Routine 10/21/2019 7:54 PM CDT HEMOGLOBIN & HEMATOCRIT Routine 10/21/2019 7:54 PM CDT CLOSTRIDIUM DIFFICILE Routine 10/21/2019 TOXIN 5:45 PM CDT MAGNESIUM LEVEL Routine 10/21/2019 5:15 PM CDT ESTIMATED GFR Routine 10/21/2019 5:15 PM CDT BASIC METABOLIC PANEL Routine 10/21/2019 5:15 PM CDT IONIZED CALCIUM Routine 10/21/2019 5:15 PM CDT POC GLUCOSE Routine 10/21/2019 4:12 PM CDT MISCELLANEOUS REFERRAL Routine 10/21/2019 TEST 1:24 PM CDT POC GLUCOSE Routine 10/21/2019 12:08 PM CDT POC GLUCOSE Routine 10/21/2019 8:09 AM CDT BETA HYDROXYBUTYRATE Routine 10/21/2019 6:54 AM CDT LACTIC ACID LEVEL Routine 10/21/2019 6:54 AM CDT XR CHEST 1 VW PORTABLE Routine 10/21/2019 6:15 AM CDT TRANSFUSE RED BLOOD CELLS Routine 10/21/2019 5:47 AM CDT POC GLUCOSE Routine 10/21/2019 3:49 AM CDT SMEAR REVIEW Routine 10/21/2019 2:19 AM CDT ESTIMATED GFR Routine 10/21/2019 2:19 AM CDT IONIZED CALCIUM, ARTERIAL Routine 10/21/2019 2:19 AM CDT ARTERIAL BLOOD GAS Routine 10/21/2019 2:19 AM CDT PHOSPHORUS LEVEL Routine 10/21/2019 2:19 AM CDT MAGNESIUM LEVEL Routine 10/21/2019 2:19 AM CDT BASIC METABOLIC PANEL Routine 10/21/2019 2:19 AM CDT HC COMPLETE BLD COUNT Routine 10/21/2019 W/AUTO DIFF 2:19 AM CDT PARTIAL THROMBOPLASTIN Routine 10/21/2019 TIME (PTT) 2:19 AM CDT POC GLUCOSE Routine 10/20/2019 11:55 PM CDT POC GLUCOSE Routine 10/20/2019 7:36 PM CDT POC GLUCOSE Routine 10/20/2019 4:39 PM CDT POC GLUCOSE Routine 10/20/2019 12:05 PM CDT POC GLUCOSE Routine 10/20/2019 7:50 AM CDT ECG 12-LEAD STAT 10/20/2019 7:30 AM CDT XR CHEST 1 VW PORTABLE Routine 10/20/2019 6:25 AM CDT POC GLUCOSE Routine 10/20/2019 4:21 AM CDT SMEAR REVIEW Routine 10/20/2019 12:48 AM CDT IONIZED CALCIUM, ARTERIAL Routine 10/20/2019 12:48 AM CDT ESTIMATED GFR Routine 10/20/2019 12:48 AM CDT PARTIAL THROMBOPLASTIN Routine 10/20/2019 TIME (PTT) 12:48 AM CDT ARTERIAL BLOOD GAS Routine 10/20/2019 12:48 AM CDT HEPATIC FUNCTION PANEL Routine 10/20/2019 12:48 AM CDT PHOSPHORUS LEVEL Routine 10/20/2019 12:48 AM CDT MAGNESIUM LEVEL Routine 10/20/2019 12:48 AM CDT HC COMPLETE BLD COUNT Routine 10/20/2019 W/AUTO DIFF 12:48 AM CDT BASIC METABOLIC PANEL Routine 10/20/2019 12:48 AM CDT POC GLUCOSE Routine 10/20/2019 12:04 AM CDT PARTIAL THROMBOPLASTIN Routine 10/19/2019 TIME (PTT) 10:14 PM CDT POC GLUCOSE Routine 10/19/2019 7:38 PM CDT NM HEPATOBILIARY STAT 10/19/2019 6:02 PM CDT XR CHEST 1 VW PORTABLE STAT 10/19/2019 3:40 PM CDT HC CVL NON-TUNNELED Routine 10/19/2019 Severe sep sis (HCC) INSERT 5YRS OR > 3:28 PM CDT MO INSERT NON-TUNNEL CV Routine 10/19/2019 Severe sepsis (HCC) CATH 3:28 PM CDT POC GLUCOSE Routine 10/19/2019 11:52 AM CDT PARTIAL THROMBOPLASTIN Routine 10/19/2019 TIME (PTT) 11:15 AM CDT POC GLUCOSE Routine 10/19/2019 11:13 AM CDT US HEPATIC STAT 10/19/2019 10:35 AM CDT POC GLUCOSE Routine 10/19/2019 8:31 AM CDT HEPATIC FUNCTION PANEL STAT 10/19/2019 8:12 AM CDT POC GLUCOSE Routine 10/19/2019 4:18 AM CDT SMEAR REVIEW Routine 10/19/2019 4:10 AM CDT ARTERIAL BLOOD GAS Routine 10/19/2019 4:10 AM CDT ESTIMATED GFR Routine 10/19/2019 4:10 AM CDT PARTIAL THROMBOPLASTIN Routine 10/19/2019 TIME (PTT) 4:10 AM CDT PHOSPHORUS LEVEL Routine 10/19/2019 4:10 AM CDT MAGNESIUM LEVEL Routine 10/19/2019 4:10 AM CDT HC COMPLETE BLD COUNT Routine 10/19/2019 W/AUTO DIFF 4:10 AM CDT BASIC METABOLIC PANEL Routine 10/19/2019 4:10 AM CDT XR CHEST 1 VW PORTABLE Routine 10/19/2019 1:41 AM CDT POC GLUCOSE Routine 10/19/2019 12:20 AM CDT POC GLUCOSE Routine 10/18/2019 8:14 PM CDT ARTERIAL BLOOD GAS Routine 10/18/2019 5:56 PM CDT PHOSPHORUS LEVEL Routine 10/18/2019 5:55 PM CDT MAGNESIUM LEVEL Routine 10/18/2019 5:55 PM CDT ESTIMATED GFR Routine 10/18/2019 5:55 PM CDT BASIC METABOLIC PANEL Routine 10/18/2019 5:55 PM CDT POC GLUCOSE Routine 10/18/2019 5:15 PM CDT POC GLUCOSE Routine 10/18/2019 12:22 PM CDT XR CHEST 1 VW PORTABLE STAT 10/18/2019 9:55 AM CDT CONSULT TO OSTOMY CARE Routine 10/18/2019 NURSE 8:14 AM CDT POC GLUCOSE Routine 10/18/2019 8:13 AM CDT XR CHEST 1 VW PORTABLE Routine 10/18/2019 6:25 AM CDT POC GLUCOSE Routine 10/18/2019 3:46 AM CDT PARTIAL THROMBOPLASTIN Timed 10/18/2019 TIME (PTT) 3:00 AM CDT PREPARE RBC Routine 10/18/2019 1:31 AM CDT SMEAR REVIEW Routine 10/18/2019 1:31 AM CDT ESTIMATED GFR Routine 10/18/2019 1:31 AM CDT TYPE AND SCREEN Routine 10/18/2019 1:31 AM CDT ARTERIAL BLOOD GAS Routine 10/18/2019 1:31 AM CDT PHOSPHORUS LEVEL Routine 10/18/2019 1:31 AM CDT MAGNESIUM LEVEL Routine 10/18/2019 1:31 AM CDT HC COMPLETE BLD COUNT Routine 10/18/2019 W/AUTO DIFF 1:31 AM CDT BASIC METABOLIC PANEL Routine 10/18/2019 1:31 AM CDT POC GLUCOSE Routine 10/18/2019 1:10 AM CDT POTASSIUM, SYRINGE Routine 10/17/2019 8:57 PM CDT PARTIAL THROMBOPLASTIN Routine 10/17/2019 TIME (PTT) 8:57 PM CDT POC GLUCOSE Routine 10/17/2019 8:31 PM CDT GRAM STAIN Routine 10/17/2019 8:29 PM CDT SPUTUM CULTURE Routine 10/17/2019 8:29 PM CDT POC GLUCOSE Routine 10/17/2019 3:50 PM CDT MANUAL DIFFERENTIAL Routine 10/17/2019 1:53 PM CDT BLOOD SMEAR CONSULT Routine 10/17/2019 1:53 PM CDT SMEAR REVIEW Routine 10/17/2019 1:53 PM CDT PHOSPHORUS LEVEL Routine 10/17/2019 1:53 PM CDT MAGNESIUM LEVEL Routine 10/17/2019 1:53 PM CDT ESTIMATED GFR Routine 10/17/2019 1:53 PM CDT BASIC METABOLIC PANEL Routine 10/17/2019 1:53 PM CDT HC COMPLETE BLD COUNT Routine 10/17/2019 W/AUTO DIFF 1:53 PM CDT POC GLUCOSE Routine 10/17/2019 11:56 AM CDT WOUND VAC PLACEMENT Routine 10/17/2019 [place] (H CC) 11:44 AM CDT PARTIAL THROMBOPLASTIN Timed 10/17/2019 TIME (PTT) 9:40 AM CDT ANAEROBIC CULTURE Routine 10/17/2019 9:32 AM CDT GRAM STAIN Routine 10/17/2019 9:32 AM CDT AEROBIC CULTURE Routine 10/17/2019 9:32 AM CDT POC GLUCOSE Routine 10/17/2019 7:40 AM CDT TRANSFUSE RED BLOOD CELLS Routine 10/17/2019 6:53 AM CDT XR CHEST 1 VW PORTABLE Routine 10/17/2019 5:17 AM CDT POC GLUCOSE Routine 10/17/2019 4:18 AM CDT BILIRUBIN DIRECT Routine 10/17/2019 3:37 AM CDT ESTIMATED GFR Routine 10/17/2019 3:37 AM CDT CREATINE KINASE, TOTAL Routine 10/17/2019 (CPK) 3:37 AM CDT MAGNESIUM LEVEL Routine 10/17/2019 3:37 AM CDT COMPREHENSIVE METABOLIC Routine 10/17/2019 PANEL 3:37 AM CDT CBC HEMOGRAM Routine 10/17/2019 3:20 AM CDT BASIC METABOLIC PANEL Routine 10/17/2019 2:29 AM CDT CREATINE KINASE, TOTAL Routine 10/17/2019 (CPK) 2:29 AM CDT HEPATIC FUNCTION PANEL Routine 10/17/2019 2:29 AM CDT MAGNESIUM LEVEL Routine 10/17/2019 2:29 AM CDT ARTERIAL BLOOD GAS Routine 10/17/2019 2:13 AM CDT CBC HEMOGRAM Routine 10/17/2019 2:13 AM CDT PARTIAL THROMBOPLASTIN Routine 10/17/2019 TIME (PTT) 2:13 AM CDT POC GLUCOSE Routine 10/17/2019 12:27 AM CDT POC GLUCOSE Routine 10/16/2019 8:[address] HEAD WO CONTRAST Routine 10/16/2019 5:[address] CHEST WO CONTRAST Routine 10/16/2019 ABDOMEN WO CONTRAST 5:50 PM CDT PELVIS WO CONTRAST POC GLUCOSE Routine 10/16/2019 3:39 PM CDT POC GLUCOSE Routine 10/16/2019 11:36 AM CDT POC GLUCOSE Routine 10/16/2019 7:32 AM CDT XR CHEST 1 VW PORTABLE Routine 10/16/2019 5:16 AM CDT POC GLUCOSE Routine 10/16/2019 4:33 AM CDT DIGOXIN LEVEL Routine 10/16/2019 2:00 AM CDT ESTIMATED GFR Routine 10/16/2019 2:00 AM CDT ARTERIAL BLOOD GAS Routine 10/16/2019 2:00 AM CDT MAGNESIUM LEVEL Routine 10/16/2019 2:00 AM CDT BASIC METABOLIC PANEL Routine 10/16/2019 2:00 AM CDT CBC HEMOGRAM Routine 10/16/2019 2:00 AM CDT PARTIAL THROMBOPLASTIN Routine 10/16/2019 TIME (PTT) 2:00 AM CDT PARTIAL THROMBOPLASTIN Timed 10/15/2019 TIME (PTT) 8:20 PM CDT POC GLUCOSE Routine 10/15/2019 8:12 PM CDT COVID-19 QUALITATIVE PCR Routine 10/15/2019 5:13 PM CDT BLOOD CULTURE, AEROBIC & Routine 10/15/2019 ANAEROBIC 4:45 PM CDT URINALYSIS SCREEN AND Routine 10/15/2019 MICROSCOPY, WITH REFLEX 4:30 PM CDT TO CULTURE URINE CULTURE Routine 10/15/2019 4:30 PM CDT POC GLUCOSE Routine 10/15/2019 3:40 PM CDT BLOOD CULTURE, AEROBIC & Routine 10/15/2019 ANAEROBIC 3:30 PM CDT WOUND VAC PLACEMENT Routine 10/15/2019 S/P L thor acotomy 1:47 PM CDT POC GLUCOSE Routine 10/15/2019 11:42 AM CDT XR CHEST 1 VW PORTABLE STAT 10/15/2019 10:40 AM CDT DIGOXIN LEVEL Routine 10/15/2019 8:30 AM CDT POTASSIUM LEVEL Routine 10/15/2019 8:30 AM CDT POC GLUCOSE Routine 10/15/2019 7:35 AM CDT XR CHEST 1 VW PORTABLE Routine 10/15/2019 6:22 AM CDT ECG 12-LEAD Routine 10/15/2019 5:11 AM CDT MAGNESIUM LEVEL Routine 10/15/2019 12:30 AM CDT ESTIMATED GFR Routine 10/15/2019 12:30 AM CDT PHOSPHORUS LEVEL Routine 10/15/2019 12:30 AM CDT BASIC METABOLIC PANEL Routine 10/15/2019 12:30 AM CDT IONIZED CALCIUM, ARTERIAL Routine 10/15/2019 12:10 AM CDT PARTIAL THROMBOPLASTIN Routine 10/15/2019 TIME (PTT) 12:10 AM CDT PROTHROMBIN TIME WITH INR Routine 10/15/2019 12:10 AM CDT HC COMPLETE BLD COUNT Routine 10/15/2019 W/AUTO DIFF 12:10 AM CDT ARTERIAL BLOOD GAS Routine 10/15/2019 12:10 AM CDT POC GLUCOSE Routine 10/14/2019 11:27 PM CDT POC GLUCOSE Routine 10/14/2019 8:26 PM CDT POTASSIUM LEVEL Routine 10/14/2019 5:45 PM CDT POC GLUCOSE Routine 10/14/2019 4:21 PM CDT POC GLUCOSE Routine 10/14/2019 11:49 AM CDT IONIZED CALCIUM Routine 10/14/2019 10:40 AM CDT PHOSPHORUS LEVEL Routine 10/14/2019 10:40 AM CDT MAGNESIUM LEVEL Routine 10/14/2019 10:40 AM CDT POTASSIUM LEVEL Routine 10/14/2019 10:40 AM CDT XR CHEST 1 VW PORTABLE STAT 10/14/2019 10:00 AM CDT POC GLUCOSE Routine 10/14/2019 7:57 AM CDT POC GLUCOSE Routine 10/14/2019 3:46 AM CDT ECG 12-LEAD Routine 10/14/2019 3:16 AM CDT XR CHEST 1 VW PORTABLE Routine 10/14/2019 2:21 AM CDT ESTIMATED GFR Routine 10/14/2019 12:35 AM CDT PHOSPHORUS LEVEL Routine 10/14/2019 12:35 AM CDT BASIC METABOLIC PANEL Routine 10/14/2019 12:35 AM CDT MAGNESIUM LEVEL Routine 10/14/2019 12:35 AM CDT IONIZED CALCIUM, ARTERIAL Routine 10/14/2019 12:15 AM CDT HC COMPLETE BLD COUNT Routine 10/14/2019 W/AUTO DIFF 12:15 AM CDT ARTERIAL BLOOD GAS Routine 10/14/2019 12:15 AM CDT PREPARE RBC Routine 10/14/2019 12:13 AM CDT TYPE AND SCREEN Routine 10/14/2019 12:13 AM CDT POC GLUCOSE Routine 10/13/2019 11:55 PM CDT POC GLUCOSE Routine 10/13/2019 7:40 PM CDT PHOSPHORUS LEVEL Routine 10/13/2019 6:15 PM CDT MAGNESIUM LEVEL Routine 10/13/2019 6:15 PM CDT POTASSIUM LEVEL Routine 10/13/2019 6:15 PM CDT THYROID STIMULATING Routine 10/13/2019 HORMONE 6:15 PM CDT POC GLUCOSE Routine 10/13/2019 4:03 PM CDT POC GLUCOSE Routine 10/13/2019 11:48 AM CDT XR CHEST 1 VW PORTABLE STAT 10/13/2019 10:40 AM CDT POTASSIUM LEVEL Routine 10/13/2019 10:29 AM CDT IONIZED CALCIUM Routine 10/13/2019 10:29 AM CDT PHOSPHORUS LEVEL Routine 10/13/2019 10:29 AM CDT MAGNESIUM LEVEL Routine 10/13/2019 10:29 AM CDT TRACHEOSTOMY 10/13/2019 RESP FAILURE 7:59 AM CDT Case Notes REQ 0800 START Special Needs REQ 0800 START POC GLUCOSE Routine 10/13/2019 7:31 AM CDT XR CHEST 1 VW PORTABLE Routine 10/13/2019 5:24 AM CDT ECG 12-LEAD Routine 10/13/2019 4:44 AM CDT POC GLUCOSE Routine 10/13/2019 3:53 AM CDT MAGNESIUM LEVEL Routine 10/13/2019 1:34 AM CDT PHOSPHORUS LEVEL Routine 10/13/2019 1:31 AM CDT ESTIMATED GFR Routine 10/13/2019 1:31 AM CDT BASIC METABOLIC PANEL Routine 10/13/2019 1:31 AM CDT IONIZED CALCIUM, ARTERIAL Routine 10/13/2019 1:23 AM CDT PARTIAL THROMBOPLASTIN Routine 10/13/2019 TIME (PTT) 1:23 AM CDT PROTHROMBIN TIME WITH INR Routine 10/13/2019 1:23 AM CDT HC COMPLETE BLD COUNT Routine 10/13/2019 W/AUTO DIFF 1:23 AM CDT ARTERIAL BLOOD GAS Routine 10/13/2019 1:23 AM CDT POC GLUCOSE Routine 10/12/2019 11:58 PM CDT POC GLUCOSE Routine 10/12/2019 7:44 PM CDT IONIZED CALCIUM Routine 10/12/2019 4:01 PM CDT PHOSPHORUS LEVEL Routine 10/12/2019 4:01 PM CDT MAGNESIUM LEVEL Routine 10/12/2019 4:01 PM CDT POTASSIUM LEVEL Routine 10/12/2019 4:01 PM CDT POC GLUCOSE Routine 10/12/2019 3:45 PM CDT POC GLUCOSE Routine 10/12/2019 11:57 AM CDT CONSULT TO OSTOMY CARE Routine 10/12/2019 NURSE 8:59 AM CDT POC GLUCOSE Routine 10/12/2019 7:50 AM CDT POC GLUCOSE Routine 10/12/2019 3:54 AM CDT XR CHEST 1 VW PORTABLE Routine 10/12/2019 1:46 AM CDT ESTIMATED GFR Routine 10/12/2019 12:48 AM CDT MAGNESIUM LEVEL Routine 10/12/2019 12:48 AM CDT BASIC METABOLIC PANEL Routine 10/12/2019 12:48 AM CDT POC GLUCOSE Routine 10/12/2019 12:23 AM CDT CBC HEMOGRAM Routine 10/12/2019 12:15 AM CDT POC GLUCOSE Routine 10/11/2019 7:49 PM CDT POC GLUCOSE Routine 10/11/2019 5:00 PM CDT COVID-19 QUALITATIVE PCR Routine 10/11/2019 4:13 PM CDT POC GLUCOSE Routine 10/11/2019 11:29 AM CDT POC GLUCOSE Routine 10/11/2019 7:43 AM CDT XR CHEST 1 VW PORTABLE Routine 10/11/2019 5:47 AM CDT ECG 12-LEAD Routine 10/11/2019 5:15 AM CDT POC GLUCOSE Routine 10/11/2019 3:59 AM CDT ARTERIAL BLOOD GAS Routine 10/11/2019 12:52 AM CDT ESTIMATED GFR Routine 10/11/2019 12:52 AM CDT PROTHROMBIN TIME WITH INR Routine 10/11/2019 12:52 AM CDT PHOSPHORUS LEVEL Routine 10/11/2019 12:52 AM CDT MAGNESIUM LEVEL Routine 10/11/2019 12:52 AM CDT IONIZED CALCIUM Routine 10/11/2019 12:52 AM CDT HC COMPLETE BLD COUNT Routine 10/11/2019 W/AUTO DIFF 12:52 AM CDT BASIC METABOLIC PANEL Routine 10/11/2019 12:52 AM CDT POC GLUCOSE Routine 10/10/2019 11:39 PM CDT XR ABDOMEN 1 VW PORTABLE Routine 10/10/2019 7:56 PM CDT POC GLUCOSE Routine 10/10/2019 7:26 PM CDT POC GLUCOSE Routine 10/10/2019 3:42 PM CDT CBC HEMOGRAM Routine 10/10/2019 2:39 PM CDT POC GLUCOSE Routine 10/10/2019 11:43 AM CDT POC GLUCOSE Routine 10/10/2019 7:23 AM CDT XR CHEST 1 VW PORTABLE Routine 10/10/2019 5:52 AM CDT POC GLUCOSE Routine 10/10/2019 4:00 AM CDT ECG 12-LEAD Routine 10/10/2019 3:21 AM CDT CREATINE KINASE, TOTAL Routine 10/10/2019 (CPK) 1:20 AM CDT ESTIMATED GFR Routine 10/10/2019 1:20 AM CDT PHOSPHORUS LEVEL Routine 10/10/2019 1:20 AM CDT MAGNESIUM LEVEL Routine 10/10/2019 1:20 AM CDT IONIZED CALCIUM Routine 10/10/2019 1:20 AM CDT BASIC METABOLIC PANEL Routine 10/10/2019 1:20 AM CDT ARTERIAL BLOOD GAS Routine 10/10/2019 12:45 AM CDT TYPE AND SCREEN Routine 10/10/2019 12:45 AM CDT PROTHROMBIN TIME WITH INR Routine 10/10/2019 12:45 AM CDT HC COMPLETE BLD COUNT Routine 10/10/2019 W/AUTO DIFF 12:45 AM CDT POC GLUCOSE Routine 10/10/2019 12:06 AM CDT POC GLUCOSE Routine 10/09/2019 7:44 PM CDT POC GLUCOSE Routine 10/09/2019 4:56 PM CDT HEMOGLOBIN & HEMATOCRIT Routine 10/09/2019 3:11 PM CDT TRANSFUSE RED BLOOD CELLS Routine 10/09/2019 2:51 PM CDT POC GLUCOSE Routine 10/09/2019 12:28 PM CDT POC GLUCOSE Routine 10/09/2019 8:18 AM CDT XR CHEST 1 VW PORTABLE Routine 10/09/2019 6:24 AM CDT ECG 12-LEAD Routine 10/09/2019 4:29 AM CDT POC GLUCOSE Routine 10/09/2019 3:57 AM CDT ESTIMATED GFR Routine 10/09/2019 2:05 AM CDT IONIZED CALCIUM, ARTERIAL Routine 10/09/2019 2:05 AM CDT PARTIAL THROMBOPLASTIN Routine 10/09/2019 TIME (PTT) 2:05 AM CDT PROTHROMBIN TIME WITH INR Routine 10/09/2019 2:05 AM CDT PHOSPHORUS LEVEL Routine 10/09/2019 2:05 AM CDT MAGNESIUM LEVEL Routine 10/09/2019 2:05 AM CDT BASIC METABOLIC PANEL Routine 10/09/2019 2:05 AM CDT HC COMPLETE BLD COUNT Routine 10/09/2019 W/AUTO DIFF 2:05 AM CDT ARTERIAL BLOOD GAS Routine 10/09/2019 2:05 AM CDT POC GLUCOSE Routine 10/08/2019 11:55 PM CDT POC GLUCOSE Routine 10/08/2019 11:09 PM CDT HEMOGLOBIN & HEMATOCRIT STAT 10/08/2019 10:00 PM CDT POC GLUCOSE Routine 10/08/2019 9:59 PM CDT POC GLUCOSE Routine 10/08/2019 9:05 PM CDT POC GLUCOSE Routine 10/08/2019 7:55 PM CDT ECG 12-LEAD STAT 10/08/2019 7:29 PM CDT POC GLUCOSE Routine 10/08/2019 6:48 PM CDT XR CHEST 1 VW PORTABLE STAT 10/08/2019 6:31 PM CDT IONIZED CALCIUM, ARTERIAL STAT 10/08/2019 6:20 PM CDT ESTIMATED GFR STAT 10/08/2019 6:20 PM CDT PROTHROMBIN TIME WITH INR STAT 10/08/2019 6:20 PM CDT PHOSPHORUS LEVEL STAT 10/08/2019 6:20 PM CDT PARTIAL THROMBOPLASTIN STAT 10/08/2019 TIME (PTT) 6:20 PM CDT MAGNESIUM LEVEL STAT 10/08/2019 6:20 PM CDT CBC HEMOGRAM STAT 10/08/2019 6:20 PM CDT BASIC METABOLIC PANEL STAT 10/08/2019 6:20 PM CDT ARTERIAL BLOOD GAS STAT 10/08/2019 6:20 PM CDT TRANSFUSE RED BLOOD CELLS Routine 10/08/2019 4:52 PM CDT TRANSFUSE FRESH FROZEN Routine 10/08/2019 PLASMA 4:32 PM CDT IONIZED CALCIUM, VENOUS STAT 10/08/2019 4:11 PM CDT GLUCOSE LEVEL, SYRINGE STAT 10/08/2019 4:11 PM CDT POTASSIUM, SYRINGE STAT 10/08/2019 4:11 PM CDT HEMOGLOBIN, SYRINGE STAT 10/08/2019 4:11 PM CDT O2 SATURATION, VENOUS STAT 10/08/2019 4:11 PM CDT SODIUM LEVEL, SYRINGE STAT 10/08/2019 4:11 PM CDT VENOUS BLOOD GAS, STAT 10/08/2019 CORRECTED 4:11 PM CDT TISSUE CULTURE Timed 10/08/2019 4:07 PM CDT GRAM STAIN Timed 10/08/2019 4:07 PM CDT AFB STAIN Timed 10/08/2019 4:07 PM CDT FUNGUS SMEAR Timed 10/08/2019 4:07 PM CDT AFB CULTURE Timed 10/08/2019 [facility] (HCC) 4:07 PM CDT FUNGUS CULTURE Timed 10/08/2019 [facility] (HCC) 4:07 PM CDT ANAEROBIC CULTURE Timed 10/08/2019 [facility] (HCC ) 4:07 PM CDT TRANSFUSE RED BLOOD CELLS Routine 10/08/2019 3:38 PM CDT IONIZED CALCIUM, VENOUS STAT 10/08/2019 2:55 PM CDT GLUCOSE LEVEL, SYRINGE STAT 10/08/2019 2:55 PM CDT HEMOGLOBIN, SYRINGE STAT 10/08/2019 2:55 PM CDT POTASSIUM, SYRINGE STAT 10/08/2019 2:55 PM CDT VENOUS BLOOD GAS, STAT 10/08/2019 CORRECTED 2:55 PM CDT SODIUM LEVEL, SYRINGE STAT 10/08/2019 2:55 PM CDT O2 SATURATION, VENOUS STAT 10/08/2019 2:55 PM CDT TRANSFUSE RED BLOOD CELLS Routine 10/08/2019 2:34 PM CDT VENOUS BLOOD GAS, STAT 10/08/2019 CORRECTED 2:19 PM CDT IONIZED CALCIUM, VENOUS STAT 10/08/2019 2:19 PM CDT GLUCOSE LEVEL, SYRINGE STAT 10/08/2019 2:19 PM CDT HEMOGLOBIN, SYRINGE STAT 10/08/2019 2:19 PM CDT POTASSIUM, SYRINGE STAT 10/08/2019 2:19 PM CDT SODIUM LEVEL, SYRINGE STAT 10/08/2019 2:19 PM CDT SURGICAL PATHOLOGY Routine 10/08/2019 REQUEST 1:59 PM CDT PLATELET COUNT STAT 10/08/2019 1:41 PM CDT HEMATOCRIT STAT 10/08/2019 1:41 PM CDT FIBRINOGEN STAT 10/08/2019 1:41 PM CDT PROTHROMBIN TIME WITH INR STAT 10/08/2019 1:41 PM CDT VENOUS BLOOD GAS, STAT 10/08/2019 CORRECTED 1:41 PM CDT IONIZED CALCIUM, VENOUS STAT 10/08/2019 1:41 PM CDT HEMOGLOBIN, SYRINGE STAT 10/08/2019 1:41 PM CDT GLUCOSE LEVEL, SYRINGE STAT 10/08/2019 1:41 PM CDT SODIUM LEVEL, SYRINGE STAT 10/08/2019 1:41 PM CDT POTASSIUM, SYRINGE STAT 10/08/2019 1:41 PM CDT TISSUE CULTURE Timed 10/08/2019 1:25 PM CDT AFB STAIN Timed 10/08/2019 1:25 PM CDT GRAM STAIN Timed 10/08/2019 1:25 PM CDT FUNGUS SMEAR Timed 10/08/2019 1:25 PM CDT AFB CULTURE Timed 10/08/2019 [facility] (HCC) 1:25 PM CDT FUNGUS CULTURE Timed 10/08/2019 [facility] (HCC) 1:25 PM CDT ANAEROBIC CULTURE Timed 10/08/2019 [facility] (HCC ) 1:25 PM CDT ANESTHESIA INTUBATION Routine 10/08/2019 1:07 PM CDT GLUCOSE LEVEL, SYRINGE STAT 10/08/2019 12:57 PM CDT IONIZED CALCIUM, ARTERIAL STAT 10/08/2019 12:57 PM CDT HEMOGLOBIN, SYRINGE STAT 10/08/2019 12:57 PM CDT SODIUM LEVEL, SYRINGE STAT 10/08/2019 12:57 PM CDT POTASSIUM, SYRINGE STAT 10/08/2019 12:57 PM CDT ARTERIAL BLOOD GAS, STAT 10/08/2019 CORRECTED 12:57 PM CDT POC GLUCOSE Routine 10/08/2019 9:30 AM CDT POC GLUCOSE Routine 10/08/2019 4:29 AM CDT XR CHEST 1 VW PORTABLE Routine 10/08/2019 3:59 AM CDT ARTERIAL BLOOD GAS Routine 10/08/2019 2:08 AM CDT ESTIMATED GFR Routine 10/08/2019 2:00 AM CDT PROTHROMBIN TIME WITH INR Routine 10/08/2019 2:00 AM CDT PARTIAL THROMBOPLASTIN Routine 10/08/2019 TIME (PTT) 2:00 AM CDT PHOSPHORUS LEVEL Routine 10/08/2019 2:00 AM CDT MAGNESIUM LEVEL Routine 10/08/2019 2:00 AM CDT BASIC METABOLIC PANEL Routine 10/08/2019 2:00 AM CDT HC COMPLETE BLD COUNT Routine 10/08/2019 W/AUTO DIFF 2:00 AM CDT POC GLUCOSE Routine 10/08/2019 12:22 AM CDT PARTIAL THROMBOPLASTIN Routine 10/07/2019 TIME (PTT) 9:25 PM CDT POC GLUCOSE Routine 10/07/2019 9:04 PM CDT POC GLUCOSE Routine 10/07/2019 5:16 PM CDT POC GLUCOSE Routine 10/07/2019 11:45 AM CDT PARTIAL THROMBOPLASTIN Timed 10/07/2019 TIME (PTT) 8:40 AM CDT POC GLUCOSE Routine 10/07/2019 8:29 AM CDT XR CHEST 1 VW PORTABLE Routine 10/07/2019 3:58 AM CDT POC GLUCOSE Routine 10/07/2019 3:53 AM CDT POC GLUCOSE Routine 10/07/2019 2:01 AM CDT PARTIAL THROMBOPLASTIN Routine 10/07/2019 TIME (PTT) 12:41 AM CDT ESTIMATED GFR Routine 10/07/2019 12:41 AM CDT MAGNESIUM LEVEL Routine 10/07/2019 12:41 AM CDT CBC HEMOGRAM Routine 10/07/2019 12:41 AM CDT ARTERIAL BLOOD GAS Routine 10/07/2019 12:41 AM CDT BASIC METABOLIC PANEL Routine 10/07/2019 12:41 AM CDT POC GLUCOSE Routine 10/06/2019 8:00 PM CDT URINALYSIS SCREEN AND Routine 10/06/2019 MICROSCOPY, WITH REFLEX 4:25 PM CDT TO CULTURE UREA NITROGEN, URINE, Routine 10/06/2019 RANDOM 4:25 PM CDT CREATININE LEVEL, URINE, Routine 10/06/2019 RANDOM 4:25 PM CDT SODIUM LEVEL, URINE, Routine 10/06/2019 RANDOM 4:25 PM CDT URINE CULTURE Routine 10/06/2019 4:25 PM CDT POC GLUCOSE Routine 10/06/2019 3:35 PM CDT PARTIAL THROMBOPLASTIN Routine 10/06/2019 TIME (PTT) 3:10 PM CDT COVID-19 QUALITATIVE PCR Routine 10/06/2019 2:00 PM CDT POC GLUCOSE Routine 10/06/2019 11:36 AM CDT US DUPLEX VENOUS UPPER Routine 10/06/2019 EXTREMITY LEFT 11:30 AM CDT US DUPLEX VENOUS LOWER Routine 10/06/2019 EXTREMITY BILATERAL 11:[address] CHEST WO CONTRAST Routine 10/06/2019 10:15 AM CDT PARTIAL THROMBOPLASTIN Routine 10/06/2019 TIME (PTT) 8:20 AM CDT POC GLUCOSE Routine 10/06/2019 7:36 AM CDT ECG 12-LEAD Routine 10/06/2019 5:29 AM CDT XR CHEST 1 VW PORTABLE Routine 10/06/2019 5:06 AM CDT ARTERIAL BLOOD GAS Routine 10/06/2019 4:46 AM CDT POC GLUCOSE Routine 10/06/2019 4:03 AM CDT IONIZED CALCIUM Routine 10/06/2019 2:30 AM CDT ESTIMATED GFR Routine 10/06/2019 1:40 AM CDT PHOSPHORUS LEVEL Routine 10/06/2019 1:40 AM CDT MAGNESIUM LEVEL Routine 10/06/2019 1:40 AM CDT BASIC METABOLIC PANEL Routine 10/06/2019 1:40 AM CDT PREPARE RBC Routine 10/06/2019 1:10 AM CDT PREPARE FRESH FROZEN Routine 10/06/2019 PLASMA 1:10 AM CDT PREPARE RBC Routine 10/06/2019 1:10 AM CDT PREPARE RBC Routine 10/06/2019 1:10 AM CDT TYPE AND SCREEN Routine 10/06/2019 1:10 AM CDT HC COMPLETE BLD COUNT Routine 10/06/2019 W/AUTO DIFF 1:00 AM CDT POC GLUCOSE Routine 10/06/2019 12:00 AM CDT SODIUM LEVEL, SYRINGE Routine 10/05/2019 9:38 PM CDT CHLORIDE LEVEL, SYRINGE Routine 10/05/2019 9:38 PM CDT POTASSIUM, SYRINGE Routine 10/05/2019 9:38 PM CDT HEMOGLOBIN, SYRINGE Routine 10/05/2019 9:38 PM CDT ARTERIAL BLOOD GAS Routine 10/05/2019 9:38 PM CDT PARTIAL THROMBOPLASTIN Routine 10/05/2019 TIME (PTT) 9:38 PM CDT POC GLUCOSE Routine 10/05/2019 7:59 PM CDT PARTIAL THROMBOPLASTIN STAT 10/05/2019 TIME (PTT) 6:13 PM CDT POC GLUCOSE Routine 10/05/2019 5:54 PM CDT POC GLUCOSE Routine 10/05/2019 5:04 PM CDT POC GLUCOSE Routine 10/05/2019 4:27 PM CDT BLOOD CULTURE, AEROBIC & Routine 10/05/2019 ANAEROBIC 3:58 PM CDT PARTIAL THROMBOPLASTIN Routine 10/05/2019 TIME (PTT) 3:38 PM CDT PROTHROMBIN TIME WITH INR Routine 10/05/2019 3:38 PM CDT POC GLUCOSE Routine 10/05/2019 3:14 PM CDT TTE LIMITED, WO CONTRAST, STAT 10/05/2019 W DOPPLER ([id number]) 2:56 PM CDT XR CHEST 1 VW PORTABLE STAT 10/05/2019 2:05 PM CDT PROTHROMBIN TIME WITH INR Routine 10/05/2019 1:58 PM CDT PARTIAL THROMBOPLASTIN Routine 10/05/2019 TIME (PTT) 1:58 PM CDT ESTIMATED GFR STAT 10/05/2019 1:58 PM CDT BASIC METABOLIC PANEL STAT 10/05/2019 1:58 PM CDT VANCOMYCIN LEVEL, RANDOM STAT 10/05/2019 1:58 PM CDT HC COMPLETE BLD COUNT STAT 10/05/2019 W/AUTO DIFF 1:55 PM CDT ARTERIAL BLOOD GAS STAT 10/05/2019 1:55 PM CDT POC GLUCOSE Routine 10/05/2019 1:48 PM CDT GLUCOSE LEVEL, SYRINGE STAT 10/05/2019 12:51 PM CDT SODIUM LEVEL, SYRINGE STAT 10/05/2019 12:51 PM CDT POTASSIUM, SYRINGE STAT 10/05/2019 12:51 PM CDT IONIZED CALCIUM, ARTERIAL STAT 10/05/2019 12:51 PM CDT HEMOGLOBIN, SYRINGE STAT 10/05/2019 12:51 PM CDT ARTERIAL BLOOD GAS, STAT 10/05/2019 CORRECTED 12:51 PM CDT OR [place] > 1 HOUR Routine 10/05/2019 12:40 PM CDT ARTERIAL LINE Routine 10/05/2019 12:35 PM CDT ARTERIAL BLOOD GAS, STAT 10/05/2019 CORRECTED 12:34 PM CDT SODIUM LEVEL, SYRINGE STAT 10/05/2019 12:34 PM CDT POTASSIUM, SYRINGE STAT 10/05/2019 12:34 PM CDT HEMOGLOBIN, SYRINGE STAT 10/05/2019 12:34 PM CDT IONIZED CALCIUM, ARTERIAL STAT 10/05/2019 12:34 PM CDT GLUCOSE LEVEL, SYRINGE STAT 10/05/2019 12:34 PM CDT ACTIVATED CLOTTING TIME Routine 10/05/2019 12:32 PM CDT ARTERIAL BLOOD GAS, STAT 10/05/2019 CORRECTED 12:16 PM CDT SODIUM LEVEL, SYRINGE STAT 10/05/2019 12:16 PM CDT HEMOGLOBIN, SYRINGE STAT 10/05/2019 12:16 PM CDT POTASSIUM, SYRINGE STAT 10/05/2019 12:16 PM CDT IONIZED CALCIUM, ARTERIAL STAT 10/05/2019 12:16 PM CDT GLUCOSE LEVEL, SYRINGE STAT 10/05/2019 12:16 PM CDT ACTIVATED CLOTTING TIME Routine 10/05/2019 12:15 PM CDT GLUCOSE LEVEL, SYRINGE STAT 10/05/2019 10:58 AM CDT HEMOGLOBIN, SYRINGE STAT 10/05/2019 10:58 AM CDT IONIZED CALCIUM, ARTERIAL STAT 10/05/2019 10:58 AM CDT POTASSIUM, SYRINGE STAT 10/05/2019 10:58 AM CDT SODIUM LEVEL, SYRINGE STAT 10/05/2019 10:58 AM CDT ARTERIAL BLOOD GAS, STAT 10/05/2019 CORRECTED 10:58 AM CDT GLUCOSE LEVEL, SYRINGE STAT 10/05/2019 10:35 AM CDT LACTIC ACID, SYRINGE STAT 10/05/2019 10:35 AM CDT IONIZED CALCIUM, ARTERIAL STAT 10/05/2019 10:35 AM CDT HEMOGLOBIN, SYRINGE STAT 10/05/2019 10:35 AM CDT POTASSIUM, SYRINGE STAT 10/05/2019 10:35 AM CDT SODIUM LEVEL, SYRINGE STAT 10/05/2019 10:35 AM CDT ARTERIAL BLOOD GAS, STAT 10/05/2019 CORRECTED 10:35 AM CDT TRANSFUSE RED BLOOD CELLS Routine 10/05/2019 9:18 AM CDT TRANSFUSE RED BLOOD CELLS Routine 10/05/2019 9:18 AM CDT XR CHEST 1 VW PORTABLE Routine 10/05/2019 6:08 AM CDT POC GLUCOSE Routine 10/05/2019 3:54 AM CDT ESTIMATED GFR Routine 10/05/2019 3:30 AM CDT TRIGLYCERIDES Routine 10/05/2019 3:30 AM CDT PHOSPHORUS LEVEL Routine 10/05/2019 3:30 AM CDT MAGNESIUM LEVEL Routine 10/05/2019 3:30 AM CDT BASIC METABOLIC PANEL Routine 10/05/2019 3:30 AM CDT HC COMPLETE BLD COUNT Routine 10/05/2019 W/AUTO DIFF 3:30 AM CDT PROTHROMBIN TIME WITH INR Routine 10/05/2019 3:30 AM CDT PARTIAL THROMBOPLASTIN Routine 10/05/2019 TIME (PTT) 3:30 AM CDT POC GLUCOSE Routine 10/04/2019 11:41 PM CDT TRANSFUSE RED BLOOD CELLS Routine 10/04/2019 10:05 PM CDT POC GLUCOSE Routine 10/04/2019 7:54 PM CDT POC GLUCOSE Routine 10/04/2019 3:25 PM CDT POC GLUCOSE Routine 10/04/2019 11:18 AM CDT POC GLUCOSE Routine 10/04/2019 7:34 AM CDT XR CHEST 1 VW PORTABLE Routine 10/04/2019 6:15 AM CDT POC GLUCOSE Routine 10/04/2019 4:01 AM CDT ESTIMATED GFR Routine 10/04/2019 2:30 AM CDT MAGNESIUM LEVEL Routine 10/04/2019 2:30 AM CDT CBC HEMOGRAM Routine 10/04/2019 2:30 AM CDT BASIC METABOLIC PANEL Routine 10/04/2019 2:30 AM CDT ARTERIAL BLOOD GAS Routine 10/04/2019 2:30 AM CDT POC GLUCOSE Routine 10/04/2019 12:17 AM CDT POC GLUCOSE Routine 10/03/2019 8:07 PM CDT IONIZED CALCIUM, ARTERIAL Routine 10/03/2019 7:53 PM CDT MAGNESIUM LEVEL Routine 10/03/2019 7:30 PM CDT POTASSIUM LEVEL Routine 10/03/2019 7:30 PM CDT POC GLUCOSE Routine 10/03/2019 4:14 PM CDT VANCOMYCIN LEVEL, RANDOM Routine 10/03/2019 12:17 PM CDT HEMOGLOBIN & HEMATOCRIT Routine 10/03/2019 12:17 PM CDT POC GLUCOSE Routine 10/03/2019 11:44 AM CDT POC GLUCOSE Routine 10/03/2019 8:30 AM CDT TRANSFUSE RED BLOOD CELLS Routine 10/03/2019 6:48 AM CDT XR CHEST 1 VW PORTABLE Routine 10/03/2019 5:12 AM CDT POC GLUCOSE Routine 10/03/2019 4:13 AM CDT COVID-19 QUALITATIVE PCR Routine 10/03/2019 2:00 AM CDT ESTIMATED GFR Routine 10/03/2019 1:48 AM CDT MAGNESIUM LEVEL Routine 10/03/2019 1:48 AM CDT BASIC METABOLIC PANEL Routine 10/03/2019 1:48 AM CDT CBC HEMOGRAM Routine 10/03/2019 1:20 AM CDT POC GLUCOSE Routine 10/03/2019 12:24 AM CDT POC GLUCOSE Routine 10/02/2019 8:35 PM CDT POC GLUCOSE Routine 10/02/2019 4:59 PM CDT ARTERIAL BLOOD GAS STAT 10/02/2019 4:45 PM CDT ECG 12-LEAD STAT 10/02/2019 4:22 PM CDT POC GLUCOSE Routine 10/02/2019 12:09 PM CDT POC GLUCOSE Routine 10/02/2019 10:38 AM CDT IONIZED CALCIUM, ARTERIAL Routine 10/02/2019 10:00 AM CDT SODIUM LEVEL Routine 10/02/2019 10:00 AM CDT PHOSPHORUS LEVEL Routine 10/02/2019 10:00 AM CDT MAGNESIUM LEVEL Routine 10/02/2019 10:00 AM CDT POTASSIUM LEVEL Routine 10/02/2019 10:00 AM CDT VANCOMYCIN LEVEL, RANDOM Routine 10/02/2019 10:00 AM CDT POC GLUCOSE Routine 10/02/2019 7:58 AM CDT POC GLUCOSE Routine 10/02/2019 4:56 AM CDT XR CHEST 1 VW PORTABLE Routine 10/02/2019 3:26 AM CDT ESTIMATED GFR Routine 10/02/2019 2:15 AM CDT MAGNESIUM LEVEL Routine 10/02/2019 2:15 AM CDT BASIC METABOLIC PANEL Routine 10/02/2019 2:15 AM CDT ARTERIAL BLOOD GAS Routine 10/02/2019 1:35 AM CDT CBC HEMOGRAM Routine 10/02/2019 1:35 AM CDT PREPARE RBC Routine 10/02/2019 1:25 AM CDT PREPARE RBC Routine 10/02/2019 1:25 AM CDT PREPARE RBC Routine 10/02/2019 1:25 AM CDT TYPE AND SCREEN Routine 10/02/2019 1:25 AM CDT POC GLUCOSE Routine 10/02/2019 12:30 AM CDT POC GLUCOSE Routine 10/01/2019 8:42 PM CDT URINALYSIS SCREEN AND Routine 10/01/2019 MICROSCOPY, WITH REFLEX 5:15 PM CDT TO CULTURE CHLORIDE LEVEL, URINE, Routine 10/01/2019 RANDOM 5:15 PM CDT POTASSIUM, URINE, RANDOM Routine 10/01/2019 5:15 PM CDT SODIUM LEVEL, URINE, Routine 10/01/2019 RANDOM 5:15 PM CDT URINE CULTURE Routine 10/01/2019 5:15 PM CDT POC GLUCOSE Routine 10/01/2019 3:35 PM CDT XR CHEST 1 VW PORTABLE Routine 10/01/2019 3:25 PM CDT POC GLUCOSE Routine 10/01/2019 11:35 AM CDT GENERAL Routine 10/01/2019 Pleural effusio n, left 11:23 AM CDT VANCOMYCIN LEVEL, TROUGH Timed 10/01/2019 10:18 AM CDT POC GLUCOSE Routine 10/01/2019 7:30 AM CDT XR CHEST 1 VW PORTABLE Routine 10/01/2019 6:04 AM CDT POC GLUCOSE Routine 10/01/2019 4:19 AM CDT ESTIMATED GFR Routine 10/01/2019 1:34 AM CDT IONIZED CALCIUM, ARTERIAL Routine 10/01/2019 1:34 AM CDT ARTERIAL BLOOD GAS Routine 10/01/2019 1:34 AM CDT PHOSPHORUS LEVEL Routine 10/01/2019 1:34 AM CDT MAGNESIUM LEVEL Routine 10/01/2019 1:34 AM CDT HC COMPLETE BLD COUNT Routine 10/01/2019 W/AUTO DIFF 1:34 AM CDT BASIC METABOLIC PANEL Routine 10/01/2019 1:34 AM CDT POC GLUCOSE Routine 10/01/2019 12:08 AM CDT POC GLUCOSE Routine 09/30/2019 8:01 PM CDT XR CHEST 1 VW PORTABLE Routine 09/30/2019 5:06 PM CDT POC GLUCOSE Routine 09/30/2019 4:05 PM CDT POC GLUCOSE Routine 09/30/2019 12:31 PM CDT GENERAL Routine 09/30/2019 Pleural effusio n, left 12:22 PM CDT ARTERIAL BLOOD GAS STAT 09/30/2019 8:25 AM CDT LACTIC ACID LEVEL STAT 09/30/2019 8:05 AM CDT POC GLUCOSE Routine 09/30/2019 7:34 AM CDT XR CHEST 1 VW PORTABLE Routine 09/30/2019 6:14 AM CDT POC GLUCOSE Routine 09/30/2019 3:53 AM CDT ESTIMATED GFR Routine 09/30/2019 1:19 AM CDT IONIZED CALCIUM, ARTERIAL Routine 09/30/2019 1:19 AM CDT PHOSPHORUS LEVEL Routine 09/30/2019 1:19 AM CDT MAGNESIUM LEVEL Routine 09/30/2019 1:19 AM CDT ARTERIAL BLOOD GAS Routine 09/30/2019 1:19 AM CDT BASIC METABOLIC PANEL Routine 09/30/2019 1:19 AM CDT HC COMPLETE BLD COUNT Routine 09/30/2019 W/AUTO DIFF 1:19 AM CDT POC GLUCOSE Routine 09/29/2019 11:49 PM CDT POC GLUCOSE Routine 09/29/2019 7:51 PM CDT POC GLUCOSE Routine 09/29/2019 3:28 PM CDT XR CHEST 1 VW PORTABLE Routine 09/29/2019 2:57 PM CDT POC GLUCOSE Routine 09/29/2019 11:33 AM CDT GENERAL Routine 09/29/2019 Pleural effusio n, left 10:22 AM CDT POC GLUCOSE Routine 09/29/2019 7:31 AM CDT POC GLUCOSE Routine 09/29/2019 4:36 AM CDT XR CHEST 1 VW PORTABLE Routine 09/29/2019 4:29 AM CDT ESTIMATED GFR Routine 09/29/2019 2:00 AM CDT MAGNESIUM LEVEL Routine 09/29/2019 2:00 AM CDT BASIC METABOLIC PANEL Routine 09/29/2019 2:00 AM CDT CBC HEMOGRAM Routine 09/29/2019 1:35 AM CDT ARTERIAL BLOOD GAS Routine 09/29/2019 1:35 AM CDT POC GLUCOSE Routine 09/29/2019 12:24 AM CDT VANCOMYCIN LEVEL, TROUGH Timed 09/28/2019 8:10 PM CDT POC GLUCOSE Routine 09/28/2019 8:04 PM CDT POC GLUCOSE Routine 09/28/2019 3:17 PM CDT XR CHEST 1 VW PORTABLE Routine 09/28/2019 2:25 PM CDT POC GLUCOSE Routine 09/28/2019 11:37 AM CDT GENERAL Routine 09/28/2019 Pleural effusio n, left 10:41 AM CDT VANCOMYCIN LEVEL, TROUGH Timed 09/28/2019 10:30 AM CDT POC GLUCOSE Routine 09/28/2019 7:31 AM CDT XR CHEST 1 VW PORTABLE Routine 09/28/2019 6:12 AM CDT POC GLUCOSE Routine 09/28/2019 5:24 AM CDT PHOSPHORUS LEVEL Routine 09/28/2019 1:13 AM CDT ESTIMATED GFR Routine 09/28/2019 1:13 AM CDT MAGNESIUM LEVEL Routine 09/28/2019 1:13 AM CDT BASIC METABOLIC PANEL Routine 09/28/2019 1:13 AM CDT TYPE AND SCREEN Routine 09/28/2019 12:23 AM CDT ARTERIAL BLOOD GAS Routine 09/28/2019 12:23 AM CDT CBC HEMOGRAM Routine 09/28/2019 12:23 AM CDT POC GLUCOSE Routine 09/27/2019 11:59 PM CDT POC GLUCOSE Routine 09/27/2019 8:27 PM CDT POC GLUCOSE Routine 09/27/2019 3:55 PM CDT XR CHEST 1 VW PORTABLE Routine 09/27/2019 2:51 PM CDT POC GLUCOSE Routine 09/27/2019 11:37 AM CDT GENERAL Routine 09/27/2019 Pleural effusio n, left 10:58 AM CDT POC GLUCOSE Routine 09/27/2019 7:50 AM CDT XR CHEST 1 VW PORTABLE Routine 09/27/2019 5:30 AM CDT POC GLUCOSE Routine 09/27/2019 3:46 AM CDT ESTIMATED GFR Routine 09/27/2019 12:11 AM CDT HEPATIC FUNCTION PANEL Routine 09/27/2019 12:11 AM CDT MAGNESIUM LEVEL Routine 09/27/2019 12:11 AM CDT BASIC METABOLIC PANEL Routine 09/27/2019 12:11 AM CDT ARTERIAL BLOOD GAS Routine 09/27/2019 12:05 AM CDT CBC HEMOGRAM Routine 09/27/2019 12:05 AM CDT POC GLUCOSE Routine 09/26/2019 11:45 PM CDT POC GLUCOSE Routine 09/26/2019 7:41 PM CDT POC GLUCOSE Routine 09/26/2019 4:[address] CHEST W CONTRAST STAT 09/26/2019 ABDOMEN W CONTRAST PELVIS 3:33 PM CDT W CONTRAST XR CHEST 1 VW PORTABLE Timed 09/26/2019 2:19 PM CDT POC GLUCOSE Routine 09/26/2019 11:54 AM CDT POC GLUCOSE Routine 09/26/2019 7:48 AM CDT XR CHEST 1 VW PORTABLE Routine 09/26/2019 5:29 AM CDT POC GLUCOSE Routine 09/26/2019 3:29 AM CDT ESTIMATED GFR Routine 09/26/2019 2:10 AM CDT ARTERIAL BLOOD GAS Routine 09/26/2019 2:10 AM CDT MAGNESIUM LEVEL Routine 09/26/2019 2:10 AM CDT CBC HEMOGRAM Routine 09/26/2019 2:10 AM CDT BASIC METABOLIC PANEL Routine 09/26/2019 2:10 AM CDT POC GLUCOSE Routine 09/26/2019 12:05 AM CDT POC GLUCOSE Routine 09/25/2019 7:40 PM CDT US HEPATIC Routine 09/25/2019 4:45 PM CDT XR CHEST 1 VW PORTABLE Timed 09/25/2019 4:03 PM CDT POC GLUCOSE Routine 09/25/2019 4:00 PM CDT URINE CULTURE Routine 09/25/2019 3:04 PM CDT POC GLUCOSE Routine 09/25/2019 11:53 AM CDT URINALYSIS SCREEN AND Routine 09/25/2019 MICROSCOPY, WITH REFLEX 11:50 AM CDT TO CULTURE GRAM STAIN Routine 09/25/2019 10:10 AM CDT SPUTUM CULTURE Routine 09/25/2019 10:10 AM CDT BLOOD CULTURE, AEROBIC & Routine 09/25/2019 ANAEROBIC 9:18 AM CDT BLOOD CULTURE, AEROBIC & Routine 09/25/2019 ANAEROBIC 9:00 AM CDT POC GLUCOSE Routine 09/25/2019 7:42 AM CDT POC GLUCOSE Routine 09/25/2019 4:13 AM CDT XR CHEST 1 VW PORTABLE Routine 09/25/2019 4:11 AM CDT TRANSFUSE RED BLOOD CELLS Routine 09/25/2019 3:09 AM CDT PHOSPHORUS LEVEL Routine 09/25/2019 12:40 AM CDT BILIRUBIN DIRECT Routine 09/25/2019 12:40 AM CDT ESTIMATED GFR Routine 09/25/2019 12:40 AM CDT MAGNESIUM LEVEL Routine 09/25/2019 12:40 AM CDT COMPREHENSIVE METABOLIC Routine 09/25/2019 PANEL 12:40 AM CDT IONIZED CALCIUM, ARTERIAL Routine 09/25/2019 12:36 AM CDT CBC HEMOGRAM Routine 09/25/2019 12:36 AM CDT ARTERIAL BLOOD GAS Routine 09/25/2019 12:36 AM CDT POC GLUCOSE Routine 09/25/2019 12:17 AM CDT POC GLUCOSE Routine 09/24/2019 8:06 PM CDT COVID-19 QUALITATIVE PCR Routine 09/24/2019 6:41 PM CDT POC GLUCOSE Routine 09/24/2019 3:56 PM CDT POC GLUCOSE Routine 09/24/2019 11:47 AM CDT ECG 12-LEAD Routine 09/24/2019 10:34 AM CDT POC GLUCOSE Routine 09/24/2019 7:49 AM CDT POC GLUCOSE Routine 09/24/2019 4:26 AM CDT XR CHEST 1 VW PORTABLE Routine 09/24/2019 4:00 AM CDT PREPARE RBC Routine 09/24/2019 12:06 AM CDT MANUAL DIFFERENTIAL Routine 09/24/2019 12:06 AM CDT IONIZED CALCIUM, ARTERIAL Routine 09/24/2019 12:06 AM CDT ESTIMATED GFR Routine 09/24/2019 12:06 AM CDT TYPE AND SCREEN Routine 09/24/2019 12:06 AM CDT PHOSPHORUS LEVEL Routine 09/24/2019 12:06 AM CDT MAGNESIUM LEVEL Routine 09/24/2019 12:06 AM CDT ARTERIAL BLOOD GAS Routine 09/24/2019 12:06 AM CDT BASIC METABOLIC PANEL Routine 09/24/2019 12:06 AM CDT CBC WITH PLATELET AND Routine 09/24/2019 DIFFERENTIAL 12:06 AM CDT POC GLUCOSE Routine 09/24/2019 12:05 AM CDT POC GLUCOSE Routine 09/23/2019 7:53 PM CDT POC GLUCOSE Routine 09/23/2019 4:04 PM CDT PHOSPHORUS LEVEL Routine 09/23/2019 12:17 PM CDT IONIZED CALCIUM Routine 09/23/2019 12:17 PM CDT MAGNESIUM LEVEL Routine 09/23/2019 12:17 PM CDT POTASSIUM LEVEL Routine 09/23/2019 12:17 PM CDT POC GLUCOSE Routine 09/23/2019 12:11 PM CDT AFB STAIN Routine 09/23/2019 11:45 AM CDT FUNGUS SMEAR Routine 09/23/2019 11:45 AM CDT GRAM STAIN Routine 09/23/2019 11:45 AM CDT FUNGUS CULTURE Routine 09/23/2019 11:45 AM CDT RESPIRATORY CULTURE Routine 09/23/2019 11:45 AM CDT AFB CULTURE Routine 09/23/2019 11:45 AM CDT RESPIRATORY PATHOGEN Routine 09/23/2019 PANEL 11:45 AM CDT POC GLUCOSE Routine 09/23/2019 7:59 AM CDT POC GLUCOSE Routine 09/23/2019 3:41 AM CDT XR CHEST 1 VW PORTABLE Routine 09/23/2019 1:04 AM CDT MANUAL DIFFERENTIAL Routine 09/23/2019 12:15 AM CDT ESTIMATED GFR Routine 09/23/2019 12:15 AM CDT IONIZED CALCIUM, ARTERIAL Routine 09/23/2019 12:15 AM CDT PHOSPHORUS LEVEL Routine 09/23/2019 12:15 AM CDT MAGNESIUM LEVEL Routine 09/23/2019 12:15 AM CDT ARTERIAL BLOOD GAS Routine 09/23/2019 12:15 AM CDT BASIC METABOLIC PANEL Routine 09/23/2019 12:15 AM CDT CBC WITH PLATELET AND Routine 09/23/2019 DIFFERENTIAL 12:15 AM CDT POC GLUCOSE Routine 09/22/2019 11:32 PM CDT BLOOD CULTURE, AEROBIC & Routine 09/22/2019 ANAEROBIC 9:30 PM CDT BLOOD CULTURE, AEROBIC & Routine 09/22/2019 ANAEROBIC 8:28 PM CDT POC GLUCOSE Routine 09/22/2019 7:55 PM CDT TRANSFUSE RED BLOOD CELLS Routine 09/22/2019 7:28 PM CDT XR CHEST 1 VW PORTABLE STAT 09/22/2019 6:00 PM CDT POC GLUCOSE Routine 09/22/2019 4:02 PM CDT IONIZED CALCIUM Routine 09/22/2019 2:01 PM CDT PHOSPHORUS LEVEL Routine 09/22/2019 2:01 PM CDT MAGNESIUM LEVEL Routine 09/22/2019 2:01 PM CDT POTASSIUM LEVEL Routine 09/22/2019 2:01 PM CDT US INSERT PLEURA CATHETER STAT 09/22/2019 1:25 PM CDT POC GLUCOSE Routine 09/22/2019 1:[address] CHEST WO CONTRAST STAT 09/22/2019 12:25 PM CDT PROTHROMBIN TIME WITH INR Routine 09/22/2019 8:30 AM CDT PARTIAL THROMBOPLASTIN Routine 09/22/2019 TIME (PTT) 8:30 AM CDT POC GLUCOSE Routine 09/22/2019 7:37 AM CDT POC GLUCOSE Routine 09/22/2019 3:46 AM CDT XR CHEST 1 VW PORTABLE Routine 09/22/2019 2:38 AM CDT MAGNESIUM LEVEL Routine 09/22/2019 1:42 AM CDT PHOSPHORUS LEVEL Routine 09/22/2019 1:42 AM CDT ESTIMATED GFR Routine 09/22/2019 1:42 AM CDT BASIC METABOLIC PANEL Routine 09/22/2019 1:42 AM CDT ARTERIAL BLOOD GAS Routine 09/22/2019 1:00 AM CDT CBC HEMOGRAM Routine 09/22/2019 1:00 AM CDT POC GLUCOSE Routine 09/21/2019 11:53 PM CDT POC GLUCOSE Routine 09/21/2019 7:30 PM CDT ESTIMATED GFR Routine 09/21/2019 4:45 PM CDT PHOSPHORUS LEVEL Routine 09/21/2019 4:45 PM CDT MAGNESIUM LEVEL Routine 09/21/2019 4:45 PM CDT BASIC METABOLIC PANEL Routine 09/21/2019 4:45 PM CDT ARTERIAL BLOOD GAS Routine 09/21/2019 4:45 PM CDT POC GLUCOSE Routine 09/21/2019 3:42 PM CDT POC GLUCOSE Routine 09/21/2019 3:39 PM CDT POC GLUCOSE Routine 09/21/2019 11:37 AM CDT ARTERIAL BLOOD GAS Timed 09/21/2019 9:30 AM CDT POC GLUCOSE Routine 09/21/2019 7:33 AM CDT XR CHEST 1 VW PORTABLE Routine 09/21/2019 6:07 AM CDT POC GLUCOSE Routine 09/21/2019 3:57 AM CDT ESTIMATED GFR Routine 09/21/2019 12:15 AM CDT ARTERIAL BLOOD GAS Routine 09/21/2019 12:15 AM CDT MAGNESIUM LEVEL Routine 09/21/2019 12:15 AM CDT BASIC METABOLIC PANEL Routine 09/21/2019 12:15 AM CDT CBC HEMOGRAM Routine 09/21/2019 12:15 AM CDT POC GLUCOSE Routine 09/20/2019 11:53 PM CDT ECG 12-LEAD STAT 09/20/2019 8:53 PM CDT POC GLUCOSE Routine 09/20/2019 7:46 PM CDT XR CHEST 1 VW PORTABLE STAT 09/20/2019 6:35 PM CDT MO AN ELECTIVE Routine 09/20/2019 ENDOTRACHEAL AIRWAY 5:23 PM CDT RESPIRATORY CULTURE Timed 09/20/2019 5:10 PM CDT GRAM STAIN Timed 09/20/2019 5:10 PM CDT FUNGUS SMEAR Timed 09/20/2019 5:10 PM CDT AFB CULTURE Timed 09/20/2019 Esophageal perf oration 5:10 PM CDT NOCARDIA CULTURE Timed 09/20/2019 Esophageal pe rforation 5:10 PM CDT AFB STAIN Timed 09/20/2019 Esophageal perf oration 5:10 PM CDT FUNGUS CULTURE Timed 09/20/2019 Esophageal perf oration 5:10 PM CDT GLUCOSE LEVEL, SYRINGE STAT 09/20/2019 5:05 PM CDT HEMOGLOBIN, SYRINGE STAT 09/20/2019 5:05 PM CDT IONIZED CALCIUM, ARTERIAL STAT 09/20/2019 5:05 PM CDT POTASSIUM, SYRINGE STAT 09/20/2019 5:05 PM CDT SODIUM LEVEL, SYRINGE STAT 09/20/2019 5:05 PM CDT ARTERIAL BLOOD GAS, STAT 09/20/2019 CORRECTED 5:05 PM CDT POC GLUCOSE Routine 09/20/2019 4:05 PM CDT THYROID STIMULATING Routine 09/20/2019 HORMONE 2:18 PM CDT HEPATIC FUNCTION PANEL Routine 09/20/2019 2:18 PM CDT PREPARE RBC Routine 09/20/2019 2:00 PM CDT PREPARE RBC Routine 09/20/2019 2:00 PM CDT TYPE AND SCREEN Routine 09/20/2019 2:00 PM CDT IONIZED CALCIUM STAT 09/20/2019 12:41 PM CDT PHOSPHORUS LEVEL STAT 09/20/2019 12:41 PM CDT MAGNESIUM LEVEL STAT 09/20/2019 12:41 PM CDT POTASSIUM LEVEL STAT 09/20/2019 12:41 PM CDT POC GLUCOSE Routine 09/20/2019 11:52 AM CDT POC GLUCOSE Routine 09/20/2019 7:51 AM CDT XR CHEST 1 VW PORTABLE Routine 09/20/2019 5:36 AM CDT PHOSPHORUS LEVEL Routine 09/20/2019 2:05 AM CDT IONIZED CALCIUM Routine 09/20/2019 2:05 AM CDT ESTIMATED GFR Routine 09/20/2019 2:05 AM CDT HEPATIC FUNCTION PANEL Routine 09/20/2019 2:05 AM CDT MAGNESIUM LEVEL Routine 09/20/2019 2:05 AM CDT BASIC METABOLIC PANEL Routine 09/20/2019 2:05 AM CDT PROTHROMBIN TIME WITH INR Routine 09/20/2019 1:20 AM CDT CBC HEMOGRAM Routine 09/20/2019 1:00 AM CDT COVID-19 QUALITATIVE PCR STAT 09/20/2019 12:35 AM CDT POC GLUCOSE Routine 09/19/2019 11:36 PM CDT POC GLUCOSE Routine 09/19/2019 8:[address] CHEST W CONTRAST STAT 09/19/2019 ABDOMEN W CONTRAST 5:25 PM CDT POC GLUCOSE Routine 09/19/2019 4:11 PM CDT POC GLUCOSE Routine 09/19/2019 12:10 PM CDT POC GLUCOSE Routine 09/19/2019 7:19 AM CDT XR CHEST 1 VW PORTABLE Routine 09/19/2019 3:51 AM CDT POC GLUCOSE Routine 09/19/2019 3:34 AM CDT ESTIMATED GFR Routine 09/19/2019 1:59 AM CDT MAGNESIUM LEVEL Routine 09/19/2019 1:59 AM CDT BASIC METABOLIC PANEL Routine 09/19/2019 1:59 AM CDT CBC HEMOGRAM Routine 09/19/2019 12:40 AM CDT POC GLUCOSE Routine 09/19/2019 12:17 AM CDT POC GLUCOSE Routine 09/19/2019 12:15 AM CDT POC GLUCOSE Routine 09/18/2019 8:31 PM CDT POC GLUCOSE Routine 09/18/2019 3:50 PM CDT POC GLUCOSE Routine 09/18/2019 7:51 AM CDT POC GLUCOSE Routine 09/18/2019 3:57 AM CDT XR CHEST 1 VW PORTABLE Routine 09/18/2019 3:12 AM CDT MANUAL DIFFERENTIAL Routine 09/18/2019 12:05 AM CDT TROPONIN Routine 09/18/2019 12:05 AM CDT ESTIMATED GFR Routine 09/18/2019 12:05 AM CDT TYPE AND SCREEN Routine 09/18/2019 12:05 AM CDT PHOSPHORUS LEVEL Routine 09/18/2019 12:05 AM CDT MAGNESIUM LEVEL Routine 09/18/2019 12:05 AM CDT IONIZED CALCIUM Routine 09/18/2019 12:05 AM CDT CBC WITH PLATELET AND Routine 09/18/2019 DIFFERENTIAL 12:05 AM CDT BASIC METABOLIC PANEL Routine 09/18/2019 12:05 AM CDT POC GLUCOSE Routine 09/17/2019 11:55 PM CDT ECG 12-LEAD STAT 09/17/2019 9:28 PM CDT POC GLUCOSE Routine 09/17/2019 8:02 PM CDT POC GLUCOSE Routine 09/17/2019 4:58 PM CDT POC GLUCOSE Routine 09/17/2019 1:14 PM CDT XR CHEST 1 VW PORTABLE Routine 09/17/2019 9:00 AM CDT POC GLUCOSE Routine 09/17/2019 8:24 AM CDT POC GLUCOSE Routine 09/17/2019 8:22 AM CDT ECG 12-LEAD Routine 09/17/2019 3:38 AM CDT MANUAL DIFFERENTIAL Routine 09/17/2019 1:30 AM CDT TROPONIN Routine 09/17/2019 1:30 AM CDT ESTIMATED GFR Routine 09/17/2019 1:30 AM CDT IONIZED CALCIUM Routine 09/17/2019 1:30 AM CDT PHOSPHORUS LEVEL Routine 09/17/2019 1:30 AM CDT MAGNESIUM LEVEL Routine 09/17/2019 1:30 AM CDT BASIC METABOLIC PANEL Routine 09/17/2019 1:30 AM CDT CBC WITH PLATELET AND Routine 09/17/2019 DIFFERENTIAL 1:30 AM CDT HEPATIC FUNCTION PANEL Routine 09/17/2019 1:30 AM CDT T4, FREE Routine 09/17/2019 1:30 AM CDT THYROID STIMULATING Routine 09/17/2019 HORMONE 1:30 AM CDT TRIGLYCERIDES Routine 09/17/2019 1:30 AM CDT POC GLUCOSE Routine 09/16/2019 8:06 PM CDT TROPONIN Timed 09/16/2019 6:17 PM CDT XR CHEST 1 VW PORTABLE Routine 09/16/2019 3:37 PM CDT POC GLUCOSE Routine 09/16/2019 3:31 PM CDT TTE COMPLETE, W CONTRAST, Routine 09/16/2019 W DOPPLER ([id number]) 1:50 PM CDT POC GLUCOSE Routine 09/16/2019 11:31 AM CDT POC GLUCOSE Routine 09/16/2019 7:37 AM CDT TROPONIN Timed 09/16/2019 6:29 AM CDT POC GLUCOSE Routine 09/16/2019 3:36 AM CDT ECG 12-LEAD Routine 09/16/2019 3:21 AM CDT MANUAL DIFFERENTIAL Routine 09/16/2019 1:00 AM CDT ARTERIAL BLOOD GAS Routine 09/16/2019 1:00 AM CDT ESTIMATED GFR Routine 09/16/2019 1:00 AM CDT IONIZED CALCIUM Routine 09/16/2019 1:00 AM CDT PHOSPHORUS LEVEL Routine 09/16/2019 1:00 AM CDT MAGNESIUM LEVEL Routine 09/16/2019 1:00 AM CDT BASIC METABOLIC PANEL Routine 09/16/2019 1:00 AM CDT CBC WITH PLATELET AND Routine 09/16/2019 DIFFERENTIAL 1:00 AM CDT POC GLUCOSE Routine 09/16/2019 12:57 AM CDT POC GLUCOSE Routine 09/15/2019 8:08 PM CDT XR PICC CHEST PORTABLE Routine 09/15/2019 Septic shock (HCC) 4:07 PM CDT POC GLUCOSE Routine 09/15/2019 3:48 PM CDT HC CATH DUAL LUMEN PICC # Routine 09/15/2019 [id number] 3:26 PM CDT HC CVL PICC INSERT 5 YRS Routine 09/15/2019 OR > W/RS&I AND IMG GUID 3:26 PM CDT MANUAL DIFFERENTIAL Routine 09/15/2019 2:08 PM CDT CBC WITH PLATELET AND Routine 09/15/2019 DIFFERENTIAL 2:08 PM CDT LACTIC ACID LEVEL Routine 09/15/2019 2:08 PM CDT POC GLUCOSE Routine 09/15/2019 12:08 PM CDT POC GLUCOSE Routine 09/15/2019 7:42 AM CDT XR CHEST 1 VW PORTABLE Routine 09/15/2019 4:32 AM CDT POC GLUCOSE Routine 09/15/2019 4:14 AM CDT ECG 12-LEAD Routine 09/15/2019 3:07 AM CDT POC GLUCOSE Routine 09/15/2019 12:11 AM CDT MANUAL DIFFERENTIAL Routine 09/15/2019 12:10 AM CDT ESTIMATED GFR Routine 09/15/2019 12:10 AM CDT IONIZED CALCIUM, ARTERIAL Routine 09/15/2019 12:10 AM CDT LACTIC ACID LEVEL Routine 09/15/2019 12:10 AM CDT PHOSPHORUS LEVEL Routine 09/15/2019 12:10 AM CDT MAGNESIUM LEVEL Routine 09/15/2019 12:10 AM CDT BASIC METABOLIC PANEL Routine 09/15/2019 12:10 AM CDT CBC WITH PLATELET AND Routine 09/15/2019 DIFFERENTIAL 12:10 AM CDT ARTERIAL BLOOD GAS Routine 09/15/2019 12:10 AM CDT POC GLUCOSE Routine 09/14/2019 7:53 PM CDT MICROALBUMIN, URINE, Routine 09/14/2019 RANDOM 6:45 PM CDT CREATININE LEVEL, URINE, Routine 09/14/2019 RANDOM 6:45 PM CDT SODIUM LEVEL, URINE, Routine 09/14/2019 RANDOM 6:45 PM CDT PROTEIN, URINE, RANDOM Routine 09/14/2019 6:45 PM CDT ARTERIAL BLOOD GAS STAT 09/14/2019 6:00 PM CDT POC GLUCOSE Routine 09/14/2019 5:31 PM CDT POC GLUCOSE Routine 09/14/2019 3:40 PM CDT URINE CULTURE Routine 09/14/2019 2:13 PM CDT PROTEIN, URINE, RANDOM Routine 09/14/2019 2:12 PM CDT CREATININE LEVEL, URINE, Routine 09/14/2019 RANDOM 2:12 PM CDT SODIUM LEVEL, URINE, Routine 09/14/2019 RANDOM 2:12 PM CDT URINALYSIS SCREEN AND Routine 09/14/2019 MICROSCOPY, WITH REFLEX 2:12 PM CDT TO CULTURE ESTIMATED GFR STAT 09/14/2019 1:59 PM CDT BASIC METABOLIC PANEL STAT 09/14/2019 1:59 PM CDT ARTERIAL BLOOD GAS STAT 09/14/2019 1:59 PM CDT POC GLUCOSE Routine 09/14/2019 1:54 PM CDT ZINC LEVEL, SERUM Routine 09/14/2019 12:29 PM CDT COPPER LEVEL, SERUM Routine 09/14/2019 12:29 PM CDT VITAMIN B1 LEVEL, WHOLE Routine 09/14/2019 BLOOD 12:29 PM CDT VITAMIN A LEVEL, PLASMA Routine 09/14/2019 OR SERUM 12:29 PM CDT VITAMIN D 25 HYDROXY Routine 09/14/2019 LEVEL 12:29 PM CDT VITAMIN B12 LEVEL Routine 09/14/2019 12:29 PM CDT POC GLUCOSE Routine 09/14/2019 12:02 PM CDT POC GLUCOSE Routine 09/14/2019 10:24 AM CDT MANUAL DIFFERENTIAL STAT 09/14/2019 8:39 AM CDT ARTERIAL BLOOD GAS STAT 09/14/2019 8:39 AM CDT CBC WITH PLATELET AND STAT 09/14/2019 DIFFERENTIAL 8:39 AM CDT LACTIC ACID LEVEL STAT 09/14/2019 8:39 AM CDT POC GLUCOSE Routine 09/14/2019 8:25 AM CDT ECG 12-LEAD Routine 09/14/2019 6:39 AM CDT POC GLUCOSE Routine 09/14/2019 6:33 AM CDT POC GLUCOSE Routine 09/14/2019 6:21 AM CDT MANUAL DIFFERENTIAL Routine 09/14/2019 4:50 AM CDT IONIZED CALCIUM, ARTERIAL Routine 09/14/2019 4:50 AM CDT ARTERIAL BLOOD GAS Routine 09/14/2019 4:50 AM CDT PROTHROMBIN TIME WITH INR Routine 09/14/2019 4:50 AM CDT CBC WITH PLATELET AND Routine 09/14/2019 DIFFERENTIAL 4:50 AM CDT XR CHEST 1 VW PORTABLE Routine 09/14/2019 4:25 AM CDT BLOOD CULTURE, AEROBIC & Routine 09/14/2019 ANAEROBIC 4:20 AM CDT BLOOD CULTURE, AEROBIC & Routine 09/14/2019 ANAEROBIC 4:19 AM CDT POC GLUCOSE Routine 09/14/2019 4:15 AM CDT ESTIMATED GFR Routine 09/14/2019 4:14 AM CDT PARTIAL THROMBOPLASTIN Routine 09/14/2019 TIME (PTT) 4:14 AM CDT PHOSPHORUS LEVEL Routine 09/14/2019 4:14 AM CDT MAGNESIUM LEVEL Routine 09/14/2019 4:14 AM CDT BASIC METABOLIC PANEL Routine 09/14/2019 4:14 AM CDT GLUCOSE LEVEL, SYRINGE STAT 09/14/2019 2:09 AM CDT LACTIC ACID, SYRINGE STAT 09/14/2019 2:09 AM CDT IONIZED CALCIUM, ARTERIAL STAT 09/14/2019 2:09 AM CDT HEMOGLOBIN, SYRINGE STAT 09/14/2019 2:09 AM CDT SODIUM LEVEL, SYRINGE STAT 09/14/2019 2:09 AM CDT POTASSIUM, SYRINGE STAT 09/14/2019 2:09 AM CDT ARTERIAL BLOOD GAS, STAT 09/14/2019 CORRECTED 2:09 AM CDT TISSUE CULTURE Timed 09/14/2019 1:49 AM CDT AFB STAIN Timed 09/14/2019 1:49 AM CDT FUNGUS SMEAR Timed 09/14/2019 1:49 AM CDT GRAM STAIN Timed 09/14/2019 1:49 AM CDT AFB CULTURE Timed 09/14/2019 1:49 AM CDT FUNGUS CULTURE Timed 09/14/2019 1:49 AM CDT ANAEROBIC CULTURE Timed 09/14/2019 1:49 AM CDT LACTIC ACID, SYRINGE STAT 09/14/2019 12:42 AM CDT HEMOGLOBIN, SYRINGE STAT 09/14/2019 12:42 AM CDT GLUCOSE LEVEL, SYRINGE STAT 09/14/2019 12:42 AM CDT IONIZED CALCIUM, ARTERIAL STAT 09/14/2019 12:42 AM CDT POTASSIUM, SYRINGE STAT 09/14/2019 12:42 AM CDT SODIUM LEVEL, SYRINGE STAT 09/14/2019 12:42 AM CDT ARTERIAL BLOOD GAS, STAT 09/14/2019 CORRECTED 12:42 AM CDT LACTIC ACID, SYRINGE STAT 09/13/2019 11:50 PM CDT IONIZED CALCIUM, ARTERIAL STAT 09/13/2019 11:50 PM CDT HEMOGLOBIN, SYRINGE STAT 09/13/2019 11:50 PM CDT SODIUM LEVEL, SYRINGE STAT 09/13/2019 11:50 PM CDT POTASSIUM, SYRINGE STAT 09/13/2019 11:50 PM CDT ARTERIAL BLOOD GAS, STAT 09/13/2019 CORRECTED 11:50 PM CDT LACTIC ACID, SYRINGE STAT 09/13/2019 10:42 PM CDT GLUCOSE LEVEL, SYRINGE STAT 09/13/2019 10:42 PM CDT IONIZED CALCIUM, ARTERIAL STAT 09/13/2019 10:42 PM CDT HEMOGLOBIN, SYRINGE STAT 09/13/2019 10:42 PM CDT POTASSIUM, SYRINGE STAT 09/13/2019 10:42 PM CDT SODIUM LEVEL, SYRINGE STAT 09/13/2019 10:42 PM CDT ARTERIAL BLOOD GAS, STAT 09/13/2019 CORRECTED 10:42 PM CDT ARTERIAL LINE Routine 09/13/2019 10:21 PM CDT MO AN ELECTIVE Routine 09/13/2019 ENDOTRACHEAL AIRWAY 10:11 PM CDT FIBRINOGEN STAT 09/13/2019 9:39 PM CDT PLATELET COUNT STAT 09/13/2019 9:39 PM CDT HEMOGLOBIN & HEMATOCRIT STAT 09/13/2019 9:39 PM CDT PROTHROMBIN TIME WITH INR STAT 09/13/2019 9:39 PM CDT IONIZED CALCIUM, ARTERIAL STAT 09/13/2019 9:39 PM CDT GLUCOSE LEVEL, SYRINGE STAT 09/13/2019 9:39 PM CDT POTASSIUM, SYRINGE STAT 09/13/2019 9:39 PM CDT HEMOGLOBIN, SYRINGE STAT 09/13/2019 9:39 PM CDT SODIUM LEVEL, SYRINGE STAT 09/13/2019 9:39 PM CDT ARTERIAL BLOOD GAS, STAT 09/13/2019 CORRECTED 9:39 PM CDT PREPARE FRESH FROZEN Routine 09/13/2019 PLASMA 9:32 PM CDT PREPARE RBC Routine 09/13/2019 9:32 PM CDT TYPE AND SCREEN Routine 09/13/2019 9:[address] CHEST WO CONTRAST Routine 09/13/2019 5:20 PM CDT LACTIC ACID LEVEL, SEPSIS Timed 09/13/2019 - NOW AND REPEAT 2X EVERY 5:[address] ABDOMEN PELVIS WO STAT 09/13/2019 CONTRAST 5:19 PM CDT URINE CULTURE Routine 09/13/2019 4:57 PM CDT GLUCOSE LEVEL, MISC FLUID STAT 09/13/2019 4:55 PM CDT PROTEIN, MISC FLUID STAT 09/13/2019 4:55 PM CDT PH, MISC FLUID STAT 09/13/2019 4:55 PM CDT LDH, MISC FLUID STAT 09/13/2019 4:55 PM CDT AMYLASE LEVEL, MISC FLUID STAT 09/13/2019 4:55 PM CDT GRAM STAIN STAT 09/13/2019 4:55 PM CDT AEROBIC CULTURE STAT 09/13/2019 4:55 PM CDT URINALYSIS SCREEN AND Routine 09/13/2019 MICROSCOPY, WITH REFLEX 4:39 PM CDT TO CULTURE BLOOD CULTURE, AEROBIC & Routine 09/13/2019 ANAEROBIC 3:24 PM CDT LACTIC ACID LEVEL, SEPSIS Timed 09/13/2019 - NOW AND REPEAT 2X EVERY 3:12 PM CDT 3 HOURS PARTIAL THROMBOPLASTIN STAT 09/13/2019 TIME (PTT) 3:12 PM CDT PROTHROMBIN TIME WITH INR STAT 09/13/2019 3:12 PM CDT D-DIMER STAT 09/13/2019 3:12 PM CDT FIBRINOGEN STAT 09/13/2019 3:12 PM CDT TROPONIN Timed 09/13/2019 3:12 PM CDT TROPONIN Timed 09/13/2019 3:12 PM CDT BLOOD CULTURE, AEROBIC & Routine 09/13/2019 ANAEROBIC 3:12 PM CDT XR CHEST 1 VW PORTABLE STAT 09/13/2019 3:02 PM CDT TRANSFUSE FRESH FROZEN STAT 09/13/2019 PLASMA 1:55 PM CDT TRANSFUSE FRESH FROZEN STAT 09/13/2019 PLASMA 1:28 PM CDT PREPARE FRESH FROZEN STAT 09/13/2019 PLASMA 12:10 PM CDT PREPARE RBC STAT 09/13/2019 12:10 PM CDT TYPE AND SCREEN STAT 09/13/2019 12:[address] CHEST WO CONTRAST STAT 09/13/2019 12:09 PM CDT XR CHEST 1 VW PORTABLE STAT 09/13/2019 11:34 AM CDT OCCULT BLOOD, STOOL STAT 09/13/2019 11:25 AM CDT XR CHEST 1 VW PORTABLE STAT 09/13/2019 10:29 AM CDT MANUAL DIFFERENTIAL STAT 09/13/2019 9:35 AM CDT ESTIMATED GFR STAT 09/13/2019 9:35 AM CDT CREATINE KINASE, TOTAL STAT 09/13/2019 (CPK) 9:35 AM CDT TROPONIN STAT 09/13/2019 9:35 AM CDT B NATRIURETIC PEPTIDE STAT 09/13/2019 9:35 AM CDT LIPASE LEVEL STAT 09/13/2019 9:35 AM CDT MAGNESIUM LEVEL STAT 09/13/2019 9:35 AM CDT HEPATIC FUNCTION PANEL STAT 09/13/2019 9:35 AM CDT BASIC METABOLIC PANEL STAT 09/13/2019 9:35 AM CDT PARTIAL THROMBOPLASTIN STAT 09/13/2019 TIME (PTT) 9:35 AM CDT PROTHROMBIN TIME WITH INR STAT 09/13/2019 9:35 AM CDT CBC WITH PLATELET AND STAT 09/13/2019 DIFFERENTIAL 9:35 AM CDT ECG ED PRELIMINARY Routine 09/13/2019 INTERPRETATION 9:24 AM CDT MO CRITICAL CARE, ADDL 30 Routine 09/13/2019 MIN 9:24 AM CDT MO CRITICAL CARE, E/M Routine 09/13/2019 30-74 MINUTES 9:24 AM CDT MO TUBE THORACOSTOMY Routine 09/13/2019 INCLUDES WATER SEAL 9:24 AM CDT HC CVL NON-TUNNELED Routine 09/13/2019 INSERT 5YRS OR > 9:24 AM CDT MO INSERT NON-TUNNEL CV Routine 09/13/2019 CATH 9:24 AM CDT COVID-19 QUALITATIVE PCR STAT 09/13/2019 9:20 AM CDT POC GLUCOSE Routine 09/13/2019 9:11 AM CDT ECG 12-LEAD STAT 09/13/2019 9:02 AM CDT SURGICAL PATHOLOGY Routine 09/13/2019 REQUEST 8:[address] HEAD WO CONTRAST STAT 08/06/2019 10:51 PM CDT COLONOSCOPY-EXTERNAL Routine 05/28/2019 XR SHOULDER 2+ VW LEFT Routine 04/14/2019 Chronic left shoulder 9:30 AM CONFIGURATOR pain MO ARTHROCENTESIS Routine 04/14/2019 Rotator cuff tendonitis, ASPIR&/INJ MAJOR JT/BURSA 9:15 AM CONFIGURATOR left W/O US POC GLUCOSE Routine 03/29/2019 3:17 PM CONFIGURATOR POC GLUCOSE Routine 03/29/2019 9:11 AM CONFIGURATOR POC GLUCOSE Routine 03/29/2019 5:05 AM CONFIGURATOR POC GLUCOSE Routine 03/29/2019 1:34 AM CONFIGURATOR POC GLUCOSE Routine 03/28/2019 9:26 PM CONFIGURATOR POC GLUCOSE Routine 03/28/2019 5:21 PM CONFIGURATOR POC GLUCOSE Routine 03/28/2019 1:29 PM CONFIGURATOR POC GLUCOSE Routine 03/28/2019 9:33 AM CONFIGURATOR POC GLUCOSE Routine 03/28/2019 5:48 AM CONFIGURATOR ESTIMATED GFR Routine 03/28/2019 5:15 AM CONFIGURATOR PHOSPHORUS LEVEL Routine 03/28/2019 5:15 AM CONFIGURATOR MAGNESIUM LEVEL Routine 03/28/2019 5:15 AM CONFIGURATOR BASIC METABOLIC PANEL Routine 03/28/2019 5:15 AM CONFIGURATOR HC COMPLETE BLD COUNT Routine 03/28/2019 W/AUTO DIFF 5:15 AM CONFIGURATOR POC GLUCOSE Routine 03/28/2019 1:19 AM CONFIGURATOR POC GLUCOSE Routine 03/27/2019 1:10 PM CONFIGURATOR POC GLUCOSE Routine 03/27/2019 9:02 AM CONFIGURATOR POC GLUCOSE Routine 03/27/2019 5:56 AM CONFIGURATOR ESTIMATED GFR Routine 03/27/2019 5:28 AM CONFIGURATOR BASIC METABOLIC PANEL Routine 03/27/2019 5:28 AM CONFIGURATOR HC COMPLETE BLD COUNT Routine 03/27/2019 W/AUTO DIFF 5:28 AM CONFIGURATOR POC GLUCOSE Routine 03/27/2019 2:08 AM CONFIGURATOR POC GLUCOSE Routine 03/26/2019 9:31 PM CONFIGURATOR POC GLUCOSE Routine 03/26/2019 8:54 PM CONFIGURATOR US THORACENTESIS WITH Routine 03/26/2019 IMAGING 6:58 PM CONFIGURATOR XR CHEST 1 VW PORTABLE STAT 03/26/2019 6:17 PM CONFIGURATOR POC GLUCOSE Routine 03/26/2019 5:02 PM CONFIGURATOR PROTHROMBIN TIME WITH INR STAT 03/26/2019 1:35 PM CONFIGURATOR PARTIAL THROMBOPLASTIN STAT 03/26/2019 TIME (PTT) 1:35 PM CONFIGURATOR POC GLUCOSE Routine 03/26/2019 8:59 AM CONFIGURATOR ESTIMATED GFR Routine 03/26/2019 8:55 AM CONFIGURATOR BASIC METABOLIC PANEL Routine 03/26/2019 8:55 AM CONFIGURATOR HC COMPLETE BLD COUNT Routine 03/26/2019 W/AUTO DIFF 8:[address] ABDOMEN PELVIS W STAT 03/26/2019 CONTRAST 7:40 AM CONFIGURATOR POC GLUCOSE Routine 03/26/2019 5:07 AM CONFIGURATOR POC GLUCOSE Routine 03/25/2019 9:08 PM CONFIGURATOR POC GLUCOSE Routine 03/25/2019 1:03 PM CONFIGURATOR POC GLUCOSE Routine 03/25/2019 9:02 AM CONFIGURATOR POC GLUCOSE Routine 03/25/2019 5:06 AM CONFIGURATOR ESTIMATED GFR Routine 03/25/2019 4:55 AM CONFIGURATOR CBC HEMOGRAM Routine 03/25/2019 4:55 AM CONFIGURATOR BASIC METABOLIC PANEL Routine 03/25/2019 4:55 AM CONFIGURATOR POC GLUCOSE Routine 03/25/2019 1:15 AM CONFIGURATOR POC GLUCOSE Routine 03/24/2019 8:42 PM CONFIGURATOR POC GLUCOSE Routine 03/24/2019 9:29 AM CONFIGURATOR POC GLUCOSE Routine 03/24/2019 6:01 AM CONFIGURATOR ESTIMATED GFR Routine 03/24/2019 6:00 AM CONFIGURATOR CBC HEMOGRAM Routine 03/24/2019 6:00 AM CONFIGURATOR BASIC METABOLIC PANEL Routine 03/24/2019 6:00 AM CONFIGURATOR POC GLUCOSE Routine 03/24/2019 1:24 AM CONFIGURATOR POC GLUCOSE Routine 03/23/2019 8:07 PM CONFIGURATOR POC GLUCOSE Routine 03/23/2019 4:47 PM CONFIGURATOR POC GLUCOSE Routine 03/23/2019 12:57 PM CONFIGURATOR POC GLUCOSE Routine 03/23/2019 9:12 AM CONFIGURATOR POC GLUCOSE Routine 03/23/2019 5:31 AM CONFIGURATOR ESTIMATED GFR Routine 03/23/2019 5:10 AM CONFIGURATOR PREALBUMIN LEVEL Routine 03/23/2019 5:10 AM CONFIGURATOR CBC HEMOGRAM Routine 03/23/2019 5:10 AM CONFIGURATOR BASIC METABOLIC PANEL Routine 03/23/2019 5:10 AM CONFIGURATOR POC GLUCOSE Routine 03/22/2019 8:29 PM CONFIGURATOR POC GLUCOSE Routine 03/22/2019 4:56 PM CONFIGURATOR POC GLUCOSE Routine 03/22/2019 1:22 PM CONFIGURATOR POC GLUCOSE Routine 03/22/2019 9:29 AM CONFIGURATOR ESTIMATED GFR Routine 03/22/2019 5:01 AM CONFIGURATOR PHOSPHORUS LEVEL Routine 03/22/2019 5:01 AM CONFIGURATOR MAGNESIUM LEVEL Routine 03/22/2019 5:01 AM CONFIGURATOR BASIC METABOLIC PANEL Routine 03/22/2019 5:01 AM CONFIGURATOR HC COMPLETE BLD COUNT Routine 03/22/2019 W/AUTO DIFF 5:01 AM CONFIGURATOR MANUAL DIFFERENTIAL Routine 03/21/2019 12:33 PM CONFIGURATOR ESTIMATED GFR Routine 03/21/2019 12:33 PM CONFIGURATOR PHOSPHORUS LEVEL Routine 03/21/2019 12:33 PM CONFIGURATOR MAGNESIUM LEVEL Routine 03/21/2019 12:33 PM CONFIGURATOR BASIC METABOLIC PANEL Routine 03/21/2019 12:33 PM CONFIGURATOR CBC WITH PLATELET AND Routine 03/21/2019 DIFFERENTIAL 12:33 PM CONFIGURATOR MANUAL DIFFERENTIAL Routine 03/20/2019 9:38 AM CONFIGURATOR CBC WITH PLATELET AND Routine 03/20/2019 DIFFERENTIAL 9:38 AM CONFIGURATOR ESTIMATED GFR Routine 03/20/2019 7:26 AM CONFIGURATOR PHOSPHORUS LEVEL Routine 03/20/2019 7:26 AM CONFIGURATOR MAGNESIUM LEVEL Routine 03/20/2019 7:26 AM CONFIGURATOR BASIC METABOLIC PANEL Routine 03/20/2019 7:26 AM CONFIGURATOR TTE COMPLETE, WO Routine 03/19/2019 CONTRAST, W DOPPLER 10:17 AM CONFIGURATOR ([id number]) AMYLASE LEVEL Routine 03/19/2019 5:06 AM CONFIGURATOR LIPASE LEVEL Routine 03/19/2019 5:06 AM CONFIGURATOR ESTIMATED GFR Routine 03/19/2019 5:06 AM CONFIGURATOR COMPREHENSIVE METABOLIC Routine 03/19/2019 PANEL 5:06 AM CONFIGURATOR HC COMPLETE BLD COUNT Routine 03/19/2019 W/AUTO DIFF 5:06 AM CONFIGURATOR B NATRIURETIC PEPTIDE Routine 03/18/2019 5:46 PM CONFIGURATOR TROPONIN Routine 03/18/2019 5:46 PM CONFIGURATOR VITAMIN B12 LEVEL Routine 03/18/2019 5:46 PM CONFIGURATOR FOLATE LEVEL Routine 03/18/2019 5:46 PM CONFIGURATOR VITAMIN B1 LEVEL, WHOLE Routine 03/18/2019 BLOOD 5:46 PM CONFIGURATOR THYROID STIMULATING Routine 03/18/2019 HORMONE 5:[address] ABDOMEN PELVIS W STAT 03/18/2019 CONTRAST 10:[address] ANGIOGRAM PE CHEST STAT 03/18/2019 10:19 AM CONFIGURATOR LACTIC ACID LEVEL STAT 03/18/2019 9:26 AM CONFIGURATOR TROPONIN STAT 03/18/2019 9:26 AM CONFIGURATOR ECG 12-LEAD STAT 03/18/2019 9:19 AM CONFIGURATOR ECG 12-LEAD Routine 03/18/2019 4:54 AM CONFIGURATOR MANUAL DIFFERENTIAL Routine 03/18/2019 4:52 AM CONFIGURATOR TROPONIN Routine 03/18/2019 4:52 AM CONFIGURATOR ESTIMATED GFR Routine 03/18/2019 4:52 AM CONFIGURATOR COMPREHENSIVE METABOLIC Routine 03/18/2019 PANEL 4:52 AM CONFIGURATOR CBC WITH PLATELET AND Routine 03/18/2019 DIFFERENTIAL 4:52 AM CONFIGURATOR MANUAL DIFFERENTIAL Routine 03/17/2019 4:50 PM CONFIGURATOR CBC WITH PLATELET AND Routine 03/17/2019 DIFFERENTIAL 4:50 PM CONFIGURATOR XR CHEST 1 VW PORTABLE Routine 03/17/2019 5:47 AM CONFIGURATOR MANUAL DIFFERENTIAL Routine 03/17/2019 4:30 AM CONFIGURATOR ESTIMATED GFR Routine 03/17/2019 4:30 AM CONFIGURATOR PHOSPHORUS LEVEL Routine 03/17/2019 4:30 AM CONFIGURATOR MAGNESIUM LEVEL Routine 03/17/2019 4:30 AM CONFIGURATOR COMPREHENSIVE METABOLIC Routine 03/17/2019 PANEL 4:30 AM CONFIGURATOR CBC WITH PLATELET AND Routine 03/17/2019 DIFFERENTIAL 4:30 AM CONFIGURATOR POC GLUCOSE Routine 03/17/2019 1:15 AM CONFIGURATOR MANUAL DIFFERENTIAL Routine 03/16/2019 3:13 PM CONFIGURATOR ESTIMATED GFR Routine 03/16/2019 3:13 PM CONFIGURATOR BASIC METABOLIC PANEL Routine 03/16/2019 3:13 PM CONFIGURATOR CBC WITH PLATELET AND Routine 03/16/2019 DIFFERENTIAL 3:13 PM CONFIGURATOR MANUAL DIFFERENTIAL Routine 03/16/2019 3:52 AM CONFIGURATOR ESTIMATED GFR Routine 03/16/2019 3:52 AM CONFIGURATOR BASIC METABOLIC PANEL Routine 03/16/2019 3:52 AM CONFIGURATOR CBC WITH PLATELET AND Routine 03/16/2019 DIFFERENTIAL 3:52 AM CONFIGURATOR NICOTINE AND COTININE, Routine 03/16/2019 SERUM 3:52 AM CONFIGURATOR MO AN ELECTIVE Routine 03/15/2019 ENDOTRACHEAL AIRWAY 8:21 PM CONFIGURATOR GRAM STAIN Routine 03/15/2019 4:26 PM CONFIGURATOR URINE CULTURE Routine 03/15/2019 4:26 PM CONFIGURATOR TROPONIN Timed 03/15/2019 4:10 PM CONFIGURATOR BLOOD CULTURE, AEROBIC & Routine 03/15/2019 ANAEROBIC 3:01 PM CONFIGURATOR BLOOD CULTURE, AEROBIC & Routine 03/15/2019 ANAEROBIC 2:58 PM CONFIGURATOR URINALYSIS SCREEN AND Routine 03/15/2019 MICROSCOPY, WITH REFLEX 2:09 PM CONFIGURATOR TO CULTURE TROPONIN Timed 03/15/2019 1:[address] ABDOMEN PELVIS W STAT 03/15/2019 CONTRAST 1:42 PM CONFIGURATOR ECG ED PRELIMINARY Routine 03/15/2019 INTERPRETATION 11:35 AM CONFIGURATOR MO CRITICAL CARE, ADDL 30 Routine 03/15/2019 MIN 11:35 AM CONFIGURATOR MO CRITICAL CARE, E/M Routine 03/15/2019 30-74 MINUTES 11:35 AM CONFIGURATOR BILIRUBIN DIRECT STAT 03/15/2019 10:10 AM CONFIGURATOR ESTIMATED GFR STAT 03/15/2019 10:10 AM CONFIGURATOR MAGNESIUM LEVEL STAT 03/15/2019 10:10 AM CONFIGURATOR LIPASE LEVEL STAT 03/15/2019 10:10 AM CONFIGURATOR B NATRIURETIC PEPTIDE STAT 03/15/2019 10:10 AM CONFIGURATOR TROPONIN STAT 03/15/2019 10:10 AM CONFIGURATOR COMPREHENSIVE METABOLIC STAT 03/15/2019 PANEL 10:10 AM CONFIGURATOR CBC WITH PLATELET AND STAT 03/15/2019 DIFFERENTIAL 10:10 AM CONFIGURATOR ECG 12-LEAD STAT 03/15/2019 10:00 AM CONFIGURATOR after 01/04/2019 Results * POC glucose (12/27/2019 12:04 PM CDT) Only the most recent of 470 results within the time period is included. POC glucose 109 (H) 65 - 99 mg/dL [facility] Comment: [facility] Restaurant Attendant Name: [facility] Device ID: [id number] Chartable: No Action Needed Specimen Blood Performing Organization Address City/State/ZIP Code P kelechi Number [facility] DEPARTMENT OF [address] [place] [address] PATHOLOGY AND GENOMIC MEDICINE [address] * CBC with platelet and differential (12/27/2019 5:00 AM CDT) Only the most recent of 78 results within the time period is included. WBC 9.39 4.50 - 11.00 k/uL [facility] RBC 3.07 (L) 4.20 - 5.50 m/uL [facility] HGB 9.4 (L) 12.0 - 16.0 g/dL [facility] HCT 30.3 (L) 37.0 - 47.0 % [facility] MCV 98.7 82.0 - 100.0 fL [facility] MCH 30.6 27.0 - 34.0 pg [facility] MCHC 31.0 31.0 - 37.0 g/dL [facility] RDW - SD 65.1 (H) 37.0 - 55.0 fL [facility] MPV 8.7 (L) 8.8 - 13.2 fL [facility] Platelet count 360 150 - 400 k/uL [facility] Nucleated RBC 0.00 /100 WBC [facility] Neutrophils 62.8 39.0 - 69.0 % [facility] Lymphocytes 11.0 (L) 25.0 - 45.0 % [facility] Monocytes 7.9 0.0 - 10.0 % [facility] Eosinophils 17.0 (H) 0.0 - 5.0 % [facility] Basophils 0.7 0.0 - 1.0 % [facility] Immature 0.6Comment: "Immature 0.0 - 1.0 % [facility] granulocytes granulocytes" (promyelocytes, METHOD IST myelocytes, metamyelocytes) [facility] Specimen Blood Performing Organization Address City/[facility] P kelechi Number [facility] DEPARTMENT OF [address] [place] [address] PATHOLOGY AND GENOMIC MEDICINE [address] * B natriuretic peptide (12/27/2019 5:00 AM CDT) Only the most recent of 9 results within the time period is included. Pathologist [facility] BNP 432 (H) 0 - 100 pg/mL [facility] Specimen Blood Performing Organization Address City/State/ZIP [place] [address] PATHOLOGY AND GENOMIC MEDICINE [address] * Estimated GFR (12/27/2019 4:00 AM CDT) Only the most recent of 98 results within the time period is included. Pathologist [facility] Estimated GFR >=90 mL/min/1.73 m2 [facility] Comment: [facility] Interpretation G1 >=90 Normal or high G2 60-89 Mildly decreased G3a 45-59 Mildly to moderately decreased G3b 30-44 Moderately to severely decreased G4 15-29 Severely decreased G5 <15 Kidney failure The eGFR was calculated using the Chronic Kidney Disease Epidemiology Collaboration (CKD-EPI) equation. Interpretation is based on recommendations of the National Kidney Foundation-Kidney Disease Outcomes Quality Initiative (NKF-KDOQI) published in 2014. Specimen Performing Organization Address City/State/ZIP [place] [address] PATHOLOGY AND GENOMIC MEDICINE [address] * Magnesium level (12/27/2019 4:00 AM CDT) Only the most recent of 96 results within the time period is included. [facility] Magnesium 2.1 1.6 - 2.4 mg/dL [facility] Specimen Blood Performing Organization Address City/State/ZIP Code P kelechi Number [facility] DEPARTMENT OF [address] [place] [address] PATHOLOGY AND GENOMIC MEDICINE [address] * Basic metabolic panel (12/27/2019 4:00 AM CDT) Only the most recent of 86 results within the time period is included. Pathologist [facility] Sodium 139 135 - 148 mEq/L [facility] Potassium 4.2 3.5 - 5.0 mEq/L [facility] Chloride 98 98 - 112 mEq/L [facility] CO2 26 24 - 31 mEq/L [facility] Anion gap 15@ANIO 7 - 15 mEq/L [facility] BUN 27 (H) 8 - 23 mg/dL [facility] Creatinine 0.54 0.50 - 0.90 mg/dL [facility] Glucose 118 (H) 65 - 99 mg/dL [facility] Calcium 9.5 8.8 - 10.2 mg/dL [facility] Specimen Blood Performing Organization Address [facility]/ZIP [facility] P kelechi Number [facility] DEPARTMENT OF [address] [place] [address] PATHOLOGY AND GENOMIC MEDICINE [address] * ECG 12 lead (12/25/2019 10:16 AM CDT) Only the most recent of 34 results within the time period is included. Ventricular 76 [facility] rate Atrial rate 76 [facility] MO interval 174 [facility] QRSD interval 94 [facility] QT interval 350 [facility] QTC interval 393 [facility] P axis 1 37 [facility] QRS axis 1 3 [facility] T wave axis 48 [facility] EKG impression Normal sinus rhythm-Low [facility] MUSE voltage QRS-Nonspecific T wave abnormality-Abnormal ECG-In automated comparison with ECG of 25-DEC-2019 10:16,-Sinus rhythm has replaced Ectopic atrial rhythm- Specimen Narrative Performed At This result has an attachment that is n ot available. Performing Organization Address City/[facility] P kelechi Number [facility] MUSE [address] [place] [id number] * XR Chest 1 Vw Portable (12/24/2019 8:45 AM CDT) Only the most recent of 86 results within the time period is included. Specimen Narrative Performed At EXAMINATION: XR CHEST 1 VW PORTABLE [facility] CLINICAL HISTORY: shortness of breath COMPARISON: Chest radiograph Septembe r 2019 IMPRESSION: Lines and tubes: Left PICC line termina brandon at the cavoatrial junction. Heart and mediastinum: Cardiomediastina l silhouette is mildly enlarged unchanged in contour. Lungs and pleura: Interstitial opacitie s and vascular congestion are unchanged. There is persistent retrocardiac and ri ght basilar volume loss with small pleural effusions, slightly greater on the right and partially loculated in the right major fissure. No pneumothorax. Bones: No acute abnormality. [facility]-[id number] Dictated and approved by radiology resi dent/fellow: Juanito Camacho M.D. I, Mickey Chin MD, personally reviewed the images and resident's/fellow's findings and agree with the final repor t. Procedure Note Interface, Radiology Results Incoming - 12/24/2019 9:45 AM CDT EXAMINATION: XR CHEST 1 VW PORTABLE CLINICAL HISTORY: shortness of breath COMPARISON: Chest radiograph December 19, 2019 IMPRESSION: Lines and tubes: Left PICC line terminates at the cavoatrial junction. Heart and mediastinum: Cardiomediastinal silhouette is mildly enlarged unchanged in contour. Lungs and pleura: Interstitial opacities and vascular congestion are unchanged. There is persistent retrocardiac and right basilar volume loss with small pleural effusions, slightly greater on the right and partially loculated in the right major fissure. No pneumothorax. Bones: No acute abnormality. [facility]-[id number] Dictated and approved by head resident/fellow: Juanito Camacho M.D. I, Mickey Chin MD, personally reviewed the images and resident's/fellow's findings and agree with the final report. Performing Organization Address City/State/ZIP Code P kelechi Number [facility] [address] [place] [address] * [place] Modified Barium Swallow (12/22/2019 10:31 AM CDT) Only the most recent of 2 results within the time period is included. Specimen Narrative Performed At EXAMINATION: [place] MODIFIED BARIUM SWALLOW [facility] CLINICAL HISTORY: Aspiration known or suspected. Dysphagia, pharyngeal phase. Esophagectomy. COMPARISON: None. Fluoroscopy time: 1.2 minutes. Referenc e air kerma, 3.26 mGy TECHNIQUE: The patient swallowed varying consisten cies of barium under direct lateral fluoroscopic evaluation. The study was performed in conjunction with speech pathology. IMPRESSION: The patient swallowed each consistency without evidence aspiration, with only intermittent penetration with thin angie um. Please see speech pathology report for further details. [id number] Procedure Note Interface, Radiology Results Incoming - 12/22/2019 12:04 PM CDT EXAMINATION: [place] MODIFIED BARIUM SWALLOW CLINICAL HISTORY: Aspiration known or suspected. Dysphagia, pharyngeal phase. Esophagectomy. COMPARISON: None. Fluoroscopy time: 1.2 minutes. Reference air kerma, 3.26 mGy TECHNIQUE: The patient swallowed varying consistencies of barium under direct lateral fluoroscopic evaluation. The study was performed in conjunction with speech pathology. IMPRESSION: The patient swallowed each consistency without evidence aspiration, with only intermittent penetration with thin barium. Please see speech pathology report for further details. [id number] Performing Organization Address [facility] [place] [address] * Protein, total (12/21/2019 8:05 AM CDT) Protein 6.4 6.3 - 8.3 g/dL [facility] Comment: [facility] 4.6-7.0 g/dL 1 week 4.4-7.6 g/dL 7 months-1year 5.1-7.3 g/dL 1-2 years 5.6-7.5 g/dL >3 years 6.0-8.0 g/dL 18-150 6.3-8.3 g/dL Specimen Blood Performing Organization Address [facility] P kelechi Number [facility] [place] [address] PATHOLOGY [address] * Phosphorus level (12/20/2019 5:25 AM CDT) Only the most recent of 71 results within the time period is included. Phosphorus 3.8 2.4 - 4.5 mg/dL [facility] Specimen Blood Performing Organization Address [facility] [place] [address] PATHOLOGY AND [facility] MEDICINE [address] * Prothrombin time with INR (12/19/2019 4:00 PM CDT) Only the most recent of 27 results within the time period is included. Prothrombin 21.9 (H) 11.5 - 14.5 sec [facility] INR 1.9 [facility] Comment: [facility] International Normalized HOSPITAL Ratio (INR) is a therapeutic monitoring tool for patients who are stable on oral anticoagulant therapy. An INR of 2.0-3.0 is suggested for deep vein thrombosis/pulmonary embolism. Specimen Blood Performing Organization Address [facility] P kelechi Number [facility] DEPARTMENT [place] [id number] PATHOLOGY AND GENOMIC MEDICINE [facility] [address] [place] [address] HOSPITAL * XR Chest 1 Vw (12/19/2019 11:56 AM CDT) Specimen Narrative Performed At EXAM: [facility] XR CHEST 1 VW INDICATION: post thora COMPARISON: Chest AP dated 12/19/2019 at 6:35 AM. IMPRESSION: Small right pleural effusion decreasing , compatible with history of interval thoracentesis. Minimal pulmonary vascular congestion d ecreasing. Minimal hazy alveolar and final interst itial opacities throughout both lungs, decreasing, likely decreasing pulmonary edema. Otherwise unchanged without evidence pn eumothorax. Left upper extremity PICC with tip at s uperior cavoatrial junction, adequate location. Surgical clips medial projecting over t he central aspect left lower lung. Rounded masslike opacity right midlung, likely fluid loculated within the fissure. Small left pleural effusion. M inimal consolidative opacities medial bilateral lung bases, with associated 1 loss favoring subsegmental atelectasis over pneumonia. Moderate cardiomegaly. Minimal degenerative changes thoracic s pine. [id number] Procedure Note Hm Interface, Radiology Results Incoming - 12/19/2019 12:46 PM CDT EXAM: XR CHEST 1 VW INDICATION: post thora COMPARISON: Chest AP dated 12/19/2019 at 6:35 AM. IMPRESSION: Small right pleural effusion decreasing, compatible with history of interval thoracentesis. Minimal pulmonary vascular congestion decreasing. Minimal hazy alveolar and final interstitial opacities throughout both lungs, decreasing, likely decreasing pulmonary edema. Otherwise unchanged without evidence pneumothorax. Left upper extremity PICC with tip at superior cavoatrial junction, adequate location. Surgical clips medial projecting over the central aspect left lower lung. Rounded masslike opacity right midlung, likely fluid loculated within the fissure. Small left pleural effusion. Minimal consolidative opacities medial bilateral lung bases, with associated 1 loss favoring subsegmental atelectasis over pneumonia. Moderate cardiomegaly. Minimal degenerative changes thoracic spine. [id number] Performing Organization Address City/State/ZIP Code P kelechi Number [facility] [address] [place] [address] * US Thoracentesis With Imaging (12/19/2019 11:45 AM CDT) Only the most recent of 2 results within the time period is included. Specimen Narrative Performed At PERFORMING RADIOLOGIST: CHRISTINE Yang MD. ASSISTANTS: None. ANESTHESIA TYPE: Lidocaine 1% was used for local anesthe tic. ANTIBIOTICS: None. PRE PROCEDURE DIAGNOSIS: Symptomatic pleural effusion. POST PROCEDURE DIAGNOSIS: Status post thoracentesis. PROCEDURE: Ultrasound-guided right diagnostic and therapeutic thoracentesis. TECHNIQUE: Written informed consent was obtained p rior to the procedure. All elements of maximal sterile barrier technique were followed. The patient was placed in right side up position and ultrasound imaging of the right chest was performed, demonstrating a moderate, complex pleural effusion. A s uitable approach was identified. The patient's chest was then sterilely prep ared and draped in the routine manner. Maximal sterile barrier, hand hygiene, skin preparation technique was followed. Under real-time ultrasound guidance, 10 cc of lidocaine 1% was administered to the overlying soft tissues and pleura w ith a 25-gauge needle. A dermatotomy was made. Then, using real-time ultrasound guidance, a 6 Greek pigtail catheter system was advanced into the pleural space using t he trocar technique, with return of clear, yellow pleural fluid. A total of 250 cc of fluid was removed with vacuum suction. The catheter was removed. Hemostasis wa s achieved with manual compression. Limited postprocedural ultrasound of th e chest following completion of thoracentesis demonstrated moderate isiah unt of heterogeneously hypoechoic material throughout the pleural space p leural fluid. COMPLICATIONS: None. SPECIMENS REMOVED: Approximately 60 cc of fluid were submi tted for laboratory evaluation. ESTIMATED BLOOD LOSS: Less than 2 mL. BLOOD PRODUCTS ADMINISTERED: None. CONTRAST/IMPLANTS: As described in the above report. IMPRESSION: Moderate, complex right pleural effusio n. Successful ultrasound-guided right diagnostic and therapeutic thoracentesi s with removal of 250 mL of clear, yellow pleural fluid. Moderate on of residual heterogeneously hypoechoic material within the pleural space remain despite thoracentesis. [id number] Procedure Note Interface, Radiology Results Incoming - 12/19/2019 12:10 PM CDT PERFORMING RADIOLOGIST: Wisam Yang MD. ASSISTANTS: None. ANESTHESIA TYPE: Lidocaine 1% was used for local anesthetic. ANTIBIOTICS: None. PRE PROCEDURE DIAGNOSIS: Symptomatic pleural effusion. POST PROCEDURE DIAGNOSIS: Status post thoracentesis. PROCEDURE: Ultrasound-guided right diagnostic and therapeutic thoracentesis. TECHNIQUE: Written informed consent was obtained prior to the procedure. All elements of maximal sterile barrier technique were followed. The patient was placed in right side up position and ultrasound imaging of the right chest was performed, demonstrating a moderate, complex pleural effusion. A suitable approach was identified. The patient's chest was then sterilely prepared and draped in the routine manner. Maximal sterile barrier, hand hygiene, skin preparation technique was followed. Under real-time ultrasound guidance, 10 cc of lidocaine 1% was administered to the overlying soft tissues and pleura with a 25-gauge needle. A dermatotomy was made. Then, using real-time ultrasound guidance, a 6 Greek pigtail catheter system was advanced into the pleural space using the trocar technique, with return of clear, yellow pleural fluid. A total of 250 cc of fluid was removed with vacuum suction. The catheter was removed. Hemostasis was achieved with manual compression. Limited postprocedural ultrasound of the chest following completion of thoracentesis demonstrated moderate amount of heterogeneously hypoechoic material throughout the pleural space pleural fluid. COMPLICATIONS: None. SPECIMENS REMOVED: Approximately 60 cc of fluid were submitted for laboratory evaluation. ESTIMATED BLOOD LOSS: Less than 2 mL. BLOOD PRODUCTS ADMINISTERED: None. CONTRAST/IMPLANTS: As described in the above report. IMPRESSION: Moderate, complex right pleural effusion. Successful ultrasound-guided right diagnostic and therapeutic thoracentesis with removal of 250 mL of clear, yellow pleural fluid. Moderate on of residual heterogeneously hypoechoic material within the pleural space remain despite thoracentesis. [id number] Performing Organization Address City/State/[place] [address] * Aerobic culture (12/19/2019 11:18 AM CDT) Only the most recent of 4 results within the time period is included. Aerobic culture No growth after 3 days. [facility] Comment: [facility] Specimen Information HOSPITAL Specimen Source: Thoracentesis fluid Specimen Site: Not otherwise specified Specimen Thoracentesis fluid - Not otherwise specified Performing Organization Address City/State/ZIP Code [place] [address] PATHOLOGY AND GENOMIC MEDICINE [facility] [address] HOSPITAL * Gram stain (12/19/2019 11:18 AM CDT) Only the most recent of 13 results within the time period is included. Gram stain No WBC's or organisms seen. [facility] isolate Comment: [facility] Specimen Information HOSPITAL Specimen Source: Thoracentesis fluid Specimen Site: Not otherwise specified Specimen Thoracentesis fluid - Not otherwise specified Performing Organization Address City/[facility] Code P kelechi Number [facility] [place] [address] PATHOLOGY AND GENOMIC MEDICINE [address] * Anaerobic culture (12/19/2019 11:18 AM CDT) Only the most recent of 6 results within the time period is included. Pathologist [facility] Anaerobic No anaerobic organisms [facility] culture isolate isolated. [facility] Comment: HOSPITAL Specimen Information Specimen Source: Thoracentesis fluid Specimen Site: Not otherwise specified Specimen Thoracentesis fluid - Not otherwise specified Performing Organization Address [facility] P kelechi Number [facility] [address] PATHOLOGY AND GENOMIC MEDICINE [address] * Cell count and differential, body fluid (12/19/2019 11:18 AM CDT) Pathologist [facility] Misc fluid type Thoracentesis [facility] Color, fluid Yellow [facility] Appearance, Hazy [facility] RBC, fluid SEE COMMENTComment: 2+ (500 - /CMM [facility] 10,000 RBC/CMM) [facility] Nucleated 623 /CMM [facility] cells, [facility] Fluid See Diff [facility] mononuclear [facility] Neutrophils, 27 % [facility] Lymphocytes, 69 % [facility] Eosinophils, 3 % [facility] Macrophages, 1 % [facility] Specimen Fluid Performing Organization Address City/[facility] [facility]lechi Number [facility] [place] [address] PATHOLOGY AND GENOMIC MEDICINE [address] * Protein, misc fluid (12/19/2019 11:18 AM CDT) Only the most recent of 2 results within the time period is included. Fluid type Thoracentesis [facility] Protein, fluid 2.9 g/dL [facility] Comment: [facility] The reference interval(s) and HOSPITAL other method performance specifications have not been established for this body fluid. The test results must be integrated into the clinical context for interpretation. This test has been modified from the manufacturers instructions. The performance characteristics were determined by [facility] in a manner consistent with CLIA requirements. This test has not been cleared or approved by the U.S. Food and Drug Administration. Specimen Fluid Performing Organization Address City/[facility] [place] [address] PATHOLOGY AND [facility] MEDICINE [address] * Glucose level, misc fluid (12/19/2019 11:18 AM CDT) Only the most recent of 2 results within the time period is included. Fluid type Thoracentesis [facility] Glucose, fluid 78 mg/dL [facility] Comment: [facility] reference interval(s) and HOSPITAL other method performance specifications have not been established for this body fluid. The test results must be integrated into the clinical context for interpretation. This test has been modified from the manufacturers instructions. The performance characteristics were determined by [facility] in a manner consistent with CLIA requirements. This test has not been cleared or approved by the U.S. Food and Drug Administration. Specimen Fluid Performing Organization Address [facility] [place] [address] PATHOLOGY AND [address] * Total iron binding capacity (12/19/2019 3:55 AM CDT) Only the most recent of 2 results within the time period is included. Iron level 31 (L) 37 - 145 ug/dL [facility] Iron binding 181 (L) 200 - 400 ug/dL [facility] % Saturation 17.1 15.0 - 38.0 % [facility] Specimen Blood Performing Organization Address City/[facility] [place] [address] PATHOLOGY AND [facility] MEDICINE [address] * Transfuse RBC (12/18/2019 8:56 PM CDT) Only the most recent of 14 results within the time period is included. * US Chest (12/18/2019 2:47 PM CDT) Only the most recent of 2 results within the time period is included. Specimen Narrative Performed At EXAMINATION: 66 [facility] CLINICAL HISTORY: 69 years Female Ple ural effusion, new pleural effusion on right COMPARISON: None. IMPRESSION: Right chest: Right-sided pleural effusion measures 6 02ml. There are are small septations Left chest: Left-sided pleural effusion measures 66 ml. There are no septations or loculations Procedure Note Hm Interface, Radiology Results Incoming - 12/18/2019 3:10 PM CDT EXAMINATION: 64 CLINICAL HISTORY: 69 years Female Pleural effusion, new pleural effusion on right COMPARISON: None. IMPRESSION: Right chest: Right-sided pleural effusion measures 602ml. There are are small septations Left chest: Left-sided pleural effusion measures 66ml. There are no septations or loculations Performing Organization Address City/[facility] Code P kelechi Number [facility] [address] [place] [address] * Prepare RBC, 2 Units (12/18/2019 6:00 AM CDT) Only the most recent of 18 results within the time period is included. Product name Red Blood Cells -1, Leukored [place] [facility] Unit number [id number] [facility] Product code [id number] [facility] Dispense status Transfused [facility] Blood [id number] [place] expiration date [facility] Blood type code 6200 [facility] Blood type A POSITIVE [facility] Compatibility Compatible [facility] Specimen Blood Performing Organization Address [facility] P kelechi Number [facility] DEPARTMENT OF [address] [place] [address] PATHOLOGY [place] [address] HOSPITAL * Type and screen (12/18/2019 6:00 AM CDT) Only the most recent of 17 results within the time period is included. ABO grouping A [facility] Rh type POS [facility] Antibody screen NEG [facility] (gel) [facility] Specimen Blood Performing Organization Address [facility] P kelechi Number [facility] DEPARTMENT OF [address] [place] [address] PATHOLOGY [place] [address] HOSPITAL * Smear review (12/18/2019 4:00 AM CDT) Only the most recent of 22 results within the time period is included. Platelet slide Joshua adequate [facility] Anisocytosis Moderate [facility] Polychromasia Moderate [facility] Ovalocytes Moderate [facility] Enlarged Moderate (A) [facility] platelets [facility] Specimen Performing Organization Address [facility] P kelechi Number [facility] [place] [address] PATHOLOGY AND GENOMIC MEDICINE [address] * Hemoglobin & hematocrit (12/15/2019 8:35 AM CDT) Only the most recent of 8 results within the time period is included. Pathologist [facility] HGB 7.4 (L) 12.0 - 16.0 g/dL [facility] HCT 25.1 (L) 37.0 - 47.0 % [facility] Specimen Blood Performing Organization Address [facility] [place] [address] PATHOLOGY AND GENOMIC MEDICINE [address] * Folate level (12/15/2019 4:30 AM CDT) Only the most recent of 2 results within the time period is included. [facility] Folate 17.1 4.8 - 24.2 ng/mL [facility] Specimen Serum Performing Organization Address [facility] [place] [address] PATHOLOGY AND GENOMIC MEDICINE [address] * Comprehensive metabolic panel (12/14/2019 4:25 AM CDT) Only the most recent of 13 results within the time period is included. Pathologist [facility] Sodium 142 135 - 148 mEq/L [facility] Potassium 3.7 3.5 - 5.0 mEq/L [facility] Chloride 102 98 - 112 mEq/L [facility] CO2 32 (H) 24 - 31 mEq/L [facility] Anion gap 8@ANIO 7 - 15 mEq/L [facility] BUN 21 8 - 23 mg/dL [facility] Creatinine 0.47 (L) 0.50 - 0.90 mg/dL [facility] Glucose 115 (H) 65 - 99 mg/dL [facility] Calcium 8.6 (L) 8.8 - 10.2 mg/dL [facility] Protein 5.9 (L) 6.3 - 8.3 g/dL [facility] Comment: [facility] Pioneer 4.6-7.0 g/dL 1 week 4.4-7.6 g/dL 7 months-1year 5.1-7.3 g/dL 1-2 years 5.6-7.5 g/dL >3 years 6.0-8.0 g/dL 18-150 6.3-8.3 g/dL Albumin 2.1 (L) 3.5 - 5.0 g/dL [facility] A/G ratio 0.6 (L) 0.7 - 3.8 [facility] Alkaline 321 (H) 35 - 104 U/L [facility] phosphatase [facility] AST 22 10 - 35 U/L [facility] ALT 21 5 - 50 U/L [facility] Total bilirubin 0.6 0.0 - 1.2 mg/dL [facility] Specimen Blood Performing Organization Address [facility] P kelechi Number [facility] [place] [address] PATHOLOGY AND GENOMIC MEDICINE [address] * Respiratory culture (12/13/2019 11:21 AM CDT) Only the most recent of 3 results within the time period is included. [facility] Respiratory Normal oral sumeet isolated. [facility] culture isolate Comment: [facility] Specimen Source: Bronchial Washing Specimen Site: PEG (Left Upper Lobe) LLL (Left Lower Lobe) Specimen Bronchial washing Performing Organization Address [facility] P kelechi Number [facility] [place] [address] PATHOLOGY AND GENOMIC MEDICINE [address] * Fungus smear (12/13/2019 11:21 AM CDT) Only the most recent of 7 results within the time period is included. Pathologist [facility] Fungus smear No fungi observed. [facility] Comment: [facility] Specimen Source: Bronchial Washing Specimen Site: PEG (Left Upper Lobe) LLL (Left Lower Lobe) Specimen Bronchial washing Performing Organization Address City/[facility] [place] [address] PATHOLOGY AND GENOMIC MEDICINE [address] * AFB stain (12/13/2019 11:21 AM CDT) Only the most recent of 7 results within the time period is included. AFB stain No acid fast bacilli (AFB) [facility] seen. [facility] Comment: [facility]OSPITAL Specimen Information Specimen Source: Bronchial Washing Specimen Site: PEG (Left Upper Lobe) LLL (Left Lower Lobe) Specimen Bronchial washing Performing Organization Address City/State/ZIP Code P kelechi Number [facility] DEPARTMENT OF [address] [place] [address] * Arterial blood gas (12/11/2019 6:30 AM CDT) Only the most recent of 50 results within the time period is included. [facility] pH, arterial 7.47 (H) 7.35 - 7.45 [facility] pCO2, arterial 37 35 - 45 mmHg [facility] Comment: [facility] Specimen received with air HOSPITAL bubble in syringe. Interpret results accordingly. pO2, arterial 184 (H) 80 - 90 mmHg [facility] Bicarbonate, 26.4 21.0 - 28.0 mmol/L [facility] Base excess, 3 (H) -2 - 2 mEq/L [facility] O2 saturation, 100 95 - 100 % [facility] Specimen Blood Performing Organization Address City/[facility] Code P kelechi Number [facility] [place] [address] * Partial thromboplastin time, activated (12/11/2019 3:00 AM CDT) Only the most recent of 53 results within the time period is included. Pathologist [facility] PTT 37.1 (H) 23.0 - 36.0 sec [facility] Comment: [facility] PTT therapeutic range for HOSPITAL unfractionated heparin is 61.0-112.0 seconds which corresponds to Anti-Xa 0.3-0.7 U/ml. Specimen Blood Performing Organization Address City/State/ZIP Code P kelechi Number [facility] DEPARTMENT [address] * Prealbumin level (12/11/2019 3:00 AM CDT) Only the most recent of 5 results within the time period is included. Prealbumin 15 (L) 16 - 32 mg/dL [facility] Specimen Serum Performing Organization Address City/State/ZIP Code P kelechi Number [facility] DEPARTMENT OF [address] [place] [address] PATHOLOGY AND GENOMIC MEDICINE [facility] [address] [place] [address] HOSPITAL * CT Chest Wo Contrast (12/09/2019 10:55 AM CDT) Only the most recent of 5 results within the time period is included. Specimen Narrative Performed At EXAMINATION: CT CHEST WO CONTRAST [facility] CLINICAL HISTORY: 69 years Female rule out post-op hematoma TECHNIQUE: Multiple axial images of t he chest were obtained without intravenous contrast. Sagittal and ebonie nal computerized reformatted images were also obtained. CT imaging was performed with iterative reconstruction techniques and/or automated exposure control to reduce radiation do se. COMPARISON: 10/16/2019 IMPRESSION: Lungs and airways: There are patchy bib asilar atelectatic changes bilaterally. Minimal linear atelectasis is present i n the right upper lobe. Tracheostomy tube is in satisfactory position. A small am ount of debris is noted in the right mainstem bronchus. Pleura: There are small bilateral pleur al effusions. The left-sided chest tube has been removed since the previous [place] dy. Posterior right-sided chest tube has been placed since the previous study. T here is a small amount of loculated fluid in the superior aspect of the right major fiss ure. No evidence of pneumothorax. Mediastinum and lymph nodes: Multiple s mall mediastinal lymph nodes are present likely reactive. Small axillary lymph n odes are also noted. Postoperative changes related to total esophagectomy are present. Surgical drains overlie the thoracic inlet. There is no evidence of hematoma. Cardiovascular: The heart size is sligh tly enlarged. Minimal coronary calcifications. The thoracic aorta is a therosclerotic without evidence of aneurysm. Upper abdomen: Gastrostomy tube is pres ent. Bones: There are fractures of the poste rior right sixth and seventh ribs that have developed since the prior study. T here are postoperative changes related to partial resection of the posterior left seventh rib. A fracture of the posterior eighth rib is noted. Other: Postsurgical soft tissue defects are noted along the posterior left chest wall with associated packing. A small a mount of subcutaneous emphysema along the posterior right chest wall. SUMMARY: 1.Status post total esophagectomy. Surg ical drains and chest tube in place. No evidence of hematoma. 2.Small bilateral pleural effusions wit h bibasilar atelectasis. 3.Posterior right sixth and seventh rib fractures. Postsurgical changes posterior left seventh rib with overlyi ng soft tissue defect. Fracture posterior eighth rib. [facility]-[id number] Procedure Note Hm Interface, Radiology Results Incoming - 12/09/2019 11:34 AM CDT EXAMINATION: CT CHEST WO CONTRAST CLINICAL HISTORY: 69 years Female rule out post-op hematoma TECHNIQUE: Multiple axial images of the chest were obtained without intravenous contrast. Sagittal and coronal computerized reformatted images were also obtained. CT imaging was performed with iterative reconstruction techniques and/or automated exposure control to reduce radiation dose. COMPARISON: 10/16/2019 IMPRESSION: Lungs and airways: There are patchy bibasilar atelectatic changes bilaterally. Minimal linear atelectasis is present in the right upper lobe. Tracheostomy tube is in satisfactory position. A small amount of debris is noted in the right mainstem bronchus. Pleura: There are small bilateral pleural effusions. The left-sided chest tube has been removed since the previous study. Posterior right-sided chest tube has been placed since the previous study. There is a small amount of loculated fluid in the superior aspect of the right major fissure. No evidence of pneumothorax. Mediastinum and lymph nodes: Multiple small mediastinal lymph nodes are present likely reactive. Small axillary lymph nodes are also noted. Postoperative changes related to total esophagectomy are present. Surgical drains overlie the thoracic inlet. There is no evidence of hematoma. Cardiovascular: The heart size is slightly enlarged. Minimal coronary calcifications. The thoracic aorta is atherosclerotic without evidence of aneurysm. Upper abdomen: Gastrostomy tube is present. Bones: There are fractures of the posterior right sixth and seventh ribs that have developed since the prior study. There are postoperative changes related to partial resection of the posterior left seventh rib. A fracture of the posterior eighth rib is noted. Other: Postsurgical soft tissue defects are noted along the posterior left chest wall with associated packing. A small amount of subcutaneous emphysema along the posterior right chest wall. SUMMARY: 1.Status post total esophagectomy. Surgi joe drains and chest tube in place. No evidence of hematoma. 2.Small bilateral pleural effusions with bibasilar atelectasis. 3.Posterior right sixth and seventh rib fractures. Postsurgical changes posterior left seventh rib with overlying soft tissue defect. Fracture posterior eighth rib. [facility]-[id number] Performing Organization Address City/State/ZIP Code P kelechi Number [facility] [address] [place] [address] * CT Soft Tissue Neck Wo Contrast (12/09/2019 10:54 AM CDT) Specimen Narrative Performed At EXAMINATION: CT SOFT TISSUE NECK WO CONTRAST [facility] CLINICAL HISTORY: possible post-op jarocho deborah COMPARISON: None TECHNIQUE: Noncontrast enhanced imaging through the neck was performed from the upper chest through the skull base with coronal and sagittal reconstructed images. CT imaging was performed with iterative reconstruction technique and/or automated exposure control to reduce radiation dose. FINDINGS: There is tubing extending int o the upper esophagus compatible with the recent divergent after esophageal ligat ion in the setting of esophageal perforation. There is an endotracheal t ube. There is another drainage catheter in the left-sided paraesophageal space. There is extensiv e soft tissue thickening, blood products, air involving the left greater than rig ht inferior neck, superior mediastinum, with small effusion on the right and mo derate effusion on the left that is slightly hyperdense suggesting hemorrhagic effusion. There is a rightward deviation of the a irway including the larynx and the subglottic airway however the patient i s intubated with secure airway without evidence of airway compromise. The nasopharynx has small retained flui d. Grossly the oropharynx, oral cavity, hypopharynx, laryngeal structures, bila teral parotid and submandibular glands are maintained, within limitations of a noncontrast study. A right-sided chest tube is seen. There is small right soft tissue emphysema. There is moderate amount of air seen in the left inferior paramedian neck from recent procedure. IMPRESSION: Expected postoperative prater ges described above in the setting of esophageal ligation for management of e sophageal perforation. Diffuse neck soft tissue edema/blood products and scatter ed areas of air, expected in the recent postoperative setting without a discrete encapsulated fluid collection. Findings were discussed with critical c are attending at 12/09/2019 11:12 AM who verbalized understanding. [id number] Procedure Note Interface, Radiology Results Incoming - 12/09/2019 11:21 AM CDT EXAMINATION: CT SOFT TISSUE NECK WO CONTRAST CLINICAL HISTORY: possible post-op hematoma COMPARISON: None TECHNIQUE: Noncontrast enhanced imaging through the neck was performed from the upper chest through the skull base with coronal and sagittal reconstructed images. CT imaging was performed with iterative reconstruction technique and/or automated exposure control to reduce radiation dose. FINDINGS: There is tubing extending into the upper esophagus compatible with the recent divergent after esophageal ligation in the setting of esophageal perforation. There is an endotracheal tube. There is another drainage catheter in the left-sided paraesophageal space. There is extensive soft tissue thickening, blood products, air involving the left greater than right inferior neck, superior mediastinum, with small effusion on the right and moderate effusion on the left that is slightly hyperdense suggesting hemorrhagic effusion. There is a rightward deviation of the airway including the larynx and the subglottic airway however the patient is intubated with secure airway without evidence of airway compromise. The nasopharynx has small retained fluid. Grossly the oropharynx, oral cavity, hypopharynx, laryngeal structures, bilateral parotid and submandibular glands are maintained, within limitations of a noncontrast study. A right-sided chest tube is seen. There is small right soft tissue emphysema. There is moderate amount of air seen in the left inferior paramedian neck from recent procedure. IMPRESSION: Expected postoperative changes described above in the setting of esophageal ligation for management of esophageal perforation. Diffuse neck soft tissue edema/blood products and scattered areas of air, expected in the recent postoperative setting without a discrete encapsulated fluid collection. Findings were discussed with critical care attending at 12/09/2019 11:12 AM who verbalized understanding. [id number] Performing Organization Address City/State/ZIP Code P kelechi Number [facility] [address] [place] [address] * duplex venous lower extremity (12/08/2019 2:45 PM CDT) Only the most recent of 2 results within the time period is included. Specimen Narrative Performed At [facility] Vascular U ltrasound Laboratory Lower Extr emity Venous Report [id number] [facility], [place] [address], [address]Name: JUANCARLOSCESAR.ID: [id number] S t.Date: 12/08/2019 Refer.MD: JIMENEZ CARR MD Exam Time: 2:25:00 PM Study Type:LE Venous Height: 66in Weight: 130lb BSA: 1.67 m2 Age: 9 1950,69Y Sex: FEMALE Sonogrphr: Viki Brown RVT Pat. Stat.:Inpatient Room: [address] Tape Vol: JameelJ, [facility] - 4: [id number] Echo Event ID:[id number] Order ID: [id number] Reason for Study:Evaluation for DVT. Procedures: Colorflow, Grayscale/2D, Pu lsed wave Doppler Race: C SUMMARY: Deep Veins Superficial Veins * Normal Reflux Criteria: < 1 second * Normal Reflux Criteria: < 0.5 seconds * Abnormal Reflux Criteria: > or equa l to 1 second * Abnormal Reflux Criteria: > or equal to 0.5 seconds DUPLEX SCAN OBSERVATIONS Deep Veins Superficial Veins Right Left Right Left EIV GSV (prox) Normal Normal CFV Normal Normal (above knee) Femoral Normal Normal GSV (dist) Normal Normal Profunda Normal Normal (below knee) Popliteal Normal Normal PT (prox) Normal Normal SSV Normal No rmal PT (dist) Normal Normal Peroneal Normal Normal Gastrocs Not Visualized Not Visualized RIGHT: The mid segment of the femoral vein is not visualized due to the presence of a catheter and dressi ng. There is normal compressibility with no evidence of ech ogenic material noted within the lumen of the visualized veins. Schriever rflow and Doppler signals are pulsatile. LEFT: There is normal compressibility w ith no evidence of echogenic material noted within the lumen of the visualized veins. Colorflow and Doppler signals are pulsatile. PRELIMINARY FINDINGS: 1. No evidence of venous thrombosis of visualized veins. 2. Doppler waveforms are pulsatile. PHYSICIAN INTERPRETATION: Venous examination of the both lower ex tremities demonstrated no evidence of venous thrombosis in the vi sualized veins. Normal compressibility and augmentation of all veins visualized. Volume overload. FINDINGS: Signed 12/08/2019 06:47 PM Leonides [place] MD, VI Procedure Note Interface, Radiology Results In - 12/08/2019 6:48 PM CDT Vascular Ultrasound Laboratory Lower Extremity Venous Report [id number] [place] [address] Pat.Name: CESAR SPENCER Pat.ID: [id number] .Date: 12/08/2019 Refer.MD: JIMENEZ CARR MD Exam Time: 2:25:00 PM Study Type:LE Venous Height: 66in Weight: 130lb BSA: 1.67 m2 Age: 9 1950,69Y Sex: FEMALE Sonogrphr: Viki Brown RVT Pat. Stat.:Inpatient Room: [address] Vol: JJ, [facility] - 4: [id number] Echo Event ID:[id number] Order ID: [id number] Reason for Study:Evaluation for DVT. Procedures: Colorflow, Grayscale/2D, Pulsed wave Doppler Race: C SUMMARY: Deep Veins Superficial Veins * Normal Reflux Criteria: < 1 second * Normal Reflux Criteria: < 0.5 seconds * Abnormal Reflux Criteria: > or equal to 1 second * Abnormal Reflux Criteria: > or equal to 0.5 seconds DUPLEX SCAN OBSERVATIONS Deep Veins Superficial Veins Right Left Right Left EIV GSV (prox) Normal Normal CFV Normal Normal (above knee) Femoral Normal Normal GSV (dist) Normal Normal Profunda Normal Normal (below knee) Popliteal Normal Normal PT (prox) Normal Normal SSV Normal Normal PT (dist) Normal Normal Peroneal Normal Normal Gastrocs Not Visualized Not Visualized RIGHT: The mid segment of the femoral vein is not visualized due to the presence of a catheter and dressing. There is normal compressibility with no evidence of echogenic material noted within the lumen of the visualized veins. Colorflow and Doppler signals are pulsatile. LEFT: There is normal compressibility with no evidence of echogenic material noted within the lumen of the visualized veins. Colorflow and Doppler signals are pulsatile. PRELIMINARY FINDINGS: 1. No evidence of venous thrombosis of v isualized veins. 2. Doppler waveforms are pulsatile. PHYSICIAN INTERPRETATION: Venous examination of the both lower extremities demonstrated no evidence of venous thrombosis in the visualized veins. Normal compressibility and augmentation of all veins visualized. Volume overload. FINDINGS: Signed 12/08/2019 06:47 PM Leonides Glasgow MD, RPVI Performing Organization Address City/[facility]/[place]IP [place] [address] * Urine culture (12/08/2019 12:03 AM CDT) Only the most recent of 8 results within the time period is included. Urine culture No growth after 24 hours [facility] isolate Comment: [facility] Specimen Information HOSPITAL Specimen Source: Urine Specimen Site: [place] Specimen Urine - [place] Performing Organization Address City/[facility] [place] [address] PATHOLOGY AND [facility] MED[facility] [place] * Blood culture, aerobic & anaerobic (2019 10:00 PM CDT) Only the most recent of 15 results within the time period is included. Blood culture No growth after 5 days of [facility] isolate incubation. [facility] Comment: HOSPITAL Specimen Information Specimen Source: Blood Specimen Site: Hand, right Specimen Blood - Hand, right Performing Organization Address [facility]/ZIP [facility] P eklechi Number [facility] [place] [address] PATHOLOGY AND GENOMIC MEDICINE [address] * Urinalysis screen and microscopy, with reflex to culture (2019 9:30 PM CDT) Only the most recent of 8 results within the time period is included. Specimen site [place] [facility] Color, UA Straw [facility] Appearance, UA Clear [facility] Specific 1.006 1.001 - 1.035 [facility] gravity, [facility] pH, UA 5.0 5.0 - 8.5 [facility] Protein, UA Negative Negative [facility] Glucose, UA Negative Negative [facility] Ketones, UA Negative Negative [facility] Bilirubin, UA Negative Negative [facility] Blood, UA Moderate (A) Negative [facility] Nitrite, UA Negative Negative [facility] Urobilinogen, <2.0 <2.0 [facility] Leukocyte Small (A) Negative [facility] esterase, [facility] Epithelial <1 /HPF [facility] cells, [facility] WBC, UA 5 (H) 0 - 4 /HPF [facility] RBC, UA 3 0 - 5 /HPF [facility] Bacteria, UA Few None seen [facility] Yeast, UA None seen [facility] Yeast with None seen [facility] Hyaline casts, 1 /LPF [facility] Specimen Urine Performing Organization Address City/[facility] P kelechi Number [facility] [place] [address] PATHOLOGY AND [facility] MEDICINE [address] * Ionized calcium, arterial (2019 9:20 PM CDT) Only the most recent of 36 results within the time period is included. Ionized 1.14 1.11 - 1.32 mmol/L [facility] arterial [facility] Specimen Blood Performing Organization Address City/[facility]/ZIP Code P kelechi Number [facility] [place] [address] PATHOLOGY AND GENOMIC MEDICINE [address] * Lactic acid level (2019 9:20 PM CDT) Only the most recent of 7 results within the time period is included. Lactic acid 1.2 0.5 - 2.2 mmol/L [facility] Specimen Performing Organization Address City/[facility]/ZIP Code P kelechi Number [facility] [place] [address] PATHOLOGY AND GENOMIC MEDICINE [address] * Sodium level, syringe (2019 7:39 PM CDT) Only the most recent of 23 results within the time period is included. Sodium, syringe 134 (L) 135 - 148 mEq/L [facility] Specimen Blood Performing Organization Address City/[facility]/ZIP [facility] P kelechi Number [facility] [place] [address] PATHOLOGY AND GENOMIC MEDICINE [address] * Potassium, syringe (2019 7:39 PM CDT) Only the most recent of 24 results within the time period is included. Potassium, 4.9 3.5 - 5.0 mEq/L [facility] Specimen Blood Performing Organization Address [facility] P kelechi Number [facility] [place] [address] PATHOLOGY AND GENOMIC MEDICINE [address] * Lactic acid, syringe (2019 7:39 PM CDT) Only the most recent of 6 results within the time period is included. Lactic acid, 0.8 0.5 - 2.2 mmol/L [facility] Specimen Blood Performing Organization Address [facility] P kelechi Number [facility] [place] [address] PATHOLOGY AND [facility] MEDICINE [address] * Hemoglobin, syringe (2019 7:39 PM CDT) Only the most recent of 23 results within the time period is included. Hemoglobin, 10.4 (L) 12.0 - 16.0 g/dL [facility] Specimen Blood Performing Organization Address City/[facility]/ZIP [facility] P kelechi Number [facility] [place] [address] PATHOLOGY AND GENOMIC MEDICINE [address] * Glucose level, syringe (2019 7:39 PM CDT) Only the most recent of 21 results within the time period is included. Glucose, 122 (H) 65 - 99 mg/dL [facility] Specimen Blood Performing Organization Address City/[facility]/ZIP Code P kelechi Number [facility] DEPARTMENT OF [address] [place] [address] PATHOLOGY AND [facility] MEDICINE [address] * Arterial blood gas, corrected (2019 7:39 PM CDT) Only the most recent of 18 results within the time period is included. pH, arterial 7.39 7.35 - 7.45 [facility] pCO2, arterial 41 35 - 45 mmHg [facility] pO2, arterial 257 (H) 80 - 90 mmHg [facility] Temperature, 35.7 Degrees C [facility] Celsius [facility] O2 saturation, 100 95 - 100 % [facility] arterial [facility] pH, arterial 7.41 [facility] pCO2, arterial 38 mmHg [facility] pO2, arterial 252 mmHg [facility] Base excess, 0 -2 - 2 mEq/L [facility] Specimen Blood Performing Organization Address City/[facility] P ke[place]chi Number [facility] [place] [address] PATHOLOGY AND [facility] MEDICINE [address] * Fibrinogen (2019 7:39 PM CDT) Only the most recent of 5 results within the time period is included. Fibrinogen 516 (H) 200 - 450 mg/dL [facility] Specimen Blood Performing Organization Address City/[facility]/ZIP Code P kelechi Number [facility] DEPARTMENT OF [address] [place] [address] PATHOLOGY AND [facility]ICINE [address] * Platelet count (2019 7:39 PM CDT) Only the most recent of 4 results within the time period is included. Platelet count 326 150 - 400 k/uL [facility] Specimen Performing Organization Address City/[facility]/ZIP [facility] P kelechi Number [facility] [place] [address] PATHOLOGY AND GENOMIC MEDICINE [address] * Hematocrit (2019 7:39 PM CDT) Only the most recent of 2 results within the time period is included. HCT 31.4 (L) 37.0 - 47.0 % [facility] Specimen Performing Organization Address City/State/ZIP Code P kelechi Number [facility] DEPARTMENT OF [address] [place] [address] PATHOLOGY AND GENOMIC MEDICINE [facility] [address] [place], [place] [id number] [place] [address] * Airway (2019 5:55 PM CDT) Narrative Performed At Marjan Mcguire 2019 5:56 PM Airway Date/Time: 2019 5:46 PM Performed by: Marjan Mcguire Authorized by: Anant Beebe MD Location: OR Urgency: Elective Difficult Airway: No Anesthesiologist: Bruna Serra MD Resident/LIGHT EQUIPMENT OPERATOR/AA: Marjan Mcguire nu Performed by: resident/LIGHT EQUIPMENT OPERATOR/AA Preoxygenated with 100% O2: Yes C-spine Precautions Maintained Througho ut: Yes Mask Ventilation: Not attempted Final Airway Type: Endotracheal airwa y Final Endotracheal Airway: ETT Cuffed: Yes Technique Used: Video laryngoscopy Devices/Methods Used in Placement: Co ok tube exchanger Insertion Site: Oral Blade type: Glidescope Laryngoscope Blade/Videolaryngoscope Bl merrill Size: 3 ETT Size (mm): 8.0 Cuff at minimum occlusion pressure: Yes Measured from: Lips ETT to Lips (cm): 22 Placement Verified by: CO2 detection an d equal breath sounds Laryngoscopic view: Grade I - full vi ew of glottis Rapid Sequence Induction (RSI): No Modified RSI: No Number of Attempts at Approach: 1 JASON switched over to 8.0 SLT (2/2 brons choscopy/EGD needed by surgeon) x1 attempt without complications. * Arterial line (2019 5:52 PM CDT) Narrative Performed At Marjan Mcguire 2019 5:54 PM Arterial line Performed by: Marjan Mcguire Authorized by: Anant Beebe MD Patient Location: OR Start Time: 2019 4:55 PM End Time: 2019 5:20 PM Staff: Anesthesiologist: Anant Beebe M D Resident/LIGHT EQUIPMENT OPERATOR/AA: Marjan Mcguire Other Staff: Serra, Bruna Ga scoyne, MD Performed by: Other staff Pre-procedure: patient identified, IV c hecked, site and side verified, risks and benefits discussed, procedure verified, surgical consent complete, patient position confirmed, m onitors and equipment checked, pre-op evaluation complete and timeout performed prior to procedure MSBT: antiseptic used, all elements of maximal sterile barrier technique followed, hand hygiene performed, cap/g own used by other personnel and solutions labeled Indications: Indications: multiple ABGs and hemody namic monitoring Anesthesia: Anesthesia: General Procedure Details: Arterial Line placement: Placed pos t induction Line placement site: Brachial Line placement side: Left Arterial line gauge: 20 G Number of attempts: 5 or more Ultrasound guidance used: Yes Post-procedure: Post-procedure: Sterile dressing ap plied and line sutured Post procedure circulation, sensation , movement: Unchanged Patient tolerance: Patient tolerate d the procedure well with no immediate complications Notes: Attempt by attending anesthesiologis t x2 to thread wire through current R axillary and also to place new one wi thout success- unable to thread. Attempt by LIGHT EQUIPMENT OPERATOR x1 to L radial, +pulsat ile blood flow but unable to thread. Attempt by 2nd attending anesth esiologist to L axillary x2 with initial difficulty threading wire despi te pulsatile blood flow. Ultrasound used for all attempts. * Cytology (non-gynecological) request (2019 9:11 AM CDT) [facility] DEPARTMENT OF PATHOLOGY AND GENOMIC MEDICINE Cytology See link below for PDF Lab [facility] DEPART [facility] (non-gynecologi Report OF PATHOLOGY joe) report AND GENOMIC MEDICINE Result status This is Final Report for [facility] DEPARTME NT [id number] OF PATHOLOGY AND GENOMIC MEDICINE Specimen Performing Organization Address [facility] P kelechi Number [place] [id number] [place] [address] PATHOLOGY AND GENOMIC MEDICINE * Surgical pathology request (2019 9:00 AM CDT) Only the most recent of 3 results within the time period is included. [facility] DEPARTMENT OF PATHOLOGY AND GENOMIC MEDICINE Surgical See link below for PDF Lab [facility] DEPART [facility] pathology Report OF PATHOLOGY report AND GENOMIC MEDICINE Result status This is Final Report for [facility] DEPARTME NT [id number] OF PATHOLOGY AND GENOMIC MEDICINE Specimen Performing Organization Address [facility] P kelechi Number [place] [address] [place] [address] PATHOLOGY AND GENOMIC MEDICINE * Arterial line (2019 8:36 AM CDT) Narrative Performed At Anna Hale MD 2019 8:37 AM Arterial line Performed by: Anna Hale MD Authorized by: Anant Beebe MD Patient Location: OR Staff: Anesthesiologist: Anant Beebe M D Performed by: Anesthesiologist Pre-procedure: patient identified, IV c hecked, site and side verified, risks and benefits discussed, procedure verified, surgical consent complete, patient position confirmed, m onitors and equipment checked, pre-op evaluation complete and timeout performed prior to procedure MSBT: antiseptic used, all elements of maximal sterile barrier technique followed, hand hygiene performed, cap/g own used by other personnel and solutions labeled Indications: Indications: multiple ABGs and hemody namic monitoring Anesthesia: Anesthesia: General Procedure Details: Arterial Line placement: Placed pos t induction Line placement site: Axillary Line placement side: Right Arterial line gauge: 20 G Number of attempts: 2 Ultrasound guidance used: Yes Post-procedure: Post-procedure: Line sutured Post procedure circulation, sensation , movement: Normal Patient tolerance: Patient tolerate d the procedure well with no immediate complications * Airway (2019 8:35 AM CDT) Narrative Performed At Anna Hale MD 2019 8:38 AM Airway Performed by: Anna Hale MD Authorized by: Anant Beebe MD Location: OR Urgency: Elective Difficult Airway: No Preoxygenated with 100% O2: Yes C-spine Precautions Maintained Througho ut: Yes Mask Ventilation: Easy mask Final Airway Type: Endotracheal airwa y Final Endotracheal Airway: ETT - doub le lumen left Cuffed: Yes Technique Used: Direct laryngoscopy Devices/Methods Used in Placement: In tubating stylet Insertion Site: Oral Blade Type: Nata Laryngoscope Blade/Videolaryngoscope Bl merrill Size: 3 ETT Double Lumen (fr): 39 Cuff at minimum occlusion pressure: Yes Measured from: Lips Placement Verified by: CO2 detection, d irect visualization and fiber optic visualization Laryngoscopic view: Grade IIa - parti al view of glottis Rapid Sequence Induction (RSI): No Modified RSI: No Number of Attempts at Approach: 1 Right Radial attempt unsuccessful, smal l caliber artery. * Prepare fresh frozen plasma (2019 2:30 AM CDT) Only the most recent of 4 results within the time period is included. Pathologist [facility] Product name Thawed Plasma [facility] Unit number [id number] [facility] Product code [id number] [facility] Dispense status Returned to BB not transfused [facility] Blood [id number] [place] expiration date [facility] Blood type code 2800 [facility] Blood type AB NEGATIVE [facility] Compatibility Not required [facility] Product name Thawed Plasma [facility] Unit number [id number] [facility] Product code [id number] [facility] Dispense status Returned to BB not transfused [facility] Blood [id number] [place] expiration [facility] Blood type code 8400 [facility] Blood type AB POSITIVE [facility] Compatibility Not required [facility] Specimen Performing Organization Address [facility] P kelechi Number [facility] [place] [address] PATHOLOGY AND GENOMIC MEDICINE [address] * COVID-19 qualitative PCR (12/06/2019 3:08 PM CDT) Only the most recent of 10 results within the time period is included. [facility] Interpretation Negative results do not [place] preclude 2019-nCoV infection [facility] and should not be used as the HOSPITAL sole basis for treatment or other patient management decisions. Negative results must be combined with clinical observations, patient history, and epidemiological information. COVID-19 Not-Detected Not-Detected [facility] qualitative PCR [facility] result HOSPITAL COVID-19 See link below for PDF Lab [facility] qualitative PCR ReportComment: Case Number: [facility] [id number] HOSPITAL Specimen Nasopharyngeal swab Performing Organization Address City/[facility] P kelechi Number [facility] [place] [address] PATHOLOGY AND GENOMIC MEDICINE [address] * Thyroid stimulating hormone (12/06/2019 2:48 PM CDT) Only the most recent of 7 results within the time period is included. [facility] TSH 22.93 (H) 0.27 - 4.20 uIU/mL [facility] Specimen Blood Performing Organization Address City/State/ZIP Code P kelechi Number [facility] DEPARTMENT OF [address] [place] [address] PATHOLOGY AND GENOMIC MEDICINE [address] * T4, free (12/06/2019 2:48 PM CDT) Only the most recent of 5 results within the time period is included. T4, free 1.2 0.9 - 1.7 ng/dL [facility] Specimen Blood Performing Organization Address City/State/[facility] Code P kelechi Number [facility] DEPARTMENT OF [address] [place] [address] PATHOLOGY AND GENOMIC MEDICINE [address] * IR G Tube Exchange/Replace (11/26/2019 2:04 PM CDT) Specimen Narrative Performed At Performing Radiologist: Temo Alexis MD [facility] Assistants: None Anesthesia Type: Lidocaine 1% was used for local anesthetic. Moderate sedation was administered by the procedure nurse and monitored by the procedure physician for total khic-sg-hqei sedation time of 14 minutes. Pre Procedure Diagnosis: Clogged gastro stomy catheter Post Procedure Diagnosis: Status post g astrostomy catheter exchange Procedure: Gastrostomy catheter exchang e Technique: Written informed consent was obtained prior to the procedure. The patient was placed in a supine position on the procedure table. The upper abdomen and indwelling gastrostomy cath eter were sterilely prepared and draped in the routine manner. Lidocaine 1% was used for local anesthe tic. A stiff 0.035 inch Amplatz wire was advanced through the indwelling gastros idalmis catheter and into the gastric lumen under fluoroscopy. The retention balloo n of the indwelling gastrostomy catheter was then deflated. This catheter was removed ove r the guidewire, and a new, larger 18-Greek RUBEN gastrostomy catheter was then placed over the guidewire. The retention balloon was inflated with 7 m L of sterile water. Contrast injected through this newly placed gastrostomy catheter confirmed appropri ate catheter tip position within the gastric lumen with opacification of rug al folds. The patient tolerated the procedure well Radiation Dose: Ka,r = 94 mGy Complications: None Specimens Removed: None Estimated Blood Loss: Less than 1 mL Blood/Blood Products Administered: None Grafts/Implants: As described in the ab ove report. Impression: Successful exchange of a cl ogged gastrostomy catheter for a new 18-Greek RUBEN gastrostomy catheter, as detailed above. This catheter is ready for use. [facility]-[id number] Procedure Note Interface, Radiology Results Incoming - 11/26/2019 4:57 PM CDT Performing Radiologist: Temo Alexis MD Assistants: None Anesthesia Type: Lidocaine 1% was used for local anesthetic. Moderate sedation was administered by the procedure nurse and monitored by the procedure physician for total afpn-bg-aent sedation time of 14 minutes. Pre Procedure Diagnosis: Clogged gastrostomy catheter Post Procedure Diagnosis: Status post gastrostomy catheter exchange Procedure: Gastrostomy catheter exchange Technique: Written informed consent was obtained prior to the procedure. The patient was placed in a supine position on the procedure table. The upper abdomen and indwelling gastrostomy catheter were sterilely prepared and draped in the routine manner. Lidocaine 1% was used for local anesthetic. A stiff 0.035 inch Amplatz wire was advanced through the indwelling gastrostomy catheter and into the gastric lumen under fluoroscopy. The retention balloon of the indwelling gastrostomy catheter was then deflated. This catheter was removed over the guidewire, and a new, larger 18- Greek RUBEN gastrostomy catheter was then placed over the guidewire. The retention balloon was inflated with 7 mL of sterile water. Contrast injected through this newly placed gastrostomy catheter confirmed appropriate catheter tip position within the gastric lumen with opacification of rugal folds. The patient tolerated the procedure well Radiation Dose: Ka,r = 94 mGy Complications: None Specimens Removed: None Estimated Blood Loss: Less than 1 mL Blood/Blood Products Administered: None Grafts/Implants: As described in the above report. Impression: Successful exchange of a clogged gastrostomy catheter for a new 18- Greek RUBEN gastrostomy catheter, as detailed above. This catheter is ready for use. [facility]-[id number] Performing Organization Address City/State/ZIP Code P kelechi Number [facility] [address] [place] [address] * XR Picc Chest Portable (11/05/2019 2:11 PM CDT) Only the most recent of 2 results within the time period is included. Specimen Narrative Performed At EXAMINATION: XR PICC CHEST PORTABLE [facility] CLINICAL HISTORY: 68 years Female A41 .9 Sepsis unspecified organism, R65.20 Severe sepsis without septic shock, TPN COMPARISON: November 04 IMPRESSION: Cardiomediastinal silhouette is unchang ed. Diffuse airspace disease throughout the lungs, unchanged Age related changes in the osseous stru ctures. A PICC line has been placed in the left upper extremity. It terminates in the superior vena cava. There is no pneumot horax, other support lines unchanged . Procedure Note Hm Interface, Radiology Results Incoming - 11/05/2019 2:18 PM CDT EXAMINATION: XR PICC CHEST PORTABLE CLINICAL HISTORY: 68 years Female A41.9 Sepsis unspecified organism, R65.20 Severe sepsis without septic shock, TPN COMPARISON: November 04 IMPRESSION: Cardiomediastinal silhouette is unchanged. Diffuse airspace disease throughout the lungs, unchanged Age related changes in the osseous structures. A PICC line has been placed in the left upper extremity. It terminates in the superior vena cava. There is no pneumothorax, other support lines unchanged . Performing Organization Address City/State/ZIP Code P kelechi Number [facility] [address] [place] [address] * PICC insertion (11/05/2019 12:48 PM CDT) Narrative Performed At Kelly Gonzalez RN 11/05/2019 12:52 PM PICC insertion Date/Time: 11/05/2019 12:48 PM Performed by: Scarlett Weldon RN Authorized by: Luke Sparks MD Consent: Consent obtained: Verbal and writte n Consent given by: Patient Risks discussed: arterial puncture, i ncorrect placement, nerve damage, bleeding, infection, superficial thromb us and deep vein thrombus Alternatives discussed: Alternative treatment, delayed treatment and no treatment Reserve protocol: Procedure explained and questions ans wered to patient or proxy's satisfaction: yes Relevant documents present and verifi ed: yes Test results available and properly l abeled: yes Imaging studies available: yes Required blood products, implants, de vices, and special equipment available: yes Site/side marked: yes Immediately prior to procedure, a aura franco out was called: yes Patient identity confirmed: Verball y with patient, arm band and hospital-assigned identification number Pre-procedure details: Hand hygiene: Hand hygiene performed prior to insertion Sterile barrier technique: All elemen ts of maximal sterile technique followed Skin preparation: ChloraPrep Skin preparation agent: Skin preparat ion agent completely dried prior to procedure Anesthesia (see MAR for exact dosages): Anesthesia method: Local infiltrati on Local anesthetic: Lidocaine 1% w/o epi Route of administration: Subcutaneo us Line Placement Details: Patient position: Flat Vessel Size (mm): 3.3. Indication: TPN Location: Left basilic Device Type: Non-valved Catheter size: 4 Fr Catheter to vein ratio: 44% Line Characteristics: Catheter Brand: Attivio PowerPICC Prov brandi External Catheter Length (cm): 0 Internal Catheter Length (cm): 40 Total Catheter Length (cm): 40 Catheter Lot Number: [id number] Catheter Expiration Date: 08/21/2020 Procedure Details: Landmarks identified: yes Ultrasound guidance: yes Sterile ultrasound techniques: Steril e gel and sterile probe covers were used Number of attempts: 1 Number of PICC kits used during proce dure: 1 Purpose of procedure: PICC Placemen t Successful PICC Placement: Yes Patency/Placement: Flushes without difficulty, flushed with 10 mL normal saline, x-ray placement verified , positive blood return and injection cap placed PICC placed utlizing ultrasound-guide d Modified Seldinger Technique: Yes Dressing/Securement: Catheter secur ement device and antimicrobial dressing applied Blood Loss Amount: Less than 20 mL Post-Procedure Details: Post-procedure: Dressing applied Tip placement confirmed by chest x-ra y: Yes Patient tolerance of procedure: Silvia erated well, no immediate complications * Albumin level (11/05/2019 7:19 AM CDT) Only the most recent of 2 results within the time period is included. Albumin 2.1 (L) 3.5 - 5.0 g/dL [facility] Specimen Blood Performing Organization Address [facility] [place] [address] PATHOLOGY AND GENOMIC MEDICINE [address] * Ionized calcium (11/05/2019 12:30 AM CDT) Only the most recent of 21 results within the time period is included. pH 7.59 [facility] Ionized calcium 1.08 (L) 1.11 - 1.32 mmol/L [facility] Specimen Blood Performing Organization Address [facility]/ZIP Code P kelechi Number [place] [id number] [place] [address] PATHOLOGY AND GENOMIC MEDICINE [facility] [address] [place] [address] [facility] * Midline Unsuccessful Attempt (11/04/2019 3:38 PM CDT) Narrative Performed At Kelly Gonzalez RN 11/04/2019 3:3 9 PM Midline Unsuccessful Attempt Date/Time: 11/04/2019 3:38 PM Performed by: Scarlett Weldon RN Authorized by: Luke Sparks MD Consent: Consent obtained: Verbal Consent given by: Patient Risks discussed: arterial puncture, i ncorrect placement, nerve damage, bleeding, superficial thrombus, deep ve in thrombus and infection Alternatives discussed: Delayed ronaldo atment, no treatment and alternative treatment Reserve protocol: Procedure explained and questions ans wered to patient or proxy's satisfaction: yes Relevant documents present and verifi ed: yes Test results available and properly l abeled: yes Imaging studies available: yes Required blood products, implants, de vices, and special equipment available: yes Site/side marked: yes Immediately prior to procedure, a aura e out was called: yes Patient identity confirmed: Verball y with patient, arm band and hospital-assigned identification number Pre-procedure details: Hand hygiene: Hand hygiene performed prior to insertion Sterile barrier technique: All elemen ts of maximal sterile technique followed Skin preparation: ChloraPrep Skin preparation agent: Skin preparat ion agent completely dried prior to procedure Anesthesia (see MAR for exact dosages): Anesthesia method: Local infiltrati on Local anesthetic: Lidocaine 1% w/o epi Route of administration: Subcutaneo us Unsuccessful Attempt(s): Successful PICC Placement: Yes Location(s) Attempted: Right brachi al and Right basilic Number of attempts: 1 Problems or complications: Unable t o advance PICC Procedure details: Landmarks identified: yes Ultrasound guidance: yes Sterile ultrasound techniques: Steril e gel and sterile probe covers were used Blood Loss Amount: Less than 20 mL Post-procedure details: Post-procedure: Dressing applied Patient tolerance of procedure: Silvia erated well, no immediate complications Number of PICC kits used during proce dure: 1 * Unsuccessful Attempt - PICC (11/04/2019 3:36 PM CDT) Narrative Performed At Kelly Gonzalez RN 11/04/2019 3:3 8 PM Unsuccessful Attempt - PICC Date/Time: 11/04/2019 3:36 PM Performed by: Scarlett Weldon RN Authorized by: Luke Sparks MD Consent: Consent obtained: Verbal and writte n Consent given by: Patient Risks discussed: arterial puncture, i ncorrect placement, nerve damage, bleeding, infection, superficial thromb us and deep vein thrombus Alternatives discussed: Alternative treatment, delayed treatment and no treatment Reserve protocol: Procedure explained and questions ans wered to patient or proxy's satisfaction: yes Relevant documents present and verifi ed: yes Test results available and properly l abeled: yes Imaging studies available: yes Required blood products, implants, de vices, and special equipment available: yes Site/side marked: yes Immediately prior to procedure, a aura e out was called: yes Patient identity confirmed: Verball y with patient, arm band and hospital-assigned identification number Pre-procedure details: Hand hygiene: Hand hygiene performed prior to insertion Sterile barrier technique: All elemen ts of maximal sterile technique followed Skin preparation: ChloraPrep Skin preparation agent: Skin preparat ion agent completely dried prior to procedure Anesthesia (see MAR for exact dosages): Anesthesia method: Local infiltrati on Local anesthetic: Lidocaine 1% w/o epi Route of administration: Subcutaneo us Unsuccessful Attempt(s): Successful placement: No Location(s) Attempted: Right brachi al and Right basilic Number of attempts: 2 Problems or complications: Unable t o advance PICC Procedure details: Landmarks identified: yes Ultrasound guidance: yes Sterile ultrasound techniques: Steril e gel and sterile probe covers were used Blood Loss Amount: Less than 20 mL Post-procedure details: Post-procedure: Dressing applied Patient tolerance of procedure: Silvia erated well, no immediate complications Number of PICC kits used during proce dure: 1 Comments: Attempted to place picc. Tried rig ht brachial and right basilic vein but picc would not pass past axillary a michel. Then attempted midline placement but was unsuccessful. Patient is right arm only * Hepatic function panel (11/04/2019 12:41 AM CDT) Only the most recent of 9 results within the time period is included. Albumin 2.1 (L) 3.5 - 5.0 g/dL [facility] Total bilirubin 0.9 0.0 - 1.2 mg/dL [facility] Bilirubin 0.5 (H) 0.0 - 0.3 mg/dL [facility] Alkaline 347 (H) 35 - 104 U/L [facility] phosphatase [facility] Protein 6.8 6.3 - 8.3 g/dL [facility] Comment: [facility] 4.6-7.0 g/dL 1 week 4.4-7.6 g/dL 7 months-1year 5.1-7.3 g/dL 1-2 years 5.6-7.5 g/dL >3 years 6.0-8.0 g/dL 18-150 6.3-8.3 g/dL ALT 16 5 - 50 U/L [facility] AST 40 (H) 10 - 35 U/L [facility] Specimen Narrative Performed At [facility] and read back to Ping Elam in [id number] 11/04/2019 07:09 LMID. [facility] DEPARTMENT OF PATHOLOGY AND GENOMIC MEDICINE Performing Organization Address City/[facility] P kelechi Number [facility] DEPARTMENT OF [address] [place] [address] PATHOLOGY AND GENOMIC MEDICINE [address] * Potassium level (11/02/2019 2:55 PM CDT) Only the most recent of 17 results within the time period is included. Potassium 3.6 3.5 - 5.0 mEq/L [facility] Specimen Blood Performing Organization Address City/[facility] P kelechi Number [facility] DEPARTMENT OF [address] [place] [address] PATHOLOGY AND GENOMIC MEDICINE [address] * Airway (11/01/2019 2:55 PM CDT) Narrative Performed At Elijah Jenkins CRNA 11/01/2019 2 :56 PM Airway Date/Time: 11/01/2019 2:26 AM Performed by: Elijah Jenkins CRNA Authorized by: Shira Woods MD Location: OR Urgency: Elective Difficult Airway: No Anesthesiologist: Shira Woods MD Resident/LIGHT EQUIPMENT OPERATOR/AA: Elijah Jenkins CRNA Performed by: resident/LIGHT EQUIPMENT OPERATOR/AA Preoxygenated with 100% O2: Yes C-spine Precautions Maintained Througho ut: Yes Mask Ventilation: Not attempted Final Airway Type: Surgical airway Final Surgical Airway comment: Existi ng tracheostomy Number of Attempts at Approach: 1 * Sodium level (10/27/2019 3:24 PM CDT) Only the most recent of 2 results within the time period is included. Sodium 133 (L) 135 - 148 mEq/L [facility] Specimen Blood Performing Organization Address City/[facility] P kelechi Number [facility] [place] [address] PATHOLOGY [address] * Osmolality, urine (10/26/2019 3:51 PM CDT) Osmolality, 359 50 - 1,400 mOsm/kg [facility] urine [facility] Specimen Urine Performing Organization Address City/[facility] P kelechi Number [facility] [place] [address] PATHOLOGY AND [facility] MEDICINE [address] * Erythropoietin (10/26/2019 2:00 AM CDT) Erythropoietin 467.2 (H) 2.6 - 18.5 mIU/mL [facility] Specimen Serum Performing Organization Address City/[facility] P kelechi Number [facility] [place] [address] PATHOLOGY AND [facility] MEDICINE [address] * Ferritin level (10/26/2019 2:00 AM CDT) Ferritin level 550 (H) 13 - 150 ng/mL [facility] Specimen Blood Performing Organization Address City/[facility] P kelechi Number [facility] [place] [address] PATHOLOGY AND [facility] MEDICINE [address] * Immunoglobulin E (10/25/2019 2:12 AM CDT) IgE 165.4 (H) 0.0 - 100.0 IU/mL [facility] Specimen Serum Performing Organization Address City/[facility] P kelechi Number [facility] [place] [address] PATHOLOGY AND [facility] MEDICINE [address] * Peripheral smear (10/25/2019 2:00 AM CDT) Only the most recent of 2 results within the time period is included. Peripheral Done [facility] smear Comment: [facility] Peripheral smear is located in HOSPITAL Hematology Laboratory, second floor of [facility]. Specimen Performing Organization Address City/State/ZIP Code P kelechi Number [facility] DEPARTMENT OF [address] [place] [address] PATHOLOGY AND [facility] MEDICINE [address] * Sedimentation rate (10/25/2019 2:00 AM CDT) Sedimentation 101 (H) 0 - 20 mm/hr [facility] Specimen Blood Performing Organization Address City/[facility]/ZIP Code P kelechi Number [facility] [place] [address] PATHOLOGY AND [facility] MEDICINE [address] * Cortisol, 60 minutes (10/24/2019 5:08 PM CDT) Cortisol, 60 16 ug/dL [facility] Min Comment: [facility] Normal response to 0.25 mg HOSPITAL 1-24 ACTH (cosyntropin) is a peak cortisol concentration of greater than 14 ug/dL at either 30 minutes or 60 minutes post-stimulation. Specimen Blood Performing Organization Address [facility] P kelechi Number [facility] DEPARTMENT [address] * Adrenocorticotropic hormone (10/24/2019 1:30 PM CDT) Adrenocorticotr 18.2 7.2 - 63.3 pg/mL [facility] opic hormone [facility] Specimen Blood Performing Organization Address City/[facility]/ZIP Code P kelechi Number [facility] DEPARTMENT OF [address] [place] [address] PATHOLOGY AND [facility] MEDICINE [address] * Cortisol level, random (10/24/2019 12:03 PM CDT) Only the most recent of 2 results within the time period is included. Cortisol, 12 ug/dL [facility] random Comment: [facility] Reference Ranges are not HOSPITAL established for non-timed Cortisol levels. Reference Range for Timed Cortisol: 6 - 10 AM 6 - 18 ug/dl 4 - 8 PM 3 - 11 ug/dl Specimen Blood Performing Organization Address [facility] Code P kelechi Number [facility] DEPARTMENT OF [address] [place] [address] PATHOLOGY AND GENOMIC MEDICINE [address] * Thyroperoxidase antibody (10/24/2019 4:00 AM CDT) Thyroperoxidase 1.0 0.0 - 9.0 IU/mL [facility] Specimen Serum Performing Organization Address [facility] P kelechi Number [facility] DEPARTMENT OF [address] [place] [address] PATHOLOGY AND GENOMIC MEDICINE [address] * Us duplex venous upper extremity (10/23/2019 4:10 PM CDT) Only the most recent of 2 results within the time period is included. Specimen Narrative Performed At [facility] Vascular U ltrasound Laboratory Upper Extr emity Venous Report [address] [place] [address] Pat.Name: CESAR SPENCER.ID: [id number] S t.Date: 10/23/2019 Refer.MD: LUKE SPARKS MD Exam Time: 3:51:00 PM Study Type:UE Venous Height: 66in Weight: 132lb BSA: 1.68 m2 Age: 9 1950,68Y Sex: FEMALE Sonogrphr: Jose Maria Bernardo RVT, [facility] Pat. Stat.:Inpatient Room: [address] Vol: , CPT - 4: [address]509 Echo Event ID:[id number] Order ID: [id number] Reason for Study:Right arm swelling. PM H of HTN, HLD, syncope. Procedures: Colorflow, Grayscale/2D, Pu lsed wave Doppler Race: C SUMMARY: DUPLEX SCAN OBSERVATIONS Right Left IJ T-Collar Subclavian Normal Normal Axillary Normal Brachial Normal Basilic Not Visualized Cephalic Normal RIGHT: There is normal compressibility and no evidence of echogenic material noted within the lumen of the visualized veins. Colorflow and Doppler signals are normal. LEFT: There is normal compressibility a nd no evidence of echogenic material noted within the lumen of the subclavian vein. Colorflow and Doppler signals are normal. PRELIMINARY FINDINGS 1. No evidence of venous thrombosis in the visualized veins. PHYSICIAN INTERPRETATION Venous examination of the right upper e xtremity and neck demonstrated no evidence of venous thrombosis. FINDINGS: Signed 10/23/2019 07:24 PM Leonides Glasgow MD, RPVI Procedure Note Interface, Radiology Results In - 10/23/2019 7:25 PM CDT Vascular Ultrasound Laboratory Upper Extremity Venous Report [address] [place] [address] Pat.Name: CESAR SPENCER Pat.ID: [id number] .Date: 10/23/2019 Refer.MD: LUKE SPARKS MD Exam Time: 3:51:00 PM Study Type:UE Venous Height: 66in Weight: 132lb BSA: 1.68 m2 Age: 9 1950,68Y Sex: FEMALE Sonogrphr: Jose Maria Bernardo RVT, [facility] Pat. Stat.:Inpatient Room: [address] Vol: MK, [facility] - 4: [address] Echo Event ID:[id number] Order ID: [id number] Reason for Study:Right arm swelling. PMH of HTN, HLD, syncope. Procedures: Colorflow, Grayscale/2D, Pulsed wave Doppler Race: C SUMMARY: DUPLEX SCAN OBSERVATIONS Right Left IJ T-Collar Subclavian Normal Normal Axillary Normal Brachial Normal Basilic Not Visualized Cephalic Normal RIGHT: There is normal compressibility and no evidence of echogenic material noted within the lumen of the visualized veins. Colorflow and Doppler signals are normal. LEFT: There is normal compressibility and no evidence of echogenic material noted within the lumen of the subclavian vein. Colorflow and Doppler signals are normal. PRELIMINARY FINDINGS 1. No evidence of venous thrombosis in t he visualized veins. PHYSICIAN INTERPRETATION Venous examination of the right upper extremity and neck demonstrated no evidence of venous thrombosis. FINDINGS: Signed 10/23/2019 07:24 PM Leonides Glasgow MD, RPVI Performing Organization Address City/[facility]/ZIP Code P kelechi Number [facility] [address] [place] [address] * Ova & parasites, gross examination (10/22/2019 6:20 PM CDT) Ova & parasites [place] liquid [facility] gross exam Comment: [facility] Specimen Information [facility] Specimen Source: Stool Specimen Site: Nonpreserved Specimen Stool - Nonpreserved Performing Organization Address City/[facility] P kelechi Number [facility] [place] [address] PATHOLOGY AND GENOMIC MEDICINE [address] * Ova & parasites, trichrome stain (10/22/2019 6:20 PM CDT) Ova & parasites No ova or Parasites seen. [facility] trichrome stain Comment: [facility] Specimen Information HOSPITAL Specimen Source: Stool Specimen Site: Nonpreserved Specimen Stool - Nonpreserved Performing Organization Address [facility] P kelechi Number [facility] [place] [address] PATHOLOGY AND GENOMIC MEDICINE [address] * Ova & parasites, concentrated examination (10/22/2019 6:20 PM CDT) Ova & parasites No Ova or Parasites seen. [facility] concentrated Comment: [facility] exam Specimen Information HOSPITAL Specimen Source: Stool Specimen Site: Nonpreserved Specimen Stool - Nonpreserved Performing Organization Address [facility]/ZIP Code P kelechi Number [facility] [place] [address] PATHOLOGY AND GENOMIC MEDICINE [address] * Ova & parasites, direct examination (10/22/2019 6:20 PM CDT) Pathologist [facility] Ova & parasites No Ova or Parasites seen. [facility] direct exam Comment: [facility] Specimen Information HOSPITAL Specimen Source: Stool Specimen Site: Nonpreserved Specimen Stool - Nonpreserved Performing Organization Address City/State/ZIP Code P kelechi Number [facility] [place] [address] PATHOLOGY AND GENOMIC MEDICINE [address] * T3 (10/22/2019 4:26 PM CDT) Pathologist [facility] T3 77 (L) 80 - 200 ng/dL [facility] Specimen Blood Performing Organization Address City/[facility]/ZIP [facility] P kelechi Number [facility] [place] [address] PATHOLOGY [place] [address] HOSPITAL * C difficile toxin (10/21/2019 5:45 PM CDT) Pathologist [facility] Clostridium No Clostridium difficle toxin [facility] difficile toxin present [facility] Comment: HOSPITAL Specimen Information Specimen Source: Stool Specimen Site: Nonpreserved Specimen Stool - Nonpreserved Performing Organization Address City/[facility]/ZIP Code P kelechi Number [facility] [place] [address] PATHOLOGY [place] [address] HOSPITAL * Miscellaneous referral test (10/21/2019 1:24 PM CDT) Pathologist [facility] Misc test name ?5-Oxoproline in urine sample SHOW N ABOVE Misc test see note SHOWN ABOVE result Comment: Amino Acids Quantitative by LC-MS/MS, Urine [facility] test code [id number] Creatinine, Urine 51 mg/dL - - - [...] Interpretation Test developed and characteristics determined by [employer]. See Compliance Statement B: [employer] - - - - - - - - - - - - - - - - - - - - - - - - - - - - - - Alpha-amino butyric acid, Urine <10 umol/g [facility] (Ref Interval: <=25) - - - - - - - - - - - - - - - - - - - - - - - - - - - - - - Alpha-aminoadipic acid, Urine 79 umol/g [facility] (Ref Interval: <=100) - - - - - - - - - - - - - - - - - - - - - - - - - - - - - - Alanine, Urine 677 umol/g [facility] high (Ref Interval: 60-500) - - - - - - - - - - - - - - - - - - - - - - - - - - - - - - Anserine, Urine <25 umol/g [facility] (Ref Interval: <=250) - - - - - - - - - - - - - - - - - - - - - - - - - - - - - - Arginine, Urine 59 umol/g [facility] (Ref Interval: <=100) - - - - - - - - - - - - - - - - - - - - - - - - - - - - - - Argininosuccinic Acid, Urine 12 umol/g [facility] (Ref Interval: <=40) - - - - - - - - - - - - - - - - - - - - - - - - - - - - - - Asparagine, Urine 108 umol/g [facility] (Ref Interval: 25-180) - - - - - - - - - - - - - - - - - - - - - - - - - - - - - - Aspartic Acid, Urine <25 umol/g [facility] (Ref Interval: <=25) - - - - - - - - - - - - - - - - - - - - - - - - - - - - - - Beta-amino isobutyric acid, Urine 27 umol/g [facility] (Ref Interval: <=1200) - - - - - - - - - - - - - - - - - - - - - - - - - - - - - - Beta-alanine Urine <125 umol/g [facility] (Ref Interval: <=125) - - - - - - - - - - - - - - - - - - - - - - - - - - - - - - Citrulline, Urine <5 umol/g [facility] (Ref Interval: <=15) - - - - - - - - - - - - - - - - - - - - - - - - - - - - - - Cystathionine, Urine 138 umol/g [facility] high (Ref Interval: <=60) - - - - - - - - - - - - - - - - - - - - - - - - - - - - - - Cystine, Urine 93 umol/g [facility] (Ref Interval: <=150) - - - - - - - - - - - - - - - - - - - - - - - - - - - - - - Ethanolamine, Urine 1092 umol/g [facility] high (Ref Interval: 100-510) - - - - - - - - - - - - - - - - - - - - - - - - - - - - - - Gamma-amino butyric acid, Urine <25 umol/g [facility] (Ref Interval: <=25) - - - - - - - - - - - - - - - - - - - - - - - - - - - - - - Glutamic Acid, Urine 42 umol/g [facility] (Ref Interval: <=52) - - - - - - - - - - - - - - - - - - - - - - - - - - - - - - Glutamine, Urine 643 umol/g [facility] (Ref Interval: 100-665) - - - - - - - - - - - - - - - - - - - - - - - - - - - - - - Glycine, Urine 921 umol/g [facility] (Ref Interval: [id number]) - - - - - - - - - - - - - - - - - - - - - - - - - - - - - - Histidine, Urine 727 umol/g [facility] (Ref Interval: 80-1130) - - - - - - - - - - - - - - - - - - - - - - - - - - - - - - Homocitrulline, Urine 26 umol/g [facility] (Ref Interval: <=40) - - - - - - - - - - - - - - - - - - - - - - - - - - - - - - Hydroxylysine, Urine 26 umol/g [facility] (Ref Interval: <=30) - - - - - - - - - - - - - - - - - - - - - - - - - - - - - - Hydroxyproline, Urine <10 umol/g [facility] (Ref Interval: <=30) - - - - - - - - - - - - - - - - - - - - - - - - - - - - - - Isoleucine, Urine 30 umol/g BARREL PLATER (Ref Interval: <=45) - - - - - - - - - - - - - - - - - - - - - - - - - - - - - - Leucine, Urine 72 umol/g BARREL PLATER high (Ref Interval: <=45) - - - - - - - - - - - - - - - - - - - - - - - - - - - - - - Lysine, Urine 245 umol/g BARREL PLATER (Ref Interval: <=355) - - - - - - - - - - - - - - - - - - - - - - - - - - - - - - Methionine, Urine 50 umol/g BARREL PLATER high (Ref Interval: <=20) - - - - - - - - - - - - - - - - - - - - - - - - - - - - - - Ornithine, Urine 55 umol/g BARREL PLATER high (Ref Interval: <=30) - - - - - - - - - - - - - - - - - - - - - - - - - - - - - - Phenylalanine, Urine 203 umol/g BARREL PLATER high (Ref Interval: 15-85) - - - - - - - - - - - - - - - - - - - - - - - - - - - - - - Proline, Urine 24 umol/g BARREL PLATER (Ref Interval: <=35) - - - - - - - - - - - - - - - - - - - - - - - - - - - - - - Sarcosine, Urine <25 umol/g BARREL PLATER (Ref Interval: <=25) - - - - - - - - - - - - - - - - - - - - - - - - - - - - - - Serine, Urine 858 umol/g BARREL PLATER high (Ref Interval: 90-470) - - - - - - - - - - - - - - - - - - - - - - - - - - - - - - Taurine, Urine 45 umol/g BARREL PLATER (Ref Interval: <=3200) - - - - - - - - - - - - - - - - - - - - - - - - - - - - - - Threonine, Urine 203 umol/g BARREL PLATER (Ref Interval: 25-250) - - - - - - - - - - - - - - - - - - - - - - - - - - - - - - Tryptophan, Urine 161 umol/g BARREL PLATER high (Ref Interval: 15-95) - - - - - - - - - - - - - - - - - - - - - - - - - - - - - - Tyrosine, Urine 101 umol/g BARREL PLATER (Ref Interval: 15-150) - - - - - - - - - - - - - - - - - - - - - - - - - - - - - - Valine, Urine 95 umol/g BARREL PLATER high (Ref Interval: <=55) Test performed by: [address] [address] [place] [id number] Specimen Performing Organization Address [facility] [place] [address] PATHOLOGY AND GENOMIC MEDICINE SHOWN ABOVE * Beta hydroxybutyrate (10/21/2019 6:54 AM CDT) Beta 0.07 0.02 - 0.27 mmol/L [facility] Specimen Serum Performing Organization Address [facility] [place] [address] PATHOLOGY AND GENOMIC MEDICINE [address] * NM Hepatobiliary (HIDA Scan) (10/19/2019 6:02 PM CDT) Specimen Narrative Performed At PROCEDURE: NM HEPATOBILIARY (HIDA SCAN) [facility] INDICATION: RUQ pain fever elev WBC Powell's sign COMPARISON: Hepatic ultrasound 10/19/19 20 TECHNIQUE: The patient was injected wit h 5 mCi of [id number] followed by dynamic imaging of the abdomen for 60 m inutes. FINDINGS: There is physiological hepati c uptake and biliary excretion of radiotracer into the small bowel follow ed by normal gallbladder filling. IMPRESSION: No scintigraphic evidence of acute chol ecystitis or common bile duct obstruction. [facility]-[id number] Procedure Note Hm Interface, Radiology Results Incoming - 10/19/2019 6:15 PM CDT PROCEDURE: NM HEPATOBILIARY (HIDA SCAN) INDICATION: RUQ pain fever elev WBC Powell's sign COMPARISON: Hepatic ultrasound 10/19/2019 TECHNIQUE: The patient was injected with 5 mCi of [id number] followed by dynamic imaging of the abdomen for 60 minutes. FINDINGS: There is physiological hepatic uptake and biliary excretion of radiotracer into the small bowel followed by normal gallbladder filling. IMPRESSION: No scintigraphic evidence of acute cholecystitis or common bile duct obstruction. [facility]-[id number] Performing Organization Address City/State/ZIP Code P kelechi Number [facility] [address] [place] [address] * Central Line Insertion (10/19/2019 3:28 PM CDT) Narrative Performed At Chip Lundberg MD 10/19/2019 6:28 PM Central Line Insertion Performed by: Priyank Lackey MD Authorized by: Luke Sparks MD Consent: Consent obtained: Verbal Consent given by: Healthcare agent (daughter by phone) Risks discussed: Arterial puncture, incorrect placement, nerve damage, pneumothorax, infection and bleeding Alternatives discussed: Delayed ronaldo atment Reserve protocol: Procedure explained and questions ans wered to patient or proxy's satisfaction: yes Relevant documents present and verifi ed: yes Test results available and properly l abeled: yes Imaging studies available: yes Required blood products, implants, de vices, and special equipment available: yes Site/side marked: yes Immediately prior to procedure, williams franco out was called: yes Patient identity confirmed: Yuniel velez and hospital-assigned identification number Pre-procedure details: Hand hygiene: Hand hygiene performed prior to insertion Sterile barrier technique: All elemen ts of maximal sterile technique followed Skin preparation: 2% chlorhexidine Skin preparation agent: Skin preparat ion agent completely dried prior to procedure Sedation: Sedation Type: Systemic and Anxioly sis Anxiolysis used:: Ativan Systemic used:: Propofol Anesthesia (see MAR for exact dosages): Anesthesia method: Local infiltrati on Local anesthetic: Lidocaine 1% w/o epi Procedure details: Catheter type: Triple lumen (Antibi otic coated COOK catheter) Catheter size: 7 Fr Catheter length (cm): 15 Catheter site: internal jugular vein Catheter Site Laterality: Right Patient position: Reverse Trendelen krys Landmarks identified: yes Ultrasound guidance: yes Ultrasound guidance: images not saved electronically Sterile ultrasound techniques: Steril e gel and sterile probe covers were used Number of attempts: 1 Successful placement: yes Post-procedure details: Post-procedure: Dressing applied an d line sutured Assessment: Blood return through al l ports and free fluid flow Patient tolerance of procedure: Silvia erated well, no immediate complications Comments: CXR ordered, pending. I was present at bedside for the proced ure All wires out. cxr - postion confirmed, no complicatio n Dr Lundberg * US Hepatic (10/19/2019 10:35 AM CDT) Only the most recent of 2 results within the time period is included. Specimen Narrative Performed At EXAMINATION: US HEPATIC [facility] CLINICAL HISTORY: Evaluate cholecysti tis COMPARISON: CT chest, abdomen and pel vis 10/16/2019 FINDINGS: There is nonshadowing layering sludge i n the gallbladder. No definite shadowing gallstone is visualized. The gallbladde r wall thickness is borderline at 3 mm. The sonographic Powell sign is positive . The common duct is upper limit of zachariah l diameter at 6.5 mm (7 mm is acceptable for the patient's age). The main portal vein is 8 mm diameter a nd patent with normal flow direction. The liver is mildly heterogeneous. No m ass or intrahepatic biliary dilation is seen. Mild perihepatic ascites and a right pl eural effusion are redemonstrated. IMPRESSION: Sonographic findings suspicious for acu te cholecystitis. [id number] Procedure Note Hm Interface, Radiology Results Incoming - 10/19/2019 11:01 AM CDT EXAMINATION: US HEPATIC CLINICAL HISTORY: Evaluate cholecystitis COMPARISON: CT chest, abdomen and pelvis 10/16/2019 FINDINGS: There is nonshadowing layering sludge in the gallbladder. No definite shadowing gallstone is visualized. The gallbladder wall thickness is borderline at 3 mm. The sonographic Powell sign is positive. The common duct is upper limit of normal diameter at 6.5 mm (7 mm is acceptable for the patient's age). The main portal vein is 8 mm diameter and patent with normal flow direction. The liver is mildly heterogeneous. No mass or intrahepatic biliary dilation is seen. Mild perihepatic ascites and a right pleural effusion are redemonstrated. IMPRESSION: Sonographic findings suspicious for acute cholecystitis. [id number] Performing Organization Address City/[facility]/[place] [address] * Sputum culture (10/17/2019 8:29 PM CDT) Only the most recent of 2 results within the time period is included. [facility] Sputum culture No growth after 2 days. [facility] isolate Comment: [facility] Specimen Information HOSPITAL Specimen Source: Tracheal aspirate Specimen Site: Induced Specimen Tracheal aspirate - Induced Performing Organization Address City/State/ZIP Code P kelcehi Number [facility] DEPARTMENT OF [address] [place] [address] PATHOLOGY AND [facility] MEDICINE [address] * Blood smear consult (10/17/2019 1:53 PM CDT) [facility] Blood smear Done [facility] consult Comment: [facility] Neutrophilic leukocytosis with HOSPITAL absolute eosinophilia and absolute monocytosis with few immature monocytic cells and rare blast (1%). If monocytosis persists, consider hematology evaluation if clinically indicated. Reviewed by Vero Ronquillo M.D. Specimen Performing Organization Address City/[facility] P kelechi Number [facility] DEPARTMENT OF [address] [place] [address] PATHOLOGY AND GENOMIC MEDICINE [address] * Manual differential (10/17/2019 1:53 PM CDT) Only the most recent of 18 results within the time period is included. [facility] Manual PERFORMED [facility] differential [facility] Neutrophils 71.0 (H)Comment: Corrected 39.0 - 69.0 % [facility] result; previously reported as [facility] 73.5 on 10/17/2019 at 15:46 by HOSPITAL JP[facility] Lymphocytes 6.0 (L)Comment: Corrected 25.0 - 45.0 % [facility] result; previously reported as [facility] 6.6 on 10/17/2019 at 15:46 by [place] [id number] Monocytes 7.0Comment: Corrected result; 0.0 - 10.0 % [facility] previously reported as 7.3 on [facility] 10/17/2019 at 15:[address] Eosinophils 11.0 (H)Comment: Corrected 0.0 - 5.0 % [facility] result; previously reported as [facility] 11.3 on 10/17/2019 at 15:46 by [place] [id number] Basophils 0.0Comment: Corrected result; 0.0 - 1.0 % [facility] previously reported as 0.3 on [facility] 10/17/2019 at 15:[address] Myelocytes 3 % [facility] Promyelocytes 1 % [facility] Blasts 1 (HH) % [facility] Comment: [facility] Blast and manual differential HOSPITAL results called to and read back by Cesar Henderson/LARRY at 10/19/2019 10:41 by [email or web address]. Platelet slide Increased (A) [facility] review [facility] Toxic Slight [facility] granulation [facility] Neutrophils, Slight [facility] vacuolated [facility] Anisocytosis Moderate [facility] Polychromasia Moderate [facility] Spherocytes Occasional [facility] Enlarged Moderate (A) [facility] platelets [facility] Giant platelets Occasional [facility] Specimen Performing Organization Address City/State/ZIP Code P kelechi Number [facility] DEPARTMENT OF [address] [place] [address] PATHOLOGY [place] [address] HOSPITAL * Wound vac placement (10/17/2019 11:44 AM CDT) Narrative Performed At Dinh Lee 09/22 11:56 AM Wound vac placement Date/Time: 10/17/2019 11:48 AM Performed by: Dinh Lee Authorized by: Luke Sparks MD Associated Wounds: Negative Pressure Wound Therapy 0 Left;Lateral;Upper Back Consent: Consent obtained: Verbal Consent given by: Patient Risks discussed: Bleeding, infectio n and pain Pre-procedure details: Indication: Other (Subcutaneous flu id collection of Left chest and back) Sedation: Sedation type: Systemic Systemic used:: Propofol Wound Description: Wound type: Surgical Wound location: Trunk Trunk: Chest (Left chest and back) Wound age (months, weeks, days): 10 days Eschar tissue present in wound: No Wound Measurements: Length (cm): 16 Width (cm): 4 Area (cm3) formula based on LxW: 64 Wound measurement date: 10/17/2019 Appearance of Wound/Wound Description: Wound full thickness: Yes Wound exposed tissue: Muscle Undermining: No Tunneling/Sinus: No Drainage: Purulent Drainage amount: Moderate Type of foam: Wound vac sponges: 2x white, 1x black Size of foam: 13x4cm Malodorous?: No Wound Vac Settings: Pressure: 50 Status: Continuous Post-procedure: Patient tolerance: Patient tolerated the procedure well with no immediate complications * Creatine kinase, total (CPK) (10/17/2019 3:37 AM CDT) Only the most recent of 4 results within the time period is included. Creatine kinase 15 (L) 26 - 192 U/L [facility] Specimen Narrative Performed At [facility] DEPARTMENT OF ___K___ results called to and read back by SHIRA HUDDLESTON /[id number]_(name/location) PATHOLOGY AND at 10/17/2019 04:13 (date/time) by IVONNE_. [employer] Performing Organization Address City/State/ZIP [place] [address] PATHOLOGY AND GENOMIC MEDICINE [address] * Bilirubin direct (10/17/2019 3:37 AM CDT) Only the most recent of 3 results within the time period is included. Bilirubin 0.4 (H) 0.0 - 0.3 mg/dL [facility] Specimen Narrative Performed At [facility] DEPARTMENT OF ___K___ results called to and read back by SHIRA HUDDLESTON /[email or web address]_(name/location) PATHOLOGY AND at 10/17/2019 04:13 (date/time) by IVONNE_. [employer] MEDICINE Performing Organization Address City/State/ZIP [place] [address] PATHOLOGY AND GENOMIC MEDICINE [place] [facility] [address] [place] [address] * CBC hemogram (10/17/2019 3:20 AM CDT) Only the most recent of 22 results within the time period is included. WBC 21.24 (H) 4.50 - 11.00 k/uL [facility] RBC 2.27 (L) 4.20 - 5.50 m/uL [facility] HGB 6.4 (LL) 12.0 - 16.0 g/dL [facility] Comment: [facility] Results called to and read HOSPITAL back by BENNY/ROBERTO (name/location) at 10/17/2019 03:43 (date/time) by 465. HCT 21.1 (L) 37.0 - 47.0 % [facility] MCV 93.0 82.0 - 100.0 fL [facility] MCH 28.2 27.0 - 34.0 pg [facility] MCHC 30.3 (L) 31.0 - 37.0 g/dL [facility] RDW - SD 59.7 (H) 37.0 - 55.0 fL [facility] MPV 9.7 8.8 - 13.2 fL [facility] Platelet count 438 (H) 150 - 400 k/uL [facility] Nucleated RBC 0.00 /100 WBC [facility] Specimen Narrative Performed At recollect [facility] DEPARTMENT OF PATHOLOGY AND GENOMIC MEDICINE Performing Organization Address City/State/ZIP Code P kelechi Number [facility] DEPARTMENT OF [address] [place] [address] PATHOLOGY AND GENOMIC MEDICINE [address] * CT Head Wo Contrast (10/16/2019 5:50 PM CDT) Only the most recent of 2 results within the time period is included. Specimen Narrative Performed At Exam : Head CT without contrast [facility] History: Evaluate sinusitis Comparison studies: None. Technique: Axial scans were obtained from skull ba se to the vertex. Coronal and sagittal reconstructions ob tained from the axial data. CT imaging was performed with iterative reconstruction technique and/or automated exposure control to reduce ra diation dose. IV Contrast: None Complications: None FINDINGS: Beam hardening artifact limits the eval uation Scalp/Skull: No abnormalities. Brain sulci: Appropriate for patient's age. Ventricles: Normal in size and configur ation.No hydrocephalus. Extra-axial spaces: No masses or fluid collections. Dystrop hic calcification at the right paracentral parietal convexity. Parenchyma: Few hypodensities of the periventricula r and deep white matter, nonspecific and most commonly seen with mild chronic mi crovascular ischemic changes.. No masses, hemorrhage or acute or chron ic cortical insults Dural sinuses: No abnormal densities. Sellar/Suprasellar region: Intact. Skull base and Craniocervical junction: Intact . Incidental findings: There are sclerotic calcifications of t he carotid siphons. Nonspecific mucosal thickening of the l eft maxillary and left sphenoid sinuses. Remaining sinuses are clear. IMPRESSION: 1. No acute intracranial abnormalities. 2. Nonspecific inflammatory changes of the left maxillary and sphenoid sinuses. Procedure Note Interface, Radiology Results - 10/16/2019 6:10 PM CDT Exam : Head CT without contrast History: Evaluate sinusitis Comparison studies: None. Technique: Axial scans were obtained from skull base to the vertex. Coronal and sagittal reconstructions obtained from the axial data. CT imaging was performed with iterative reconstruction technique and/or automated exposure control to reduce radiation dose. IV Contrast: None Complications: None FINDINGS: Beam hardening artifact limits the evaluation Scalp/Skull: No abnormalities. Brain sulci: Appropriate for patient's age. Ventricles: Normal in size and configuration.No hydrocephalus. Extra-axial spaces: No masses or fluid collections. Dystrophic calcification at the right paracentral parietal convexity. Parenchyma: Few hypodensities of the periventricular and deep white matter, nonspecific and most commonly seen with mild chronic microvascular ischemic changes.. No masses, hemorrhage or acute or chronic cortical insults Dural sinuses: No abnormal densities. Sellar/Suprasellar region: Intact. Skull base and Craniocervical junction: Intact . Incidental findings: There are sclerotic calcifications of the carotid siphons. Nonspecific mucosal thickening of the left maxillary and left sphenoid sinuses. Remaining sinuses are clear. IMPRESSION: 1. No acute intracranial abnormalities. 2. Nonspecific inflammatory changes of t he left maxillary and sphenoid sinuses. Performing Organization Address City/State/ZIP Code P kelechi Number [facility] [address] [place] [address] * CT Chest Wo Contrast Abdomen Wo Contrast Pelvis Wo Contrast (10/16/2019 5:50 PM CDT) Specimen Narrative Performed At CT CHEST WO CONTRAST ABDOMEN WO CONTRAST PELVIS WO CO NTRAST HM [facility] CLINICAL INDICATION: Fever without so urce TECHNIQUE: Multidetector CT examination of the chest, abdomen, and pelvis was performed without iodinated contrast wi th automated exposure control and/or iterative reconstruction techniques to radiation dose. COMPARISON: 10/06/2019 FINDINGS: CHEST: *A tracheostomy cannula is now present in appropriate position. Trachea is patent. There is mild narrowing of the left mainstem bronchus compared to the right but no endobronchial process or m ucus plugging is identified. *An enteric tube is present in the flui d-filled dilated esophagus, degree of fluid significantly increased in the in terval with foci of intraluminal gas. The distal esophagus is not identified with clips noted proximal to the diaphragm postoperatively as before. Prominent infiltration about th e gastroesophageal junction from inflammatory changes noted. * 1 of 2 left-sided chest tubes remain in place in the posterior aspect of the left hemithorax, the anterior chest tub e extending to the apex removed in the interval. There is no pneumothorax. *There is moderate fluid present throug h the posterior aspect of the left hemithorax more prominent inferior and posterior to the remaining chest tube. Foci of gas are noted within the collec tion with pleural thickening, consistent with empyema. *Of note, there is now extensive fluid along the left lateral chest wall external to the thorax with a crescenti c 3.2 x 9.7 x 8.0 cm collection with foci of gas (series 2 image 84). This occurs along the cranial aspect of the chest tube. *Extensive pleural thickening of the le ft hemithorax appears minimally changed. *There is loculated fluid involving the posterior aspect of the right hemithorax which appears new in the interval. *Areas of patchy subpleural infiltratio n are present through the right upper lobe which may reflect atelectasis. The re are new areas of indeterminate groundglass infiltration present throug h the right middle lobe and right lower lobe concerning for developing pneumonia. *Stable airspace disease in a lobular s eptal thickening peribronchial infiltration remain present the left lexi ng with improved aeration of the left lower lobe from prior. *The heart is mildly enlarged with a mo derate pericardial effusion. Prominent calcifications of the aortic annulus no concha. No dilatation of the ascending aorta. Pulmonary trunk is dilated at 3. 6 cm as before. 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 *The unenhanced liver, spleen, atrophic pancreas, kidneys and adrenal glands are without mass or change. The gallbladder is markedly distended probably related to nothing by mouth status, no intrahep atic biliary dilatation present. *There is prominent ascites in the righ t upper quadrant but without mass effect or associated gas to suggest infection by CT. *High density material is noted through out the colon with multiple diverticula without complication. *Moderate atherosclerosis of the aorta and branch vessels noted. There are probable reactive mesenteric and retrop eritoneal lymph nodes, none considered enlarged by criterion. PELVIS: *A Lechuga catheter is present in the uri nary bladder, the bladder appearing collapsed with gas in the nondependent portion (sagittal image 72). *There is free fluid within the pelvis without organized collection or abscess. *Uterus is not visualized. MUSCULOSKELETAL: *Discogenic sclerosis is noted T9-10. S chmorl's node involves superior endplate of T12 with mild compression deformity *Extensive bilateral soft tissue edema, collection noted left lateral thoracic wall as above. IMPRESSION: 1.New subcutaneous collection in the le ft chest external to the thoracic wall and cranial to the residual single left -sided chest tube as described. 2.Persistent effusion with prominent wa ll thickening and gas about the posterior inferior left hemithorax consistent wit h residual empyema. 3.Interval placement of tracheostomy ca nnula. Enteric tube noted in a markedly dilated fluid-filled esophagus, the dis jayden esophagus and gastroesophageal junction poorly visualized postoperativ hallie given extensive soft tissue infiltration about the thoracoabdominal junction. 4.Developing simple pleural fluid in th e right hemithorax. 5.Developing airspace infiltrates in th e right lung, concerning for developing pneumonia, cause uncertain, typical and atypical etiologies possible. 6.Ascites is noted in the right upper q uadrant which has slightly increased in the interval without collection or absc ess through the abdomen and pelvis. 7.Collapsed urinary bladder with Lechuga catheter in place. 8.Multiple other findings as detailed. Please see report for detail. *[id number] Procedure Note Hm Interface, Radiology Results Incoming - 10/16/2019 8:[address] CHEST WO CONTRAST ABDOMEN WO CONTRAST PELVIS WO CONTRAST CLINICAL INDICATION: Fever without source TECHNIQUE: Multidetector CT examination of the chest, abdomen, and pelvis was performed without iodinated contrast with automated exposure control and/or iterative reconstruction techniques to radiation dose. COMPARISON: 10/06/2019 FINDINGS: CHEST: *A tracheostomy cannula is now present in appropriate position. Trachea is patent. There is mild narrowing of the left mainstem bronchus compared to the right but no endobronchial process or mucus plugging is identified. *An enteric tube is present in the fluid-filled dilated esophagus, degree of fluid significantly increased in the interval with foci of intraluminal gas. The distal esophagus is not identified with clips noted proximal to the diaphragm postoperatively as before. Prominent infiltration about the gastroesophageal junction from inflammatory changes noted. * 1 of 2 left-sided chest tubes remain in place in the posterior aspect of the left hemithorax, the anterior chest tube extending to the apex removed in the interval. There is no pneumothorax. *There is moderate fluid present through the posterior aspect of the left hemithorax more prominent inferior and posterior to the remaining chest tube. Foci of gas are noted within the collection with pleural thickening, consistent with empyema. *Of note, there is now extensive fluid along the left lateral chest wall external to the thorax with a crescentic 3.2 x 9.7 x 8.0 cm collection with foci of gas (series 2 image 84). This occurs along the cranial aspect of the chest tube. *Extensive pleural thickening of the left hemithorax appears minimally changed. *There is loculated fluid involving the posterior aspect of the right hemithorax which appears new in the interval. *Areas of patchy subpleural infiltration are present through the right upper lobe which may reflect atelectasis. There are new areas of indeterminate groundglass infiltration present through the right middle lobe and right lower lobe concerning for developing pneumonia. *Stable airspace disease in a lobular septal thickening peribronchial infiltration remain present the left lung with improved aeration of the left lower lobe from prior. *The heart is mildly enlarged with a moderate pericardial effusion. Prominent calcifications of the aortic annulus noted. No dilatation of the ascending aorta. Pulmonary trunk is dilated at 3.6 cm as before. 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 *The unenhanced liver, spleen, atrophic pancreas, kidneys and adrenal glands are without mass or change. The gallbladder is markedly distended probably related to nothing by mouth status, no intrahepatic biliary dilatation present. *There is prominent ascites in the right upper quadrant but without mass effect or associated gas to suggest infection by CT. *High density material is noted throughout the colon with multiple diverticula without complication. *Moderate atherosclerosis of the aorta and branch vessels noted. There are probable reactive mesenteric and retroperitoneal lymph nodes, none considered enlarged by criterion. PELVIS: *A Lechuga catheter is present in the urinary bladder, the bladder appearing collapsed with gas in the nondependent portion (sagittal image 72). *There is free fluid within the pelvis without organized collection or abscess. *Uterus is not visualized. MUSCULOSKELETAL: *Discogenic sclerosis is noted T9-10. Schmorl's node involves superior endplate of T12 with mild compression deformity *Extensive bilateral soft tissue edema, collection noted left lateral thoracic wall as above. IMPRESSION: 1.New subcutaneous collection in the lef t chest external to the thoracic wall and cranial to the residual single left-sided chest tube as described. 2.Persistent effusion with prominent wal l thickening and gas about the posterior inferior left hemithorax consistent with residual empyema. 3.Interval placement of tracheostomy can nula. Enteric tube noted in a markedly dilated fluid-filled esophagus, the distal esophagus and gastroesophageal junction poorly visualized postoperatively given extensive soft tissue infiltration about the thoracoabdominal junction. 4.Developing simple pleural fluid in the right hemithorax. 5.Developing airspace infiltrates in the right lung, concerning for developing pneumonia, cause uncertain, typical and atypical etiologies possible. 6.Ascites is noted in the right upper qu adrant which has slightly increased in the interval without collection or abscess through the abdomen and pelvis. 7.Collapsed urinary bladder with Lechuga c atheter in place. 8.Multiple other findings as detailed. P lease see report for detail. *[id number] Performing Organization Address City/State/ZIP Code P kelechi Number [facility] [address] [place] [address] * Digoxin level (10/16/2019 2:00 AM CDT) Only the most recent of 2 results within the time period is included. Digoxin 1.1 0.8 - 2.0 ng/mL [facility] Comment: [facility] For valid Digoxin results, at HOSPITAL least 6 hours should elapse between time of last dose and collection of blood. Otherwise, result may be false high. Therapeutic Range: 0.8 - 2.0 ng/mL Specimen Performing Organization Address City/State/ZIP Code P kelechi Number [facility] DEPARTMENT OF [address] [place] [address] PATHOLOGY AND GENOMIC MEDICINE [place] [facility] [address] [place] [address] HOSPITAL * Wound vac placement (10/15/2019 1:47 PM CDT) Narrative Performed At Dinh Lee 09/22 1:40 AM Wound vac placement Date/Time: 10/15/2019 1:47 PM Performed by: Dinh Lee Authorized by: Luke Sparks MD Associated Wounds: Negative Pressure Wound Therapy 0 Left;Lateral;Upper Back Pre-procedure details: Indication: Wound care Sedation: Sedation Type: None. Anesthesia (see MAR for exact dosages): Anesthesia method: None Wound Description: Wound type: Surgical Wound location: Trunk Trunk: Chest Wound age (months, weeks, days): 1 week Eschar tissue present in wound: No Debridement attempted in last 10 days : No Serial debridements required: No Appearance of Wound/Wound Description: Wound full thickness: No Wound exposed tissue: Subcutaneous. Undermining: No Tunneling/Sinus: No Granulation color: Neal Drainage: Serosanguinous Drainage amount: Scant Type of foam: Prevena Size of foam: Customizeable, approx imately 34cm Malodorous?: No Wound Vac Settings: Status: Continuous Post-procedure: Patient tolerance: Patient tolerated the procedure well with no immediate complications Complications: None * XR Abdomen 1 Vw Portable (10/10/2019 7:56 PM CDT) Specimen Narrative Performed At Examination: XR ABDOMEN 1 VW PORTABLE [facility] Clinical History: Distension Comparison: None. Findings: Single frontal view of the abdomen is o btained. Bowel gas pattern is nonspecific with paucity of small bowel gas. No bow el distention is seen. No free air is seen. Pelvic surgical clips are noted. IMPRESSION: 1. Nonspecific bowel gas pattern with p aucity of small bowel gas. [facility]-[id number] Procedure Note Hm Interface, Radiology Results Incoming - 10/10/2019 9:26 PM CDT Examination: XR ABDOMEN 1 VW PORTABLE Clinical History: Distension Comparison: None. Findings: Single frontal view of the abdomen is obtained. Bowel gas pattern is nonspecific with paucity of small bowel gas. No bowel distention is seen. No free air is seen. Pelvic surgical clips are noted. IMPRESSION: 1. Nonspecific bowel gas pattern with pa ucity of small bowel gas. [facility]-[id number] Performing Organization Address City/[facility]/[place] [address] * Transfuse fresh frozen plasma (10/08/2019 4:32 PM CDT) Only the most recent of 3 results within the time period is included. * Venous blood gas, corrected (10/08/2019 4:11 PM CDT) Only the most recent of 4 results within the time period is included. pH, venous 7.17 (L) 7.32 - 7.42 [facility] pCO2, venous 69 (H) 45 - 51 mmHg [facility] pO2, venous 56 (H) 25 - 40 mmHg [facility] Temperature, 35.0 Degrees C [facility] Celsius, venous [facility] O2 saturation, 82 (H) 40 - 70 % [facility] venous [facility] pH, venous 7.19 [facility] pCO2, venous 62 mmHg [facility] pO2, venous 49 mmHg [facility] Base excess, -5 (L) -2 - 2 meq/L [facility] venous [facility] Specimen Blood Performing Organization Address City/[facility] P kelechi Number [facility] [place] [address] PATHOLOGY AND GENOMIC MEDICINE [address] * Ionized calcium, venous (10/08/2019 4:11 PM CDT) Only the most recent of 4 results within the time period is included. Ionized 1.19 1.11 - 1.32 mmol/L [facility] calcium, venous [facility] Specimen Blood Performing Organization Address City/State/ZIP [facility] P kelechi Number [facility] [place] [address] PATHOLOGY AND GENOMIC MEDICINE [address] * O2 saturation, venous (10/08/2019 4:11 PM CDT) Only the most recent of 2 results within the time period is included. Hemoglobin, 8.4 (L) 12.0 - 16.0 g/dL [facility] venous, syringe [facility] O2 saturation, 82 (H) 40 - 70 % [facility] venous [facility] Specimen Blood Performing Organization Address City/[facility] [place] [address] PATHOLOGY AND GENOMIC MEDICINE [address] * AFB culture (10/08/2019 4:07 PM CDT) Only the most recent of 5 results within the time period is included. AFB culture No growth after 6 weeks of [facility] isolate incubation. [facility] Comment: [facility]OSPITAL Specimen Information Specimen Source: Tissue Specimen Site: Lung: Left chest wall skin B Specimen Tissue - Lung Performing Organization Address City/[facility] [place] [address] PATHOLOGY AND [facility] MEDICINE [address] * Tissue culture (10/08/2019 4:07 PM CDT) Only the most recent of 3 results within the time period is included. Pathologist [facility] Tissue culture No growth after 3 days. [facility] isolate Comment: [facility] Specimen Information [facility] Specimen Source: Tissue Specimen Site: Lung: Left chest wall skin B Specimen Tissue Performing Organization Address City/[facility] [place] [address] PATHOLOGY AND GENOMIC MEDICINE [address] * Fungus culture (10/08/2019 4:07 PM CDT) Only the most recent of 5 results within the time period is included. Fungus culture No growth after 4 weeks of [facility] isolate incubation. [facility] Comment: [facility]OSPITAL Specimen Information Specimen Source: Tissue Specimen Site: Lung: Left chest wall skin B Specimen Tissue - Lung Performing Organization Address City/[facility] [place] [address] PATHOLOGY AND GENOMIC MEDICINE [address] * Airway (10/08/2019 1:07 PM CDT) Narrative Performed At Nayeli Solo MD 10/08/2019 1:09 PM Airway Performed by: Nayeli Solo MD Authorized by: Gilles Nazario MD Location: OR Urgency: Elective Difficult Airway: No Anesthesiologist: Gilles Nazario MD Resident/LIGHT EQUIPMENT OPERATOR/AA: Nayeli Solo MD Performed by: anesthesiologist and resident/LIGHT EQUIPMENT OPERATOR/A A Mask Ventilation: Not attempted Airway interventions: Bronchial victor manuel . Number of Attempts at Approach: 1 Patient is intubated with 8.0 ETT, bron chial victor manuel is placed into the left bronchus * Urea nitrogen, urine, random (10/06/2019 4:25 PM CDT) Urea nitrogen, 1,030 mg/dL [facility] urine, random [facility] Specimen Urine Performing Organization Address [facility] [place] [address] * Sodium level, urine, random (10/06/2019 4:25 PM CDT) Only the most recent of 4 results within the time period is included. Sodium, urine, <20 mEq/L [facility] Specimen Urine Performing Organization Address [facility] P kelechi Number [facility] [place] [address] PATHOLOGY [address] * Creatinine level, urine, random (10/06/2019 4:25 PM CDT) Only the most recent of 3 results within the time period is included. Creatinine, 66 mg/dL [facility] urine, random [facility] Specimen Urine Performing Organization Address [facility] [place] [address] PATHOLOGY [address] * Chloride level, syringe (10/05/2019 9:38 PM CDT) Chloride, 111 98 - 112 mEq/L [facility] syringe [facility] Specimen Blood Performing Organization Address [facility] [place] [address] PATHOLOGY AND [facility] MEDICINE [address] * Transthoracic Echocardiogram Limited or Follow Up (w Contrast if needed) (10/05/2019 2:56 PM CDT) Specimen Narrative Performed At H [facility] Echo cardiography Report [address] [facility], [place] [address], [place] [address] Pat.Name: CESAR SPENCER Nash christiana.ID: [id number] S t.Date: 10/05/2019 Refer.MD: LUKE SPARKS MD Exam Time: 2:12:00 PM Study Type:Routine Echo Height: 66in Weight: 132lb BSA: 1.68 m2 Age: 9 1950,68Y Sex: FEMALE BP: 94/51 HR: 58 bpm Sonogrphr: Vinny Roblero, [facility] Pat. Stat.:Inpatient Room: [place] [address] Study Status:Final Echo Event ID:[id number] Order ID: [id number] Reason for Study:Pulmonary embolism, ev al right heart strain History / Clinical:Hyperlipidemia, Hype rtension, Syncope Procedures: Strain, Portable, Stat, 2D Echo,Colorflow Doppler Limited Race: C SUMMARY: LV size is normal. LV EF is normal. RV size is mildly enlarged. RV systolic function is normal. Moderate tricuspid regurgitation Diastolic dysfunction Grade III (Severe ): Impaired relaxation with restrictive LV filling pressures. Estimated PA systolic pressure is 42 mm Hg, assuming a mean RAP of 10 mmHg. FINDINGS: LV: LV size is normal. LV EF i s normal. Overall wall motion is normal. Estimated EF is 6 0-64%. RV: RV size is mildly enlarged . RV systolic function is normal. RV wall motion is normal. LA: LA volume is mildly enlarg ed. RA: RA volume is enlarged. AO: Aortic root diameter is no rmal. NICHOL: No pericardial effusion. SVn: Inferior vena cava is norm al in size. AV: No structural AV abnormali ties noted. MV: No structural MV abnormali ties noted. Mild mitral regurgitation. PV: No structural PV abnormali ties noted. A trace of pulmonic regurgitation. TV: No structural TV abnormali ties noted. Moderate tricuspid regurgitation Farris: Diastolic dysfunction Grade III (Severe): Impaired relaxation with restricti ve LV filling pressures. Other: Estimated PA systolic press ure is 42 mmHg, assuming a mean RAP of 10 mmHg. MEASUREMENTS: 2D Parasternal Long [place] Ao An 1.6 cm LVPWd 0.99 cm Ao Rtd 3.4 cm Index 2 cm/m2 LA Ds 4.1 cm IVSd 0.83 cm RWT 0.41 LVIDd 4.8 cm Index 2.9 cm/m2 LV Mass 151 g (87-12 9)* LVIDs 3.5 cm LVM Index 90 g/m LV%fs 28 % LVOT 1.9 cm Right Ventricle RVIDd 4.6 cm (2.6-4 .3)* LA Sng Plane LA Area 21 cm (8.8-2 3.4) LA Vol 58 ml Index 35 ml/m2 LA LngAx 5.8 cm RA Sng Plane RA Vol 55 ml Index 33 ml/m2 RA LngAx 4.7 cm RA Area 18 cm (8.3-1 9.5) LVOT LVOT Area 3 cm DOPPLER LVOT Stroke Vol LVOT TVI 19 cm HR 57 bpm LVOT LVOT SV 57 ml LVOT CO 3.3 l/min SVi 34 ml/m LVOT CI 1.9 l/m/m TV Pressure Gradient TV PkVel 281 cm/s TV PG 32 mmHg Signed 10/05/2019 04:19 PM Reshma Irby MD Procedure Note Interface, Radiology Results In - 10/05/2019 4:20 PM CDT Echocardiography Report [address] [address], [place] [address] Pat.Name: CESAR SPENCER Pat.ID: [id number] .Date: 10/05/2019 Refer.MD: LUKE SPARKS MD Exam Time: 2:12:00 PM Study Type:Routine Echo Height: 66in Weight: 132lb BSA: 1.68 m2 Age: 9 1950,68Y Sex: FEMALE BP: 94/51 HR: 58 bpm Sonogrphr: ISAI Regan Pat. Stat.:Inpatient Room: [place] [address] Study Status:Final Echo Event ID:[id number] Order ID: [id number] Reason for Study:Pulmonary embolism, eval right heart strain History / Clinical:Hyperlipidemia, Hypertension, Syncope Procedures: Strain, Portable, Stat, 2D Echo,Colorflow Doppler Limited Race: C SUMMARY: LV size is normal. LV EF is normal. RV size is mildly enlarged. RV systolic function is normal. Moderate tricuspid regurgitation Diastolic dysfunction Grade III (Severe): Impaired relaxation with restrictive LV filling pressures. Estimated PA systolic pressure is 42 mmHg, assuming a mean RAP of 10 mmHg. FINDINGS: LV: LV size is normal. LV EF is normal. Overall wall motion is normal. Estimated EF is 60-64%. RV: RV size is mildly enlarged. RV systolic function is normal. RV wall motion is normal. LA: LA volume is mildly enlarged. RA: RA volume is enlarged. AO: Aortic root diameter is normal. NICHOL: No pericardial effusion. SVn: Inferior vena cava is normal in size. AV: No structural AV abnormalities noted. MV: No structural MV abnormalities noted. Mild mitral regurgitation. PV: No structural PV abnormalities noted. A trace of pulmonic regurgitation. TV: No structural TV abnormalities noted. Moderate tricuspid regurgitation Farris: Diastolic dysfunction Grade III (Severe): Impaired relaxation with restrictive LV filling pressures. Other: Estimated PA systolic pressure is 42 mmHg, assuming a mean RAP of 10 mmHg. MEASUREMENTS: 2D Parasternal Long [place] Ao An 1.6 cm LVPWd 0.99 cm Ao Rtd 3.4 cm Index 2 cm/m2 LA Ds 4.1 cm IVSd 0.83 cm RWT 0.41 LVIDd 4.8 cm Index 2.9 cm/m2 LV Mass 151 g (87-129)* LVIDs 3.5 cm LVM Index 90 g/m LV%fs 28 % LVOT 1.9 cm Right Ventricle RVIDd 4.6 cm (2.6-4.3)* LA Sng Plane LA Area 21 cm (8.8-23.4) LA Vol 58 ml Index 35 ml/m2 LA LngAx 5.8 cm RA Sng Plane RA Vol 55 ml Index 33 ml/m2 RA LngAx 4.7 cm RA Area 18 cm (8.3-19.5) LVOT LVOT Area 3 cm DOPPLER LVOT Stroke Vol LVOT TVI 19 cm HR 57 bpm LVOT LVOT SV 57 ml LVOT CO 3.3 l/min SVi 34 ml/m LVOT CI 1.9 l/m/m TV Pressure Gradient TV PkVel 281 cm/s TV PG 32 mmHg Signed 10/05/2019 04:19 PM Reshma Irby MD Performing Organization Address City/[facility] Code P kelechi Number [facility] [address] [place] [address] * Vancomycin level, random (10/05/2019 1:58 PM CDT) Only the most recent of 3 results within the time period is included. Vancomycin, 9.5 ug/mL [facility] Specimen Serum Performing Organization Address [facility] P kelechi Number [facility] DEPARTMENT OF [address] [place] [address] PATHOLOGY AND GENOMIC MEDICINE [address] * OR [place] > I Hour (10/05/2019 12:40 PM CDT) Specimen Narrative Performed At EXAMINATION: OR [place] > 1 HOUR [facility] C-arm fluoroscopy was requested in OR. LOCATION: [facility] OR #6 PROCEDURE: Left Arm Venogram START TIME: 1130 FINISH TIME: 1240 FLUORO TIME: 1.1 DOSE (mgy): 7.9 TECH(S): AB IMPRESSION: Intraoperative fluoroscopic images. Rad iologist was not present during the examination. Separate operative report will be issue d by the physician performing the procedure. [id number] Procedure Note Hm Interface, Radiology Results Incoming - 10/05/2019 9:34 PM CDT EXAMINATION: OR [place] > 1 HOUR C-arm fluoroscopy was requested in OR. LOCATION: [facility] OR #6 PROCEDURE: Left Arm Venogram START TIME: 1130 FINISH TIME: 1240 FLUORO TIME: 1.1 DOSE (mgy): 7.9 TECH(S): AB IMPRESSION: Intraoperative fluoroscopic images. Radiologist was not present during the examination. Separate operative report will be issued by the physician performing the procedure. [id number] Performing Organization Address City/State/ZIP Code P kelechi Number [facility] [address] [place] [address] * Arterial line (10/05/2019 12:35 PM CDT) Narrative Performed At Edward Dempsey MD 10/05/2019 12:35 PM Arterial line Performed by: Edward Dempsey MD Authorized by: Stefani Gomez MD Patient Location: OR Start Time: 10/05/2019 11:00 AM End Time: 10/05/2019 11:15 AM Staff: Anesthesiologist: Stefani Gomez MD Performed by: Anesthesiologist Pre-procedure: patient identified, IV c hecked, site and side verified, risks and benefits discussed, procedure verified, surgical consent complete, patient position confirmed, m onitors and equipment checked, pre-op evaluation complete and timeout performed prior to procedure MSBT: antiseptic used, all elements of maximal sterile barrier technique followed, hand hygiene performed, cap/g own used by other personnel and solutions labeled Indications: Indications: multiple ABGs and hemody namic monitoring Anesthesia: Anesthesia: General Procedure Details: Arterial Line placement: Placed pos t induction Line placement site: Axillary Line placement side: Right Arterial line gauge: 20 G Number of attempts: 2 Ultrasound guidance used: Yes Post-procedure: Post-procedure: Sterile dressing ap plied Post procedure circulation, sensation , movement: Unchanged Patient tolerance: Patient tolerate d the procedure well with no immediate complications * Activated clotting time (10/05/2019 12:32 PM CDT) Only the most recent of 2 results within the time period is included. Activated 218 (H) 96 - 152 sec [facility] clotting time Comment: [facility] Restaurant Attendant Name: [facility] Device ID: [id number] Specimen Performing Organization Address City/[facility] [place] [address] PATHOLOGY [facility] MEDICINE [address] * Triglycerides (10/05/2019 3:30 AM CDT) Only the most recent of 2 results within the time period is included. Triglycerides 136 <150 mg/dL [facility] Specimen Blood Performing Organization Address [facility] P kelechi Number [facility] [place] [address] PATHOLOGY AND [facility] MEDICINE [address] * Potassium, urine, random (10/01/2019 5:15 PM CDT) Potassium, 39.1 mEq/L [facility] urine, random [facility] Specimen Urine Performing Organization Address [facility] [place] [address] PATHOLOGY AND [facility] MEDICINE [address] * Chloride level, urine, random (10/01/2019 5:15 PM CDT) Chloride, <20 mEq/L [facility] urine, random [facility] Specimen Urine Performing Organization Address [facility] [place] [address] PATHOLOGY AND [facility] MEDICINE [address] * TPA/Dornase Administration via chest tube (10/01/2019 11:23 AM CDT) Narrative Performed At Robyn Pacheco PA 10/01/2019 11:24 AM TPA/Dornase Administration via chest tu be Date/Time: 10/01/2019 11:23 AM Performed by: Robyn Pacheco PA Authorized by: Luke Sparks MD Consent: Consent obtained: Verbal Consent given by: Patient Risks discussed: Bleeding, incomple te drainage, infection and pain Alternatives discussed: No treatmen t Reserve protocol: Procedure explained and questions ans wered to patient or proxy's satisfaction: yes Relevant documents present and verifi ed: yes Test results available and properly l abeled: yes Imaging studies available: yes Required blood products, implants, de vices, and special equipment available: yes Site/side marked: yes Immediately prior to procedure, a aura e out was called: yes Patient identity confirmed: Verball y with patient, arm band and hospital-assigned identification number Indications: Indications: Left Empyema Post-procedure details: Patient tolerance of procedure: Silvia erated well, no immediate complications * Vancomycin level, trough (10/01/2019 10:18 AM CDT) Only the most recent of 3 results within the time period is included. Vancomycin, 26.0 (HH) 10.0 - 20.0 ug/mL [facility] trough Comment: [facility] Therapeutic Ranges: HOSPITAL Peak 30.0 - 40.0 ug/mL Trough 10.0 - 20.0 ug/mL Specimen Serum Performing Organization Address City/State/ZIP Code P kelechi Number [facility] DEPARTMENT OF [address] [place] [address] PATHOLOGY AND GENOMIC MEDICINE [facility] [address] [place] [address] * TPA/Dornase Administration via chest tube (09/30/2019 12:22 PM CDT) Narrative Performed At Robyn Pacheco PA 09/30/2019 12:24 PM TPA/Dornase Administration via chest tu be Date/Time: 09/30/2019 12:23 PM Performed by: Robyn Pacheco PA Authorized by: Reynold Prater MD Consent: Consent obtained: Verbal Consent given by: Patient Risks discussed: Bleeding, incomple te drainage, infection and pain Alternatives discussed: No treatmen t Reserve protocol: Procedure explained and questions ans wered to patient or proxy's satisfaction: yes Relevant documents present and verifi ed: yes Test results available and properly l abeled: yes Imaging studies available: yes Required blood products, implants, de vices, and special equipment available: yes Site/side marked: yes Immediately prior to procedure, a aura e out was called: yes Patient identity confirmed: Verball y with patient, hospital-assigned identification number and arm band Indications: Indications: Left Empyema Anesthesia (see MAR for exact dosages): Anesthesia method: None Post-procedure details: Patient tolerance of procedure: Silvia erated well, no immediate complications * TPA/Dornase Administration via chest tube (09/29/2019 10:22 AM CDT) Narrative Performed At Robyn Pacheco PA 09/29/2019 10:24 AM TPA/Dornase Administration via chest tu be Date/Time: 09/29/2019 10:22 AM Performed by: Robyn Pacheco PA Authorized by: Luke Sparks MD Consent: Consent obtained: Verbal Consent given by: Patient Risks discussed: Bleeding, incomple te drainage, infection and pain Alternatives discussed: No treatmen t Reserve protocol: Procedure explained and questions ans wered to patient or proxy's satisfaction: yes Relevant documents present and verifi ed: yes Test results available and properly l abeled: yes Imaging studies available: yes Required blood products, implants, de vices, and special equipment available: yes Site/side marked: yes Immediately prior to procedure, a aura e out was called: yes Patient identity confirmed: Verball y with patient, hospital-assigned identification number and arm band Indications: Indications: Left Empyema Anesthesia (see MAR for exact dosages): Anesthesia method: None Post-procedure details: Patient tolerance of procedure: Silvia erated well, no immediate complications * TPA/Dornase administration via chest tube (09/28/2019 10:41 AM CDT) Narrative Performed At Robyn Pacheco PA 09/28/2019 10:45 AM TPA/Dornase administration via chest tu be Date/Time: 09/28/2019 10:42 AM Performed by: Robyn Pacheco PA Authorized by: Luke Sparks MD Consent: Consent obtained: Verbal Consent given by: Patient Risks discussed: Bleeding, incomple te drainage, infection and pain Alternatives discussed: No treatmen t Reserve protocol: Procedure explained and questions ans wered to patient or proxy's satisfaction: yes Relevant documents present and verifi ed: yes Test results available and properly l abeled: yes Imaging studies available: yes Required blood products, implants, de vices, and special equipment available: yes Site/side marked: yes Immediately prior to procedure, a aura e out was called: yes Patient identity confirmed: Verball y with patient, hospital-assigned identification number and arm band Indications: Indications: Left pleural effusion Anesthesia (see MAR for exact dosages): Anesthesia method: None Post-procedure details: Patient tolerance of procedure: Silvia erated well, no immediate complications * TPA/Dornase Administration via chest tube (09/27/2019 10:58 AM CDT) Narrative Performed At Robyn Pacheco PA 09/27/2019 11:01 AM TPA/Dornase Administration via chest tu be Date/Time: 09/27/2019 10:59 AM Performed by: Robyn Pacheco PA Authorized by: Luke Sparks MD Consent: Consent obtained: Verbal Consent given by: Patient Risks discussed: Bleeding, incomple te drainage, infection and pain Alternatives discussed: No treatmen t Reserve protocol: Procedure explained and questions ans wered to patient or proxy's satisfaction: yes Relevant documents present and verifi ed: yes Test results available and properly l abeled: yes Imaging studies available: yes Required blood products, implants, de vices, and special equipment available: yes Site/side marked: yes Immediately prior to procedure, a aura e out was called: yes Patient identity confirmed: Verball y with patient, hospital-assigned identification number and arm band Indications: Indications: Left pleural effusion Anesthesia (see MAR for exact dosages): Anesthesia method: None Post-procedure details: Patient tolerance of procedure: Silvia erated well, no immediate complications * CT Chest W Contrast Abdomen W Contrast Pelvis W Contrast (09/26/2019 3:33 PM CDT) Specimen Narrative Performed At EXAMINATION: CT CHEST W CONTRAST ABDOMEN W CONTRAST PELVIS W CONTRAST [facility] CLINICAL HISTORY: Evaluate leukocytos is intra-abdominal fluid collection TECHNIQUE: Multiple axial images of the chest, abdomen, and pelvis were obtained following intravenous administration of iodinated contrast. Sagittal and coronal computerized reformatted images were ob tained. CT imaging was performed with iterative reconstruction techniques and/or automated exposure control to reduce ra diation dose. COMPARISON: CT chest 09/22/2019, CT [address] and abdomen 09/19/2019 FINDINGS: Chest: 1. Small complex multiloculated left pl eural effusion, and 2 left chest tubes, are stable. 2.Diffuse volume loss in the left, diff use groundglass, peribronchial consolidation and peribronchial bandlik e opacities persist. There is slight worsening of the degree of volume loss. 3.Moderate right dependent pleural effu gm and associated compressive atelectasis are stable. There is no acu te right lung parenchymal disease. 4.Mediastinal adenopathy is stable. 5.The heart size is normal. There is no pericardial effusion. The main pulmonary artery is dilated at 3.9 cm diameter lopez ggesting pulmonary arterial hypertension. Abdomen and Pelvis: 1. Mild right-sided abdominal ascites, and trace pelvic ascites, are present. The right-sided abdominal ascites is si milar to previous CT of the abdomen. 2.Sigmoid diverticulosis is present. Th ere is no bowel obstruction or obvious acute inflammation. Surgical changes at the GE junction are present. 3.A tiny cleft-like linear defect in th e inferior right hepatic lobe has not changed since 03/26/2019. Otherwise liver is unremarkable. 4.The spleen, pancreas, gallbladder, ad renals are normal. 5.Mild left renal cortical scarring is stable. Otherwise the kidneys are normal. There is no hydronephrosis. Urinary cristy dder is decompressed by Lechuga catheter. 6.Diffuse body wall edema is consistent with anasarca. 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 There is no acute skeletal abnormality. IMPRESSION: Slight worsening of left hemithoracic v olume loss. Otherwise overall stable examination [facility]-[id number] Procedure Note [facility], Radiology Results 09/26/2019 3:50 PM CDT EXAMINATION: CT CHEST W CONTRAST ABDOMEN W CONTRAST PELVIS W CONTRAST CLINICAL HISTORY: Evaluate leukocytosis intra-abdominal fluid collection TECHNIQUE: Multiple axial images of the chest, abdomen, and pelvis were obtained following intravenous administration of iodinated contrast. Sagittal and coronal computerized reformatted images were obtained. CT imaging was performed with iterative reconstruction techniques and/or automated exposure control to reduce radiation dose. COMPARISON: CT chest 09/22/2019, CT chest and abdomen 09/19/2019 FINDINGS: Chest: 1. Small complex multiloculated left ple ural effusion, and 2 left chest tubes, are stable. 2.Diffuse volume loss in the left, diffu se groundglass, peribronchial consolidation and peribronchial bandlike opacities persist. There is slight worsening of the degree of volume loss. 3.Moderate right dependent pleural effus ion and associated compressive atelectasis are stable. There is no acute right lung parenchymal disease. 4.Mediastinal adenopathy is stable. 5.The heart size is normal. There is no pericardial effusion. The main pulmonary artery is dilated at 3.9 cm diameter suggesting pulmonary arterial hypertension. Abdomen and Pelvis: 1. Mild right-sided abdominal ascites, a nd trace pelvic ascites, are present. The right-sided abdominal ascites is similar to previous CT of the abdomen. 2.Sigmoid diverticulosis is present. The re is no bowel obstruction or obvious acute inflammation. Surgical changes at the GE junction are present. 3.A tiny cleft-like linear defect in the inferior right hepatic lobe has not changed since 03/26/2019. Otherwise liver is unremarkable. 4.The spleen, pancreas, gallbladder, adr enals are normal. 5.Mild left renal cortical scarring is s table. Otherwise the kidneys are normal. There is no hydronephrosis. Urinary bladder is decompressed by Lechuga catheter. 6.Diffuse body wall edema is consistent with anasarca. 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 There is no acute skeletal abnormality. IMPRESSION: Slight worsening of left hemithoracic volume loss. Otherwise overall stable examination [facility]-[id number] Performing Organization Address City/State/ZIP Code P [facility] Number [facility] [address] [place] [address] * Respiratory pathogen panel (09/23/2019 11:45 AM CDT) Adenovirus PCR Not Detected [facility] Comment: [facility] Specimen Information HOSPITAL Specimen Source: Bronchial alveolar lavage Specimen Site: LLL (Left Lower Lobe) Coronavirus Not Detected [facility] HKU1 PCR [facility] Coronavirus Not Detected [facility] NL63 PCR [facility] Coronavirus Not Detected [facility] 229E PCR [facility] Coronavirus Not Detected [facility] OC43 PCR [facility] Human Not Detected [facility]neum[facility] Detected [facility] rhinovirus/ente [facility] rovirus PCR [facility] Influenza A PCR Not Detected [facility] Influenza A/H1 Not Reported [facility] PCR [facility] Influenza A/H3 Not Reported [facility] PCR [facility] Influenza Not Reported [facility] A/H1-2009 PCR [facility] Influenza B PCR Not Detected [facility] Parainfluenza Not Detected [facility] virus 1 PCR [facility] Parainfluenza Not Detected [facility] virus 2 PCR [facility] Parainfluenza Not Detected [facility] virus 3 PCR [facility] Parainfluenza Not Detected [facility] virus 4 PCR [facility] Respiratory Not Detected [facility] syncytial virus [facility] PCR [facility] Bordetella Not Detected [facility] pertussis PCR [facility] Bordetella Not Detected [facility] parapertussis [facility] PCR [facility] Chlamydia Not Detected [facility] pneumoniae PCR [facility] Mycoplasma Not Detected [facility] pneumoniae PCR [facility] Influenza A no Not Reported [facility] sub type PCR [facility] Specimen Bronchial alveolar lavage - LLL (left lower lobe) Performing Organization Address City/State/ZIP Code P [facility] Number [facility] DEPARTMENT OF [address] [place] [address] PATHOLOGY AND GENOMIC MEDICINE [address] * US Insert Pleura Catheter (09/22/2019 1:25 PM CDT) Specimen Narrative Performed At EXAMINATION: US INSERT PLEURA CATHETER HM [facility] CLINICAL INDICATION: Left loculated p leural effusion TECHNIQUE: The risks, benefits, and alternatives w ere discussed and written informed consent was obtained. A time-out site a nd side procedure was performed. A site for needle entry was selected an d the skin was prepped and draped in the usual sterile fashion. After local admi nistration of 1% buffered lidocaine, a tiny dermatotomy was made. Using ultras ound guidance, a 5 Greek Yueh catheter was advanced into the left hemithorax with return of turb id moffett colored fluid. Using Seldinger technique, a wire was inserted and a 10 F APD drain advanced into the collection with coil deployed and all wires remove d. Spontaneous return of turbid moffett fluid was present at the APD drain at conclusion of the plac ement. The patient was discharged to the floor. Conscious sedation: None specifically a dministered for the procedure. EBL: None. Complications: None apparent. Assistants: None. IMPRESSION: Successful ultrasound 10F APD drain adelina cement in complex left pleural fluid collection for TPA administration as de scribed. *[facility]-[id number] Procedure Note Hm Interface, Radiology Results Incoming - 09/22/2019 2:36 PM CDT EXAMINATION: US INSERT PLEURA CATHETER CLINICAL INDICATION: Left loculated pleural effusion TECHNIQUE: The risks, benefits, and alternatives were discussed and written informed consent was obtained. A time-out site and side procedure was performed. A site for needle entry was selected and the skin was prepped and draped in the usual sterile fashion. After local administration of 1% buffered lidocaine, a tiny dermatotomy was made. Using ultrasound guidance, a 5 Greek Yueh catheter was advanced into the left hemithorax with return of turbid moffett colored fluid. Using Seldinger technique, a wire was inserted and a 10F APD drain advanced into the collection with coil deployed and all wires removed. Spontaneous return of turbid moffett fluid was present at the APD drain at conclusion of the placement. The patient was discharged to the floor. Conscious sedation: None specifically administered for the procedure. EBL: None. Complications: None apparent. Assistants: None. IMPRESSION: Successful ultrasound 10F APD drain placement in complex left pleural fluid collection for TPA administration as described. *[facility]-[id number] Performing Organization Address City/State/ZIP Code [facility] [address] [place] [address] * Airway (09/20/2019 5:23 PM CDT) Narrative Performed At Cale Olivas CRNA 09/19 5:24 PM Airway Date/Time: 09/20/2019 4:40 PM Performed by: Cale Olivas C RNA Authorized by: Anil Chapa MD Location: OR Urgency: Elective Difficult Airway: No Anesthesiologist: Anil Chapa MD Resident/LIGHT EQUIPMENT OPERATOR/AA: Cale Olivas CRNA Performed by: resident/LIGHT EQUIPMENT OPERATOR/AA Preoxygenated with 100% O2: Yes Mask Ventilation: Easy mask Final Airway Type: Endotracheal airwa y Final Endotracheal Airway: ETT - doub le lumen left Cuffed: Yes Technique Used: Direct laryngoscopy Devices/Methods Used in Placement: In tubating stylet Insertion Site: Oral Blade Type: Alvarenga Laryngoscope Blade/Videolaryngoscope Bl merrill Size: 2 ETT Double Lumen (fr): 39 Cuff at minimum occlusion pressure: Yes Measured from: Lips Placement Verified by: CO2 detection, d irect visualization and equal breath sounds Laryngoscopic view: Grade I - full vi ew of glottis Rapid Sequence Induction (RSI): No Number of Attempts at Approach: 1 * Nocardia culture (09/20/2019 5:10 PM CDT) Nocardia No Nocardia isolated after 7 [facility] culture isolate days. [facility] Comment: [facility]OSPITAL Specimen Information Specimen Source: Bronchial alveolar lavage Specimen Site: Lung: left lung Specimen Tissue - Lung Performing Organization Address City/State/ZIP Code P [facility] Number [facility] DEPARTMENT OF [address] [place] [address] PATHOLOGY AND GENOMIC MEDICINE [facility] [address] [place] [address] [address] * CT Chest W Contrast Abdomen W Contrast (09/19/2019 5:25 PM CDT) Specimen Narrative Performed At EXAMINATION: CT CHEST W CONTRAST ABDOMEN W CONTRAST [facility] CLINICAL HISTORY: 68 years Female post op fevers increasing WBC TECHNIQUE: Multiple axial images of t he chest and abdomen were obtained following intravenous contrast. Sagitta l and coronal computerized reformatted images were also obtained. CT imaging w as performed with iterative reconstruction techniques and/or automated exposure control to reduce ra diation dose. COMPARISON: CT of the chest without contrast from . IMPRESSION: CHEST: Lungs and airways: There is mild compre ssive atelectasis in the dependent portions of the right lower lobe. There is consolidation of the left lower lobe with some associated air bronchograms l ikely reflecting combination of atelectasis as well as infection and/or aspiration. There is p artial atelectasis of the left upper lobe. Pleura: Two large bore chest tubes are in place in the left pleural space 1 present anteriorly and one posteriorly. The complex left pleural fluid collection is slightly increased in siz e compared to the prior CT from 11/13/2019. Loculated pleural fluid along the left superior medicinal surfa ce is new. There is a new small right pleural effu gm. No significant residual left pneumothorax is identified. Mediastinum and lymph nodes: Evaluation is limited due to lack of intravenous contrast. Within this limitation a prec arinal lymph node seen on series 2 image 37 is stable measuring 0.9 cm in short axis. Subcarinal lymph nodes are also unchanged measuring up to 1.1 cm in short axis. Evaluation of the esophagus is limited due to lack of enteric contrast. There is a tube in the proximal esophagus which terminates just above the level of the jerry. Cardiovascular: The heart is at the upp er limits of normal in size. There is a small pericardial effusion. The thoraci c aorta is normal in caliber. The pulmonary artery trunk remains mildly d ilated. This is nonspecific and can be seen in the setting of pulmonary artery hypertension. Other: A PICC line from the right upper extremity approach terminates in the lower aspect of the SVC. ABDOMEN: Liver: The liver is normal. No focal ma ss. Gallbladder/Biliary: The gallbladder is mildly distended and demonstrates a thickened wall. Color wall thickening c ould be related to adjacent ascites. There is no evidence of biliary duct di latation. Spleen: The spleen is not enlarged. Pancreas: The pancreas is unremarkable. Adrenal Glands: The adrenal glands are unremarkable. Kidneys: The kidneys are unremarkable. No mass, hydronephrosis or calculi. Vascular: The abdominal aorta is nonane urysmal. There are moderate atherosclerotic calcifications in the m id and distal portions of the abdominal aorta. Nodes: No enlarged retroperitoneal or m esenteric lymphadenopathy. Bowel: There are postoperative changes in the upper abdomen from prior gastric bypass procedure. The included large an d small bowel loops are normal in caliber. There is no evidence of bowel obstruction. Ascites/fluid collections: There is a s mall amount of ascites in the upper abdomen. There is diffuse anasarca in t he body wall of the lower chest and throughout the abdomen. The free intrap eritoneal air seen on prior CT examination from 09/13/2019 has resolved. MUSCULOSKELETAL: No suspicious osseous lesions. SUMMARY: 1.Increased size of complex left pleura l effusion. Partially loculated left pleural fluid along the mediastinal amalia face is new compared to the CT from 09/13/2019. 2.New small right pleural effusion, sma ll amount of ascites in the upper abdomen, and body wall anasarca likely reflects volume overload. 3.Consolidation of the left lower lobe is likely due to the combination of compressive atelectasis, with suspected underlying infectious process. 4.Gallbladder wall thickening is likely reactive due to ascites. 5.Resolution of free intraperitoneal ai r seen on the prior examination. [facility]-[id number] Procedure Note [facility], Radiology Results Incoming - 09/19/2019 6:05 PM CDT EXAMINATION: CT CHEST W CONTRAST ABDOMEN W CONTRAST CLINICAL HISTORY: 68 years Female post op fevers increasing WBC TECHNIQUE: Multiple axial images of the chest and abdomen were obtained following intravenous contrast. Sagittal and coronal computerized reformatted images were also obtained. CT imaging was performed with iterative reconstruction techniques and/or automated exposure control to reduce radiation dose. COMPARISON: CT of the chest without contrast from 09/13/2019. IMPRESSION: CHEST: Lungs and airways: There is mild compressive atelectasis in the dependent portions of the right lower lobe. There is consolidation of the left lower lobe with some associated air bronchograms likely reflecting combination of atelectasis as well as infection and/or aspiration. There is partial atelectasis of the left upper lobe. Pleura: Two large bore chest tubes are in place in the left pleural space 1 present anteriorly and one posteriorly. The complex left pleural fluid collection is slightly increased in size compared to the prior CT from 11/13/2019. Loculated pleural fluid along the left superior medicinal surface is new. There is a new small right pleural effusion. No significant residual left pneumothorax is identified. Mediastinum and lymph nodes: Evaluation is limited due to lack of intravenous contrast. Within this limitation a precarinal lymph node seen on series 2 image 37 is stable measuring 0.9 cm in short axis. Subcarinal lymph nodes are also unchanged measuring up to 1.1 cm in short axis. Evaluation of the esophagus is limited due to lack of enteric contrast. There is a tube in the proximal esophagus which terminates just above the level of the jerry. Cardiovascular: The heart is at the upper limits of normal in size. There is a small pericardial effusion. The thoracic aorta is normal in caliber. The pulmonary artery trunk remains mildly dilated. This is nonspecific and can be seen in the setting of pulmonary artery hypertension. Other: A PICC line from the right upper extremity approach terminates in the lower aspect of the SVC. ABDOMEN: Liver: The liver is normal. No focal mass. Gallbladder/Biliary: The gallbladder is mildly distended and demonstrates a thickened wall. Color wall thickening could be related to adjacent ascites. There is no evidence of biliary duct dilatation. Spleen: The spleen is not enlarged. Pancreas: The pancreas is unremarkable. Adrenal Glands: The adrenal glands are unremarkable. Kidneys: The kidneys are unremarkable. No mass, hydronephrosis or calculi. Vascular: The abdominal aorta is nonaneurysmal. There are moderate atherosclerotic calcifications in the mid and distal portions of the abdominal aorta. Nodes: No enlarged retroperitoneal or mesenteric lymphadenopathy. Bowel: There are postoperative changes in the upper abdomen from prior gastric bypass procedure. The included large and small bowel loops are normal in caliber. There is no evidence of bowel obstruction. Ascites/fluid collections: There is a small amount of ascites in the upper abdomen. There is diffuse anasarca in the body wall of the lower chest and throughout the abdomen. The free intraperitoneal air seen on prior CT examination from 09/13/2019 has resolved. MUSCULOSKELETAL: No suspicious osseous lesions. SUMMARY: 1.Increased size of complex left pleural effusion. Partially loculated left pleural fluid along the mediastinal surface is new compared to the CT from 09/13/2019. 2.New small right pleural effusion, smal l amount of ascites in the upper abdomen, and body wall anasarca likely reflects volume overload. 3.Consolidation of the left lower lobe i s likely due to the combination of compressive atelectasis, with suspected underlying infectious process. 4.Gallbladder wall thickening is likely reactive due to ascites. 5.Resolution of free intraperitoneal air seen on the prior examination. [facility]-[id number] Performing Organization Address City/State/ZIP Code [facility] Number [facility] [address] [place] [address] * Troponin (09/18/2019 12:05 AM CDT) Only the most recent of 13 results within the time period is included. Troponin 0.796 (H) 0.000 - 0.040 ng/mL [facility] Comment: [facility] In patients suspected of HOSPITAL having a myocardial infarction, along with all other appropriate clinical measures and actions including ECG and other diagnostics as appropriate, measure Ultra TnI at 0 hrs and at 3 hrs. Myocardial infarction VERY LIKELY The 0 hr TnI level is > 0.10 ng/mL Myocardial infarction LIKELY The 0 hr TnI level is > 0.04 ng/mL and 3 hr level is increased or decreased by at least 0.020 ng/mL Myocardial infarction VERY UNLIKELY Both the 0 hr and 3 hr TnI levels <= 0.04 ng/mL(within normal limits) OR 0 hr is > 0.04 ng/mL and 3 hr is increased OR decreased by less than 0.020 ng/mL Specimen Performing Organization Address City/State/ZIP Code P kelechi Number [facility] DEPARTMENT OF [address] [place] [address] PATHOLOGY AND GENOMIC MEDICINE [facility] [address] [place] [address] HOSPITAL * Transthoracic Echocardiogram Complete, (w Contrast, Strain and 3D if needed) (09/16/2019 1:50 PM CDT) Specimen Narrative Performed At H [facility] Echo cardiography Report [id number] [facility], [employer], [address]Name: CESAR SPENCER Nash villeda.ID: [id number] S t.Date: 09/16/2019 Refer.MD: LUKE SPARKS MD Exam Time: 1:48:00 PM Study Type:Routine Echo Height: 66in Weight: 130lb BSA: 1.67 m2 Age: 9 1950,68Y Sex: FEMALE BP: 124/60 HR: 93 bpm Sonogrphr: ISAI Hurts Pat. Stat.:Inpatient Room: [facility] Study Status:Final Echo Event ID:[id number] Order ID: [id number] Reason for Study:Atrial fibrillation Procedures: 2D Echo, Colorflow Doppler, Portable, Intravenous Definity Contrast SUMMARY: LV EF is normal. Estimated EF is 55-5 9%. Estimated PA systolic pressure is 50 mm Hg, assuming a mean RAP of 15 mmHg. FINDINGS: LV: LV size is normal. LV EF i s normal. Overall wall motion is normal. Septal motion is paradoxical secondary to LBBB or conduction abnormality. E stimated EF is 55-59%. RV: RV size is normal. RV syst olic function is normal. LA: LA volume is moderately en larged. RA: RA size is normal. AO: Aortic root diameter is no rmal. NICHOL: No pericardial effusion. AV: No structural AV abnormali ties noted. MV: Mild thickening of mitral leaflets. Mild to moderate mitral regurgitation. PV: No structural PV abnormali ties noted. A trace of pulmonic regurgitation. TV: No structural TV abnormali ties noted. Mild tricuspid regurgitation Other: Estimated PA systolic press ure is 50 mmHg, assuming a mean RAP of 15 mmHg. MEASUREMENTS: 2D Parasternal Long [place] Ao An 2 cm LVPWd 0.8 cm Ao Rtd 3.5 cm Index 2.1 cm/m2 LA Ds 3.9 cm IVSd 0.88 cm RWT 0.38 LVIDd 4.2 cm Index 2.5 cm/m2 LV Mass 108 g (87-12 9) LVIDs 2.4 cm LVM Index 65 g/m LV%fs 43 % LA Sng Plane LA Area 23 cm (8.8-2 3.4) LA Vol 69 ml Index 42 ml/m2 LA LngAx 6.2 cm LVOT Stroke Vol LVOT 1.9 cm LVOT LVOT Area 2.8 cm DOPPLER LVOT Stroke Vol LVOT TVI 15 cm LVOT CI 2.4 l/m/m LVOT SV 42 ml HR 93 bpm LVOT CO 3.9 l/min LVOT SVi 25 ml/m Signed 09/16/2019 05:11 PM Jimenez Colunga M.D. Procedure Note Interface, Radiology Results In - 09/16/2019 5:11 PM CDT Echocardiography Report [id number] [address] [facility].Name: CESAR SPENCER Pat.ID: [id number] .Date: 09/16/2019 Refer.MD: LUKE SPARKS MD Exam Time: 1:48:00 PM Study Type:Routine Echo Height: 66in Weight: 130lb BSA: 1.67 m2 Age: 9 1950,68Y Sex: FEMALE BP: 124/60 HR: 93 bpm Sonogrphr: ISAI Hurst [facility]. Stat.:Inpatient Room: [facility] Study Status:Final Echo Event ID:[id number] Order ID: [id number] Reason for Study:Atrial fibrillation Procedures: 2D Echo, Colorflow Doppler, Portable, Intravenous Definity Contrast SUMMARY: LV EF is normal. Estimated EF is 55-59%. Estimated PA systolic pressure is 50 mmHg, assuming a mean RAP of 15 mmHg. FINDINGS: LV: LV size is normal. LV EF is normal. Overall wall motion is normal. Septal motion is paradoxical secondary to LBBB or conduction abnormality. Estimated EF is 55-59%. RV: RV size is normal. RV systolic function is normal. LA: LA volume is moderately enlarged. RA: RA size is normal. AO: Aortic root diameter is normal. NICHOL: No pericardial effusion. AV: No structural AV abnormalities noted. MV: Mild thickening of mitral leaflets. Mild to moderate mitral regurgitation. PV: No structural PV abnormalities noted. A trace of pulmonic regurgitation. TV: No structural TV abnormalities noted. Mild tricuspid regurgitation Other: Estimated PA systolic pressure is 50 mmHg, assuming a mean RAP of 15 mmHg. MEASUREMENTS: 2D Parasternal Long [place] Ao An 2 cm LVPWd 0.8 cm Ao Rtd 3.5 cm Index 2.1 cm/m2 LA Ds 3.9 cm IVSd 0.88 cm RWT 0.38 LVIDd 4.2 cm Index 2.5 cm/m2 LV Mass 108 g (87-129) LVIDs 2.4 cm LVM Index 65 g/m LV%fs 43 % LA Sng Plane LA Area 23 cm (8.8-23.4) LA Vol 69 ml Index 42 ml/m2 LA LngAx 6.2 cm LVOT Stroke Vol LVOT 1.9 cm LVOT LVOT Area 2.8 cm DOPPLER LVOT Stroke Vol LVOT TVI 15 cm LVOT CI 2.4 l/m/m LVOT SV 42 ml HR 93 bpm LVOT CO 3.9 l/min LVOT SVi 25 ml/m Signed 09/16/2019 05:11 PM Jimenez Colunga M.D. Performing Organization Address City/State/ZIP Code P [facility] Number C[facility] [id number] [place] [address] * PICC insertion (09/15/2019 3:26 PM CDT) Narrative Performed At Baldemar Ames RN 09/15/2019 3:31 PM PICC insertion Date/Time: 09/15/2019 3:31 PM Performed by: Rene Babcock RN Authorized by: Dulce Toscano NP Consent: Consent obtained: Verbal and writte n Consent given by: Healthcare agent (DAUGHTER BY PHONE ) Risks discussed: arterial puncture, i ncorrect placement, nerve damage, bleeding, infection, superficial thromb us and deep vein thrombus Alternatives discussed: No treatmen t Reserve protocol: Procedure explained and questions ans wered to patient or proxy's satisfaction: yes Relevant documents present and verifi ed: yes Test results available and properly l abeled: yes Imaging studies available: yes Required blood products, implants, de vices, and special equipment available: yes Site/side marked: yes Immediately prior to procedure, a aura e out was called: yes Patient identity confirmed: Verball y with patient, arm band and hospital-assigned identification number Pre-procedure details: Hand hygiene: Hand hygiene performed prior to insertion Sterile barrier technique: All elemen ts of maximal sterile technique followed Skin preparation: 2% chlorhexidine Skin preparation agent: Skin preparat ion agent completely dried prior to procedure Anesthesia (see MAR for exact dosages): Anesthesia method: Local infiltrati on Local anesthetic: Lidocaine 1% w/o epi Route of administration: Subcutaneo us Line Placement Details: Patient position: Flat Vessel Size (mm): 2.6. 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 Location: Right basilic Device Type: Non-valved Catheter size: 4 Fr Catheter to vein ratio: 58% Line Characteristics: Catheter Brand: [employer]age PROVENA POWER PICC External Catheter Length (cm): 0 Internal Catheter Length (cm): 33 Total Catheter Length (cm): 33 Catheter Lot Number: [id number] Catheter Expiration Date: 08/21/2020 Procedure Details: Landmarks identified: yes Ultrasound guidance: yes Sterile ultrasound techniques: Steril e gel and sterile probe covers were used Number of attempts: 1 Number of PICC kits used during proce dure: 1 Purpose of procedure: PICC Placemen t Successful PICC Placement: Yes Patency/Placement: Flushes without difficulty, flushed with 10 mL normal saline, positive blood return, i njection cap placed and x-ray placement verified PICC placed utlizing ultrasound-guide d Modified Seldinger Technique: Yes Dressing/Securement: Antimicrobial dressing applied, transparent semipermeable dressing, catheter secure ment device, dressing dry and intact and dressing changed Blood Loss Amount: Less than 20 mL Post-Procedure Details: Post-procedure: Dressing applied Tip placement confirmed by chest x-ra y: Yes Patient tolerance of procedure: Silvia erated well, no immediate complications * Microalbumin, urine, random (09/14/2019 6:45 PM CDT) Total volume, No volume mL [facility] urine [facility] Urine 70 mg/dL [facility] creatinine [facility] concentration [facility] Urine 20.6 mg/dL [facility] microalbumin [facility] concentration [facility] Urine 294 (H) 0 - 30 mg/g [facility] microalbumin/cr [facility] eatinine ratio [facility] Specimen Urine Performing Organization Address City/State/ZIP Code P kelechi Number [facility] DEPARTMENT OF [address] [place] [id number] PATHOLOGY AND GENOMIC MEDICINE [address] * Protein, urine, random (09/14/2019 6:45 PM CDT) Only the most recent of 2 results within the time period is included. Protein, urine 89 mg/dL [facility] Specimen Urine Performing Organization Address [facility] [place] [address] PATHOLOGY AND GENOMIC MEDICINE [address] * Copper level, serum (09/14/2019 12:29 PM CDT) Copper 61.5 (L) 80.0 - 155.0 ug/dL [facility] Comment: INTERPRETIVE INFORMATION: Copper, Serum or Plasma Elevated results may be due to skin or collection-related contamination, including the use of a noncertified metal-free collection/transport tube. If contamination concerns exist due to elevated levels of serum/plasma copper, confirmation with a second specimen collected in a certified metal-free tube is recommended. Serum copper may be elevated with infection, inflammation, stress, and copper supplementation. In females, elevated copper may also be caused by oral contraceptives and (concentrations may be elevated up to 3 times normal during the third trimester). Test developed and characteristics determined by [facility]. See Compliance Statement B: [place]/CS Performed by [facility], [address] [place] [id number] [email or web address], Armen Cabrera MD, Lab. Director Specimen Blood Performing Organization Address City/[facility] P kelechi Number [facility] [address] [place] [address] [facility] [address] [place] [address] * Vitamin B1 level, whole blood (09/14/2019 12:29 PM CDT) Only the most recent of 2 results within the time period is included. [facility] Vitamin B1 30 (L) 70 - 180 nmol/L [facility] B Comment: INTERPRETIVE INFORMATION: Vitamin B1, Whole Blood This assay measures the concentration of thiamine diphosphate (TDP), the primary active form of vitamin B1. Approximately 90 percent of vitamin B1 present in whole blood is TDP. Thiamine and thiamine monophosphate, which comprise the remaining 10 percent, are not measured. Test developed and characteristics determined by [facility]. See Compliance Statement B: [employer]/CS Performed by [facility], [address] [place] [id number] [email or web address], Armen Cabrera MD, Lab. Director Specimen Blood Performing Organization Address [facility] P kelechi Number [facility] [address] [place] [address] [facility] [address] [place] [address] * Zinc level, serum (09/14/2019 12:29 PM CDT) Zinc 10.3 (L) 60.0 - 120.0 ug/dL [facility] Comment: INTERPRETIVE INFORMATION: Zinc, Serum or Plasma Elevated results may be due to skin or collection-related contamination, including the use of a noncertified metal-free collection/transport tube. If contamination concerns exist due to elevated levels of serum/plasma zinc, confirmation with a second specimen collected in a certified metal-free tube is recommended. Circulating zinc concentrations are dependent on albumin status and are depressed with malnutrition. Zinc may also be lowered with infection, inflammation, stress, oral contraceptives, and . Zinc may be elevated with zinc supplementation or fasting. Elevated zinc concentrations may interfere with copper absorption. Test developed and characteristics determined by [facility]. See Compliance Statement B: [facility]/CS Performed by [facility], [address] [place] [id number] www.[email or web address], Armen Cabrera MD, Lab. Director Specimen Blood Performing Organization Address [facility] P kelechi Number [facility] [address] [place] [address] [facility] [address] [place] [address] * Vitamin A level, plasma or serum (09/14/2019 12:29 PM CDT) Vitamin A 0.12 (L) 0.30 - 1.20 mg/L [facility] (retinol) Retinyl <0.02 0.00 - 0.10 mg/L [facility] palmitate Vitamin A See Note [facility] interpretation Comment: Retinol greater than 0.3 mg/L is typically associated with adequate liver stores in adults, and is within normal limits for children. Retinol less than 0.10 mg/L may indicate depleted liver stores and severe deficiency. Test developed and characteristics determined by [facility]. See Compliance Statement B: [facility]/ Performed by [facility], [address] [place] [address] www.[email or web address], Armen Cabrera MD, Lab. Director Specimen Blood Performing Organization Address [facility]/ZIP Code P kelechi Number [facility] [address] [place] [address] [facility] [address] [place] [address] * Vitamin D 25 hydroxy level (09/14/2019 12:29 PM CDT) Vitamin D, 14.2 (L) 30.0 - 150.0 ng/mL [facility] 25-hydroxy Comment: [facility]ATION This assay reports the sum of HOSPITAL 25-hydroxy vitamin D3 and 25-hydroxy vitamin D2. Reference range: 0-17 years: Deficiency: less than 20ng/mL Optimum level: greater than or equal to 20 ng/mL. 18 years and older: Deficiency: less than 20ng/mL Insufficiency: 20-29 ng/mL Optimum Level: 30-80 ng/mL The assay reportable range is 3.4 155.9 ng/mL. Levels higher than 150 ng/mL may be associated with toxicity. If toxicity is clinically suspected and the reported result is >155.9 ng/mL,contact lab for alternative methods to obtain a definitive level. If separate quantitation of 25-hydroxy vitamin D3 and 25-hydroxy vitamin D2 is needed, please contact lab for alternative methods. Specimen Blood Performing Organization Address [facility] Code P kelechi Number [facility] DEPARTMENT OF [address] [place] [address] PATHOLOGY AND GENOMIC MEDICINE [facility] [address] [place] [address] HOSPITAL * Vitamin B12 level (09/14/2019 12:29 PM CDT) Only the most recent of 2 results within the time period is included. Vitamin B12 >1600 (H) 211 - 946 pg/mL [facility] Comment: [facility] Significant overlap exists HOSPITAL between normal and deficiency states. However, most patients with deficiencies will have Serum B12 <200 pg/mL. Specimen Serum Performing Organization Address [facility] Code P kelechi Number [facility] DEPARTMENT OF [place] [address] PATHOLOGY AND GENOMIC MEDICINE [facility] [address] * Arterial line (09/13/2019 10:21 PM CDT) Narrative Performed At Sindy Swan MD 09/13/2019 10:22 PM Arterial line Performed by: Sindy Swan MD Authorized by: Juan Pena MD Patient Location: OR Start Time: 09/13/2019 9:20 AM Staff: Anesthesiologist: Juan Pena MD Resident/LIGHT EQUIPMENT OPERATOR/AA: Sindy Swan MD Performed by: Resident/LIGHT EQUIPMENT OPERATOR/AA Pre-procedure: patient identified, IV c hecked, site and side verified, risks and benefits discussed, procedure verified, surgical consent complete, patient position confirmed, m onitors and equipment checked, pre-op evaluation complete and timeout performed prior to procedure MSBT: antiseptic used, all elements of maximal sterile barrier technique followed, hand hygiene performed, cap/g own used by other personnel and solutions labeled Indications: Indications: multiple ABGs and hemody namic monitoring Anesthesia: Anesthesia: Local infiltration Procedure Details: Arterial Line placement: Placed pre -induction Line placement site: Radial Line placement side: Right Arterial line gauge: 20 G Number of attempts: 1 Ultrasound guidance used: Yes Post-procedure: Post-procedure: Sterile dressing ap plied Post procedure circulation, sensation , movement: Unable to assess Patient tolerance: Patient tolerate d the procedure well with no immediate complications * Airway (09/13/2019 10:11 PM CDT) Narrative Performed At Juan Pena MD 11:02 PM Airway Date/Time: 09/13/2019 9:30 AM Performed by: Sindy Swan MD Authorized by: Juna Pena MD Location: OR Urgency: Elective Difficult Airway: No Anesthesiologist: Umer Pena MD Resident/LIGHT EQUIPMENT OPERATOR/AA: Sindy Swan MD Performed by: resident/LIGHT EQUIPMENT OPERATOR/AA and anesthesiologis t Preoxygenated with 100% O2: Yes C-spine Precautions Maintained Througho ut: Yes Mask Ventilation: Easy mask Final Airway Type: Endotracheal airwa y Final Endotracheal Airway: ETT - doub le lumen left Cuffed: Yes Technique Used: Direct laryngoscopy Devices/Methods Used in Placement: Fi beroptic Insertion Site: Oral Blade Type: Nata Laryngoscope Blade/Videolaryngoscope Bl merrill Size: 3 ETT Double Lumen (fr): 37 Cuff at minimum occlusion pressure: Yes Measured from: Lips ETT to Lips (cm): 30 Placement Verified by: CO2 detection an d direct visualization Rapid Sequence Induction (RSI): No Modified RSI: Yes Number of Attempts at Approach: 1 Easy BMV, Peak pressures maintain <20, easy DL, atraumatic. Position confirmed with fiberoptic scope, bronch ial cuff inflated under direct vision. Position confirmed after positi oned left lateral. * Lactic acid level, SEPSIS - Now and repeat 2x every 3 hours (09/13/2019 5:20 PM CDT) Only the most recent of 2 results within the time period is included. Lactic acid 2.4 (H)Comment: Results called 0.5 - 2.2 mmol/ L [place] and read back by CRISTINA MELTON 09/13/2019 18:07 [facility] Specimen Blood Performing Organization Address City/State/ZIP Code P kelechi Number [facility] DEPARTMENT OF [address] [place] [id number] PATHOLOGY AND GENOMIC MEDICINE [facility] [place] [address] * CT Abdomen Pelvis Wo Contrast (09/13/2019 5:19 PM CDT) Specimen Narrative Performed At CT ABDOMEN PELVIS WO CONTRAST [facility] CLINICAL INDICATION: Nausea vomitin g, With PO contrast TECHNIQUE: Multidetector CT of the ab domen and pelvis was performed without intravenous contrast with automated exp osure control and/or iterative reconstruction techniques to ra diation dose. COMPARISON: 03/26/2019 FINDINGS: Please note, the lack of contrast decre ases sensitivity and limits evaluation. LUNG BASES: Please see CT chest of th e same day which is reported separately, high density contrast material present in the left pleural space consistent with leak with an anterior pneumothorax, dickson st tube with complex fluid and extensive subcutaneous gas noted. LIVER: Unremarkable within limits of unenhanced exam. BILIARY: Hydropic appearing gallbladd er probably relates to nothing by mouth status. No dilatation of the common rosi e duct or intrahepatic ducts. PANCREAS: Pancreas is atrophic SPLEEN: Normal. ADRENALS: Normal. KIDNEYS: No mass or hydronephrosis. N o calculus identified. Too small to characterize probable 4 mm cyst noted i n the lateral interpolar right kidney. GI: The patient has a Lj-en-Y gastr ic bypass which had previously been in the abdomen on March 2019 exam with a gastrostomy tube in the gastric remnant with moderate fluid on that exam. The g astrostomy tube is no longer visualized but there is stable prominent fluid through the boom wilfrid remnant. The gastric bypass now appears to lie in the inferior chest wi th prominent high density noted within the esophagus which appears thickened. There also appears to be a large active leak present with contrast and gas external to the bypass limb outlining the left hemithorax with associated left-sided pneumothorax. Add itional gas is noted in the upper abdomen beneath the hemidiaphragm (sagittal derik ge 50 for example), some gas tracking along the IVC and right lynn of the diaphragm. Bowel loops within the abdomen are otherwise unremarkable apart from diverticulosis. VASCULAR: Mild/moderate scattered ath erosclerotic plaque with limited evaluation. LYMPH NODES: No enlarged lymph nodes in the abdomen or pelvis. PELVIS: No lymphadenopathy or abnorma l fluid collection. No significant free fluid through the pelvis. Urinary bladd er is collapsed with Lechuga catheter in place with intraluminal gas noted proba sagar related to catheter placement. MUSCULOSKELETAL: Moderate spondylosis of the thoracolumbar spine is present with mild hip osteoarthrosis. OTHER: Pneumoperitoneum is present li azucena dissecting from the chest into the upper abdomen given retraction of the p atient's gastric bypass and definite esophageal anastomosis into the chest. IMPRESSION: 1.Findings consistent with active leak probably about the gastroenteric anastomosis of a retracted gastric bypa ss into the lower chest with associated left-sided hydropneumothorax and active leak near the gastroesophageal junction, the distinct leak point not well-defined given distortion of bowel in this region. 2.Small pneumoperitoneum dissecting int o the upper abdomen from aforementioned GE junction leak with hiatal hernia. 3.No acute abnormality identified in kenneth wel loops within the abdomen or pelvis. No significant free fluid. 4.Incidental findings as described. COMMUNICATION: The findings and their associated recommendations were discussed with Dr Cardona in BT ED by phon e with their acknowledgment at 5:[address] surgery and general surgery are invo lved in the patient's care and Dr Brendan rodríguez offered to discuss with them regarding the suspected perfo ration of this patient still in the ED. *[id number] Procedure Note Hm Interface, Radiology Results Incoming - 09/13/2019 5:[address] ABDOMEN PELVIS WO CONTRAST CLINICAL INDICATION: Nausea vomiting, With PO contrast TECHNIQUE: Multidetector CT of the abdomen and pelvis was performed without intravenous contrast with automated exposure control and/or iterative reconstruction techniques to radiation dose. COMPARISON: 03/26/2019 FINDINGS: Please note, the lack of contrast decreases sensitivity and limits evaluation. LUNG BASES: Please see CT chest of the same day which is reported separately, high density contrast material present in the left pleural space consistent with leak with an anterior pneumothorax, chest tube with complex fluid and extensive subcutaneous gas noted. LIVER: Unremarkable within limits of unenhanced exam. BILIARY: Hydropic appearing gallbladder probably relates to nothing by mouth status. No dilatation of the common bile duct or intrahepatic ducts. PANCREAS: Pancreas is atrophic SPLEEN: Normal. ADRENALS: Normal. KIDNEYS: No mass or hydronephrosis. No calculus identified. Too small to characterize probable 4 mm cyst noted in the lateral interpolar right kidney. GI: The patient has a Lj-en-Y gastric bypass which had previously been in the abdomen on March 2019 exam with a gastrostomy tube in the gastric remnant with moderate fluid on that exam. The gastrostomy tube is no longer visualized but there is stable prominent fluid through the gastric remnant. The gastric bypass now appears to lie in the inferior chest with prominent high density noted within the esophagus which appears thickened. There also appears to be a large active leak present with contrast and gas external to the bypass limb outlining the left hemithorax with associated left-sided pneumothorax. Additional gas is noted in the upper abdomen beneath the hemidiaphragm (sagittal image 50 for example), some gas tracking along the IVC and right lynn of the diaphragm. Bowel loops within the abdomen are otherwise unremarkable apart from diverticulosis. VASCULAR: Mild/moderate scattered atherosclerotic plaque with limited evaluation. LYMPH NODES: No enlarged lymph nodes in the abdomen or pelvis. PELVIS: No lymphadenopathy or abnormal fluid collection. No significant free fluid through the pelvis. Urinary bladder is collapsed with Lechuga catheter in place with intraluminal gas noted probably related to catheter placement. MUSCULOSKELETAL: Moderate spondylosis of the thoracolumbar spine is present with mild hip osteoarthrosis. OTHER: Pneumoperitoneum is present likely dissecting from the chest into the upper abdomen given retraction of the patient's gastric bypass and definite esophageal anastomosis into the chest. IMPRESSION: 1.Findings consistent with active leak p robably about the gastroenteric anastomosis of a retracted gastric bypass into the lower chest with associated left-sided hydropneumothorax and active leak near the gastroesophageal junction, the distinct leak point not well-defined given distortion of bowel in this region. 2.Small pneumoperitoneum dissecting into the upper abdomen from aforementioned GE junction leak with hiatal hernia. 3.No acute abnormality identified in bow el loops within the abdomen or pelvis. No significant free fluid. 4.Incidental findings as described. COMMUNICATION: The findings and their associated recommendations were discussed with Dr Cardona in BT ED by phone with their acknowledgment at 5:[address] surgery and general surgery are involved in the patient's care and Dr Cardona gas offered to discuss with them regarding the suspected perforation of this patient still in the ED. *[id number] Performing Organization Address City/[facility]/[place] [address] * LDH, misc fluid (09/13/2019 4:55 PM CDT) [facility] type [facility] LDH, fluid 4,475 U/L [facility] Comment: CONGREGATION The reference interval(s) and HOSPITAL other method performance specifications have not been established for this body fluid. The test results must be integrated into the clinical context for interpretation. This test has been modified from the manufacturers instructions. The performance characteristics were determined by [facility] in a manner consistent with CLIA requirements. This test has not been cleared or approved by the U.S. Food and Drug Administration. Specimen Fluid Performing Organization Address City/State/ZIP Code P kelechi Number [facility] DEPARTMENT OF [address] [place] [address] PATHOLOGY AND GENOMIC MEDICINE [address] * Amylase level, misc fluid (09/13/2019 4:55 PM CDT) [facility] type [facility] Amylase, fluid 222 U/L [facility] Comment: CONGREGATION The reference interval(s) and HOSPITAL other method performance specifications have not been established for this body fluid. The test results must be integrated into the clinical context for interpretation. This test has been modified from the manufacturers instructions. The performance characteristics were determined by [facility] in a manner consistent with CLIA requirements. This test has not been cleared or approved by the U.S. Food and Drug Administration. Specimen Fluid Performing Organization Address City/State/ZIP Code P kelechi Number [facility] [place] [address] PATHOLOGY AND GENOMIC MEDICINE [address] * pH, misc fluid (09/13/2019 4:55 PM CDT) [facility] Fluid type Pleural [facility] pH, fluid 8.00Comment: Reference ranges [facility] are not established for CONGREGATION Miscellanous specimens. HOSPITAL Specimen Fluid Performing Organization Address [facility] [place] [address] PATHOLOGY AND [facility] MEDICINE [address] * D-dimer (09/13/2019 3:12 PM CDT) [facility] D-dimer 1.24 (H) 0.00 - 0.40 ug/mL [facility] Comment: FEU CONGREGATION Units are ug/ml [facility]. [facility] When combined with low clinical probability, D-dimer results of less than 0.5 ug/ml FEU have a good negative predictive value in excluding PE or DVT. For D-dimer results greater than 0.5 ug/ml FEU further testing is indicated if PE or DVT is suspected clinically. Elevated D-dimer results have been reported in DVT, PE, and DIC cases and may indicate the presence of a clot. D-dimer results may be elevated due to old age, , inflammatory diseases, trauma, post-operative states, sepsis, and malignancies. Specimen Blood Performing Organization Address City/State/ZIP Code P kelechi Number [facility] DEPARTMENT OF [address] [id number] PATHOLOGY AND GENOMIC MEDICINE [facility] [address] * Occult blood, stool (09/13/2019 11:25 AM CDT) Occult blood, Negative for occult blood. [facility] stool Comment: CONGREGATION Specimen Information SHANDON Specimen Source: Stool HOSPITAL Specimen Site: Nonpreserved Specimen Stool - Nonpreserved Performing Organization Address City/State/ZIP Code P kelechi Number [facility] [address] [place] [address] PATHOLOGY AND GENOMIC MEDICINE [facility] [address] [place] [address] HOSPITAL * Lipase level (09/13/2019 9:35 AM CDT) Only the most recent of 3 results within the time period is included. Pathologist [facility] Lipase 8 (L) 13 - 60 U/L [facility] Specimen Blood Performing Organization Address City/[facility] Code P kelechi Number [facility] [address] [place] [address] PATHOLOGY AND GENOMIC MEDICINE [facility] [address] [place] [address] HOSPITAL * ECG ED Preliminary Interpretation - Not an Order (09/13/2019 9:24 AM CDT) Only the most recent of 2 results within the time period is included. Narrative Performed At Miguel Celeste MD 09/14/2019 12 :26 PM ECG ED Preliminary Interpretation - Not an Order Performed by: Miguel Celeste MD Authorized by: Miguel Celeste MD ECG reviewed by ED Physician in the abs ence of a clinical informaticist: yes Previous ECG: Previous ECG: Compared to current Comparison ECG info: EKG 03/18/19: previously tachycardic Similarity: Changes noted Interpretation: Interpretation: normal Rate: ECG rate: 139 ECG rate assessment: tachycardic Rhythm: Rhythm: atrial fibrillation Rhythm comment: With RVR Ectopy: Ectopy: none QRS: QRS axis: Normal QRS intervals: Normal Conduction: Conduction: normal ST segments: ST segments: Abnormal Depression: V3, V4, II and aVF T waves: T waves: inverted Inverted: V3, V4, V5, I, II, III an d aVF Other findings: Other findings: prolonged qTc interva l * CRITICAL CARE (09/13/2019 9:24 AM CDT) Narrative Performed At Miguel Celeste MD 09/14/2019 12 :26 PM Critical Care Performed by: Miguel Celeste MD Authorized by: Miguel Celeste MD Critical care provider statement: Critical care time (minutes): 93 Critical care time was exclusive of: Separately billable procedures and treating other patients Critical care was necessary to treat or prevent imminent or life-threatening deterioration of the f ollowing conditions: BLOW PIT OPERATOR failure or compromise, circulatory failure, mimi al failure, sepsis, shock and dehydration Critical care was time spent personal ly by me on the following activities: Development of treatment plan with patient or surrogate, discussions with primary provider, eval uation of patient's response to treatment, examination of patient, obta ining history from patient or surrogate, re-evaluation of patient's c ondition, pulse oximetry, ordering and review of radiographic studies, ord ering and review of laboratory studies, ordering and performing treatm ents and interventions and discussions with consultants Hiro 'yes' if you are taking over cri tical care for this patient from another provider.: no * Central Line (09/13/2019 9:24 AM CDT) Narrative Performed At Miguel Celeste MD 09/14/2019 12 :26 PM Central Line Performed by: Miguel Celeste MD Authorized by: Miguel Celeste MD Consent: Consent given by: Patient Risks discussed: Arterial puncture, pneumothorax, bleeding and infection Alternatives discussed: Delayed ronaldo atment and observation Reserve protocol: Relevant documents present and verifi ed: yes Test results available and properly l abeled: yes Imaging studies available: yes Site/side marked: yes Immediately prior to procedure, a aura e out was called: yes Patient identity confirmed: [facility] l-assigned identification number and arm band Pre-procedure details: Hand hygiene: Hand hygiene performed prior to insertion Sterile barrier technique: All elemen ts of maximal sterile technique followed Skin preparation: 2% chlorhexidine Skin preparation agent: Skin preparat ion agent completely dried prior to procedure Anesthesia (see MAR for exact dosages): Anesthesia method: Local infiltrati on Local anesthetic: Lidocaine 1% w/o epi Procedure details: Catheter type: Triple lumen Catheter size: 8.5 Fr Catheter length (cm): 17 Catheter site: internal jugular vein Catheter Site Laterality: Right Patient position: Flat Landmarks identified: yes Ultrasound guidance: yes Sterile ultrasound techniques: Steril e gel and sterile probe covers were used Number of attempts: 1 Successful placement: yes Post-procedure details: Post-procedure: Dressing applied an d line sutured Assessment: Blood return through al l ports, free fluid flow, no pneumothorax on x-ray and placement sarah ified by x-ray Patient tolerance of procedure: Silvia erated well, no immediate complications * Chest Tube Insertion (09/13/2019 9:24 AM CDT) Narrative Performed At Miguel Celeste MD 09/14/2019 12 :26 PM Chest Tube Insertion Performed by: Miguel Celeste MD Authorized by: Miguel Celeste MD Consent: Consent obtained: Verbal Consent given by: Patient Risks discussed: Bleeding, incomple te drainage, pain and damage to surrounding structures Alternatives discussed: Delayed ronaldo atment Reserve protocol: Procedure explained and questions ans wered to patient or proxy's satisfaction: yes Relevant documents present and verifi ed: yes Test results available and properly l abeled: yes Imaging studies available: yes Required blood products, implants, de vices, and special equipment available: yes Site/side marked: yes Immediately prior to procedure a time out was called: yes Patient identity confirmed: Verball y with patient and arm band Pre-procedure details: Skin preparation: Betadine and Chlo raprep Sedation: Sedation type: Narcotic Narcotic(s) used:: Fentanyl Anesthesia (see MAR for exact dosages): Anesthesia method: Local infiltrati on Local anesthetic: Lidocaine 1% WITH epi Procedure details: Placement location: L lateral Scalpel size: 11 Tube size (Fr): 40 Dissection instrument: Lazara clamp and finger Ultrasound guidance: no Tension pneumothorax: no Tube connected to: Heimlich valve a nd water seal Drainage characteristics: Air only Suture material: 0 silk Dressinx4 sterile gauze and pet rolatum-impregnated gauze Post-procedure details: Post-insertion x-ray findings: tube i n good position Patient tolerance of procedure: Silvia erated well, no immediate complications * COLONOSCOPY-EXTERNAL (05/28/2019) Narrative Performed At This result has an attachment that is n ot available. * XR Shoulder 2+ Vw Left (04/14/2019 9:30 AM CONFIGURATOR) Specimen Narrative Performed At [facility] Three-view x-rays of the left shoulder: There is a normal-appearing shoulder film there may be a slight upw brady shift of the humeral head on the glenoid consistent with some rotato r cuff atrophy/insufficiency Performing Organization Address City/State/ZIP Code P kelechi Number [facility] [address] [place] [address] * Large Joint Arthrocentesis: shoulder, L subacromial bursa (04/14/2019 9:15 AM CONFIGURATOR) Narrative Performed At Hiro Cruz MD 04/14/2019 9:55 AM Large Joint Arthrocentesis: shoulder, L subacromial bursa Consent given by: patient Supporting Documentation Indications: pain Procedure Details Location: shoulder - L subacromial burs a Left side: Needle size: 22 G Approach: posterior Left shoulder medications administered: 80 mg methylPREDNISolone acetate 80 mg/mL; 3 mL lidocaine 10 mg/mL (1 %) * CT Abdomen Pelvis W Contrast (03/26/2019 7:40 AM CONFIGURATOR) Only the most recent of 3 results within the time period is included. Specimen Narrative Performed At EXAMINATION: CT ABDOMEN PELVIS W CONTRAST AGUSTO VALADEZ CLINICAL HISTORY: rule out undrained fluid collection TECHNIQUE: Multiple axial images of the abdomen and pelvis were obtained following intravenous administration of iodinated contrast. CT imaging was performed with iterative reconstruction technique and/or automated exposure control to reduce radiation dose. COMPARISON: March 18, 2019 FINDINGS: LOWER THORAX: Moderate left and small right pleural e ffusions and adjacent volume loss. Superimposed consolidative opacities of the right lower lobe. ABDOMEN: Liver: The liver is normal. No focal ma ss. Gallbladder: The gallbladder is normal. Spleen: Not enlarged. Small amount of r im-enhancing pericolonic fluid is present. Pancreas: Fatty infiltration. No ductal dilation. Adrenal Glands: The adrenal glands are unremarkable. Kidneys: No mass or hydronephrosis. Sub centimeter hypodense lesions in the right lower pole are too small to characteriz e. Abdominal Aorta: Scattered aortoiliac c alcifications. No aneurysm. Nodes: A few prominent retroperitoneal lymph nodes are noted which are nonspecific. Bowel: Redemonstration of postsurgical changes related the prior gastric bypass. A small 5.3 x 1.4 cm, lentiform fluid c ollection is seen along the lateral aspect of the greater curvature along t he course of the prior esophageal surgical drain and gastrojejunostomy. A percutaneous gastr ostomy catheter is seen within the remnant stomach. No bowel obstruction. Jejunojejunostomy in the left mid abdomen, unremarkable. Degree of small bowel dilatation has sl ightly decreased in the interim. Moderate amount of stool is seen throughout the colon. Colonic diverticulosis without evidence of acute diverticulitis. Appendix is normal. Other: Trace perihepatic ascites, relat ively similar to prior. A right lateral approach surgical drain terminates in t he left upper abdomen at the level of the splenic flexure. PELVIS: Pelvis: Hysterectomy. Urinary bladder i s grossly unremarkable. Bones and soft tissues: Degenerative ch anges of the osseous structures. No suspicious lesions. Unchanged body wall edema. IMPRESSION: 1.Tiny peripherally enhancing, air-cont aining fluid collection along the course of the prior esophageal drain, extendin g along the gastrojejunostomy. 2.Tiny perisplenic fluid collection is now rim-enhancing. Superimposed would be difficult to exclude. 3.Moderate left and small right effusio ns, adjacent atelectasis and right lower lobe pneumonia/aspiration. [facility]-[id number] Procedure Note Hm Interface, Radiology Results Incoming - 03/26/2019 8:01 AM CONFIGURATOR EXAMINATION: CT ABDOMEN PELVIS W CONTRAST CLINICAL HISTORY: rule out undrained fluid collection TECHNIQUE: Multiple axial images of the abdomen and pelvis were obtained following intravenous administration of iodinated contrast. CT imaging was performed with iterative reconstruction technique and/or automated exposure control to reduce radiation dose. COMPARISON: March 18, 2019 FINDINGS: LOWER THORAX: Moderate left and small right pleural effusions and adjacent volume loss. Superimposed consolidative opacities of the right lower lobe. ABDOMEN: Liver: The liver is normal. No focal mass. Gallbladder: The gallbladder is normal. Spleen: Not enlarged. Small amount of rim-enhancing pericolonic fluid is present. Pancreas: Fatty infiltration. No ductal dilation. Adrenal Glands: The adrenal glands are unremarkable. Kidneys: No mass or hydronephrosis. Subcentimeter hypodense lesions in the right lower pole are too small to characterize. Abdominal Aorta: Scattered aortoiliac calcifications. No aneurysm. Nodes: A few prominent retroperitoneal lymph nodes are noted which are nonspecific. Bowel: Redemonstration of postsurgical changes related the prior gastric bypass. A small 5.3 x 1.4 cm, lentiform fluid collection is seen along the lateral aspect of the greater curvature along the course of the prior esophageal surgical drain and gastrojejunostomy. A percutaneous gastrostomy catheter is seen within the remnant stomach. No bowel obstruction. Jejunojejunostomy in the left mid abdomen, unremarkable. Degree of small bowel dilatation has slightly decreased in the interim. Moderate amount of stool is seen throughout the colon. Colonic diverticulosis without evidence of acute diverticulitis. Appendix is normal. Other: Trace perihepatic ascites, relatively similar to prior. A right lateral approach surgical drain terminates in the left upper abdomen at the level of the splenic flexure. PELVIS: Pelvis: Hysterectomy. Urinary bladder is grossly unremarkable. Bones and soft tissues: Degenerative changes of the osseous structures. No suspicious lesions. Unchanged body wall edema. IMPRESSION: 1.Tiny peripherally enhancing, air-conta ining fluid collection along the course of the prior esophageal drain, extending along the gastrojejunostomy. 2.Tiny perisplenic fluid collection is n ow rim-enhancing. Superimposed would be difficult to exclude. 3.Moderate left and small right effusion s, adjacent atelectasis and right lower lobe pneumonia/aspiration. [facility][id number] Performing Organization Address City/State/ZIP Code P kelechi Number [facility] [address] [place] [address] * Echocardiogram complete w contrast and 3D if needed (03/19/2019 10:17 AM CONFIGURATOR) Ao Root 3.70 cm [facility] Diameter AoV Area, Vmax 2.86 cm2 [facility] AoV Area, VTI 2.71 cm2 [facility] AoV Mean PG 2.34 mmHg [facility] AoV Peak PG 3.73 mmHg [facility] AoV Vmax 0.98 m/s [facility] AoV VTI 0.20 m [facility] BSA Bishop 1.55 m2 [facility] BSA 1.58 m2 [facility] IVS,d 0.82 cm [facility] IVS/LVPW,2D 1.02 [facility] Left Atrium 4.41 cm [facility] Dimension Anterior LV,d 4.39 cm [facility] LV EF,2D 64.75 % [facility] LV,s 3.10 cm [facility] LVOT area 3.20 cm2 [facility] LVOT Diam,S 2.02 cm [facility] LVOT Vmax 0.86 m/s [facility] LVOT VTI 0.16 m [facility] LVPWD,d 0.80 cm [facility] TR Vpeak 3.48 mm/s [facility] MV E A ratio 1.12 [facility] TR pk grad 43.71 mmHg [facility] AoV area i VTI 1.72 cm2/m2 [facility] BSA [place] BMI 18.56 kg/m2 [facility] E wave 166.82 msec [facility] decelartion time MV Peak A Gustavo 0.57 m/s [facility] MV valve area p 4.55 cm2 [facility] 1/2 method MV Peak E Gustavo 0.63 m/s [facility] MV stenosis 48.38 ms [facility] pressure 1/2 time AV LVOT peak 2.99 mmHg [facility] gradient Ao Root 3.70 cm [facility] Diameter MV mean 1.33 mmHg [facility] gradient LV SYS VOL 38.04 ml [facility] LV FARRIS VOL 87.44 ml [facility] LA area s A4C 20.69 cm2 [facility] LV SI Teich 2D 31.24 ml/m2 [facility] LV SV Teich 2D 49.39 ml [facility] LV Vol s Teich 38.04 ml [facility] PSAX LVOT CI 2.99 l/min/m2 [facility] LVOT CO 4.73 l/min [facility] LVOT HR for 90.60 bpm [facility] LVOT CO LVOT SI 33.04 ml/m2 [facility] MR peak grad 2.65 mmHg [facility] MV Vmax 0.81 m [facility] MV VTI Tips 0.15 m [facility] BSA [place] 1.55 m2 [facility] AoV Vmn 0.74 [facility] IVS s 2D 1.00 [facility] LV FS Teich 2D 29.36 [facility] MV AE ratio 0.89 [facility] LV FS Cube 2D 29.36 [facility] LVOT Vmn 0.66 [facility] Pt Size 167.64 [facility] Pt Wt 52.16 [facility] Aov area Vmn 3.05 cm2 [facility] LA A_P score P 4.02 [facility] LVOT mean grad 1.84 mmHg [facility] MAX Pred HR 149.72 [facility] 85 of MPHR 127.26 [facility] AoV area I VMN 1.93 cm2/m2 [facility] bsa Calc MPHR 149.72 bpm [facility] IVS pct thck 21.71 % [facility] PLAX LV SI Cube 2D 34.76 ml/m2 [facility] LV SV Cube 2D 54.96 ml [facility] LV vol d cube 84.87 ml [facility] 2D LV vol s cube 29.91 ml [facility] 2D LVPW pct thck 22.38 % [facility] PLAX LVPW s PLAX 0.98 cm [facility] MV Decel slope 3.79 m/s2 [facility] Pred Exer Dur 6.79 [facility] R1 Pred METS R1 5.56 [facility] LA Vol MOD A4C 55.18 ml [facility] Velocity Ratio 0.88 m/s [facility] (V1/V2) EF 56.50 % [facility] E/A ratio 1.11 [facility] Specimen Narrative Performed At [facility] Left ventricular systolic function i s normal. Left Ventricular ejection fraction i s 60 - 65%. There is mild sclerosis of the aorti c valve leaflets. Moderate-severe tricuspid valve regu rgitation. Performing Organization Address City/State/ZIP Code P kelechi Number [facility] [address] [place] [address], * Amylase level (03/19/2019 5:06 AM CONFIGURATOR) Amylase 22 (L) 28 - 100 U/L [facility] Specimen Plasma specimen Performing Organization Address City/State/ZIP Code P kelechi Number [facility] DEPARTMENT OF [address] [place] [address] PATHOLOGY AND GENOMIC MEDICINE [facility] [address] * CT Angiogram Pe Chest (03/18/2019 10:19 AM CONFIGURATOR) Specimen Narrative Performed At EXAMINATION: CT ANGIOGRAM PE CHEST [facility] CLINICAL HISTORY: tachycardia and recen t surgery rule out PE TECHNIQUE: PE PROTOCOL: CT angiograph ic images of the chest were obtained during intravenous administration of io dinated contrast. Computerized reformatted images and 3-D MIP images w ere also obtained and archived (CT pulmonary embolus protocol). CT imaging was performed with iterative re construction technique and/or automated exposure control to reduce radiation do se. COMPARISON: No prior IMPRESSION: CHEST: 1. Pulmonary Arteries: No definite CT s can evidence of acute pulmonary embolus. Mildly enlarged measuring 3.6 cm. 2. Aorta: The thoracic aorta is nonaneu rysmal 3. Heart: The heart is marginal in size . 4. Pericardial Fluid: Tiny 5. Mediastinum: No enlarged mediastinal or hilar lymphadenopathy. No mediastinal mass. 4. Airways: Central airways are patent. 5. Lungs: Lower lobe atelectasis, left greater than right with small right and [id number] left pleural effusion . Minimal biapical pleural and parenchymal scarring. No focal infiltra brandon. Pulmonary vasculature is within normal limits. 6. Pleural Fluid: Small right and small -to-moderate left pleural effusions. 7. Bones: Degenerative changes of the o sseous structures. No suspicious lesions. 8. Upper Abdomen: History of recent abd ominal surgery. Postsurgical changes associated with the stomach with nasoga stric tube, gastrostomy tube and left upper quadrant catheter at the margin o f the [id number]-ci-zsvh. Mild anasarca. Minimal air in the soft tissues of the left flank from recent s urgery. 9. Other Findings: None SUMMARY: 1.No CT scan evidence of acute pulmonar y embolus. Pulmonary artery hypertension. 2.Bibasilar atelectasis and effusions, left greater than right. No focal infiltrates. 3.Status post upper abdominal gastric s urgery as above. [facility]-[id number] Procedure Note [facility], Radiology Results Incoming - 03/18/2019 10:38 AM CONFIGURATOR EXAMINATION: CT ANGIOGRAM PE CHEST CLINICAL HISTORY: tachycardia and recent surgery rule out PE TECHNIQUE: PE PROTOCOL: CT angiographic images of the chest were obtained during intravenous administration of iodinated contrast. Computerized reformatted images and 3-D MIP images were also obtained and archived (CT pulmonary embolus protocol). CT imaging was performed with iterative reconstruction technique and/or automated exposure control to reduce radiation dose. COMPARISON: No prior IMPRESSION: CHEST: 1. Pulmonary Arteries: No definite CT sc an evidence of acute pulmonary embolus. Mildly enlarged measuring 3.6 cm. 2. Aorta: The thoracic aorta is nonaneur ysmal 3. Heart: The heart is marginal in size. 4. Pericardial Fluid: Tiny 5. Mediastinum: No enlarged mediastinal or hilar lymphadenopathy. No mediastinal mass. 4. Airways: Central airways are patent. 5. Lungs: Lower lobe atelectasis, left g reater than right with small right and [id number] left pleural effusion. Minimal biapical pleural and parenchymal scarring. No focal infiltrates. Pulmonary vasculature is within normal limits. 6. Pleural Fluid: Small right and small- to-moderate left pleural effusions. 7. Bones: Degenerative changes of the os seous structures. No suspicious lesions. 8. Upper Abdomen: History of recent abdo otto surgery. Postsurgical changes associated with the stomach with nasogastric tube, gastrostomy tube and left upper quadrant catheter at the margin of the [id number]. Mild anasarca. Minimal air in the soft tissues of the left flank from recent surgery. 9. Other Findings: None SUMMARY: 1.No CT scan evidence of acute pulmonary embolus. Pulmonary artery hypertension. 2.Bibasilar atelectasis and effusions, l eft greater than right. No focal infiltrates. 3.Status post upper abdominal gastric lopez rgery as above. [facility]-[id number] Performing Organization Address City/[facility]/[place] [address] * Nicotine and cotinine, serum (03/16/2019 3:52 AM CONFIGURATOR) Pathologist [facility] Nicotine <2.0 0.0 - 1.9 ng/mL [facility] Cotinine <2.0 0.0 - 1.9 ng/mL [facility] Comment: [place] This test was developed and HOSPITAL its performance characteristics determined by the Department of Pathology and Genomic Medicine, [facility]. Serum nicotine and metabolite cotinine are tested by HPLC tandem mass spectrometry. It has not been cleared or approved by FDA. The laboratory is regulated under CLIA as qualified to perform high-complexity testing. This test is used for clinical purposes. It should not be regarded as investigational or for research. Specimen Blood Performing Organization Address City/State/ZIP Code P kelechi Number [facility] [place] [address] PATHOLOGY AND GENOMIC MEDICINE [address] * Airway (03/15/2019 8:21 PM CONFIGURATOR) Narrative Performed At Herbie Lopez MD 03/15/2019 8:22 P M Airway Date/Time: 03/15/2019 8:06 PM Performed by: Herbie Lopez MD Authorized by: Herbie Lopez MD Location: OR Urgency: Elective Difficult Airway: No Anesthesiologist: Herbie Lopez MD Performed by: anesthesiologist Preoxygenated with 100% O2: Yes Mask Ventilation: Not attempted Final Airway Type: Endotracheal airwa y Final Endotracheal Airway: ETT Cuffed: Yes Technique Used: Direct laryngoscopy Devices/Methods Used in Placement: In tubating stylet Insertion Site: Oral Blade Type: Nata Laryngoscope Blade/Videolaryngoscope Bl merrill Size: 3 ETT Size (mm): 7.0 Placement Verified by: CO2 detection, d irect visualization and equal breath sounds Laryngoscopic view: Grade IIa - parti al view of glottis Rapid Sequence Induction (RSI): Yes Modified RSI: No Number of Attempts at Approach: 1 * CRITICAL CARE (03/15/2019 11:35 AM CONFIGURATOR) Narrative Performed At Miguel Celeste MD 03/15/2019 7:03 PM Critical Care Performed by: Miguel Celeste MD Authorized by: Miguel Celeste MD Critical care provider statement: Critical care time (minutes): 95 Critical care time was exclusive of: Separately billable procedures and treating other patients Critical care was necessary to treat or prevent imminent or life-threatening deterioration of the f ollowing conditions: Dehydration, sepsis, shock and circulatory failure Critical care was time spent personal ly by me on the following activities: Development of treatment plan with patient or surrogate, discussions with primary provider, eval uation of patient's response to treatment, examination of patient, obta ining history from patient or surrogate, re-evaluation of patient's c ondition, pulse oximetry, ordering and review of radiographic studies, ord ering and review of laboratory studies, ordering and performing treatm ents and interventions and discussions with consultants Hiro 'yes' if you are taking over cri tical care for this patient from another provider.: no after 01/04/2019 Insurance Type Payer Benefit Subscriber ID Effective Phone Address Plan / Dates Group Medicare MEDICARE MEDICARE [id number] 2013-P [place], PART A AND resent [place] B HMO KARELY CHANG [id number] 2011-P ACCESS/NET resent WORK Frank FRANK LOYOLA [id number] 2019-P MAIN resent (Work) Advance Directives For more information, please contact: [phone] 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 Explanation Type Date Recorded Advance Directives, 07/27/2018 3:01 PM Living Will and Medical Power of Stunt Person Advance Directives, 07/27/2018 3:01 PM Living Will and Medical Power of Stunt Person Advance Directives, 02/17/2017 7:05 AM Living Will and Medical Power of Stunt Person Advance Directives, 12/05/2017 10:57 AM Living Will and Medical Power of Stunt Person Advance Directives, 07/27/2018 1:19 PM Living Will and Medical Power of Stunt Person Advance Directives, 03/15/2019 10:45 AM Living Will and Medical Power of Stunt Person Advance Directives, 08/06/2019 10:54 PM Living Will and Medical Power of Stunt Person Advance Directives, 09/13/2019 3:40 PM Living Will and Medical Power of Stunt Person POA 08/12/18 Advance Directives, 12/30/2019 2:53 PM Living Will and Medical Power of Stunt Person
--- OUTSIDE RECORDS SUMMARY | 2020-01-05 06:05 | XMS REPORT | Continuity of Care Document ---
Author Author [facility] t Organization [facility] Address [address] [place] [address] Phone Unavailable Care Team Providers Care Construction Coordinator Name Role Phone Concha DEWITT, Halima PCP Salinas DEWITT, Ray Attphys Cristino DEWITT, Bonnie Gaona Attphys Concepción DEWITT, Anant Attphys Alexia DEWITT, Anna Attphys Mary DEWITT, Sheryl Portillo Attphys Patricia DEWITT, Lele Hardy Attphys Chuck DEWITT, Deepali Silva Attphys [phone] Stepan DEWITT, Chidi Attphys Shayna DEWITT, Bri Attphys Margret DEWITT, Bonnie Telles Attphys Casie INFORMATION RESOURCES DIRECTOR, Radha Attphys Aravind DEWITT, Carlyn Campoverde Attphys Neville DEWITT, Luis Angel Adams Attphys Jason DEWITT, Stefani Attphys Roselyn DEWITT, Irvin eLon Attphys Sammi DEWITT, Juan Ma Attphys [phone] Adelaida DEWITT, Melvin Attphys Meenakshi Briceno Attphys Baldo DEWITT, Janiya Carlson Attphys [phone] Booker DEWITT, H Miguel Attphys Ruben DEWITT, Dorota Arusha Attphys Tim DEWITT, Errol Majed Attphys Aria Franz Attphys [...] Date S emilee MEDICAREMEDICARE PART A AND [id number] 2013-PresentHOUS [place], [place] [id number] 2013 00:00:00 Clarence Hanks CIGNACIGNA OPEN ACCESS/[id number] 2011-PresentHMO [id number] 2011 00:00:00 Clarence Hanks KINDREDKINDRED [id number] 2019-PresentKindred [id number] 2019 00:00:00 Clarence Hanks Problems Condition Name [...] surgery Disease Active 2019-10-05 00:00:00 [place] [facility] Anasarca Anasarca Disease Active 2019-10-05 00:00:00 Clarence [...] Physical deconditioning Disease Active 2019-03-28 00:00:00 Clarence joeda Hospital-acquired pneumonia Hospital-acquired pneumonia Disease Active 2019-03-27 [...] iew: Added automatically from request for surgery [id number] Clarence Hanks Perforated abdominal viscus Perforated abdominal viscus Disease Active 2019-03-15 00:00:00 Clarence Hanks GENERALIZED ANXIETY DISORDER Condition Active 2019-02-21 00:00:00 2019-02-21 19:33:47 Meenakshi Briceno [facility] DEPRESSIVE DISORDER, MAJOR, SINGLE EPISODE, MILD Condi tion Active 2019-02-21 00:00:00 2019-02-21 19:33:47 Meenakshi Briceno [facility] RA (rheumatoid arthritis) RA (rheumatoid [...] a Disease Active 2018-07-27 00:00:00 [place] Rotator cuff tendonitis, left Rotator cuff tendonitis, [...] Active 2018-03-24 00:00:00 Overview: T12 [place] [facility] Marginal ulcer Marginal ulcer Disease Active 2018-01-09 [...] 2019-06-23 14:01:23 2019-06-23 14:01 :23 reviewed today [facility] social history E&M 2019-06-23 14:01:23 2019-06-23 14:01:23 ed. , once, has one adult son who lives close by and another daughter who lives in [place]. for 35 yrs. City: [facility]. State: [place]. 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 [facility] drug use, illicit 2019-06-23 14:01:23 2019-06-23 14:01:23 Never [facility] alcohol use 2019-06-23 14:01:23 2019-06-23 14:01:23 Currently [facility] if the patient is using/has used a vapin g item, Current, Former, Never Used, Not asked 2019-06-23 14:01:23 2019-06-23 14:01:23 No L [facility]ly [facility] family support 2019-02-08 14:40:20 2019-02-08 14:40:20 , once, has one adult son who lives close by and another daughter who lives in [place]. for 35 yrs. [facility] home/family situation, assessment 2019-02-08 14:40:20 2019-02-08 14:40:20 lives by herself [facility] Alcohol Comment 2018-07-27 00:00:00 2018-07-27 00:00:00 Rarely. [...] % ointment 2019-12-27 00:00:00 2020-01-26 23:59:00 Yes Q.[id number] Apply topically 3 (three) times a day [...] 2020-01-26 23:59:00 Yes Esophageal abnormality .5mg Q.33 [id number] Take 2.5 mL (0.5 mg total) by [...] n 2019-11-05 00:00:00 2019-12-27 00:00:00 No 4mL Q.[id number] Take 4 mL by nebulization every 6 (six) hours while awake. Clarence Hanks BUMETanide (BUMEX) 0.25 mg/mL injection 00:00:00 2019-12-27 00:00:00 No .5mg Q.5D Infuse 2 mL (0 .5 mg total) into a venous catheter 2 (two) times a day. Clarence Hanks zinc oxide-cod liver oil (DESITIN) 40 % paste 20 10-11-13 00:00:00 2019-12-27 00:00:00 No Q.[id number] Ap ply topically 3 (three) times a [...] difficult to arouse (POSS GREATER than 3).). Clarence Hanks OLANZapine zydis (ZyPREXA) 5 MG [...] Max Daily Amount: 4 tablets [place] methocarbamol (ROBAXIN) 500 MG tablet 2019-03-29 00:00 [...] By Mouth As Needed daily for anxiety [facility] (MIRTAZAPINE) 45 MG TABS 2019-02-08 00:00:00 Yes Manjula zaid Briceno 1{Tablet} 1xD Take 1 tablet By Mouth QHS [facility] (DOXEPIN HCL) 10 MG CAPS 2019-02-08 00:00:00 2019-06-23 00 :00:00 No Meenakshi Briceno 1{Capsule} 1xD Take 1 capsule By Mouth [facility] ZOLOFT (SERTRALINE HCL) 100 MG TABS 2019-02-08 00:00:0 0 2019-06-23 00:00:00 No Meenakshi Briceno 1{Tablet} 1xD Take 1 tablet By Mouth [facility] ondansetron (ZOFRAN) 4 MG tablet 2019-02-03 00:00:00 [...] Hanks pulse rate 2019-02-08 14:40:20 121 /min [facility] blood pressure, diastolic 2019-02-08 14:40:20 70 mm[Hg] [facility] blood pressure, systolic 2019-02-08 14:40:20 97 mm[Hg] [facility] weight E&M 2019-02-08 14:40:20 116.38 [lb_av] [facility] weight in kilograms E&M 2019-02-08 14:40:20 52.90 kg [facility] height in centimeters E&M 2019-02-08 14:40:20 165.10 cm [facility] Procedures Procedure Date / Time Performed Performing Clinician Sourc e POC GLUCOSE 2019-12-27 12:04:00 Jimenez Carr [facility] COMPLETE BLD COUNT W/AUTO DIFF 2019-12-27 05:00:00 Franklin Carr B NATRIURETIC PEPTIDE 2019-12-27 05:00:00 Jimenez Carr [facility] POC GLUCOSE 2019-12-27 04:52:00 Jimenez Carr [facility] BASIC METABOLIC PANEL 2019-12-27 04:00:00 Jimenez [facility] MAGNESIUM LEVEL 2019-12-27 04:00:00 Jimenez Carr Met [...] COUNT W/AUTO DIFF 2019-12-26 05:20:00 Franklin Carr [facility] B NATRIURETIC PEPTIDE 2019-12-26 05:20:00 Jimenez [facility] BASIC METABOLIC PANEL 2019-12-26 04:00:00 Jimenez Carr [facility] MAGNESIUM LEVEL 2019-12-26 04:00:00 Jimenez Carr Met [...] COUNT W/AUTO DIFF 2019-12-25 05:00:00 Franklin Carr [facility] B NATRIURETIC PEPTIDE 2019-12-25 05:00:00 Jimenez Carr [facility] POC GLUCOSE 2019-12-25 04:11:00 Jimenez Carr Met [facility] BASIC METABOLIC PANEL 2019-12-25 04:00:00 Jimenez [facility] MAGNESIUM LEVEL 2019-12-25 04:00:00 Jimenez Carr Met [...] VW PORTABLE 2019-12-24 08:45:00 Robyn Pacheco [facility] HC COMPLETE BLD COUNT W/AUTO DIFF 2019-12-24 05:12:00 Franklin Carr [facility] BASIC METABOLIC PANEL 2019-12-24 05:12:00 Jimenez [facility] MAGNESIUM LEVEL 2019-12-24 05:12:00 Jimenez Carr [facility] B NATRIURETIC PEPTIDE 2019-12-24 05:12:00 Jimenez Carr [facility] ESTIMATED GFR 2019-12-24 05:12:00 Jimenez Carr [facility] POC GLUCOSE 2019-12-24 00:27:00 Jimenez Carr Met [facility] POC GLUCOSE 2019-12-23 20:42:00 Jimenez Carr Met [facility] POC GLUCOSE 2019-12-23 17:30:00 Jimenez Carr Met [facility] POC GLUCOSE 2019-12-23 12:03:00 Jimenez Carr Met [facility] POC GLUCOSE 2019-12-23 09:00:00 Jimenez Carr Met [facility] POC GLUCOSE 2019-12-23 05:20:00 Jimenez Carr [facility] HC COMPLETE BLD COUNT W/AUTO DIFF 2019-12-23 04:15:00 Franklin Carr [facility] BASIC METABOLIC PANEL 2019-12-23 04:15:00 Jimenez [facility] MAGNESIUM LEVEL 2019-12-23 04:15:00 Jimenez Carr [facility] B NATRIURETIC PEPTIDE 2019-12-23 04:15:00 Jimenez Carr [facility] ESTIMATED GFR 2019-12-23 04:15:00 Jimenez Carr Met [facility] POC GLUCOSE 2019-12-22 20:56:00 Jimenez Carr Met [facility] POC GLUCOSE 2019-12-22 16:58:00 Jimenez Carr Met [facility] POC GLUCOSE 2019-12-22 11:44:00 Jimenez Carr Met [facility]ist FL MODIFIED BARIUM SWALLOW 2019-12-22 10:31:23 Junior Robyn Boone [facility]id [facility] POC GLUCOSE 2019-12-22 07:28:00 Jimenez Carr Met [facility] HC COMPLETE BLD COUNT W/AUTO DIFF 2019-12-22 03:55:00 Franklin Carr [facility] BASIC METABOLIC PANEL 2019-12-22 03:55:00 Jimenez Carr [facility] MAGNESIUM LEVEL 2019-12-22 03:55:00 Jimenez Carr Met [facility] B NATRIURETIC PEPTIDE 2019-12-22 03:55:00 Jimenez Carr [facility] ESTIMATED GFR 2019-12-22 03:55:00 Jimenez Carr Met [facility] POC GLUCOSE 2019-12-21 21:07:00 Jimenez Carr Met [facility] POC GLUCOSE 2019-12-21 17:39:00 Jimenez Carr Met [facility] POC GLUCOSE 2019-12-21 11:29:00 Jimenez Carr [facility] PROTEIN, TOTAL 2019-12-21 08:05:00 Josiah Rdz [facility] POC GLUCOSE 2019-12-21 07:26:00 Jimenez Carr [facility] POC GLUCOSE 2019-12-21 03:56:00 Jimenez Carr Met [facility] POC GLUCOSE 2019-12-20 21:12:00 Jiemnez Carr Met [facility] POC GLUCOSE 2019-12-20 18:59:00 Jimenez Carr Met [facility] POC GLUCOSE 2019-12-20 12:28:00 Jimenez Carr Met [facility] POC GLUCOSE 2019-12-20 07:20:00 Jimenez Carr Met [facility] BASIC METABOLIC PANEL 2019-12-20 05:25:00 Manjinder Lopez [facility] HC COMPLETE BLD COUNT W/AUTO DIFF 2019-12-20 05:25:00 Myah Lopez [facility] MAGNESIUM LEVEL 2019-12-20 05:25:00 BiowCjgavi Mendez odist [...] 1 VW PORTABLE 2019-12-19 07:13:38 BiowManjinder on [facility] BASIC METABOLIC PANEL 2019-12-19 03:55:00 Biow, Manjinder Kiser n [facility] HC COMPLETE BLD COUNT W/AUTO DIFF 2019-12-19 03:55:00 Myah Lopez [facility] MAGNESIUM LEVEL 2019-12-19 03:55:00 BioManjinder padilla Meth odist PHOSPHORUS LEVEL 2019-12-19 03:55:00 Mnajinder Lopez Met [facility] TOTAL IRON BINDING CAPACITY 2019-12-19 03:55:00 Jimenez Carr ESTIMATED GFR 2019-12-19 03:55:00 Luke Sparks Meth odist POC GLUCOSE 2019-12-18 22:14:00 Jimenez Carr Met [facility] TRANSFUSE RED BLOOD CELLS 2019-12-18 20:56:19 Jimenez Carr [facility] POC GLUCOSE 2019-12-18 18:01:00 Jimenez Carr Met [facility] TRANSFUSE RED BLOOD CELLS 2019-12-18 16:38:04 Jimenez Carr [facility] US CHEST 2019-12-18 14:47:17 Jimenez Carr Met [facility] POC GLUCOSE 2019-12-18 11:17:00 Jimenez Carr Met [facility] ECG 12-LEAD 2019-12-18 09:03:29 Shira Butts Meth odist POC GLUCOSE 2019-12-18 07:40:00 Jimenez Carr [facility] XR CHEST 1 VW PORTABLE 2019-12-18 06:38:29 BiowManjinder [facility] PREPARE RBC 2019-12-18 06:00:00 Jimenez Carr Met [facility] BASIC METABOLIC PANEL 2019-12-18 04:00:00 BiowManjinder [facility] HC COMPLETE BLD COUNT W/AUTO DIFF 2019-12-18 04:00:00 Myah Lopez [facility] MAGNESIUM LEVEL 2019-12-18 04:00:00 Manjinder Lopez odist [...] COUNT W/AUTO DIFF 2019-12-17 03:00:00 Franky Lewis [facility] MAGNESIUM LEVEL 2019-12-17 00:00:00 Hemal Kaur Me [...] 1 VW PORTABLE 2019-12-16 06:15:54 BiowManjinder on [facility] POC GLUCOSE 2019-12-16 04:55:00 Jimenez Carr Met [facility] MAGNESIUM LEVEL 2019-12-16 04:50:00 Hemal Kaur Me thodist PHOSPHORUS LEVEL 2019-12-16 04:50:00 Hemal Kaur ethodist HC COMPLETE BLD COUNT W/AUTO DIFF 2019-12-16 04:50:00 Franky Lewis [facility] BASIC METABOLIC PANEL 2019-12-16 04:50:00 Phi Lewis ESTIMATED GFR 2019-12-16 04:50:00 Luke Sparks Meth odist POC GLUCOSE 2019-12-16 00:31:00 Jimenez Carr Met h[facility]ist POC GLUCOSE 2019-12-15 20:55:00 Jimenez Carr Met [facility]ist POC GLUCOSE 2019-12-15 17:15:00 Jimenez Carr Met [facility] ECG 12-LEAD 2019-12-15 12:10:45 BenjamínShira Clarence Meth odist POC GLUCOSE 2019-12-15 12:07:00 Jimenez Carr Met hodist FL MODIFIED BARIUM SWALLOW 2019-12-15 11:15:24 Robyn Pacheco [facility] HEMOGLOBIN & HEMATOCRIT 2019-12-15 08:35:00 TaffePhi villeda [...] 1 VW PORTABLE 2019-12-14 09:00:00 Josiah Rdz [facility] POC GLUCOSE 2019-12-14 04:53:00 Jimenez Carr Met [facility] HC COMPLETE BLD COUNT W/AUTO DIFF 2019-12-14 04:25:00 Franky Lewis COMPREHENSIVE METABOLIC PANEL 2019-12-14 04:25:00 Phi Lewis [facility] ESTIMATED GFR 2019-12-14 04:25:00 Luke Sparks Meth odist POC GLUCOSE 2019-12-14 01:13:00 Jimenez Carr Met h[facility]ist POC GLUCOSE 2019-12-13 21:15:00 Jimenez Carr Met [facility] POC GLUCOSE 2019-12-13 17:14:00 Jimenez Carr Met [facility] XR CHEST 1 VW PORTABLE 2019-12-13 13:59:48 Josiah Harper fernandaellen [facility] POC GLUCOSE 2019-12-13 11:49:00 Jimenez Carr Met [facility] RESPIRATORY CULTURE 2019-12-13 11:21:00 Jimenez Carr [facility] FUNGUS CULTURE 2019-12-13 11:21:00 Jimenez Carr Met h[facility] AFB CULTURE 2019-12-13 11:21:00 Jimenez Carr Met [facility] AFB STAIN 2019-12-13 11:21:00 Jimenez Carr Met [facility] FUNGUS SMEAR 2019-12-13 11:21:00 Jimenez Carr Met [facility] XR CHEST 1 VW PORTABLE 2019-12-13 10:05:08 Robyn Pacheco [facility] CONSULT TO OSTOMY CARE NURSE 2019-12-13 08:52:18 Robyn Pacheco [facility] POC GLUCOSE 2019-12-13 08:06:00 Jimenez Carr Met [facility] POC GLUCOSE 2019-12-13 04:37:00 Jimenez Carr Met [facility] HC COMPLETE BLD COUNT W/AUTO DIFF 2019-12-13 03:00:00 Franklin Carr [facility] COMPREHENSIVE METABOLIC PANEL 2019-12-13 03:00:00 Jimenez Carr [...] COMPREHENSIVE METABOLIC PANEL 2019-12-11 03:00:00 Jimenez Carr [facility] PREALBUMIN LEVEL 2019-12-11 03:00:00 Jimenez Carr Me [...] PORTABLE 2019-12-10 13:15:04 Junior Robyn Dre [facility] POC GLUCOSE 2019-12-10 11:40:00 Jimenez Carr Met [facility] POC GLUCOSE 2019-12-10 07:53:00 Jimenez Carr Met [facility] POC GLUCOSE 2019-12-10 04:43:00 Jimenez Carr Met [facility] COMPREHENSIVE METABOLIC PANEL 2019-12-10 03:30:00 Oyewole, Odetteso la Roxanna [facility] ESTIMATED GFR 2019-12-10 03:30:00 Luke Sparks Meth odist PROTHROMBIN TIME WITH INR 2019-12-10 03:00:00 Oyewkeny, Chyna F olnakia [facility] PARTIAL THROMBOPLASTIN TIME (PTT) 2019-12-10 03:00:00 Oyewole, Nguyen desola Roxanna [facility] ARTERIAL BLOOD GAS 2019-12-10 03:00:00 Oyewole, Chyna Roxanna [facility] HC COMPLETE BLD COUNT W/AUTO DIFF 2019-12-10 03:00:00 Jose Carrillo [facility] POC GLUCOSE 2019-12-10 00:39:00 Jimenez Carr Met [facility] POC GLUCOSE 2019-12-09 21:16:00 Jimenez Carr Met [facility] POC GLUCOSE 2019-12-09 16:33:00 Jimenez Carr Met h[facility] HC COMPLETE BLD COUNT W/AUTO DIFF 2019-12-09 16:24:00 Oyewole, A desola Roxanna [facility] POC GLUCOSE 2019-12-09 13:50:00 Jimenez [address] [facility]ist CT CHEST WO CONTRAST 2019-12-09 10:55:[address] SOFT TISSUE NECK WO CONTRAST 2019-12-09 10:54:53 BioManjinder padilla [facility] POC GLUCOSE 2019-12-09 08:34:00 Jimenez Carr Met h[facility]ist POC GLUCOSE 2019-12-09 04:57:00 Jimenez Carr Met [facility] BASIC METABOLIC PANEL 2019-12-09 03:55:00 Josiah Rdz HC COMPLETE BLD COUNT W/AUTO DIFF 2019-12-09 03:55:00 Josiah Alvarez MAGNESIUM LEVEL 2019-12-09 03:55:00 Josiah Rdz PHOSPHORUS LEVEL 2019-12-09 03:55:00 Josiah Rdzto n [facility] PARTIAL THROMBOPLASTIN TIME (PTT) 2019-12-09 03:55:00 Kevin Méndez PROTHROMBIN TIME WITH INR 2019-12-09 03:55:00 Kevin Méndez ESTIMATED GFR 2019-12-09 03:55:00 Luke Sparks odist ARTERIAL BLOOD GAS 2019-12-09 03:55:00 Luke Sparks ethodist POC GLUCOSE 2019-12-09 01:20:00 Jimenez Carr Met [facility] ARTERIAL BLOOD GAS 2019-12-08 23:10:00 Carter Rueda [facility] XR CHEST 1 VW PORTABLE 2019-12-08 21:31:13 Carter Rueda [facility] POC GLUCOSE 2019-12-08 21:02:00 Jimenez Carr Met [facility] ARTERIAL BLOOD GAS 2019-12-08 20:15:00 Morris Moss [facility] POC GLUCOSE 2019-12-08 16:31:00 Jimenez Carr Met hodist US DUPLEX VENOUS LOWER EXTREMITY BILATERAL 2019-12-08 14:45:00 W Na mo Clarence [facility] POC GLUCOSE 2019-12-08 12:38:00 Jimenez Carr Met [facility]ist POC GLUCOSE 2019-12-08 08:40:00 Jimenez Carr Met [facility] XR CHEST 1 VW PORTABLE 2019-12-08 06:04:01 Josiah Rdz [facility] POC GLUCOSE 2019-12-08 04:09:00 Jimenez Carr Met hodist HC COMPLETE BLD COUNT W/AUTO DIFF 2019-12-08 03:35:00 Josiah Alvarez MAGNESIUM LEVEL 2019-12-08 03:35:00 Josiah Rdz PHOSPHORUS LEVEL 2019-12-08 03:35:00 Josiah Rdz ESTIMATED GFR 2019-12-08 03:35:00 Luek Sparks odakira COMPREHENSIVE METABOLIC PANEL 2019-12-08 03:35:00 [...] LACTIC ACID LEVEL 2019 21:20:00 Luke Sparks Ks thodist POC GLUCOSE 2019 21:20:00 Jimenez Carr Met hodist ECG 12-LEAD 2019 20:54:58 RuedaCarter [facility] SODIUM LEVEL, SYRINGE 2019 19:39:00 Jimenez Carr [facility] ARTERIAL BLOOD GAS, CORRECTED 2019 19:39:00 Jimenez Carr [facility] HEMOGLOBIN, SYRINGE 2019 19:39:00 Jimenez Carr [facility] POTASSIUM, SYRINGE 2019 19:39:00 Jimenez Carr [facility] GLUCOSE LEVEL, SYRINGE 2019 19:39:00 Jimenez Carr [facility] IONIZED CALCIUM, ARTERIAL 2019 19:39:00 Jimenez Carr [facility] HEMATOCRIT 2019 19:39:00 Jimenez Carr Met h[facility]ist LACTIC ACID, SYRINGE 2019 19:39:00 Jimenez Carr [facility] PROTHROMBIN TIME WITH INR 2019 19:39:00 Jimenez Carr PLATELET COUNT 2019 19:39:00 Jimenez Carr Met [facility] FIBRINOGEN 2019 19:39:00 Jimenez Carr Met [facility] ARTERIAL BLOOD GAS, CORRECTED 2019 18:16:00 Jimenez Carrist HEMOGLOBIN, SYRINGE 2019 18:16:00 Jimenez Carr POTASSIUM, SYRINGE 2019 18:16:00 Jimenez Carrist SODIUM LEVEL, SYRINGE 2019 18:16:00 Jimenez Carr [facility] IONIZED CALCIUM, ARTERIAL 2019 18:16:00 Jimenez Carr [facility] GLUCOSE LEVEL, SYRINGE 2019 18:16:00 Jimenez Carr [facility] GA AN ELECTIVE ENDOTRACHEAL AIRWAY 2019 17:55:27 Marjan Garza [facility] ARTERIAL LINE 2019 17:52:07 Marjan Mcguire [facility] ARTERIAL BLOOD GAS, CORRECTED 2019 16:13:00 Jimenez Carr [facility] SODIUM LEVEL, SYRINGE 2019 16:13:00 Jimenez Carr [facility] POTASSIUM, SYRINGE 2019 16:13:00 Jimenez Carr [facility] IONIZED CALCIUM, ARTERIAL 2019 16:13:00 Jimenez Carr [facility] HEMOGLOBIN, SYRINGE 2019 16:13:00 Jimenez Carr [facility] GLUCOSE LEVEL, SYRINGE 2019 16:13:00 Jimenez Carr [facility] FIBRINOGEN 2019 13:56:00 Jimenez Carr Met [facility] PLATELET COUNT 2019 13:56:00 Jimenez Carr Met hodist PROTHROMBIN TIME WITH INR 2019 13:56:00 Jimenez Carr [facility] HEMOGLOBIN & HEMATOCRIT 2019 13:56:00 Jimenez Carr stoneha [facility] ARTERIAL BLOOD GAS, CORRECTED 2019 13:01:00 Jimenez Carr [facility] SODIUM LEVEL, SYRINGE 2019 13:01:00 Jimenez Carr [facility] POTASSIUM, SYRINGE 2019 13:01:00 Jimenez Carr [facility] HEMOGLOBIN, SYRINGE 2019 13:01:00 Jimenez Carr [facility] GLUCOSE LEVEL, SYRINGE 2019 13:01:00 Jimenez Carr [facility] IONIZED CALCIUM, ARTERIAL 2019 13:01:00 Jimenez Carr [facility] TRANSFUSE RED BLOOD CELLS 2019 11:48:18 Anna Hale [facility] GLUCOSE LEVEL, SYRINGE 2019 11:30:00 Jimenez Carr [facility] IONIZED CALCIUM, ARTERIAL 2019 11:30:00 Jimenez Carr [facility] HEMOGLOBIN, SYRINGE 2019 11:30:00 Jimenez Carr [facility] POTASSIUM, SYRINGE 2019 11:30:00 Jimenez Carr [facility] SODIUM LEVEL, SYRINGE 2019 11:30:00 Jimenez Carr [facility] ARTERIAL BLOOD GAS, CORRECTED 2019 11:30:00 Jimenez Carr TRANSFUSE RED BLOOD CELLS 2019 10:25:17 Anna Hale ARTERIAL BLOOD GAS, CORRECTED 2019 10:03:00 Jimenez Carr SODIUM LEVEL, SYRINGE 2019 10:03:00 Jimenez Carr [facility] POTASSIUM, SYRINGE 2019 10:03:00 Jimenez Carr [facility] HEMOGLOBIN, SYRINGE 2019 10:03:00 Jimenez Carr IONIZED CALCIUM, ARTERIAL 2019 10:03:00 Jimenez Carr GLUCOSE LEVEL, SYRINGE 2019 10:03:00 Jimenez Carr [facility] ANAEROBIC CULTURE 2019 09:11:00 Jimenez Carr M [...] LINE 2019 08:36:42 Anna Hale Me thodist GA AN ELECTIVE ENDOTRACHEAL AIRWAY 2019 08:35:38 Anna Hale TYPE AND SCREEN 2019 02:30:00 Robyn Pacheco Meth odist PARTIAL THROMBOPLASTIN TIME (PTT) 2019 02:30:00 Robyn Pacheco BASIC METABOLIC PANEL 2019 02:30:00 Josiah Rdz HC COMPLETE BLD COUNT W/AUTO DIFF 2019 02:30:00 Josiah Alvarez MAGNESIUM LEVEL 2019 02:30:00 Josiah Rdz PHOSPHORUS LEVEL 2019 02:30:00 Josiah Rdz [place] [facility] ESTIMATED GFR 2019 02:30:00 Luke Sparks Meth odist SMEAR REVIEW 2019 02:30:00 [...] CHEST PORTABLE 2019-11-05 14:11:39 Luke Sparks [facility] HC CVL PICC INSERT 5 YRS OR > W/RS&I AND IMG GUID 2019-11-05 12:48:37 Scarlett Weldon HC CATH DUAL LUMEN PICC # [id number] 0035-08-14 12:48:37 Nguyen Weldon POC GLUCOSE 2019-11-05 11:47:00 Luke Sparks Meth odist POC GLUCOSE 2019-11-05 07:43:00 Luke Sparks Meth odist PREALBUMIN LEVEL 2019-11-05 07:19:00 Connor Navarro [facility] ALBUMIN LEVEL 2019-11-05 07:19:00 Connor Navarro [facility] POC GLUCOSE 2019-11-05 03:26:00 Luke Sparks Meth odist XR CHEST 1 VW PORTABLE 2019-11-05 02:43:00 Vesta Stubbs [facility] HC COMPLETE BLD COUNT W/AUTO DIFF 2019-11-05 00:30:00 Jose Millard [facility] BASIC METABOLIC PANEL 2019-11-05 00:30:00 Krystle Landrum MAGNESIUM LEVEL 2019-11-05 00:30:00 Krystle Landrum [facility] PHOSPHORUS LEVEL 2019-11-05 00:30:00 Krystle Landrum [facility] IONIZED CALCIUM 2019-11-05 00:30:00 Vesta Stubbs odist [...] Hanks HC CATH DUAL LUMEN PICC # [id number] 15:36:01 Shiraz Nguyen mayorga Clarence [facility] POC GLUCOSE 2019-11-04 12:18:00 Luke Sparks Meth odist POC GLUCOSE 2019-11-04 07:41:00 Luke Sparks Meth odist XR CHEST 1 VW PORTABLE 2019-11-04 06:31:00 DoVesta on [facility] POC GLUCOSE 2019-11-04 03:48:00 Luke Sparks Meth odist HC COMPLETE BLD COUNT W/AUTO DIFF 2019-11-04 00:41:00 Jose Millard [facility] BASIC METABOLIC PANEL 2019-11-04 00:41:00 Krystle Landrum MAGNESIUM LEVEL 2019-11-04 00:41:00 Krystle Landrum [facility] PHOSPHORUS LEVEL 2019-11-04 00:41:00 Krystle Landrum IONIZED CALCIUM 2019-11-04 00:41:00 Do, Vesta Mendez odist TYPE AND SCREEN 2019-11-04 00:41:00 DoVesta odist ESTIMATED GFR 2019-11-04 00:41:00 DoVesta SMEAR REVIEW 2019-11-04 00:41:00 DoVesta Meth odist HEPATIC FUNCTION PANEL 2019-11-04 00:41:00 DoVesta on [facility] POC GLUCOSE 2019-11-03 23:46:00 Luke Sparks Meth odist POC GLUCOSE 2019-11-03 19:35:00 Luke Sparks Meth odist POC GLUCOSE 2019-11-03 16:01:00 Luke Sparks Meth odist ARTERIAL BLOOD GAS 2019-11-03 13:26:00 Fuentes Lares [facility] POC GLUCOSE 2019-11-03 11:31:00 Luke Sparks Meth odist POC GLUCOSE 2019-11-03 07:30:00 Luke Sparks Meth odist XR CHEST 1 VW PORTABLE 2019-11-03 06:09:00 Jose Millard [place] [facility] POC GLUCOSE 2019-11-03 03:24:00 Luke Sparks Meth odist THYROID STIMULATING HORMONE 2019-11-03 01:08:00 Geva, Jose Young [facility] T4, FREE 2019-11-03 01:08:00 Geva, Jose Obregonjere [facility] Met h[facility]ist BASIC METABOLIC PANEL 2019-11-03 01:08:00 Geva, Jose Erickson [facility] MAGNESIUM LEVEL 2019-11-03 01:08:00 Geva, Jose Obregonjere [facility] PHOSPHORUS LEVEL 2019-11-03 01:08:00 Geva, Jose Obregonjere [facility] Me thodist ESTIMATED GFR 2019-11-03 01:08:00 Gebuddy, Jose Hector [facility] Met [facility] HC COMPLETE BLD COUNT W/AUTO DIFF 2019-11-03 00:00:00 Gebuddy, Jose [facility] SMEAR REVIEW 2019-11-03 00:00:00 Gebuddy, Jose Hector [facility] Met [facility] POC GLUCOSE 2019-11-02 23:44:00 JonathanveranguyenLuke [facility] POC GLUCOSE 2019-11-02 20:31:00 Jonathanveranguyen Luke [facility] POC GLUCOSE 2019-11-02 15:45:00 JonathanveranguyenLuke [facility] MAGNESIUM LEVEL 2019-11-02 14:55:00 Chip Lundberg [facility] PHOSPHORUS LEVEL 2019-11-02 14:55:00 Chip Lundberg [facility] POTASSIUM LEVEL 2019-11-02 14:55:00 Chip Lundberg ethodist POC GLUCOSE 2019-11-02 11:49:00 Jonathanveranguyen Luke [facility] POC GLUCOSE 2019-11-02 07:45:00 Jonathantraci Luke [facility] XR CHEST 1 VW PORTABLE 2019-11-02 07:03:08 Vesta Stubbs on [facility] POC GLUCOSE 2019-11-02 03:43:00 Jonathanveranguyen Luke [facility] BASIC METABOLIC PANEL 2019-11-02 00:30:00 Geva, Jose Erickson on [facility] MAGNESIUM LEVEL 2019-11-02 00:30:00 [facility] 2019-11-02 00:30:00 Geva, Jose Hector [facility] HC COMPLETE BLD COUNT W/AUTO DIFF 2019-11-02 00:30:00 Freeman, Jose Hector [facility] IONIZED CALCIUM 2019-11-02 00:30:00 DoVesta Cla[facility] ESTIMATED GFR 2019-11-02 00:30:00 DoVesta [facility] POC GLUCOSE 2019-11-01 23:45:00 ChiveraaLuke [facility] POC GLUCOSE 2019-11-01 20:07:00 ChiveraaLuke [facility] POC GLUCOSE 2019-11-01 16:45:00 ChiveraaLuke [facility] TRANSFUSE RED BLOOD CELLS 2019-11-01 15:55:21 Elijah Jenkins GA AN ELECTIVE SURGICAL AIRWAY 2019-11-01 14:55:05 Elijah Jenkins INSERTION, GASTROSTOMY TUBE, LAPAROSCOPIC 2019-11-01 14:14:00 Chidi Parisi [facility] POC GLUCOSE 2019-11-01 11:47:00 ChiveraLuke kramer [facility] POC GLUCOSE 2019-11-01 08:17:00 ChiveraLuke kramer [facility] XR CHEST 1 VW PORTABLE 2019-11-01 05:26:52 Gebuddy, Jose Hardy ton [facility] POC GLUCOSE 2019-11-01 03:57:00 ChiveraLuke kramer [facility] BASIC METABOLIC PANEL 2019-11-01 01:52:00 Gebuddy, Jose [facility] MAGNESIUM LEVEL 2019-11-01 01:52:00 Gebuddy, Jose Hector [...] & HEMATOCRIT 2019-10-31 07:42:00 Cristinadona Isabella workman [facility] POTASSIUM LEVEL 2019-10-31 07:09:00 Isabella Tavares Meth [...] TIME (PTT) 2019-10-30 12:00:00 Imtiaznguyen Adam Lima [facility] POC GLUCOSE 2019-10-30 11:36:00 Luke Sparks Meth [...] THROMBOPLASTIN TIME (PTT) 2019-10-29 16:10:00 Yoko Drew [facility] MAGNESIUM LEVEL 2019-10-29 16:00:00 Silvia Drew Meth odist PHOSPHORUS LEVEL 2019-10-29 16:00:00 Silvia Drew Met hodist POTASSIUM LEVEL 2019-10-29 16:00:00 Silvia Drew Meth odist POC GLUCOSE 2019-10-29 15:52:00 Luke Sparks Meth odist POC GLUCOSE 2019-10-29 11:49:00 Luke Sparks Meth odist PARTIAL THROMBOPLASTIN TIME (PTT) 2019-10-29 08:40:00 Tegan Lechuga [facility] POC GLUCOSE 2019-10-29 07:46:00 [place] Luke Clarence Meth odist POC GLUCOSE 2019-10-29 04:29:00 [place] Luke Clarence Meth odist XR CHEST 1 VW PORTABLE 2019-10-29 04:09:00 Elham Fuentes ECG 12-LEAD 2019-10-29 03:36:45 Elham Fuentes on [facility] PARTIAL THROMBOPLASTIN TIME (PTT) 2019-10-29 01:45:00 Timmy Schilling HC COMPLETE BLD COUNT W/AUTO DIFF 2019-10-29 01:45:00 Gavi Landrum BASIC METABOLIC PANEL 2019-10-29 01:45:00 Krystle Landrumist MAGNESIUM LEVEL 2019-10-29 01:45:00 Krystle Landrum [facility] PHOSPHORUS LEVEL 2019-10-29 01:45:00 Krystle Landrum [facility] IONIZED CALCIUM 2019-10-29 01:45:00 Elham Feuntes on [facility] ESTIMATED GFR 2019-10-29 01:45:00 Elham Fuentes on [facility] SMEAR REVIEW 2019-10-29 01:45:00 Elham Fuentes on [facility] POC GLUCOSE 2019-10-28 23:33:00 Luke Sparks Meth odist POC GLUCOSE 2019-10-28 20:27:00 Luke pSarks Meth odist POC GLUCOSE 2019-10-28 16:22:00 Luke Sparks Meth odist POTASSIUM LEVEL 2019-10-28 14:56:00 Chip Lundberg Crista ethodist MAGNESIUM LEVEL 2019-10-28 14:56:00 Chip Lundberg Crista ethodist PHOSPHORUS LEVEL 2019-10-28 14:56:00 Chip Lundberg [facility] POC GLUCOSE 2019-10-28 12:09:00 Luke Sparks Meth odist COVID-19 QUALITATIVE PCR 2019-10-28 09:40:00 Renetta Hartman [facility] POC GLUCOSE 2019-10-28 07:37:00 Luke Sparks Meth odist ECG 12-LEAD 2019-10-28 05:21:30 Elham Fuentes on [facility] XR CHEST 1 VW PORTABLE 2019-10-28 04:04:00 Elham Fuentesist POC GLUCOSE 2019-10-28 03:48:00 Luke Sparks Meth odist BASIC METABOLIC PANEL 2019-10-28 02:23:00 Krystle Landrumist MAGNESIUM LEVEL 2019-10-28 02:23:00 Krystle Landrum [facility] PHOSPHORUS LEVEL 2019-10-28 02:23:00 Krystle Landrum [facility] IONIZED CALCIUM 2019-10-28 02:23:00 Elham Fuentes on [facility] ESTIMATED GFR 2019-10-28 02:23:00 Luke Sparks Meth odist HC COMPLETE BLD COUNT W/AUTO DIFF 2019-10-28 02:05:00 Gavi Landrum PARTIAL THROMBOPLASTIN TIME (PTT) 2019-10-28 02:05:00 Tegan Lechuga [facility] SMEAR REVIEW 2019-10-28 02:05:00 Luke Sparks Meth odist POC GLUCOSE 2019-10-27 23:47:00 Luke Sparks Meth odist POC GLUCOSE 2019-10-27 19:49:00 Luke Sparks Meth odist POC GLUCOSE 2019-10-27 15:35:00 Luke Sparks Meth odist SODIUM LEVEL 2019-10-27 15:24:00 Arnaud Fuentes Blackmon uston [facility] POTASSIUM LEVEL 2019-10-27 15:24:00 Fuentes Lares [facility] POC GLUCOSE 2019-10-27 11:32:00 JonathanveraLuke kramer Clarence Meth odist POC GLUCOSE 2019-10-27 07:30:00 JonathanveranguyenLuke Meth odist XR CHEST 1 VW PORTABLE 2019-10-27 06:50:00 Geva, Jose Hector [place] [facility] POC GLUCOSE 2019-10-27 04:01:00 Luke Sparks Meth odist HC COMPLETE BLD COUNT W/AUTO DIFF 2019-10-27 02:20:00 Gavi Landrum BASIC METABOLIC PANEL 2019-10-27 02:20:00 Krystle Landrum MAGNESIUM LEVEL 2019-10-27 02:20:00 Krystle Landrum [facility] PHOSPHORUS LEVEL 2019-10-27 02:20:00 Krystle Landrum stoneha [facility] PARTIAL THROMBOPLASTIN TIME (PTT) 2019-10-27 02:20:00 Timmy Schilling ESTIMATED GFR 2019-10-27 02:20:00 Luke Sparks Meth odist SMEAR REVIEW 2019-10-27 02:20:00 Luke Sparks Meth odist POC GLUCOSE 2019-10-27 00:19:00 Luke Sparks Meth odist POC GLUCOSE 2019-10-26 19:37:00 ImtiaznguyenLuke Meth odist POC GLUCOSE 2019-10-26 16:09:00 Luke Sparks Meth odist OSMOLALITY, URINE 2019-10-26 15:51:00 Fuentes Lares [facility] POC GLUCOSE 2019-10-26 11:39:00 ImtiaznguyenLuke Meth odist POC GLUCOSE 2019-10-26 07:45:00 Luke Sparks Meth odist XR CHEST 1 VW PORTABLE 2019-10-26 06:22:00 Geva, Jose Hector [place] [facility] POC GLUCOSE 2019-10-26 04:53:00 Luke Sparks Meth odist PARTIAL THROMBOPLASTIN TIME (PTT) 2019-10-26 02:00:00 Timmy Schilling [facility] T4, FREE 2019-10-26 02:00:00 Elvi Butler [facility] HC COMPLETE BLD COUNT W/AUTO DIFF 2019-10-26 02:00:00 Gavi Landrum BASIC METABOLIC PANEL 2019-10-26 02:00:00 Krystle Landrum MAGNESIUM LEVEL 2019-10-26 02:00:00 Krystle Landrum [facility] PHOSPHORUS LEVEL 2019-10-26 02:00:00 Krystle Landrum Kianna ston [facility] ERYTHROPOIETIN 2019-10-26 02:00:00 Hang Li Me [facility] FERRITIN LEVEL 2019-10-26 02:00:00 Hang Li Ks thodist TOTAL IRON BINDING CAPACITY 2019-10-26 02:00:00 Hang Li TYPE AND SCREEN 2019-10-26 02:00:00 Areli Berumen ethodist ESTIMATED GFR 2019-10-26 02:00:00 Hang Li Ks [facility] SMEAR REVIEW 2019-10-26 02:00:00 Hang Li Ks th[facility] POC GLUCOSE 2019-10-25 23:31:00 Luke Sparks [...] 1 VW PORTABLE 2019-10-25 06:36:40 Tarsha Gray [facility] ECG 12-LEAD 2019-10-25 05:29:02 Tarsha Gray Met [facility] POC GLUCOSE 2019-10-25 04:22:00 Luke Sparks Meth odist IMMUNOGLOBULIN E 2019-10-25 02:12:00 Brayden Couch [facility] BASIC METABOLIC PANEL 2019-10-25 02:00:00 Tarsha Gray on [facility] HC COMPLETE BLD COUNT W/AUTO DIFF 2019-10-25 02:00:00 Nash Gray [facility] IONIZED CALCIUM 2019-10-25 02:00:00 Tarsha Gray [facility] MAGNESIUM LEVEL 2019-10-25 02:00:00 Tarsha Gray [facility] PARTIAL THROMBOPLASTIN TIME (PTT) 2019-10-25 02:00:00 Nash Gray [facility] PHOSPHORUS LEVEL 2019-10-25 02:00:00 Tarsha Gray [facility] SEDIMENTATION RATE 2019-10-25 02:00:00 Brayden Couch [facility] ESTIMATED GFR 2019-10-25 02:00:00 Tarsha Gray [facility] SMEAR REVIEW 2019-10-25 02:00:00 Tarsha Gray [facility] PERIPHERAL SMEAR 2019-10-25 02:00:00 Tarsha Gray [facility] POC GLUCOSE 2019-10-24 23:52:00 Luke Sparks Meth odist POC GLUCOSE 2019-10-24 19:49:00 Luke Sparks Meth odist CORTISOL, 60 MINUTES 2019-10-24 17:08:00 Brayden Couch [facility] POC GLUCOSE 2019-10-24 16:03:00 Luke Spraks Meth odist ADRENOCORTICOTROPIC HORMONE 2019-10-24 13:30:00 Marielle Sousa [facility] CORTISOL LEVEL, RANDOM 2019-10-24 12:03:00 Marielle Sousa on [facility] POC GLUCOSE 2019-10-24 11:29:00 Luke Sparks Meth odist POC GLUCOSE 2019-10-24 07:36:00 Luke Sparks Meth odist XR CHEST 1 VW PORTABLE 2019-10-24 06:05:53 Tarsha Gray [facility] POC GLUCOSE 2019-10-24 04:15:00 Luke Sparks Meth odist BASIC METABOLIC PANEL 2019-10-24 04:00:00 Tarsha Gray on [facility] HC COMPLETE BLD COUNT W/AUTO DIFF 2019-10-24 04:00:00 Nash Gray [facility] MAGNESIUM LEVEL 2019-10-24 04:00:00 Tarsha Gray Met [facility] PHOSPHORUS LEVEL 2019-10-24 04:00:00 Tarsha Gray Me th[facility] ESTIMATED GFR 2019-10-24 04:00:00 Tarsha Gray [facility] SMEAR REVIEW 2019-10-24 04:00:00 Tarsha Gray [facility] THYROID PEROXIDASE ANTIBODY 2019-10-24 04:00:00 Brayden Couch [facility] ECG 12-LEAD 2019-10-24 03:12:16 Tarsha Gray Met [facility] POC GLUCOSE 2019-10-24 00:00:00 Luke Sparks Meth odist PARTIAL THROMBOPLASTIN TIME (PTT) 2019-10-23 22:30:00 Tegan Lechuga [facility] POC GLUCOSE 2019-10-23 20:18:00 Luke Sparks Meth odist US DUPLEX VENOUS UPPER EXTREMITY RIGHT 2019-10-23 16:10:00 Brayden Adams [facility] POC GLUCOSE 2019-10-23 15:56:00 Luke Sparks Meth odist PARTIAL THROMBOPLASTIN TIME (PTT) 2019-10-23 15:50:00 Adam Sparks [facility] POC GLUCOSE 2019-10-23 11:46:00 Luke Sparks Meth odist PARTIAL THROMBOPLASTIN TIME (PTT) 2019-10-23 07:56:00 Timmy Schilling [facility] POC GLUCOSE 2019-10-23 07:36:00 Luke Sparks Meth odist XR CHEST 1 VW PORTABLE 2019-10-23 06:48:46 Tarsha Gray [facility] ECG 12-LEAD 2019-10-23 04:52:21 Marina Tarsha Lima Met [facility] POC GLUCOSE 2019-10-23 04:17:00 Luke Sparks Meth odist BASIC METABOLIC PANEL 2019-10-23 01:04:00 Marina Tarsha Erickson on [facility] HC COMPLETE BLD COUNT W/AUTO DIFF 2019-10-23 01:04:00 Nash Gray [facility] IONIZED CALCIUM 2019-10-23 01:04:00 Tarsha Gray Met [facility] MAGNESIUM LEVEL 2019-10-23 01:04:00 Lance Grayia Clarence Met h[facility]ist PARTIAL THROMBOPLASTIN TIME (PTT) 2019-10-23 01:04:00 Nash Gray [facility] PHOSPHORUS LEVEL 2019-10-23 01:04:00 Tarsha Gray Me [...] LEVEL, RANDOM 2019-10-22 09:29:00 Silvia Drew on [facility] POC GLUCOSE 2019-10-22 07:22:00 Luke Sparks Meth odakira XR CHEST 1 VW PORTABLE 2019-10-22 06:34:42 Jose Milalrdhe Hayley ton [facility] POC GLUCOSE 2019-10-22 04:02:00 Luke Sparks Meth odist PARTIAL THROMBOPLASTIN TIME (PTT) 2019-10-22 00:25:00 Adam Sparks HC COMPLETE BLD COUNT W/AUTO DIFF 2019-10-22 00:25:00 Do, Peg Hanks BASIC METABOLIC PANEL 2019-10-22 00:25:00 Do, Vesta Kiser n [facility] ARTERIAL BLOOD GAS 2019-10-22 00:25:00 DoVesta ethodist MAGNESIUM LEVEL 2019-10-22 00:25:00 DoVesta odist PHOSPHORUS LEVEL 2019-10-22 00:25:00 DoVesta hodakira TYPE AND SCREEN 2019-10-22 00:25:00 DoVesta odist ESTIMATED GFR 2019-10-22 00:25:00 Do, Vesta Mendez odist IONIZED CALCIUM, ARTERIAL 2019-10-22 00:25:00 DoVesta SMEAR REVIEW 2019-10-22 00:25:00 DoVesta Meth odist POC GLUCOSE 2019-10-21 23:52:00 Luke Sparks Meth odist HEMOGLOBIN & HEMATOCRIT 2019-10-21 19:54:00 Coty Saleh [facility] POC GLUCOSE 2019-10-21 19:54:00 Luke Sparks Meth odist CLOSTRIDIUM DIFFICILE TOXIN 2019-10-21 17:45:00 Danny Pretty [facility] IONIZED CALCIUM 2019-10-21 17:15:00 Coty Saleh ethodist [...] 1 VW PORTABLE 2019-10-20 06:25:00 Dinh Lee [facility] POC GLUCOSE 2019-10-20 04:21:00 SalinasLuke Clarence Mendez odist BASIC METABOLIC PANEL 2019-10-20 00:48:00 Dinh Lee HC COMPLETE BLD COUNT W/AUTO DIFF 2019-10-20 00:48:00 JesusDinh claros [facility] MAGNESIUM LEVEL 2019-10-20 00:48:00 JesusDinh claros [facility] PHOSPHORUS LEVEL 2019-10-20 00:48:00 Dinh Lee [facility] HEPATIC FUNCTION PANEL 2019-10-20 00:48:00 Jaxon Blair ARTERIAL BLOOD GAS 2019-10-20 00:48:00 DoVesta ethodist PARTIAL THROMBOPLASTIN TIME (PTT) 2019-10-20 00:48:00 Adam Sparks ESTIMATED GFR 2019-10-20 00:48:00 DoVesta IONIZED CALCIUM, ARTERIAL 2019-10-20 00:48:00 Vesta Stubbs SMEAR REVIEW 2019-10-20 00:48:00 Vesta Stubbs odist POC GLUCOSE 2019-10-20 00:04:00 [place] Luke Lima Meth odist PARTIAL THROMBOPLASTIN TIME (PTT) 2019-10-19 22:14:00 Tegan Lechuga [facility] POC GLUCOSE 2019-10-19 19:38:00 Luke Sparks Meth odist NM HEPATOBILIARY 2019-10-19 18:02:01 Evelia Coleman hodist XR CHEST 1 VW PORTABLE 2019-10-19 15:40:00 Chip Lundberg [facility] HC CVL NON-TUNNELED INSERT 5YRS OR > 2019-10-19 15:28:58 Priyank Orta [facility] POC GLUCOSE 2019-10-19 11:52:00 ChiveraaLuke Meth odist PARTIAL THROMBOPLASTIN TIME (PTT) 2019-10-19 11:15:00 Adam Sparks [facility] POC GLUCOSE 2019-10-19 11:13:00 Luke Sparks Meth odist US HEPATIC 2019-10-19 10:35:19 Evelia Coleman Meth od[facility] POC GLUCOSE 2019-10-19 08:31:00 ChiveraaLuke Meth odist HEPATIC FUNCTION PANEL 2019-10-19 08:12:00 Evelia Coleman on [facility] POC GLUCOSE 2019-10-19 04:18:00 Luke Sparks Meth odist BASIC METABOLIC PANEL 2019-10-19 04:10:00 Dinh Lee [facility] HC COMPLETE BLD COUNT W/AUTO DIFF 2019-10-19 04:10:00 Dinh Lee MAGNESIUM LEVEL 2019-10-19 04:10:00 Dinh Lee PHOSPHORUS LEVEL 2019-10-19 04:10:00 Dinh Lee [facility] PARTIAL THROMBOPLASTIN TIME (PTT) 2019-10-19 04:10:00 Adam Sparks ESTIMATED GFR 2019-10-19 04:10:00 Luke Sparks Meth odist ARTERIAL BLOOD GAS 2019-10-19 04:10:00 Areli Berumen [facility] SMEAR REVIEW 2019-10-19 04:10:00 Luke Sparks Meth odist XR CHEST 1 VW PORTABLE 2019-10-19 01:41:00 JesusDinh claros [facility] POC GLUCOSE 2019-10-19 00:20:00 Luke Sparks Meth odist POC GLUCOSE 2019-10-18 20:14:00 Luke Sparks Meth odist ARTERIAL BLOOD GAS 2019-10-18 17:56:00 Chip Lundberg [facility] BASIC METABOLIC PANEL 2019-10-18 17:55:00 Chip Lundberg [facility] ESTIMATED GFR 2019-10-18 17:55:00 Chip Lundberg ethodist MAGNESIUM LEVEL 2019-10-18 17:55:00 Chip Lundberg ethodist PHOSPHORUS LEVEL 2019-10-18 17:55:00 Chip Lundberg [facility] POC GLUCOSE 2019-10-18 17:15:00 Luke Sparks Meth odist POC GLUCOSE 2019-10-18 12:22:00 Luke Sparks Meth odist XR CHEST 1 VW PORTABLE 2019-10-18 09:55:00 Robyn Pacheco on [facility] CONSULT TO OSTOMY CARE NURSE 2019-10-18 08:14:51 Garry De La Rosa [facility] POC GLUCOSE 2019-10-18 08:13:00 Luke Sparks Meth odist XR CHEST 1 VW PORTABLE 2019-10-18 06:25:34 Dinh Lee [facility] POC GLUCOSE 2019-10-18 03:46:00 Luke Sparks Meth odist PARTIAL THROMBOPLASTIN TIME (PTT) 2019-10-18 03:00:00 Adam Sparks [facility] BASIC METABOLIC PANEL 2019-10-18 01:31:00 Dinh Lee [facility] HC COMPLETE BLD COUNT W/AUTO DIFF 2019-10-18 01:31:00 Dinh Lee [facility] MAGNESIUM LEVEL 2019-10-18 01:31:00 Dinh Lee [facility] PHOSPHORUS LEVEL 2019-10-18 01:31:00 Dinh Lee [facility] ARTERIAL BLOOD GAS 2019-10-18 01:31:00 Areli Berumen [facility] TYPE AND SCREEN 2019-10-18 01:31:00 Areli Berumen ethodist ESTIMATED GFR 2019-10-18 01:31:00 ImtiazLuke kramer Clarence Meth odist SMEAR REVIEW 2019-10-18 01:31:00 Luke Sparks Clarence Meth odist PREPARE RBC 2019-10-18 01:31:00 Do Vesta Nguyen iLma Meth odist POC GLUCOSE 2019-10-18 01:10:00 Luke Sparks Clarence Meth odist PARTIAL THROMBOPLASTIN TIME (PTT) 2019-10-17 20:57:00 Tegan Lechuga [facility] POTASSIUM, SYRINGE 2019-10-17 20:57:00 Areli Berumen n [facility] POC GLUCOSE 2019-10-17 20:31:00 Imtiaznguyen Luke Mendez odist SPUTUM CULTURE 2019-10-17 20:29:00 Nile Boucher GRAM STAIN 2019-10-17 20:29:00 Nile Boucher POC GLUCOSE 2019-10-17 15:50:00 Imtiaznguyen Luke Mendez odakira HC COMPLETE BLD COUNT W/AUTO DIFF 2019-10-17 13:53:00 Camron Moss BASIC METABOLIC PANEL 2019-10-17 13:53:00 Morris Moss on [facility] ESTIMATED GFR 2019-10-17 13:53:00 Morris Moss Met [...] odakira ANAEROBIC CULTURE 2019-10-17 09:32:00 Cesar Bryant Ks thodist POC GLUCOSE 2019-10-17 07:40:00 Luke Sparks odist TRANSFUSE RED BLOOD CELLS 2019-10-17 06:53:40 Areli Berumen XR CHEST 1 VW PORTABLE 2019-10-17 05:17:31 Areli Berumen [place] [facility] POC GLUCOSE 2019-10-17 04:18:00 Luke Sparks odist [...] ARTERIAL BLOOD GAS 2019-10-17 02:13:00 Areli Berumen [facility] POC GLUCOSE 2019-10-17 00:27:00 Luke Sparks odist POC GLUCOSE 2019-10-16 20:13:[address] HEAD WO CONTRAST 2019-10-16 17:50:[address] [facility] [address] CHEST WO CONTRAST ABDOMEN WO CONTRAST PELVIS WO CONTRAST 2019-10-16 17:50:07 Dinh Lee [facility] POC GLUCOSE 2019-10-16 15:39:00 Luke Sparks Meth odist POC GLUCOSE 2019-10-16 11:36:00 Luke Sparks Meth odist POC GLUCOSE 2019-10-16 07:32:00 Luke Sparks Meth odist XR CHEST 1 VW PORTABLE 2019-10-16 05:16:47 Robyn Pacheco on [facility] POC GLUCOSE 2019-10-16 04:33:00 Luke Sparks Meth odist PARTIAL THROMBOPLASTIN TIME (PTT) 2019-10-16 02:00:00 Tegan Lechuga CBC HEMOGRAM 2019-10-16 02:00:00 Latmarquez, Areli Lima M ethodist BASIC METABOLIC PANEL 2019-10-16 02:00:00 Ata, Areli Kianna ston [facility] MAGNESIUM LEVEL 2019-10-16 02:00:00 Latmarquez, Areli Lima M ethodist ARTERIAL BLOOD GAS 2019-10-16 02:00:00 Latmarquez, Areli Hardyto n [facility] ESTIMATED GFR 2019-10-16 02:00:00 Latmarquez, Areli Lima [...] 2019-10-15 15:30:00 Rebekah hughes Dinh Li Lima [facility] WOUND VAC PLACEMENT 2019-10-15 13:47:45 Jesus Dinh Gee ejssica Clarence [facility] POC GLUCOSE 2019-10-15 11:42:00 SalinasLuke Meth odist XR CHEST 1 VW PORTABLE 2019-10-15 10:40:00 Robyn Pacheco on [facility] POTASSIUM LEVEL 2019-10-15 08:30:00 ChitraciLuke Meth odist DIGOXIN LEVEL 2019-10-15 08:30:00 ImtiazLuke kramer Lima Meth odist POC GLUCOSE 2019-10-15 07:35:00 SalinasLuke Lima Meth odist XR CHEST 1 VW PORTABLE 2019-10-15 06:22:00 Dong Roy on [facility] ECG 12-LEAD 2019-10-15 05:11:03 Dong Roy odist BASIC METABOLIC PANEL 2019-10-15 00:30:00 Dong Roy [facility] PHOSPHORUS LEVEL 2019-10-15 00:30:00 Dong Roy hodist [...] ethodist PHOSPHORUS LEVEL 2019-10-14 10:40:00 Chip Lundberg [facility] IONIZED CALCIUM 2019-10-14 10:40:00 Chip Lundberg ethodist XR CHEST 1 VW PORTABLE 2019-10-14 10:00:00 Robyn Pacheco on [facility] POC GLUCOSE 2019-10-14 07:57:00 [place] Luke Lima Meth odist POC GLUCOSE 2019-10-14 03:46:00 [place] Luke Lima Meth odist ECG 12-LEAD 2019-10-14 03:16:11 Dong Roy odist XR CHEST 1 VW PORTABLE 2019-10-14 02:21:00 Dong Roy on [facility] MAGNESIUM LEVEL 2019-10-14 00:35:00 Chip Lundberg ethodist BASIC METABOLIC PANEL 2019-10-14 00:35:00 Dong Roy n [facility] PHOSPHORUS LEVEL 2019-10-14 00:35:00 Dong Roy hodist [...] THYROID STIMULATING HORMONE 2019-10-13 18:15:00 Chip Lundberg [facility] POTASSIUM LEVEL 2019-10-13 18:15:00 Chip Lundberg ethodist MAGNESIUM LEVEL 2019-10-13 18:15:00 Chip Lundberg ethodist PHOSPHORUS LEVEL 2019-10-13 18:15:00 Chip Lundberg [facility] POC GLUCOSE 2019-10-13 16:03:00 Luke Sparks Lima Meth odist POC GLUCOSE 2019-10-13 11:48:00 Jonathanveranguyen Luke Mendez odist XR CHEST 1 VW PORTABLE 2019-10-13 10:40:00 Luke Sparks on [facility] MAGNESIUM LEVEL 2019-10-13 10:29:00 Chip Lundberg ethodist PHOSPHORUS LEVEL 2019-10-13 10:29:00 Chip Lundberg IONIZED CALCIUM 2019-10-13 10:29:00 Chip Lundberg ethodist POTASSIUM LEVEL 2019-10-13 10:29:00 Chip Lundberg ethodist TRACHEOSTOMY 2019-10-13 07:59:00 Bri Corral Clarence Meth odist POC GLUCOSE 2019-10-13 07:31:00 JonathanveraLuke kramer Clarence Mendez odist XR CHEST 1 VW PORTABLE 2019-10-13 05:24:00 Dong Roy [facility] ECG 12-LEAD 2019-10-13 04:44:14 Dong Roy odist POC GLUCOSE 2019-10-13 03:53:00 [place] Luke Lima Meth odist MAGNESIUM LEVEL 2019-10-13 01:34:00 AnushaIsabella Clarence Meth odist BASIC METABOLIC PANEL 2019-10-13 01:31:00 Dong Roy ESTIMATED GFR 2019-10-13 01:31:00 Dong Roy odist PHOSPHORUS LEVEL 2019-10-13 01:31:00 Dong Roy ARTERIAL BLOOD GAS 2019-10-13 01:23:00 RoyDong HC COMPLETE BLD COUNT W/AUTO DIFF 2019-10-13 01:23:00 Gavi oRy PROTHROMBIN TIME WITH INR 2019-10-13 01:23:00 Dong [...] OSTOMY CARE NURSE 2019-10-12 08:59:26 Catherine Lechuga [facility] POC GLUCOSE 2019-10-12 07:50:00 Luke Sparks Meth [...] QUALITATIVE PCR 2019-10-11 16:13:00 Bri Corral ston [facility] POC GLUCOSE 2019-10-11 11:29:00 Luke Sparks Meth odist POC GLUCOSE 2019-10-11 07:43:00 JonathanLuke aviles Meth odist XR CHEST 1 VW PORTABLE 2019-10-11 05:47:24 Tarsha Gray [facility] ECG 12-LEAD 2019-10-11 05:15:05 Tarsha Gray Met hodist POC GLUCOSE 2019-10-11 03:59:00 [place] Luke Mendez odist BASIC METABOLIC PANEL 2019-10-11 00:52:00 Tarsha Gray [facility] HC COMPLETE BLD COUNT W/AUTO DIFF 2019-10-11 00:52:00 Nash Gray [facility] IONIZED CALCIUM 2019-10-11 00:52:00 Tarsha Gray Met hodist MAGNESIUM LEVEL 2019-10-11 00:52:00 Tarsha Gray Met hodist PHOSPHORUS LEVEL 2019-10-11 00:52:00 Tarsha Gray Me thodist PROTHROMBIN TIME WITH INR 2019-10-11 00:52:00 Tarsha Gray [facility] ESTIMATED GFR 2019-10-11 00:52:00 Tarsha Gray Met hodist ARTERIAL BLOOD GAS 2019-10-11 00:52:00 Tarsha Gray [facility] POC GLUCOSE 2019-10-10 23:39:00 [place] Luke Mendez odist XR ABDOMEN 1 VW PORTABLE 2019-10-10 19:56:43 Tarsha Grayton [facility] POC GLUCOSE 2019-10-10 19:26:00 [place] Luke Lima Meth odist POC GLUCOSE 2019-10-10 15:42:00 SalinasLuke Clarence Meth odist CBC HEMOGRAM 2019-10-10 14:39:00 Coty Saleh ethodist POC GLUCOSE 2019-10-10 11:43:00 Luke Sparks Meth odist POC GLUCOSE 2019-10-10 07:23:00 Luke Sparks Meth odist XR CHEST 1 VW PORTABLE 2019-10-10 05:52:31 Tarsha Gray [facility] POC GLUCOSE 2019-10-10 04:00:00 Luke Sparks Meth odist ECG 12-LEAD 2019-10-10 03:21:15 Tarsha Gray Met hodist BASIC METABOLIC PANEL 2019-10-10 01:20:00 Tarsha Gray on [facility] IONIZED CALCIUM 2019-10-10 01:20:00 Tarsha Gray Met hodist MAGNESIUM LEVEL 2019-10-10 01:20:00 Tarsha Gray Met hodist PHOSPHORUS LEVEL 2019-10-10 01:20:00 Tarsha Gray Me thodist ESTIMATED GFR 2019-10-10 01:20:00 Tarsha Gray Met hodist CREATINE KINASE, TOTAL (CPK) 2019-10-10 01:20:00 Zac Gray HC COMPLETE BLD COUNT W/AUTO DIFF 2019-10-10 00:45:00 Nash Gray PROTHROMBIN TIME WITH INR 2019-10-10 00:45:00 Tarsha Gray [facility] TYPE AND SCREEN 2019-10-10 00:45:00 Tarsha Gray [...] VW PORTABLE 2019-10-09 06:24:37 Dong Roy on [facility] ECG 12-LEAD 2019-10-09 04:29:31 Dong Roy Meth odist POC GLUCOSE 2019-10-09 03:57:00 Luke Sparks Meth odist ARTERIAL BLOOD GAS 2019-10-09 02:05:00 Dong Roy HC COMPLETE BLD COUNT W/AUTO DIFF 2019-10-09 02:05:00 Gavi Roy [facility] BASIC METABOLIC PANEL 2019-10-09 02:05:00 Dong Roy n [facility] MAGNESIUM LEVEL 2019-10-09 02:05:00 Dong Roy odist PHOSPHORUS LEVEL 2019-10-09 02:05:00 Dong Roy hodakira PROTHROMBIN TIME WITH INR 2019-10-09 02:05:00 Dong Roy [facility] PARTIAL THROMBOPLASTIN TIME (PTT) 2019-10-09 02:05:00 Gavi Roy [facility] IONIZED CALCIUM, ARTERIAL 2019-10-09 02:05:00 Dong Roy [facility] ESTIMATED GFR 2019-10-09 02:05:00 Dong Roy Meth odist POC GLUCOSE 2019-10-08 23:55:00 Luke Sparks Meth odist POC GLUCOSE 2019-10-08 23:09:00 Luke Sparks Meth odist HEMOGLOBIN & HEMATOCRIT 2019-10-08 22:00:00 Renetta Hartman [place] [facility] POC GLUCOSE 2019-10-08 21:59:00 Luke Sparks [facility] POC GLUCOSE 2019-10-08 21:05:00 Luke Sparks [facility] POC GLUCOSE 2019-10-08 19:55:00 Luke Sparks [facility] ECG 12-LEAD 2019-10-08 19:29:35 Coty Saleh [facility] POC GLUCOSE 2019-10-08 18:48:00 JonathanveraLuke kramer [facility] XR CHEST 1 VW PORTABLE 2019-10-08 18:31:03 Coty Saleh [facility] ARTERIAL BLOOD GAS 2019-10-08 18:20:00 Coty Saleh [...] CELLS 2019-10-08 15:38:15 Nayeli Solo Neymar cowartjacinta [facility] O2 SATURATION, VENOUS 2019-10-08 14:55:00 Luke Sparks [facility] SODIUM LEVEL, SYRINGE 2019-10-08 14:55:00 Luke Sparks [facility] VENOUS BLOOD GAS, CORRECTED 2019-10-08 14:55:00 Luke Sparks [facility] POTASSIUM, SYRINGE 2019-10-08 14:55:00 Luke Sparks [facility]ist HEMOGLOBIN, SYRINGE 2019-10-08 14:55:00 Luke Sparks GLUCOSE LEVEL, SYRINGE 2019-10-08 14:55:00 Luke Sparks [facility] IONIZED CALCIUM, VENOUS 2019-10-08 14:55:00 Luke Sparks [facility] TRANSFUSE RED BLOOD CELLS 2019-10-08 14:34:43 Dendeena Nayeli holman [facility] SODIUM LEVEL, SYRINGE 2019-10-08 14:19:00 Luke Sparks [facility] POTASSIUM, SYRINGE 2019-10-08 14:19:00 Luke Sparks M [facility] HEMOGLOBIN, SYRINGE 2019-10-08 14:19:00 Luke Sparks GLUCOSE LEVEL, SYRINGE 2019-10-08 14:19:00 Luke Sparks [facility] IONIZED CALCIUM, VENOUS 2019-10-08 14:19:00 Luke Sparks [facility] VENOUS BLOOD GAS, CORRECTED 2019-10-08 14:19:00 Luke Sparks SURGICAL PATHOLOGY REQUEST 2019-10-08 13:59:00 Luke Sparks [facility] POTASSIUM, SYRINGE 2019-10-08 13:41:00 Luke Sparks M [facility] SODIUM LEVEL, SYRINGE 2019-10-08 13:41:00 Luke Sparks [facility] GLUCOSE LEVEL, SYRINGE 2019-10-08 13:41:00 Luke Sparks on [facility] HEMOGLOBIN, SYRINGE 2019-10-08 13:41:00 Luke Sparks IONIZED CALCIUM, VENOUS 2019-10-08 13:41:00 Luke Sparks VENOUS BLOOD GAS, CORRECTED 2019-10-08 13:41:00 Luke Sparks PROTHROMBIN TIME WITH INR 2019-10-08 13:41:00 Luke Sparks [facility] FIBRINOGEN 2019-10-08 13:41:00 Luke Sparks [facility] [...] SODIUM LEVEL, SYRINGE 2019-10-08 12:57:00 Luke Sparks [facility] HEMOGLOBIN, SYRINGE 2019-10-08 12:57:00 Luke Sparks IONIZED CALCIUM, ARTERIAL 2019-10-08 12:57:00 Luke Sparks [facility] GLUCOSE LEVEL, SYRINGE 2019-10-08 12:57:00 Luke Sparks on [facility] POC GLUCOSE 2019-10-08 09:30:00 Luke Sparks [facility] POC GLUCOSE 2019-10-08 04:29:00 Luke Sparks [facility] XR CHEST 1 VW PORTABLE 2019-10-08 03:59:00 Areli Berumen [facility] ARTERIAL BLOOD GAS 2019-10-08 02:08:00 Areli Berumen [facility] HC COMPLETE BLD COUNT W/AUTO DIFF 2019-10-08 02:00:00 Robyn Pacheco BASIC METABOLIC PANEL 2019-10-08 02:00:00 Robyn Pacheco [facility] MAGNESIUM LEVEL 2019-10-08 02:00:00 Robyn Pacheco [facility] PHOSPHORUS LEVEL 2019-10-08 02:00:00 Robyn Pacheco [facility] PARTIAL THROMBOPLASTIN TIME (PTT) 2019-10-08 02:00:00 Robyn Pacheco PROTHROMBIN TIME WITH INR 2019-10-08 02:00:00 Robyn Pacheco ESTIMATED GFR 2019-10-08 02:00:00 Robyn Pacheco [facility] POC GLUCOSE 2019-10-08 00:22:00 Luke Sparks [facility] PARTIAL THROMBOPLASTIN TIME (PTT) 2019-10-07 21:25:00 Evelia Coleman [facility] POC GLUCOSE 2019-10-07 21:04:00 Luke Sparks [facility] POC GLUCOSE 2019-10-07 17:16:00 Luke Sparks [facility] POC GLUCOSE 2019-10-07 11:45:00 Luke Sparks [facility] PARTIAL THROMBOPLASTIN TIME (PTT) 2019-10-07 08:40:00 Adam Sparks [facility] POC GLUCOSE 2019-10-07 08:29:00 Luke Sparks [facility] XR CHEST 1 VW PORTABLE 2019-10-07 03:58:00 Areli Berumen [facility] POC GLUCOSE 2019-10-07 03:53:00 Luke Sparks [facility] POC GLUCOSE 2019-10-07 02:01:00 Luke Sparks [facility] BASIC METABOLIC PANEL 2019-10-07 00:41:00 Areli Berumen [facility] ARTERIAL BLOOD GAS 2019-10-07 00:41:00 Areli Berumen [facility] CBC HEMOGRAM 2019-10-07 00:41:00 Areli Berumen M ethodist MAGNESIUM LEVEL 2019-10-07 00:41:00 LatiffAreli ethodist ESTIMATED GFR 2019-10-07 00:41:00 LatAreli zayas ethodist PARTIAL THROMBOPLASTIN TIME (PTT) 2019-10-07 00:41:00 Cassidy Berumen [facility] POC GLUCOSE 2019-10-06 20:00:00 Luke Sparks Meth odakira URINE CULTURE 2019-10-06 16:25:00 Fuentes Lares SODIUM LEVEL, URINE, RANDOM 2019-10-06 16:25:00 Fuentes Lares CREATININE LEVEL, URINE, RANDOM 2019-10-06 16:25:00 Alan Lares [facility] UREA NITROGEN, URINE, RANDOM 2019-10-06 16:25:00 Fuentes Lares URINALYSIS SCREEN AND MICROSCOPY, WITH REFLEX TO CULTURE 202 16:25:00 Fuentes Lares [facility] POC GLUCOSE 2019-10-06 15:35:00 Luke Sparks Meth odist PARTIAL THROMBOPLASTIN TIME (PTT) 2019-10-06 15:10:00 Adam Sparks COVID-19 QUALITATIVE PCR 2019-10-06 14:00:00 Robyn Pacheco POC GLUCOSE 2019-10-06 11:36:00 Luke Sparks odakira US DUPLEX VENOUS UPPER EXTREMITY LEFT 2019-10-06 11:30:00 Dinh Birch [facility] US DUPLEX VENOUS LOWER EXTREMITY BILATERAL 2019-10-06 11:00: 00 Dinh Lee [place] [facility] CHEST WO CONTRAST 2019-10-06 10:15:08 Dinh Lee PARTIAL THROMBOPLASTIN TIME (PTT) 2019-10-06 08:20:00 Evelia Coleman [facility] POC GLUCOSE 2019-10-06 07:36:00 Luke Sparks Meth [facility] ECG 12-LEAD 2019-10-06 05:29:31 Tolu Goldman [facility] XR CHEST 1 VW PORTABLE 2019-10-06 05:06:00 Jones Tolu Kushal Kianna Hanks ARTERIAL BLOOD GAS 2019-10-06 04:46:00 Tolu Goldman POC GLUCOSE 2019-10-06 04:03:00 [place] Luke Mendez odist IONIZED CALCIUM 2019-10-06 02:30:00 Ata Areli Epstein ethodist BASIC METABOLIC PANEL 2019-10-06 01:40:00 Areli Berumen [facility] MAGNESIUM LEVEL 2019-10-06 01:40:00 LatCassidy zayasnahum Epstein [...] GAS 2019-10-05 21:38:00 Latiff, Areli Hardyto n [facility] HEMOGLOBIN, SYRINGE 2019-10-05 21:38:00 Latiff, Areli Hardyt on [facility] POTASSIUM, SYRINGE 2019-10-05 21:38:00 Latiff, Areli Hardyto n [facility] CHLORIDE LEVEL, SYRINGE 2019-10-05 21:38:00 Latiff, Areli rosadoston [facility] SODIUM LEVEL, SYRINGE 2019-10-05 21:38:00 Latiff, Areli Blcakmonu ston [facility] POC GLUCOSE 2019-10-05 19:59:00 Luke Sparks Meth [...] Sparks TTE LIMITED, WO CONTRAST, W DOPPLER ([id number]) 2019-10-05 14:56:23 Evelia Coleman XR CHEST 1 [...] SODIUM LEVEL, SYRINGE 2019-10-05 12:51:00 Luke Sparks [facility] GLUCOSE LEVEL, SYRINGE 2019-10-05 12:51:00 Luke Saprks on [facility] [place] > 1 HOUR 2019-10-05 12:40:00 Evelia Coleman [facility] ARTERIAL LINE 2019-10-05 12:35:11 Roselyn Edward Irvin [place] [facility] GLUCOSE LEVEL, SYRINGE 2019-10-05 12:34:00 Luke Sparks on [facility] IONIZED CALCIUM, ARTERIAL 2019-10-05 12:34:00 Luke Sparks [facility] HEMOGLOBIN, SYRINGE 2019-10-05 12:34:00 Luke Sparks [facility] POTASSIUM, SYRINGE 2019-10-05 12:34:00 Luke Sparks ethodist SODIUM LEVEL, SYRINGE 2019-10-05 12:34:00 Luke Sparks n [facility] ARTERIAL BLOOD GAS, CORRECTED 2019-10-05 12:34:00 Luke Sparks [facility] ACTIVATED CLOTTING TIME 2019-10-05 12:32:00 Luke Sparks [facility] GLUCOSE LEVEL, SYRINGE 2019-10-05 12:16:00 Luke Sparks on [facility] IONIZED CALCIUM, ARTERIAL 2019-10-05 12:16:00 Luke Sparks [facility] POTASSIUM, SYRINGE 2019-10-05 12:16:00 Luke Sparks ethodist HEMOGLOBIN, SYRINGE 2019-10-05 12:16:00 Luke Sparks [facility] SODIUM LEVEL, SYRINGE 2019-10-05 12:16:00 Luke Sparks n [facility] ARTERIAL BLOOD GAS, CORRECTED 2019-10-05 12:16:00 Luke Sparks [facility] ACTIVATED CLOTTING TIME 2019-10-05 12:15:00 Luke Sparks [facility] ARTERIAL BLOOD GAS, CORRECTED 2019-10-05 10:58:00 Luke Sparks [facility] SODIUM LEVEL, SYRINGE 2019-10-05 10:58:00 Luke Sparks n [facility] POTASSIUM, SYRINGE 2019-10-05 10:58:00 Luke Sparks ethodist IONIZED CALCIUM, ARTERIAL 2019-10-05 10:58:00 Luke Sparks HEMOGLOBIN, SYRINGE 2019-10-05 10:58:00 Luke Sparks GLUCOSE LEVEL, SYRINGE 2019-10-05 10:58:00 Luke Sparks on [facility] ARTERIAL BLOOD GAS, CORRECTED 2019-10-05 10:35:00 Luke Sparks SODIUM LEVEL, SYRINGE 2019-10-05 10:35:00 Luke Sparks POTASSIUM, SYRINGE 2019-10-05 10:35:00 Luke Sparks M ethodist HEMOGLOBIN, SYRINGE 2019-10-05 10:35:00 Luke Sparks IONIZED CALCIUM, ARTERIAL 2019-10-05 10:35:00 Luke Sparks LACTIC ACID, SYRINGE 2019-10-05 10:35:00 Luke Sparks GLUCOSE LEVEL, SYRINGE 2019-10-05 10:35:00 Luke Sparks on [facility] TRANSFUSE RED BLOOD CELLS 2019-10-05 09:18:03 Edward [...] VW PORTABLE 2019-10-04 06:15:47 Latiff Cassidybrittanymoisés cowartton [facility] POC GLUCOSE 2019-10-04 04:01:00 Luke Sparks Meth [facility] ARTERIAL BLOOD GAS 2019-10-04 02:30:00 LatCassidy zayasjignastephy solomon [facility] BASIC METABOLIC PANEL 2019-10-04 02:30:00 Latiff Ramiromoisés Hutchison ston [facility] CBC HEMOGRAM 2019-10-04 02:30:00 SylAreli zayas M ethodist MAGNESIUM LEVEL 2019-10-04 02:30:00 Latiff, Areli [place] [facility] ESTIMATED GFR 2019-10-04 02:30:00 Latiff, Areli [place] [facility] POC GLUCOSE 2019-10-04 00:17:00 Luke Sparks Meth [facility] POC GLUCOSE 2019-10-03 20:07:00 Luke Sparks Meth odist IONIZED CALCIUM, ARTERIAL 2019-10-03 19:53:00 LatiffAreli [facility] POTASSIUM LEVEL 2019-10-03 19:30:00 LatiffAreli M ethodist MAGNESIUM LEVEL 2019-10-03 19:30:00 Latiff, Areli [place] [facility] POC GLUCOSE 2019-10-03 16:14:00 Luke Sparks Meth [facility] HEMOGLOBIN & HEMATOCRIT 2019-10-03 12:17:00 Tolu Goldman [facility] VANCOMYCIN LEVEL, RANDOM 2019-10-03 12:17:00 Sam Garcia [facility] POC GLUCOSE 2019-10-03 11:44:00 Luke Sparks [place] [facility] POC GLUCOSE 2019-10-03 08:30:00 Luke Sparks Meth odist TRANSFUSE RED BLOOD CELLS 2019-10-03 06:48:53 Areli Berumen [facility] XR CHEST 1 VW PORTABLE 2019-10-03 05:12:53 Areli Berumen jacinta [facility] POC GLUCOSE 2019-10-03 04:13:00 Luke Sparks odist COVID-19 QUALITATIVE PCR 2019-10-03 02:00:00 Robyn Pacheco Kianna gallardo [facility] BASIC METABOLIC PANEL 2019-10-03 01:48:00 Areli Berumen Kianna gallardo [facility] MAGNESIUM LEVEL 2019-10-03 01:48:00 Areli Berumen ethodist [...] VANCOMYCIN LEVEL, RANDOM 2019-10-02 10:00:00 Renetta Hartman [facility] POTASSIUM LEVEL 2019-10-02 10:00:00 JonesTolu [place] [facility] MAGNESIUM LEVEL 2019-10-02 10:00:00 Jones Tolu Kushal [place] [facility] PHOSPHORUS LEVEL 2019-10-02 10:00:00 JonesTolu [place] M [facility] SODIUM LEVEL 2019-10-02 10:00:00 JonesTolu [place] [facility] IONIZED CALCIUM, ARTERIAL 2019-10-02 10:00:00 Tolu Goldman [facility] POC GLUCOSE 2019-10-02 07:58:00 Luke Sparks Meth odist POC GLUCOSE 2019-10-02 04:56:00 Luke Sparks odist XR CHEST 1 VW PORTABLE 2019-10-02 03:26:16 Latiff, Areli Blackmon [place] [facility] BASIC METABOLIC PANEL 2019-10-02 02:15:00 Latiff, Areli gallardo [facility] MAGNESIUM LEVEL 2019-10-02 02:15:00 Latiff, Areli Epstein ethodist ESTIMATED GFR 2019-10-02 02:15:00 Latiff, Areli Epstein ethodist CBC HEMOGRAM 2019-10-02 01:35:00 Latiff, Areli Epstein ethodist ARTERIAL BLOOD GAS 2019-10-02 01:35:00 Latiff, Areli Kiser n [facility] PREPARE RBC 2019-10-02 01:25:00 Latiff, Areli Epstein ethodist POC GLUCOSE 2019-10-02 00:30:00 Luke Sparks Meth [facility] POC GLUCOSE 2019-10-01 20:42:00 Luke Sparks Meth odist URINE CULTURE 2019-10-01 17:15:00 SutariaFuentes [facility] SODIUM LEVEL, URINE, RANDOM 2019-10-01 17:15:00 AngelariaFuentes arabrendon [place] [facility] POTASSIUM, URINE, RANDOM 2019-10-01 17:15:00 SutariaFuentes [facility] CHLORIDE LEVEL, URINE, RANDOM 2019-10-01 17:15:00 SutariaFuentestkumar [place] [facility] URINALYSIS SCREEN AND MICROSCOPY, WITH REFLEX TO CULTURE 202 17:15:00 Fuentes Larestkumar Clarence [facility] POC GLUCOSE 2019-10-01 15:35:00 Luke Sparks Meth odist XR CHEST 1 VW PORTABLE 2019-10-01 15:25:00 Robyn Pacheco [facility] POC GLUCOSE 2019-10-01 11:35:00 Luke Sparks Meth od[facility] GENERAL 2019-10-01 11:23:04 Robyn Pacheco Meth odist VANCOMYCIN LEVEL, TROUGH 2019-10-01 10:18:00 Renetta Hartman [facility] POC GLUCOSE 2019-10-01 07:30:00 Luke Sparks Meth odist XR CHEST 1 VW PORTABLE 2019-10-01 06:04:00 Do, Vesta Erickson on [facility] POC GLUCOSE 2019-10-01 04:19:00 Luke Sparks Meth odist BASIC METABOLIC PANEL 2019-10-01 01:34:00 Do, Vesta Hanks HC COMPLETE BLD COUNT W/AUTO DIFF 2019-10-01 01:34:00 Do, Peg [place] [facility] MAGNESIUM LEVEL 2019-10-01 01:34:00 Do, Vesta [place] [facility] PHOSPHORUS LEVEL 2019-10-01 01:34:00 Do, Vesta [place] Met [facility] ARTERIAL BLOOD GAS 2019-10-01 01:34:00 Do, Vesta Epstein ethodist IONIZED CALCIUM, ARTERIAL 2019-10-01 01:34:00 Do, Vesta cowartton [facility] ESTIMATED GFR 2019-10-01 01:34:00 Do, Vesta [place] [facility] POC GLUCOSE 2019-10-01 00:08:00 JonathanveraLuke kramer [facility] POC GLUCOSE 2019-09-30 20:01:00 JonathanveraLuke kramer Meth odist XR CHEST 1 VW PORTABLE 2019-09-30 17:06:12 Robyn Pacheco on [facility] POC GLUCOSE 2019-09-30 16:05:00 JonathanveraLuke kramer Meth od[facility] POC GLUCOSE 2019-09-30 12:31:00 ImtiazLuke kramer Meth odist GENERAL 2019-09-30 12:22:58 Robyn Pacheco Meth od[facility] ARTERIAL BLOOD GAS 2019-09-30 08:25:00 Renetta Hartman [facility] LACTIC ACID LEVEL 2019-09-30 08:05:00 Renetta Hartman [facility] POC GLUCOSE 2019-09-30 07:34:00 Imtiaznguyen Luke [place] [facility] XR CHEST 1 VW PORTABLE 2019-09-30 06:14:00 DoVesta on [facility] POC GLUCOSE 2019-09-30 03:53:00 Imtiaznguyen Luke [place] [facility] HC COMPLETE BLD COUNT W/AUTO DIFF 2019-09-30 01:19:00 Do, Peg Hanks BASIC METABOLIC PANEL 2019-09-30 01:19:00 Do, Vesta solomon [facility] ARTERIAL BLOOD GAS 2019-09-30 01:19:00 Do, Vesta Epstein ethodist MAGNESIUM LEVEL 2019-09-30 01:19:00 DoVesta Meth odist PHOSPHORUS LEVEL 2019-09-30 01:19:00 Do, Vesta Collier hodakira IONIZED CALCIUM, ARTERIAL 2019-09-30 01:19:00 Do, Vesta holman [facility] ESTIMATED GFR 2019-09-30 01:19:00 Do, Vesta [place] [facility] POC GLUCOSE 2019-09-29 23:49:00 Luke Sparks Meth odist POC GLUCOSE 2019-09-29 19:51:00 Luke Sparks Meth od[facility] POC GLUCOSE 2019-09-29 15:28:00 Luke Sparks Meth odist XR CHEST 1 VW PORTABLE 2019-09-29 14:57:33 Robyn Pacheco [facility] POC GLUCOSE 2019-09-29 11:33:00 Luke Sparks Meth odist GENERAL 2019-09-29 10:22:08 Robyn Pacheco Meth odist POC GLUCOSE 2019-09-29 07:31:00 Luke Sparks Meth odist POC GLUCOSE 2019-09-29 04:36:00 Luke Sparks Meth odist XR CHEST 1 VW PORTABLE 2019-09-29 04:29:00 Gary De La Rosa [facility] BASIC METABOLIC PANEL 2019-09-29 02:00:00 LatAreli zayas [facility] MAGNESIUM LEVEL 2019-09-29 02:00:00 Latmarquez Areli [place] Crista ethodist ESTIMATED GFR 2019-09-29 02:00:00 Areli Berumen Crsita ethodist ARTERIAL BLOOD GAS 2019-09-29 01:35:00 Areli Berumen [facility] CBC HEMOGRAM 2019-09-29 01:35:00 Ata Areli Clarence Epstein ethodist POC GLUCOSE 2019-09-29 00:24:00 Luke Sparks Meth [facility]ist VANCOMYCIN LEVEL, TROUGH 2019-09-28 20:10:00 Stephani Jane [facility] POC GLUCOSE 2019-09-28 20:04:00 Luke Sparks Meth od[facility] POC GLUCOSE 2019-09-28 15:17:00 Luke Sparks Meth odist XR CHEST 1 VW PORTABLE 2019-09-28 14:25:00 Robyn Pacheco on [facility] POC GLUCOSE 2019-09-28 11:37:00 Luke Sparks Meth odist GENERAL 2019-09-28 10:41:54 Robyn Pacheco Meth odist VANCOMYCIN LEVEL, TROUGH 2019-09-28 10:30:00 TammyearleneKoryMorris Barbara epstein [place] [facility] POC GLUCOSE 2019-09-28 07:31:00 JonathanveraLuke kramer Meth od[facility] XR CHEST 1 VW PORTABLE 2019-09-28 06:12:41 Gary De La Rosa [facility] POC GLUCOSE 2019-09-28 05:24:00 JonathanveraLuke kramer Meth [facility] BASIC METABOLIC PANEL 2019-09-28 01:13:00 LatiffAreli [facility] MAGNESIUM LEVEL 2019-09-28 01:13:00 Latiff, Areli Epstein ethodist ESTIMATED GFR 2019-09-28 01:13:00 LatiffAreli ethodist PHOSPHORUS LEVEL 2019-09-28 01:13:00 Areli Berumen [facility] CBC HEMOGRAM 2019-09-28 00:23:00 Areli Berumen ethodist ARTERIAL BLOOD GAS 2019-09-28 00:23:00 LatiffAreliaugusto n [facility] TYPE AND SCREEN 2019-09-28 00:23:00 LatiffAreli ethodist POC GLUCOSE 2019-09-27 23:59:00 JonathanveraLuke kramer [facility] POC GLUCOSE 2019-09-27 20:27:00 Luke Sparks Meth od[facility] POC GLUCOSE 2019-09-27 15:55:00 JonathanveraLuke kramer Meth od[facility] XR CHEST 1 VW PORTABLE 2019-09-27 14:51:38 Robyn Pacheco on [facility] POC GLUCOSE 2019-09-27 11:37:00 JonathanveraLuke kramer Meth odist GENERAL 2019-09-27 10:58:57 Robyn Pacheco Meth odist POC GLUCOSE 2019-09-27 07:50:00 Luke Sparks odist XR CHEST 1 VW PORTABLE 2019-09-27 05:30:34 Gary De La Rosa [place] [facility] POC GLUCOSE 2019-09-27 03:46:00 Luke Sparks Meth od[facility] BASIC METABOLIC PANEL 2019-09-27 00:11:00 Latiff, Areli Kianna ston [facility] MAGNESIUM LEVEL 2019-09-27 00:11:00 LatAreli zayas ethodist HEPATIC FUNCTION PANEL 2019-09-27 00:11:00 Latiff, Nooreahmed Ho [place] [facility] ESTIMATED GFR 2019-09-27 00:11:00 LatAreli zayas ethodist CBC HEMOGRAM 2019-09-27 00:05:00 LatAreli zayas ethodist ARTERIAL BLOOD GAS 2019-09-27 00:05:00 Latiff, Areli Hayleyto n [facility] POC GLUCOSE 2019-09-26 23:45:00 Luke Sparks Meth odist POC GLUCOSE 2019-09-26 19:41:00 Luke Sparks Meth odist POC GLUCOSE 2019-09-26 16:09:[address] Luke Sparks Meth odist CT CHEST W CONTRAST ABDOMEN W CONTRAST PELVIS W CONTRAST 202 15:33:20 Evelia Coleman [facility] XR CHEST 1 VW PORTABLE 2019-09-26 14:19:18 Evelia Coleman [facility] POC GLUCOSE 2019-09-26 11:54:00 Luke pSarks Meth odist POC GLUCOSE 2019-09-26 07:48:00 Luke Sparks Meth odist XR CHEST 1 VW PORTABLE 2019-09-26 05:29:36 Gary De La Rosa [place] [facility] POC GLUCOSE 2019-09-26 03:29:00 Luke Sparks Meth od[facility] BASIC METABOLIC PANEL 2019-09-26 02:10:00 Latiff, Nobrittanymed Kianna ston [facility] CBC HEMOGRAM 2019-09-26 02:10:00 LatiffAreli ethodist MAGNESIUM LEVEL 2019-09-26 02:10:00 Areli Berumen ethodist ARTERIAL BLOOD GAS 2019-09-26 02:10:00 Areli Berumen n [facility] ESTIMATED GFR 2019-09-26 02:10:00 Areli Berumen ethodist POC GLUCOSE 2019-09-26 00:05:00 Luke Sparks Meth odist POC GLUCOSE 2019-09-25 19:40:00 Luke Sparks [place] [facility] US HEPATIC 2019-09-25 16:45:00 Irma Pretty on [facility] XR CHEST 1 VW PORTABLE 2019-09-25 16:03:27 Az Encinas [facility] POC GLUCOSE 2019-09-25 16:00:00 Luke Sparks Meth [...] ESTIMATED GFR 2019-09-25 00:40:00 Irma Pretty on [facility] BILIRUBIN DIRECT 2019-09-25 00:40:00 Irma Pretty [facility] PHOSPHORUS LEVEL 2019-09-25 00:40:00 Irma Pretty [facility] ARTERIAL BLOOD GAS 2019-09-25 00:36:00 SylRamiro zayasmoisés Hardyto n [facility] CBC HEMOGRAM 2019-09-25 00:36:00 Areli Berumen ethodist IONIZED CALCIUM, ARTERIAL 2019-09-25 00:36:00 Irma Prettyist POC GLUCOSE 2019-09-25 00:17:00 Luke Sparks Meth od[facility] POC GLUCOSE 2019-09-24 20:06:00 Luke Sparks Meth odist COVID-19 QUALITATIVE PCR 2019-09-24 18:41:00 Evelia Colemang Kianna gallardo [facility] POC GLUCOSE 2019-09-24 15:56:00 ChiLuke aviles Meth [...] Do, Vesta Hanks PREPARE RBC 2019-09-24 00:06:00 Areli Berumen ethodist POC GLUCOSE 2019-09-24 00:05:00 Luke [...] RESPIRATORY PATHOGEN PANEL 2019-09-23 11:45:00 Luke Sparks [facility] [employer] CULTURE 2019-09-23 11:45:00 Luke Sparks [facility] RESPIRATORY CULTURE 2019-09-23 11:45:00 Luke Sparks [facility] FUNGUS CULTURE 2019-09-23 11:45:00 Luke Sparks Meth [...] 1 VW PORTABLE 2019-09-22 18:00:06 Dinh Lee [facility] POC GLUCOSE 2019-09-22 16:02:00 Luke Sparks Meth [...] INR 2019-09-22 08:30:00 JuniorRobyn farfan Neymar cowartjacinta [facility] POC GLUCOSE 2019-09-22 07:37:00 Luke Sparks Meth od[facility] POC GLUCOSE 2019-09-22 03:46:00 Luke Sparks Meth od[facility] XR CHEST 1 VW PORTABLE 2019-09-22 02:38:00 HoneyKevin Josiah narvaez [place] [facility] BASIC METABOLIC PANEL 2019-09-22 01:42:00 LatiffAreli [facility] ESTIMATED GFR 2019-09-22 01:42:00 Latiff, Areli Epstein ethodist PHOSPHORUS LEVEL 2019-09-22 01:42:00 Latiff, Areli [place] [facility] MAGNESIUM LEVEL 2019-09-22 01:42:00 LatiffAreli ethodist CBC HEMOGRAM 2019-09-22 01:00:00 Latmarquez, Areli Epstein ethodist ARTERIAL BLOOD GAS 2019-09-22 01:00:00 LatmarquezAreli n [facility] POC GLUCOSE 2019-09-21 23:53:00 Luke Sparks Meth odist POC GLUCOSE 2019-09-21 19:30:00 Luke Sparks Meth odist ARTERIAL BLOOD GAS 2019-09-21 16:45:00 Brayden Couch [facility] BASIC METABOLIC PANEL 2019-09-21 16:45:00 Brayden Couch [facility] MAGNESIUM LEVEL 2019-09-21 16:45:00 Brayden Couch [facility] PHOSPHORUS LEVEL 2019-09-21 16:45:00 Brayden Couch [facility] ESTIMATED GFR 2019-09-21 16:45:00 Brayden Couch [facility] POC GLUCOSE 2019-09-21 15:42:00 Luke Sparks Meth odist POC GLUCOSE 2019-09-21 15:39:00 Luke Sparks Meth odist POC GLUCOSE 2019-09-21 11:37:00 Luke Sparks Meth od[facility] ARTERIAL BLOOD GAS 2019-09-21 09:30:00 GheewalBrayden kramer POC GLUCOSE 2019-09-21 07:33:00 Imtiaznguyen Luke [place] [facility] XR CHEST 1 VW PORTABLE 2019-09-21 06:07:26 LatiffAreli river [facility] POC GLUCOSE 2019-09-21 03:57:00 Jonathanveranguyen Luke [place] [facility] CBC HEMOGRAM 2019-09-21 00:15:00 LatAreli zayas ethodist BASIC METABOLIC PANEL 2019-09-21 00:15:00 Latiff, Areli Kianna gallardo [facility] MAGNESIUM LEVEL 2019-09-21 00:15:00 Latiff, Areli Epstein ethodist ARTERIAL BLOOD GAS 2019-09-21 00:15:00 Latiff Areli Hanks ESTIMATED GFR 2019-09-21 00:15:00 Areli Berumen ethodist POC GLUCOSE 2019-09-20 23:53:00 Luke Sparks odakira ECG 12-LEAD 2019-09-20 20:53:59 Brayden Couch POC GLUCOSE 2019-09-20 19:46:00 Luke Sparks Meth odist XR CHEST 1 VW PORTABLE 2019-09-20 18:35:50 Brayden Couch GA AN ELECTIVE ENDOTRACHEAL AIRWAY 2019-09-20 17:23:36 Cale [...] IONIZED CALCIUM, ARTERIAL 2019-09-20 17:05:00 Luke Sparks [facility] HEMOGLOBIN, SYRINGE 2019-09-20 17:05:00 Luke Sparks GLUCOSE LEVEL, SYRINGE 2019-09-20 17:05:00 Luke Sparks on [facility] POC GLUCOSE 2019-09-20 16:05:00 Luke Sparks odakira HEPATIC FUNCTION PANEL 2019-09-20 14:18:00 Kevin Méndez ph [facility] THYROID STIMULATING HORMONE 2019-09-20 14:18:00 Kevin Méndez [facility] TYPE AND SCREEN 2019-09-20 14:00:00 Luke Sparks PREPARE RBC 2019-09-20 14:00:00 Brayden Couch [facility] POTASSIUM LEVEL 2019-09-20 12:41:00 Brayden Couch [facility] MAGNESIUM LEVEL 2019-09-20 12:41:00 Brayden Couch [facility] PHOSPHORUS LEVEL 2019-09-20 12:41:00 Brayden Couch [facility] IONIZED CALCIUM 2019-09-20 12:41:00 Brayden Couch [facility] POC GLUCOSE 2019-09-20 11:52:00 Luke Sparks odist POC GLUCOSE 2019-09-20 07:51:00 Luke Sparks odakira XR CHEST 1 VW PORTABLE 2019-09-20 05:36:46 Areli Berumen [facility] BASIC METABOLIC PANEL 2019-09-20 02:05:00 Areli Berumen [facility] MAGNESIUM LEVEL 2019-09-20 02:05:00 Areli Berumen ethodist HEPATIC FUNCTION PANEL 2019-09-20 02:05:00 Areli Berumen [facility] ESTIMATED GFR 2019-09-20 02:05:00 Areli Berumen ethodist IONIZED CALCIUM 2019-09-20 02:05:00 Areli Berumen ethodist PHOSPHORUS LEVEL 2019-09-20 02:05:00 Areli Berumen [facility] PROTHROMBIN TIME WITH INR 2019-09-20 01:20:00 Areli Berumen CBC HEMOGRAM 2019-09-20 01:00:00 Areli Berumen ethodist COVID-19 QUALITATIVE PCR 2019-09-20 00:35:00 [place] Luke gallardo [facility] POC GLUCOSE 2019-09-19 23:36:00 Luke Sparks Meth odist POC GLUCOSE 2019-09-19 20:37:00 Luke Sparks Meth odist CT CHEST W CONTRAST ABDOMEN W CONTRAST 2019-09-19 17:25:00 Timmy Padron [facility] POC GLUCOSE 2019-09-19 16:11:00 Luke Sparks Meth odist POC GLUCOSE 2019-09-19 12:10:00 Luke Sparks Meth odist POC GLUCOSE 2019-09-19 07:19:00 Luke Sparks Meth odist XR CHEST 1 VW PORTABLE 2019-09-19 03:51:07 LatAreli zayas river [facility] POC GLUCOSE 2019-09-19 03:34:00 Luke Sparks Meth odist BASIC METABOLIC PANEL 2019-09-19 01:59:00 Areli Berumen Kianna gallardo [facility] MAGNESIUM LEVEL 2019-09-19 01:59:00 Areli Berumen ethodist [...] aviles Meth odist POC GLUCOSE 2019-09-18 03:57:00 uLke Sparks Meth odist XR CHEST 1 VW PORTABLE 2019-09-18 03:12:00 Tarsha Gray ton [facility] BASIC METABOLIC PANEL 2019-09-18 00:05:00 Tarsha Gray on [facility] CBC WITH PLATELET AND DIFFERENTIAL 2019-09-18 00:05:00 Tatiana Gray leelanguyen [place] [facility] IONIZED CALCIUM 2019-09-18 00:05:00 Tarsha Gray Met hodist MAGNESIUM LEVEL 2019-09-18 00:05:00 Tarsha Gray Met hodist PHOSPHORUS LEVEL 2019-09-18 00:05:00 Tarsha Gray Me thodist TYPE AND SCREEN 2019-09-18 00:05:00 Tarsha Gray Met hodist ESTIMATED GFR 2019-09-18 00:05:00 Tarsha Gray Met h[facility]ist TROPONIN 2019-09-18 00:05:00 Tarsha Gray Met hodist MANUAL DIFFERENTIAL 2019-09-18 00:05:00 Tarsha Gray [facility] POC GLUCOSE 2019-09-17 23:55:00 Luke Sparks Meth odist ECG 12-LEAD 2019-09-17 21:28:18 Tarsha Gray Met hodist POC GLUCOSE 2019-09-17 20:02:00 Luke Sparks Meth odist POC GLUCOSE 2019-09-17 16:58:00 Luke Sparks Meth odist POC GLUCOSE 2019-09-17 13:14:00 Luke Sparks Meth odist XR CHEST 1 VW PORTABLE 2019-09-17 09:00:00 Dong Roy on [facility] POC GLUCOSE 2019-09-17 08:24:00 Luke Sparks Meth odist POC GLUCOSE 2019-09-17 08:22:00 Luke Sparks Meth odist ECG 12-LEAD 2019-09-17 03:38:28 Dong Roy Meth odist TRIGLYCERIDES 2019-09-17 01:30:00 Luke Sparks Meth odist THYROID STIMULATING HORMONE 2019-09-17 01:30:00 AlbaGUILLERMINA [facility] T4, FREE 2019-09-17 01:30:00 AlbaGUILLERMINA [facility] HEPATIC FUNCTION PANEL 2019-09-17 01:30:00 AlbaGUILLERMINA solomon Hayleyt on [facility] CBC WITH PLATELET AND DIFFERENTIAL 2019-09-17 01:30:00 Kirill Dong Clarence [facility] BASIC METABOLIC PANEL 2019-09-17 01:30:00 Dong Roy n [facility] MAGNESIUM LEVEL 2019-09-17 01:30:00 Dong Roy [facility] PHOSPHORUS LEVEL 2019-09-17 01:30:00 Dong Roy Met [facility] IONIZED CALCIUM 2019-09-17 01:30:00 Jones Royst [place] [facility] ESTIMATED GFR 2019-09-17 01:30:00 Dong Roy [facility] TROPONIN 2019-09-17 01:30:00 Jones [facility]st [place] [facility] MANUAL DIFFERENTIAL 2019-09-17 01:30:00 Dong Roy [facility] POC GLUCOSE 2019-09-16 20:06:00 Luke Sparks [facility] TROPONIN 2019-09-16 18:17:00 Kevin Méndez [facility] XR CHEST 1 VW PORTABLE 2019-09-16 15:37:03 Robyn Pacheco on [facility] POC GLUCOSE 2019-09-16 15:31:00 Luke [facility] TTE COMPLETE, W CONTRAST, W DOPPLER ([id number]) 2019-09-16 13:50:00 Alba GUILLERMINA Yonny [place] [facility] POC GLUCOSE 2019-09-16 11:31:00 Luke Sparks [facility] POC GLUCOSE 2019-09-16 07:37:00 Luke Sparks [facility] TROPONIN 2019-09-16 06:29:00 Kevin Méndez [facility] POC GLUCOSE 2019-09-16 03:36:00 Luke Sparks [facility] ECG 12-LEAD 2019-09-16 03:21:20 Dong Roy [facility] CBC WITH PLATELET AND DIFFERENTIAL 2019-09-16 01:00:00 Dong Roy [facility] BASIC METABOLIC PANEL 2019-09-16 01:00:00 Dong Roy n [facility] MAGNESIUM LEVEL 2019-09-16 01:00:00 RoyJones kuhnst [place] [facility] PHOSPHORUS LEVEL 2019-09-16 01:00:00 Dong Roy Met [facility] IONIZED CALCIUM 2019-09-16 01:00:00 Dong Roy [facility] ESTIMATED GFR 2019-09-16 01:00:00 Dong Roy [facility] ARTERIAL BLOOD GAS 2019-09-16 01:00:00 Dong Roy ethodist MANUAL DIFFERENTIAL 2019-09-16 01:00:00 Dong Roy [facility] POC GLUCOSE 2019-09-16 00:57:00 Luke Sparks [facility] POC GLUCOSE 2019-09-15 20:08:00 Luke Sparks [facility] XR PICC CHEST PORTABLE 2019-09-15 16:07:01 Luke Sparks on [facility] POC GLUCOSE 2019-09-15 15:48:00 Luke Sparks [facility]que[facility] HC CVL PICC INSERT 5 YRS OR > W/RS&I AND IMG GUID 2019-09-15 15: 26:56 Rene Babcock HC CATH DUAL LUMEN PICC # [id number] 0244-06-24 15:26:56 Rene Babcock LACTIC ACID LEVEL 2019-09-15 14:08:00 Dulce Toscano [facility]ist CBC WITH PLATELET AND DIFFERENTIAL 2019-09-15 14:08:00 Juan Toscano [facility] MANUAL DIFFERENTIAL 2019-09-15 14:08:00 Dulce Toscano [facility] POC GLUCOSE 2019-09-15 12:08:00 Luke Sparks [facility] POC GLUCOSE 2019-09-15 07:42:00 Luke Sparks [facility] XR CHEST 1 VW PORTABLE 2019-09-15 04:32:00 Dong Roy on [facility] POC GLUCOSE 2019-09-15 04:14:00 Luke Sparks [facility] ECG 12-LEAD 2019-09-15 03:07:12 Dong Roy [facility] POC GLUCOSE 2019-09-15 00:11:00 Luke Sparks [facility] ARTERIAL BLOOD GAS 2019-09-15 00:10:00 Dong Roy ethodist CBC WITH PLATELET AND DIFFERENTIAL 2019-09-15 00:10:00 Dong Roy BASIC METABOLIC PANEL 2019-09-15 00:10:00 Dong Roy [facility] MAGNESIUM LEVEL 2019-09-15 00:10:00 Dong Roy odakira PHOSPHORUS LEVEL 2019-09-15 00:10:00 Dong Roy Met [facility] LACTIC ACID LEVEL 2019-09-15 00:10:00 Dong Roy Ks [facility] IONIZED CALCIUM, ARTERIAL 2019-09-15 00:10:00 Dong Roy [facility] ESTIMATED GFR 2019-09-15 00:10:00 Dong Roy odakira MANUAL DIFFERENTIAL 2019-09-15 00:10:00 Dong Roy POC GLUCOSE 2019-09-14 19:53:00 Luke Sparks odakira PROTEIN, URINE, RANDOM 2019-09-14 18:45:00 Luke Sparks [facility] SODIUM LEVEL, URINE, RANDOM 2019-09-14 18:45:00 Luke Sparks CREATININE LEVEL, URINE, RANDOM 2019-09-14 18:45:00 Luke Sparks [facility] MICROALBUMIN, URINE, RANDOM 2019-09-14 18:45:00 Luke Sparks [facility] ARTERIAL BLOOD GAS 2019-09-14 18:00:00 Coty Saleh [facility] POC GLUCOSE 2019-09-14 17:31:00 Luke Sparks Meth odist POC GLUCOSE 2019-09-14 15:40:00 Luke Sparks odakira URINE CULTURE 2019-09-14 14:13:00 Fuentes Lares [facility] URINALYSIS SCREEN AND MICROSCOPY, WITH REFLEX TO CULTURE 14:12:00 Fuentes Lares [facility] SODIUM LEVEL, URINE, RANDOM 2019-09-14 14:12:00 Fuentes Lares [facility] CREATININE LEVEL, URINE, RANDOM 2019-09-14 14:12:00 Alan Lares [facility] PROTEIN, URINE, RANDOM 2019-09-14 14:12:00 Fuentes Lares [facility] ARTERIAL BLOOD GAS 2019-09-14 13:59:00 Coty Saleh BASIC METABOLIC PANEL 2019-09-14 13:59:00 Coty Saleh [facility] ESTIMATED GFR 2019-09-14 13:59:00 Coty Saleh ethodist POC GLUCOSE 2019-09-14 13:54:00 Luke Sparks Meth odist VITAMIN B12 LEVEL 2019-09-14 12:29:00 Brianna Sarmiento Ks thodist VITAMIN D 25 HYDROXY LEVEL 2019-09-14 12:29:00 Brianna Sarmiento VITAMIN A LEVEL, PLASMA OR SERUM 2019-09-14 12:29:00 Rahul Sarmiento VITAMIN B1 LEVEL, WHOLE BLOOD 2019-09-14 12:29:00 Brianna Sarmiento COPPER LEVEL, SERUM 2019-09-14 12:29:00 Brianna Sarmiento ZINC LEVEL, SERUM 2019-09-14 12:29:00 Brianna Sarmiento Ks thodist POC GLUCOSE 2019-09-14 12:02:00 Luke Sparks Meth odist POC GLUCOSE 2019-09-14 10:24:00 Luke Sparks Meth odist LACTIC ACID LEVEL 2019-09-14 08:39:00 Morris Aquino on [facility] CBC WITH PLATELET AND DIFFERENTIAL 2019-09-14 08:39:00 Kory Aquino [facility] ARTERIAL BLOOD GAS 2019-09-14 08:39:00 Morris Aquino [facility] MANUAL DIFFERENTIAL 2019-09-14 08:39:00 Morris Aquino [facility] POC GLUCOSE 2019-09-14 08:25:00 Luke Sparks Meth odist ECG 12-LEAD 2019-09-14 06:39:03 Coty Saleh ethodist POC GLUCOSE 2019-09-14 06:33:00 Luke Sparks Meth odist POC GLUCOSE 2019-09-14 06:21:00 Luke Sparks Meth odist CBC WITH PLATELET AND DIFFERENTIAL 2019-09-14 04:50:00 Neha Berumen PROTHROMBIN TIME WITH INR 2019-09-14 04:50:00 Latiff, Areli Lima [facility] ARTERIAL BLOOD GAS 2019-09-14 04:50:00 Latiff, Areli solomon [facility] IONIZED CALCIUM, ARTERIAL 2019-09-14 04:50:00 Latiff, Areli Lima [facility] MANUAL DIFFERENTIAL 2019-09-14 04:50:00 Latiff, Areli Erickson on [facility] XR CHEST 1 VW PORTABLE 2019-09-14 04:25:00 OhJanina on [facility] BLOOD CULTURE, AEROBIC & ANAEROBIC 2019-09-14 04:20:00 Latiff, Neha hughesbrittanymoisés Lima [facility] BLOOD CULTURE, AEROBIC & ANAEROBIC 2019-09-14 04:19:00 Latiff, N ellenbrittanymoisés Fuist POC GLUCOSE 2019-09-14 04:15:00 Luke Sparks odist BASIC METABOLIC PANEL 2019-09-14 04:14:00 Latiff, Areli gallardo [facility] MAGNESIUM LEVEL 2019-09-14 04:14:00 Latiff, Areli Lima M ethodist PHOSPHORUS LEVEL 2019-09-14 04:14:00 Latiff, Areli Lima [facility] PARTIAL THROMBOPLASTIN TIME (PTT) 2019-09-14 04:14:00 Latiff, Cassidy sidhu Lima [facility] ESTIMATED GFR 2019-09-14 04:14:00 Latiff, Areli Lima M ethodist ARTERIAL BLOOD GAS, CORRECTED 2019-09-14 02:09:00 Luke Sparks POTASSIUM, SYRINGE 2019-09-14 02:09:00 Luke Sparks ethodist SODIUM LEVEL, SYRINGE 2019-09-14 02:09:00 Luke Sparks [facility] HEMOGLOBIN, SYRINGE 2019-09-14 02:09:00 Luke Sparks IONIZED CALCIUM, ARTERIAL 2019-09-14 02:09:00 Luke Sparks LACTIC ACID, SYRINGE 2019-09-14 02:09:00 Luke Sparks GLUCOSE LEVEL, SYRINGE 2019-09-14 02:09:00 Luke Sparks on [facility] ANAEROBIC CULTURE 2019-09-14 01:49:00 Luke Sparks Me thodist FUNGUS CULTURE 2019-09-14 01:49:00 Luke Sparks Meth odist AFB CULTURE 2019-09-14 01:49:00 Luke Sparks Meth odist FUNGUS SMEAR 2019-09-14 01:49:00 Luke Sparks odist AFB STAIN 2019-09-14 01:49:00 Luke Sparks Meth odist TISSUE CULTURE 2019-09-14 01:49:00 Luke Sparks Meth odist ARTERIAL BLOOD GAS, CORRECTED 2019-09-14 00:42:00 ImtiazLuke kramer Clarence [facility] SODIUM LEVEL, SYRINGE 2019-09-14 00:42:00 Luke Sparks n [facility] POTASSIUM, SYRINGE 2019-09-14 00:42:00 Luke Sparks ethodist IONIZED CALCIUM, ARTERIAL 2019-09-14 00:42:00 Luke Sparks [facility] GLUCOSE LEVEL, SYRINGE 2019-09-14 00:42:00 Luke Sparks [facility] HEMOGLOBIN, SYRINGE 2019-09-14 00:42:00 [place] Luke Clarence [facility] LACTIC ACID, SYRINGE 2019-09-14 00:42:00 Luke Sparks ARTERIAL BLOOD GAS, CORRECTED 2019-09-13 23:50:00 Luke Sparksist POTASSIUM, SYRINGE 2019-09-13 23:50:00 Luke Sparks ethodist SODIUM LEVEL, SYRINGE 2019-09-13 23:50:00 Luke Sparks [facility] HEMOGLOBIN, SYRINGE 2019-09-13 23:50:00 ImtiaznguyenLuke [facility] IONIZED CALCIUM, ARTERIAL 2019-09-13 23:50:00 Luke Sparks [facility] LACTIC ACID, SYRINGE 2019-09-13 23:50:00 Luke Sparks [facility] ARTERIAL BLOOD GAS, CORRECTED 2019-09-13 22:42:00 Luke Sparks [facility] SODIUM LEVEL, SYRINGE 2019-09-13 22:42:00 Luke Sparks n [facility] POTASSIUM, SYRINGE 2019-09-13 22:42:00 Luke Sparks M ethodist HEMOGLOBIN, SYRINGE 2019-09-13 22:42:00 Chihara, Ray Lima [facility] IONIZED CALCIUM, ARTERIAL 2019-09-13 22:42:00 Luke Sparks GLUCOSE LEVEL, SYRINGE 2019-09-13 22:42:00 Luke Sparks [facility] LACTIC ACID, SYRINGE 2019-09-13 22:42:00 Luke Sparks ARTERIAL LINE 2019-09-13 22:21:48 Sindy Swan Meth odakira GA AN ELECTIVE ENDOTRACHEAL AIRWAY 2019-09-13 22:11:17 Mario Swan ARTERIAL BLOOD GAS, CORRECTED 2019-09-13 21:39:00 Luke Sparks SODIUM LEVEL, SYRINGE 2019-09-13 21:39:00 Luke Sparks [facility] HEMOGLOBIN, SYRINGE 2019-09-13 21:39:00 Luke Sparks POTASSIUM, SYRINGE 2019-09-13 21:39:00 Luke Sparks ethodist GLUCOSE LEVEL, SYRINGE 2019-09-13 21:39:00 Luke Sparks [facility] IONIZED CALCIUM, ARTERIAL 2019-09-13 21:39:00 Luke Sparks [...] WO CONTRAST 2019-09-13 17:20:08 Hemal Grullon on [facility] LACTIC ACID LEVEL, SEPSIS - NOW AND REPEAT 2X EVERY 3 HOURS 2019-09-13 17:20:[address] ABDOMEN PELVIS WO CONTRAST 2019-09-13 17:19:57 Radha Cheng URINE CULTURE 2019-09-13 16:57:00 BookerMiguel álvarez Met hodist AEROBIC CULTURE 2019-09-13 16:55:00 BookerMiguel álvarez Met hodist GRAM STAIN 2019-09-13 16:55:00 Miguel Celeste Met hodist AMYLASE LEVEL, [facility] FLUID 2019-09-13 16:55:00 Latosha Acevedoist LDH, [facility] FLUID 2019-09-13 16:55:00 Latosha Acevedo on [facility] PH, [facility] FLUID 2019-09-13 16:55:00 Latosha Acevedo on [facility] PROTEIN, [facility] FLUID 2019-09-13 16:55:00 Latosha Acevedo GLUCOSE LEVEL, [facility] FLUID 2019-09-13 16:55:00 Latosha Acevedo URINALYSIS SCREEN AND MICROSCOPY, WITH REFLEX TO CULTURE 202 16:39:00 Latosha Acevedo BLOOD CULTURE, AEROBIC & ANAEROBIC 2019-09-13 15:24:00 BookerMiguel BLOOD CULTURE, AEROBIC & ANAEROBIC 2019-09-13 15:12:00 BookerMiguel TROPONIN 2019-09-13 15:12:00 Miguel Celeste Met hodist FIBRINOGEN 2019-09-13 15:12:00 Miguel Celeste Met hodist D-DIMER 2019-09-13 15:12:00 Miguel Celeste Met hodist PROTHROMBIN TIME WITH INR 2019-09-13 15:12:00 BookerMiguel álavrez PARTIAL THROMBOPLASTIN TIME (PTT) 2019-09-13 15:12:00 Booker, [...] WO CONTRAST 2019-09-13 12:09:38 Miguel Celeste n [facility] XR CHEST 1 VW PORTABLE 2019-09-13 11:34:21 BookerMiguel [facility] OCCULT BLOOD, STOOL 2019-09-13 11:25:00 BookerMiguel álvarez XR CHEST 1 VW PORTABLE 2019-09-13 10:29:39 BookerMiguel [facility] CBC WITH PLATELET AND DIFFERENTIAL 2019-09-13 09:35:00 BookerMiguel álvarez PROTHROMBIN TIME WITH INR 2019-09-13 09:35:00 Miguel Celeste [facility] PARTIAL THROMBOPLASTIN TIME (PTT) 2019-09-13 09:35:00 BookerNguyen joyner BASIC METABOLIC PANEL 2019-09-13 09:35:00 BookerMiguel álvarez on [facility] HEPATIC FUNCTION PANEL 2019-09-13 09:35:00 BookerMiguel álvarez [facility] MAGNESIUM LEVEL 2019-09-13 09:35:00 Miguel Celeste Met hodist LIPASE LEVEL 2019-09-13 09:35:00 BookerMiguel álvarez Met hodist B NATRIURETIC PEPTIDE 2019-09-13 09:35:00 BookerMiguel álvarez on [facility] TROPONIN 2019-09-13 09:35:00 Miguel Celeste Met hodist CREATINE KINASE, TOTAL (CPK) 2019-09-13 09:35:00 Miguel Celeste ESTIMATED GFR 2019-09-13 09:35:00 Miguel Celeste Met hodist MANUAL DIFFERENTIAL 2019-09-13 09:35:00 Miguel Celeste HC CVL NON-TUNNELED INSERT 5YRS OR > 2019-09-13 09:24:33 Miguel Celeste GA TUBE THORACOSTOMY INCLUDES WATER SEAL 2019-09-13 09:24:33 Miguel Maria GA CRITICAL CARE, E/M 30-74 MINUTES 2019-09-13 09:24:33 Miguel Celeste GA CRITICAL CARE, ADDL 30 MIN 2019-09-13 09:24:33 [...] 2+ VW LEFT 2019-04-14 09:30:37 Hiro Cruz GA ARTHROCENTESIS ASPIR&/INJ MAJOR JT/BURSA W/O 2019-03-25 2 [...] COUNT W/AUTO DIFF 2019-03-28 05:15:00 Pricilla Clayton [facility] BASIC METABOLIC PANEL 2019-03-28 05:15:00 Olvin Easley Pricilla L H david [facility] MAGNESIUM LEVEL 2019-03-28 05:15:00 DiabDawna Meth odist PHOSPHORUS LEVEL 2019-03-28 05:15:00 DiabDawna Met hodist ESTIMATED GFR 2019-03-28 05:15:00 Basia Miranda [facility] POC GLUCOSE 2019-03-28 01:19:00 Jogllynn Karla Lima Meth odist POC GLUCOSE 2019-03-27 13:10:00 JoGlenis rogersvicky Lima Meth odist POC GLUCOSE 2019-03-27 09:02:00 Joglekjohn Karla Lima Meth odist POC GLUCOSE 2019-03-27 05:56:00 Joglekjohn Karla Lima Meth odist HC COMPLETE BLD COUNT W/AUTO DIFF 2019-03-27 05:28:00 Pricilla Clayton [facility] BASIC METABOLIC PANEL 2019-03-27 05:28:00 Pricilla Mcbride [facility] ESTIMATED GFR 2019-03-27 05:28:00 Basia Miranda [facility] POC GLUCOSE 2019-03-27 02:08:00 JoglGlenis baileyati Clarence Meth odist POC GLUCOSE 2019-03-26 21:31:00 Joglekjohn Karla Lima Meth odist POC GLUCOSE 2019-03-26 20:54:00 JoglGlenis baileyati Lima Meth odist US THORACENTESIS WITH IMAGING 2019-03-26 18:58:48 Rodrigo Walton XR CHEST 1 VW PORTABLE 2019-03-26 18:17:02 Ronnie Rodriguez on [facility] POC GLUCOSE 2019-03-26 17:02:00 JoglKarla bailey Meth odist PARTIAL THROMBOPLASTIN TIME (PTT) 2019-03-26 13:35:00 TuanKaitlin alexandra Clarence [facility] PROTHROMBIN TIME WITH INR 2019-03-26 13:35:00 TuanRonnie alexandra river [facility] POC GLUCOSE 2019-03-26 08:59:00 Bavare, Arusha Amod Clarence [facility] HC COMPLETE BLD COUNT W/AUTO DIFF 2019-03-26 08:55:00 Bah Pricilla Steel [facility] BASIC METABOLIC PANEL 2019-03-26 08:55:00 Bah Easley Pricilla L Paolo hernandez [facility] ESTIMATED GFR 2019-03-26 08:55:00 Bavare, Arusha Amod Clarence [facility] CT ABDOMEN PELVIS W CONTRAST 2019-03-26 07:40:11 Parth Walton [facility] POC GLUCOSE 2019-03-26 05:07:00 Bavare, Arusha Amod Clarence [facility] POC GLUCOSE 2019-03-25 21:08:00 Bavare, Arusha Amod Clarence [facility] POC GLUCOSE 2019-03-25 13:03:00 Bavare, Arusha Amod Clarence [facility] POC GLUCOSE 2019-03-25 09:02:00 Bavare, Arusha Amod Clarence [facility] POC GLUCOSE 2019-03-25 05:06:00 Bavare, Arusha Amod Clarence [facility] BASIC METABOLIC PANEL 2019-03-25 04:55:00 Natalie Nicholson [facility] CBC HEMOGRAM 2019-03-25 04:55:00 Natalie Nicholson odist ESTIMATED GFR 2019-03-25 04:55:00 Bavare, Arusha Amod Clarence [facility] POC GLUCOSE 2019-03-25 01:15:00 Bavare, Arusha Amod Clarence [facility] POC GLUCOSE 2019-03-24 20:42:00 Bavare, Arusha Amod Clarence [facility] POC GLUCOSE 2019-03-24 09:29:00 Bavare, Arusha Amod Clarence [facility] POC GLUCOSE 2019-03-24 06:01:00 Bavare, Arusha Amod Clarence [facility] BASIC METABOLIC PANEL 2019-03-24 06:00:00 Natalie Nicholson [facility] CBC HEMOGRAM 2019-03-24 06:00:00 Natalie Nicholson Meth odist ESTIMATED GFR 2019-03-24 06:00:00 Basia Miranda [facility] POC GLUCOSE 2019-03-24 01:24:00 Basia Miranda [facility] POC GLUCOSE 2019-03-23 20:07:00 Basia Miranda [facility] POC GLUCOSE 2019-03-23 16:47:00 Basia Miranda [facility] POC GLUCOSE 2019-03-23 12:57:00 Basia Miranda Lima [facility] POC GLUCOSE 2019-03-23 09:12:00 Basia Miranda [facility] POC GLUCOSE 2019-03-23 05:31:00 Basia Miranda Clarence [facility] BASIC METABOLIC PANEL 2019-03-23 05:10:00 Natalie Nicholson CBC HEMOGRAM 2019-03-23 05:10:00 Natalie Nicholson PREALBUMIN LEVEL 2019-03-23 05:10:00 Natalie Nicholson hodist ESTIMATED GFR 2019-03-23 05:10:00 Basia Miranda Lima [facility] POC GLUCOSE 2019-03-22 20:29:00 Basia Miranda [facility] POC GLUCOSE 2019-03-22 16:56:00 Basia Miranda Lima [facility] POC GLUCOSE 2019-03-22 13:22:00 Basia Miranda [facility] POC GLUCOSE 2019-03-22 09:29:00 Basia Miranda Clarence [facility] HC COMPLETE BLD COUNT W/AUTO DIFF 2019-03-22 05:01:00 St gerard Michelle BASIC METABOLIC PANEL 2019-03-22 05:01:00 Jimenez Michelle MAGNESIUM LEVEL 2019-03-22 05:01:00 Jimenez Michelle PHOSPHORUS LEVEL 2019-03-22 05:01:00 Jimenez Michelle ESTIMATED GFR 2019-03-22 05:01:00 RubenBasia Dorota Hanks CBC WITH PLATELET AND DIFFERENTIAL 2019-03-21 12:33:00 Han Michelle BASIC METABOLIC PANEL 2019-03-21 12:33:00 Miguel AngelJimenez drummond [facility] MAGNESIUM LEVEL 2019-03-21 12:33:00 Miguel AngelJimenez PHOSPHORUS LEVEL 2019-03-21 12:33:00 Miguel AngelJimenez [facility] ESTIMATED GFR 2019-03-21 12:33:00 Basia Miranda [facility] MANUAL DIFFERENTIAL 2019-03-21 12:33:00 Basia Miranda [facility] CBC WITH PLATELET AND DIFFERENTIAL 2019-03-20 09:38:00 Miguel Angel, Han april Lima [facility] MANUAL DIFFERENTIAL 2019-03-20 09:38:00 Basia Miranda [facility] BASIC METABOLIC PANEL 2019-03-20 07:26:00 Miguel AngelJimenez MAGNESIUM LEVEL 2019-03-20 07:26:00 Jimenez Michelle PHOSPHORUS LEVEL 2019-03-20 07:26:00 Jimenez Michelle [facility] ESTIMATED GFR 2019-03-20 07:26:00 Basia Miranda TTE COMPLETE, WO CONTRAST, W DOPPLER ([id number]) 2019-03-19 10:1 7:33 Camacho Solomon HC COMPLETE BLD COUNT W/AUTO DIFF 2019-03-19 05:06:00 Crista Grullon COMPREHENSIVE METABOLIC PANEL 2019-03-19 05:06:00 Korin Grullon ESTIMATED GFR 2019-03-19 05:06:00 Hemal Grullon Ks thodist LIPASE LEVEL 2019-03-19 05:06:00 Sean Campos ethodist AMYLASE LEVEL 2019-03-19 05:06:00 Sean Campos ethodist THYROID STIMULATING HORMONE 2019-03-18 17:46:00 Camacho Solomon VITAMIN B1 LEVEL, WHOLE BLOOD 2019-03-18 17:46:00 Camacho Solomon FOLATE LEVEL 2019-03-18 17:46:00 Camacho Solomon ethodist VITAMIN B12 LEVEL 2019-03-18 17:46:00 Neha Camacho Lima [facility] TROPONIN 2019-03-18 17:46:00 Neha Camacho Lima M ethodist B NATRIURETIC PEPTIDE 2019-03-18 17:46:00 Kavitha Solomonjohn Peoples Kianna ston [facility] CT ABDOMEN PELVIS W CONTRAST 2019-03-18 10:19:[address] ANGIOGRAM PE CHEST 2019-03-18 10:19:36 Geo Walton TROPONIN 2019-03-18 09:26:00 Geo Walton [facility] LACTIC ACID LEVEL 2019-03-18 09:26:00 Geo Walton [facility] ECG 12-LEAD 2019-03-18 09:19:37 Geo Waltonto neha [facility] ECG 12-LEAD 2019-03-18 04:54:54 Ginny Ortiz Meth odist CBC WITH PLATELET AND DIFFERENTIAL 2019-03-18 04:52:00 Hemal Grullon COMPREHENSIVE METABOLIC PANEL 2019-03-18 04:52:00 Korin Grullon ESTIMATED GFR 2019-03-18 04:52:00 Hemal Grullon Me thodist TROPONIN 2019-03-18 04:52:00 Ginny Ortiz Meth odist MANUAL DIFFERENTIAL 2019-03-18 04:52:00 Hemal Grullon [facility] CBC WITH PLATELET AND DIFFERENTIAL 2019-03-17 16:50:00 Anette Emery [facility] MANUAL DIFFERENTIAL 2019-03-17 16:50:00 Shiela Chapin [facility] XR CHEST 1 VW PORTABLE 2019-03-17 05:47:31 Reza Sanchez [facility] CBC WITH PLATELET AND DIFFERENTIAL 2019-03-17 04:30:00 Hemal Grullon COMPREHENSIVE METABOLIC PANEL 2019-03-17 04:30:00 Korin Grullon MAGNESIUM LEVEL 2019-03-17 04:30:00 Reza Sanchez ton [facility] PHOSPHORUS LEVEL 2019-03-17 04:30:00 Reza Sanchez husamneha [facility] ESTIMATED GFR 2019-03-17 04:30:00 Reza Sanchez [facility] MANUAL DIFFERENTIAL 2019-03-17 04:30:00 Reza Sanchez POC GLUCOSE 2019-03-17 01:15:00 Jeffcoby Johnlolanguyen Dorota Lima [facility] CBC WITH PLATELET AND DIFFERENTIAL 2019-03-16 15:13:00 Miguel Celeste BASIC METABOLIC PANEL 2019-03-16 15:13:00 Miguel Celeste on [facility] ESTIMATED GFR 2019-03-16 15:13:00 Miguel Celeste hodist MANUAL DIFFERENTIAL 2019-03-16 15:13:00 Miguel Celeste NICOTINE AND COTININE, SERUM 2019-03-16 03:52:00 Parth Walton CBC WITH PLATELET AND DIFFERENTIAL 2019-03-16 03:52:00 Cristina Melton BASIC METABOLIC PANEL 2019-03-16 03:52:00 Cristina Melton ESTIMATED GFR 2019-03-16 03:52:00 Cristina Melton [facility] MANUAL DIFFERENTIAL 2019-03-16 03:52:00 Cristina Melton GA AN ELECTIVE ENDOTRACHEAL AIRWAY 2019-03-15 20:21:12 Herbie [...] PELVIS W CONTRAST 2019-03-15 13:42:22 Miguel Celeste GA CRITICAL CARE, E/M 30-74 MINUTES 2019-03-15 11:35:19 Miguel Celeste GA CRITICAL CARE, ADDL 30 MIN 2019-03-15 11:35:19 Miguel Celeste ECG ED PRELIMINARY INTERPRETATION 2019-03-15 11:35:19 Nguyen Celeste CBC WITH PLATELET AND DIFFERENTIAL 2019-03-15 10:10:00 Miguel Celeste COMPREHENSIVE METABOLIC PANEL 2019-03-15 10:10:00 Miguel Celeste TROPONIN 2019-03-15 10:10:00 Miguel Celeste Met hodist B NATRIURETIC PEPTIDE 2019-03-15 10:10:00 Miguel Celeste on [facility] LIPASE LEVEL 2019-03-15 10:10:00 Miguel Celeste Met hodist MAGNESIUM LEVEL 2019-03-15 10:10:00 Miguel Celeste Met hodist ESTIMATED GFR 2019-03-15 10:10:00 Miguel Celeste Met hodist BILIRUBIN DIRECT 2019-03-15 10:10:00 Miguel Celeste Me thodist ECG 12-LEAD 2019-03-15 10:00:15 Miguel Celeste Met hodist Diagnostic evaluation with medical - [id number] 2019-02-21 19:32: 56 Meenakshi Briceno [facility] Planned Activity Planned Date Details Comments Source Future Scheduled Test 2023-10-12 00:00:00 COLONOSCOPY SCREEN ING [code = COLONOSCOPY SCREENING] [facility] Future Scheduled Test 2020-12-29 00:00:00 BREAST CANCER SCRE ENING [code = BREAST CANCER SCREENING] [facility] 2019-10-23 00:00:00 INFLUENZA VACCINE [code = INFLUENZA VACCINE] [facility] Future Scheduled Test 2013 00:00:00 65+ PNEUMOCOCCAL V ACCINE (2 of 2 - PPSV23) [code = 65+ PNEUMOCOCCAL VACCINE (2 of 2 - PPSV23)] [facility] Future Scheduled Test 1998 00:00:00 SHINGLES VACCINES (#1) [code = SHINGLES VACCINES (#1)] [facility] Medication 2020-01-17 00:00:00 cyanocobalamin 1,000 mcg/mL injection [code = 100056] [facility] Encounters Start Date/Time End Date/Time Encounter Type Admission Type Att[facility] Care Department Encounter ID Source 2019-12-06 00:00:00 2019-12-27 00:00:00 Inpatient JIMENEZ CARR [facility] 021 [id number] [facility] 2019-11-26 00:00:00 2019-11-26 00:00:00 Outpatient SENAITMOLINA CARREON MA [facility] [id number] [facility] 2019-09-13 00:00:00 2019-11-05 00:00:00 Inpatient LUKE SPARKS 027 [id number] [facility] 2019-09-15 00:00:00 2019-09-15 00:00:00 Office Visit Meenakshi Briceno [facility] Encounter/[id number] [facility] 2019-09-13 00:00:00 2019-09-13 00:00:00 Emergency BASIA MIRANDA [facility] [id number] [facility] 2019-08-30 00:00:00 2019-08-30 00:00:00 Office Visit Meenakshi Moore Norma [facility] Encounter/[id number] [facility] 2019-08-26 00:00:00 2019-08-26 00:00:00 Outpatient KARON HAMILTON RA [facility] [id number] [facility] 2019-08-06 00:00:00 2019-08-07 00:00:[address] [facility] [id number] [facility] 2019-07-20 00:00:00 2019-07-20 00:00:00 Outpatient GEO OWEN [facility] [id number] [facility] 2019-06-23 00:00:00 2019-06-23 00:00:00 Office Visit Meenakshi Briceno [facility] Encounter/[id number] [facility] 2019-06-16 00:00:00 2019-06-16 00:00:00 Office Visit Meenakshi Briceno [facility] Encounter/[id number] [facility] 2019-06-16 00:00:00 2019-06-16 00:00:00 Office Visit Meenakshi Briceno [facility] Encounter/[id number] [facility] 2019-05-31 00:00:00 2019-05-31 00:00:00 Office Visit Meenakshi Moore Jose E [facility] En[facility][id number] [facility] 2019-05-13 00:00:00 2019-05-13 00:00:00 Office Visit Meenakshi Moore Mary N [id number] [facility] 2019-03-15 00:00:00 2019-03-29 00:00:00 MAG Pearce I [facility] [id number] [facility] 2019-02-08 00:00:00 2019-02-08 00:00:00 Office Visit Meenakshi Briceno [facility] Encounter/[id number] [facility] 2019-02-08 00:00:00 2019-02-08 00:00:00 Office Visit Meenakshi Briceno [facility] Encounter/[id number] [facility] 2019-02-08 00:00:00 2019-02-08 00:00:00 [facility][id number] [facility] 2019-02-08 00:00:00 2019-02-08 00:00:00 Office Visit Meenakshi Briceno [facility] Encounter/[id number] [facility] 2019-02-08 00:00:00 2019-02-08 00:00:00 Office Visit Meenakshi Briceno [facility] Encounter/[id number] [facility] 2019-02-08 00:00:00 2019-02-08 00:00:00 Office Visit Meenakshi Briceno [facility] Encounter/[id number] [facility] 2019-02-08 00:00:00 2019-02-08 00:00:00 Office Visit Meenakshi Briceno [facility] Encounter/[id number] [facility] 2019-02-08 00:00:00 2019-02-08 00:00:00 Office Visit Brigette lamaMeenakshi Jazmin [facility] Encounter/[id number] [facility] 2018-11-19 00:00:00 2018-11-19 00:00:00 Office Visit Joyce Washington [facility] Encounter/[id number] [facility] Results Test Description Test Time Test Comments Results Result Comments Source POC glucose 2019-12-27 12:05:26 Test Item POC glucose (test code = 58718-3) 109 mg/dL 65-99 H Cage/Vault Supervisor Name: Logan CarringtonAnastasia ID: [id number]: No Action Needed Lab Interpretation (test code = 51128-2) [facility] [id number] 06:55:23* Test Item Value Reference Range Interpretation Comments BNP (test code = 22385-5) 432 pg/mL 0-100 H Lab Interpretation (test code = 91014-9) [facility] [id number] 06:44:30* Test Item Value Reference Range Interpretation Comments Sodium (test code = 2951-2) 139 135- 148 mEq/L Potassium (test code = 2823-3) 4.2 3.5- 5.0 mEq/L Chloride (test code = 2075-0) 98 98- 112 mEq/L CO2 (test code = 8-9) 26 24- 31 mEq/L Anion gap (test code = 65834-0) 15@ANIO 7- 15 mEq/L BUN (test code = 3094-0) 27 mg/dL 8-23 H Creatinine (test code = 2160-0) 0.54 mg/dL 0.5-0.9 Glucose (test code = 2345-7) 118 mg/dL 65-99 H Calcium (test code = 66089-1) 9.5 mg/dL 8.8-10.2 Lab Interpretation (test code = 07168-1) [facility]normal [facility] [id number] 06:44:19* Test Item Value Reference Range Interpretation Comments Magnesium (test code = 25832-1) 2.1 mg/dL 1.6-2.4 [facility] [id number] 06:44:19* Test Item Value Reference Range Interpretation Comments Estimated GFR (test code = 5488) >=90 mL/min/1.73 m2 Catergory Units InterpretationG1 >=90 Normal or highG2 60-89 Mildly cwtaeqjrlG4z 45-59 Mildly to moderately dkdtnryfzR3r 30-44 Moderately to severely decreasedG4 15-29 Severely decreasedG5 <15 Kidney failureThe eGFR was calculated using the Chronic Kidney Disease Epidemiology Collaboration (CKD-EPI) equation. Interpretation is based on recommendations of the National Kidney Foundation-Kidney Disease Outcomes Quality Initiative (NKF-KDOQI) published in 2014. [facility] with platelet and [id number] 06:11:37* Test Item Value Reference Range Interpretation Comments WBC (test code = 14041-1) 9.39 4.50- 11.00 k/uL RBC (test code = 70797-4) 3.07 m/uL 4.2-5.5 L HGB (test code = 718-7) 9.4 g/dL 12-16 L HCT (test code = 4544-3) 30.3 % 37-47 L MCV (test code = 787-2) 98.7 fL 82-100 MCH (test code = 785-6) 30.6 pg 27-34 MCHC (test code = 786-4) 31.0 g/dL 31-37 RDW - SD (test code = 18773-9) 65.1 fL 37-55 H MPV (test code = 61602-1) 8.7 fL 8.8-13.2 L Platelet count (test code = 11468-8) 360 150- 400 k/uL Nucleated RBC (test code = 67110-0) 0.00 /100 WBC Neutrophils (test code = 04174-9) 62.8 % 39-69 Lymphocytes (test code = 44088-2) 11.0 % 25-45 L Monocytes (test code = 21896-9) 7.9 % 0-10 Eosinophils (test code = 69972-9) 17.0 % 0-5 H Basophils (test code = 36552-5) 0.7 % 0-1 Immature granulocytes (test code = 79216-9) 0.6 % 0-1 "Immature granulocytes" (promyelocytes, myelocytes, metamyelocytes) Lab Interpretation (test code = 32438-3) Abnormal [place] MethodistECG 12 rwoy4377-76-54 20:25:42* Test Item Value Reference Range Interpretation Comments Ventricular rate (test code = 253) 76 Atrial rate (test code = 255) 76 GA interval (test code = 266) 174 QRSD [...] atrial rhythm- Clarence FuistXR Chest 1 Vw Tnhpznir5526-55-05 09:42:25Hm Interface, Radiology Results - 12/24/2019 9:45 [...] major fissure. No pneumothorax.Bones: N o acute abnormality.[facility]-[id number] and approved by residential worker/trang villalobosw: Roger Katz, Mickey Chin MD, personally reviewed the images and resident's/fellow's findings and agree with the final report.Clarence Hanks Anaerobic adojjhi6676-24-16 08:11:36* Test Item Value Reference Range Interpretation Comments Anaerobic culture isolate (test code = 552) No anaerobic organis ms isolated. Specimen InformationSpecimen Source: Tho racentesis fluidSpecimen Site: Not otherwise specified Clarence FuistAerobic xygkink0203-95-78 21:16:06* Test Item Value Reference Range Interpretation Comments Aerobic culture isolate (test code = 498) No growth after 3 days. Specimen InformationSpecimen Source: Thoracentesis fluidSpecimen Site: Not otherwise specified Clarence FuistFL Modified Barium Rnpyujw8525-88-90 12:01:39Hm Interface, Radiology Results - 12/22/2019 12:04 [...] pathology report for further details.1D2 RAD_PS04Houpaulina HanksProtein, lsile7350-76-96 10:18:27* Test Item Value Reference Range Interpretation Comments Protein (test code = 2885-2) 6.4 g/dL 6.3-8.3 -[place] 4.6- 7.0 g/dL1 week 4.4-7.6 g/dL7 months-1year 5.1-7.3 g/dL1-2 years 5.6-7.5 g/dL>3 years 6.0-8.0 g/mY41-386 6.3-8.3 g/dL Clarence Robertsurgical pathology dydnarh8258-13-39 12:52:31* Test Item Value Reference Range Interpretation Comments Case number (test code = 3405353) [id number] Surgical pathology report (test code = 2255) See link below for PDF Lab Report Result status (test code = 2120010) This is Final Report for [id number] Clarence FuakiraPhosphorus mcgwg9932-34-74 06:30:25* Test Item Value Reference Range Interpretation Comments Phosphorus (test code = 2777-1) 3.8 mg/dL 2.4-4.5 [place] MethodistGram eosqo6353-07-72 21:42:32* Test Item Value Reference Range Interpretation Comments Gram stain isolate (test code = 1469) No WBC's or organisms seen. Specimen InformationSpecimen Source: Thoracentesis fluidSpecimen Site: Not otherwise specified [place] MethodistCell count and differential, body ppgyv5161-36-96 18:40:22* Test Item Value Reference Range Interpretation Comments Misc fluid type (test code = 55757-6) Thoracentesis Color, fluid (test code = 6824-7) Yellow Appearance, fluid (test code = 9335-1) Hazy RBC, fluid (test code = 59868-9) SEE COMMENT /CMM 2+ (500 - 10,000 RBC/CMM) Nucleated cells, fluid (test code = 49530-4) 623 /CMM Fluid mononuclear cell (test code = 1407) See Diff Neutrophils, fluid (test code = 49534-4) 27 % Lymphocytes, fluid (test code = 24233-9) 69 % Eosinophils, fluid (test code = 96148-5) 3 % Macrophages, fluid (test code = 24559-9) 1 % [place] MethodistProthrombin time with NJE7848-05-45 16:42:38* Test Item Value Reference Range Interpretation Comments Prothrombin time (test code = 5902-2) 21.9 11.5- 14.5 sec H INR (test code = 67246-6) 1.9 Th e International Normalized Ratio (INR) is a therapeutic monitoring tool for patients who are stable on oral anticoagulant therapy. An INR of 2.0-3.0 is suggested for deep vein thrombosis/pulmonary embolism. Lab Interpretation (test code = 68569-1) Abnormal [place] MethodistGlucose level, [facility] uiqmy2754-53-01 16:27:35* Test Item Value Reference Range Interpretation Comments Fluid type (test code = 81937-1) Thoracentesis Glucose, fluid (test code = 2344-0) 78 mg/dL The reference interval(s) and other method performance specifications have not been established for this body fluid. The test results must be integrated into the clinical context for interpretation.This test has been modified from the manufacturers instructions. The performance characteristics were determined by [facility] in a manner consistent with CLIA requirements. This test has not been cleared or approved by the U.S. Food and Drug Administration. [facility]rence [facility]yes [facility] xvscq6553-72-04 16:27:35* Test Item Value Reference Range Interpretation Comments Fluid type (test code = 33574-9) Thoracentesis Protein, fluid (test code = 2881-1) 2.9 g/dL The reference interval(s) and other method performance specifications have not been established for this body fluid. The test results must be integrated into the clinical context for interpretation.This test has been modified from the manufacturers instructions. The performance characteristics were determined by [facility] in a manner consistent with CLIA requirements. This test has not been cleared or approved by the U.S. Food and Drug Administration. [facility] Nickiesan [facility] centerXR Chest 1 Ll1552-08-38 12:43:32Hm Interface, Radiology Results Incoming 12/19/2019 12:46 [...] changes thoracic spine.1D2RAD_PS03 Clarence HanksUS Thoracentesis With Bgadarb0215-31-25 12:07:26Hm Interface, Radiology Results Incoming - 12/19/2019 12:10 PM CDTPERFORMING RAD IOLOGIST:Wisam Yang MD.ASSISTANTS:None. ANESTHESIA TYPE:Lidocaine 1% wa s used for local anesthetic. ANTIBIOTICS:None.PRE PROCEDURE DIAGNOSIS: Symptomat ic pleural effusion.POST PROCEDURE DIAGNOSIS: Status post thoracentesis. PROCEDU RE: Ultrasound-guided right diagnostic and therapeutic thoracentesis.TECHNIQUE: Written informed consent was obtained prior to the procedure. All elements of [facility] sterile barrier technique were followed. The patient [...] Then, using real-time ultrasound guidance, a 6 Peruvian pigtail catheter sy stem was advanced into [...] % 15-38 Lab Interpretation (test code = 67454-9) Abnormal [place] MethodistPrepare RBC, 2 Xcosh4691-33-01 16:13:00* Test Item Value Reference Range Interpretation Comments Product name (test code = 25) Red Blood Cells -1, Leukored Unit number (test code = 2231813) [id number] Product code (test code = 3092) [id number] Dispense status (test code = 24) Transfused Blood expiration date (test code = 302) [id number] Blood type code (test code = 308) 6203 Blood type (test code = 1314) A POSITIVE Compatibility (test code = 6400) Compatible Clarence FuistUS Znglj5729-12-77 15:07:32Hm Interface, Radiology Results 12/18/2019 3:10 PM CDTEXAMINATION: 66CLINICAL HISTORY: 69 years Female Pleural effusion, new pleural effusion on rightCOMPARISON: None.IMPRESSION:Right chest:Right-sided pleural effusion measures 602ml. There are are small septationsLeft chest:Left-sided pleural effusion measures 66ml. There are no septations or loculationsHouchanning home MethodistSmear crvveu8716-49-93 12:46:16* Test Item Value Reference Range Interpretation Comments Platelet slide review (test code = 96360-2) Romero adequate Anisocytosis (test code = 702-1) Moderate Polychromasia (test code = 50883-0) Moderate Ovalocytes (test code = 774-0) Moderate Enlarged platelets (test code = 17627-5) Moderate A Lab Interpretation (test code = 33357-5) Abnormal [place] MethodistType and azzkik5031-28-00 07:27:00* Test Item Value Reference Range Interpretation Comments ABO grouping (test code = 883-9) A Rh type (test code = 34315-7) POS Antibody screen (gel) (test code = 890-4) NEG [place] MethodistRespiratory rkruufw8642-89-58 18:26:50* Test Item Value Reference Range Interpretation Comments Respiratory culture isolate (test code = 61342-0) Normal oral fl ora isolated. Specimen InformationSpecimen Source: Bro nchial WashingSpecimen Site: PEG (Left Upper Lobe) LLL (Left Lower Lobe) Clarence MethodistHemoglobin & dgubapliea1544-65-02 10:58:35* Test Item Value Reference Range Interpretation Comments HGB (test code = 718-7) 7.4 g/dL 12-16 L HCT (test code = 4544-3) 25.1 % 37-47 L Lab Interpretation (test code = 83720-3) Abnormal [place] MethodistFolate zkcuz0342-10-44 06:32:33* Test Item Value Reference Range Interpretation Comments Folate (test code = 2284-8) 17.1 ng/mL 4.8-24.2 [place] MethodistFungus nxrty2818-03-60 15:51:48* Test Item Value Reference Range Interpretation Comments Fungus smear (test code = 1443) No fungi observed. Specimen InformationSpecimen Source: Bronchial WashingSpecimen Site: PEG (Left Upper Lobe) LLL (Left Lower Lobe) [place] MethodistAFB wcaay1370-62-08 13:46:38* Test Item Value Reference Range Interpretation Comments AFB stain (test code = 676-7) No acid fast bacilli (AFB) seen. Specimen InformationSpecimen Source: Bronchial WashingSpecimen Site: PEG (Left Upper Lobe) LLL (Left Lower Lobe) [place] NickieistComprehensive metabolic zclhx3691-98-60 06:27:31* Test Item Value Reference Range Interpretation Comments Sodium (test code = 2951-2) 142 135- 148 mEq/L Potassium (test code = 2823-3) 3.7 3.5- 5.0 mEq/L Chloride (test code = 2075-0) 102 98- 112 mEq/L CO2 (test code = 8-9) 32 24- 31 mEq/L H Anion gap (test code = 47995-0) 8@ANIO 7- 15 mEq/L BUN (test code = 3094-0) 21 mg/dL 8-23 Creatinine (test code = 2160-0) 0.47 mg/dL 0.5-0.9 L Glucose (test code = 2345-7) 115 mg/dL 65-99 H Calcium (test code = 45084-5) 8.6 mg/dL 8.8-10.2 L Protein (test code = 2885-2) 5.9 g/dL 6.3-8.3 L -[place] 4.6- 7.0 g/dL1 week 4.4-7.6 g/dL7 months-1year 5.1-7.3 g/dL1-2 years 5.6-7.5 g/dL>3 years 6.0-8.0 g/oL77-962 6.3-8.3 g/dL Albumin (test code = 1751-7) 2.1 g/dL 3.5-5 L A/G ratio (test code = 1759-0) 0.6 0.7-3.8 L Alkaline phosphatase (test code = 6768-6) 321 U/L 35-104 H AST (test code = 1920-8) 22 U/L 10-35 ALT (test code = 1742-6) 21 U/L 5-50 Total bilirubin (test code = 1974-2) 0.6 mg/dL 0-1.2 Lab Interpretation (test code = 17698-0) Abnormal [place] MethodistBlood culture, aerobic & qzfxuwazg8574-78-38 03:03:06* Test Item Value Reference Range Interpretation Comments Blood culture isolate (test code = 600-7) No growth after 5 days of incubation. Specimen InformationSpecimen Source: BloodSpecimen Site: Hand, right [place] MethodistArterial blood yod0547-67-15 07:15:47* Test Item Value Reference Range Interpretation [...] % 95-100 Lab Interpretation (test code = 83778-4) Abnormal [place] MethodistPrealbumin ymjck3388-16-43 03:32:22* Test Item Value Reference Range Interpretation Comments Prealbumin (test code = 6793-4) 15 mg/dL 16-32 L Lab Interpretation (test code = 52738-6) Abnormal [place] MethodistPartial thromboplastin time, dnnasfxgt6968-86-16 03:22:34* Test Item Value Reference Range Interpretation Comments PTT (test code = 49953-8) 37.1 23.0- 36.0 sec H PTT therapeutic range for unfractionated heparin is61.0-112.0 seconds which corresponds to Anti-Xa0.3-0.7 U/ml. Lab Interpretation (test code = 93294-3) Abnormal [place] MethodistCytology (non-gynecological) grefktj6727-21-39 16:40:23* Test Item Value Reference Range Interpretation Comments Case number (test code = 7566164) [id number] Cytology (non-gynecological) report (test code = 1178) See link below for PDF Lab Report Result status (test code = 8347645) This is Final Report for [id number] [place] MethodistCT Chest Wo Hleibtly4722-00-59 11:31:21Hm Interface, Radiology Results Incoming - 12/09/2019 [...] soft tissue defect. Fracture posterior eighth rib. [id number] MethodistCT Soft Tissue Neck Wo Uhsbfbxs7176-13-59 11:17:54 Interface, Radiology Results 12/09/2019 11:21 AM [...] nding at 12/09/2019 11:12 AM who verbalized understanding.[id number] Clarence Willis pfexzzg2590-48-05 08:25:39* Test Item Value Reference Range Interpretation Comments Urine culture isolate (test code = 60166-6) No growth after 24 hour s Specimen InformationSpecimen Source: UrineSpecimen Site: [facility] duplex venous lower kvtdnzwhg4178-55-85 18:47:00Interface, Radiology Results In - 12/08/2019 6:48 PM CDT Vascular Ultrasound Laboratory Lower Extremity Venous Report [address] [place] [address] Pat.Name: EMILY BAUER Pat.ID: [id number] St.Date: 12/08/2019 Refer.MD: JIMENEZ CARR MD Exam Time: 2:25:00 PM Study Type:LE Venous Height: 66in Weight: 130lb BSA: 1.67 m2 Age: 9 1950,69Y Sex: FEMALE Sonogrphr: Viki Brown RVT Pat. Stat.:[facility] Room: [address] Tape Vol: JJ, CPT - 4: 22340 Echo Event ID:[id number] Order ID: [id number] Reason for Study:Evaluation for DVT.Procedure s: Colorflow, [...] FINDINGS: Signed 12/08/2019 06:47 Reanna Glasgow MD, [facility] MethodistUrinalysis screen and microscopy, with reflex to dcdlukj1747-59-26 00:21:12* Test Item Value Reference Range Interpretation Comments Specimen site (test code = 4236622) [place]ch[place] Color, UA (test code = 5778-6) Straw Appearance, UA (test code = 5767-9) Clear Specific gravity, UA (test code = 5811-5) 1.006 1.001-1.035 pH, UA (test code = 5803-2) 5.0 5.0-8.5 Protein, UA (test code = 25995-1) Negative Negative Glucose, UA (test code = 75604-5) Negative Negative Ketones, UA (test code = 2514-8) Negative Negative Bilirubin, UA (test code = 5770-3) Negative Negative Blood, UA (test code = 5794-3) Moderate Negative A Nitrite, UA (test code = 5802-4) Negative Negative Urobilinogen, UA (test code = 04153-5) <2.0 <2.0 Leukocyte esterase, UA (test code = 5799-2) Small Negative A Epithelial cells, UA (test code = 5787-7) <1 /HPF WBC, UA (test code = 5821-4) 5 0- 4 /HPF H RBC, UA (test code = 90967-2) 3 0- 5 /HPF Bacteria, UA (test code = 92391-8) Few None seen Yeast, UA (test code = 66456-0) None seen Yeast with pseudohyphae, UA (test code = 56126-9) None seen Hyaline casts, UA (test code = 5796-8) 1 /LPF Lab Interpretation (test code = 31788-1) Abnormal [place] MethodistLactic acid dpudw7555-22-97 22:37:04* Test Item Value Reference Range Interpretation Comments Lactic acid (test code = 83617-3) 1.2 mmol/L 0.5-2.2 [place] MethodistPrepare fresh frozen ysjley5138-11-15 22:36:00* Test Item Value Reference Range Interpretation Comments Product name (test code = 25) Thawed Plasma Unit number (test code = 2560148) [id number] Product code (test code = 3092) [id number] Dispense status (test code = 24) Returned to not transfused Blood expiration date (test code = 302) [id number] Blood type code (test code = 811) 2570 Blood type (test code = 1314) AB POSITIVE Compatibility (test code = 6400) Not required [place] MethodistIonized calcium, xswygkns0245-28-30 22:03:33* Test Item Value Reference Range Interpretation Comments Ionized calcium, arterial (test code = 20002-8) 1.14 mmol/L 1.11-1 .32 [place] DqpxlalclEkegkapjap0375-90-05 20:01:24* Test Item Value Reference Range Interpretation Comments Fibrinogen (test code = 11637-6) 516 mg/dL 200-450 H Lab Interpretation (test code = 80949-4) Abnormal [place] SamlgztqoHpbyydemsu5409-01-85 19:50:46* Test Item Value Reference Range Interpretation Comments HCT (test code = 4544-3) 31.4 % 37-47 L Lab Interpretation (test code = 65967-9) Abnormal [place] MethodistPlatelet pfiyt2825-26-29 19:50:46* Test Item Value Reference Range Interpretation Comments Platelet count (test code = 51853-1) 326 150- 400 k/uL [place] MethodistArterial blood gas, dodybxgmw0121-86-05 19:48:20* Test Item Value Reference Range Interpretation Comments pH, arterial (test code = 2744-1) 7.39 7.35-7.45 pCO2, arterial (test code = 2019-8) 41 35- 45 mmHg pO2, arterial (test code = 2703-7) 257 80- 90 mmHg H Temperature, Celsius (test code = 8310-5) 35.7 Degrees C O2 saturation, arterial (test code = 2708-6) 100 % 95-100 pH, arterial corrected (test code = 83315-4) 7.41 pCO2, arterial corrected (test code = 14183-3) 38 mmHg pO2, arterial corrected (test code = 81844-5) 252 mmHg Base excess, arterial (test code = 1925-7) 0 -2 - 2 mEq- L Lab Interpretation (test code = 91104-4) Abnormal [place] MethodistGlucose level, xnvmfow5225-43-15 19:48:20* Test Item Value Reference Range Interpretation Comments Glucose, syringe (test code = 2345-7) 122 mg/dL 65-99 H Lab Interpretation (test code = 65120-0) Abnormal [place] MethodistHemoglobin, giigjsn4552-56-86 19:48:20* Test Item Value Reference Range Interpretation Comments Hemoglobin, syringe (test code = 718-7) 10.4 g/dL 12-16 L Lab Interpretation (test code = 62987-9) Abnormal [place] MethodistLactic acid, subtnmf5538-15-28 19:48:20* Test Item Value Reference Range Interpretation Comments Lactic acid, syringe (test code = 82201-0) 0.8 mmol/L 0.5-2.2 [place] MethodistPotassium, lxuewcc2520-49-25 19:48:20* Test Item Value Reference Range Interpretation Comments Potassium, syringe (test code = 2007) 4.9 3.5- 5.0 mEq/L [place] MethodistSodium level, lzcnblh3686-72-64 19:48:20* Test Item Value Reference Range Interpretation Comments Sodium, syringe (test code = 2947-0) 134 135- 148 mEq/L L Lab Interpretation (test code = 15965-5) Abnormal [place] BmknkppqvIibibl0388-49-91 17:55:27Marjan Mcguire 2019 5:56 PMAirwayDate/Time: 2019 5:46 PMPerformed by: Marjan Mcguirezed by: Anant Beebe MD Location: ORUrgency: ElectiveDifficult Airway: No Anesthesiologist: Bruna Serra MDResident/REGULATOR ASSEMBLER/AA: Marjan McguireuPerformed by: resident/REGULATOR ASSEMBLER/AAPreoxygenated with 100% O2: Yes C-spine Precautions Maintained [...] needed by surgeon) x1 attempt without complications. [place] MethodistArterial caid3110-25-77 17:52:07Marjan Mcguire 2019 5:54 PMArterial linePerformed by: Marjan Mcguireuthorized by: Anant Beebe MD Patient Location: ORStart Time: 2019 4:55 PMEnd Time: 2019 5:20 PMStaff: Anesthesiologist: Anant Beebe MD Resident/REGULATOR ASSEMBLER/AA: Marjan Mcguire Other Staff: Bruna Serra MD [...] without success- unable to thread. Attempt by REGULATOR ASSEMBLER x1 to L radial, +pulsatile blood flow but unable to thread. Attempt by 2 nd attending anesthesiologist to L axillary x2 with initial difficulty threading wire despite pulsatile blood flow. Ultrasound used for all attempts.[place] MethodistArterial uijx7401-98-77 08:36:42Anna Hale MD 2019 8:37 AMArterial linePerformed [...] tolerated the procedure well with no immediate complicationsCushing PgxllufioIqnkvu7983-07-51 08:35:38Anna Hale MD 2019 8:38 AMAirwayPerformed by: [...] attempt unsuccessful, small caliber artery.Clarence HanksCOVID-19 qualitative QXJ2946-49-35 20:09:14* Test Item Value Reference Range Interpretation Comments Interpretation (test code = 5224567) Negative results do not preclude 2019-nCoV infection and should not be used as the sole basis for treatment or other patient management decisions. Negative results must be combined with clinical observations, patient history, and epidemiological information. COVID-19 qualitative PCR result (test code = 77667-7) Not-Detect ed Not-Detected COVID-19 qualitative PCR (test code = 7070) See link below for P DF Lab Report Clarence HanksT4, sxcg3516-80-75 16:13:19* Test Item Value Reference Range Interpretation Comments T4, free (test code = 3024-7) 1.2 ng/dL 0.9-1.7 Clarence HanksThyroid stimulating ubqxrqd8229-38-37 16:13:19* Test Item Value Reference Range Interpretation Comments TSH (test code = 3016-3) 22.93 0.27- 4.20 uIU/mL H Lab Interpretation (test code = 20843-7) Abnormal Clarence HanksIR G Tube Exchange/Bovmmnt0226-93-87 16:54:17Hm Interface, Radiology Results - 11/26/2019 4:57 PM CDTPerforming Radiologist: Temo Alexis MDAssistants: NoneAnesthesia Type: Lidocaine 1% was used for local anesthetic. Moderate sedation was administered by the procedure nurse and monitored by the procedure physician for total wovx-tq-favp sedation time of 14 minutes.Pre Procedure Diagnosis: [...] the g uidewire, and a new, larger 18-Peruvian RUBEN gastrostomy catheter was then placed o [...] clogged gastrostomy catheter for a ne w 18-Peruvian RUBEN gastrostomy catheter, as detailed above. This catheter is ready for use.[facility]-[id number] MethodistAFB pfngttm9397-98-05 00:14:04* Test Item Value Reference Range Interpretation Comments AFB culture isolate (test code = 543-9) No growth after 6 we eks of incubation. Specimen InformationSpecimen Source: TissueSpecimen Site: Lung: Left chest wall skin B Clarence Haleyng autetlv0125-71-91 00:15:43* Test Item Value Reference Range Interpretation Comments Fungus culture isolate (test code = 1441) No growth af ter 4 weeks of incubation. Specimen Information Specimen Source: TissueSpecimen Site: Lung: Left chest wall skin B Clarence MethodistAlbumin doifb5188-17-18 18:07:04* Test Item Value Reference Range Interpretation Comments Albumin (test code = 1751-7) 2.1 g/dL 3.5-5 L Lab Interpretation (test code = 86014-5) Abnormal Cla[place] MethodistXR Picc Chest Ovxsnent8098-22-15 14:15:23Hm Interface, Radiology Results 11/05/2019 2:18 PM [...] pneumothorax, other support lines unchanged. [place] MethodistPICC fnhscvmot8266-32-35 12:48:37Kelly Gonzalez RN 11/05/2019 12:52 PMPICC insertionDate/Time: [...] vein ratio: 44% Line Characteristics: Catheter Brand: Claim Maps PowerPICC Provena External Cath eter Length (cm): 0 Internal Catheter Length (cm): 40 Total Catheter Length (cm): 40 Catheter Lot Number: [id number] Catheter Expiration Date: 08/21/2020 rocedure Details: Landmarks [...] Neeraj ated well, no immediate complicationsHouston MethodistIonized ncootaj6686-67-54 05:07:18* Test Item Value Reference Range Interpretation Comments pH (test code = 2753-2) 7.59 Ionized calcium (test code = 1995-0) 1.08 mmol/L 1.11-1.32 L Lab Interpretation (test code = 96819-5) Abnormal Clarence FuistMidline Unsuccessful Ksesxzb9268-83-43 15:38:33Kelly Gonzalez RN 11/04/2019 3:39 PMMidline Unsuccessful [...] of PICC kits used during procedure: 1[place] [employer] Unsuccessful Attempt - CZSP1381-48-80 15:36:01Kelly Gonzalez RN 11/04/2019 3:38 PMUnsuccessful Attempt [...] but was unsuccessful. Patient is right arm onlyCushing MethodistHepatic function mfjtk4564-03-22 07:51:47* Test Item Value Reference Range Interpretation Comments Albumin (test code = 1751-7) 2.1 g/dL 3.5-5 L Total bilirubin (test code = 1974-2) 0.9 mg/dL 0-1.2 Bilirubin direct (test code = 1967-7) 0.5 mg/dL 0-0.3 H Alkaline phosphatase (test code = 6768-6) 347 U/L 35-104 H Protein (test code = 2885-2) 6.8 g/dL 6.3-8.3 -[place] 4.6- 7.0 g/dL1 week 4.4-7.6 g/dL7 months-1year 5.1-7.3 g/dL1-2 years 5.6-7.5 g/dL>3 years 6.0-8.0 g/mM54-838 6.3-8.3 g/dL ALT (test code = 1742-6) 16 U/L 5-50 AST (test code = 1920-8) 40 U/L 10-35 H HALLIE (test code = HALLIE) Liver added and read back to Ping Elam in [id number] 11/04/2019 07:09 LMID. Lab Interpretation (test code = 52179-9) Abnormal [place] MethodistPotassium hrsvu8079-91-73 15:48:17* Test Item Value Reference Range Interpretation Comments Potassium (test code = 2823-3) 3.6 3.5- 5.0 mEq/L Clarence NajmuhfdoRekowo0590-23-58 14:55:05Elijah Jenkins CRNA 11/01/2019 2:56 PMAirwayDate/Time: 11/01/2019 2:26 AMPerformed by: Elijah Jenkins CRNAAuthorized by: Shira Woods MD Location: ORUrgency: ElectiveDifficult Airway: No Anesthesiologist: Shira Woods, SABINAesident/REGULATOR ASSEMBLER/AA: Elijah Jenkins CRNAPerformed by: resident/FREIDA /AAPreoxygenated with 100% O2: Yes C-spine Precautions Maintained Throughout: Y es Mask Ventilation: Not attemptedFinal Airway Type: Surgical airwayFinal Mihai gical Airway comment: Existing tracheostomyNumber of Attempts at Approach: 1 [place] MethodistMiscellaneous referral cvcb0421-76-09 16:58:17* Test Item Value Reference Range Interpretation Comments [facility] test name (test code = 2566) ?5-Oxoproline in urine sample [facility] test result (test code = 1730) see note Amino Acids Quantitative by LC- MS/MS, Urine [facility] test code [id number] Creatinine, Urine 51 mg/dL - - - [...] Interpretation Test developed and characteristics determined by [facility]. See Compliance Statement B: [employer]/CS - - - - - - - - - - - - - - - - - - - - - - - - - - - - - - Alpha-amino butyric acid, Urine <10 umol/g LOCAL AREA NETWORK ADMINISTRATOR (Ref Interval: <=25) - - - - - - - - - - - - - - - - - - - - - - - - - - - - - - Alpha-aminoadipic acid, Urine 79 umol/g LOCAL AREA NETWORK ADMINISTRATOR (Ref Interval: <=100) - - - - - - - - - - - - - - - - - - - - - - - - - - - - - - Alanine, Urine 677 umol/g LOCAL AREA NETWORK ADMINISTRATOR high (Ref Interval: 60-500) - - - - - - - - - - - - - - - - - - - - - - - - - - - - - - Anserine, Urine <25 umol/g LOCAL AREA NETWORK ADMINISTRATOR (Ref Interval: <=250) - - - - - - - - - - - - - - - - - - - - - - - - - - - - - - Arginine, Urine 59 umol/g LOCAL AREA NETWORK ADMINISTRATOR (Ref Interval: <=100) - - - - - - - - - - - - - - - - - - - - - - - - - - - - - - Argininosuccinic Acid, Urine 12 umol/g LOCAL AREA NETWORK ADMINISTRATOR (Ref Interval: <=40) - - - - - - - - - - - - - - - - - - - - - - - - - - - - - - Asparagine, Urine 108 umol/g LOCAL AREA NETWORK ADMINISTRATOR (Ref Interval: 25-180) - - - - - - - - - - - - - - - - - - - - - - - - - - - - - - Aspartic Acid, Urine <25 umol/g LOCAL AREA NETWORK ADMINISTRATOR (Ref Interval: <=25) - - - - - - - - - - - - - - - - - - - - - - - - - - - - - - Beta-amino isobutyric acid, Urine 27 umol/g LOCAL AREA NETWORK ADMINISTRATOR (Ref Interval: <=1200) - - - - - - - - - - - - - - - - - - - - - - - - - - - - - - Beta-alanine Urine <125 umol/g LOCAL AREA NETWORK ADMINISTRATOR (Ref Interval: <=125) - - - - - - - - - - - - - - - - - - - - - - - - - - - - - - Citrulline, Urine <5 umol/g LOCAL AREA NETWORK ADMINISTRATOR (Ref Interval: <=15) - - - - - - - - - - - - - - - - - - - - - - - - - - - - - - Cystathionine, Urine 138 umol/g LOCAL AREA NETWORK ADMINISTRATOR high (Ref Interval: <=60) - - - - - - - - - - - - - - - - - - - - - - - - - - - - - - Cystine, Urine 93 umol/g LOCAL AREA NETWORK ADMINISTRATOR (Ref Interval: <=150) - - - - - - - - - - - - - - - - - - - - - - - - - - - - - - Ethanolamine, Urine 1092 umol/g LOCAL AREA NETWORK ADMINISTRATOR high (Ref Interval: 100-510) - - - - - - - - - - - - - - - - - - - - - - - - - - - - - - Gamma-amino butyric acid, Urine <25 umol/g LOCAL AREA NETWORK ADMINISTRATOR (Ref Interval: <=25) - - - - - - - - - - - - - - - - - - - - - - - - - - - - - - Glutamic Acid, Urine 42 umol/g LOCAL AREA NETWORK ADMINISTRATOR (Ref Interval: <=52) - - - - - - - - - - - - - - - - - - - - - - - - - - - - - - Glutamine, Urine 643 umol/g LOCAL AREA NETWORK ADMINISTRATOR (Ref Interval: 100-665) - - - - - - - - - - - - - - - - - - - - - - - - - - - - - - Glycine, Urine 921 umol/g LOCAL AREA NETWORK ADMINISTRATOR (Ref Interval: [phone]) - - - - - - - - - - - - - - - - - - - - - - - - - - - - - - Histidine, Urine 727 umol/g LOCAL AREA NETWORK ADMINISTRATOR (Ref Interval: 80-1130) - - - - - - - - - - - - - - - - - - - - - - - - - - - - - - Homocitrulline, Urine 26 umol/g LOCAL AREA NETWORK ADMINISTRATOR (Ref Interval: <=40) - - - - - - - - - - - - - - - - - - - - - - - - - - - - - - Hydroxylysine, Urine 26 umol/g LOCAL AREA NETWORK ADMINISTRATOR (Ref Interval: <=30) - - - - - - - - - - - - - - - - - - - - - - - - - - - - - - Hydroxyproline, Urine <10 umol/g LOCAL AREA NETWORK ADMINISTRATOR (Ref Interval: <=30) - - - - - - - - - - - - - - - - - - - - - - - - - - - - - - Isoleucine, Urine 30 umol/g LOCAL AREA NETWORK ADMINISTRATOR (Ref Interval: <=45) - - - - - - - - - - - - - - - - - - - - - - - - - - - - - - Leucine, Urine 72 umol/g LOCAL AREA NETWORK ADMINISTRATOR high (Ref Interval: <=45) - - - - - - - - - - - - - - - - - - - - - - - - - - - - - - Lysine, Urine 245 umol/g LOCAL AREA NETWORK ADMINISTRATOR (Ref Interval: <=355) - - - - - - - - - - - - - - - - - - - - - - - - - - - - - - Methionine, Urine 50 umol/g LOCAL AREA NETWORK ADMINISTRATOR high (Ref Interval: <=20) - - - - - - - - - - - - - - - - - - - - - - - - - - - - - - Ornithine, Urine 55 umol/g LOCAL AREA NETWORK ADMINISTRATOR high (Ref Interval: <=30) - - - - - - - - - - - - - - - - - - - - - - - - - - - - - - Phenylalanine, Urine 203 umol/g LOCAL AREA NETWORK ADMINISTRATOR high (Ref Interval: 15-85) - - - - - - - - - - - - - - - - - - - - - - - - - - - - - - Proline, Urine 24 umol/g LOCAL AREA NETWORK ADMINISTRATOR (Ref Interval: <=35) - - - - - - - - - - - - - - - - - - - - - - - - - - - - - - Sarcosine, Urine <25 umol/g LOCAL AREA NETWORK ADMINISTRATOR (Ref Interval: <=25) - - - - - - - - - - - - - - - - - - - - - - - - - - - - - - Serine, Urine 858 umol/g LOCAL AREA NETWORK ADMINISTRATOR high (Ref Interval: 90-470) - - - - - - - - - - - - - - - - - - - - - - - - - - - - - - Taurine, Urine 45 umol/g LOCAL AREA NETWORK ADMINISTRATOR (Ref Interval: <=3200) - - - - - - - - - - - - - - - - - - - - - - - - - - - - - - Threonine, Urine 203 umol/g LOCAL AREA NETWORK ADMINISTRATOR (Ref Interval: 25-250) - - - - - - - - - - - - - - - - - - - - - - - - - - - - - - Tryptophan, Urine 161 umol/g LOCAL AREA NETWORK ADMINISTRATOR high (Ref Interval: 15-95) - - - - - - - - - - - - - - - - - - - - - - - - - - - - - - Tyrosine, Urine 101 umol/g LOCAL AREA NETWORK ADMINISTRATOR (Ref Interval: 15-150) - - - - - - - - - - - - - - - - - - - - - - - - - - - - - - Valine, Urine 95 umol/g LOCAL AREA NETWORK ADMINISTRATOR high (Ref Interval: <=55) Test performed by:[facility] [place] [id number] [place] MethodistSodium otrsf9326-42-10 15:59:46* Test Item Value Reference Range Interpretation Comments Sodium (test code = 2951-2) 133 135- 148 mEq/L L Lab Interpretation (test code = 39539-6) Abnormal [place] MethodistThyroperoxidase ghlezons2502-28-86 02:22:49* Test Item Value Reference Range Interpretation Comments Thyroperoxidase Ab (test code = 97096-0) 1.0 0.0- 9.0 IU/m L [place] KedsuzbrkIzjjvfnrllmhvb5272-56-87 02:22:35* Test Item Value Reference Range Interpretation Comments Erythropoietin (test code = 15600-6) 467.2 2.6- 18.5 mIU/mL H Lab Interpretation (test code = 30765-0) Abnormal [place] MethodistOsmolality, xkqos3756-45-19 18:57:40* Test Item Value Reference Range Interpretation Comments Osmolality, urine (test code = 2695-5) 359 50- 1,400 mOsm/ kg [place] MethodistFerritin djkdh8826-51-26 03:42:51* Test Item Value Reference Range Interpretation Comments Ferritin level (test code = 2276-4) 550 ng/mL 13-150 H Lab Interpretation (test code = 07828-8) Abnormal [place] MethodistPeripheral flggk2148-42-10 15:43:16* Test Item Value Reference Range Interpretation Comments Peripheral smear (test code = 1894) Done Peripheral smear is located in Hematology Laboratory, [facility]. [place] MethodistImmunoglobulin L4654-51-91 05:20:04* Test Item Value Reference Range Interpretation Comments IgE (test code = 17760-4) 165.4 0.0- 100.0 IU/mL H Lab Interpretation (test code = 96634-6) Abnormal [place] MethodistSedimentation oiid7880-93-22 02:28:37* Test Item Value Reference Range Interpretation Comments Sedimentation rate (test code = 23024-2) 101 0- 20 mm/hr H Lab Interpretation (test code = 53798-9) Abnormal [place] MethodistCortisol, 60 ntfbmge0027-67-26 18:20:20* Test Item Value Reference Range Interpretation Comments Cortisol, 60 Min (test code = 03159-5) 16 ug/dL Normal response to 0.25 mg 1-24 ACTH (cosyntropin) is a peak cortisol concentration of greater than 14 ug/dL at either 30 minutes or 60 minutes post-stimulation. [place] MethodistAdrenocorticotropic qxqyjlf5836-69-98 14:49:33* Test Item Value Reference Range Interpretation Comments Adrenocorticotropic hormone (test code = 52789-3) 18.2 pg/mL 7.2- 63.3 [place] MethodistCortisol level, pavkfo3743-43-12 14:27:03* Test Item Value Reference Range Interpretation Comments Cortisol, random (test code = 2143-6) 12 ug/dL Reference Ranges are not established for non-timed Cortisol levels.Reference Range for Timed Cortisol: 6 - 10 AM 6 - 18 ug/dl 4 - 8 PM 3 - 11 ug/dl [place] MethodistUs duplex venous upper gisbbmwed8919-29-72 19:24:00Interface, Radiology Results In - 10/23/2019 7:25 PM CDT Vascular Ultrasound Laboratory Upper Extremity Venous Report [address] [address] [facility].Name: EMILY BAUER Pat.ID: [id number] .Date: 10/23/2019 Refer.MD: LUKE SPARKS MD Exam Time: 3:51:00 PM Study Type:UE Venous Height: 66in Weight: 132lb BSA: 1.68 m2 Age: 9 1950,68Y Sex: FEMALE Sonogrphr: Jose Maria Bernardo RVT, ELYSEOH Pat. Stat.:Intx kristal Room: BS4498-G Tape Vol: JOSHUA, CPT - 4: 06113 Echo Event ID:[id number] Order ID: [id number] Reason for Study:Right arm swelling. PMH of [...] FINDINGS: -Signed 10/23/2019 07:24 PMLeonides Glasgow MD, VICushing MethodistOva & parasites, concentrated qcqofiwuvcz4557-71-17 15:12:31* Test Item Value Reference Range Interpretation Comments Ova & parasites concentrated exam (test code = 1853) No Ova or Parasites seen. Specimen InformationSpecimen Source: StoolSpecimen Site: Nonpreserved [place] MethodistOva & parasites, trichrome jggdt9737-67-10 15:12:31* Test Item Value Reference Range Interpretation Comments Ova & parasites trichrome stain (test code = 1858) No ova or Par asites seen. Specimen InformationSpecimen Source: Sto olSpecimen Site: Nonpreserved [place] MethodistOva & parasites, direct kztkqumckcs8933-61-65 05:31:46* Test Item Value Reference Range Interpretation Comments Ova & parasites direct exam (test code = 1855) No Ova or Parasites seen. Specimen InformationSpecimen Source: StoolSpecimen Site: Nonpreserved [place] MethodistOva & parasites, gross kmyxdseskdg1377-28-74 05:31:46* Test Item Value Reference Range Interpretation Comments Ova & parasites gross exam (test code = 1857) Green liquid Specimen InformationSpecimen Source: StoolSpecimen Site: Nonpreserved [place] AxtlhacieL66435-90-01 19:13:27* Test Item Value Reference Range Interpretation Comments T3 (test code = 3053-6) 77 ng/dL 80-200 L Lab Interpretation (test code = 04590-6) Abnormal [place] Restoration difficile gsrut3319-73-21 08:52:02* Test Item Value Reference Range Interpretation Comments Clostridium difficile toxin (test code = 1085) No Clos tridium difficle toxin present Specimen Information Specimen Source: StoolSpecimen Site: Nonpreserved [place] RestorationBeta tzenxobdkevuhwp8995-47-40 08:07:40* Test Item Value Reference Range Interpretation Comments Beta hydroxybutyrate (test code = 6873-4) 0.07 mmol/L 0.02-0.27 [place] Alejandraputum vmqnlqy2890-57-39 08:41:38* Test Item Value Reference Range Interpretation Comments Sputum culture isolate (test code = 2234) No growth after 2 days. Specimen InformationSpecimen Source: Tracheal aspirateSpecimen Site: Induced [place] RestorationDE Hepatobiliary (HIDA Scan)2019-10-19 18:12:55Hm Interface, Radiology Results - 10/19/2019 6:15 PM CDTPROCEDURE: NM HEPATOBILIARY (HIDA SCAN)INDICATION: RUQ pain fever elev WBC Powell's signCOMPARISON: Hepatic ultrasound 10/19/2019TECHNIQUE: The patient was injected with 5 mCi of Lt-24b-Mtyterdk followed by dynamic imaging of the abdomen for 60 minute s.FINDINGS: There is physiological hepatic uptake and biliary excretion of radio tracer into the small bowel followed by normal gallbladder filling.IMPRESSION:No scintigraphic evidence of acute cholecystitis or common bile duct obstruction.Paolo [id number] MethodistCentral Line Ixazlfuqr5920-02-26 15:28:58Chip Lundberg MD 10/19/2019 6:28 [facility] CAMPUSentral Line InsertionPerformed by: Priyank Lackey MDAuthorized by: [...] postion confirmed, no complicationDr Tamika [place] MethodistManual rftbafofmzds5032-35-08 13:17:32* Test Item Value Reference Range Interpretation Comments Manual differential (test code = 96096-0) PERFORMED Neutrophils (test code = 79793-7) 71.0 % 39-69 H Corrected result; previously reported as 73.5 on 10/17/2019 at 15:46 by JP1 Lymphocytes (test code = 45296-2) 6.0 % 25-45 L Corrected result; previously reported as 6.6 on 10/17/2019 at 15:46 by JP1 Monocytes (test code = 26959-9) 7.0 % 0-10 Corrected result; previously reported as 7.3 on 10/17/2019 at 15:46 by JP1 Eosinophils (test code = 40821-5) 11.0 % 0-5 H Corrected result; previously reported as 11.3 on 10/17/2019 at 15:46 by JP1 Basophils (test code = 26549-0) 0.0 % 0-1 Corrected result; previously reported as 0.3 on 10/17/2019 at 15:46 by JP1 Myelocytes (test code = 749-2) 3 % Promyelocytes (test code = 783-1) 1 % Blasts (test code = 709-6) 1 % HH B last and manual differential results called to and read back by Emily Henderson/LARRY at 10/19/2019 10:41 by sltsr. Platelet slide review (test code = 26074-3) Increased A Toxic granulation (test code = 803-7) Slight Neutrophils, vacuolated (test code = 20639-6) Slight Anisocytosis (test code = 702-1) Moderate Polychromasia (test code = 86524-3) Moderate Spherocytes (test code = 802-9) Occasional Enlarged platelets (test code = 36714-4) Moderate A Giant platelets (test code = 5908-9) Occasional Lab Interpretation (test code = 77581-1) Abnormal Clarence FuistUS Ebamtpn3149-01-37 10:58:54Hm Interface, Radiology Results 10/19/2019 11:01 AM [...] are redemonst rated.IMPRESSION:Sonographic findings suspicious for acute cholecystitis.[id number] _PS03[place] MethodistBlood smear buzszlo1394-26-72 10:43:02* Test Item Value Reference Range Interpretation Comments Blood smear consult (test code = 982) Done Neutrophilic leukocytosis with absolute eosinophilia and absolute monocytosis with few immature monocytic cells and rare blast (1%). If monocytosis persists, consider hematology evaluation if clinically indicated.Reviewed by Tasha PalWound vac gqwwhoeda9884-13-82 11:44:38Dinh Lee 10/17/2019 11:56 AMWound vac placementDate/Time: [...] with no immediate co mplications [facility] MethodistBilirubin txtpgr9525-16-99 04:21:16* Test Item Value Reference Range Interpretation Comments Bilirubin direct (test code = 1968-7) 0.4 mg/dL 0-0.3 H HALLIE (test code = HALLIE) recollect___K___ results joe led to and read back by SHIRA GUARDADO /WT09_(name/location)at 10/17/2019 04:13 (date/time) by IVONNE_. Lab Interpretation (test code = 82925-2) Abnormal [place] MethodistCreatine kinase, total (CPK)2019-10-17 04:21:16* Test Item Value Reference Range Interpretation Comments Creatine kinase (test code = 2157-6) 15 U/L 26-192 L HALLIE (test code = HALLIE) recollect___K___ results joe led to and read back by SHIRA GUARDADO /WT09_(name/location)at 10/17/2019 04:13 (date/time) by IVONNE_. Lab Interpretation (test code = 96259-1) Abnormal [place] MethodistCBC avztoojj6476-61-23 03:43:28* Test Item Value Reference Range Interpretation Comments WBC (test code = 18085-3) 21.24 4.50- 11.00 k/uL H RBC (test code = 30069-2) 2.27 m/uL 4.2-5.5 L HGB (test code [...] L RDW - SD (test code = 99834-3) 59.7 fL 37-55 H MPV (test code = 47939-4) 9.7 fL 8.8-13.2 Platelet count (test code = 66045-1) 438 150- 400 k/uL H Nucleated RBC (test code = 58194-0) 0.00 /100 WBC HALLIE (test code = HALLIE) recollect Lab Interpretation (test code = 90703-1) Abnormal [place] MethodistCT Chest Wo Contrast Abdomen Wo Contrast [...] as detailed. Please see report for detail.*HMRM-WPHYMDL [place] MethodistCT Head Wo Hhlkfgte1804-33-92 18:07:11Hm Interface, Radiology Results 10/16/2019 6:10 PM [...] nges of the left maxillary and sphenoid sinuses.[place] MethodistDigoxin level 2019-10-16 02:52:26* Test Item Value Reference Range Interpretation Comments Digoxin (test code = 13337-5) 1.1 ng/mL 0.8-2 For valid Digoxin results, at least 6 hours should elapse between time of last dose and collection of blood.Otherwise, result may be false high.Therapeutic Range:0.8 - 2.0 ng/mL [place] MethodistWound vac gvqanioxy0008-20-17 13:47:45AloDinh rodriguez 10/16/2019 1:40 AMWound vac placementDate/Time: [...] Undermining: No Tunneling/Sinus: No Granul ation color: [place] Drainage: Serosanguinous Drainage amount: Scant Type of foam: Prevena Size of foam: Customizeable, approximately 34cm Malodorous?: N o Wound Vac Settings: Status: ContinuousPost-procedure: Patient tolerance: Patient tolerated the procedure well with no immediate complications Complic ations: NoneHouston MethodistTissue xzgdirr6984-24-45 01:46:01* Test Item Value Reference Range Interpretation Comments Tissue culture isolate (test code = 29831-9) No growth after 3 days . Specimen InformationSpecimen Source: TissueSpecimen Site: Lung: Left chest wall skin B [place] MethodistXR Abdomen 1 Yphxsjjg6589-84-89 21:22:58Hm Interface, Radiology Results 10/10/2019 9:26 PM CDTExamination: XR ABDOMEN 1 VW PORTABLEClinical History: DistensionComparison: None.Findings:Single frontal view of the abdomen is obtained. Bowel gas pattern is nonspecific with paucity of small bowel gas. No bowel distention is seen. No free air is seen. Pelvic surgical clips are noted.IMPRESSION:1. Nonspecific bowel gas pattern with paucity of small bowel gas.[facility]-[id number] MethodistIonized calcium, kfmxrn0297-77-10 16:18:39* Test Item Value Reference Range Interpretation Comments Ionized calcium, venous (test code = 19559-2) 1.19 mmol/L 1.11-1.3 2 [place] MethodistO2 saturation, soajdp7590-80-98 16:18:28* Test Item Value Reference Range Interpretation Comments Hemoglobin, venous, syringe (test code = 48057-2) 8.4 g/dL 12-1 6 L O2 saturation, venous (test code = 2711-0) 82 % 40-70 H Lab Interpretation (test code = 58364-0) Abnormal [place] MethodistVenous blood gas, gzevmyowz6112-02-98 16:18:28* Test Item Value Reference Range Interpretation [...] H pH, venous corrected (test code = 55662-1) 7.19 pCO2, venous corrected (test code = 63102-7) 62 mmHg pO2, venous corrected (test code = 90204-6) 49 mmHg Base excess, venous (test code = 1927-3) -5 meq/L -2-2 L Lab Interpretation (test code = 06214-7) Abnormal [place] OhucevgjbVuusut9104-12-16 13:07:39YeNayeli shaffer MD 10/08/2019 1:09 PMAirwayPerformed by: Nayeli Solo MDAuthorized by: Gilles Nazario MD Location: ORUrgency: ElectiveDifficult Airway: No Anesthesiologist: Gilles Nazario, SABINAesident/REGULATOR ASSEMBLER/AA: Nayeli Solo MDPerformed by: anesthesiologist and resident/REGULATOR ASSEMBLER/AAMask Ventilation: Not attemptedAirway interventions: Bronchial victor manuel.Number of Attempts at Approach: 1 Patient is intubated with 8.0 ETT, bronchial victor manuel is placed into the left bronchusHouston MethodistSodium level, urine, qpxugh1810-04-96 19:44:10* Test Item Value Reference Range Interpretation Comments Sodium, urine, random (test code = 74856-1) <20 mEq/L [place] MethodistCreatinine level, urine, ejwcbc8357-93-58 19:29:12* Test Item Value Reference Range Interpretation Comments Creatinine, urine, random (test code = 32848-4) 66 mg/dL [place] MethodistUrea nitrogen, urine, hjelfw8583-14-87 19:29:09* Test Item Value Reference Range Interpretation Comments Urea nitrogen, urine, random (test code = 3095-7) 1030 mg/dL [place] MethodistChloride level, keozoia7997-28-12 21:46:02* Test Item Value Reference Range Interpretation Comments Chloride, syringe (test code = 1069) 111 98- 112 mEq/L [place] MethodistOR [place] > I Fqmk7745-94-18 21:31:02Hm Interface, Radiology Results Incoming 10/05/2019 9:34 PM CDTEXAMINATION: OR [place] > 1 HOURC-arm fluoroscopy was requested in OR. LOCATION: [facility] #6PROCEDURE: Left Arm VenogramSTART TIME: 1130FINISH TIME: 1240FLUORO TIME: 1.1DOSE (mgy): 7.9TECH(S): ABIMPRESSION:Intraoperative fluoroscopic images. Radiologist was not present during the examination.Separate operative report will be issued by the physician performing the procedure.[id number] MethodistTransthoracic Echocardiogram Limited or Follow Up (w Contrast if needed)2019-10-05 16:19:00 Interface, Radiology Results In 10/05/2019 4:20 PM CDT Echocardiography Report [address]Name: EMILY BAUER Pat.ID: [id number] .Date: 10/05/2019 Refer.MD: LUKE SPARKS MD Exam Time: 2:12:00 PM Study Type:Routine Echo Height: 66in Weight: 132lb BSA: 1.68 m2 Age: [age]Y Sex: FEMALE BP: 94/51 HR: 58 bpm Sonogrphr: ISAI Regan Pat. Stat.:Inpatient Room: [place] [address] Study S tatus:Final Echo Event ID:[id number] Order ID: [id number] Reason for Study:Pulmonary embolism, eval right heart [...] RAP of 10 mmHg. MEASUREMENTS:--- 2DParasternal Long [place] Ao An 1.6 cm LVPWd 0.99 cm [...] 32 mmHg Signed 10/05/2019 04:19 Britney Irby MDPerry County Memorial Hospitalpaulina MethodistVancomycin level, wymvvh3521-61-34 15:41:31* Test Item Value Reference Range Interpretation Comments Vancomycin, random (test code = 58763-8) 9.5 ug/mL [place] MethodistActivated clotting kxee5238-26-52 12:51:43* Test Item Value Reference Range Interpretation Comments Activated clotting time (test code = 5298) 218 96- 152 sec H Cage/Vault Supervisor Name: Jason Richard ID: [id number] Lab Interpretation (test code = 64409-3) Abnormal [place] MethodistArterial cwlx8238-13-90 12:35:11FoEdward givens MD 10/05/2019 12:35 PMArterial linePerformed [...] procedure well with no immediate complicationsClarence Fuist Hmbrlhkjqobro3835-86-15 04:26:07* Test Item Value Reference Range Interpretation Comments Triglycerides (test code = 2571-8) 136 mg/dL <150 [place] MethodistChloride level, urine, nddvmf9915-39-70 21:25:45* Test Item Value Reference Range Interpretation Comments Chloride, urine, random (test code = 90222-3) <20 mEq/L [place] MethodistPotassium, urine, cymcpr5128-89-13 20:52:04* Test Item Value Reference Range Interpretation Comments Potassium, urine, random (test code = 2828-2) 39.1 mEq/L [place] MethodistVancomycin level, skjsrz0572-13-45 11:27:54* Test Item Value Reference Range Interpretation Comments Vancomycin, trough (test code = 96114-9) 26.0 ug/mL 10-20 Therapeutic Ranges: Peak 30.0 - 40.0 ug/mL Trough 10.0 - 20.0 ug/mL Lab Interpretation (test code = 91612-9) Abnormal [place] MethodistTPA/Dornase Administration via chest tcqs5917-98-25 11:23:04 Robyn Pacheco PA 10/01/2019 11:24 AMTPA/Dornase [...] procedure: Luis Angel erated well, no immediate complicationsHouchanning home MethodistTPA/Dornase Administration via chest rfrv8150-30-99 12:22:58Robyn Pacheco PA 09/30/2019 12:24 PMTPA/Dornase Administration [...] of procedure: Tolerated well , no immediate complicationsHouchanning home MethodistTPA/Dornase Administration via chest tvko2307-32-08 10:22:08Robyn Pacheco PA 09/29/2019 10:24 AMTPA/Dornase Administration [...] procedure: Tolerated well, no immediate complicationsHoupaulina MethodistNocardia jywcqtw9822-74-79 08:54:30* Test Item Value Reference Range Interpretation Comments Nocardia culture isolate (test code = 1808) No Nocardia isol ated after 7 days. Specimen InformationSpecimen Source: Bronchial alveolar lavageSpecimen Site: Lung: left lung [place] MethodistTPA/Dornase administration via chest zrtb1973-87-10 10:41:54 Robyn Pacheco PA 09/28/2019 10:45 AMTPA/Dornase [...] tolerance of procedure: Tolerated well, no immediate complicationsHouchanning home MethodistTPA/Dornase Administration via chest hdwk6788-12-25 10:58:57Robyn Pacheco PA 09/27/2019 11:01 AMTPA/Dornase Administration [...] tolerance of procedure: Tolerated well, no immediate complicationsCushing MethodistCT Chest W Contrast Abdomen W Contrast Pelvis W Wbrvnhxc4584-04-24 15:47:16Hm Interface, Radiology Results 09/26/2019 3:50 PM [...] spleen, pancreas, gallbladder, adrenals are normal.5.Mild left margarita l cortical scarring is stable. Otherwise the [...] hemithoracic volume loss. Otherwise overall s table [facility]-OY43PDOYIntjkmj MethodPlains Regional Medical Centerespiratory pathogen panel 2019-09-23 18:40:03* Test [...] Detected Bordetella pertussis PCR (test code = 4769177) Not Detected Bordetella parapertussis PCR (test code = 8539695) Not Detected Chlamydia pneumoniae PCR (test code = 3753) Not Detected Mycoplasma pneumoniae PCR (test code = 7110) Not Detected Influenza A no sub type PCR (test code = 7127) Not Reported [place] NickieDenzel Insert Pleura Kmixyvyd1349-17-71 14:33:38Hm Interface, Radiology Results 09/22/2019 2:36 PM [...] was made. Using ultrasound guidance, a 5 [place]uvian Yueh catheter was advanc ed into the [...] fluid collection for TPA administration as described. *[facility]-[id number] Restoration Yrvslb5507-90-56 17:23:36Cale Olivas CRNA 09/20/2019 5:24 PMAirwayDate/Time: 09/20/2019 4:40 PMPerformed by: Cale Olivas CRNAAuthorized by: Anil Chapa MD Location: ORUrgency: ElectiveDifficult Airway: No Anesthesiologist: Anil Chapa MDResident/REGULATOR ASSEMBLER/AA: Cale Olivas CRNAPerformed by: resident/REGULATOR ASSEMBLER/AAPreoxygenated with 100% O2: Yes Mask Ventilation: Easy [...] 1[facility] MethodistCT Chest W Contrast Abdomen W Xsbapvub6302-05-84 18:02:30Hm Interface, Radiology Results 09/19/2019 6:05 PM [...] intraperitoneal air seen on the prior examination. [facility]-CB34BDKMAwzhvvm MethodistVitamin B1 level, whole yimpo9029-57-51 16:49:33* Test Item Value Reference Range Interpretation Comments Vitamin B1 (test code = 25274-7) 30 nmol/L 70-180 L INTERPRETIVE INFORMATION: Vitamin B1, Whole BloodThis assay measures the concentration of thiamine diphosphate (TDP), the primary active form of vitamin B1. Approximately 90 percent of vitamin B1 present in whole blood is TDP. Thiamine and thiamine monophosphate, which comprise the remaining 10 percent, are not measured.Test developed and characteristics determined by [facility]. See Compliance Statement B: [employer]/CSPerformed by [facility],[address] [place] [address] wdq.[employer], Armen Cabrera MD, Lab. Director Lab Interpretation (test code = 39884-2) Thuan Zavala020-06-27 02:17:07* Test Item Value Reference Range Interpretation Comments Troponin (test code = 76442-0) 0.796 ng/mL 0-0.04 H In patients suspected [...] 0.020 ng/mL Lab Interpretation (test code = 66215-1) Abnormal [place] MethodistVitamin A level, plasma or dpufv8777-64-01 09:46:02* Test Item Value Reference Range Interpretation Comments Vitamin A (retinol) (test code = 2923-1) 0.12 mg/L 0.3-1.2 L Retinyl palmitate (test code = 27053-3) <0.02 0-0.1 Vitamin A interpretation (test code = 37690-6) See Note Retinol greater than 0.3 mg/L is typically associated with adequate liver stores in adults, and is within normal limits for children. Retinol less than 0.10 mg/L may indicate depleted liver stores and severe deficiency.Test developed and characteristics determined by [facility]. See Compliance Statement B: [employer]/CSPerformed by [facility],[address] [place] [address] phc.YooLotto, Armen Cabrera MD, Lab. Director Lab Interpretation (test code = 74346-8) Abnormal [place] MethodistZinc level, pihlt2576-79-17 23:53:56* Test Item Value Reference Range Interpretation Comments Zinc (test code = 30652-3) 10.3 ug/dL 60-120 L I NTERPRETIVE INFORMATION: [...] absorption. Test developed and characteristics determined by [facility]. See Compliance Statement B: [employer]/CSPerformed by [facility],[address] [address] dzn.YooLotto, Armen Cabrera MD, Lab. Director Lab Interpretation (test code = 48138-8) Abnormal [facility] HospitalTransthoracic Echocardiogram Complete, (w Contrast, Strain and 3D if needed)2019-09-16 17:11:00Interface, Radiology Results In - 09/16/2019 5:11 PM CDT Echocardiography Report [address] [facility], [facility] [address], [place] [address] Pat.Name: EMILY BAUER Pat.ID: [id number] .Date: 09/16/2019 Refer.MD: LUKE SPARKS MD Exam Time: 1:48:00 PM Study Type:Routine Echo Height: 66in Weight: 130lb BSA: 1.67 m2 Age: 9 1950,68Y Sex: FEMALE BP: 124/60 HR: 93 bpm Sonogrphr: ISAI Hurst Pat. Stat.:Inpatient Room: [facility] Study Status:Final Echo Event ID:[id number] Order ID: [id number] Reason for Study:Atrial fibrillationProcedures: 2D Echo, Colorflow [...] RAP of 15 mmHg. MEASUREMENTS: 2DParasternal Long [place] Ao An 2 cm LVPWd 0.8 cm [...] 25 ml/m2 Signed 09/16/2019 05:11 Deja Colunga M.D.[facility], senvu9964-42-62 13:48:40* Test Item Value Reference Range Interpretation [...] third trimester).Test developed and characteristics determined by [facility]. See Compliance Statement B: [employer]/CSPerformed by [facility],[address] [facility] [place] [address] sul.YooLotto, Armen Cabrera MD, Lab. Director Lab Interpretation (test code = 57072-7) Abnormal [facility] lcivhdglv5058-27-21 15:26:56Baldemar Ames RN 09/15/2019 3:31 PMPICC insertionDate/Time: [...] Vess el Size (mm): 2.6. Indication: Known correction IV therapy and TPN Location: Right basilic Device Type: Non-valved Catheter size: 4 Fr Catheter to vein ratio: 58% Line Characteristics: Catheter Brand: BARD PROVENA POWER PICC External Catheter Length (cm): 0 Internal Catheter Length (cm): 33 Total Ca theter Length (cm): 33 Catheter Lot Number: [id number] Catheter Expiration Anderson e: 1Procedure Details: Landmarks [...] Tolerated well, no immediate complicationsClarence FuistMicroalbumin, urine, wvqqsr4327-58-47 21:07:00* Test Item Value Reference Range Interpretation Comments Total volume, urine (test code = 37863-3) No volume mL Urine creatinine concentration (test code = 43151-8) 70 mg/dL Urine microalbumin concentration (test code = 67620-5) 20.6 mg/dL Urine microalbumin/creatinine ratio (test code = 18141-8) 294 mg/g 0-30 H Lab Interpretation (test code = 15481-1) Abnormal Clarence HanksProtein, urine, uiiuco2736-54-40 20:39:46* Test Item Value Reference Range Interpretation Comments Protein, urine random (test code = 2888-6) 89 mg/dL Clarence HanksVitamin D 25 hydroxy radlm7352-86-87 15:55:26* Test Item Value Reference Range Interpretation [...] alternative methods. Lab Interpretation (test code = 89011-8) Abnormal [place] RestorationVitamin B12 sjydy5572-91-94 14:31:29* Test Item Value Reference Range Interpretation Comments Vitamin B12 (test code = 2132-9) >1600 211-946 H Significant overlap exists between normal and deficiency states.However, most patients with deficiencies will have Serum B12 <200 pg/mL. Lab Interpretation (test code = 87749-8) Abnormal Clarence HanksLDH [facility] znptx9618-58-53 22:45:52* Test Item Value Reference Range Interpretation Comments Fluid type (test code = 21272-4) Pleural LDH, fluid (test code = 64700-9) 4475 U/L The reference interval(s) and other method performance specifications have not been established for this body fluid. The test results must be integrated into the clinical context for interpretation.This test has been modified from the manufacturers instructions. The performance characteristics were determined by [facility] in a manner consistent with CLIA requirements. This test has not been cleared or approved by the U.S. Food and Drug Administration. Clarence HankspH, [facility] zholo8914-78-49 22:40:10* Test Item Value Reference Range Interpretation Comments Fluid type (test code = 77426-1) Pleural pH, fluid (test code = 2748-2) 8.00 Reference ranges are not established for Miscellanous specimens. [place] MethodistAmylase level, [facility] izfwn6202-49-14 22:40:10* Test Item Value Reference Range Interpretation Comments Fluid type (test code = 68549-0) Pleural Amylase, fluid (test code = 1795-4) 222 U/L The reference interval(s) and other method performance specifications have not been established for this body fluid. The test results must be integrated into the clinical context for interpretation.This test has been modified from the manufacturers instructions. The performance characteristics were determined by [facility] in a manner consistent with CLIA requirements. This test has not been cleared or approved by the U.S. Food and Drug Administration. [place] MethodistArterial mpmp5430-09-14 22:21:48Sindy Swan MD 09/13/2019 10:22 PMArterial linePerformed by: Sindy Swan MDAuthorized by: Juan Hoyt MD Patient Location: ORStart Time: 09/13/2019 9:20 AMStaff: Anesthesiologist: Juan Pena MD Resident/REGULATOR ASSEMBLER/AA: Sindy Swan MD Performed by: Resident/REGULATOR ASSEMBLER/AAPre-procedure: patient identified, IV checked, site and side [...] procedure well with no immediate compli cationsHouston OtikjyyuwZjhlyc6202-52-85 22:11:17AJuan Crandall MD 09/13/2019 11:02 PMAirwayDate/Time: 09/13/2019 9:30 AMPerformed by: Sindy Swan MDAuthorized by: Juna Pena MD Location: ORUrgency: ElectiveDifficult Airway: No Anesthesiologist: Juan Pena, SABINAesident/REGULATOR ASSEMBLER/AA: Sindy Swan MDPerformed by: resident/REGULATOR ASSEMBLER/AA and anesthesiologistPreoxygenated with 100% O2: Yes C-spine [...] Interpretation Comments Lactic acid (test code = 35502-1) 2.4 mmol/L 0.5-2.2 H Results called to and read back by CRISTINA MELTON 09/13/2019 18:07 Lab Interpretation (test code = 26508-3) Abnormal [place] MethodistCT Abdomen Pelvis Wo Jvpkatpd3072-92-10 17:48:55Hm Interface, Radiology Results 09/13/2019 5:51 PM [...] care and Dr Brendan rodríguez offered to [facility] with them regarding the suspected perforation of this patient still in the ED .*[id number] home HzhvotaqeX-ugmsc3953-87-22 15:59:44* Test Item Value Reference Range Interpretation Comments D-dimer (test code = 48454-2) 1.24 0.00- 0.40 ug/mL FEU H Units [...] and malignancies. Lab Interpretation (test code = 95064-7) Abnormal [place] MethodistOccult blood, uwgyj4808-26-41 11:34:08* Test Item Value Reference Range Interpretation Comments Occult blood, stool (test code = 2334-1) Negative for occult blood. Specimen InformationSpecimen Source: StoolSpecimen Site: Nonpreserved [place] MethodistLipase xwsss9543-35-99 10:31:37* Test Item Value Reference Range Interpretation Comments Lipase (test code = 3040-3) 8 U/L 13-60 L Lab Interpretation (test code = 94792-9) Abnormal [place] MethodistChest Tube Kdkemugwu2455-81-55 09:24:33Miguel Celeste MD 09/14/2019 12:26 PMChest Tube [...] tolerance of procedure: Tolerated well, no immediate complicationsChildress [facility] Baoz1561-47-69 09:24:33Miguel Celeste MD 09/14/2019 12:26 PMCentral LinePerformed [...] Tolerated well, no immediate c omplicationsHouston MethodistCRITICAL GQEW1584-58-24 09:24:33Miguel Celeste MD 09/14/2019 12:26 PMCritical CarePerformed by: Miguel Celeste MDAuthorized by: Miguel Celeste MD Critical care provider statement: Critical care time (minutes): 93 Critical care time was exclusive of: Sepa rately billable procedures and treating other patients Critical care was necess vic to treat or prevent imminent or life-threatening deterioration of the follow ing conditions: 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 failure or compromise, circulatory failure, renal failure, [...] for this patient from another provider.: no [place] [facility]ieCritical [facility] hospital ED Preliminary Interpretation - Not an Znimb7656-95-61 09:24:33Miguel Celeste MD 09/14/2019 12:26 [facility] [place] Preliminary Interpretation - Not an OrderPerformed by: Miguel Celeste MDAuthorized by: Miguel Celeste MD ECG reviewed by ED Physician in the absence of a assistant professor of german: yes Previous ECG: Previous ECG: Compared to [...] aVFOther findings: Other findings: prolonged qTc interval [place] Nickiesan [facility]an [facility] medical centerLar Joint Arthrocentesis: shoulder, L subacromial yppjq8970-78-30 09:15:00Hiro Cruz MD 04/14/2019 9:55 AMLarge Joint Arthrocentesis: shoulder, L subacromial bursaConsent given by: patientSupporting DocumentationIndications: pain Procedure DetailsLocation: shoulder - L subacromial bursa Left side:Needle size: 22 GApproach: posteriorLeft shoulder medications administered: 80 mg methylPREDNISolone acetate 80 mg/mL; 3 mL lidocaine 10 mg/mL (1 %) [facility] Abdomen Pelvis W Vnucrjrv5567-05-34 07:58:27Hm Interface, Radiology Results 03/26/2019 8:01 AM [...] adjacent atelectasis and right lowe r lobe pneumonia/aspiration.[facility]-[id number] MethodistEchocardiogram complete w contrast and 3D if ugutaj6218-56-74 18:59:08* Test Item Value Reference Range Interpretation Comments Ao Root Diameter (test code = 7854795910) 3.70 cm AoV Area, Vmax (test code = 7435386722) 2.86 cm2 AoV Area, VTI (test code = 9374356892) 2.71 cm2 AoV Mean PG (test code = 1157196013) 2.34 mmHg AoV Peak PG (test code = 7599777602) 3.73 mmHg AoV Vmax (test code = 8095293376) 0.98 m/s AoV VTI (test code = 6868090913) 0.20 m BSA Bishop (test code = 1639003821) 1.55 m2 BSA (test code = 2273819062) 1.58 m2 IVS,d (test code = 8753193121) 0.82 cm IVS/LVPW,2D (test code = 5602898005) 1.02 Left Atrium Dimension Anterior (test code = 5411204894) 4.41 cm LV,d (test code = 5251048032) 4.39 cm LV EF,2D (test code = 6844291122) 64.75 % LV,s (test code = 9553286973) 3.10 cm LVOT area (test code = 3777742846) 3.20 cm2 LVOT Diam,S (test code = 8183157644) 2.02 cm LVOT Vmax (test code = 0655801415) 0.86 m/s LVOT VTI (test code = 1491907477) 0.16 m LVPWD,d (test code = 3678546533) 0.80 cm TR Vpeak (test code = 2642263865) 3.48 mm/s MV E A ratio (test code = 8539517433) 1.12 TR pk grad (test code = 0697678900) 43.71 mmHg AoV area i VTI BSA [place] (test code = 4553841292) 1.72 cm2/m2 BMI (test code = 3378547353) 18.56 kg/m2 E wave decelartion time (test code = 7905029014) 166.82 msec MV Peak A Gustavo (test code = 3120366869) 0.57 m/s MV valve area p 1/2 method (test code = 6172365654) 4.55 cm2 MV Peak E Gustavo (test code = 9155376576) 0.63 m/s MV stenosis pressure 1/2 time (test code = 6114149844) 48.38 ms AV LVOT peak gradient (test code = 5514221201) 2.99 mmHg Ao Root Diameter (test code = 6173010325) 3.70 cm MV mean gradient (test code = 0009354525) 1.33 mmHg LV SYS VOL (test code = 7165034174) 38.04 ml LV FARRIS VOL (test code = 9882364487) 87.44 ml LA area s A4C (test code = 5054808230) 20.69 cm2 LV SI Teich 2D (test code = 5040125372) 31.24 ml/m2 LV SV Teich 2D (test code = 2555219727) 49.39 ml LV Vol s Teich PSAX (test code = 4019172535) 38.04 ml LVOT CI (test code = 3059162198) 2.99 l/min/m2 LVOT CO (test code = 2962739154) 4.73 l/min LVOT HR for LVOT CO (test code = 7361003149) 90.60 bpm LVOT SI (test code = 9707960790) 33.04 ml/m2 MR peak grad (test code = 4727779582) 2.65 mmHg MV Vmax (test code = 2407767098) 0.81 m MV VTI Tips (test code = 9132805862) 0.15 m BSA Haycock (test code = 4981476007) 1.55 m2 AoV Vmn (test code = 2388191975) 0.74 IVS s 2D (test code = 1055244954) 1.00 LV FS Teich 2D (test code = 4273586234) 29.36 MV AE ratio (test code = 6723983822) 0.89 LV FS Cube 2D (test code = 9300302275) 29.36 LVOT Vmn (test code = 0899832918) 0.66 Pt Size (test code = 5174021331) 167.64 Pt Wt (test code = 7396018621) 52.16 Aov area Vmn (test code = 5345753697) 3.05 cm2 LA A_P score P (test code = 7580306496) 4.02 LVOT mean grad (test code = 7192456831) 1.84 mmHg MAX Pred HR (test code = 0478464220) 149.72 85 of MPHR (test code = 7971983053) 127.26 AoV area I VMN bsa (test code = 5702461967) 1.93 cm2/m2 Calc MPHR (test code = 2162101714) 149.72 bpm IVS pct thck PLAX (test code = 1719579931) 21.71 % LV SI Cube 2D (test code = 2650025109) 34.76 ml/m2 LV SV Cube 2D (test code = 2642236703) 54.96 ml LV vol d cube 2D (test code = 4000218654) 84.87 ml LV vol s cube 2D (test code = 3022687185) 29.91 ml LVPW pct thck PLAX (test code = 2797352041) 22.38 % LVPW s PLAX (test code = 2098835063) 0.98 cm MV Decel slope (test code = 0814837605) 3.79 m/s2 Pred Exer Dur R1 (test code = 4440765330) 6.79 Pred METS R1 (test code = 1684888195) 5.56 LA Vol MOD A4C (test code = 0608005055) 55.18 ml Velocity Ratio (V1/V2) (test code = 4689) 0.88 m/s EF (test code = 0912282286) 56.50 % E/A ratio (test code = 2095010091) 1.11 HALLIE (test code = HALLIE) Left ventricular systolic function is normal. Left Ventricular ejection fraction is 60 - 65%. There is mild sclerosis of the aortic valve leaflets. Moderate-severe tricuspid valve regurgitation. [place] MethodistAmylase eaask3008-26-87 12:42:25* Test Item Value Reference Range Interpretation Comments Amylase (test code = 1798-8) 22 U/L 28-100 L Lab Interpretation (test code = 78106-3) Abnormal [place] MethodistNicotine and cotinine, ibsiq8195-26-22 19:18:54* Test Item Value Reference Range Interpretation Comments Nicotine (test code = 3853-9) <2.0 0-1.9 Cotinine (test code = 42779-1) <2.0 0-1.9 This test was developed and its performance characteristics determined by the Department of Pathology and Genomic Medicine, [facility]. Serum nicotine and metabolite cotinine are tested by HPLC tandem mass spectrometry. It has not been cleared or approved by FDA. The laboratory is regulated under CLIA as qualified to perform high-complexity testing. This test is used for clinical purposes. It should not be regarded as investigational or for research. [facility]CT Angiogram Pe Yuvhr3039-98-36 10:35:33Hm Interface, Radiology Results 03/18/2019 10:38 AM [...] greater than right with small right and dcpjq-mv-vxyxwbjo left pleural effusion. Minimal biapical pleural and parenchymal scarring. No focal infiltrates. Pulmo nary vasculature is within normal limits. 6. Pleural Fluid: Small right and smal h-kt-eovcutlh left pleural effusions. 7. Bones: Degenerative changes [...] upper abdomin al gastric surgery as above. [facility]-[id number] IfdqtdhijYrrino0448-72-45 20:21:12Herbie Lopez MD 03/15/2019 8:22 PMAirwayDate/Time: 03/15/2019 [...] No Number of Attempts at Approach: 1 [facility] NIJV1656-51-61 11:35:19Miguel Celeste MD 03/15/2019 7:03 PMCritical CarePerformed [...]
[2020-01-05 06:29] LABS: ABG PCO2 89 mmHg (35-45); ABG PH 7.12 (7.35-7.45)
[2020-01-05 06:30] LABS: ABG HCO3 29 mmol/L (22-26); ABG PO2 51 mmHg (80-105); ABG TCO2 31
[2020-01-05] MEDS ORDERED: CALCIUM CHLORIDE 10% 1.36 MEQ/ML 10ML SYR IV STA (06:36)
[2020-01-05] MEDS ORDERED: DEXTROSE 50% SYRINGE 50 ML IV STA ×3 (06:36→10:05)
[2020-01-05] MEDS ORDERED: SODIUM BICARBONATE 8.4% INJ 50 ML SYR IV STA ×3 (06:36)
--- NOTE | 2020-01-05 06:38 | Diagnostic Imaging Report ---
EXAMINATION: CHEST SINGLE (PORTABLE) INDICATION: ^Y ^intubation COMPARISON: None FINDINGS: AP view TUBES and LINES: Endotracheal tube in place with tip approximately 3.2 cm above jerry. LUNGS: Lungs are well inflated. Diffuse bilateral airspace opacities. PLEURA: No significant pleural effusion or pneumothorax. HEART AND MEDIASTINUM: The cardiomediastinal silhouette is unremarkable. BONES AND SOFT TISSUES: No acute osseous lesion. Metallic scissor overlying left chest. Surgical clips projecting over left apex. UPPER ABDOMEN: No free air under the diaphragm. IMPRESSION: Diffuse bilateral airspace opacities, representing edema and/or pneumonia. Signed by: Dr. Дмитрий Samaniego MD on 01/05/2020 6:35 AM
[2020-01-05] MEDS ORDERED: ATROPINE SULFATE 1 MG/ML VIAL IV ONE ×2 (06:45)
[2020-01-05] MEDS ORDERED: EPINEPHRINE HCL 1:1000 1ML 1 MG/ML AMP INJ ONE ×5 (06:45→07:00)
--- NOTE | 2020-01-05 06:55 | NUR ---
REPORT GIVEN TO TRICIA FELDMAN
[2020-01-05 07:00] LABS: CLARITY,URINE CLEAR (CLEAR); COLOR,URINE YELLOW (YELLOW)
[2020-01-05 07:01] LABS: BILIRUBIN,URINE NEGATIVE (NEGATIVE); KETONES,URINE NEGATIVE (NEGATIVE); LEUKOCYTE ESTERASE ,URINE TRACE (NEGATIVE); NITRITE,URINE NEGATIVE (NEGATIVE); PROTEIN,URINE DIPSTICK TRACE (NEGATIVE)
[2020-01-05 07:09] LABS: EOSINOPHILS % (MANUAL) 7 % (0-7); LYMPHOCYTES % (MANUAL) 34 % (19-48); METAMYELOCYTES % (MANUAL) 1 % (0-0); MONOCYTES % (MANUAL) 5 % (3.4-9.0); NEUTROPHILS % (MANUAL) 52 % (40-74); NUCLEATED RED BLOOD CELLS 2
[2020-01-05 07:10] LABS: ANISOCYTOSIS SLIGHT; PLATELET ESTIMATE ADEQUATE; PLATELET MORPHOLOGY COMMENT RARE EDTA CLUMPING
[2020-01-05 07:11] LABS: RBC MORPHOLOGY COMMENT NORMAL
[2020-01-05 07:14] LABS: BACTERIA,URINE MANY /HPF; EPITHELIAL CELLS,URINE FEW /LPF; RBC,URINE 0-5 /HPF (0-5); TRANSITIONAL EPI CELLS,URINE MODERATE
--- NOTE | 2020-01-05 08:43 | NUR ---
Noted pt biting ETT, causing O2 sats to decrease, bilateral arm movement and pt moving head to painful stimuli now.
[2020-01-05] MEDS ORDERED: MIDAZOLAM HCL 2 MG/2 ML VIAL IV PRN (08:45)
[2020-01-05] MEDS ORDERED: PROPOFOL IV EMULSION 10MG/ML 100 ML IV SCH (08:45)
--- NOTE | 2020-01-05 08:45 | NUR ---
Order given for propofol gtt for sedation.
[2020-01-05] MEDS ORDERED: PROPOFOL IV EMULSION 10MG/ML 100 ML ONE (08:48)
[2020-01-05] MEDS: PROPOFOL IV EMULSION 10MG/ML 100 ML IV PRN ×3 (09:00→17:36)
[2020-01-05] MEDS ORDERED: MEROPENEM 500MG 500 MG in SODIUM CHLORIDE 0.9% 50ML 50 ML IV SCH (09:00)
[2020-01-05] MEDS ORDERED: LORAZEPAM INJ 2 MG/ML VIAL IV PRN (09:15)
[2020-01-05] MEDS: NOREPINEPHRINE 8 MG/D5W 250 ML 250 ML IV SCH ×2 (09:24→19:00)
--- NOTE | 2020-01-05 09:27 | NUR ---
BG 68 v/o order given by Janes Carey NP for 1 amp d50w.
[2020-01-05] MEDS: SILVER SULFADIAZINE 50GM CREAM TOP SCH (09:33)
[2020-01-05] MEDS: DEXTROSE 5%/0.9% SOD CHL 1,000 ML IV SCH ×2 (09:33→18:45)
[2020-01-05] MEDS ORDERED: DEXTROSE 50% SYRINGE 50 ML IV ONE ×2 (09:38→13:56)
--- NOTE | 2020-01-05 09:58 | Consultation ---
DATE OF CONSULTATION: Pulmonary consult, ICU care HISTORY OF PRESENT ILLNESS: The patient is seen in the emergency room, [facility], prolonged arrest with prolonged CPR, had to [facility]. History is obtained from the chart and from the patient's daughter, who is driving. Apparently, she had a history of bariatric surgery, gastric bypass, and Jaycob-en-Y, complicated by marginal ulcer, further complicated by anastomotic leak and eventual distal esophagectomy and apparent bypassing salivary drain, neck. She has a PEG tube. ALLERGIES: THERE ARE NO KNOWN ALLERGIES. MEDICATIONS: Her assisted medications included Tylenol, apixaban, alprazolam, Lasix, clonazepam, Levoxyl, Zyprexa, and Zoloft. PHYSICAL EXAMINATION: GENERAL: She is an elderly white female, intubated orally. There is a tube draining on the left side of her neck which is clamped and the clamp was removed and placed to an improvised bag at this time. Puente over the chest and upper abdomen. There is a PEG tube. LUNGS: Rhonchi, right greater than left. HEART: Regular rhythm. ABDOMEN: Nontender. EXTREMITIES: Edematous 1+. IMPRESSION: Chest x-ray confirms clinical impression of pneumonia, right greater than left, presumed aspiration, myoclonic jerks are noted. The patient is not responsive. PLAN: Plan is for continued supportive care. Daughter wishes to continue full support at this time. Consider neurologic evaluation later today. Obtain old records. Consider surgical opinion. It is unclear as to the operations and therapy that was performed. We will add broad-spectrum antibiotics to cover anaerobic organisms. ProTime is elevated. We will not continue anticoagulation at this time. Pulmonary embolus seems likely with elevated ProTime and the fact that the patient has been on apixaban. Continue IV fluids. Monitor blood sugars that she was hypoglycemic on admission. The patient's outlook is extremely poor. We will order benzodiazepine in an attempt to control myoclonus. We will also order propofol. Thank you for this kind referral. MD GRUPO Miller/NELLIEL /[id number]
[2020-01-05 10:02] LABS: ABG HCO3 27 mmol/L (22-26); ABG PCO2 52 mmHg (35-45); ABG PH 7.32 (7.35-7.45); ABG PO2 71 mmHg (80-105); ABG TCO2 28
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
[2020-01-05] MEDS: MEROPENEM 1GM 100 ML IV SCH ×2 (10:45→18:45)
[2020-01-05] MEDS ORDERED: DEXTROSE 10% 1,000 ML IV PRN (11:00)
[2020-01-05 11:02] LABS: CREATINE KINASE MB 16.7 ng/mL (0-5.0)
[2020-01-05] MEDS ORDERED: METOPROLOL TARTRATE INJ 1 MG/ML VIAL IV PRN (11:15)
[2020-01-05] MEDS ORDERED: ONDANSETRON HCL INJ 2MG/ML 2ML 2 MG/ML VIAL IV PRN (11:15)
--- NOTE | 2020-01-05 11:43 | Diagnostic Imaging Report ---
Abdomen, 1 view. History: Abdominal distention. Findings: Air is scattered throughout nondilated small and large bowel. Left femoral line and rectal catheter are noted. There are no masses or abnormal calcifications. The osseous structures are intact. IMPRESSION: Non-specific bowel gas pattern. Signed by: Narciso Araujo on 01/05/2020 11:40 AM
--- NOTE | 2020-01-05 13:01 | NUR ---
Paged Dr. Fair to notify of family request for additional information and temp of 100.0
--- NOTE | 2020-01-05 13:20 | NUR ---
Updated Dr. Fair and Janes Carey NP on poc.
[2020-01-05] MEDS ORDERED: ACETAMINOPHEN 325 MG SUPP PR ONE (13:30)
[2020-01-05] MEDS ORDERED: SODIUM BICARBONATE 8.4% INJ 50 ML SYR ONE (13:56)
[2020-01-05] MEDS ORDERED: ATROPINE SULFATE 0.1 MG/ML 10ML SYR ONE (13:56)
[2020-01-05] MEDS ORDERED: CALCIUM CHLORIDE 10% 1.36 MEQ/ML 10ML SYR IV ONE (13:56)
[2020-01-05] MEDS: PANTOPRAZOLE 40 MG 10ML VIAL IV SCH (14:02)
[2020-01-05 14:10] LABS: ABG PH 7.33 (7.35-7.45)
[2020-01-05 14:11] LABS: ABG HCO3 18 mmol/L (22-26); ABG PCO2 35 mmHg (35-45); ABG PO2 98 mmHg (80-105); ABG TCO2 19
--- NOTE | 2020-01-05 15:54 | NUR ---
EEG completed, DNAR ordered. Notified CN and ER physician. Remains stable at this time.
--- NOTE | 2020-01-05 17:56 | History and Physical ---
PRIMARY CARE PHYSICIAN: Jose Beatty MD. CONSULTING PHYSICIANS: Dr. Ross Caceres with Pulmonology/Critical Care Medicine. OUTPATIENT CATERING ASSISTANT: Dr. Caceres. CHIEF COMPLAINT: Cardiac arrest. HISTORY OF PRESENT ILLNESS: The patient is a 69-year-old female, who was admitted to the Emergency Department via [facility], presenting in cardiac arrest with DEEPIKA chest compressor in place. Per EMS staff, the patient was in PEA for 1 hour with 5 rounds of epi given. The patient is from the [facility] bed #106 and apparently had been admitted to [facility] on 11/04 from [facility], brought in by Dr. iNño for esophageal externalization. The patient was started on epinephrine drip by the Emergency Department physician, intubated, and a left femoral central venous catheter was placed. She has multiple abnormal labs such as potassium 5.9, WBCs 20.97, lactic acid greater than 13.4 on admission. The patient was given 1 g of calcium chloride, 3 amps of sodium bicarbonate and bolus by the ER physician. This is the patient's first visit to this facility. There are plans to transfer her to ICU, likely bed #192. Apparently, the patient was at the [facility] from 09/12 to 11/05/2019. She had a prolonged hospital course per documentation from the [facility]. Of note in December 2017, she had laparoscopic Jaycob-en-Y gastric bypass with HHR in 2016 requiring laparoscopic revision of gastrojejunal anastomosis. In February 2019, perforated marginal ulcer requiring wide drainage in G tube. She was admitted to [facility] on 09/13/2019 with abdominal pain, atrial fibrillation with RVR, left hydropneumothorax and pneumoperitoneum with a left chest tube with growth of E. coli and Streptococcus viridans. On 09/12, she had surgery due to esophageal perforation, resection of proximal stomach and distal esophagus, left decortication and intercostal muscle flap (jejunal contents were found in the mediastinum) with growth of MSSA, S viridans, C albicans. She was extubated on 09/14. Bronchoscopy and EGD done on 09/19. On 10/04, she had thoracoscopy and brachial artery thrombectomy, which was emergent. Her echocardiogram on 10/04 showed an ejection fraction of 60-64% with mild right ventricular enlargement, mild LAE, ALYCIA, mild MR, moderate TR, grade 3 severe diastolic dysfunction with impaired relaxation and restrictive filling pressures, PA systolic of 42. She went back to the operating room on 10/07 for left decortication (dense rind of inflammatory tissue), left 7th rib with acute osteomyelitis. Bedside tracheostomy on 10/12, CT on 10/15 showed new SQ collection in left chest external to the chest wall, persistent left empyema. On 10/31, status post laparoscopic remnant G-tube placement. Eliquis for atrial fibrillation was stopped on 12/03 with the last dose being in the morning. PAST MEDICAL HISTORY: Includes but is not limited to, hypothyroidism, acute kidney injury, anxiety, clotting disorder, alcohol abuse, paroxysmal atrial fibrillation, hypertension, hyperlipidemia, gastroesophageal reflux disease, anxiety, depression, compression deformity of vertebra T12, diverticulosis, hepatic steatosis, rheumatoid arthritis, pulmonary hypertension, syncope, UTI due to Enterococcus, obesity, peptic ulcer disease, chronic left shoulder pain, failure to thrive, perforated abdominal viscus, hospital-acquired pneumonia, severe sepsis, postoperative nausea and vomiting, moderate to severe tricuspid regurgitation, chronic severe diastolic congestive heart failure. PAST SURGICAL HISTORY: 1. Aforementioned 2016 Jaycob-en-Y gastric bypass with hiatal hernia repair, laparoscopic revision of gastrojejunal anastomosis and lap HHR (01/09/2018), complicated by perforated ulcer requiring wide drainage and laparoscopic G-tube placement (03/15/2019). 2. Ankle fracture surgery. 3. Bronchoscopy 09/23/2019 and 10/05/2019. 4. Femoral arterial embolectomy, 10/05/2019. FAMILY HISTORY: Lung cancer in mother, sister, and other sister; COPD in her son. SOCIAL HISTORY: Retired, , 3 children. Code status is full code, which was confirmed by Dr. Fair after conversation with the patient's daughter, Stephanie Andino, she is on her way from [place]. The patient is from [facility]. ALLERGIES: NO KNOWN ALLERGIES. MEDICATIONS: penitentiary medications: Acetaminophen 650 mg via PEG tube every 8 hours p.r.n. for pain, apixaban 5 mg via PEG tube b.i.d., Bisacodyl suppository 10 mg rectally daily p.r.n. for constipation, budesonide suspension 0.5 mg inhalation b.i.d. for shortness of breath, clonazepam 1 mg via PEG b.i.d. for anxiety, cyanocobalamin solution 100 mcg subcu every 28 days, famotidine 20 mg via PEG tube b.i.d. for GERD, flecainide acetate tablet 100 mg every 12 hours for arrhythmias, furosemide 20 mg via PEG tube daily for fluid retention, ipratropium bromide 0.02% inhalation orally every 6 hours while awake, levothyroxine 200 mcg tablet via PEG tube daily for hypothyroidism, midodrine 5 mg via PEG tube every 8 hours for hypotension, olanzapine 5 mg via PEG at bedtime for anxiety, ondansetron 4 mg via PEG tube every 8 hours p.r.n. for nausea, oxymetazoline hydrochloride solution 0.05% two sprays each nostril b.i.d. for nasal congestion, Phenyl aerosol solution 1.2% applied to mouth or throat topically every 6 hours p.r.n. for sore throat, sertraline tablet 25 mg via PEG tube daily for depression, zinc oxide ointment 20% to periarea topically every 8 hours as needed for irritation. REVIEW OF SYSTEMS: Unable to communicate with the patient and she is currently unresponsive on mechanical ventilation. PHYSICAL EXAMINATION: VITAL SIGNS: Temperature 93.8 core on admission at 4:56 a.m. this morning, heart rate was 36. More recent vital signs; temperature 94.8 core, heart rate 106, blood pressure 114/56, respirations 21, oxygen saturation 100%, height 5 feet 5 inches, weight 185 pounds, BMI 30.78. GENERAL: The patient is supine on a stretcher in emergency department room #1 with warming blanket covering her. LUNGS: Rhonchi bilaterally. She has a size 7.5 ET tube that is approximately 22 cm on the right side on [facility] with a rate of 16, FiO2 of 100%, tidal volume 440, PEEP of 5, peak pressure 47, minute ventilation 9.1. In the center of her upper chest, she has a tube protruding which likely goes to the esophagus. HEENT: Sclerae anicteric. Orally intubated. NECK: No lymphadenopathy, thyromegaly, or JVD noted. CARDIOVASCULAR: Tachycardia without murmur appreciated. Left femoral central venous catheter, currently has epinephrine at 30 mcg/minute, Levophed at 25 mcg/minute and the nurse is currently hanging propofol. ABDOMEN: No bowel sounds appreciated. Lechuga catheter with jese urine. She has a PEG to intermittent low wall suction. EXTREMITIES: Right lower extremity with previous intraosseous site with dressing covering. No pitting edema. No clubbing, cyanosis, or signs of DVT noted. NEUROLOGIC: The patient is nonresponsive. Her eyes are midway open. She is having myoclonic jerks and biting her ET tube. INTEGUMENTARY: She has an abrasion on the center of her chest from where the Deepika device for manual compressions was utilized. She has a left thoracotomy incision with tape covering. LABORATORY DATA: WBC is 10.97, hemoglobin 10.1, hematocrit 36.1, platelets 324, neutrophils 50.7%. Initial ABG 525, this morning, pH 6.8, pCO2 of 130, pO2 of 49, FiO2 of 100%. Subsequently at 6:08 a.m., ABG, pH 7.12, pCO2 of 89, pO2 of 51, HC03 of 29, oxygen saturation 70%, base excess of -1, FiO2 of 100% and at 9:38 a.m. this morning, pH 7.32, pCO2 of 52, pO2 of 71, HCO3 of 27, oxygen saturation 92%, base excess of 1.0, FiO2 of 100%. PT 31.8. INR 2.91, PTT 78.5. D-dimer greater than 5000. Sodium 133, potassium 5.9, chloride 89, CO2 of 21, anion gap 28.9, BUN 18, creatinine 0.74, estimated GFR greater than 60, glucose 51, lactic acid greater than 13.4 then subsequently 12.8, calcium 10.1, total bilirubin 1.0, AST 723, ALT 409, alkaline phosphatase 1046. Creatine kinase 138, CK-MB 3.6, troponin I 0.110. Total protein 6.7, albumin 2.1. Subsequently, creatine kinase 303, CK-MB 16.7, troponin I 1.244. Subsequent glucose at around 10:00 a.m. is 161. Urinalysis showed pH 6.5, specific gravity 1.025, trace amount of protein, negative for nitrites, negative for bilirubin, urobilinogen 4.0, leukocyte esterase trace amount, wbc 6-10, many urine bacteria. Coronavirus PCR collected this morning remains pending. Blood cultures x2 and urine culture results are pending. IMAGING/OTHER: A 12-lead EKG had shown sinus tachycardia with first-degree AV block with a heart rate of 105. Per radiologist, chest x-ray showed diffuse bilateral airspace opacities representing edema and/or pneumonia. KUB has been completed. Results from the interpreting radiologist are pending. ASSESSMENT/PLAN: 1. Cardiac arrest, POA, with asystole and probable PE, now in sinus tachycardia with first-degree AV block, myoclonus. Dr. aFir (associated with Dr. Caceres) with Pulmonology/Critical Care Medicine has seen and evaluated the patient. Per his consultation note, daughter does want to continue full support at this time. The recommendations are to consider neurologic evaluation and surgical opinion. Anticoagulation is to be held. Pulmonary embolus seems likely with elevated protime and the fact that the patient has been on apixaban. Continue IV fluids. Benzodiazepine will be ordered to control the myoclonus as the patient has been biting her ET tube, also order for propofol. The patient will likely be transferring to ICU bed #[address]. [address] Fair's note, the patient's outlook is extremely poor. 2. Acute respiratory failure, status post intubation. Continue ventilatory support, currently in PRVC mode. Appreciate recommendations from Pulmonology/Critical Care Medicine. 3. Severe sepsis with possible HCAP (healthcare-associated pneumonia) and probable urinary tract infection, severe hypothermia. Broad-spectrum antibiotics were started; patient has been started on Merrem. Consider Infectious Disease consult. WBC is 20.97. On admission, lactic acid greater than 13.4, and more recently lactic acid 12.8. Continue IV fluids. 4. Acute hyperkalemia with potassium level 5.9. Continue IV fluids and monitor labs. BUN 18, creatinine 0.74, estimated GFR greater than 60.Reassess potassium in a.m. 5. Elevated D-dimer, probable pulmonary embolism. Currently no orders for CT of the chest. We will defer to Pulmonology/Critical Care Medicine. 6. Status post (10/31) laparoscopic remnant G-tube placement with history of (12/2017) laparoscopic Jaycob-en-Y gastric bypass with HHR requiring laparoscopic revision of gastrojejunal anastomosis, positive history of (09/13/2019), esophageal perforation repair with resection of proximal stomach and distal esophagus, left decortication and intercostal muscle flap; esophageal externalization.Consider GI consult. 7. Chronic severe diastolic congestive heart failure with moderate to severe tricuspid regurgitation. Consider getting echocardiogram. Monitor telemetry. Consider Cardiology consult. 8. Transaminitis with history of hepatic steatosis. AST 723, ALT 409, alkaline phosphatase 1046, total bilirubin 1.0. Monitor. Consider Gastroenterology consult. 9. Prophylaxis. IV Protonix and SCDs. DISPOSITION: Patient will likely transfer to ICU bed #192. I will plan on discussing the case with the patient's daughter when she arrives from [place]. The patient likely has a very poor prognosis considering that she was in PEA for an hour before arrival, arrived in asystole. I concur with Dr. Fair that a neurologic evaluation is appropriate. Currently, code status is full code. Inpatient, billing code [id number], time spent 1 hour. ADDENDUM: Daughter opted to change code status to DNR. Dictated by Janes Carey, CHETAN MD TAYLOR KellyP/MODL /[id number]
--- NOTE | 2020-01-05 19:01 | NUR ---
Pt extremely sensitive to decrease in BP supportive meds. Pt currently remains on Levophed and Epinephrine gtt. Propofol gtt infusing at low dose for sedation. Silver sulfadine applied to open areas of skin that appear to be friction hong from CPR device. Pt at this time, resting with no movement. Does not respond to painful stimuli
[2020-01-05 19:09] LABS: MAGNESIUM 1.4 MG/DL (1.3-2.1); PHOSPHORUS 3.6 MG/DL (2.3-4.7)
[2020-01-05 19:15] LABS: CALCIUM IONIZED 1.1 mmol/L (1.09-1.30)
[2020-01-05 19:26] LABS: CREATINE KINASE MB 18.9 ng/mL (0-5.0)
[2020-01-06] MEDS: DEXTROSE 5%/0.9% SOD CHL 1,000 ML IV SCH ×2 (00:45→07:30)
[2020-01-06] MEDS: MEROPENEM 1GM 100 ML IV SCH ×2 (01:58→11:38)
[2020-01-06] MEDS: EPINEPHRINE HCL 1:1000 1ML 4 MG in DEXTROSE 5% 250ML 250 ML IV PRN ×2 (04:15→12:06)
[2020-01-06 06:32] LABS: BASOPHILS # (AUTO) 0.3 (0.0-0.1); BASOPHILS % 0.8 % (0.0-1.0); EOSINOPHILS % 3.2 % (0.0-6.0); HEMATOCRIT 33.1 % (34.2-44.1); HEMOGLOBIN 10.5 g/dL (12.0-16.0); LYMPHOCYTES # (AUTO) 1.4 (1.0-3.2); LYMPHOCYTES % 4.3 % (18.0-39.1); MEAN CORPUSCULAR HEMOGLOBIN 30.3 pg (28-32); MEAN CORPUSCULAR HGB CONC 31.7 g/dL (31-35); MEAN CORPUSCULAR VOLUME 95.7 fL (81-99); MONOCYTES # (AUTO) 1.7 (0.2-0.8); MONOCYTES % 5.2 % (4.4-11.3); NEUTROPHILS # (AUTO) 27.3 (2.1-6.9); NEUTROPHILS % 85.3 % (38.7-80.0); PLATELET COUNT 311 x10e3/uL (140-360); RED BLOOD COUNT 3.46 x10e6/uL (3.6-5.1); RED CELL DISTRIBUTION WIDTH 17.4 % (11.7-14.4)
[2020-01-06 07:02] LABS: ANION GAP 23.2 mmol/L (8-16)
[2020-01-06 07:13] LABS: CALCIUM 8.3 mg/dL (8.4-10.2); CREATININE, SERUM 1.23 mg/dL (0.57-1.11); POTASSIUM 4.2 mmol/L (3.5-5.1)
--- NOTE | 2020-01-06 07:15 | NUR ---
ISAAC IN LAB CALLED AND REPORTED ABNORMAL LAB VALUES (WBC 32, NA 126, K 4.2, CREATININE 1.23, AND CALCIUM 8.3). NOTIFIED PTS ASSIGNED RNCASPER RN TO NOTIFY ADMISSION MD
[2020-01-06 07:27] LABS: CREATINE KINASE MB 11.6 ng/mL (0-5.0)
[2020-01-06 07:41] LABS: PROTHROMBIN TIME 62.9 seconds (11.9-14.5)
[2020-01-06 07:42] LABS: INR 6.93
[2020-01-06 07:45] LABS: CHOL/HDL RATIO 10.4 (3.0-3.6); MAGNESIUM 1.2 MG/DL (1.3-2.1); PHOSPHORUS 4.1 MG/DL (2.3-4.7)
--- NOTE | 2020-01-06 07:49 | NUR ---
AM critical labs reported to Janes Carey NP. PT:62.9 INR:6.93
[2020-01-06 08:05] LABS: THYROID STIMULATING HORMONE 11.849 uIU/mL (0.350-4.940)
[2020-01-06] MEDS ORDERED: MAGNESIUM SULFATE 2GM/50ML 50 ML IV ONE (08:15)
--- NOTE | 2020-01-06 08:17 | Diagnostic Imaging Report ---
TECHNIQUE: Frontal view of the chest. INDICATION: ^aspiration ^[id number] ^0530 COMPARISON: Prior day. DISCUSSION: Limited evaluation due to portable technique. Lines and hardware: Stable endotracheal tube projecting 3.6 cm above the jerry. Heart and mediastinum: Stable. Lungs and pleura: Mild interval improvement in aeration with diffuse right greater than left airspace opacities. Stable blunting of the costophrenic angles. Soft tissues and bones: No acute abnormality. IMPRESSION: 1. Mild interval improvement in right greater than left diffuse airspace opacities. Trace effusions are stable. 2. Stable endotracheal tube. Signed by: Renaldo Blair MD on 01/06/2020 8:14 AM
[2020-01-06 08:18] LABS: BAND NEUTROPHILS % (MANUAL) 16 %; EOSINOPHILS % (MANUAL) 3 % (0-7); LYMPHOCYTES % (MANUAL) 3 % (19-48); MONOCYTES % (MANUAL) 4 % (3.4-9.0); MYELOCYTES % (MANUAL) 2 % (0-0); NEUTROPHILS % (MANUAL) 71 % (40-74)
[2020-01-06 08:19] LABS: ANISOCYTOSIS SLIGHT; POLYCHROMASIA FEW
[2020-01-06 08:20] LABS: PLATELET ESTIMATE ADEQUATE; PLATELET MORPHOLOGY COMMENT RARE EDTA CLUMPING; RBC MORPHOLOGY COMMENT ABNORMAL
--- NOTE | 2020-01-06 08:33 | NUR ---
Paged Dr. Fair/Faisraell legal secretary receptionist number awaiting return call.
--- NOTE | 2020-01-06 08:42 | NUR ---
Dr. Fair at bedside, updating on meds and lab levels. Stopping propofol per MD request.
--- NOTE | 2020-01-06 09:03 | NUR ---
Dr. Fair came back to bedside, noted pt jerking and biting ETT tube. Per his verbal order he stated this propofol can remain on if pt becomes to agitated.
[2020-01-06] MEDS ORDERED: VANCOMYCIN 500MG/NS 0.9% 100ML 100 ML IV SCH (09:15)
[2020-01-06] MEDS ORDERED: PHYTONADIONE 10 MG/ML AMP IM NR (09:15)
[2020-01-06] MEDS ORDERED: PHYTONADIONE 10MG/ML 1 ML ONE (09:24)
[2020-01-06] MEDS: PANTOPRAZOLE 40 MG 10ML VIAL IV SCH (09:32)
[2020-01-06] MEDS: SILVER SULFADIAZINE 50GM CREAM TOP SCH (09:35)
[2020-01-06] MEDS: NOREPINEPHRINE 8 MG/D5W 250 ML 250 ML IV SCH (12:16)
[2020-01-06] MEDS ORDERED: PROPOFOL IV EMULSION 10MG/ML 100 ML IV SCH (12:30)
--- NOTE | 2020-01-06 13:10 | NUR ---
RIGGER APPRENTICE AT BEDSIDE. UPON STARTING TEST. PATIENT HR INCREASED TO 130'S. RR 24, O2 SAT 100%, BP 120/47
--- NOTE | 2020-01-06 13:25 | Progress Note ---
DATE: CONSULTING PHYSICIANS: 1. Dr. Wily Villanueva with Neurology. 2. Dr. Caceres with Pulmonology/Critical Care Medicine. SUBJECTIVE: The patient has drops in oxygen saturation and blood pressure with any repositioning. The patient's ER nurse, Gracy reports approximately 100 mL urinary output total for 01/04. The patient is extremely ill with a poor prognosis and was changed to DNR status per the patient's daughter yesterday after extensive discussion with her over the phone. Currently, telemetry shows sinus rhythm with heart rate 82. She remains on Levophed at a maxed out rate and epinephrine drip as well as propofol, mechanically ventilated with anasarca. Thus far, no CT has been done as the patient has been too unstable. OBJECTIVE: VITAL SIGNS: Temperature 98.6, pulse 82, blood pressure 127/56, respirations 27, and oxygen saturation 100%. Intake and output not documented. GENERAL: Supine, orally intubated on mechanical ventilation. Anasarca. LUNGS: Rhonchi bilaterally. Diminished in the bases. She has a size 7.5 ET tube. This approximately 22 cm at the lip on the right-hand side. Current ventilator settings; PRVC 20, tidal volume 440, FiO2 of 100%, PEEP of 8, peak pressure 36, and minute ventilation 9.4. In the center of her upper chest, she has a tube protruding which reportedly goes to the esophagus. HEENT: Bite block in place. Blinking and some eye movements noted. NECK: Supple. CARDIOVASCULAR: Irregularly irregular. Epinephrine infusing at 20 mcg/minute and Levophed at 30 mcg/minute into the left femoral central venous catheter. D5 normal saline at 125 mL an hour. ABDOMEN: No bowel sounds appreciated. Lechuga catheter with yellow urine. Minimal amount. She has a PEG to intermittent low wall suction. EXTREMITIES: Right lower extremity with previous interosseous site with orange-colored dressing covering. Generalized edema and anasarca. No clubbing, cyanosis, or signs of DVT noted. NEUROLOGIC: The patient blinks at times, less myoclonus today than yesterday. Pupils appear reactive to light at 4+ bilaterally. Propofol infusing at 5 mcg/kg/minute at present. She is not currently biting her ET tube. INTEGUMENTARY: Shows an abrasion on the center of her chest from where the Luisito chest compressor device for manual compressions was utilized. She has a left thoracotomy incision with compressive tape covering. LABORATORY DATA: WBCs 32.07, hemoglobin 10.5, hematocrit 33.1, platelets 311, neutrophils 85.3%. Most recent ABG was yesterday at approximately 1358 hours; pH 7.33, pCO2 35, PO2 98, HC03 18, oxygen saturation 97%, base excess of negative 7, and FiO2 of 100%. PT 62.9 and INR 6.93. Sodium 126, potassium 4.2, chloride 86, CO2 21, anion gap 23.2, BUN 23, creatinine 1.23, estimated GFR 43, and glucose 82. Hemoglobin A1c 4.6%, calcium 8.3, phosphorus 4.1, and magnesium 1.2. Creatine kinase 388, CK-MB 11.6, and troponin I 1.173. Triglycerides 114, cholesterol 114, LDL 80, and HDL 11. TSH 11.849. Coronavirus PCR collected 01/04, remains pending. 01/04, preliminary urine culture shows culture in progress with re-incubation required. Blood cultures x2 collected 01/04, have many gram-positive cocci in pairs and chains. This is a preliminary result. IMAGING/OTHER: EEG done 01/04 with results pending. 01/05, chest x-ray showed mild interval improvement in right greater than left diffuse airspace opacities. Trace effusions are stable. Stable endotracheal tube. 01/05, CT of the chest, abdomen and pelvis without contrast has been ordered, but is yet to be done, as the patient is very unstable, unable to tolerate going to CT without pressors. ASSESSMENT AND PLAN: 1. Cardiac arrest, present on admission with pulseless electrical activity for one hour and presenting in asystole and probable pulmonary embolism, now in sinus rhythm. Dr. Fair with Pulmonology/Critical Care Medicine was called by TRICIA Dubose to notify of significant lab or abnormalities this morning. Code status was changed to DNR yesterday after discussion with the patient's daughter. EEG results pending. Dr. Vilalnueva with Neurology will likely see the patient today. Anticoagulation held. Continue IV fluids. Benzodiazepines started yesterday for myoclonus. Attempt to wean propofol as tolerated. Currently, the patient not biting ET tube. Overall, outlook and prognosis is likely poor. Hopefully, ICU bed will open today and the patient will be able to be transferred; ICU has remained at full capacity. 2. Acute respiratory failure, status post intubation. Continue ventilatory support. Currently in PRVC mode. Appreciate recommendations from Pulmonology/Critical Care Medicine. 3. Severe sepsis with possible healthcare-associated pneumonia and probable urinary tract infection, severe hypothermia has improved. Continue vasopressors, epinephrine and Levophed, but wean epinephrine as tolerated. Continue IV fluids, D5 NS at 125 mL an hour. WBC 32 while on Merrem, vancomycin 500 mg IV q.12 hours along with vancomycin trough has been ordered. Consider rechecking lactic acid level. 4. Coagulopathy with elevated INR, PT, and D-dimer, probable pulmonary embolism. CT of the chest, abdomen and pelvis without contrast has been ordered, however, currently the patient is too unstable to go to CT. Monitor closely. 5. Chronic severe diastolic congestive heart failure with [id number] tricuspid regurgitation. Consider echocardiogram depending upon plan after learning EEG results. Monitor telemetry closely. Troponin 1.173 (2.052, 1.244). Chest x-ray shows mild interval improvement in right greater than left diffuse airspace opacities with stable trace effusions. 6. Transaminitis with history of hepatic steatosis. 01/04; AST 723, ALT 409, alkaline phosphatase 1046, and total bilirubin 1.0. Reassess in the morning. 7. Acute hypermagnesemia. Magnesium level 1.2 (1.4), 2 g magnesium sulfate IV once ordered. Reassess magnesium tomorrow. 8. Acute hyponatremia. Sodium level 126 (133). Monitor sodium level closely. Serum glucose 82, currently not receiving nutrition. We will need to continue D5 normal saline IV fluids. 9. Prophylaxis. IV Protonix. INR equals 6.93. 10. Disposition. The patient will likely transfer to ICU today if bed available. Case discussed with the patient's daughter yesterday at bedside. She understands the patient has a very poor prognosis and opted to change her code status yesterday to DNR. We will await recommendations from Neurology. Inpatient, billing code [id number], time spent 40 minutes. Dictated by Janes Carey NP Jose Beatty MD HWP/MODL /[id number]
--- NOTE | 2020-01-06 13:27 | NUR ---
Pt converted from Afib with rvr to afib in 70's. Currently speaking with daughter Stephanie, daughter has repeatedly called and is angry that pt is still in ED and upset that she has not heard from MD redarding results of EEG or neurologist. Advised Daughter earlier in the day she could visit patient, but she did not come. Pt remains on medication for pressure support.
--- NOTE | 2020-01-06 14:00 | NUR ---
Nursing report given to Bradley CLARKE.
[2020-01-06 14:03] VITALS: BP 102/34
--- NOTE | 2020-01-06 14:45 | NUR ---
Dr Luis Brown at bedside allowed patient to get in bed with patient per request to say her kalina emotional support given , Laura Marrero talked with daughter. Patient very very critical upon arrival, agonal breathing, in and out of VTach, weak femoral pulse.
--- NOTE | 2020-01-06 15:10 | NUR ---
Patient went into VTach HR 181 , rr 29 no b/p , T 99.8, o2 sats 70 on 100%, gas charger Aurelio remains at bedside see his notes. 15;20 31 RR 10 sats 70%. Patient went pea and asystole. See History and physical and notes from [email or web address] Fair
--- NOTE | 2020-01-06 16:09 | NUR ---
Pastoral transport assistant at bedside and prayed with daughter
--- NOTE | 2020-01-06 16:14 | NUR ---
ASSESSMENT: Spiritual distress Pt's daughter in bed w/ patient expressing grief thru words and tears. Pt's daughter states pt identified as non-advent Hindu. Intervention: Provided calming pastoral presence and prayer of committal. Provided business card and expressed condolences. Outcome: Pt's daughter stated, "Thank you for coming." [facility] will mail condolence letter and brochure on grief. MIHAELA VIRK [facility] O: [phone]
--- NOTE | 2020-01-06 17:06 | Electroencephalogram ---
DATE OF STUDY: REQUESTING PHYSICIAN: STUDY: 30-minute EEG. INDICATION: Study being done to evaluate for brain . EEG DATA: A low amplitude beta activity, less than 10 microvolts, about 12-14 hertz, anteriorly predominant. Low-amplitude less than 10 microvolt alpha activity in the 9V frequency with intermittent periods of attenuation. Occasional left temporal theta activity of high amplitudes of 40 microvolts, at times left and at times right hemispheric, suggesting rhythmic theta activity. EEG INTERPRETATION: This EEG is abnormal level three for severe diffuse encephalopathy . ASHLEY MCKEON MD RR/MODL /[id number]
--- NOTE | 2020-01-06 18:17 | NUR ---
Phoned Daughter Stephanie [phone] she answered this time and said [facility] . Called and spoke with Sandro ([phone])
--- NOTE | 2020-01-06 18:21 | Consultation ---
DATE OF CONSULTATION: Critical Care Consultation. HISTORY OF PRESENT ILLNESS: Mrs. Tonja Spencer is a 69-year-old female comes in to emergency room, transferred after cardiac [facility]. The patient had prolonged [facility] reports that she would have been in that state for about an hour. Apparently, she has history of bariatric surgery, gastric bypass, vaginal ulcer and anastomotic leak. She is not able to give any past medical history, surgical history, etc to her clinical status. When she was at [facility], she received 5 rounds of epi and had previously been in [facility] on 11/04 from [facility] for esophageal externalization. PAST MEDICAL HISTORY: Includes but not limited to hypothyroidism, acute kidney injury, anxiety, clotting disorder, alcohol abuse, paroxysmal atrial fibrillation, hypertension, hyperlipidemia, GERD, anxiety, depression, shoulder pain, and severe diastolic heart failure. SOCIAL HISTORY: Retired and with three kids. PHYSICAL EXAMINATION: VITAL SIGNS: Right now, the patient is afebrile at 99.2, heart rate is variable from 80s to 130s, blood pressure on pressors is 118/59. She is saturating 100%, overbreathing the vent. HEENT: Her extraocular muscles are mute. No response to oculocephalics. No response to cold calorics. Her pupils are 5 mm and unresponsive. She has conjunctival edema. Her reflexes are absent. She does respond to noxious stimulation hands and feet. ABDOMEN: Soft. CARDIOVASCULAR: Tachycardic. NEURO: No gag reflex is elicited when I turn down the respiratory rate on machine. She does over breathe the vent. ASSESSMENT AND PLAN: The patient's exam suggests severe anoxic brain injury, both supratentorial and infratentorial with substantial diffuse neurological injury. However, there is some limitation due to proximity to her code and sedation. Other medications are on board. However, the exam of the brain showed absence of the majority of brainstem reflexes, highly concerning for diffuse neurological injury. I spoke with the daughter and I explained her poor prognosis, her general clinical instability and critical nature of her illness. She states that she course of action, but otherwise see her mother again before she makes a final decision. An EEG was done that shows low amplitude alpha and beta activity with short runs of theta activity, which is consistent with comatose state, but not brain . [address] critical care consultation on an acutely ill patient, who crashed during our exam and required a Code Blue to PEA arrest. A 30 minutes at the bedside with the daughter and reviewing imaging and diagnostics. MD JAMIE GIL/MODL /[id number]
--- NOTE | 2020-01-06 19:00 | NUR ---
pt received from dayshift rn already pronounced. waiting on home to pick pt up.
--- NOTE | 2020-01-06 21:17 | Discharge Summary ---
DATE OF : 01/06/2020. CONSULTING PHYSICIANS: Dr. Wily Villanueva with Neurology and Dr. Ross Caceres with Pulmonology/Critical Care Medicine. CHIEF COMPLAINT: Cardiac arrest. HISTORY: The patient was a 69-year-old female, who was admitted to the emergency department of [facility] via [facility] presenting in cardiac arrest with DEEPIKA chest compressor in place. Per the EMS staff, the patient had been in PEA for 1 hour with 5 rounds of epinephrine given. The patient had been through a long hospitalization at the [facility] in the [facility] from 09/13/2019 to 11/05/2019. The patient was then transferred from the [facility] to [facility] in [place] on 11/04, brought in by Dr. Niño for esophageal externalization. The patient was admitted to [facility] ER from the [facility] on 01/05/2020, from bed #106 at the [facility] to the ER bed #1. She was started on epinephrine drip by the emergency department physician, intubated, and a left femoral central venous catheter was placed. She had multiple abnormal labs on admission, such as potassium level 5.9, WBCs 20.97, lactic acid greater than 13.4 on admission. The patient was given 1 g of calcium chloride, 3 amps of sodium bicarbonate, and bolus by the ER physician. There were plans to transfer the patient to ICU; however, at that point, bed capacity in ICU was full. Per documentation sent with the patient, in December 2017, she had laparoscopic Jaycob-en-Y gastric bypass with HHR in 2016 requiring laparoscopic revision of gastrojejunal anastomosis. In February 2019, perforated marginal ulcer requiring wide drainage, NG tube. She was admitted to the [facility] on 09/13/2019, with abdominal pain, atrial fibrillation with RVR, left hydropneumothorax, and pneumoperitoneum with a left chest tube with growth of E. Coli and Streptococcus viridans. On 09/12, she had surgery due to esophageal perforation, resection of proximal stomach and distal esophagus, left decortication, and intercostal muscle flap (jejunal contents were found in the mediastinum) with growth of MSSA, Streptococcus viridans, and Kemi albicans. She was extubated on 09/14. Please see dictated history and physical from 01/04 for full details from history of present illness as well as the patient's past medical, surgical, family, and social history. ADMITTING DIAGNOSES: 1. Cardiac arrest, present on admission with asystole and probable pulmonary embolism, now in sinus tachycardia with first-degree AV block, myoclonus. 2. Acute respiratory failure, status post intubation. 3. Severe sepsis with possible health care-associated pneumonia and probable urinary tract infection, severe hypothermia. 4. Acute hyperkalemia with potassium level 5.9. 5. Elevated D-dimer, probable pulmonary embolism. 6. Status post (10/31) laparoscopic remnant G-tube placement with history of (12/2017) laparoscopic Jaycob-en-Y gastric bypass with hiatal hernia repair requiring laparoscopic revision of gastrojejunal anastomosis, positive history of (09/13/2019) esophageal perforation repair with resection of proximal stomach and distal esophagus, left decortication, and intercostal muscle flap; esophageal externalization. 7. Chronic severe diastolic congestive heart failure with [id number] tricuspid regurgitation. 8. Transaminitis with history of hepatic steatosis. HOSPITAL COURSE: The patient has poor prognosis, which was shared with the patient's daughter who was en route from [place], and she opted at that time to change the code status to DNR. Case was discussed with Dr. Beatty and Dr. Fair and it was mutually agreed that a neurologic evaluation was appropriate in this and EEG was ordered. The EEG was done on 01/[address] Villanueva, who saw and evaluated the patient today, she did have brain activity. Today 01/05, while still in ER bed #1, she was having drops in oxygen saturation and blood pressure with even slight repositioning. RN reported that she only had 100 mL urine output on 01/04 as a total urine output. In short, her INR was elevated at 6.93 today and she was given a phytonadione 10 mg IM. Her epinephrine and Levophed are nearly maxed out. She was unstable and unable to get her to the CT scanner for CT of the chest, abdomen, and pelvis. WBCs 32 today while on Merrem and she was given vancomycin 500 mg IV, magnesium sulfate 2 g IV once for magnesium level 1.2. Please see progress note dictated today, 01/06/2020, for specifics from today. A "soft" code was called in the ER as the patient went into SVT and Dr. Mcgee, the emergency department physician gave a precordial thump, which did bring her out of SVT; however, the patient subsequently went into ventricular tachycardia. She was manually ventilated with Ambu bag by Respiratory Therapy. She was transferred from ER bed #1 to ICU bed #196. She remained DNR and even after transfer from the ER to ICU, she still had a pulse. At 2:36 p.m., the patient's daughter was still on her way. After arriving to ICU bed #196, she went from ventricular tachycardia to agonal rhythm with a heart rate of 25. At 2:45 p.m., she still had a pulse and her daughter was at the bedside. Her daughter was allowed to say goodbye to her mother and the patient was pronounced by Dr. Fair at 3:30 p.m. All alarms were turned off and the ventilator was disconnected by Dr. Fair. Condolences were provided to the patient's daughter, and Dr. Beatty was notified. Dictated by Janes Carey NP MD TAYLOR KellyP/WALDO /[id number]
== END 2020-01-06 20:10 | disposition expired | DRG 871 ==
LOC: ER 04:57 → ERHOLD 05:53 → ICU 01-06 14:58
PROVIDERS: ADMIT Internal Medicine; ATTEND Internal Medicine
PROC: 5A12012 Performance of Cardiac Output, Single, Manual (ICD-10-PCS; principal; 2020-01-05)
PROC: 5A1935Z Respiratory Ventilation, Less than 24 Consecutive Hours (ICD-10-PCS; 2020-01-05)
PROC: 0BH17EZ Insertion of Endotracheal Airway into Trachea, Via Natural or Artificial Opening (ICD-10-PCS; 2020-01-05)
PROC: 02HV33Z Insertion of Infusion Device into Superior Vena Cava, Percutaneous Approach (ICD-10-PCS; 2020-01-05)
PROC: 3E043XZ Introduction of Vasopressor into Central Vein, Percutaneous Approach (ICD-10-PCS; 2020-01-05)
DX: A41.9 Sepsis, unspecified organism (principal); J96.00 Acute respiratory failure, unspecified whether with hypoxia or hypercapnia; I26.99 Other pulmonary embolism without acute cor pulmonale; J69.0 Pneumonitis due to inhalation of food and vomit; N39.0 Urinary tract infection, site not specified; I50.32 Chronic diastolic (congestive) heart failure; E87.1 Hypo-osmolality and hyponatremia; G93.1 Anoxic brain damage, not elsewhere classified; I46.9 Cardiac arrest, cause unspecified; R65.20 Severe sepsis without septic shock; Z80.1 Family history of malignant neoplasm of trachea, bronchus and lung; Z82.5 Family history of asthma and other chronic lower respiratory diseases; E87.5 Hyperkalemia; Z93.1 Gastrostomy status; Z98.84 Bariatric surgery status; R74.01 Elevation of levels of liver transaminase levels; Z66 Do not resuscitate; E83.41 Hypermagnesemia; Z11.59 Encounter for screening for other viral diseases
CPT/HCPCS: 31500; 36415; 36555; 36600; 51700; 71045; 74018; 80048; 80053; 80061; 81001; 82550; 82553; 82805; 82947; 82948; 83036; 83605; 83735; 84100; 84443; 84484; 85025; 85379; 85610; 85730; 87040; 87071; 87086; 87186; 87205; 92950; 93005; 93306; 94002; 94003; 95822; 99285; J0171; J2250; J3370; J3430; J3475; J7030; J7042; J7070; J7799